=== PATIENT | male | born 1970 | race Caucasian/White ===

== ENCOUNTER → 2017-11-04 13:32 | Outpatient (CLI) | payer MEDICAID, SELFPAY ==
[2017-11-04 13:58] LABS: Hematocrit 34.9 % (40-54); Hemoglobin 11.5 g/dl (13.0-16.5); Mean Corpuscular Volume 94.1 fL (80-94); Mean Platelet Vol. 8.6 fl (6.2-12.0); Platelet Count 400 K/mm3 (150-450); RBC Distribution Width CV 14.4 % (11.6-14.6); RBC Distribution Width SD 47.2 fl (35.1-43.9); Red Blood Count 3.71 M/mm3 (4.6-6.2); White Blood Count 8.3 K/mm3 (4.4-11.0)
[2017-11-04 13:59] LABS: Scan Indicated on CBC? Y/N NO
[2017-11-04 14:45] LABS: AST(SGOT) 24 U/L (15-37); Alanine Aminotransfer ALT/SGPT 29 U/L (16-61); Albumin, Serum 3.6 g/dL (3.2-5.0); Alkaline Phosphatase 92 U/L (45-117); Anion Gap 8 (5-15); BUN 14 mg/dL (7-18); BUN/Creat Ratio 12.6 RATIO (10-20); Calcium,Total 8.3 mg/dL (8.5-10.1); Chloride 104 mmol/L (98-107); Creatinine, Serum 1.11 mg/dL (0.70-1.30); EST Glomerular Filtration Rate 75 mL/min (>60); Est Glom Filt Rate - Afr Amer 91 mL/min (>60); Globulin 3.7 g/dL (2.2-4.2); Glucose 93 mg/dL (74-106); Magnesium 1.5 mg/dL (1.6-2.6); Phosphorus 2.3 mg/dL (2.5-4.9); Potassium 3.9 mmol/L (3.5-5.1); Protein, Total 7.3 g/dL (6.4-8.2); Sodium Level 138 mmol/L (136-145)
[2017-11-05 10:42] LABS: Vitamin B12 177 pg/mL (211-911)
== END ==
PROVIDERS: Family Provider Family Medicine; PCP Family Medicine; Visit Provider Nurse Practitioner Acute Care
DX: R78.89 Finding of other specified substances, not normally found in blood (principal)
CPT/HCPCS: 36415; 80053; 82140; 82607; 82746; 83735; 84100; 85027

== ENCOUNTER → 2017-12-03 10:12 | Outpatient (CLI) | payer MEDICAID, SELFPAY ==
[2017-12-03 12:50] LABS: Absolute Lymphocyte Count 1.97 X10^3/ul (0.83-4.51); Absolute Neutrophil Count 5.2 X10^3/uL (2.0-7.7); Basophil# 0.12 X10^3/uL; Basophil% 1.4 % (0-1); Eosinophil# 0.38 X10^3/uL; Eosinophils% 4.5 % (0-5); Hematocrit 39.6 % (40-54); Hemoglobin 12.8 g/dl (13.0-16.5); Lymphocyte # 1.97 X10^3/ul (4.0); Lymphocyte % 23.3 % (19-41); Mean Corp Hgb Conc 32.3 g/gl (32-36); Mean Corpuscular Hgb 29.9 pg (27.0-32.0); Mean Corpuscular Volume 92.5 fL (80-94); Mean Platelet Vol. 9.2 fl (6.2-12.0); Monocyte# 0.83 X10^3/uL; Monocyte% 9.8 % (0-10); Neutrophil # 5.15 X10^3/uL (2.7-7.7); Neutrophil % 60.8 % (47-70); Platelet Count 419 K/mm3 (150-450); RBC Distribution Width CV 14.9 % (11.6-14.6); Red Blood Count 4.28 M/mm3 (4.6-6.2); White Blood Count 8.5 K/mm3 (4.4-11.0)
[2017-12-03 12:57] LABS: POSITIVE COUNT NO; POSITIVE DIFFERENTIAL NO; POSITIVE MORPHOLOGY NO
[2017-12-03 13:05] LABS: Vitamin B12 369 pg/mL (211-911)
[2017-12-03 13:10] LABS: ALB/GLOB Ratio 1.1 RATIO (0.9-2.4); AST(SGOT) 43 U/L (15-37); Alanine Aminotransfer ALT/SGPT 42 U/L (16-61); Albumin, Serum 4.2 g/dL (3.2-5.0); Alkaline Phosphatase 106 U/L (45-117); Anion Gap 10 (5-15); BUN 15 mg/dL (7-18); BUN/Creat Ratio 10.4 RATIO (10-20); Calcium,Total 8.6 mg/dL (8.5-10.1); Chloride 106 mmol/L (98-107); Cholesterol 254 mg/dL (200); Creatinine, Serum 1.44 mg/dL (0.70-1.30); EST Glomerular Filtration Rate 56 mL/min (>60); Est Glom Filt Rate - Afr Amer 67 mL/min (>60); Globulin 3.9 g/dL (2.2-4.2); Glucose 132 mg/dL (74-106); High Density Lipoprotein 46 mg/dL; Magnesium 1.5 mg/dL (1.6-2.6); Potassium 3.9 mmol/L (3.5-5.1); Protein, Total 8.1 g/dL (6.4-8.2); Sodium Level 137 mmol/L (136-145); T4 Free Direct 0.86 ng/dL (0.76-1.46); Thyroid Stim Hormone (TSH) 4.75 uIU/mL (0.358-3.74); Triglycerides 1118 mg/dL
[2017-12-03 17:53] LABS: Hemoglobin A1c 5.2 % (4.2-6.3)
[2017-12-08 11:24] LABS: Anti-Thyroglobulin AB < 1.0 IU/mL (0.0-0.9); Thyroglobulin, Serum Qt. 26.3 ng/mL (1.4-29.2); Thyroid Peroxidase AB 12 IU/mL (0-34)
== END ==
PROVIDERS: Family Provider Family Medicine; PCP Family Medicine; Visit Provider Family Medicine
DX: R94.6 Abnormal results of thyroid function studies (principal)
CPT/HCPCS: 36415; 80053; 80061; 82607; 83036; 83735; 84425; 84432; 84439; 84443; 85025; 86376; 86800

== ENCOUNTER → 2017-12-23 13:41 | Outpatient (CLI) | payer MEDICAID, SELFPAY ==
[2017-12-23 16:11] LABS: Anion Gap 12 (5-15); BUN 13 mg/dL (7-18); BUN/Creat Ratio 10.1 RATIO (10-20); Calcium,Total 9.2 mg/dL (8.5-10.1); Chloride 105 mmol/L (98-107); Creatinine, Serum 1.29 mg/dL (0.70-1.30); EST Glomerular Filtration Rate 63 mL/min (>60); Est Glom Filt Rate - Afr Amer 76 mL/min (>60); Glucose 83 mg/dL (74-106); Potassium 3.9 mmol/L (3.5-5.1); Sodium Level 138 mmol/L (136-145)
== END ==
PROVIDERS: Family Provider Family Medicine; PCP Family Medicine; Visit Provider Family Medicine
DX: R94.4 Abnormal results of kidney function studies (principal)
CPT/HCPCS: 36415; 80048

== ENCOUNTER → 2018-02-25 14:42 | Outpatient (CLI) | payer MEDICAID, SELFPAY ==
[2018-02-25 16:34] LABS: Vitamin B12 309 pg/mL (211-911)
[2018-02-25 16:45] LABS: ALB/GLOB Ratio 1.1 RATIO (0.9-2.4); AST(SGOT) 26 U/L (15-37); Alanine Aminotransfer ALT/SGPT 31 U/L (16-61); Albumin, Serum 4.1 g/dL (3.2-5.0); Alkaline Phosphatase 73 U/L (45-117); Anion Gap 9 (5-15); BUN 16 mg/dL (7-18); BUN/Creat Ratio 10.5 RATIO (10-20); Calcium,Total 9.1 mg/dL (8.5-10.1); Chloride 102 mmol/L (98-107); Cholesterol 280 mg/dL (200); Creatinine, Serum 1.53 mg/dL (0.70-1.30); EST Glomerular Filtration Rate 52 mL/min (>60); Est Glom Filt Rate - Afr Amer 63 mL/min (>60); Globulin 3.8 g/dL (2.2-4.2); Glucose 98 mg/dL (74-106); High Density Lipoprotein 55 mg/dL; Magnesium 1.7 mg/dL (1.6-2.6); Potassium 3.9 mmol/L (3.5-5.1); Protein, Total 7.9 g/dL (6.4-8.2); Sodium Level 139 mmol/L (136-145); T4 Free Direct 0.82 ng/dL (0.76-1.46); Triglycerides 732 mg/dL
[2018-03-03 15:42] LABS: Vitamin B1, Thiamine 188.4 nmol/L (66.5-200.0)
== END ==
PROVIDERS: Family Provider Family Medicine; PCP Family Medicine; Visit Provider Family Medicine
DX: E83.42 Hypomagnesemia (principal); E51.9 Thiamine deficiency, unspecified; E53.8 Deficiency of other specified B group vitamins; E78.1 Pure hyperglyceridemia; I10 Essential (primary) hypertension; N40.0 Benign prostatic hyperplasia without lower urinary tract symptoms; E03.9 Hypothyroidism, unspecified
CPT/HCPCS: 36415; 80053; 80061; 82607; 83735; 84153; 84425; 84439; 84443; G0103

== ENCOUNTER 2018-05-29 11:25 | Emergency (ER) | payer MEDICAID, SELFPAY ==
[2018-05-29 11:26] VITALS: BP 147/103; PULSE 123; RESP 15; TEMP 36.8; O2SAT 100; BMI 35.4
--- NOTE | 2018-05-29 11:51 | ED.DCSUM_ITS ---
- ER Visit Summary Date of Service: 05/29/18 Chief Complaint: Rectal pain History of Present Illness: The patient is a 47 M who presents with worsening rectal pain for the past week. Patient states he has a anal fissure and is scheduled to have surgery on Wednesday by Dr. Yanes. Patient states the pain be came unbearable today. Patient states the pain is worse with sitting and walking. She also states his pain is worse with any bowel movement. Patient denies any rectal bleeding. Patient denies any abdominal pain. Patient admits to decreased appetite but denies any nausea or vomiting. Patient denies any fevers or chills. Physical Examination: Vital signs are stable except for mild tachycardia of 123. Patient is afebrile. Patient is in no acute distress. Oral mucosa is pink and moist. Neck is supple. Trachea is midline. There is no JVD noted. Heart was regular and tachycardic. Lungs are clear and equal bilateral. There is good respiratory effort noted. Abdomen is soft. Bowel sounds are normal. There is no tenderness noted. Rectal exam showed some tenderness but there is no active bleeding noted. Patient was unable to tolerate any digital rectal exam. I do not see any external hemorrhoids. Cranial nerves II through XII are intact. There are no focal motor or sensory deficits noted. The remaining physical exam is within normal limits. Test Results: CBC showed a mild leukocytosis of 12.6. Creatinine was slightly elevated at 1.34. Urinalysis showed an occult blood of 10 but there were 0 red blood cells. Acute abdominal x-rays were obtained. There is no evidence of any perforation or obstruction. Emergency Department Course and Treatment: Patient was given injections of morphine and Dilaudid here. Patient states she still has severe rectal pain. Case was discussed with Dr. Yanes. He is going to see the patient in consultation if the hospitalist is willing to admit the patient. Case was discussed with the hospitalist. He feels the patient can go home and follow-up as an outpatient. Patient was given prescription for Percocet and B&O suppositories. Patient understood and was agreeable with the plan. All questions were answered. Disposition: Discharged home Impression: Rectal pain This note was generated with [employer] dictation software. It may contain incorrect words, spelling, and punctuation that were not noted in review of the chart prior to signing ED Disposition - Plan for ED Patient: Disposition: Home or Assisted Living Chief Complaint: Other, Pain/Inj Diagnosis: Rectal pain Instructions: ED Fissure Anal Ch, ED Hemorrhoids Prescriptions: Oxycodone HCl/Acetaminophen [Percocet 5/325] 1 tab PO Q6H PRN PRN 3 Days #12 tab PRN Reason: Pain Opium/Belladonna Alkaloids [B & O] 60 mg RECTAL DAILY #3 suppos. Referrals: Zia Osman MD [Primary Care Provider] -
[2018-05-29] MEDS: 0.9% Normal Saline 1,000 ML 1000 ML IV (11:59)
[2018-05-29] MEDS: Morphine 4 MG/ML Syringe IV (11:59)
--- NOTE | 2018-05-29 12:08 | RAD_ITS ---
STUDY: X-RAY - ACUTE ABDOMINAL SERIES REASON FOR EXAM: Male, 47 years old. Abdominal pain TECHNIQUE: Single view of the chest. Supine, and erect view(s) of the abdomen were obtained. COMPARISON: None. FINDINGS: The lungs are clear and expanded. Normal size heart. Normal mediastinum and kwame. Normal visualized pulmonary arteries. Normal visualized aortic arch and descending thoracic aorta. Nonobstructive bowel gas pattern with scattered air-fluid levels. The soft tissue structures of the abdomen and pelvis are unremarkable. Normal visualized osseous structures. RAD/Acute Abdomen Inc Chest IMPRESSION: Clear lungs. Nonobstructive bowel gas pattern Electronically Signed: Rupert Rodgers DO at 13:19 EDT Tel , Service support ,
[2018-05-29 12:40] LABS: Absolute Lymphocyte Count 1.22 X10^3/ul (0.83-4.51); Basophil# 0.04 X10^3/uL; Basophil% 0.3 % (0-1); Eosinophil# 0.21 X10^3/uL; Eosinophils% 1.7 % (0-5); Hematocrit 34.4 % (40-54); Lymphocyte # 1.22 X10^3/ul (4.0); Lymphocyte % 9.7 % (19-41); Mean Corpuscular Hgb 29.6 pg (27.0-32.0); Mean Corpuscular Volume 92.5 fL (80-94); Mean Platelet Vol. 8.7 fl (6.2-12.0); Monocyte# 1.12 X10^3/uL; Monocyte% 8.9 % (0-10); Neutrophil # 10.01 X10^3/uL (2.7-7.7); Neutrophil % 79.1 % (47-70); POSITIVE COUNT NO; POSITIVE DIFFERENTIAL NO; POSITIVE MORPHOLOGY NO; Platelet Count 580 K/mm3 (150-450); RBC Distribution Width CV 14.1 % (11.6-14.6); Red Blood Count 3.72 M/mm3 (4.6-6.2); White Blood Count 12.6 K/mm3 (4.4-11.0)
--- NOTE | 2018-05-29 12:42 | ED.RN ---
PT REQUESTING PAIN MEDICATION, DR. SMALL AWARE.
[2018-05-29 12:45] LABS: Bacteria 0 SEEN /hpf (None Seen); Mucous, Urine 0 SEEN /hpf (<or=2+); Red Blood Cells-Urine 0 SEEN /hpf (0-5); Squamous Epithelial Cells - UA 0 SEEN /hpf (0-5); White Blood Cells 0 SEEN /hpf (0-5)
[2018-05-29 12:47] LABS: Color, Urine Yellow (Yellow); Glucose, Dipstick Normal (Normal); Ketone-Dipstick Negative (Negative); Leukocyte Esterase-Dipstick Negative /ul (Negative); Nitrite-Dipstick Negative (Negative); Occult Blood-Urine 10 /ul (Negative); Protein-Dipstick 15 mg/dl (Negative); Specific Gravity, Urine 1.015 (1.002-1.030); Urine Bilirubin Dipstick Negative (Negative); Urine Clarity Clear (Clear); Urine Urobilinogen Normal (Normal)
[2018-05-29 12:49] LABS: ALB/GLOB Ratio 0.8 RATIO (0.9-2.4); AST(SGOT) 16 U/L (15-37); Alanine Aminotransfer ALT/SGPT 38 U/L (16-61); Albumin, Serum 3.5 g/dL (3.2-5.0); Alkaline Phosphatase 117 U/L (45-117); Anion Gap 9 (5-15); BUN 14 mg/dL (7-18); BUN/Creat Ratio 10.4 RATIO (10-20); Chloride 100 mmol/L (98-107); Creatinine, Serum 1.34 mg/dL (0.70-1.30); EST Glomerular Filtration Rate 60 mL/min (>60); Est Glom Filt Rate - Afr Amer 73 mL/min (>60); Estimated Creatinine Clearance 67.42 ml/min; Globulin 4.4 g/dL (2.2-4.2); Glucose 98 mg/dL (74-106); Potassium 3.3 mmol/L (3.5-5.1); Protein, Total 7.9 g/dL (6.4-8.2); Sodium Level 134 mmol/L (136-145)
[2018-05-29] MEDS: Morphine 2 MG/ML Syringe IV (13:24)
[2018-05-29 13:56] VITALS: RESP 16
[2018-05-29] MEDS: HYDROmorphone 0.5 MG/0.5 ML SYRINGE IV (14:59)
[2018-05-29 15:33] VITALS: BP 140/73; PULSE 96; RESP 18; O2SAT 98
--- NOTE | 2018-05-29 15:34 | ED.RN ---
PT GIVEN WRITTEN AND VERBAL DISCHARGE INSTRUCTIONS AND HOME GOING PRESCRIPTIONS, EDUCATED NOT TO DRIVE AFTER HAVING NARCOTIC MEDICATION. PT VERBALIZES UNDERSTANDING. PT IV D/C AND COVERED WITH 2X2 GAUZE DRESSING AND PAPER TAPE. PT DRESSES SELF AND AMBULATES OUT OF DEPT WITH MOTHER.
--- NOTE | 2018-05-29 16:09 | ED.RN ---
PT SISTER CALLED ER. NONE OF THE PHARMACIES IN [facility] ARE ABLE TO FILL SUPPOSITORY SCRIPT. DR. SMALL INFORMED. HOME PACK FOR RECTAL SUPPOSITORY ORDERED. PT TO RETURN TO ED TO KNITTING TESTER MEDICATION.
== END 2018-05-29 15:43 | disposition home or self-care (01) ==
PROVIDERS: Emergency Provider Emergency Medicine; Family Provider Family Medicine; PCP Family Medicine
DX: K62.89 Other specified diseases of anus and rectum (principal); I10 Essential (primary) hypertension; K21.9 Gastro-esophageal reflux disease without esophagitis; N40.0 Benign prostatic hyperplasia without lower urinary tract symptoms; F17.200 Nicotine dependence, unspecified, uncomplicated
CPT/HCPCS: 74022; 80053; 81001; 85025; 99282; J7030

== ENCOUNTER 2018-05-30 16:37 | Observation (INO) | payer MEDICAID, SELFPAY ==
[2018-05-30] VITALS (10 sets, daily range): BP systolic 129–158; BP diastolic 73–106; PULSE 96–113; RESP 14–18; TEMP 36.9–37.3; O2SAT 87–100; BMI 35.4
--- NOTE | 2018-05-30 16:34 | PCM.OPRPT ---
Problem List (1) Perianal abscess Status: Acute Report of Operation Date of Procedure: 05/30/18 Pre-Operative Diagnosis: Left perianal abscess Post-Operative Diagnosis: Left perirectal abscess Surgery/Procedure Performed:: Incision and drainage of left perirectal abscess Description of Surgical Findings:: Timeout informed consent was obtained. 47-year-old gentleman was taken out from. He underwent general endotracheal intubation anesthesia. He was placed prone jackknife on the table. The perianal area was prepped with Betadine. He received Invanz 1 g. There was fluctuance left and anteriorly. I used a 15 blade to incise this circumferential with the anus copious amount of pus emanated. Specimen was obtained for Gram stain culture and sensitivity. Copious amounts of purulence was obtained. Digitally I broke up loculations and extended anteriorly toward the base of the penis. I bluntly broke up all of the loculations identifying that this was for more than a perianal abscess and was consistent with a perirectal abscess. I then irrigated the cavity. I placed 1/2 inch Nu Gauze wick to the depths of the abscess with some slight packing. Sterile gauze dressings applied. Cover dressings applied. Sponge and instrument and needle count correct. Specimen none. Cultures obtained. Drains half-inch Nu Gauze. Blood loss minimal. He was taken to the recovery area in satisfactory condition without apparent complication Chuck Yanes M.D., F.A.C.S. Type of Anesthesia:: General Anesthesiologist: Jovana Franco
[2018-05-30] MEDS: Bupivacaine 0.5% PF 10 ML VIAL (16:37)
[2018-05-30] MEDS: Magnesium Oxide 400 MG Tablet PO (18:03)
[2018-05-30] MEDS: HYDROcodone Bitartrate/Apap 5/325 Tablet PO (18:03)
[2018-05-30] MEDS: Tamsulosin HCl 0.4 MG Capsule PO (18:04)
[2018-05-30] MEDS: Morphine 4 MG/ML Syringe IV (18:04)
[2018-05-30] MEDS: Lactated Ringers 1,000 ML 50 ML IV (18:18)
[2018-05-30] MEDS: hydrALAZINE 20 MG/ML Vial 5 MG IV (18:58)
[2018-05-30] MEDS: HYDROmorphone 1 MG/ML Syringe IV ×2 (19:00→22:15)
[2018-05-31] MEDS: HYDROmorphone 1 MG/ML Syringe IV ×6 (02:29→21:02)
[2018-05-31 02:54] VITALS: BP 131/55; PULSE 91; RESP 14; TEMP 37.2; O2SAT 93
[2018-05-31 05:37] LABS: Absolute Lymphocyte Count 1.29 X10^3/ul (0.83-4.51); Absolute Neutrophil Count 9.4 X10^3/uL (2.0-7.7); Basophil# 0.04 X10^3/uL; Basophil% 0.3 % (0-1); Eosinophil# 0.12 X10^3/uL; Hematocrit 34.5 % (40-54); Hemoglobin 11.1 g/dl (13.0-16.5); Lymphocyte # 1.29 X10^3/ul (4.0); Lymphocyte % 10.4 % (19-41); Mean Corp Hgb Conc 32.2 g/gl (32-36); Mean Corpuscular Hgb 29.8 pg (27.0-32.0); Mean Corpuscular Volume 92.7 fL (80-94); Mean Platelet Vol. 8.1 fl (6.2-12.0); Monocyte# 1.44 X10^3/uL; Monocyte% 11.7 % (0-10); Neutrophil # 9.41 X10^3/uL (2.7-7.7); Neutrophil % 76.2 % (47-70); Platelet Count 575 K/mm3 (150-450); RBC Distribution Width SD 46.3 fl (35.1-43.9); Red Blood Count 3.72 M/mm3 (4.6-6.2); White Blood Count 12.4 K/mm3 (4.4-11.0)
[2018-05-31] MEDS: Acetaminophen 325 MG Tablet 650 MG PO ×2 (05:47→17:21)
--- NOTE | 2018-05-31 05:47 | PCM.PN.SRG ---
Subjective: Pt still c/o significant pain but much improved over preop - Physical Exam Abdomen: - - light bloody perianal drainage Vital Signs Temp Pulse Resp BP Pulse Ox 98.9 F 91 14 131/55 H 93 05/31/18 02:54 05/31/18 02:54 05/31/18 02:54 05/31/18 02:54 05/31/18 02:54 Oxygen Flow Rate (L/min) 2 Oxygen Delivery Method Room Air Weight: 240 lb Body Mass Index (BMI) 35.4 Finger Stick Blood Glucose 106 Intake and Output for Last 24 Hours 05/29/18 05/30/18 05/31/18 23:59 23:59 23:59 Intake Total 800 / 800 962 / 962 Output Total 900 / 900 Balance 800 / 800 62 / 62 Laboratory Tests Past 24 Hrs 05/31/18 05/31/18 05:20 05:20 WBC Pending RBC Pending Hgb Pending Hct Pending MCV Pending MCH Pending MCHC Pending RDW Pending RDW Differential Pending Plt Count Pending Neut % (Auto) Pending Absolute Neuts (auto) Pending Total Counted Pending Sodium Pending Potassium Pending Chloride Pending Carbon Dioxide Pending Anion Gap Pending BUN Pending Creatinine Pending Est GFR (MDRD) Af Amer Pending Est GFR (MDRD) Non-Af Pending BUN/Creatinine Ratio Pending Glucose Pending Calcium Pending Medical Necessity - Tobacco Use Smoking Status: Current every day smoker Assessment/Plan All Active Problems (Last Updated 01/04/18 @ 13:48 by Morelia Guidry) Perianal abscess (Acute) Urinary retention due to benign prostatic hyperplasia (Acute) Urinary retention (Acute) Acute encephalopathy (Acute) Serotonin syndrome (Resolved) Alcohol abuse, daily use (Acute) Need to advance wick gauze Will start thiamine [facility] home tomorrow
[2018-05-31] MEDS: Enoxaparin 40 MG/0.4 ML Syringe SC (05:48)
[2018-05-31 05:52] LABS: Anion Gap 10 (5-15); BUN 14 mg/dL (7-18); BUN/Creat Ratio 14.5 RATIO (10-20); Calcium,Total 9.1 mg/dL (8.5-10.1); Chloride 98 mmol/L (98-107); Creatinine, Serum 0.96 mg/dL (0.70-1.30); EST Glomerular Filtration Rate 88 mL/min (>60); Est Glom Filt Rate - Afr Amer 107 mL/min (>60); Glucose 98 mg/dL (74-106); Potassium 3.5 mmol/L (3.5-5.1); Sodium Level 134 mmol/L (136-145)
[2018-05-31] MEDS: Lactated Ringers 1,000 ML 30 ML IV ×2 (05:58→21:16)
[2018-05-31 06:25] LABS: POSITIVE COUNT NO; POSITIVE DIFFERENTIAL NO; POSITIVE MORPHOLOGY NO
[2018-05-31] MEDS: Magnesium Oxide 400 MG Tablet PO ×2 (08:42→17:15)
[2018-05-31] MEDS: Pantoprazole Sodium 40 MG Tablet PO (08:43)
[2018-05-31] MEDS: Finasteride 5 MG Tablet PO (08:44)
[2018-05-31] MEDS: Lisinopril 20 MG Tablet PO (08:49)
[2018-05-31] MEDS: hydroCHLOROthiazide 12.5mg 12.5 MG PO (08:49)
[2018-05-31] MEDS: Thiamine Hydrochloride 100 MG Tablet PO (08:49)
[2018-05-31 08:52] VITALS: BP 155/88; PULSE 93; RESP 16; TEMP 36.8; O2SAT 96
[2018-05-31] MEDS: 0.9% NaCl Peripheral Flush Adult/Peds IV ×2 (10:12→21:05)
[2018-05-31] MEDS: HYDROcodone Bitartrate/Apap 5/325 Tablet PO ×2 (12:35→23:39)
--- NOTE | 2018-05-31 13:37 | CASEMGMT ---
Addendum entered by Danny Casarez 05/31/18 14:16: Attempted calls to 5 Home Care agencies listed as [facility] on [facility] site. All are unavailable to take pt for Home Care. Charge nurse and nurse updated. Recommendation: as directed by physician, but if pt will need dressing changes @ home- to have mother be taught dressing changes prior to dc and f/u in physician office. Original Note: RN CM Assessment PCP: Dr. Carolina Osman Pharmacy: [facility]. lives alone, plans to have his mother assist with dressing changes @ home. Prescription coverage: yes DC PLAN: Home, may need [facility] to assist with teaching dressing changes to mother. Will need script for supplies.
[2018-05-31 14:37] VITALS: BP 149/92; PULSE 86; RESP 16; TEMP 36.8; O2SAT 96
[2018-05-31 14:48] VITALS: O2SAT 96
--- NOTE | 2018-05-31 14:57 | CASEMGMT ---
RN CM Note: per nursing, mother will not be able to assist with dressing changes, cannot drive and pt does not have anyone to assist. Home Health is not option at this time as local agencies are unavailable. Consideration may need to be given for SNF. Message left with Alan to evaluate for short term SNF placement for post-op care, dressing changes. Vijay OCONNORN RN ACM
--- NOTE | 2018-05-31 17:01 | CASEMGMT ---
Social Work Note SW met with pt to confirm discharge plans. Pt's mom and other guest present in room. Pt gave this worker permission to speak to him in front of his guest. SW informed pt that this worker was informed that his mother is unable to do dressing changes now as his mother is blind. Pt confirmed this. SW asked pt what he would like to do in regards to discharge plans now. Pt states he is unsure. SW explained that any family member or friend that would be willing to learn to do daily dressing changes could do so. SW reiterated though that HHC wouldn't be out everday and someone would need to be at pt's home to learn dressing changes and to do so on the days a nurse doesn't come out. SW explained SNF. SW explained referral process and that pt will need pre-cert from pt's insurance. SW explained that this worker is unsure if pt's insurance would approve though if pt only requires daily dressing changes. SW provided pt with list of in network SNF. Pt's mom and guest state that they would like to speak to additional family tonight to determine discharge plans. SW informed pt and his guest that a SW can follow up with pt and his family tomorrow to confirm discharge plans. Pt states understanding. Plan: CECILIA Wray MANAGER MARITIME, QA TEST ANALYST
[2018-05-31] MEDS: Tamsulosin HCl 0.4 MG Capsule PO (17:15)
[2018-05-31 21:31] VITALS: BP 150/87; PULSE 88; RESP 18; TEMP 36.9; O2SAT 95
[2018-06-01] MEDS: HYDROmorphone 1 MG/ML Syringe IV (04:00)
[2018-06-01] MEDS: 0.9% NaCl Peripheral Flush Adult/Peds IV (04:00)
[2018-06-01 04:03] VITALS: BP 148/82; PULSE 100; RESP 18; TEMP 36.9; O2SAT 95
--- NOTE | 2018-06-01 06:18 | PCM.PN.SRG ---
Subjective: No stool yet C/o burning - Physical Exam Abdomen: - - minimal drainage and decreased induration Vital Signs Temp Pulse Resp BP Pulse Ox 98.4 F 100 18 148/82 H 95 06/01/18 04:03 06/01/18 04:03 06/01/18 04:03 06/01/18 04:03 06/01/18 04:03 Oxygen Flow Rate (L/min) 2 Oxygen Delivery Method Room Air Weight: 240 lb Body Mass Index (BMI) 35.4 Finger Stick Blood Glucose 106 Intake and Output for Last 24 Hours 05/30/18 05/31/18 06/01/18 23:59 23:59 23:59 Intake Total 800 / 800 5141 / 5141 Output Total 2425 / 2425 Balance 800 / 800 2716 / 2716 Microbiology Past 72 Hours 05/30/18 16:26 Gram Stain - Final Rectal Abscess Wound Culture - Preliminary Gram negative hola 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 Laboratory Tests Past 24 Hrs 05/31/18 05:20 WBC 12.4 H RBC 3.72 L Hgb 11.1 L Hct 34.5 L MCV 92.7 MCH 29.8 MCHC 32.2 RDW 14.0 RDW Differential 46.3 H Plt Count 575 H MPV 8.1 Immature Gran % (Auto) 0.400 Neut % (Auto) 76.2 H Lymph % (Auto) 10.4 L [place] % (Auto) 11.7 H Eos % (Auto) 1.0 Baso % (Auto) 0.3 Absolute Neuts (auto) 9.4 H Absolute Lymphs (auto) 1.29 Total Counted Not Reportable Medical Necessity - Tobacco Use Smoking Status: Current every day smoker Assessment/Plan All Active Problems (Last Updated 01/04/18 @ 13:48 by Morelia Guidry) Perianal abscess (Acute) Urinary retention due to benign prostatic hyperplasia (Acute) Urinary retention (Acute) Acute encephalopathy (Acute) Serotonin syndrome (Resolved) Alcohol abuse, daily use (Acute) Plan for wick advancement today Plan discharge to home today He can return to office tomorrow possibly for final wick removal
[2018-06-01] MEDS: Enoxaparin 40 MG/0.4 ML Syringe SC (06:32)
[2018-06-01] MEDS: HYDROcodone Bitartrate/Apap 5/325 Tablet PO ×2 (06:38→13:09)
[2018-06-01] MEDS: Polyethylene Glycol 3350 17 GM PACKET 34 GM PO (06:39)
[2018-06-01] MEDS: Bisacodyl 5 MG Tablet 10 MG PO (06:40)
[2018-06-01] MEDS: Pantoprazole Sodium 40 MG Tablet PO (08:22)
[2018-06-01] MEDS: Magnesium Oxide 400 MG Tablet PO (08:57)
[2018-06-01] MEDS: hydroCHLOROthiazide 12.5mg 12.5 MG PO (08:57)
[2018-06-01] MEDS: Thiamine Hydrochloride 100 MG Tablet PO (08:57)
[2018-06-01] MEDS: Ibuprofen 600 MG Tablet PO (08:58)
[2018-06-01] MEDS: Lisinopril 20 MG Tablet PO (08:58)
[2018-06-01] MEDS: Finasteride 5 MG Tablet PO (08:58)
--- NOTE | 2018-06-01 09:40 | CASEMGMT ---
Addendum entered by Zahra Turcios 06/01/18 10:10: SW spoke w/Karine Kirby, she confirmed that pt has an appointment tomorrow at the office at 10am and it is anticipated they will take the packing out of the wound, and will just need a dry dressing change. She states pt does not need anything else at this point for homegoing, she is aware that pt will not be able to have home health. Also, pt will be given a script tomorrow for any dressing change needs at home. SW spoke w/pt again, let him know that he did have the correct understanding, that he will follow up in the office tomorrow and it is anticipated the packing will be taken out, and will just need dry dressing changes. SW also let pt know that they will give him a prescription for any dressing supplies needed. SW did ask pt about his depression, pt states he is not on meds, but is feeling okay at this time. Pt declined any referrals for counseling at this time. SW asked pt about his alcohol use, pt states he is not drinking as much, just occasionally, also declined needing any assist at this time. SAMEER then called pt's sister Mary Grace Will([phone]) at pt's request. SW reviewed w/pt's sister Mary Grace what the plan was for pt. Mary Grace was aware, just expressed concern if this is the right thing for the pt, she states she is concerned that the surgeon changed the plan based on his conversation w/the pt this morning that family was not able to assist pt with the dressing changes. She also states pt was upset by this conversation, support offered to pt and sister in regard to this. SAMEER explained that if there are any changes needed to the plan as it stands, they can assist with this tomorrow at his office follow up appointment. Pt's sister may not be able to attend the appointment w/pt, SW encouraged pt's sister to follow up w/the office if there are any questions after the appointment. Pt's sister states understanding. She will crab picker pt today when he is discharged. SAMEER also encouraged pt to have the office write down for him any instructions for home, pt states understanding. SAMEER called the office back and asked also if they would write down any instructions for pt at his appointment tomorrow. They will do so. No further needs, pt home today and has a follow up appt at Dr. Yanes's office tomorrow at 10am. SANDIP Subramanian, GRAIN GRADER Original Note: SW spoke w/RN, as per RN, pt spoke w/doctor this morning, plan now is for pt to go home today. Pt is to go into the office tomorrow to have the packing removed and after this the dressing change will not involve packing. SW spoke w/pt, he states he thinks he can do this himself, asked SW to call his sister however as his sister is concerned if this is the appropriate discharge plan. SW explained will call the surgeon's MILL OPERATOR HELPER to check in w/her to make sure that the pt has the correct understanding of what will be needed. Pt states understanding. SW called Karine Kirby, DELONTE, message left for her to call this SW back. SANDIP Subramanian, GRAIN GRADER
[2018-06-01 10:00] VITALS: BP 156/90; PULSE 85; PULSE 89; RESP 18; TEMP 36.7; O2SAT 96
[2018-06-01 13:31] VITALS: BP 152/91; PULSE 87; RESP 18; TEMP 36.7; O2SAT 96
--- NOTE | 2018-06-01 13:33 | PCM.DC.GS ---
Discharge Diet: Light diet - advance as tolerated Discharge Activity: May not drive while taking narcotic pain medications. Lifting Restrictions: 10 pounds Call your doctor if your incision/area has: Continuous Slow Oozing, Sudden Increased Bleeding, Increased Pain/ Swelling, Increased Redness, Foul Smelling Discharge, Swelling at the incision site Call your doctor if you observe: Fever of 101 or Higher, Numbness or Tingling Additional Instructions: May not drink alcohol while taking Bactrim. This can cause nausea, vomiting if mixed with alcohol. Allergies/Adverse Reactions: Allergies Penicillins Allergy (Verified 05/30/18 15:03) Unknown fluoxetine [From Prozac] Adverse Reaction (Verified 05/31/18 21:22) Other Medications to take at Discharge Omeprazole [Prilosec] 40 mg PO DAILY 07/04/15 Lisinopril/Hydrochlorothiazide [Zestoretic /.5 Tablet] 1 tab PO DAILY 06/17/17 Meloxicam [Mobic] 15 mg PO PRN PRN 06/17/17 Finasteride [Proscar] 5 mg PO DAILY #30 tab 06/20/17 Loperamide [Imodium] 2 mg PO Q4H PRN PRN 06/29/17 Magnesium Oxide [Mag-Ox 400] 400 mg PO BIDCM 06/29/17 Tamsulosin HCl [Flomax] 0.4 mg PO DAILY@1730 06/29/17 vitamin B12 500 mcg-folic acid 400 mcg tablet 1 tab PO QDAY 01/04/18 Opium/Belladonna Alkaloids [B & O] 60 mg RECTAL DAILY #3 suppos. 05/29/18 Hydrocodone Bitart/Apap 5-325 [[place] 5/325] 1 tablet PO Q6H PRN PRN 6 Days #20 tablet 06/01/18 Metronidazole [Flagyl] 500 mg PO Q8H #30 tablet 06/01/18 Smz/Tmp Ds [Bactrim Ds] 1 tablet PO BID #20 tablet 06/01/18 The following prescriptions were given: Hydrocodone Bitart/Apap 5-325 [[place] 5/325] 1 tablet PO Q6H PRN PRN 6 Days #20 tablet PRN Reason: Mild-Moderate (pain scale 1-5) Metronidazole [Flagyl] 500 mg PO Q8H #30 tablet Smz/Tmp Ds [Bactrim Ds] 1 tablet PO BID #20 tablet Primary Care Physician: Zia Osman MD [Primary Care Provider] - Test Results: Test results from this visit will be discussed in further detail at your follow-up appointment, if applicable. Please Follow Up With: Chuck Yanes MD When: at 10 AM Proposed Discharge Date: 06/01/18
--- NOTE | 2018-06-01 13:58 | PCM.DC.SUM ---
Discharge Date and Diagnosis Date of Admission: 05/30/18 Date of Discharge: 06/01/18 - Primary Discharge Diagnosis Perianal abscess - Secondary Discharge Diagnosis Chronic Problems (Last Updated 01/04/18 @ 13:48 by Morelia Guidry) HTN (hypertension) (Chronic) GERD (gastroesophageal reflux disease) (Chronic) Smoker (Chronic) Depression (Chronic) Hospital Course and Treatment Operations: - - Incision and drainage of left perianal abscess Summary of Care Provided: The patient is a 47 year old M who presented with a 1 week history of rectal pain. Dr. Yanes performed an incision and drainage of left perianal abscess on 05/30/18. Patient tolerated the procedure well. Patient had an uneventful hospital stay. Culture demonstrated proteus mirabilis, E coli, and enterococcus faecalis. Upon discharge, patient's pain was better controlled with oral pain medication. He was discharged to home on Bactrim and Flagyl. Patient was tolerating a diet well. He was having bowel movements and urinating well. - Physical Exam General: Alert, Oriented x3, Cooperative HEENT: Atraumatic, PERRLA, EOMI, Normocephalic Lungs: Clear to auscultation, Normal air movement Cardiovascular: Regular rate, No murmurs Abdomen: Bowel Sounds Present, Soft, Non Tender, - - Rectum- packing intact with ABD and gauze dry dressing intact Psych/Mental Status: Normal Affect, Appropriate Vital Signs Temp Pulse Resp BP Pulse Ox 98.0 F 87 18 152/91 H 96 06/01/18 13:31 06/01/18 13:31 06/01/18 13:31 06/01/18 13:31 06/01/18 13:31 Oxygen Flow Rate (L/min) 2 Oxygen Delivery Method Room Air Weight: 239 lb 15.994 oz Body Mass Index (BMI) 35.4 Finger Stick Blood Glucose 106 Intake and Output for Last 24 Hours 05/30/18 05/31/18 06/01/18 23:59 23:59 23:59 Intake Total 800 / 800 5141 / 5141 522 / 522 Output Total 2425 / 2425 500 / 500 Balance 800 / 800 2716 / 2716 Microbiology Past 72 Hours 05/30/18 16:26 Gram Stain - Final Rectal Abscess Wound Culture - Preliminary Proteus mirabilis GNR lactose card services specialist Gram Positive Cocci Anaerobic Culture - Preliminary Checking for anaerobes, further studies to follow. Discharge Diet: Light diet - advance as tolerated Discharge Activity: May not drive while taking narcotic pain medications. Call your doctor if your incision/area has: Continuous Slow Oozing, Sudden Increased Bleeding, Increased Pain/ Swelling, Increased Redness, Foul Smelling Discharge, Swelling at the incision site Call your doctor if you observe: Fever of 101 or Higher, Numbness or Tingling Home Medications: Medications to take at Discharge Omeprazole [Prilosec] 40 mg PO DAILY 07/04/15 Lisinopril/Hydrochlorothiazide [Zestoretic 28/07.5 Tablet] 1 tab PO DAILY 06/17/17 Meloxicam [Mobic] 15 mg PO PRN PRN 06/17/17 Finasteride [Proscar] 5 mg PO DAILY #30 tab 06/20/17 Loperamide [Imodium] 2 mg PO Q4H PRN PRN 06/29/17 Magnesium Oxide [Mag-Ox 400] 400 mg PO BIDCM 06/29/17 Tamsulosin HCl [Flomax] 0.4 mg PO DAILY@1730 06/29/17 vitamin B12 500 mcg-folic acid 400 mcg tablet 1 tab PO QDAY 01/04/18 Opium/Belladonna Alkaloids [B & O] 60 mg RECTAL DAILY #3 suppos. 05/29/18 Hydrocodone Bitart/Apap 5-325 [[place] 5/325] 1 tab PO Q6H PRN PRN 6 Days #20 tab 06/01/18 Metronidazole [Flagyl] 500 mg PO Q8H #30 tab 06/01/18 Smz/Tmp Ds [Bactrim Ds] 1 tab PO BID #20 tab 06/01/18 ABD pad #14 ea 06/02/18 gauze #14 ea 06/02/18 Following Prescrptions Were Given to Patient: Hydrocodone Bitart/Apap 5-325 [[place] 5/325] 1 tab PO Q6H PRN PRN 6 Days #20 tab PRN Reason: Mild-Moderate (pain scale 1-5) Metronidazole [Flagyl] 500 mg PO Q8H #30 tab Smz/Tmp Ds [Bactrim Ds] 1 tab PO BID #20 tab Primary Care Physician: Zia Osman MD [Primary Care Provider] - Please Follow Up With: Chuck Yanes MD When: at 10 AM Additional Instructions: May not drink alcohol while taking Bactrim. This can cause nausea, vomiting if mixed with alcohol. Disposition: Home Minutes spent on discharge:: 20 Patient Condition:: Good Medical Necessity - Tobacco Use Smoking Status: Current every day smoker Meaningful Use Info Meaningful Use Diagnoses (Choose all that apply): None applicable Code Visit Inpatient E&M: 06804 Disch Hosp
== END 2018-06-01 14:17 | disposition home or self-care (01) | DRG 223 ==
LOC: MS2 05-31 07:01
PROVIDERS: Admitting Provider Surgery; Family Provider Family Medicine; PCP Family Medicine; Referring Provider Surgery; Visit Provider Surgery
PROC: (CPT 46040; principal; 2018-05-30 15:15)
DX: K61.1 Rectal abscess (principal); I10 Essential (primary) hypertension; F17.200 Nicotine dependence, unspecified, uncomplicated; F32.9 Major depressive disorder, single episode, unspecified; K21.9 Gastro-esophageal reflux disease without esophagitis; B96.4 Proteus (mirabilis) (morganii) as the cause of diseases classified elsewhere; B96.20 Unspecified Escherichia coli [E. coli] as the cause of diseases classified elsewhere; B95.2 Enterococcus as the cause of diseases classified elsewhere; K76.0 Fatty (change of) liver, not elsewhere classified; Z79.899 Other long term (current) drug therapy; N40.1 Benign prostatic hyperplasia with lower urinary tract symptoms; R33.8 Other retention of urine
CPT/HCPCS: 46040; 36415; 74022; 80048; 80053; 81001; 85025; 87070; 87075; 87077; 87186; 87205; 96361; 96374; 96375; 99218; 99282; 99406; J7030; J7120; A4216; G0378; G0379; J2405

== ENCOUNTER → 2018-07-05 14:53 | Outpatient (CLI) | payer MEDICAID, SELFPAY ==
[2018-05-30 17:44] VITALS: BMI 35.4
[2018-07-05 15:51] LABS: Hematocrit 34.8 % (40-54); Hemoglobin 11.4 g/dl (13.0-16.5); Mean Corpuscular Hgb 29.8 pg (27.0-32.0); Mean Corpuscular Volume 91.1 fL (80-94); Red Blood Count 3.82 M/mm3 (4.6-6.2); White Blood Count 6.6 K/mm3 (4.4-11.0)
[2018-07-05 15:52] LABS: Absolute Lymphocyte Count 1.97 X10^3/ul (0.83-4.51); Absolute Neutrophil Count 3.7 X10^3/uL (2.0-7.7); Basophil# 0.07 X10^3/uL; Basophil% 1.1 % (0-1); Eosinophil# 0.35 X10^3/uL; Eosinophils% 5.3 % (0-5); Lymphocyte # 1.97 X10^3/ul (4.0); Mean Corp Hgb Conc 32.8 g/gl (32-36); Mean Platelet Vol. 9.2 fl (6.2-12.0); Monocyte# 0.49 X10^3/uL; Monocyte% 7.5 % (0-10); Neutrophil # 3.67 X10^3/uL (2.7-7.7); Neutrophil % 55.9 % (47-70); Platelet Count 378 K/mm3 (150-450); RBC Distribution Width SD 48.8 fl (35.1-43.9)
[2018-07-05 15:59] LABS: POSITIVE COUNT NO; POSITIVE DIFFERENTIAL NO; POSITIVE MORPHOLOGY NO
[2018-07-05 16:30] LABS: Vitamin B12 304 pg/mL (211-911)
[2018-07-05 17:03] LABS: ALB/GLOB Ratio 1.2 RATIO (0.9-2.4); AST(SGOT) 33 U/L (15-37); Alanine Aminotransfer ALT/SGPT 36 U/L (16-61); Alkaline Phosphatase 65 U/L (45-117); Anion Gap 10 (5-15); BUN 9 mg/dL (7-18); BUN/Creat Ratio 8.6 RATIO (10-20); Calcium,Total 8.4 mg/dL (8.5-10.1); Chloride 105 mmol/L (98-107); Cholesterol 248 mg/dL (200); Creatinine, Serum 1.05 mg/dL (0.70-1.30); EST Glomerular Filtration Rate 80 mL/min (>60); Est Glom Filt Rate - Afr Amer 97 mL/min (>60); Globulin 3.2 g/dL (2.2-4.2); Glucose 82 mg/dL (74-106); High Density Lipoprotein 57 mg/dL; Magnesium 1.1 mg/dL (1.6-2.6); Potassium 3.2 mmol/L (3.5-5.1); Protein, Total 7.2 g/dL (6.4-8.2); Sodium Level 142 mmol/L (136-145); T4 Free Direct 0.93 ng/dL (0.76-1.46); Thyroid Stim Hormone (TSH) 1.65 uIU/mL (0.358-3.74); Triglycerides 544 mg/dL
--- OUTSIDE RECORDS SUMMARY | 2018-08-31 06:56 | XMS RPT_ITS ---
:1970 Author Organization OHIP Support Name Relationship Address Phone MICHAEL, GWYN Unavailable [address] [place] [address] UE Unavailable Unavailable Unavailable MICHAEL, GWYN Unavailable [phone] [place] [address] UE Unavailable Unavailable Unavailable MICHAEL, GWYN Unavailable [phone] [place] [address] UE Unavailable Unavailable Unavailable MICHAEL, GWYN Unavailable [phone] [place] [address] UE Unavailable Unavailable Unavailable MICHAEL, GWYN Unavailable [phone] [place] [address] UE Unavailable Unavailable Unavailable MICHAEL, GWYN Unavailable [phone] [place] [address] UE Unavailable Unavailable Unavailable MICHAEL, GWYN Unavailable [phone] [place] [address] UE Unavailable Unavailable Unavailable MICHAEL, GWYN Unavailable [phone] [place] [address] UE Unavailable Unavailable Unavailable MICHAEL, GWYN Unavailable [phone] [place] [address] UE Unavailable Unavailable Unavailable MICHAEL, GWYN Unavailable [phone] [place] [address] UE Unavailable Unavailable Unavailable MICHAEL, GWYN Unavailable [phone] [place] [address] UE Unavailable Unavailable Unavailable MICHAEL, GWYN Unavailable [address] [phone] [place] [address] UE Unavailable Unavailable Unavailable UE Unavailable Unavailable Unavailable MICHAEL, GWYN Unavailable [address] + [place] [address] UE Unavailable Unavailable Unavailable STAFFORD, ELEONORA Unavailable [address] + [place] [address] MICHAEL, GWYN Unavailable [address] + [place] [address] UE Unavailable Unavailable Unavailable STAFFORD, ELEONORA Unavailable [address] + [place] [address] MICHAEL, GWYN Unavailable [address] + [place] [address] UE Unavailable Unavailable Unavailable STAFFORD, ELEONORA Unavailable [address] + [place] [address] MICHAEL, GWYN Unavailable [address] + [place] [address] UE Unavailable Unavailable Unavailable STAFFORD, ELEONORA Unavailable [address] + [place] [address] Care Team Providers Name Role Phone TONI JONES (CUSHION ASSEMBLER) Attending Unavailable STACEY HAGAN Referring Unavailable TONI JONES (CUSHION ASSEMBLER) Referring Unavailable Danielle SUBRAMANIAN (PA-C) Attending Unavailable Danielle SUBRAMANIAN (PA-C) Referring Unavailable Lena Staples CAR WHACKER-C Attending Unavailable Lena Staples CAR WHACKER-C Referring Unavailable Stacey Hagan Primary Care Unavailable Zia Osman Attending Unavailable Zia Osman Primary Care Unavailable Zia Osman Attending Unavailable Zia Osman Primary Care Unavailable Chuck Yanes Attending Unavailable Zia Osman Referring Unavailable Zia Osman Primary Care Unavailable Zia Osman Attending Unavailable Zia Osman Primary Care Unavailable Zia Osman Primary Care Unavailable Altaf Harkins Attending Unavailable Chuck Yanes Attending Unavailable Zia Osman Referring Unavailable Chuck Yanes Attending Unavailable Chuck Yanes Referring Unavailable Zia Osman Primary Care Unavailable Cebul, Chuck Admitting Unavailable Kirby PA-C, Karine Attending Unavailable Zia Osman Referring Unavailable Cebul, Chuck Admitting Unavailable Kirby PA-C, Karine Attending Unavailable Joaquín, Chuck Referring Unavailable Zia Osman Primary Care Unavailable Cebul, Chuck Consulting Unavailable Kirby PA-C, Karine Attending Unavailable Cebul, Chuck Attending Unavailable Robin Dacosta Attending Unavailable Vivianabul, Chuck Referring Unavailable Zia Osman Attending Unavailable Zia Osman Primary Care Unavailable Kirby PA-C, Karine Attending Unavailable Stacey Hagan Primary Care Unavailable Remington Luque Admitting Unavailable Remington Luque Attending Unavailable Eduardo Medina Consulting Unavailable PROBLEMS PROBLEMS DATE TYPE CONDITION / CODE ATTENDING STATUS SOURCE 07/08/2018 Unknown 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 Osman Active [facility] other specified [facility] / Hospital E53.8(ICD-10) Repository 06/02/2018 Unknown K61.0 - Anal abscess Mirta RIBEIRO Active [facility] / K61.0(ICD-10) [facility] Hospital Repository 06/22/2018 Unknown R00.0 - Tachycardia, Dacosta Robin Active [facility] unspecified / Community R00.0(ICD-10) Hospital Repository 06/22/2018 Unknown I10 - Essential Robin Dacosta Active [facility] (primary) Community hypertension / Hospital I10(ICD-10) Repository 05/29/2018 Unknown K62.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 SchwAltaf stern Active [place] specified diseases Community of anus and rectum / Hospital K62.89(ICD-10) Repository 03/10/2018 Unknown E83.42 - Zia Osman Active [place] Hypomagnesemia / E Community E83.42(ICD-10) Hospital Repository 01/04/2018 Unknown K21.9 - Chuck Yanes Active [facility] Gastro-esophageal [facility] reflux disease Hospital without esophagitis Repository / K21.9(ICD-10) 08/05/2017 Active Alcohol abuse, NA Active [facility] uncomplicated / Clinic Main F10.10(ICD-10) [place] Repository 08/06/2017 Active Disorientation, NA Active [facility] unspecified / Clinic Main R41.0(ICD-10) [facility] Rep[facility] 08/06/2017 Active Abnormal levels of NA Active [facility] other serum enzymes Clinic Main / R74.8(ICD-10) [place] Rep[facility] PROCEDURES PROCEDURES No Procedure Records FoundRESULTS RESULTS SURGERY VISIT REPORT Observed: 07/14/2018 Status: F Source: [place] 4:26 PM [facility] REPOSITORY [facility] 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 Transforming Required: No Is patient in pain?: No Allergies Penicillins Allergy (Verified 07/14/18 13:26) Unknown fluoxetine [From Prozac] Adverse Reaction (Verified 07/14/18 13:26) Other Medications Omeprazole [Prilosec] 40 mg PO DAILY 07/04/15 [History Confirmed 07/14/18] Lisinopril/Hydrochlorothiazide [Zestoretic 20/12.5 Tablet] 1 tab PO DAILY 06/17/17 [History Confirmed 07/14/18] Meloxicam [Mobic] 15 mg PO PRN PRN 06/17/17 [History Confirmed 07/14/18] Finasteride [Proscar] 5 mg PO DAILY #30 tab 06/20/17 [Rx Confirmed 07/14/18] Loperamide [Imodium] 2 mg PO Q4H PRN PRN 06/29/17 [History Confirmed 07/14/18] Magnesium Oxide [Mag-Ox 400] 400 mg PO BIDCM 06/29/17 [History Confirmed 07/14/18] Tamsulosin HCl [Flomax] 0.4 mg PO DAILY@1730 06/29/17 [History Confirmed 07/14/18] vitamin B12 500 mcg-folic acid 400 mcg tablet 1 tab PO QDAY 01/04/18 [History Confirmed 07/14/18] Subjective Details: Patient is a 47 y/o male I am following for a perianal abscess. Dr. Yanes performed an incision and drainage of a perianal abscess on 05/30/18. Patient tolerated the procedure well. Patient had a 2 day hospital stay. Microbiology demonstrated proteus mirabilis remaining culture pending. Patient notes the discomfort is greatly improved. He notes minimal amount of drainage. He denies fever. He has been taking antibiotics. Patient returns for a follow-up visit. Patient notes the area is completely healed. He denies pain/discomfort. Objective Details: Anus- completely healed incision noted right lateral region Assessment AND Plan Problems 1. Perianal abscess K61.0 Plan - Follow-up as needed Coding Level of Care Code Global Post Op Diagnoses Perianal abscess K61.0 07/14/18 1626 <Electronically signed by Karine Kirby PA-C> Date Karine Kirby PA-C Cosigner Signature: Date (if applicable) CC: CBC W/DIFF, AUTOMATED Collected: 07/05/2018 Status: F Source: [place] 2:54 PM [facility] REPOSITORY TYPE CODE TESTS RESULT OUT OF RANGE REFERENCE UNITS LAB L100.1000 4.4-11.0 K/mm3 Normal WBC 6.6 LAB L100.1200 4.6-6.2 M/mm3 Low RBC 3.82 LAB L100.1300 13.0-16.5 g/dl Low HGB 11.4 LAB L100.1400 40-54 % Low HCT 34.8 LAB L100.1500 80-94 fL Normal MCV 91.1 LAB L100.1600 27.0-32.0 pg Normal MCH 29.8 LAB L100.1700 32-36 g/gl Normal MCHC 32.8 LAB L100.1810 11.6-14.6 % High RDW CV 15.0 LAB L100.1820 35.1-43.9 fl High RDW SD 48.8 LAB L100.1900 150-450 K/mm3 Normal PLT 378 LAB L100.2000 6.2-12.0 fl Normal MPV 9.2 LAB L100.2100 47-70 % Normal NEUT% 55.9 LAB L100.2200 19-41 % Normal LY% 30.0 LAB L100.2300 0-10 % Normal MONO% 7.5 LAB L100.2400 0-5 % High EO% 5.3 LAB L100.2500 0-1 % High BASO% 1.1 LAB L100.2550 0.0-0.9 % Normal IM GRAN % 0.200 Result Comment: IG% - Immature Granulocytes (promyelocytes, myelocytes and metamyelocytes) > 1% indicates that a LEFT SHIFT is Present. LAB L100.2620 2.0-7.7 X10 3/uL Normal Absolute Neut 3.7 LAB L100.2720 0.83-4.51 X10 3/ul Normal Absolute Lymph 1.97 Performed By: #### L100.0100, L503.0105, L500.4050, L500.4100, L501.5200, L501.9520, L506.0400 #### [facility] [address] [place], [address] VITAMIN B12 Collected: 07/05/2018 Status: F Source: [place] 2:54 PM [facility] REPOSITORY TYPE CODE TESTS RESULT OUT OF RANGE REFERENCE UNITS LAB L503.0105 211-911 pg/mL Normal Vitamin B12 304 Performed By: #### L100.0100, L503.0105, L500.4050, L500.4100, L501.5200, L501.9520, L506.0400 #### [facility] [address] [place], [address] COMPREHENSIVE METABOLIC Collected: 07/05/2018 Status: F Source: [facility] 2:54 PM [facility] REPOSITORY TYPE CODE TESTS RESULT OUT OF RANGE REFERENCE UNITS LAB L501.0100 74-106 mg/dL Normal GLU 82 Result Comment: Please note revised GLUCOSE reference range effective 2017. LAB L501.1000 7-18 mg/dL Normal BUN 9 LAB L501.1100 0.70-1.30 mg/dL Normal CREAT,SERUM 1.05 Result Comment: The validity of the calculated GFR AND GFRAA in patients over 70 years has not been determined. Clinical correlation is essential. LAB L501.1110 >60 mL/min Normal EST GFR 80 Result Comment: Non- GFR Calc LAB L501.1115 >60 mL/min Normal EST GFR - AA 97 Result Comment: GFR Calc LAB L501.1300 10-20 RATIO Low BUN/CRE 8.6 LAB L501.1500 6.4-8.2 g/dL Normal T PROT 7.2 LAB L501.1800 3.2-5.0 g/dL Normal ALB 4.0 LAB L501.1950 2.2-4.2 g/dL Normal GLOB 3.2 LAB L501.2000 0.9-2.4 RATIO Normal A/G 1.2 LAB L501.2200 8.5-10.1 mg/dL Low CA 8.4 LAB L501.4100 15-37 U/L Normal AST 33 LAB L501.4305 45-117 U/L Normal ALK P 65 LAB L501.4405 16-61 U/L Normal ALT 36 LAB L501.4600 0.20-1.00 mg/dL Normal T BILI 0.40 LAB L501.5300 136-145 mmol/L Normal NA 142 LAB L501.5600 3.5-5.1 mmol/L Low K 3.2 LAB L501.5900 98-107 mmol/L Normal CL 105 LAB L501.6100 21.0-32.0 mmol/L Normal CO2 27.0 LAB L501.6200 5-15 Normal GAP 10 Performed By: #### L100.0100, L503.0105, L500.4050, L500.4100, L501.5200, L501.9520, L506.0400 #### [facility] [address] [place], [address] LIPID PROFILE Collected: 07/05/2018 Status: F Source: [place] 2:54 PM [facility] REPOSITORY TYPE CODE TESTS RESULT OUT OF RANGE REFERENCE UNITS LAB L501.4900 200 mg/dL High CHOL 248 Result Comment: <200 mg/dL Desirable 200-240 mg/dL Borderline >240 mg/dL High Risk LAB L501.5000 mg/dL High TRIG 544 Result Comment: The drugs N-Acetylcysteine and Metamizole may falsely depress this assay. TRIGLYCERIDE IS GREATER THAN 400 mg/dL. LDL RESULT IS INVALID AND WILL NOT BE REPORTED. Serum Triglycerides Reference Interval Normal <150 mg/dL Borderline high 150 - 199 mg/dL High 200 - 499 mg/dL Very High > or = 500 mg/dL LAB L501.6400 mg/dL Normal HDL 57 Result Comment: The drugs N-Acetylcysteine and Metamizole may falsely depress this assay. Reference Range HDL <40 mg/dL Low HDL Cholesterol HDL >or= 60 mg/dL High HDL Cholesterol LAB L501.6500 0-130 mg/dL Test Normal not performed LDL LAB L501.6600 5-40 mg/dL Test Normal not performed VLDL Performed By: #### L100.0100, L503.0105, L500.4050, L500.4100, L501.5200, L501.9520, L506.0400 #### [facility] [address] [place], [place], [address] MAGNESIUM Collected: 07/05/2018 Status: F Source: [place] 2:54 PM [facility] REPOSITORY TYPE CODE TESTS RESULT OUT OF RANGE REFERENCE UNITS LAB L501.5200 1.6-2.6 mg/dL Low MG 1.1 Performed By: #### L100.0100, L503.0105, L500.4050, L500.4100, L501.5200, L501.9520, L506.0400 #### [facility] [address] [place], [place], [address] THYROID STIM HORMONE Collected: 07/05/2018 Status: F Source: [place] ([facility]) 2:54 PM [facility] REPOSITORY TYPE CODE TESTS RESULT OUT OF RANGE REFERENCE UNITS LAB L501.9520 0.358-3.74 uIU/mL Normal TSH 1.65 Performed By: #### L100.0100, L503.0105, L500.4050, L500.4100, L501.5200, L501.9520, L506.0400 #### [facility] [address] [place], [address] T4 FREE DIRECT Collected: 07/05/2018 Status: F Source: [place] 2:54 PM [facility] REPOSITORY TYPE CODE TESTS RESULT OUT OF RANGE REFERENCE UNITS LAB L506.0400 0.76-1.46 ng/dL Normal T4 FREE 0.93 DIRECT Performed By: #### L100.0100, L503.0105, L500.4050, L500.4100, L501.5200, L501.9520, L506.0400 #### [facility] [address] [place], [address] SURGERY VISIT REPORT Observed: 06/16/2018 Status: F Source: [place] 10:16 AM [facility] REPOSITORY [facility] [address] [place] [address] OFFICE VISIT Date of Service: 06/16/18 MR#: [id number] Acct: [id number] Name: HANSEL GAMEZ Jr. Rep #: [id number] : 1970 Provider: Karine Kirby PA-C Age/Sex: 47/M Location: [facility] Status: Signed Intake Intake Visit Reasons: FU Perianal Abscess Allergies Penicillins Allergy (Verified 06/02/18 10:04) Unknown fluoxetine [From Prozac] Adverse Reaction (Verified 06/02/18 10:04) Other Medications Omeprazole [Prilosec] 40 mg PO DAILY 07/04/15 [History Confirmed 06/02/18] Lisinopril/Hydrochlorothiazide [Zestoretic 20/12.5 Tablet] 1 tab PO DAILY 06/17/17 [History Confirmed 06/02/18] Meloxicam [Mobic] 15 mg PO PRN PRN 06/17/17 [History Confirmed 06/02/18] Finasteride [Proscar] 5 mg PO DAILY #30 tab 06/20/17 [Rx Confirmed 06/02/18] Loperamide [Imodium] 2 mg PO Q4H PRN PRN 06/29/17 [History Confirmed 06/02/18] Magnesium Oxide [Mag-Ox 400] 400 mg PO BIDCM 06/29/17 [History Confirmed 06/02/18] Tamsulosin HCl [Flomax] 0.4 mg PO DAILY@1730 06/29/17 [History Confirmed 06/02/18] vitamin B12 500 mcg-folic acid 400 mcg tablet 1 tab PO QDAY 01/04/18 [History Confirmed 06/02/18] Opium/Belladonna Alkaloids [B AND O] 60 mg RECTAL DAILY #3 suppos. 05/29/18 [Rx Confirmed 06/02/18] Metronidazole [Flagyl] 500 mg PO Q8H #30 tab 06/01/18 [Rx Confirmed 06/02/18] Smz/Tmp Ds [Bactrim Ds] 1 tab PO BID #20 tab 06/01/18 [Rx Confirmed 06/02/18] ABD pad #14 ea 06/02/18 [Rx Confirmed 06/02/18] gauze #14 ea 06/02/18 [Rx Confirmed 06/02/18] Subjective Details: Patient is a 47 y/o male I am following for a perianal abscess. Dr. Yanes performed an incision and drainage of a perianal abscess on 05/30/18. Patient tolerated the procedure well. Patient had a 2 day hospital stay. Microbiology demonstrated proteus mirabilis remaining culture pending. Patient notes the discomfort is greatly improved. He notes minimal amount of drainage. He denies fever. He has been taking antibiotics. Patient returns for a follow-up visit. Patient notes very minimal amount of drainage. He denies pain/discomfort. He has completed antibiotics. Objective Details: Anus- small 1 cm opening with superficial depth. minimal amount of clear yellowish drianage. Dry gauze applied. Assessment AND Plan Problems 1. Perianal abscess K61.0 Plan - Continue to wear a dressing until no drainage is being seen - Continue sitz bathes every other day - Follow-up in 1 month Coding Level of Care Code Global Post Op Diagnoses Perianal abscess K61.0 06/16/18 1016 <Electronically signed by Karine Kirby PA-C> Date Karine Kirby PA-C Cosigner Signature: Date (if applicable) CC: DISCHARGE SUMMARY Observed: 06/02/2018 Status: F Source: [place] 4:23 PM [facility] REPOSITORY Medical Records Department [address] [place] [address] Discharge Summary 06/01/18 1358 MR#: [id number] Acct: [id number] Name: HANSEL GAMEZ Jr. Rep #: [id number] : 1970 47 From: Karine Kirby PA-C PCP: Zia Osman MD Status: DIS IN Y [place] [facility] Discharge Date and Diagnosis Date of Admission: 05/30/18 Date of Discharge: 06/01/18 - Primary Discharge Diagnosis Perianal abscess - Secondary Discharge Diagnosis Chronic Problems (Last Updated 01/04/18 @ 13:48 by Morelia Guidry) HTN (hypertension) (Chronic) GERD (gastroesophageal reflux disease) (Chronic) Smoker (Chronic) Depression (Chronic) Hospital Course and Treatment Operations: - - Incision and drainage of left perianal abscess Summary of Care Provided: The patient is a 47 year old M who presented with a 1 week history of rectal pain. Dr. Yanes performed an incision and drainage of left perianal abscess on 05/30/18. Patient tolerated the procedure well. Patient had an uneventful hospital stay. Culture demonstrated proteus mirabilis, E coli, and enterococcus faecalis. Upon discharge, patient's pain was better controlled with oral pain medication. He was discharged to home on Bactrim and Flagyl. Patient was tolerating a diet well. He was having bowel movements and urinating well. - Physical Exam General: Alert, Oriented x3, Cooperative HEENT: Atraumatic, PERRLA, EOMI, Normocephalic Lungs: Clear to auscultation, Normal air movement Cardiovascular: Regular rate, No murmurs Abdomen: Bowel Sounds Present, Soft, Non Tender, - - Rectum- packing intact with ABD and gauze dry dressing intact Psych/Mental Status: Normal Affect, Appropriate Vital Signs Temp Pulse Resp BP Pulse Ox 98.0 F 87 18 152/91 H 96 06/01/18 13:31 06/01/18 13:31 06/01/18 13:31 06/01/18 13:31 06/01/18 13:31 Oxygen Flow Rate (L/min) 2 Oxygen Delivery Method Room Air Weight: 239 lb 15.994 oz Body Mass Index (BMI) 35.4 Finger Stick Blood Glucose 106 Intake and Output for Last 24 Hours Intake Total 800 / 800 5141 / 5141 522 / 522 Output Total 2425 / 2425 500 / 500 Balance 800 / 800 2716 / 2716 Microbiology Past 72 Hours 05/30/18 16:26 Gram Stain - Final Rectal Abscess Wound Culture - Preliminary Discharge Diet: Light diet - advance as tolerated Discharge Activity: May not drive while taking narcotic pain medications. Call your doctor if your incision/area has: Continuous Slow Oozing, Sudden Increased Bleeding, Increased Pain/ Swelling, Increased Redness, Foul Smelling Discharge, Swelling at the incision site Call your doctor if you observe: Fever of 101 or Higher, Numbness or Tingling Home Medications: Medications to take at Discharge Omeprazole [Prilosec] 40 mg PO DAILY 07/04/15 Lisinopril/Hydrochlorothiazide [Zestoretic 28/07.5 Tablet] 1 tab PO DAILY 06/17/17 Meloxicam [Mobic] 15 mg PO PRN PRN 06/17/17 Finasteride [Proscar] 5 mg PO DAILY #30 tab 06/20/17 Loperamide [Imodium] 2 mg PO Q4H PRN PRN 06/29/17 Magnesium Oxide [Mag-Ox 400] 400 mg PO BIDCM 06/29/17 Tamsulosin HCl [Flomax] 0.4 mg PO DAILY@1730 06/29/17 vitamin B12 500 mcg-folic acid 400 mcg tablet 1 tab PO QDAY 01/04/18 Opium/Belladonna Alkaloids [B AND O] 60 mg RECTAL DAILY #3 suppos. 05/29/18 Hydrocodone Bitart/Apap 5-325 [[place] 5/325] 1 tab PO Q6H PRN PRN 6 Days #20 tab 06/01/18 Metronidazole [Flagyl] 500 mg PO Q8H #30 tab 06/01/18 Smz/Tmp Ds [Bactrim Ds] 1 tab PO BID #20 tab 06/01/18 ABD pad #14 ea 06/02/18 gauze #14 ea 06/02/18 Following Prescrptions Were Given to Patient: Hydrocodone Bitart/Apap 5-325 [[place] 5/325] 1 tab PO Q6H PRN PRN 6 Days #20 tab PRN Reason: Mild-Moderate (pain scale 1-5) Metronidazole [Flagyl] 500 mg PO Q8H #30 tab Smz/Tmp Ds [Bactrim Ds] 1 tab PO BID #20 tab Primary Care Physician: Zia Osman MD [Primary Care Provider] - Please Follow Up With: Chuck Yanes MD When: at 10 AM Additional Instructions: May not drink alcohol while taking Bactrim. This can cause nausea, vomiting if mixed with alcohol. Disposition: Home Minutes spent on discharge:: 20 Patient Condition:: Good Medical Necessity - Tobacco Use Smoking Status: Current every day smoker Meaningful Use Info Meaningful Use Diagnoses (Choose all that apply): None applicable Code Visit Inpatient E AND M: 70405 Disch Hosp 06/02/18 1623 <Electronically signed by Karine Kirby PA-C> Date Karine Kirby PA-C Cosigner Signature (if applicable): Date CC: Karine Kirby PA-C; Zia Osman MD Signed SURGERY VISIT REPORT Observed: 06/02/2018 Status: F Source: [place] 3:47 PM [facility] REPOSITORY [facility] [address] [place] [address] [address] [place] [address] OFFICE VISIT Date of Service: 06/02/18 MR#: [id number] Acct: [id number] Name: HANSEL GAMEZ Jr. 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 Transforming Required: No Is patient in pain?: Yes (rectum) Allergies Penicillins Allergy (Verified 06/02/18 10:04) Unknown fluoxetine [From Prozac] Adverse Reaction (Verified 06/02/18 10:04) Other Medications Omeprazole [Prilosec] 40 mg PO DAILY 07/04/15 [History Confirmed 06/02/18] Lisinopril/Hydrochlorothiazide [Zestoretic 20/12.5 Tablet] 1 tab PO DAILY 06/17/17 [History Confirmed 06/02/18] Meloxicam [Mobic] 15 mg PO PRN PRN 06/17/17 [History Confirmed 06/02/18] Finasteride [Proscar] 5 mg PO DAILY #30 tab 06/20/17 [Rx Confirmed 06/02/18] Loperamide [Imodium] 2 mg PO Q4H PRN PRN 06/29/17 [History Confirmed 06/02/18] Magnesium Oxide [Mag-Ox 400] 400 mg PO BIDCM 06/29/17 [History Confirmed 06/02/18] Tamsulosin HCl [Flomax] 0.4 mg PO DAILY@1730 06/29/17 [History Confirmed 06/02/18] vitamin B12 500 mcg-folic acid 400 mcg tablet 1 tab PO QDAY 01/04/18 [History Confirmed 06/02/18] Opium/Belladonna Alkaloids [B AND O] 60 mg RECTAL DAILY #3 suppos. 05/29/18 [Rx Confirmed 06/02/18] Hydrocodone Bitart/Apap 5-325 [[place] 5/325] 1 tab PO Q6H PRN PRN 6 Days #20 tab 06/01/18 [Rx Confirmed 06/02/18] Metronidazole [Flagyl] 500 mg PO Q8H #30 tab 06/01/18 [Rx Confirmed 06/02/18] Smz/Tmp Ds [Bactrim Ds] 1 tab PO BID #20 tab 06/01/18 [Rx Confirmed 06/02/18] ABD pad #14 ea 06/02/18 [Rx Confirmed 06/02/18] gauze #14 ea 06/02/18 [Rx Confirmed 06/02/18] Subjective Details: Patient is a 47 y/o male I am following for a perianal abscess. Dr. Yanes performed an incision and drainage of a perianal abscess on 05/30/18. Patient tolerated the procedure well. Patient had a 2 day hospital stay. Microbiology demonstrated proteus mirabilis remaining culture pending. Patient notes the discomfort is greatly improved. He notes minimal amount of drainage. He denies fever. He has been taking antibiotics. Objective Details: Left perianal region- remaining packing was pulled. No erythema noted. Mild amount of purulent material noted on the packing. Open wound was redressed with gauze and ABD pad. Assessment AND Plan Problems 1. Perianal abscess K61.0 Plan - recommend sitz bathes TID - Change dressing TID or more often if needed - Continue antibiotics - Follow-up in 2 weeks or sooner if needed Medications New: Coding Level of Care Code Global Post Op Diagnoses Perianal abscess K61.0 06/02/18 1547 <Electronically signed by Karine Kirby PA-C> Date Karine Kirby PA-C Cosigner Signature: Date (if applicable) CC: Zia Osman MD DISCHARGE INSTRUCTION Observed: 06/01/2018 Status: F Source: [place] 1:58 PM [facility] REPOSITORY Medical Records Department [address] [place] [address] Instructions for Home/Discharge Instructions 06/01/18 1333 MR#: [id number] Acct: [id number] Name: GAMEZHANSEL Jr. Rep #: [id number] : 1970 47 From: Karine Kirby PA-C PCP: Zia Osman MD Status: ADM IN ADDENDUM by Karine Kirby PA-C on 06/01/18 at [address] until tomorrow's office visit. Follow- up tomorrow at 10 AM in the office with Karine for packing removal. 06/01/18 1358 Date Karine Kirby PA-C cc: Zia Osman MD * Signed Discharge Diet: Light diet - advance as tolerated Discharge Activity: May not drive while taking narcotic pain medications. Lifting Restrictions: 10 pounds Call your doctor if your incision/area has: Continuous Slow Oozing, Sudden Increased Bleeding, Increased Pain/ Swelling, Increased Redness, Foul Smelling Discharge, Swelling at the incision site Call your doctor if you observe: Fever of 101 or Higher, Numbness or Tingling Additional Instructions: May not drink alcohol while taking Bactrim. This can cause nausea, vomiting if mixed with alcohol. Allergies/Adverse Reactions: Allergies Penicillins Allergy (Verified 05/30/18 15:03) Unknown fluoxetine [From Prozac] Adverse Reaction (Verified 05/31/18 21:22) Other Medications to take at Discharge Omeprazole [Prilosec] 40 mg PO DAILY 07/04/15 Lisinopril/Hydrochlorothiazide [Zestoretic /12.5 Tablet] 1 tab PO DAILY 06/17/17 Meloxicam [Mobic] 15 mg PO PRN PRN 06/17/17 Finasteride [Proscar] 5 mg PO DAILY #30 tab 06/20/17 Loperamide [Imodium] 2 mg PO Q4H PRN PRN 06/29/17 Magnesium Oxide [Mag-Ox 400] 400 mg PO BIDCM 06/29/17 Tamsulosin HCl [Flomax] 0.4 mg PO DAILY@1730 06/29/17 vitamin B12 500 mcg-folic acid 400 mcg tablet 1 tab PO QDAY 01/04/18 Opium/Belladonna Alkaloids [B AND O] 60 mg RECTAL DAILY #3 suppos. 05/29/18 Hydrocodone Bitart/Apap 5-325 [[place]mont 5/325] 1 tablet PO Q6H PRN PRN 6 Days #20 tablet 06/01/18 Metronidazole [Flagyl] 500 mg PO Q8H #30 tablet 06/01/18 Smz/Tmp Ds [Bactrim Ds] 1 tablet PO BID #20 tablet 06/01/18 The following prescriptions were given: Hydrocodone Bitart/Apap 5-325 [[place] 5/325] 1 tablet PO Q6H PRN PRN 6 Days #20 tablet PRN Reason: Mild-Moderate (pain scale 1-5) Metronidazole [Flagyl] 500 mg PO Q8H #30 tablet Smz/Tmp Ds [Bactrim Ds] 1 tablet PO BID #20 tablet Primary Care Physician: Zia Osman MD [Primary Care Provider] - Test Results: Test results from this visit will be discussed in further detail at your follow-up appointment, if applicable. Please Follow Up With: Chuck Yanes MD When: at 10 AM Proposed Discharge Date: 06/01/18 06/01/18 1335 <Electronically signed by Karine Kirby PA-C> Date Karine Kirby PA-C CC: Zia Osman MD OPERATIVE REPORT Observed: 05/31/2018 Status: F Source: [place] 5:52 AM [facility] Medical Records Department [address] [place] [id number] Operative Report 05/30/18 1634 MR#: [id number] Acct: [id number] Name: HANSEL GAMEZ Rep #: [id number] : 1970 47 From: Chuck Yanes MD PCP: Zia Osman MD Status: ADM IN [place] [facility] [id number] Problem List (1) Perianal abscess Status: Acute Report of Operation Date of Procedure: 05/30/18 Pre-Operative Diagnosis: Left perianal abscess Post-Operative Diagnosis: Left perirectal abscess Surgery/Procedure Performed:: Incision and drainage of left perirectal abscess Description of Surgical Findings:: Timeout informed consent was obtained. 47-year-old gentleman was taken out from. He underwent general endotracheal intubation anesthesia. He was placed prone jackknife on the table. The perianal area was prepped with Betadine. He received Invanz 1 g. There was fluctuance left and anteriorly. I used a 15 blade to incise this circumferential with the anus copious amount of pus emanated. Specimen was obtained for Gram stain culture and sensitivity. Copious amounts of purulence was obtained. Digitally I broke up loculations and extended anteriorly toward the base of the penis. I bluntly broke up all of the loculations identifying that this was for more than a perianal abscess and was consistent with a perirectal abscess. I then irrigated the cavity. I placed 1/2 inch Nu Gauze wick to the depths of the abscess with some slight packing. Sterile gauze dressings applied. Cover dressings applied. Sponge and instrument and needle count correct. Specimen none. Cultures obtained. Drains half-inch Nu Gauze. Blood loss minimal. He was taken to the recovery area in satisfactory condition without apparent complication Chuck Yanes M.D., F.A.C.S. Type of Anesthesia:: General Anesthesiologist: Jovana Franco 05/31/18 0552 <Electronically signed by Chuck Yanes MD> Date Chuck Yanes MD CC: Zia Osman MD; Chuck Yanes MD Signed BASIC METABOLIC Collected: 05/31/2018 Status: F Source: [place] PROFILE (BMP) 5:20 AM [facility] REPOSITORY TYPE CODE TESTS RESULT OUT OF RANGE REFERENCE UNITS LAB L501.0100 74-106 mg/dL Normal GLU 98 Result Comment: Please note revised GLUCOSE reference range effective 2017. LAB L501.1000 7-18 mg/dL Normal BUN 14 LAB L501.1100 0.70-1.30 mg/dL Normal CREAT,SERUM 0.96 Result Comment: The validity of the calculated GFR AND GFRAA in patients over 70 years has not been determined. Clinical correlation is essential. LAB L501.1110 >60 mL/min Normal EST GFR 88 Result Comment: Non- GFR Calc LAB L501.1115 >60 mL/min Normal EST GFR - AA 107 Result Comment: GFR Calc LAB L501.1255 ml/min Normal Estimated CRCL 94.10 LAB L501.1300 10-20 RATIO Normal BUN/CRE 14.5 LAB L501.2200 8.5-10 mg/dL Normal .1 CA 9.1 LAB L501.5300 136-14 mmol/L Low 5 NA 134 LAB L501.5600 3.5-5. mmol/L Normal 1 K 3.5 LAB L501.5900 98-107 mmol/L Normal CL 98 LAB L501.6100 21.0-3 mmol/L Normal 2.0 CO2 26.0 LAB L501.6200 5-15 Normal GAP 10 Performed By: #### L500.2500 #### [facility] [place], [address] CBC W/DIFF, AUTOMATED Collected: 05/31/2018 Status: F Source: [place] 5:20 AM [facility] REPOSITORY TYPE CODE TESTS RESULT OUT OF RANGE REFERENCE UNITS LAB L100.1000 4.4-11.0 K/mm3 High WBC 12.4 LAB L100.1200 4.6-6.2 M/mm3 Low RBC 3.72 LAB L100.1300 13.0-16.5 g/dl Low HGB 11.1 LAB L100.1400 40-54 % Low HCT 34.5 LAB L100.1500 80-94 fL Normal MCV 92.7 LAB L100.1600 27.0-32.0 pg Normal MCH 29.8 LAB L100.1700 32-36 g/gl Normal MCHC 32.2 LAB L100.1810 11.6-14.6 % Normal RDW CV 14.0 LAB L100.1820 35.1-43.9 fl High RDW SD 46.3 LAB L100.1900 150-450 K/mm3 High PLT 575 LAB L100.2000 6.2-12.0 fl Normal MPV 8.1 LAB L100.2100 47-70 % High NEUT% 76.2 LAB L100.2200 19-41 % Low LY% 10.4 LAB L100.2300 0-10 % High MONO% 11.7 LAB L100.2400 0-5 % Normal EO% 1.0 LAB L100.2500 0-1 % Normal BASO% 0.3 LAB L100.2550 0.0-0.9 % Normal IM GRAN % 0.400 Result Comment: IG% - Immature Granulocytes (promyelocytes, myelocytes and metamyelocytes) > 1% indicates that a LEFT SHIFT is Present. LAB L100.2620 2.0-7.7 X10 3/uL High Absolute Neut 9.4 LAB L100.2720 0.83-4.51 X10 3/ul Normal Absolute Lymph 1.29 Performed By: #### L100.0100 #### [facility] [address] [place], [address] Observed: 05/30/2018 Status: F Source: [place] CULTURE, DEEP WOUND 4:26 PM [facility] REPOSITORY Order Date: 03/10/17 Comments: andrew-rectal abscess Gram Stain Gram Stain 4+ White Blood Cells 1+ Gram negative rods Wound Culture ORGANISM 1: Proteus mirabilis Amount Growth 3+ ORGANISM 2: Escherichia coli Amount Growth 2+ ORGANISM 3: Enterococcus faecalis Amount Growth 1+ Proteus mirabilis: REACTION Amoxacillin/Clavulanic Acid $ <=2 S Ampicillin $ <=2 S Ampicillin/Sulbactam $ <=2 S Cefazolin $ <=4 S Cefepime $ <=1 S Ceftriaxone $ <=1 S Ciprofloxacin $ <=0.25 S Ertapenim $$$ <=0.5 S Gentamicin $ <=1 S Levofloxacin $ <=0.12 S Piperacillin/Tazobactam $$ <=4 S Tobramycin $ <=1 S Trimethoprim/Sulfametho $ <=20 S (NF) indicates non-formulary drug at [facility]. Approval by Infectious Disease Specialist required before non-formulary drugs may be ordered and/or dispensed. Escherichia coli: REACTION Amoxacillin/Clavulanic Acid $ 4 S Ampicillin $ 8 S Ampicillin/Sulbactam $ <=2 S Cefazolin $ <=4 S Cefepime $ <=1 S Ceftriaxone $ <=1 S Ciprofloxacin $ <=0.25 S ESBL - Ertapenim $$$ <=0.5 S Gentamicin $ <=1 S Imipenem *NF <=0.25 S Levofloxacin $ <=0.12 S Piperacillin/Tazobactam $$ <=4 S Tobramycin $ <=1 S Trimethoprim/Sulfametho $ <=20 S (NF) indicates non-formulary drug at [facility]. Approval by Infectious Disease Specialist required before non-formulary drugs may be ordered and/or dispensed. Enterococcus faecalis: REACTION Ampicillin $ <=2 S Benzylpenicillin NF 4 S Gentamicin SYN-S S Linezolid $$$$ 2 S Tigecycline $$$$ <=0.12 S Streptomycin $ SYN-S S Vancomycin $ 2 S (NF) indicates non-formulary drug at [facility]. Approval by Infectious Disease Specialist required before non-formulary drugs may be ordered and/or dispensed. * CLSI guidelines does not recommend testing of cephalosporins. This interpretation is deduced from Beta-lactam/penicillin results. Cult, Anaerobic Studies Have Confirmed That B. Fragilis Group are Routinely Susceptible to: Metronidazole, Piperacillin/Tazobactam, Tigecycline, Ertapenem, Imipenem, Meropenem and variable in resistance to: Clindamycin, Moxifloxacin, Cefoxitin and Ampicillin/Sulbactam. ORGANISM 1: Bacteroides fragilis Performed By: #### M100.1500 #### [facility] [address] [place], [address] SURGERY VISIT REPORT Observed: 05/30/2018 Status: F Source: [place] 3:07 PM [facility] REPOSITORY [facility] 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 Is patient in pain?: Yes Pain scale (1-10): 10 Allergies Penicillins Allergy (Verified 05/30/18 15:03) Unknown Medications Omeprazole [Prilosec] 40 mg PO DAILY 07/04/15 [History Confirmed 05/30/18] Lisinopril/Hydrochlorothiazide [Zestoretic 20/12.5 Tablet] 1 tab PO DAILY 06/17/17 [History Confirmed 05/30/18] Meloxicam [Mobic] 15 mg PO PRN PRN 06/17/17 [History Confirmed 05/30/18] Finasteride [Proscar] 5 mg PO DAILY #30 tab 06/20/17 [Rx Confirmed 05/30/18] Loperamide [Imodium] 2 mg PO Q4H PRN PRN 06/29/17 [History Confirmed 05/30/18] Magnesium Oxide [Mag-Ox 400] 400 mg PO BIDCM 06/29/17 [History Confirmed 05/30/18] Tamsulosin HCl [Flomax] 0.4 mg PO DAILY@1730 06/29/17 [History Confirmed 05/30/18] vitamin B12 500 mcg-folic acid 400 mcg tablet 1 tab PO QDAY 01/04/18 [History Confirmed 05/30/18] Opium/Belladonna Alkaloids [B AND O] 60 mg RECTAL DAILY #3 suppos. 05/29/18 [Rx Confirmed 05/30/18] Oxycodone HCl/Acetaminophen [Percocet 5/325] 1 tab PO Q6H PRN PRN 3 Days #12 tab 05/29/18 [Rx Confirmed 05/30/18] PFSH Medical History Perianal abscess (Acute) Urinary retention due to benign prostatic hyperplasia (Acute) Acute encephalopathy (Acute) HTN (hypertension) (Chronic) GERD (gastroesophageal reflux disease) (Chronic) Smoker (Chronic) Serotonin syndrome (Resolved) Depression (Chronic) Alcohol abuse, daily use (Acute) Serotonin syndrome (Acute) Surgical History S/P right knee arthroscopy (Acute) S/P tonsillectomy (Acute) Family History Sister Diabetes Heart disease Mother CAD (coronary artery disease) Social History Smoking Status: Current every day smoker HPI HPI HPI: HANSEL GAMEZ, is a 47 M who presents to the office today for severe left perianal pain. The patient's been ill for 10 days. He was seen in the emergency room last night. Etiology for the pain could not be determined. White count was slightly elevated at 12,000. Plain abdominal films were obtained unremarkable. The patient was scheduled to see me in 2 days time. We contacted the patient because we had been notified that he was quite uncomfortable. We asked him to appear to the office sooner. He presents with his mother. He finds it very painful to walk. He cannot urinate. He cannot take liquids. He cannot defecate. He does not know whether he has had fever. He has had severe pain. The IV morphine provided in the emergency room provided minimal relief. ROS General General: No weight change, appetite, fatigue, colon cancer, breast cancer or weakness HEENT HEENT: No difficulty swallowing, eye injury, eye surgery, swollen glands or hoarseness Endo Endocrine: No thyroid disease, diabetes mellitus, thyroid cancer, Hair loss, heat intolerance or cold intolerance Musc Musculoskeletal: Yes back problems, arthritis and rheumatoid arthritis; no gout or joint pain Cardio Cardiovascular: Yes high blood pressure; no pacemaker, heart disease, atrial fibrillation, heart attack, heart stent, palpitations, shortness of breat with exertion, chest pain or murmur Psych Psychiatric: Yes depression and anxiety; no hearing voices Resp Respiratory: No shortness of breath, No sleep apnea, Yes cough, No COPD, No asthma, No emphysema, No wheezing Gastro Gastrointestinal: No abdominal pain, No nausea or vomiting, Yes diarrhea, No constipation, No blood in stool, Yes acid reflux, Yes hemorrhoids, No ulcers, No gallbladder problem, No black,tarry stools Shawn Hematologic: No blood thinners, No blood disorders, No bleeding, No anemia, No blood clots Neuro Neurologic: No weakness Exam Const General: cooperative, acute distress Nutritional Appearance: overweight Orientation: alert, awake, oriented x3 Other: Very heavy odor of tobacco HENMT Head: normal to inspection Chest Other: Increased anterior posterior diameter. Resp Auscultation: clear to auscultation bilaterally Cardio Rate: regular rate Rhythm: regular rhythm Heart Sounds: no murmurs GI Palpation: soft, no hepatosplenomegaly Other: Attempt to inspect the andrew-anal area caused extreme pain. On gentle palpation I demonstrated a fluctuant fullness to the left of the anus. I could not obtain a good view due to the patient's extreme discomfort Skin General: no rashes or lesions noted Extrem General: no calf tenderness Psych Affect: other (Patient is very upset and distress) Assessment AND Plan Problems 1. Perianal abscess K61.0 Plan Patient would appear to have a left perianal abscess. He is in extreme distress. I am recommending urgent exploration under anesthesia with planned incision and drainage of this abscess. The patient is aware that he will require hospitalization. Allergies include penicillin. He has had an opportunity to ask and have questions answered. He claims he is not able to walk over to the hospital. We will provide wheel chair transportation and try to expedite the incision and drainage. cc: Dr Zia Yanes M.D., F.A.C.S. Coding Level of Care Code Attention Ameena Diagnoses Perianal abscess K61.0 05/30/18 1507 <Electronically signed by Chuck Yanes MD> Date Chuck Yanes MD Cosigner Signature: Date (if applicable) CC: Zia Osman MD EMERGENCY DEPARTMENT Observed: 05/29/2018 Status: F Source: [place] SUMMARY 3:19 PM [facility] REPOSITORY Medical Records Department [address] [place] [address] Emergency Department Summary 05/29/18 1149 MR#: [id number] Acct: [id number] Name: HANSEL GAMEZ Rep #: [id number] : 1970 47 From: Altaf Harkins DO PCP: Zia Osman MD Status: REG ER - ER Visit Summary Date of Service: 05/29/18 Chief Complaint: Rectal pain History of Present Illness: The patient is a 47 M who presents with worsening rectal pain for the past week. Patient states he has a anal fissure and is scheduled to have surgery on Wednesday by Dr. Yanes. Patient states the pain became unbearable today. Patient states the pain is worse with sitting and walking. She also states his pain is worse with any bowel movement. Patient denies any rectal bleeding. Patient denies any abdominal pain. Patient admits to decreased appetite but denies any nausea or vomiting. Patient denies any fevers or chills. Physical Examination: Vital signs are stable except for mild tachycardia of 123. Patient is afebrile. Patient is in no acute distress. Oral mucosa is pink and moist. Neck is supple. Trachea is midline. There is no JVD noted. Heart was regular and tachycardic. Lungs are clear and equal bilateral. There is good respiratory effort noted. Abdomen is soft. Bowel sounds are normal. There is no tenderness noted. Rectal exam showed some tenderness but there is no active bleeding noted. Patient was unable to tolerate any digital rectal exam. I do not see any external hemorrhoids. Cranial nerves II through XII are intact. There are no focal motor or sensory deficits noted. The remaining physical exam is within normal limits. Test Results: CBC showed a mild leukocytosis of 12.6. Creatinine was slightly elevated at 1.34. Urinalysis showed an occult blood of 10 but there were 0 red blood cells. Acute abdominal x-rays were obtained. There is no evidence of any perforation or obstruction. Emergency Department Course and Treatment: Patient was given injections of morphine and Dilaudid here. Patient states she still has severe rectal pain. Case was discussed with Dr. Yanes. He is going to see the patient in consultation if the hospitalist is willing to admit the patient. Case was discussed with the hospitalist. He feels the patient can go home and follow-up as an outpatient. Patient was given prescription for Percocet and B AND O suppositories. Patient understood and was agreeable with the plan. All questions were answered. Disposition: Discharged home Impression: Rectal pain This note was generated with [employer] dictation software. It may contain incorrect words, spelling, and punctuation that were not noted in review of the chart prior to signing ED Disposition - Plan for ED Patient: Disposition: Home or Assisted Living Chief Complaint: Other, Pain/Inj Diagnosis: Rectal pain Instructions: ED Fissure Anal Ch, ED Hemorrhoids Prescriptions: Oxycodone HCl/Acetaminophen [Percocet 5/325] 1 tab PO Q6H PRN PRN 3 Days #12 tab PRN Reason: Pain Opium/Belladonna Alkaloids [B AND O] 60 mg RECTAL DAILY #3 suppos. Referrals: Zia Osman MD [Primary Care Provider] - What to do if you have Problems For any increased pain, shortness of breath, bleeding, nausea or vomiting, chest pain, or any unexpected problems, contact your Primary Care Provider. Call [facility] ([phone]) or report to the closest Emergency Room. Call 911 if necessary. 05/29/18 1519 <Electronically signed by Altaf Harkins DO> Date Altaf Harkins DO Cosigner Signature (If Indicated): Date CC: Zia Osman MD URINALYSIS, COMPLETE Collected: 05/29/2018 Status: F Source: [place] 12:32 PM [facility] REPOSITORY Order Comment: How was Urine Obtained? CLEAN CATCH TYPE CODE TESTS RESULT OUT OF RANGE REFERENCE UNITS LAB L400.3000 Yellow COLOR Normal Yellow LAB L400.3050 Clear Normal CLARITY Clear LAB L400.3200 Normal mg/dl Normal GLUCOSE, UR Normal LAB L400.3300 Negative mg/dL Normal BILIRUBIN URINE Negative LAB L400.3400 Negative mg/dl Normal KETONE UR Negative LAB L400.3465 1.002-1.030 Normal SP.GR. DIPSTX 1.015 LAB L400.3550 5.0 - 8.0 pH UR Normal 5.0 LAB L400.3600 Negative mg/dl High PROT 15 DIPSTX LAB L400.3700 Normal mg/dl Normal UROBILI Normal LAB L400.3750 Negative Normal NITRITE UR Negative LAB L400.3780 Negative /ul High 10 OCCULT BLOOD-UR LAB L400.3800 Negative /ul LEUK Normal ESTERASE Negative LAB L400.4050 0-5 /hpf WBC 0 Normal SEEN LAB L400.4100 0-5 /hpf 0 Normal RBC-UA SEEN LAB L400.4150 0-5 /hpf SQUAM 0 Normal EPI SEEN LAB L400.4300 None Seen /hpf 0 Normal BACTERIA SEEN LAB L400.4350 <or=2+ /hpf 0 Normal MUCUS, URINE SEEN Performed By: #### L400.0001 #### [facility] [address] [place], [address] CBC W/DIFF, AUTOMATED Collected: 05/29/2018 Status: F Source: [place] 12:00 PM [facility] REPOSITORY TYPE CODE TESTS RESULT OUT OF RANGE REFERENCE UNITS LAB L100.1000 4.4-11.0 K/mm3 High WBC 12.6 LAB L100.1200 4.6-6.2 M/mm3 Low RBC 3.72 LAB L100.1300 13.0-16.5 g/dl Low HGB 11.0 LAB L100.1400 40-54 % Low HCT 34.4 LAB L100.1500 80-94 fL Normal MCV 92.5 LAB L100.1600 27.0-32.0 pg Normal MCH 29.6 LAB L100.1700 32-36 g/gl Normal MCHC 32.0 LAB L100.1810 11.6-14.6 % Normal RDW CV 14.1 LAB L100.1820 35.1-43.9 fl High RDW SD 46.0 LAB L100.1900 150-450 K/mm3 High PLT 580 LAB L100.2000 6.2-12.0 fl Normal MPV 8.7 LAB L100.2100 47-70 % High NEUT% 79.1 LAB L100.2200 19-41 % Low LY% 9.7 LAB L100.2300 0-10 % Normal MONO% 8.9 LAB L100.2400 0-5 % Normal EO% 1.7 LAB L100.2500 0-1 % Normal BASO% 0.3 LAB L100.2550 0.0-0.9 % Normal IM GRAN % 0.300 Result Comment: IG% - Immature Granulocytes (promyelocytes, myelocytes and metamyelocytes) > 1% indicates that a LEFT SHIFT is Present. LAB L100.2620 2.0-7.7 X10 3/uL High Absolute Neut 10.0 LAB L100.2720 0.83-4.51 X10 3/ul Normal Absolute Lymph 1.22 Performed By: #### L100.0100 #### [facility] [address] [place], [address] COMPREHENSIVE METABOLIC Collected: 05/29/2018 Status: F [facility] REPOSITORY TYPE CODE TESTS RESULT OUT OF RANGE REFERENCE UNITS LAB L501.0100 74-106 mg/dL Normal GLU 98 Result Comment: Please note revised GLUCOSE reference range effective 2017. LAB L501.1000 7-18 mg/dL Normal BUN 14 LAB L501.1100 0.70-1.30 mg/dL High CREAT,SERUM 1.34 Result Comment: The validity of the calculated GFR AND GFRAA in patients over 70 years has not been determined. Clinical correlation is essential. LAB L501.1110 >60 mL/min Normal EST GFR 60 Result Comment: Non- GFR Calc LAB L501.1115 >60 mL/min Normal EST GFR - AA 73 Result Comment: GFR Calc LAB L501.1255 ml/min Normal Estimated CRCL 67.42 LAB L501.1300 10-20 RATIO Normal BUN/CRE 10.4 LAB L501.1500 6.4-8. g/dL Normal 2 T PROT 7.9 LAB L501.1800 3.2-5. g/dL Normal 0 ALB 3.5 LAB L501.1950 2.2-4. g/dL High 2 GLOB 4.4 LAB L501.2000 0.9-2. RATIO Low 4 A/G 0.8 LAB L501.2200 8.5-10 mg/dL Normal .1 CA 9.0 LAB L501.4100 15-37 U/L Normal AST 16 LAB L501.4305 45-117 U/L Normal ALK P 117 LAB L501.4405 16-61 U/L Normal ALT 38 LAB L501.4600 0.20-1 mg/dL Normal .00 T BILI 0.40 LAB L501.5300 136-14 mmol/L Low 5 NA 134 LAB L501.5600 3.5-5. mmol/L Low 1 K 3.3 LAB L501.5900 98-107 mmol/L Normal CL 100 LAB L501.6100 21.0-3 mmol/L Normal 2.0 CO2 25.0 LAB L501.6200 5-15 Normal GAP 9 Performed By: #### L500.4050 #### [facility] [address] [facility] [place], [address] ACUTE ABDOMEN INC Observed: 05/29/2018 Status: F Source: [place] CHEST 11:48 AM [facility] REPOSITORY Imaging Services [address] [place] [address] Acute Abdomen Inc Chest MR#: [id number] Acct: [id number] Name: HANSEL GAMEZ Rep #: [id number] : 1970 M 47 From: Rupert Rodgers DO PCP: Zia Osman MD Status: REG ER Study: Acute Abdomen Inc Chest Date of Exam: 05/29/18 Exam# [id number] Ordering Dr: Altaf Harkins DO STUDY: X-RAY - ACUTE ABDOMINAL SERIES REASON FOR EXAM: Male, 47 years old. Abdominal pain TECHNIQUE: Single view of the chest. Supine, and erect view(s) of the abdomen were obtained. COMPARISON: None. FINDINGS: The lungs are clear and expanded. Normal size heart. Normal mediastinum and kwame. Normal visualized pulmonary arteries. Normal visualized aortic arch and descending thoracic aorta. Nonobstructive bowel gas pattern with scattered air-fluid levels. The soft tissue structures of the abdomen and pelvis are unremarkable. Normal visualized osseous structures. RAD/Acute Abdomen Inc Chest IMPRESSION: Clear lungs. Nonobstructive bowel gas pattern Electronically Signed: Rupert Rodgers DO at 13:19 EDT Tel , Service support , CC: Altaf Harkins DO; Zia Osman MD Work Environment Safety Inspector: Signed VITAMIN B12 Collected: 02/25/2018 Status: F Source: [place] 2:43 PM [facility] REPOSITORY Order Comment: Order Date: 02/25/18 Order Info: 2132-9 - B12 TYPE CODE TESTS RESULT OUT OF RANGE REFERENCE UNITS LAB L503.0105 211-911 pg/mL Normal Vitamin B12 309 Performed By: #### L503.0105, L500.4050, L500.4100, L501.9520, L501.9910, L506.0400 #### [facility] [address] [place], [address] COMPREHENSIVE METABOLIC Collected: 02/25/2018 Status: F Source: DES [place] 2:43 PM [facility] REPOSITORY Order Comment: Order Date: 02/25/18 Order Info: [id number] - CMP Order Info: [id number] - LIPID Order Info: 3016-3 - TSH Order Info: 2857-1 - PSA Order Info: 3024-7 - T4F Comments: B6 #[id number] PLASMA FROZEN PFL TYPE CODE TESTS RESULT OUT OF RANGE REFERENCE UNITS LAB L501.0100 74-106 mg/dL Normal GLU 98 Result Comment: Please note revised GLUCOSE reference range effective 2017. LAB L501.1000 7-18 mg/dL Normal BUN 16 LAB L501.1100 0.70-1.30 mg/dL High CREAT,SERUM 1.53 Result Comment: The validity of the calculated GFR AND GFRAA in patients over 70 years has not been determined. Clinical correlation is essential. LAB L501.1110 >60 mL/min Low EST GFR 52 Result Comment: Non- GFR Calc LAB L501.1115 >60 mL/min Normal EST GFR - AA 63 Result Comment: GFR Calc LAB L501.1300 10-20 RATIO Normal BUN/CRE 10.5 LAB L501.1500 6.4-8.2 g/dL T Normal PROT 7.9 LAB L501.1800 3.2-5.0 g/dL Normal ALB 4.1 LAB L501.1950 2.2-4.2 g/dL Normal GLOB 3.8 LAB L501.2000 0.9-2.4 RATIO Normal A/G 1.1 LAB L501.2200 8.5-10.1 mg/dL CA Normal 9.1 LAB L501.4100 15-37 U/L Normal AST 26 LAB L501.4305 45-117 U/L Normal ALK P 73 LAB L501.4405 16-61 U/L Normal ALT 31 LAB L501.4600 0.20-1.00 mg/dL T Normal BILI 0.40 LAB L501.5300 136-145 mmol/L NA Normal 139 LAB L501.5600 3.5-5.1 mmol/L K Normal 3.9 LAB L501.5900 98-107 mmol/L CL Normal 102 LAB L501.6100 21.0-32.0 mmol/L Normal CO2 28.0 LAB L501.6200 5-15 Normal GAP 9 Performed By: #### L503.0105, L500.4050, L500.4100, L501.9520, L501.9910, L506.0400 #### [facility] [address] [place], [place], [address] LIPID PROFILE Collected: 02/25/2018 Status: F Source: [place] 2:43 PM [facility] REPOSITORY Order Comment: Order Date: 02/25/18 Order Info: [id number] - CMP Order Info: [id number] - LIPID Order Info: 3016-3 - TSH Order Info: 2857-1 - PSA Order Info: 3024-7 - T4F Comments: B6 #[id number] PLASMA FROZEN PFL TYPE CODE TESTS RESULT OUT OF RANGE REFERENCE UNITS LAB L501.4900 200 mg/dL High CHOL 280 Result Comment: <200 mg/dL Desirable 200-240 mg/dL Borderline >240 mg/dL High Risk LAB L501.5000 mg/dL High TRIG 732 Result Comment: The drugs N-Acetylcysteine and Metamizole may falsely depress this assay. TRIGLYCERIDE IS GREATER THAN 400 mg/dL. LDL RESULT IS INVALID AND WILL NOT BE REPORTED. Serum Triglycerides Reference Interval Normal <150 mg/dL Borderline high 150 - 199 mg/dL High 200 - 499 mg/dL Very High > or = 500 mg/dL LAB L501.6400 mg/dL Normal HDL 55 Result Comment: The drugs N-Acetylcysteine and Metamizole may falsely depress this assay. Reference Range HDL <40 mg/dL Low HDL Cholesterol HDL >or= 60 mg/dL High HDL Cholesterol LAB L501.6500 0-130 mg/dL Test Normal not performed LDL LAB L501.6600 5-40 mg/dL Test Normal not performed VLDL Performed By: #### L503.0105, L500.4050, L500.4100, L501.9520, L501.9910, L506.0400 #### [facility] [address] [place], [address] THYROID STIM HORMONE Collected: 02/25/2018 Status: F Source: DES (TSH) 2:43 PM [facility] REPOSITORY Order Comment: Order Date: 02/25/18 Order Info: [id number] - CMP Order Info: 33076-2 - LIPID Order Info: 6-3 - TSH Order Info: 2857-1 - PSA Order Info: 3024-7 - T4F Comments: B6 #[id number] PLASMA FROZEN PFL TYPE CODE TESTS RESULT OUT OF RANGE REFERENCE UNITS LAB L501.9520 0.358-3.74 uIU/mL Normal TSH 1.70 Performed By: #### L503.0105, L500.4050, L500.4100, L501.9520, L501.9910, L506.0400 #### [facility] [address] [place], [place], [id number] PSA,TOTAL - ANNUAL Collected: 02/25/2018 Status: F Source: DES SCREEN 2:43 PM [facility] REPOSITORY Order Comment: Order Date: 02/25/18 Order Info: 785-08 - CMP Order Info: [id number] - LIPID Order Info: 6-3 - TSH Order Info: 28571 - PSA Order Info: 3024-7 - T4F Comments: B6 #[id number] PLASMA FROZEN PFL TYPE CODE TESTS RESULT OUT OF RANGE REFERENCE UNITS LAB L501.9910 0.00-4.00 ng/mL Normal PSA,TOT 0.60 SCREEN Result Comment: This test was performed using the TPSA assay method for the ProNoxis chemistry system. Values obtained with different assay methods cannot be used interchangably. When changing PSA assays in the course of monitoring a patient, additional sequential testing should be carried out to confirm baseline values. Performed By: #### L503.0105, L500.4050, L500.4100, L501.9520, L501.9910, L506.0400 #### [facility] [address] [place], [place], [address] T4 FREE DIRECT Collected: 02/25/2018 Status: F Source: DES 2:43 PM [facility] REPOSITORY Order Comment: Order Date: 02/25/18 Order Info: 07 - CMP Order Info: [id number] - LIPID Order Info: 3016-3 - TSH Order Info: 1 - PSA Order Info: 3027 - T4F Comments: B6 #[id number] PLASMA FROZEN PFL TYPE CODE TESTS RESULT OUT OF RANGE REFERENCE UNITS LAB L506.0400 0.76-1.46 ng/dL Normal T4 FREE 0.82 DIRECT Performed By: #### L503.0105, L500.4050, L500.4100, L501.9520, L501.9910, L506.0400 #### [facility] [address] [place], [address] MAGNESIUM Collected: 02/25/2018 Status: F Source: DES 2:43 PM [facility] REPOSITORY Order Comment: Order Date: 02/25/18 Order Info: 0786-1 - CMP Order Info: [id number] - LIPID Order Info: 3 - TSH Order Info: 2856-08 - PSA Order Info: 7 - T4F Comments: B6 #[id number] PLASMA FROZEN PFL TYPE CODE TESTS RESULT OUT OF RANGE REFERENCE UNITS LAB L501.5200 1.6-2.6 mg/dL Normal MG 1.7 Performed By: #### L501.5200 #### [facility] [address] [place], [address] MISCELLANEOUS LAB Collected: 02/25/2018 Status: F Source: DSE PROCEDURE 2:43 PM [facility] REPOSITORY Order Comment: Comments: B6 #[id number] PLASMA FROZEN PFL Test(s) Ordered: B6 #[id number] PLASMA FROZEN PFL TYPE CODE TESTS RESULT OUT OF RANGE REFERENCE UNITS LAB L801.1541 Normal MISC LAB TEST Result Comment: TEST RESULT UNITS REFERENCE INTERVAL Vitamin B6, Plasma Vitamin B6 8.5 ug/L 5.3 - 46.7 Disclaimer: This test was developed and its performance characteristics determined by [facility]. It has not been cleared or approved by the Food and Drug Administration. TESTING PERFORMED AT [facility]. ORIGINAL REPORT ON FILE IN LAB CONTAINS ADDITIONAL TEST SITE INFORMATION. Performed By: #### L801.1541 #### [facility] [address] [place], [address] VITAMIN B1, THIAMINE Collected: 02/25/2018 Status: F Source: [place] 2:43 PM [facility] REPOSITORY Order Comment: Comments: #[id number] PLASMA FROZEN PFL TYPE CODE TESTS RESULT OUT OF RANGE REFERENCE UNITS LAB L3300.8000 66.5-200.0 nmol/L Normal VIT B1 188.4 Result Comment: This test was developed and its performance characteristics determined by [facility]. It has not been cleared or approved by the Food and Drug Administration. Performed at: [address] [id number] Associate Professor Of Biology: Andre Spencer MD, Phone: [phone] Performed By: #### L3300.8000 #### [facility] (refer to report for specific site) refer to report for address and phone number SURGERY VISIT REPORT Observed: 01/04/2018 Status: F Source: [place] 2:24 PM [facility] REPOSITORY [facility] 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 Is patient in pain?: No Allergies Penicillins Allergy (Verified 01/04/18 13:50) Unknown Medications Omeprazole [Prilosec] 40 mg PO DAILY 07/04/15 [History Confirmed 01/04/18] Lisinopril/Hydrochlorothiazide [Zestoretic 20/12.5 Tablet] 1 tab PO DAILY 06/17/17 [History Confirmed 01/04/18] Meloxicam [Mobic] 15 mg PO PRN PRN 06/17/17 [History Confirmed 01/04/18] Finasteride [Proscar] 5 mg PO DAILY #30 tab 06/20/17 [Rx Confirmed 01/04/18] Loperamide [Imodium] 2 mg PO Q4H PRN PRN 06/29/17 [History Confirmed 01/04/18] Magnesium Oxide [Mag-Ox 400] 400 mg PO BIDCM 06/29/17 [History Confirmed 01/04/18] Tamsulosin HCl [Flomax] 0.4 mg PO DAILY@1730 06/29/17 [History Confirmed 01/04/18] vitamin B12 500 mcg-folic acid 400 mcg tablet 1 tab PO QDAY 01/04/18 [History Confirmed 01/04/18] PFSH Medical History Urinary retention due to benign prostatic hyperplasia (Acute) Acute encephalopathy (Acute) HTN (hypertension) (Chronic) GERD (gastroesophageal reflux disease) (Chronic) Smoker (Chronic) Serotonin syndrome (Resolved) Depression (Chronic) Alcohol abuse, daily use (Acute) Serotonin syndrome (Acute) Surgical History S/P right knee arthroscopy (Acute) S/P tonsillectomy (Acute) Family History Sister Diabetes Heart disease Mother CAD (coronary artery disease) Social History Smoking Status: Current every day smoker HPI HPI HPI: HANSEL GAMEZ, is a 47 M who presents to the office today for surgical consultation regarding intractable gastroesophageal reflux disease. The patient does have a degree of developmental disability. He is currently not employed. He has complaints of severe back pain and neck pain due to disc problems. He claims that he has orthopedic deterioration of his hips and knees. 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 He denies myocardial infarction. No CVA no diabetes. He is on chronic omeprazole. He states that if he does not take the omeprazole on a daily basis and that by the afternoon and evening time he will have a severe heartburn. There was an attempt to change him to ranitidine. Unfortunately he continued to have symptoms. The patient has been a long-term cigarette smoker of at least one pack per day. More recently he has been able to cut that back to half a pack per day. The patient also suggests that he had significant alcohol intake. Finally he is noted to be overweight at 240 pounds with a BMI of 34.5. He is not currently employed by his account because of his chronic back and orthopedic injuries. He denies myocardial infarction stroke or diabetes. Denies any chronic renal insufficiency. He does have a history of anxiety and depression. I am being asked to see this patient today by Dr Zia Osman regarding intractable reflux disease and surgical diagnosis and evaluation and a written copy of my surgical consult will return to Dr. Jacqui CAMP General General: No weight change, appetite, fatigue, colon cancer, breast cancer or weakness HEENT HEENT: No difficulty swallowing, eye injury, eye surgery, swollen glands or hoarseness Endo Endocrine: No thyroid disease, diabetes mellitus, thyroid cancer, Hair loss, heat intolerance or cold intolerance Musc Musculoskeletal: Yes back problems, arthritis and rheumatoid arthritis; no gout or joint pain Cardio Cardiovascular: Yes high blood pressure; no murmur, pacemaker, heart disease, atrial fibrillation, heart attack, heart stent, palpitations, shortness of breat with exertion or chest pain Psych Psychiatric: Yes depression and anxiety; no hearing voices Resp Respiratory: No shortness of breath, No sleep apnea, Yes cough, No COPD, No asthma, No emphysema, No wheezing Gastro Gastrointestinal: No abdominal pain, No nausea or vomiting, Yes diarrhea, No constipation, No blood in stool, Yes acid reflux, Yes hemorrhoids, No ulcers, No gallbladder problem, No black,tarry stools Shawn Hematologic: No blood thinners, No blood disorders, No bleeding, No anemia, No blood clots Neuro Neurologic: No weakness Exam Const General: cooperative, comfortable, no acute distress Nutritional Appearance: overweight Orientation: alert, awake, oriented x3 HENMT Head: normal to inspection Eyes General: appearance normal, both eyes and all related structures Neck Neck: normal visual inspection Chest Other: Increased anterior posterior diameter Resp Auscultation: clear to auscultation bilaterally Cardio Rate: regular rate Rhythm: regular rhythm Heart Sounds: no murmurs GI Other: Overweight, soft, nontender, no gross hepatosplenomegaly, difficult to appreciate due to body habitus. Musc Cervical Spine: normal cervical lordosis Skin General: no rashes or lesions noted Neuro General: CN's II-XI intact bilaterally Extrem General: no calf tenderness Psych Appearance: grossly normal Assessment AND Plan Problems 1. Gastroesophageal reflux disease, esophagitis presence not specified K21.9 Plan I am recommending the patient a esophagogastroduodenoscopy with possible biopsy as well as Cruz pH probe placement. Extensive discussion the patient regarding conservative measures that he can immediately initiate to assist with his symptomatic reflux. I have requested that he sincerely consider attempting at least a 20 pound weight loss. I have asked him to immediately cease his tobacco use. I have briefly discussed with him that there is a potential to perform a laparoscopic reflux procedure that would greatly improve his symptomatology and likely be able to curtail the future use of proton pump inhibitors. The patient however is aware that he will need to participate with modifiable factors weight loss and tobacco use in order to make that procedure possible. He has had an opportunity to ask and have questions answered. We will schedule and proceed with the endoscopy. I very much appreciate the kind opportunity of assisting with his surgical care. Cc: Dr. Zia Yanes M.D., F.A.C.S. Orders Orders: Coding Level of Care Code Detailed, Low Diagnoses Gastroesophageal reflux disease, esophagitis presence not specified K21.9 Esophagitis presence: esophagitis presence not specified 01/04/18 1424 <Electronically signed by Chuck Yanes MD> Date Chuck Yanes MD Cosigner Signature: Date (if applicable) CC: Zia Osman MD BASIC METABOLIC Collected: 12/23/2017 Status: F Source: DES PROFILE (BMP) 1:43 PM [facility] REPOSITORY Order Comment: Order Date: 12/23/17 Order Info: 0667-1 - BMP TYPE CODE TESTS RESULT OUT OF RANGE REFERENCE UNITS LAB L501.0100 74-106 mg/dL Normal GLU 83 Result Comment: Please note revised GLUCOSE reference range effective 2017. LAB L501.1000 7-18 mg/dL Normal BUN 13 LAB L501.1100 0.70-1.30 mg/dL Normal CREAT,SERUM 1.29 Result Comment: The validity of the calculated GFR AND GFRAA in patients over 70 years has not been determined. Clinical correlation is essential. LAB L501.1110 >60 mL/min Normal EST GFR 63 Result Comment: Non- GFR Calc LAB L501.1115 >60 mL/min Normal EST GFR - AA 76 Result Comment: GFR Calc LAB L501.1300 10-20 RATIO Normal BUN/CRE 10.1 LAB L501.2200 8.5-10.1 mg/dL CA Normal 9.2 LAB L501.5300 136-145 mmol/L NA Normal 138 LAB L501.5600 3.5-5.1 mmol/L K Normal 3.9 LAB L501.5900 98-107 mmol/L CL Normal 105 LAB L501.6100 21.0-32.0 mmol/L Normal CO2 21.0 LAB L501.6200 5-15 Normal GAP 12 Performed By: #### L500.2500 #### [facility] [address] [place], [place], [address] HEMOGLOBIN A1C Collected: 12/03/2017 Status: F Source: DES 10:15 AM [facility] REPOSITORY Order Comment: PLEASE ADD TPO THYROGLOBULIN A1C TO BLOOD DONE 12/03/17 PER TYPE CODE TESTS RESULT OUT OF RANGE REFERENCE UNITS LAB L501.9985 4.2-6.3 % Normal HGB A1C 5.2 Performed By: #### L501.9985 #### [facility] [address] [place], [address] THYROGLOBULIN W/ANTI-TG Collected: 12/03/2017 Status: F Source: DES AB 10:15 AM [facility] REPOSITORY Order Comment: PLEASE ADD TPO THYROGLOBULIN A1C TO BLOOD DONE 12/03/17 PER TYPE CODE TESTS RESULT OUT OF RANGE REFERENCE UNITS LAB L3300.7025 0.0-0.9 IU/mL Normal ANTI-TG < 1.0 AB Result Comment: Thyroglobulin Antibody measured by [facility] LAB L3400.1030 1.4-29.2 ng/mL Normal THYROGLOB 26.3 Result Comment: According to the National Academy of Clinical Biochemistry, the reference interval for Thyroglobulin (TG) should be related to euthyroid patients and not for patients who underwent thyroidectomy. TG reference intervals for these patients depend on the residual mass of the thyroid tissue left after surgery. Establishing a post-operative baseline is recommended. The assay limit of quantitation is 0.1 ng/mL Thyroglobulin measured by [facility] [place] [facility] Performed By: #### L3300.6820, L3300.6900 #### [facility] (refer to report for specific site) refer to report for address and phone number THYROID PEROXIDASE AB Collected: 12/03/2017 Status: F Source: [place] 10:15 AM [facility] REPOSITORY Order Comment: PLEASE ADD TPO THYROGLOBULIN A1C TO BLOOD DONE 12/03/17 PER TYPE CODE TESTS RESULT OUT OF RANGE REFERENCE UNITS LAB L3300.6900 0-34 IU/mL Normal TPO AB 12 6676 Result Comment: Performed at: [address] [id number] Associate Professor Of Biology: Donny Kerr PhD, Phone: [phone] Performed By: #### L3300.6820, L3300.6900 #### [facility] (refer to report for specific site) refer to report for address and phone number MISCELLANEOUS LAB Collected: 12/03/2017 Status: F Source: DES PROCEDURE 10:15 AM [facility] REPOSITORY Order Comment: PLEASE ADD TPO THYROGLOBULIN A1C TO BLOOD DONE 12/03/17 PER Comments: #4655 B6 PLASMA FROZEN PROTECT FROM LIGHT Test(s) Ordered: #4655 B6 PLASMA FROZEN PROTECT FROM LIGHT TYPE CODE TESTS RESULT OUT OF RANGE REFERENCE UNITS LAB L801.1541 Normal [facility] LAB TEST Result Comment: TEST RESULT LIMITS Vitamin B6, Plasma 8.4 ug/L 5.3 - 46.7 Disclaimer: 01 This test was developed and its performance characteristics determined by [employer]. It has not been cleared or approved by the Food and Drug Administration. TESTING PERFORMED AT [facility]. ORIGINAL REPORT ON FILE IN LAB CONTAINS ADDITIONAL TEST SITE INFORMATION. Performed By: #### L801.1541 #### [facility] [address] [place], [address] URINE DRUG SCREEN Collected: 12/03/2017 Status: P Source: DES ([employer]) 10:14 AM [facility] REPOSITORY Order Comment: Order Date: 12/03/17 Order Info: 0819-1 - UDS List of Drugs Taken or Suspected? UNK TYPE CODE TESTS RESULT OUT OF RANGE REFERENCE UNITS LAB L505.0075 TO BE Normal CONFIRMED Result Comment: CONFIRMATORY TESTING FOR ALL POSITIVE URINE DRUG SCREEN RESULTS WILL ONLY BE SENT OUT UPON PHYSICIAN ORDER. VISTA Urine Drug Screen methods provide only preliminary analytical test results. A more specific alternate chemical method must be used in order to obtain a confirmed analytical result. Gas chromatography/mass spectrometery (GC/MS) is the preferred confirmatory method. Clinical consideration and professional judgement should be applied to any drug of abuse test result, particularly when preliminary positive results are used. URINE TCA TESTING MUST BE ORDERED SEPARATELY. USE TEST MNEMONIC: [facility] Performed By: #### L505.5000, L100.0100, L503.0105, L500.4050, L500.4100, L501.5200, L501.9520, L506.0400 #### [facility] [address] [place], [address] CBC W/DIFF, AUTOMATED Collected: 12/03/2017 Status: F Source: DES 10:14 AM [facility] REPOSITORY Order Comment: Order Date: 12/03/17 Order Info: 0184-1 - CBCD TYPE CODE TESTS RESULT OUT OF RANGE REFERENCE UNITS LAB L100.1000 4.4-11.0 K/mm3 Normal WBC 8.5 LAB L100.1200 4.6-6.2 M/mm3 Low RBC 4.28 LAB L100.1300 13.0-16.5 g/dl Low HGB 12.8 LAB L100.1400 40-54 % Low HCT 39.6 LAB L100.1500 80-94 fL Normal MCV 92.5 LAB L100.1600 27.0-32.0 pg Normal MCH 29.9 LAB L100.1700 32-36 g/gl Normal MCHC 32.3 LAB L100.1810 11.6-14.6 % High RDW CV 14.9 LAB L100.1820 35.1-43.9 fl High RDW SD 49.0 LAB L100.1900 150-450 K/mm3 Normal PLT 419 LAB L100.2000 6.2-12.0 fl Normal MPV 9.2 LAB L100.2100 47-70 % Normal NEUT% 60.8 LAB L100.2200 19-41 % Normal LY% 23.3 LAB L100.2300 0-10 % Normal MONO% 9.8 LAB L100.2400 0-5 % Normal EO% 4.5 LAB L100.2500 0-1 % High BASO% 1.4 LAB L100.2550 0.0-0.9 % Normal IM GRAN % 0.200 Result Comment: IG% - Immature Granulocytes (promyelocytes, myelocytes and metamyelocytes) > 1% indicates that a LEFT SHIFT is Present. LAB L100.2620 2.0-7.7 X10 3/uL Normal Absolute Neut 5.2 LAB L100.2720 0.83-4.51 X10 3/ul Normal Absolute Lymph 1.97 Performed By: #### L505.5000, L100.0100, L503.0105, L500.4050, L500.4100, L501.5200, L501.9520, L506.0400 #### [facility] [address], [address] VITAMIN B12 Collected: 12/03/2017 Status: F Source: DES 10:14 AM [facility] REPOSITORY Order Comment: Order Date: 12/03/17 Order Info: 2132-9 - B12 TYPE CODE TESTS RESULT OUT OF RANGE REFERENCE UNITS LAB L503.0105 211-911 pg/mL Normal Vitamin B12 369 Performed By: #### L505.5000, L100.0100, L503.0105, L500.4050, L500.4100, L501.5200, L501.9520, L506.0400 #### [facility] [address] [place], [address] COMPREHENSIVE METABOLIC Collected: 12/03/2017 Status: F Source: DES [facility] 10:14 AM [facility] REPOSITORY Order Comment: Order Date: 12/03/17 Order Info: 0786-1 - CMP Order Info: 06300-6 - LIPID Order Info: [id number] - MG Order Info: 3016-3 - TSH Order Info: 3024-7 - T4F Comments: #4655 B6 PLASMA FROZEN PROTECT FROM LIGHT TYPE CODE TESTS RESULT OUT OF RANGE REFERENCE UNITS LAB L501.0100 74-106 mg/dL High GLU 132 Result Comment: Fasting Glucose result greater than or equal to 126 mg/dL suggests DIABETES MELLITUS per A.D.A. criteria. Please note revised GLUCOSE reference range effective 2017. LAB L501.1000 7-18 mg/dL Normal BUN 15 LAB L501.1100 0.70-1.30 mg/dL High CREAT,SERUM 1.44 Result Comment: The validity of the calculated GFR AND GFRAA in patients over 70 years has not been determined. Clinical correlation is essential. LAB L501.1110 >60 mL/min Low EST GFR 56 Result Comment: Non- GFR Calc LAB L501.1115 >60 mL/min Normal EST GFR - AA 67 Result Comment: GFR Calc LAB L501.1300 10-20 RATIO Normal BUN/CRE 10.4 LAB L501.1500 6.4-8.2 g/dL T Normal PROT 8.1 LAB L501.1800 3.2-5.0 g/dL Normal ALB 4.2 LAB L501.1950 2.2-4.2 g/dL Normal GLOB 3.9 LAB L501.2000 0.9-2.4 RATIO Normal A/G 1.1 LAB L501.2200 8.5-10.1 mg/dL CA Normal 8.6 LAB L501.4100 15-37 U/L High AST 43 LAB L501.4305 45-117 U/L Normal ALK P 106 LAB L501.4405 16-61 U/L Normal ALT 42 LAB L501.4600 0.20-1.00 mg/dL T Normal BILI 0.30 LAB L501.5300 136-145 mmol/L NA Normal 137 LAB L501.5600 3.5-5.1 mmol/L K Normal 3.9 LAB L501.5900 98-107 mmol/L CL Normal 106 LAB L501.6100 21.0-32.0 mmol/L Normal CO2 21.0 LAB L501.6200 5-15 Normal GAP 10 Performed By: #### L505.5000, L100.0100, L503.0105, L500.4050, L500.4100, L501.5200, L501.9520, L506.0400 #### [facility] [address] [place], [address] LIPID PROFILE Collected: 12/03/2017 Status: F Source: DES 10:14 AM [facility] REPOSITORY Order Comment: Order Date: 12/03/17 Order Info: 0786-1 - CMP Order Info: [id number] - LIPID Order Info: [id number] - MG Order Info: 3016-3 - TSH Order Info: 3024-7 - T4F Comments: #4655 B6 PLASMA FROZEN PROTECT FROM LIGHT TYPE CODE TESTS RESULT OUT OF RANGE REFERENCE UNITS LAB L501.4900 200 mg/dL High CHOL 254 Result Comment: <200 mg/dL Desirable 200-240 mg/dL Borderline >240 mg/dL High Risk LAB L501.5000 mg/dL High TRIG 1118 Result Comment: The drugs N-Acetylcysteine and Metamizole may falsely depress this assay. Serum Triglycerides Reference Interval Normal <150 mg/dL Borderline high 150 - 199 mg/dL High 200 - 499 mg/dL Very High > or = 500 mg/dL LAB L501.6400 mg/dL Normal HDL 46 Result Comment: The drugs N-Acetylcysteine and Metamizole may falsely depress this assay. Reference Range HDL <40 mg/dL Low HDL Cholesterol HDL >or= 60 mg/dL High HDL Cholesterol LAB L501.6500 0-130 mg/dL Test Normal not performed LDL LAB L501.6600 5-40 mg/dL Test Normal not performed VLDL Performed By: #### L505.5000, L100.0100, L503.0105, L500.4050, L500.4100, L501.5200, L501.9520, L506.0400 #### [facility] [address] [place], [place], [id number] MAGNESIUM Collected: 12/03/2017 Status: F Source: DES 10:14 AM [facility] REPOSITORY Order Comment: Order Date: 12/03/17 Order Info: [id number] - CMP Order Info: [id number] - LIPID Order Info: [id number] - MG Order Info: [id number] - TSH Order Info: [id number] - T4F Comments: #[id number] PLASMA FROZEN PROTECT FROM LIGHT TYPE CODE TESTS RESULT OUT OF RANGE REFERENCE UNITS LAB L501.5200 1.6-2.6 mg/dL Low MG 1.5 Performed By: #### L505.5000, L100.0100, L503.0105, L500.4050, L500.4100, L501.5200, L501.9520, L506.0400 #### [facility] [address] [place], [place], [id number] THYROID STIM HORMONE Collected: 12/03/2017 Status: F Source: DES (TSH) 10:14 AM [facility] REPOSITORY Order Comment: Order Date: 12/03/17 Order Info: [id number] - CMP Order Info: [id number] - LIPID Order Info: [id number] - MG Order Info: [id number] - TSH Order Info: [id number] - T4F Comments: #[id number] PLASMA FROZEN PROTECT FROM LIGHT TYPE CODE TESTS RESULT OUT OF RANGE REFERENCE UNITS LAB L501.9520 0.358-3.74 uIU/mL High TSH 4.75 Performed By: #### L505.5000, L100.0100, L503.0105, L500.4050, L500.4100, L501.5200, L501.9520, L506.0400 #### [facility] [address] [place], [place], [address] T4 FREE DIRECT Collected: 12/03/2017 Status: F Source: DES 10:14 AM [facility] REPOSITORY Order Comment: Order Date: 12/03/17 Order Info: [id number] - CMP Order Info: [id number] - LIPID Order Info: [id number] - MG Order Info: [id number] - TSH Order Info: [id number] - T4F Comments: #[id number] [id number] PLASMA FROZEN PROTECT FROM LIGHT TYPE CODE TESTS RESULT OUT OF RANGE REFERENCE UNITS LAB L506.0400 0.76-1.46 ng/dL Normal T4 FREE 0.86 DIRECT Performed By: #### L505.5000, L100.0100, L503.0105, L500.4050, L500.4100, L501.5200, L501.9520, L506.0400 #### [facility] [address] [place], [place], [address] CBC-COMPLETE BLOOD CNT Collected: 11/04/2017 Status: F Source: DES NO DIFF 1:36 PM [facility] REPOSITORY TYPE CODE TESTS RESULT OUT OF RANGE REFERENCE UNITS LAB L100.1000 4.4-11.0 K/mm3 Normal WBC 8.3 LAB L100.1200 4.6-6.2 M/mm3 Low RBC 3.71 LAB L100.1300 13.0-16.5 g/dl Low HGB 11.5 LAB L100.1400 40-54 % Low HCT 34.9 LAB L100.1500 80-94 fL High MCV 94.1 LAB L100.1600 27.0-32.0 pg Normal MCH 31.0 LAB L100.1700 32-36 g/gl Normal MCHC 33.0 LAB L100.1810 11.6-14.6 % Normal RDW CV 14.4 LAB L100.1820 35.1-43.9 fl High RDW SD 47.2 LAB L100.1900 150-450 K/mm3 Normal PLT 400 LAB L100.2000 6.2-12.0 fl Normal MPV 8.6 Performed By: #### L100.0500 #### [facility] [address] [place], [address] AMMONIA Collected: 11/04/2017 Status: F Source: [place] 1:36 PM [facility] REPOSITORY TYPE CODE TESTS RESULT OUT OF RANGE REFERENCE UNITS LAB L503.5510 11-32 umol/L Normal AMMONIA 29.0 Performed By: #### L503.5510 #### [facility] [address] [place], [address] COMPREHENSIVE METABOLIC Collected: 11/04/2017 Status: F Source: DES PROFIL 1:36 PM [facility] REPOSITORY Order Comment: Is Patient Taking Vitamins or Folic Acid Supplements? N TYPE CODE TESTS RESULT OUT OF RANGE REFERENCE UNITS LAB L501.0100 74-106 mg/dL Normal GLU 93 Result Comment: Please note revised GLUCOSE reference range effective 2017. LAB L501.1000 7-18 mg/dL Normal BUN 14 LAB L501.1100 0.70-1.30 mg/dL Normal CREAT,SERUM 1.11 Result Comment: The validity of the calculated GFR AND GFRAA in patients over 70 years has not been determined. Clinical correlation is essential. LAB L501.1110 >60 mL/min Normal EST GFR 75 Result Comment: Non- GFR Calc LAB L501.1115 >60 mL/min Normal EST GFR - AA 91 Result Comment: GFR Calc LAB L501.1300 10-20 RATIO Normal BUN/CRE 12.6 LAB L501.1500 6.4-8.2 g/dL T Normal PROT 7.3 LAB L501.1800 3.2-5.0 g/dL Normal ALB 3.6 LAB L501.1950 2.2-4.2 g/dL Normal GLOB 3.7 LAB L501.2000 0.9-2.4 RATIO Normal A/G 1.0 LAB L501.2200 8.5-10.1 mg/dL Low CA 8.3 LAB L501.4100 15-37 U/L Normal AST 24 LAB L501.4305 45-117 U/L Normal ALK P 92 LAB L501.4405 16-61 U/L Normal ALT 29 Result Comment: Please note revised ALT reference range effective 2017. LAB L501.4600 0.20-1.00 mg/dL Normal T BILI 0.30 LAB L501.5300 136-145 mmol/L Normal NA 138 LAB L501.5600 3.5-5.1 mmol/L Normal K 3.9 LAB L501.5900 98-107 mmol/L Normal CL 104 LAB L501.6100 21.0-32.0 mmol/L Normal CO2 26.0 LAB L501.6200 5-15 Normal GAP 8 Performed By: #### L500.4050, L501.2300, L501.5200, L506.0250 #### [facility] [address] [place], [address] PHOSPHORUS Collected: 11/04/2017 Status: F Source: [place] 1:36 PM [facility] REPOSITORY Order Comment: Is Patient Taking Vitamins or Folic Acid Supplements? N TYPE CODE TESTS RESULT OUT OF RANGE REFERENCE UNITS LAB L501.2300 2.5-4.9 mg/dL Low PHOS 2.3 Performed By: #### L500.4050, L501.2300, L501.5200, L506.0250 #### [facility] [address] [place], [place], [address] MAGNESIUM Collected: 11/04/2017 Status: F Source: [place] 1:36 PM [facility] REPOSITORY Order Comment: Is Patient Taking Vitamins or Folic Acid Supplements? N TYPE CODE TESTS RESULT OUT OF RANGE REFERENCE UNITS LAB L501.5200 1.6-2.6 mg/dL Low MG 1.5 Result Comment: Please note revised Magnesium reference range effective 2017. Performed By: #### L500.4050, L501.2300, L501.5200, L506.0250 #### [facility] [address] [place], [address] FOLATES, (FOLIC ACID) Collected: 11/04/2017 Status: F Source: [place] 1:36 PM [facility] REPOSITORY Order Comment: Is Patient Taking Vitamins or Folic Acid Supplements? N TYPE CODE TESTS RESULT OUT OF RANGE REFERENCE UNITS LAB L506.0250 3.1-55.4 ng/mL Normal FOLATES 19.00 Performed By: #### L500.4050, L501.2300, L501.5200, L506.0250 #### [facility] [address] [place], [address] VITAMIN B12 Collected: 11/04/2017 Status: F Source: [place] 1:36 PM [facility] REPOSITORY TYPE CODE TESTS RESULT OUT OF REFERENCE UNITS RANGE LAB L503.0105 211-911 pg/mL Low Vitamin B12 177 Performed By: #### L503.0105 #### [facility] [address] [place], [address] CONSULTATION Observed: 11/02/2017 Status: F Source: DES 12:58 PM [facility] REPOSITORY Medical Records Department [address] [place] [address] Consultation 06/29/17 1413 MR#: [id number] Acct: [id number] Name: HANSEL GAMEZ Rep #: [id number] : 1970 46 From: Eduardo Medina MD PCP: Twan ANSARI,Stacey Status: DIS IN Y Location: [place] [address]-1 Problem List (1) Acute encephalopathy Status: Acute (2) Alcohol abuse, daily use Status: Acute Reason for Consult Date of Consultation: 06/29/17 Reason for Consultation: altered mental status History of Present Illness: The patient is a 46 year old CM with PMH HTN, H/O serotonin syndrome, ETOH abuse, marijuana abuse, depression admitted with AMS. History is obtained from medical records and mother, sister and brother in law. Per mother he was normal yesterday and then became confused overnight. He did not sleep last night, was confused and disoriented when he came into the ED. CT head reported normal. LP was done in the ED which showed 2 wbcs, normal protein and glucose. At present patient is very drowsy but is oriented and denies any ARAGON, visual disturbances, sensory loss, motor weakness. He was recently admitted to [facility] with possible serotonin syndrome, he was on antidepressants and SSRIs which were discontinued and per mother he has been doing good over the last 2 weeks after the medication were stopped. He drinks about 6 packs of beer per day and smokes marijuana. He was found to be hypertensive on admission. No witnessed seizures. [] Past Medical History Past Medical History (Chronic Problems): Chronic Problems Depression (Chronic) GERD (gastroesophageal reflux disease) (Chronic) HTN (hypertension) (Chronic) Smoker (Chronic) Allergies Penicillins Allergy (Verified 05/28/17 04:07) Unknown Home Medications: Ambulatory Orders Medication Instructions Recorded Omeprazole [Prilosec] 40 mg PO DAILY 07/04/15 Lisinopril/Hydrochlorothiazide 1 tablet PO DAILY 06/17/17 Lives: - - with mother Smoking Status: Current every day smoker Tobacco Use: Non-smoker Alcohol: Heavy - 6 packs of beer per day Drugs: Marijuana - *Family History Maternal History Items: No pertinent history Additional Family History: Patient is currently sedated and unable to provide any treatment regards to family. . - negative for acute neurological illness Review of Systems Constitutional: Reports: - - complete ROS negative except as documented in HPI - Physical Exam General: - - drowsy, easily arousable, follows VC, AOA x 3 HEENT: Atraumatic, PERRLA, EOMI, Normocephalic Neck: Supple, No JVD, Negative Carotid Bruits Lungs: Clear to auscultation, Normal air movement Cardiovascular: Regular rate, No murmurs Abdomen: Bowel Sounds Present, Soft, Non Tender Extremities: No edema, Capillary Refill Less than 3 Seconds Skin: No rashes, No breakdown Musculoskeletal: No Tenderness to Palpation of Joints or Extremities Neurological: - - drowsy, easily arousable, follows VC, AOA x 3, CN- upbeat nystagmus in both eyes on vertical upgaze, EOMI rest normal, power 5/5 all 4 limbs, plantars b/l flexor, no sensory loss, cerebellar signs could not be tested, Reflexes + B/L B/S/T/K/A, gait deferred. Psych/Mental Status: Normal Affect, Appropriate Vital Signs Temp Pulse Resp BP Pulse Ox 97.8 F 101 18 184/111 99 06/29/17 06:44 06/29/17 12:22 06/29/17 12:22 06/29/17 12:22 06/29/17 12:22 Assessment/Plan The patient is a 46 year old CM with PMH HTN, H/O serotonin syndrome, ETOH abuse, marijuana abuse, depression admitted with AMS. Impression Altered mental status Delirium Acute confusion Possible Metabolic Encephalopathy/Hypertensive encephalopathy R/O PRES Plan -Recommend MRI brain -LP results reviewed -Labs reviewed. Recommend Ammonia level. -CT head reviewed normal -Recommend EEG -Goal BP < 130/80 mmHg. Will defer further BP management to the primary team -W/F DTs. -Recommend PT/OT -GI/DVT prophylaxis -Fall precautions -Please call with questions if any -Thank you for allowing us to participate in patients care and management. I spent 60 minutes of critical care time in the ED taking history, doing physical examination, reviewing medical records, coordinating medical care and counseling patient and available family at bedside. - 06/30/172143 <Electronically signed by Eduardo Medina MD> Date Eduardo Medina MD Cosigner Signature (if applicable): Date CC: Neptali Medina MD; Stacey Hagan MD Signed ELECTROENCEPHALOGRAM Observed: 11/02/2017 Status: F Source: [place] 12:57 PM [facility] REPOSITORY Pulmonary Services/Neurology [address] [place] [address] MR#: [id number] Acct: [id number] Name: HANSEL GAMEZ Rep #: [id number] : 1970 46 From: Eduardo Medina MD Referring Dr: Remington Luque MD Status: DIS IN Ordering Dr: Date: [place] [facility] [place] [id number] Sex: M C - Electroencephalogram Date of service 06/30/2017 History EEG is being done in this 46 yr M to rule out seizures EEG Description: This is an 18 channel EEG with 10-20 lead placement system. Bipolar montages, Referential and Circumferential montages were reviewed. Photic stimulation and Hyperventilation were performed. The posterior dominant background rhythm is 6-7 HZ synchronous, symmetric, reacting to eye opening and closing. Photo stimulation elicited normal driving response but no abnormal photoparoxysmal response, Hyperventilation did not elicit any abnormal photoparoxysmal response. Sleep was not identified. There was no epileptiform discharges or electrographic seizures noted during this recording. There is generalized background slowing in the theta frequency range. EEG Interpretation This is an abnormal EEG due to mild generalized background slowing. This is seen with generalized cerebral dysfunction like metabolic/toxic encephalopathy. Clinical correlation is advised. There is no epileptiform discharges or electrographic seizures noted during the record. 06/30/172143 <Electronically signed by Eduardo Medina MD> Date Eduardo Medina MD CC: Neptali Medina MD; Stacey Hagan MD Date Dictated: 06/30/171499 Date Transcribed: 06/30/171499 Work Environment Safety Inspector: RSDemian Signed TOXICOLOGY SCREEN,UR Collected: 09/27/2017 Status: F Source: [place] 12:54 PM [facility] REPOSIT[facility] TYPE CODE TESTS RESULT OUT OF REFERENCE UNITS RANGE LAB UPCP2 Negative Negative Phencyclidin e, Urine Result Comment: Cutoff threshold at 25 ng/mL. Cross reactivity with other substances can occur with immunoassay screening. In house validation testing showed 80% of preliminary positive samples were confirmed by mass spectrometry (high specificity, quantitative) testing. Greater than 99% of negative screen results were confirmed by mass spectrometry (high specificity, quantitative) testing. LAB UBENZ2 Negative Benzodiazepines, Ur Negative Result Comment: Cutoff threshold at 200 ng/mL. Cross reactivity with other substances can occur with immunoassay screening. In house validation testing showed 90% of preliminary positive samples were confirmed by mass spectrometry (high specificity, quantitative) testing. 80% of negative screen results were confirmed by mass spectrometry (high specificity, quantitative) testing. LAB UCOC2 Negative Cocaine, Negative Urine Result Comment: Cutoff threshold at 300 ng/mL. Cross reactivity with other substances can occur with immunoassay screening. In house validation testing showed greater than 99% of preliminary positive samples were confirmed by mass spectrometry (high specificity, quantitative) testing. Greater than 99% of negative screen results were confirmed by mass spectrometry (high specificity, quantitative) testing. LAB UAMPH2 Negative Amphetamines, Urine Negative Result Comment: Cutoff threshold at 1000 ng/mL. Cross reactivity with other substances can occur with immunoassay screening. In house validation testing showed 70% of preliminary positive samples were confirmed by mass spectrometry (high specificity, quantitative) testing. Greater than 99% of negative screen results were confirmed by mass spectrometry (high specificity, quantitative) testing. LAB UTHC2 Negative Cannabinoids, Abnormal Urine Preliminary Alert positive. Result Comment: Cutoff threshold at 50 ng/mL. Cross reactivity with other substances can occur wtih immunoassay screening. In house validation testing showed 80% of preliminary positive samples were confirmed by mass spectrometry (high specificity, quantitative) testing. Greater than 99% of negative screen results were confirmed by mass spectrometry (high specificity, quantitative) testing. LAB UOPI2 Negative Opiates, Negative Urine Result Comment: Cutoff threshold at 300 ng/mL. Cross reactivity with other substances can occur wtih immunoassay screening. In house validation testing showed greater than 99% of preliminary positive samples were confirmed by mass spectrometry (high specificity, quantitative) testing. 90% of negative screen results were confirmed by mass spectrometry (high specificity, quantitative) testing. LAB UBARB2 Negative Barbiturates, Urine Negative Result Comment: Cutoff threshold at 200 ng/mL. Cross reactivity with other substances can occur with immunoassay screening. In house validation testing showed greater than 99% of preliminary positive samples were confirmed by mass spectrometry (high specificity, quantitative) testing. Greater than 99% of negative screen results were confirmed by mass spectrometry (high specificity, quantitative) testing. LAB UETOH <11 mg/dL <11 Ethanol, Urine LAB UOXYC Negative Oxycodone, Negative Urine Result Comment: Cutoff threshold at 100 ng/mL. Cross reactivity with other substances can occur with immunoassay screening. In house validation testing showed greater than 99% of preliminary positive samples were confirmed by mass spectrometry (high specificity, quantitative) testing. Greater than 99% of negative screen results were confirmed by mass spectrometry (high specificity, quantitative) testing. Comment: Immunoassay screen only. Detection of any drug(s) in this urine toxicology panel is presumptive only. Intended use is for evaluation of suspected acute overdose. These tests are for medical purposes onl y and should not be used for compliance monitoring, legal, or forensic use. If clinically indicated, confirmation by high specificity, quantitative methodology may be requested on the same specimen through Client Services ([phone]) if contacted within 48 hours of initial testing. These tests were developed and their performance characteristics determined by [facility] ([facility]). They have not been cleared or a pproved by the FDA. [facility] is regulated under CLIA as qualified to perform high complexity testing. These tests are used for clinical purposes. They should not be regarded as investigational or for research. Performed By: #### UTOX2, UQNTPP #### [facility] [address] [place], [place] [address] QUANT PAIN PANEL, Collected: 09/27/2017 Status: F Source: [place] 12:54 PM [facility] REPOSITORY TYPE CODE TESTS RESULT OUT OF REFERENCE UNITS RANGE LAB UQCANN <16 ng/mL High 237 Cannabinoid, Urine Result Comment: Tetrahydrocannabinol carboxylic acid (THCA) is a metabolite of ttmoe-1-zkpmrxfyxhqwgnytgotf which is the main active component of marijuana. Presence of THCA indicates use of marijuana. LAB UQBNZL <24 ng/mL Benzoylecognine, Ur <24 Result Comment: Benzoylecognine is a metabolite of cocaine. LAB UQACMR <5 ng/mL 6-Acetylmorphine, Ur <5 Result Comment: 6-TAISHA (6-monoacetylmorphine, also known as 6-acetylmorphine) is a unique metabolite of heroin. Presence of 6-TAISHA indicates use of heroin. 6-TAISHA is further metabolized to morphine and absence of 6-TAISHA does not rule out the use of heroin. LAB UQAMPH <5 ng/mL Amphetamine, Urine <5 LAB UQMAMP <8 ng/mL Methamphetamine, Ur <8 LAB UQBUPR <20 ng/mL Buprenorphine, Ur <20 LAB UQNBUP <20 ng/mL Norbuprenorphine, Ur <20 Result Comment: Norbuprenorphine is the primary active metabolite of buprenorphine. LAB UQMTHD <16 ng/mL Methadone, Urine <16 LAB UQEDDP <6 ng/mL EDDP, Urine <6 Result Comment: EDDP is a metabolite of methadone. LAB UQTRAM <25 ng/mL Tramadol, Urine <25 LAB UQDTRM <20 ng/mL Desmethyltramadol <20 ,Ur Result Comment: Desmethyltramadol is a metabolite of tramadol. LAB UQFNTL <6 ng/mL Fentanyl, Urine <6 LAB UQNFTL <6 ng/mL Norfentanyl, Urine <6 Result Comment: Norfentanyl is a metabolite of fentanyl. LAB UQCODE <11 ng/mL Codeine, Urine <11 LAB UQMORP <10 ng/mL Morphine, Urine <10 Result Comment: Morphine is a metabolite of codeine and heroin. LAB UQDCDN <5 ng/mL Dihydrocodeine, Ur High 38 Result Comment: The presence of dihydrocodeine may arise from dihydrocodeine containing drugs or from the metabolism of hydrocodone. LAB UQHCOD <8 ng/mL Hydrocodone, High Urine 45 Result Comment: Hydrocodone may arise from hydrocodone containing drugs or by metabolism of dihydrocodeine. Hydrocodone is also a minor metabolite of codeine, and may be detected with elevated levels of codeine. Hydrocodone is metabolized to hydromorphone and dihydrocodeine. LAB UQOXYC <5 ng/mL Oxycodone, Urine <5 LAB UQHMOR <5 ng/mL Hydromorphone, Ur <5 Result Comment: Hydromorphone is a metabolite of hydrocodone. LAB UQOXYM <5 ng/mL Oxymorphone, Urine <5 Result Comment: Oxymorphone is a metabolite of oxycodone. LAB UQCREA >19 mg/dL Creatinine, 20-50 Urine LAB UQPH 4-10 pH, Urine 4-10 LAB UQSPGR 1.005-1.020 Specific [place],Ur 1.005-1.020 LAB UQOXID Negative Oxidants, Negative Urine LAB UQSPQ Specimen Specimen Quality quality results within acceptable limits. LAB UQNOTE Note This test is for Medical use only. Result Comment: This test was developed and its performance characteristics determined by [facility] ([facility]). It has not been cleared or approved by the FDA. [facility] is regulated under CLIA as qualified to perform high-complexity testing. This test is used for clinical purposes. It should not be regarded as investigational or for research. Performed By: #### UTOX2, UQNTPP #### [facility] [address] [place] [id number] PROGRESS Observed: 09/27/2017 Status: COMPLETED Source: [place] 11:24 AM [facility] [place] REPOSITORY HNO ID: [id number] Author: Danielle Yin (Gema) Moris Service: (none) Author Type: Physician Water Vessel Captain Type: Progress Notes Filed: 09/27/2017 8:18 PM Note Text: 46 year old male with hx alcohol and marijuana abuse, HTN, BPH, anxiety/ depression, slow learner c/o having episodes with delirium over last few months. Doesn't recall the occurrences. May last from 2-8 hours. Has taken off clothes and walked around without knowing it (at home). Wads up paper towels. Put jessica cups in toilet once. Woke up in dry bathtub once. Records indicate these have been witnessed by his niece who states his speech was not garbled, no focal signs, confused and confabulating. At first told r/t to serotonin syndrome through [facility] ED. Stopped Prozac as a result. Feels may have some depression. 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 No money to renew or buy a car. Drinking 2-3x 20oz beers a day, states from his friends who buy it. Also smokes marijuana on occasion. In hospital twice with elevated ammonia levels during episodes. MRI + CT brain and spinal tap WNL 06/29/17. EEG 06/30/17 showed mild generalized background slowing consistent with encephalopathy WNL. Was managed under Dr. Medina neuro [facility]. Has had numerous falls but denies head injuries. No known seizures self or family. Claims developmental delays in learning. Living on [employer]. Has been employed in past. Has been once x 10 years. Has 2 sons, 28, 17. HISTORIES FAMILY HISTORY Problem Relation Age of Onset - Other [OTHER] Father heart issues, heart attack - Diabetes Sister older sister PAST MEDICAL HISTORY Diagnosis Date - Alcohol abuse - Anxiety - Chronic sinusitis 05/28/2017 CT: mucoperiosteal thickening and debri suggestion chronic sinusitis bilateral ethmoid and right maxillary - Depression - Hip dysplasia chronic since shildhood. bilateral. - Marijuana use No past surgical history on file. Social History Marital status: Spouse name: Years of education: Number of children: Social History Main Topics Smoking status: Current Every Day Smoker Packs/day: 1.00 Years: 25.00 Smokeless status: Never Used Alcohol use: Yes 9.0 oz/week 6 Cans of Beer (12oz) per week Drug use: Yes Special: Marijuana ACTIVE PROBLEM LIST Tobacco Use Disorder Heartburn Depressed Pain in Thoracic Spine Essential Hypertension, Benign Alcohol Abuse Marijuana Use Acute Metabolic Encephalopathy Current Outpatient Prescriptions: finasteride (PROSCAR) 5 mg tablet Take 1 tablet by mouth once daily. Disp: 30 tablet Rfl: 11 lisinopril-hydrochlorothiazide (PRINZIDE,ZESTORETIC) 20-12.5 mg per tablet Take 1 tablet by mouth every morning. Disp: 30 tablet Rfl: 11 meloxicam (MOBIC) 15 mg tablet TAKE 1 TABLET EVERY DAY WITH FOOD NEEDED FOR PAIN Disp: 30 tablet Rfl: 11 thiamine (VITAMIN B1) 100 mg tablet Take 1 tablet by mouth once daily. Disp: 30 tablet Rfl: 5 tamsulosin ER (FLOMAX) 0.4 mg cp24 Take 1 capsule by mouth once daily. Disp: 30 capsule Rfl: 5 magnesium oxide (MAG-OX) 400 mg tablet Take 1 tablet by mouth twice daily. Disp: 60 tablet Rfl: 2 Omeprazole 40 mg capsule Take 1 capsule by mouth once daily. Disp: 90 capsule Rfl: 3 No current facility-administered medications for this visit. There are no preventive care reminders to display for this patient. REVIEW OF SYMPTOMS: General: denies fatigue, unusual weight loss or gain, fevers, chills. Eyes: denies change in vision, glaucoma, cataracts. Has glasses: not wearing them. EENT: denies recurrent sinus infection, unusual nasal drainage, hoarsemess, sore throat, or recurrent sore in mouth or tongue. Cardiovascular: denies chest pain , SOB, palpitation, irregular or racing heart beats, orthopnea, leg swelling, history of rheumatic fever or prior heart conditions Respiratory: intermittent chronic cough. Occasional sputum, no blood. Denies SOB, wheezing, history of recurrent bronchitis, pneumonia or tuberculosis. Denies day time drowsiness. Denies snoring. Denies sleep apnea. GI: denies difficulty swallowing, nausea, vomiting, change in appetite. No change in bowel habits. Dx IBS in past: primarily diarrhea. No colonoscopy. Hx rectal pain ad bleeding: referred for rectal prolapse but did not follow through. No history of GERD, PUD, jaundice/hepatitis, GB disease, diverticulosis, colorectal cancer, hernias. Kidney/Bladder: Denies frequency, burning. Nocturia1-4, incontinence none. ED for years. No history of kidney stones, recurrent UTI or kidney infection. Skin: denies unusual rashes. No history of skin cancer, bleeding/changing moles, or unusual skin lesions. Neurologic: See HPI. Denies recurrent ARAGON, change in vision, hearing or smell, tremors, unusual weakness, loss of sensation, or difficulty with balance or gait. No history of epilepsy/convulsions, migraine, head/spinal injuries, or stroke/TIA. Psychiatric: see HPI. Endocrine: denies unusual thirst, hunger, excessive urination, change in skin or hair texture, emotional lability. No history of thryoid, pituitary or hormonal problems. Hematologic: denies unusual bleeding, bruising, or history of anemia or blood transfusion. Infections: denies risk factors for HIV, hepatitis or history of unusual infection. Immunizations are up to date. Musculoskeletal: Chronic pain in thoracic, lumbar and hip pain. DX DDD in past. States knees are gone from work and sports. Chronic muscles aches, joint pain. No erythema or swelling. Denies recurrent sprain or disruption of joints, debilitating arthritis, gout, or other musculoskeletal disease. EXAM: BP 124/84 Pulse 95 Temp 37.3 ?C (99.1 ?F) (Tympanic) Resp 16 Ht 172.8 cm (5' 8.03) Wt 104.8 kg (231 lb) SpO2 100% BMI 35.09 kg/m2 Pleasant overweight adult male in no acute distress. Alert and oriented all spheres. Normal affect and cognition. Speech normal. No deficits to learning or comprehension. Skin warm, dry, pink to lips and nailbeds. Normal turgor. Respirations regular and unlabored. HEENT WNL. Head normocephallic atraumatic. PERRLA. EOMI. Corneal light reflex symmetric bilaterally. Gross vision intact. Able to read fine print. TM's clear. Nose and oropharynx free from injection or lesion. No cervical lymph nodes. Thyroid non-tender, no masses. Carotids 2/4+ without bruits. Chest CTA. HRRR without murmur or gallop. Abdomen: active bowel sounds throughout, soft, nontender, no masses or organomegaly. No CVAT. Extrem: no clubbing, cyanosis, edema. Extremities are warm and pink with prompt capillary refill. CN 2-12 grossly intact. No pronator drift. No hyperreflexia. No tremor or asterixis. No rigidity or cogwheeling. ASSESSMENT/PLAN: 1. Essential hypertension, benign - ICD9: 401.1, ICD10: I10 (primary diagnosis) - good control - Continue current medication(s) - Encouraged dietary sodium restriction/DASH diet - Recommended regular aerobic exercise. - Discussed cardiovascular effects of alcohol - Goal of BP <140/90 - COMP METABOLIC PANEL 2. Alcohol abuse - ICD9: 305.00, ICD10: F10.10 Urged to stop in light of epidosodic delerium/ dementia risk. Gives many excuses: I tried to focus on the importance of gainful employment, independence for travel for psychiatric wellbeing. - COMP METABOLIC PANEL - CBC + DIFF - AMMONIA BLD - LIPASE BLD - PAIN PANEL, UR QUANT - TOX SCREEN ROUT UR 3. Marijuana use - ICD9: 305.20, ICD10: F12.90 Identified the research with marijuana indicating increased risk of seizure. Needs to stop all substances and then consider baseline treatment for depression. - PAIN PANEL, UR QUANT - TOX SCREEN ROUT UR 4. Tobacco use disorder - ICD9: 305.1, ICD10: F17.200 - Cessation encouraged. - Physiologic and physical aspects of tobacco addiction as well as strategies for quitting were discussed. - Counseling was given focusing on the harmful effects of this addiction especially given the patient's medical condition(s) which will be worsened because of the chemicals in tobacco. 5. Heartburn - ICD9: 787.1, ICD10: R12 Controlled on omeprazole 6. Depression, unspecified depression type - ICD9: 311, ICD10: F32.9 As above. Patient asking for ritalin. Discussed Buproprion consideration. Discussed psychiatric evaluation for delerium. Absolutely must stop all alcohol and marijuana before I am willing to treat. 7. Transient confusion - ICD9: 298.9, ICD10: R41.0 As above. Needs to have follow up with neurology: will have nurse reschedule. - AMMONIA BLD - TSH BLD - PAIN PANEL, UR QUANT - TOX SCREEN ROUT UR 8. Pain in thoracic spine - ICD9: 724.1, ICD10: M54.6 Mechanical low back pain - Ice for localized tenderness - Warm moist heat for 20 min three times a day - NSAIDS- Mobic F/u after labs completed. M Humphrey Subramanian PA-C CNPN Observed: 09/14/2017 Status: COMPLETED Source: DERIDDER 12:00 AM [facility] REPOSITORY Telephone (FAMPWS) HANSEL GAMEZ ([id number]) 1970 M Date Time Provider Department 09/14/17 [facility] During your visit today, we recorded the following information about you: Danielle Santana RN 09/14/2017 11:59 AM Signed Landen Rob- patient's Health Surgical Coder- checks on patient weekly. Is with patient today, and patient reports he had episode of delirium on Wednesday night to Wednesday afternoon. Patient thinks he fell in the bathtub Wednesday. Reports patient is fine today, no bleed, no injuries, just a little head pain where he fell. Put patient on wait list to get appt with Suad Subramanian, sooner than 09-27-17. Landen asking office to phone him or patient if able to see him sooner. Renetta Milligan LPN 09/14/2017 2:11 PM Signed There is nothing sooner to est care with Rivas Subramanian and Landen aware of same. Danielle Subramanian PA-C 09/14/2017 2:41 PM Signed He is under Dr. Hagan: he could see Toni in the interim. Thanks, GEMA Smith LPN 09/14/2017 4:57 PM Signed Offered a sooner appt to discuss below issue but patient wants to wait until able to est care on 09/27/17 Allergies As of Date: 09/14/2017 Noted Allergy Reaction PENICILLIN G 11/27/2010 4 - Hives Date Reviewed: 08/05/2017 Reviewed by: Toni (Anastasiya) ANASTASIYA Jones - Fully Assessed Reason for Visit: Sooner appt [Other] Prescriptions as of 09/14/2017 Sig: FINASTERIDE 5 MG TABLET Take 1 tablet by mouth once d* LISINOPRIL 20 MG-HYDROCHLOROT* Take 1 tablet by mouth every * MELOXICAM 15 MG TABLET TAKE 1 TABLET EVERY DAY WITH * THIAMINE HCL (VITAMIN B1) 100* Take 1 tablet by mouth once d* TAMSULOSIN 0.4 MG CAPSULE Take 1 capsule by mouth once * MAGNESIUM OXIDE 400 MG TABLET Take 1 tablet by mouth twice * DOXYCYCLINE MONOHYDRATE 100 M* Take 1 capsule by mouth twice* OMEPRAZOLE 40 MG CAPSULE,ANDRE* Take 1 capsule by mouth once * Problem List As Of Date 09/14/2017 Noted Resolved Tobacco use disorder [F17.200] INVALID FOR* Heartburn [R12] INVALID FOR* Depressed [F32.9] INVALID FOR* Pain in thoracic spine [M54.6] INVALID FOR* Essential hypertension, benign [I10] INVALID FOR* Alcohol use [Z78.9] INVALID FOR*08/05/2017 Alcohol abuse [F10.10] INVALID FOR* Marijuana use [F12.90] INVALID FOR* Acute metabolic encephalopathy [G93.41] INVALID FOR* Encounter Status:Closed by RENETTA MILLIGAN LPN on 09/14/17 OBSOLETE Observed: 08/30/2017 Status: COMPLETED Source: DERIDDER 12:00 AM [facility] REPOSITORY Refill (FAMPWS) HANSEL GAMEZ ([id number]) 1970 M Date Time Provider Department 08/30/17 TONI JONES (CUSHION [employer]SEMBLER) FAMPWS During your visit today, we recorded the following information about you: Martine See [facility] 08/30/2017 2:17 PM Signed Patient has been identified by name and date of : Yes Pending Prescriptions Disp Refills FINASTERIDE 5 MG TABLET 30 tablet Sig: Take 1 tablet by mouth once daily. GAURI: Yes LISINOPRIL 20 MG-HYDROCHLOROTHIAZIDE 12.5 MG TABLET 30 tablet Sig: Take 1 tablet by mouth every morning. GAURI: Yes RX INSTRUCTIONS: Patient aware RX will be sent to pharmacy. No need to notify patient. Martine Hagan MD 08/30/2017 2:34 PM Signed OK to refill as ordered MD Shilpi Stephen Ma 08/30/2017 3:06 PM Signed The following approved medication requests have been transmitted electronically. Signed Prescriptions Disp Refills finasteride (PROSCAR) 5 mg tablet 30 tablet 11 Sig: Take 1 tablet by mouth once daily. GAURI: No Authorizing Provider: STACEY HAGAN lisinopril-hydrochlorothiazide (PRINZIDE,ZESTORETIC) 20-12.5 mg per tablet 30 tablet 11 Sig: Take 1 tablet by mouth every morning. GAURI: No Authorizing Provider: STACEY HAGAN Ma Allergies As of Date: 08/30/2017 Noted Allergy Reaction PENICILLIN G 11/27/2010 4 - Hives Date Reviewed: 08/05/2017 Reviewed by: Toni ([facility]) ANASTASIYA Jones - Fully Assessed Reason for Visit: Refill Request [94] Order(s):finasteride (PROSCAR) 5 mg tabletTake 1 tablet by mouth once daily.Disp: 30 tabletRfl: 11 lisinopril-hydrochlorothiazide (PRINZIDE,ZESTORETIC) 20-12.5 mg per tabletTake 1 tablet by mouth every morning.Disp: 30 tabletRfl: 11 Prescriptions as of 08/30/2017 Sig: FINASTERIDE 5 MG TABLET Take 1 tablet by mouth once d* LISINOPRIL 20 MG-HYDROCHLOROT* Take 1 tablet by mouth every * THIAMINE HCL (VITAMIN B1) 100* Take 1 tablet by mouth once d* TAMSULOSIN 0.4 MG CAPSULE Take 1 capsule by mouth once * MAGNESIUM OXIDE 400 MG TABLET Take 1 tablet by mouth twice * DOXYCYCLINE MONOHYDRATE 100 M* Take 1 capsule by mouth twice* X MELOXICAM 15 MG TABLET TAKE 1 TABLET EVERY DAY WITH * OMEPRAZOLE 40 MG CAPSULE,ANDRE* Take 1 capsule by mouth once * Problem List As Of Date 08/30/2017 Noted Resolved Tobacco use disorder [F17.200] INVALID FOR* Heartburn [R12] INVALID FOR* Depressed [F32.9] INVALID FOR* Pain in thoracic spine [M54.6] INVALID FOR* Essential hypertension, benign [I10] INVALID FOR* Alcohol use [Z78.9] INVALID FOR*08/05/2017 Alcohol abuse [F10.10] INVALID FOR* Marijuana use [F12.90] INVALID FOR* Acute metabolic encephalopathy [G93.41] INVALID FOR* Prescriptions ordered this encounter Disp Refills Start End FINASTERIDE 5 MG TABLET 30 t* 11 08/30/2017 Cmt: Med-sync patient. If too soon, we will put new RX on hold for next cycle. Sig: Take 1 tablet by mouth once daily. LISINOPRIL 20 MG-HYDROCHLOROTHIAZIDE* 30 t* 11 08/30/2017 Cmt: Med-sync patient. If too soon, we will put new RX on hold for next cycle. Sig: Take 1 tablet by mouth every morning. Medications Discontinued During This Encounter finasteride (PROSCAR) 5 mg tablet 30 t* 2 06/22/2017 08/30/2017 Route: ORAL Sig: Take 1 tablet by mouth once daily. Disc: Reason for discontinue is not on file. lisinopril-hydrochlorothiazide (PRIN* 30 t* 3 06/07/2017 08/30/2017 Route: ORAL Sig: Take 1 tablet by mouth every morning. Disc: Reason for discontinue is not on file. Encounter Status:Closed by SHILPI ARRIETA MA on 08/30/17 OBSOLETE Observed: 08/30/2017 Status: COMPLETED Source: DERIDDER 12:00 AM [facility] REPOSITORY Refill (FAMPWS) HANSEL GAMEZ ([id number]) 1970 M Date Time Provider Department 08/30/17 [facility] During your visit today, we recorded the following information about you: Stacey Hagan MD 08/30/2017 2:35 PM Signed OK to refill as ordered MD Shilpi Stephen Ma 08/30/2017 3:07 PM Signed The following approved medication requests have been transmitted electronically. Signed Prescriptions Disp Refills meloxicam (MOBIC) 15 mg tablet 30 tablet 11 Sig: TAKE 1 TABLET EVERY DAY WITH FOOD NEEDED FOR PAIN GAURI: No Authorizing Provider: STACEY HAGAN Ma Allergies As of Date: 08/30/2017 Noted Allergy Reaction PENICILLIN G 11/27/2010 4 - Hives Date Reviewed: 08/05/2017 Reviewed by: Toni ([employer]) ANASTASIYA Jones - Fully Assessed Reason for Visit: Refill Request [94] Order(s):meloxicam (MOBIC) 15 mg tabletTAKE 1 TABLET EVERY DAY WITH FOOD NEEDED FOR PAINDisp: 30 tabletRfl: 11 Prescriptions as of 08/30/2017 Sig: MELOXICAM 15 MG TABLET TAKE 1 TABLET EVERY DAY WITH * FINASTERIDE 5 MG TABLET Take 1 tablet by mouth once d* LISINOPRIL 20 MG-HYDROCHLOROT* Take 1 tablet by mouth every * THIAMINE HCL (VITAMIN B1) 100* Take 1 tablet by mouth once d* TAMSULOSIN 0.4 MG CAPSULE Take 1 capsule by mouth once * MAGNESIUM OXIDE 400 MG TABLET Take 1 tablet by mouth twice * DOXYCYCLINE MONOHYDRATE 100 M* Take 1 capsule by mouth twice* X FINASTERIDE 5 MG TABLET Take 1 tablet by mouth once d* X LISINOPRIL 20 MG-HYDROCHLOROT* Take 1 tablet by mouth every * OMEPRAZOLE 40 MG CAPSULE,ANDRE* Take 1 capsule by mouth once * Problem List As Of Date 08/30/2017 Noted Resolved Tobacco use disorder [F17.200] INVALID FOR* Heartburn [R12] INVALID FOR* Depressed [F32.9] INVALID FOR* Pain in thoracic spine [M54.6] INVALID FOR* Essential hypertension, benign [I10] INVALID FOR* Alcohol use [Z78.9] INVALID FOR*08/05/2017 Alcohol abuse [F10.10] INVALID FOR* Marijuana use [F12.90] INVALID FOR* Acute metabolic encephalopathy [G93.41] INVALID FOR* Prescriptions ordered this encounter Disp Refills Start End MELOXICAM 15 MG TABLET 30 t* 11 08/30/2017 Cmt: Med-sync patient. If too soon, we will put new RX on hold for next cycle. Sig: TAKE 1 TABLET EVERY DAY WITH FOOD NEEDED FOR PAIN Medications Discontinued During This Encounter meloxicam (MOBIC) 15 mg tablet 30 t* 2 05/31/2017 08/30/2017 Cmt: Med-sync patient. If too soon, we will put new RX on hold for next cycle. Sig: TAKE 1 TABLET EVERY DAY WITH FOOD NEEDED FOR PAIN Disc: Reason for discontinue is not on file. Encounter Status:Closed by SHILPI ARRIETA MA on 08/30/17 CBC AND DIFFERENTIAL Collected: 08/06/2017 Status: F Source: DERIDDER 11:33 AM [facility] [facility] REPOSITORY TYPE CODE TESTS RESULT OUT OF REFERENCE UNITS RANGE LAB WBC 3.70-11.00 k/uL WBC 7.29 LAB RBC 4.20-6.00 m/uL Low RBC 3.90 LAB HGB 13.0-17.0 g/dL Low Hemoglobin 11.7 LAB HCT 39.0-51.0 % Low Hematocrit 37.8 LAB MCV 80.0-100.0 fL MCV 96.9 LAB MCH 26.0-34.0 pG MCH 30.0 LAB MCHC 30.5-36.0 g/dL MCHC 31.0 LAB RDWCV 11.5-15.0 % RDW-CV 14.0 LAB PLTCT 150-400 k/uL Platelet High Count 406 LAB MPV 9.0-12.7 fL MPV 9.5 LAB ANEUT % Neut% 57.6 LAB AANEUT 1.45-7.50 k/uL Abs Neut 4.20 LAB ALYMP % Lymph% 27.0 LAB AALYMP 1.00-4.00 k/uL Abs Lymph 1.97 LAB AMONO % [place]% 9.2 LAB AAMONO <0.87 k/uL Abs [place] 0.67 LAB AEOS % Eosin% 4.8 LAB AAEOS <0.46 k/uL Abs Eosin 0.35 LAB ABASO % Baso% 1.4 LAB AABASO <0.11 k/uL Abs Baso 0.10 LAB AUNRBC 0 /100 WBC NRBCs 0.0 LAB ABNRBC <0.01 k/uL Absolute nRBC <0.01 LAB DTYP DTYPE Auto Diff Performed By: #### CBCDIF, HFP, NH3, SERFOL #### [facility] [address] [place], [place] [address] #### VITB6, B1VIT #### [facility] [address] [place] [address] [phone] HEPATIC FUNCTN PANEL Collected: 08/06/2017 Status: F Source: DERIDDER 11:33 AM [facility] REPOSITORY TYPE CODE TESTS RESULT OUT OF REFERENCE UNITS RANGE LAB ALB 3.9-4.9 g/dL Albumin 4.6 LAB TBIL 0.2-1.3 mg/dL Bilirubin, Total 0.4 LAB CBIL <0.2 mg/dL Bilirubin,Conjuga <0.2 rossy LAB ALKP 36-108 U/L Alkaline Phosphatase 85 LAB AST 14-40 U/L AST 25 LAB ALT 10-54 U/L ALT 22 LAB TP 6.3-8.0 g/dL Protein, Total 7.6 Performed By: #### CBCDIF, HFP, NH3, SERFOL #### [place] [address] #### VITB6, B1VIT #### [facility] [address] [address] [phone] AMMONIA Collected: 08/06/2017 Status: F Source: DERIDDER 11:33 AM [facility] REPOSITORY TYPE CODE TESTS RESULT OUT OF REFERENCE UNITS RANGE LAB NH3 17-47 umol/L Ammonia 27 Performed By: #### CBCDIF, HFP, NH3, SERFOL #### [place] [address] [place] [address] #### VITB6, B1VIT #### [facility] [address] [place] [phone] FOLATE, SERUM Collected: 08/06/2017 Status: F Source: DERIDDER 11:33 [facility] REPOSITORY TYPE CODE TESTS RESULT OUT OF REFERENCE UNITS RANGE LAB SERFOL >4.7 ng/mL Folate, 15.6 Serum Performed By: #### CBCDIF, HFP, NH3, SERFOL #### [facility] [address] [place] [address] #### VITB6, B1VIT #### [facility] [address] [place] [address] [phone] VITAMIN B6 PLASMA Collected: 08/06/2017 Status: F Source: DERIDDER 11:33 AM [facility] REPOSITORY TYPE CODE TESTS RESULT OUT OF REFERENCE UNITS RANGE LAB VITB6 20.0-125.0 nmol/L Vitamin B6 32.5 Plasma Result Comment: (NOTE) INTERPRETIVE INFORMATION: Vitamin B6 (Pyridoxal 5-Phosphate) Pyridoxal 5'-phosphate measured in a specimen collected following an 8-hour or overnight fast accurately indicates vitamin B6 nutritional status. Non-fasting specimen concentration reflects recent vitamin intake. Test developed and characteristics determined by [employer]. See Compliance Statement B: [employer] Performed by [employer], [address] [place] [id number] [email or web address], Serge Duran MD, Lab. Director Performed By: #### CBCDIF, HFP, NH3, SERFOL #### [facility] [employer] [facility] [place] [address] #### VITB6, B1VIT #### [employer] [address] [place] [address] [phone] VITAMIN B1,WHOLE BLD Collected: 08/06/2017 Status: F Source: DERIDDER 11:33 AM [facility] REPOSITORY TYPE CODE TESTS RESULT OUT OF REFERENCE UNITS RANGE LAB VITB1 70-180 nmol/L Low Vitamin B1 28 Whole Bld Result Comment: (NOTE) INTERPRETIVE INFORMATION: Vitamin B1, Whole Blood This assay measures the concentration of thiamine diphosphate (TDP), the primary active form of vitamin B1. Approximately 90 percent of vitamin B1 present in whole blood is TDP. Thiamine and thiamine monophosphate, which comprise the remaining 10 percent, are not measured. Test developed and characteristics determined by [employer]. See Compliance Statement B: [employer] Performed by [employer], [address] [place] [id number] [email or web address], Serge Duran MD, Lab. Director Performed By: #### CBCDIF, HFP, NH3, SERFOL #### [facility] [employer] [address] [place] [address] #### VITB6, B1VIT #### [facility] [address] [place] [address] [phone] CNOV Observed: 08/05/2017 Status: COMPLETED Source: DERIDDER 3:00 PM [facility] REPOSITORY Office Visit (FAMPWS) HANSEL GAMEZ ([id number]) 1970 M Date Time Provider Department 08/05/17 3:00 PM TONI JONES (ANASTASIYA) FAMPWS During your visit today, we recorded the following information about you: Temperature Pulse Blood pressure Weight 99.2 degrees 102/minute 134/86 101.2 kg Toni Jones CNP, CNP 08/05/2017 3:41 PM Addendum Chief Complaint Patient presents with: Hospital Follow Up: seen for elizabeth dubon several months ago, LIZZETH Jimenes Ivan is a 46 year old male who presents here today for Above Complaints.. Patient present to the office for hospital follow up. Patient was admitted from 06/29/2017 to 06/30/2017 for acute metabolic encephalopathy. Medical history is documented below and includes alcohol abuse, marijuana use and depression. Patient was having intermittent periods of delirium. Lumbar puncture was performed in the ER, which was unremarkable. Patient was admitted for his confusion. Labs showed elevated ammonia level present, which slowly improved to normal level. It is thought that his confusion is related to hyperammoniemia. MRI, CT of his brain was performed and was normal. Left AMA prior to getting a RUQ US performed. Ordered by Dr. Hagan after discharge, which showed mild fatty liver. Since his discharge, the patient is doing okay. Patient has had a few periods of confusion since discharge. States that he cannot remember when he goes into these episodes of confusion. States that the other day, he was flushing jessica cups down the toilet. Usually lasts 7-8 hours and then slowly comes out of the episodes. States that he has slowly decreased alcohol intake. Last drink was Wednesday. Had 4 beers on that day. Used marijuana two weeks ago. Denies any other illicit drug use. Patient states that other than the periods of delirium, he feels fine. No chest pain, shortness of breath, fevers, chills, leg swelling, dizziness, or syncope. Patient is accompanied by niece, who has witnessed these episodes. States that the patient does not slur his speech during these episodes. Does not notice any abnormal body movements. Does not loose control of his bowels or bladder during these episodes. Past medical history, appointments, medications, allergies reviewed. Previous Medical History PAST MEDICAL HISTORY Diagnosis Date - Alcohol abuse - Anxiety - Depression - Marijuana use Previous Surgical History No past surgical history on file. Family History FAMILY HISTORY Problem Relation Age of Onset - Other [OTHER] Father heart issues, heart attack - Diabetes Sister older sister Patient Allergies ALLERGIES Allergen Reactions - Penicillin G Hives Current Medications Current Outpatient Prescriptions on File Prior to Visit: tamsulosin ER (FLOMAX) 0.4 mg cp24 Take 1 capsule by mouth once daily. magnesium oxide (MAG-OX) 400 mg tablet Take 1 tablet by mouth twice daily. finasteride (PROSCAR) 5 mg tablet Take 1 tablet by mouth once daily. doxycycline monohydrate (MONODOX) 100 mg capsule Take 1 capsule by mouth twice daily. lisinopril-hydrochlorothiazide (PRINZIDE,ZESTORETIC) 20-12.5 mg per tablet Take 1 tablet by mouth every morning. meloxicam (MOBIC) 15 mg tablet TAKE 1 TABLET EVERY DAY WITH FOOD NEEDED FOR PAIN Omeprazole 40 mg capsule Take 1 capsule by mouth once daily. No current facility-administered medications on file prior to visit. Social History Social History Marital status: Spouse name: Years of education: Number of children: Social History Main Topics Smoking status: Current Every Day Smoker Packs/day: 1.00 Years: 25.00 Smokeless status: Never Used Alcohol use: Yes 9.0 oz/week 6 Cans of Beer (12oz) per week Drug use: Yes Special: Marijuana REVIEW OF SYSTEMS: as above ? Reviewed relevant PMHx, PSHx, Social Hx, current medications and allergies. EXAM: BP 134/86 Pulse 102 Temp 37.3 ?C (99.2 ?F) (Tympanic) Wt 101.2 kg (223 lb) General Appearance: Well appearing, alert, in no acute distress, well-hydrated, well nourished.. Head: Normocephalic, no masses, lesions, tenderness or abnormalities. Eyes: Anicteric sclera. Pupils are equally round and reactive to light. Extraocular movements are intact. . Oropharynx: Lips, mucosa, and tongue normal, teeth and gums normal, oropharynx normal. Lungs: Lungs clear to auscultation. No wheezing, rhonchi, rales. Heart: RRR without murmur, gallop, or rubs. No ectopy. Abdomen: Normal abdominal exam, Abdomen soft, non-tender. Bowel sounds normal. No masses, organomegaly. Neurologic: Gait normal. Reflexes normal and symmetric. Sensation grossly intact, +2/4 patellar, brachial reflexes, smile is symmetrical, tongue is midline, finger to nose testing is normal, heal to hernandez testing is normal, proprioception is intact. Health Maintenance List DIABETES SCREEN due on 11/03/2019 LIPID SCREEN due on 11/02/2021 TETANUS due on 12/19/2023 ONE PNEUMOVAX PRIOR TO AGE 65 Completed INFLUENZA Completed Data reviewed [facility] ER note ASSESSMENT/PLAN: 1. Delirium - ICD9: 780.09, ICD10: R41.0 (primary diagnosis) - Will recheck thiamine levels for Wernicke's Encephalopathy. Consult neurology for these transient periods of delirium. - FOLATE SERUM - VITAMIN B6/PYRIDOXIN - VITAMIN B1/THIAMINE, WHOLE BLD - AMMONIA BLD - CONSULT TO NEUROLOGY 2. Elevated liver enzymes - ICD9: 790.5, ICD10: R74.8 - Elevated at [facility], will recheck, known fatty liver disease. - HEPATIC FUNCTION PNL 3. Alcohol abuse - ICD9: 305.00, ICD10: F10.10 - Will check baseline labs, vitamins for deficiency. - FOLATE SERUM - VITAMIN B6/PYRIDOXIN - VITAMIN B1/THIAMINE, WHOLE BLD - AMMONIA BLD - CBC + DIFF - HEPATIC FUNCTION PNL 4. Alcohol use - ICD9: V49.89, ICD10: Z78.9 - Advised to decrease alcohol use slowly. 5. Marijuana use - ICD9: 305.20, ICD10: F12.90 - Advised to stop use of marijuana or illicit drugs. 6. Acute metabolic encephalopathy - ICD9: 348.31, ICD10: G93.41 - See above. Follow up based on testing. Will consult GI depending on results of labs. Advised ER if he experiences confusion again. Toni Jones CNP Referring Provider: STACEY HAGAN [[id number]] Allergies As of Date: 08/05/2017 Noted Allergy Reaction PENICILLIN G 11/27/2010 4 - Hives Date Reviewed: 08/05/2017 Reviewed by: Toni (Anastasiya) ANASTASIYA Jones - Fully Assessed Reason for Visit: Hospital Follow Up [177] Cmt: seen for delerium, stopped prozac several months ago, Primary Visit Diagnosis:Delirium [R41.0] Other Visit Diagnoses:Elevated liver enzymes [R74.8] Alcohol abuse [F10.10] Alcohol use [Z78.9] Marijuana use [F12.90] Acute metabolic encephalopathy [G93.41] Order(s):FOLATE SERUM [SQSERFOL] Order #: [id number] FUTURE VITAMIN B6/PYRIDOXIN [SQVITB6] Order #: [id number] FUTURE VITAMIN B1/THIAMINE, WHOLE BLD [MWV1BSY] Order #: [id number] FUTURE AMMONIA BLD [SQNH3] Order #: [id number] FUTURE CBC + DIFF [SQCBCDIF] Order #: [id number] FUTURE HEPATIC FUNCTION PNL [SQHFP] Order #: [id number] FUTURE CONSULT TO NEUROLOGY [9009] Order #: [id number]: 1 Prescriptions as of 08/05/2017 Sig: TAMSULOSIN 0.4 MG CAPSULE Take 1 capsule by mouth once * FINASTERIDE 5 MG TABLET Take 1 tablet by mouth once d* DOXYCYCLINE MONOHYDRATE 100 M* Take 1 capsule by mouth twice* LISINOPRIL 20 MG-HYDROCHLOROT* Take 1 tablet by mouth every * MELOXICAM 15 MG TABLET TAKE 1 TABLET EVERY DAY WITH * OMEPRAZOLE 40 MG CAPSULE,ANDRE* Take 1 capsule by mouth once * MAGNESIUM OXIDE 400 MG TABLET Take 1 tablet by mouth twice * Medication notes this encounter MAGNESIUM OXIDE 400 MG TABLET >> Frederic Henderson MA 08/05/2017 3:00 PM >> FREDERIC HENDERSON MA Sarahy Aug 05, 2017 3:00 PM Not currently taking Problem List As Of Date 08/05/2017 Noted Resolved Tobacco use disorder [F17.200] INVALID FOR* Heartburn [R12] INVALID FOR* Depressed [F32.9] INVALID FOR* Pain in thoracic spine [M54.6] INVALID FOR* Essential hypertension, benign [I10] INVALID FOR* Alcohol use [Z78.9] INVALID FOR*08/05/2017 Alcohol abuse [F10.10] INVALID FOR* Marijuana use [F12.90] INVALID FOR* Acute metabolic encephalopathy [G93.41] INVALID FOR* Disposition: Return if symptoms worsen or fail to improve. Follow-up and Disposition History Recorded Encounter Status:Closed by TONI JONES CNP on 08/05/17 PROGRESS Observed: 08/05/2017 Status: COMPLETED Source: [place] 2:59 PM [facility] REPOSITORY HNO ID: [id number] Author: Toni (Anastasiya) ANASTASIYA Jones Service: (none) Author Type: Nurse Practitioner Type: Progress Notes Filed: 08/05/2017 3:41 PM Note Text: Chief Complaint Patient presents with: Hospital Follow Up: seen for jagdish, elizabeth prozac several months ago, [facility] Hansel Gamez is a 46 year old male who presents here today for Above Complaints.. Patient present to the office for hospital follow up. Patient was admitted from 06/29/2017 to 06/30/2017 for acute metabolic encephalopathy. Medical history is documented below and includes alcohol abuse, marijuana use and depression. Patient was having intermittent periods of delirium. Lumbar puncture was performed in the ER, which was unremarkable. Patient was admitted for his confusion. Labs showed elevated ammonia level present, which slowly improved to normal level. It is thought that his confusion is related to hyperammoniemia. MRI, CT of his brain was performed and was normal. Left AMA prior to getting a RUQ US performed. Ordered by Dr. Hagan after discharge, which showed mild fatty liver. Since his discharge, the patient is doing okay. Patient has had a few periods of confusion since discharge. States that he cannot remember when he goes into these episodes of confusion. States that the other day, he was flushing jessica cups down the toilet. Usually lasts 7- 8 hours and then slowly comes out of the episodes. States that he has slowly decreased alcohol intake. Last drink was Wednesday. Had 4 beers on that day. Used marijuana two weeks ago. Denies any other illicit drug use. Patient states that other than the periods of delirium, he feels fine. No chest pain, shortness of breath, fevers, chills, leg swelling, dizziness, or syncope. Patient is accompanied by niece, who has witnessed these episodes. States that the patient does not slur his speech during these episodes. Does not notice any abnormal body movements. Does not loose control of his bowels or bladder during these episodes. Past medical history, appointments, medications, allergies reviewed. Previous Medical History PAST MEDICAL HISTORY Diagnosis Date - Alcohol abuse - Anxiety - Depression - Marijuana use Previous Surgical History No past surgical history on file. Family History FAMILY HISTORY Problem Relation Age of Onset - Other [OTHER] Father heart issues, heart attack - Diabetes Sister older sister Patient Allergies ALLERGIES Allergen Reactions - Penicillin G Hives Current Medications Current Outpatient Prescriptions on File Prior to Visit: tamsulosin ER (FLOMAX) 0.4 mg cp24 Take 1 capsule by mouth once daily. magnesium oxide (MAG-OX) 400 mg tablet Take 1 tablet by mouth twice daily. finasteride (PROSCAR) 5 mg tablet Take 1 tablet by mouth once daily. doxycycline monohydrate (MONODOX) 100 mg capsule Take 1 capsule by mouth twice daily. lisinopril-hydrochlorothiazide (PRINZIDE,ZESTORETIC) 20-12.5 mg per tablet Take 1 tablet by mouth every morning. meloxicam (MOBIC) 15 mg tablet TAKE 1 TABLET EVERY DAY WITH FOOD NEEDED FOR PAIN Omeprazole 40 mg capsule Take 1 capsule by mouth once daily. No current facility-administered medications on file prior to visit. Social History Social History Marital status: Spouse name: Years of education: Number of children: Social History Main Topics Smoking status: Current Every Day Smoker Packs/day: 1.00 Years: 25.00 Smokeless status: Never Used Alcohol use: Yes 9.0 oz/week 6 Cans of Beer (12oz) per week Drug use: Yes Special: Marijuana REVIEW OF SYSTEMS: as above ? Reviewed relevant PMHx, PSHx, Social Hx, current medications and allergies. EXAM: BP 134/86 Pulse 102 Temp 37.3 ?C (99.2 ?F) (Tympanic) Wt 101.2 kg (223 lb) General Appearance: Well appearing, alert, in no acute distress, well-hydrated, well nourished.. Head: Normocephalic, no masses, lesions, tenderness or abnormalities. Eyes: Anicteric sclera. Pupils are equally round and reactive to light. Extraocular movements are intact. . Oropharynx: Lips, mucosa, and tongue normal, teeth and gums normal, oropharynx normal. Lungs: Lungs clear to auscultation. No wheezing, rhonchi, rales. Heart: RRR without murmur, gallop, or rubs. No ectopy. Abdomen: Normal abdominal exam, Abdomen soft, non-tender. Bowel sounds normal. No masses, organomegaly. Neurologic: Gait normal. Reflexes normal and symmetric. Sensation grossly intact, +2/4 patellar, brachial reflexes, smile is symmetrical, tongue is midline, finger to nose testing is normal, heal to hernandez testing is normal, proprioception is intact. Health Maintenance List DIABETES SCREEN due on 11/03/2019 LIPID SCREEN due on 11/02/2021 TETANUS due on 12/19/2023 ONE PNEUMOVAX PRIOR TO AGE 65 Completed INFLUENZA Completed Data reviewed [facility] ER note ASSESSMENT/PLAN: 1. Delirium - ICD9: 780.09, ICD10: R41.0 (primary diagnosis) - Will recheck thiamine levels for Wernicke's Encephalopathy. Consult neurology for these transient periods of delirium. - FOLATE SERUM - VITAMIN B6/PYRIDOXIN - VITAMIN B1/THIAMINE, WHOLE BLD - AMMONIA BLD - CONSULT TO NEUROLOGY 2. Elevated liver enzymes - ICD9: 790.5, ICD10: R74.8 - Elevated at [facility], will recheck, known fatty liver disease. - HEPATIC FUNCTION PNL 3. Alcohol abuse - ICD9: 305.00, ICD10: F10.10 - Will check baseline labs, vitamins for deficiency. - FOLATE SERUM - VITAMIN B6/PYRIDOXIN - VITAMIN B1/THIAMINE, WHOLE BLD - AMMONIA BLD - CBC + DIFF - HEPATIC FUNCTION PNL 4. Alcohol use - ICD9: V49.89, ICD10: Z78.9 - Advised to decrease alcohol use slowly. 5. Marijuana use - ICD9: 305.20, ICD10: F12.90 - Advised to stop use of marijuana or illicit drugs. 6. Acute metabolic encephalopathy - ICD9: 348.31, ICD10: G93.41 - See above. Follow up based on testing. Will consult GI depending on results of labs. Advised ER if he experiences confusion again. Toni Jones CNP EMERGENCY DEPARTMENT Observed: 06/29/2017 Status: F Source: DES SUMMARY 12:00 PM [facility] REPOSITORY Medical Records Department [address] [place] [address] Emergency Department Summary 06/29/17 0659 MR#: [id number] Acct: [id number] Name: HANSEL GAMEZ Rep #: [id number] : 1970 46 From: Michael Srivastava MD PCP: Twan ANSARI,Stacey Status: REG ER ADDENDUM by Ti Morse MD on 06/29/17 at 1200 The patient was checked out to me with labs and CT pending. Chest x-ray has returned and shows mild cardiomegaly. CT brain is returned shows bilateral maxillary and ethmoid sinusitis. EKG is sinus with no ischemic changes. CBC is marked for an H AND H 11.0 and 32.3, monocytes of 11. Chem-7 is more for chloride of 109, CO2 of 19, calcium 7.8. Blood alcohol level is 9. CSF shows 2 white blood cells and no red blood cells. Glucose is a 55 and protein is 35. LFTs are normal. Emergency department course: The patient remained very confused and combative. He is clearly having visual hallucinations and has a delirium clinically. He was treated with Ativan IV. When CT was shunt returned and showed sinusitis he was given a dose of Rocephin IV. He was given thiamine and a multivitamin IV. I did discuss the family possibility of encephalitis. They consented to a lumbar puncture. He was given ketamine and Versed for the procedure. He tolerated this well. Treatment plan: This is the patient's third presentation with an acute delirium. The prior to he had serotonin syndrome. He is on no antidepressants at this time. I do not have an explanation for his delirium. I feel that he requires admission for further evaluation and treatment. Disposition: Noted in serious condition. Impression: 1. Acute delirium. 2. Lumbar puncture by ED physician. 3. Procedural sedation. 4. Sinusitis. 5. History of alcoholism. Procedure note: The back was cleansed with Betadine. It was then anesthetized with 1% lidocaine without epinephrine. With the patient laying on his left side the L3-L4 disc space was entered on the first attempt. Opening pressure was 18. 4 mL of clear colorless fluid was obtained. The patient tolerated it well. This note was generated with Dragon dictation software. It may contain incorrect words, spelling, and punctuation that were not noted in review of the chart prior to signing. Date Ti Morse MD cc: Stacey Hagan MD * Signed - ER Visit Summary Date of Service: 06/29/17 Chief Complaint: Confusion History of Present Illness: The patient is a 46 M with history of daily alcohol abuse presents to the emergency department with confusion. The patient was recently admitted twice for suspected serotonin syndrome. The first admission he was on high-dose Prozac. This was stopped. The patient was then on amitriptyline and another SSRI. He was admitted just about 2 weeks ago. The patient did have resolution of symptoms with high-dose benzodiazepines and withdrawal of his medications. He has been off all of his psychiatric medications. Mother states that he was in his normal state of health, but this morning he was confabulating speech and was very confused. He does drink daily. The patient gives no history. Physical Examination: Hyper alert. Patient does follow some commands. He moves all extremities. There is no rigidity or cogwheeling. There is no nystagmus. Head is normocephalic. Neck is supple. Heart regular rate and rhythm. Lungs clear. Abdomen soft. Test Results: [] Emergency Department Course and Treatment: The patient presents with delirium. There was no rigidity. He is not febrile. He is on no serotonin reuptake inhibitors. His exam does wax and wane. The patient will undergo metabolic evaluation and further workup. He was given Ativan. Am unsure if this is an acute delirium because of medication, alcohol abuse, or other organic cause. Disposition will be completed when workup is finished. The patient will be signed out to oncoming physician. Treatment Plan: [] Disposition: Pending Impression: 1. Delirium This note was generated with PPTVon dictation software. It may contain incorrect words, spelling, and punctuation that were not noted in review of the chart prior to signing ED Disposition - Plan for ED Patient: Chief Complaint: Alt LOC Referrals: Stacey Hagan MD [Primary Care Provider] - What to do if you have Problems For any increased pain, shortness of breath, bleeding, nausea or vomiting, chest pain, or any unexpected problems, contact your Primary Care Provider. Call [facility] ([phone]) or report to the closest Emergency Room. Call 911 if necessary. 06/29/17 0732 <Electronically signed by Michael Srivastava MD> Date Michael Srivastava MD Cosigner Signature (If Indicated): Date CC: Stacey Hagan MD CBC W/DIFF, AUTOMATED Collected: 06/29/2017 Status: F Source: [place] 7:29 AM [facility] REPOSITORY TYPE CODE TESTS RESULT OUT OF RANGE REFERENCE UNITS LAB L100.1000 4.4-11.0 K/mm3 Normal WBC 4.4 LAB L100.1200 4.6-6.2 M/mm3 Low RBC 3.57 LAB L100.1300 13.0-16.5 g/dl Low HGB 11.0 LAB L100.1400 40-54 % Low HCT 33.3 LAB L100.1500 80-94 fL Normal MCV 93.3 LAB L100.1600 27.0-32.0 pg Normal MCH 30.8 LAB L100.1700 32-36 g/gl Normal MCHC 33.0 LAB L100.1810 11.6-14.6 % High RDW CV 14.7 LAB L100.1820 35.1-43.9 fl High RDW SD 48.2 LAB L100.1900 150-450 K/mm3 Normal PLT 412 LAB L100.2000 6.2-12.0 fl Normal MPV 8.6 LAB L100.2100 47-70 % Normal NEUT% 55.6 LAB L100.2200 19-41 % Normal LY% 29.7 LAB L100.2300 0-10 % High MONO% 10.6 LAB L100.2400 0-5 % Normal EO% 2.5 LAB L100.2500 0-1 % High BASO% 1.4 LAB L100.2550 0.0-0.9 % Normal IM GRAN % 0.200 Result Comment: IG% - Immature Granulocytes (promyelocytes, myelocytes and metamyelocytes) > 1% indicates that a LEFT SHIFT is Present. LAB L100.2620 2.0-7.7 X10 3/uL Normal Absolute Neut 2.4 LAB L100.2720 0.83-4.51 X10 3/ul Normal Absolute Lymph 1.29 Performed By: #### L100.0100 #### [facility] [address] [place], [address] ALCOHOL, BLOOD Collected: 06/29/2017 Status: F Source: [place] (MEDICAL)-SERUM 7:29 AM [facility] REPOSITORY TYPE CODE TESTS RESULT OUT OF RANGE REFERENCE UNITS LAB L501.9100 mg/dL Normal SERUM 9.0 ETOH Result Comment: The serum:whole blood ethanol ratio is approximately 1.14 and varies slightly with hematocrit. Medical Alcohol reference interval and critical value in non-tolerant individuals; 50 - 100 Impairment 100 Intoxication 100 - 250 Severe Poisoning 250 - 400 Deep/possible fatal coma Performed By: #### L501.9100 #### [facility] [address] [place], [place], [address] COMPREHENSIVE METABOLIC Collected: 06/29/2017 Status: F Source: [place] 7:29 AM [facility] REPOSITORY TYPE CODE TESTS RESULT OUT OF RANGE REFERENCE UNITS LAB L501.0100 70-110 mg/dL Normal GLU 98 LAB L501.1000 7-18 mg/dL Normal BUN 12 LAB L501.1100 0.70-1.30 mg/dL Normal 1.05 CREAT,SERUM Result Comment: The validity of the calculated GFR AND GFRAA in patients over 70 years has not been determined. Clinical correlation is essential. LAB L501.1110 >60 mL/min Normal EST GFR 80 Result Comment: Non- GFR Calc LAB L501.1115 >60 mL/min Normal EST GFR - AA 97 Result Comment: GFR Calc LAB L501.1255 ml/min Normal Estimated CRCL 89.80 LAB L501.1300 10-20 RATIO Normal BUN/CRE 11.4 LAB L501.1500 6.4-8. g/dL Normal 2 T PROT 7.6 LAB L501.1800 3.4-5. g/dL Normal 0 ALB 3.6 Result Comment: Please note revised Albumin AND Globulin reference range effective 2017. LAB L501.1950 2.2-4.2 g/dL Normal GLOB 4.0 LAB L501.2000 0.9-2.4 RATIO Normal A/G 0.9 LAB L501.2200 8.5-10.1 mg/dL Low CA 7.8 LAB L501.4100 15-37 U/L Normal AST 32 Result Comment: Slight Hemolysis, Result may be falsely increased. LAB L501.4305 45-117 U/L Normal ALK P 100 LAB L501.4405 12-78 U/L Normal ALT 27 LAB L501.4600 0.20-1.00 mg/dL Normal T BILI 0.20 LAB L501.5300 136-145 mmol/L Normal NA 144 LAB L501.5600 3.5-5.1 mmol/L Normal K 3.8 Result Comment: Slight Hemolysis, Result may be falsely increased. LAB L501.5900 98-107 mmol/L High CL 109 LAB L501.6100 21.0-32.0 mmol/L Low CO2 19.0 LAB L501.6200 5-15 High GAP 16 Performed By: #### L500.4050 #### [facility] [place], [address] ALLERGIES ALLERGIES DATE TYPE / CODE NAME / CODE REACTION SEVERITY SOURCE 07/14/2018 Drug Penicillins/F0010 Unknown Unknown Des Allergy/416 79078(RXNORM) [facility] 011423([facility] ED CT) Repository 07/14/2018 Drug fluoxetine/D83534 Other Unknown Des Allergy/416 4613(RXNORM) [facility] 038364([facility] ED CT) Repository 05/28/2017 Drug Penicillins/F0010 Unknown Des Allergy/416 81783(RXNORM) [facility] 182851([facility] ED CT) Repository 11/27/2010 DRUG PENICILLIN G HIVES [facility] INGREDI/[address] 921811([facility] ED CT) ENCOUNTERS ENCOUNTERS ADMIT/DISCHARGE ACCOUNT ADMITTING ENCOUNTER LOCATION SOURCE NUMBER CLASS 07/14/2018/07/14/20 [id number] Ambulatory BMSBuilding:[facility] [place] [facility] [place].Critical access hospital Repository 07/05/2018 [id number] Ambulatory [facility] Hospital ing:MFPLAB Repository 06/16/2018/06/16/20 [id number] Ambulatory BMSBuilding:[facility] [place] [facility].Critical access hospital Repository 06/02/2018/06/02/20 [id number] Ambulatory BMSBuilding:[facility] [place] [facility] [place].Critical access hospital Repository 05/30/2018/06/01/20 [id number] Chuck Yanes Inpatient [address] ing:AS4Czhn: Repository ZY540Rcu: 1 05/30/2018 [id number] Joaquín Chuck Ambulatory BMSBuilding:[facility] [place].[facility].Critical access hospital Repository 05/30/2018/06/01/20 [id number] Ambulatory BMSBuilding:[facility] [place] [facility] [place].[facility].Critical access hospital Repository 05/30/2018 [id number] Ambulatory BMSBuilding:W [facility] Repository 05/30/2018/05/30/20 [id number] Ambulatory BMSBuilding:[facility] [place] [address] [place].Critical access hospital Repository 05/29/2018/05/29/20 [id number] Emergency [address] Hospital ing:ED Repository 02/25/2018 [id number] Ambulatory [facility] Hospital ing:MFPLAB Repository 01/04/2018/01/05/20 [id number] Ambulatory BMSBuilding:[facility] [place] [facility] [place].Critical access hospital Repository 12/23/2017 [id number] Ambulatory [facility] Hospital ing:MFPLAB Repository 12/03/2017 [id number] Ambulatory [facility] Hospital ing:MFPLAB Repository 11/04/2017 [id number] Ambulatory [facility] Hospital ing:LAB Repository 09/27/2017/09/27/19 [id number] Ambulatory [address] Repository 09/27/2017/09/28/19 [id number] Ambulatory [address] Repository 08/06/2017/08/06/20 [id number] Ambulatory [address] Repository 08/05/2017/08/06/20 [id number] Ambulatory [address] Repository 06/29/2017/06/30/20 [id number] Remington Luque Inpatient [place] [address] Encounter [facility] ing:OC5Xmml: Repository GZ296Uts: 1 PAYERS PAYERS ENCOUNTER GUARANTOR PAYER SUBSCRIBER SOURCE 07/14/2018 HANSEL GAMEZ Primary HANSEL S IVAN [address]oster Jr[address] Insurance:CARESOURCEP Jr.: [facility] [place]: [id number] [id number] Repository 28026Zyx: ([phone]) Date:2018-06-16P O [phone] () [address]ATTN: [place] [address]YX: 07/14/2018 Secondary NOT GIVENUNK [place] Insurance:SELF PAY [facility] Number: Effective Repository Date:2018-07-14 07/05/2018 HANSEL GAMEZ Primary HANSEL S GAMEZ Des Jr[address] G[address] Insurance:CARESOURCEP Jr.: [facility] NATHANIELZELALEMDAVY [facility] Number: [id number], [place] [id number] Repository [address]Wok: ([phone]) Date:2018-07-05P O [phone] () [address]ATTN: [place] [address]GU: 07/05/2018 Secondary NOT GIVENUNK [place] Insurance:SELF PAY [facility] Number: Effective Repository Date:2018-07-05 06/16/2018 HANSEL S IVAN Primary HANSEL S IVAN [address]oster Jr[address] G[address] Insurance:CARESOURCEP Jr[facility] Number: [id number], [place] [id number] Repository [address]Fng: ([phone]) Date:2018-06-02P O [phone] () [address]ATTN: [place] [address]HW: 06/16/2018 Secondary NOT GIVENUNK Des Insurance:SELF PAY [facility] Number: Effective Repository Date:2018-06-16 06/02/2018 HANSEL Nunes Jr[address] Insurance:CARESOURCEP Jr.: [facility] DRDOWNSTJAIROS olicy Number: [id number], [place] [id number] Repository [address]Txh: ([phone]) Date:2018-06-01P O [phone] () [address]ATTN: [place] [address]KC: 06/02/2018 Secondary NOT GIVENUNK [place] Insurance:SELF PAY [facility] Number: Effective Repository Date:2018-06-01 05/30/2018 HANSEL Nunes Jr[address] Insurance:CARESOURCEP Jr.: Community DRDOWNSTZELALEMKARENS olicy Number: [id number], [place] [id number] Repository [address]Ybp: ([phone]) Date:2018-05-30P O [phone] () [address]ATTN: [place] [address]ZG: 05/30/2018 Secondary NOT GIVENUNK Eds Insurance:SELF PAY [facility] Number: Effective Repository Date:2018-05-30 05/30/2018 HANSEL GAMEZ Primary HANSEL Jordanoster Jr[address] Insurance:CARESOURCEP Jr.: Community DRDOWNSTJAIROS olicy Number: [id number], [place] [id number] Repository [address]Gym: ([phone]) Date:2018-05-30P O [phone] (HP) [address]ATTN: [place] [address]TR: 05/30/2018 Secondary NOT GIVENUNK Des Insurance:SELF PAY [facility] Number: Effective Repository Date:2018-05-30 05/30/2018 HANSEL GAMEZ Primary HANSEL Nunes Jr[address] Insurance:CARESOURCEP Jr.: [facility] Number: [id number], [place] [id number] Repository [address]Lmn: ([phone]) Date:2018-05-30P O [phone] () [address]ATTN: [place] [address]SV: 05/30/2018 Secondary NOT GIVENUNK Perry Insurance:SELF PAY [facility] Number: Effective Repository Date:2018-05-30 05/30/2018 HANSEL GAMEZ Primary HANSEL Nunes Jr.[address] Insurance:CARESOURCEP Jr.: [facility] Number: [id number], [place] [id number] Repository [address]Ken: ([phone]) Date:2018-05-30P O [phone] () [address]ATTN: [place] [address]OA: 05/30/2018 Secondary NOT GIVENUNK Perry Insurance:SELF PAY [facility] Number: Effective Repository Date:2018-05-30 05/30/2018 HANSEL Jimenes Primary HANSEL S Perry [id number] Insurance:CARESOURCEP BRITTONDOB: [facility] GOMEZ [facility] Number: [id number] [id number] Repository [place] Date:2018-05-26P O [phone]: ([phone]) [address]ATTN: CLAIMS [phone] (HP) [place] [address]YZ: 05/30/2018 Secondary NOT GIVENUNK Des Insurance:SELF PAY [facility] Number: Effective Repository Date:2018-05-30 05/29/2018 HANSEL S Primary HANSEL Jimenes [place] [id number] Insurance:CARESOURCEP BRITTONDOB: [facility] GOMEZ [facility] Number: [id number] Ridge [facility] [id number] Date:2018-05-29P O [id number]: (330) [address]ATTN: CLAIMS [phone] () [place] [address]II: 05/29/2018 Secondary NOT GIVENUNK Des Insurance:SELF PAY [facility] Number: Effective Repository Date:2018-05-29 02/25/2018 HANSEL S Primary HANSEL S Des [id number] Insurance:CARESOURCEP BRITTONDOB: [facility] Number: [id number] Hospital [id number] [address] [address] Date:2018-02-25P O [address]Xga: [address]ATTN: CLAIMS [place] () [id number]: 02/25/2018 Secondary NOT GIVENUNK Des Insurance:SELF PAY [facility] Number: Effective Repository Date:2018-02-25 01/04/2018 HANSEL S Primary HANSEL S Des [id number] Insurance:CARESOURCEP BRITTONDOB: [facility] Number: [id number] Hospital [id number] [place] [address] Date:2017-12-13P O [address]Dkz: [address]ATTN: CLAIMS [place] () [phone]: 01/04/2018 Secondary NOT GIVENUNK Des Insurance:SELF PAY [facility] Number: Effective Repository Date:2018-01-04 12/23/2017 Hansel S Primary Hansel S [place] [id number] Insurance:CARESOURCEP BrittonDOB: [facility] Number: [id number] Hospital [id number] Date:2017-12-23P O [address]Wwr: [address]ATTN: CLAIMS [place] () [address]RZ: 12/23/2017 Secondary NOT GIVENUNK [place] Insurance:SELF PAY [facility] Number: Effective Repository Date:2017-12-23 12/03/2017 Hansel Jimenes Primary Hansel Jimenes [place] [id number] Insurance:CARESOURCEP BrittonDOB: [facility] Number: [id number] Hospital [id number] [address]:2017-12-03P O [id number]: [address]ATTN: CLAIMS [place] () [address]KW: 12/03/2017 Secondary NOT GIVENUNK Des Insurance:SELF PAY [facility] Number: Effective Repository Date:2017-12-03 11/04/2017 Hansel S Primary Hansel Jimenes [place] [id number] Insurance:CARESOURCEP BrittonDOB: [facility] Number: [id number] Hospital [id number] [place]:2017-11-04P O [address]Ytf: [address]ATTN: CLAIMS [place] () [address]SW: 11/04/2017 Secondary NOT GIVENUNK [place] Insurance:SELF PAY [facility] Number: Effective Repository Date:2017-11-04 06/29/2017 HANSEL S Primary HANSEL Jimenes [place] [id number] Insurance:CARESOURCEP BRITTONDOB: [facility] Number: [id number] [id number] [place]:2017-02-06[place] O [address]Cwi: [address]ATTN: CLAIMS [place] () [id number]:
== END ==
PROVIDERS: Family Provider Family Medicine; PCP Family Medicine; Visit Provider Family Medicine
DX: E53.8 Deficiency of other specified B group vitamins (principal); E83.42 Hypomagnesemia; E03.9 Hypothyroidism, unspecified; I10 Essential (primary) hypertension; E78.1 Pure hyperglyceridemia
CPT/HCPCS: 36415; 80053; 80061; 82607; 83735; 84439; 84443; 85025

== ENCOUNTER → 2018-08-03 14:28 | Outpatient (CLI) | payer MEDICAID, SELFPAY ==
[2018-05-30 17:44] VITALS: BMI 35.4
[2018-08-03 15:59] LABS: Magnesium 1.1 mg/dL (1.6-2.6); Uric Acid 9.3 mg/dL (3.5-7.2)
== END ==
PROVIDERS: Family Provider Family Medicine; PCP Family Medicine; Visit Provider Family Medicine
DX: E83.42 Hypomagnesemia (principal); M10.9 Gout, unspecified
CPT/HCPCS: 36415; 83735; 84550

== ENCOUNTER → 2018-10-31 12:14 | Outpatient (CLI) | payer MEDICAID, SELFPAY ==
[2018-05-30 17:44] VITALS: BMI 35.4
--- NOTE | 2018-10-31 12:17 | RAD_ITS ---
STUDY: X-RAY - RIGHT HAND REASON FOR EXAM: Male, 48 years old. Lateral pain and swelling following injury. TECHNIQUE: 3 view(s) of the hand. COMPARISON: None. FINDINGS: Normal radiocarpal articulation. Normal distal radioulnar joint. Normal visualized carpal bones. Normal carpal articulations Normal carpometacarpal articulation of the thumb. Normal second through fifth carpometacarpal joints. Nondisplaced fracture involving the distal portion of the fifth metacarpal. Normal metacarpophalangeal joint of the thumb. Normal interphalangeal joint of the thumb. Normal proximal and distal phalanges of the thumb. Normal metacarpophalangeal joints of the second through fifth fingers. Normal proximal and distal interphalangeal joints of the second through fifth fingers. Normal phalanges of the second through fifth fingers. Soft tissue swelling RAD/Hand Min 3 Views IMPRESSION: Nondisplaced fracture involving the distal aspect of the fifth metacarpal with overlying soft tissue swelling. Electronically Signed: Anmol Muhammad, at 12:32 EDT , Service support ,
== END ==
PROVIDERS: Family Provider Family Medicine; PCP Family Medicine; Referring Provider Family Medicine; Visit Provider Family Medicine
DX: S69.91XA Unspecified injury of right wrist, hand and finger(s), initial encounter (principal)
CPT/HCPCS: 73130

== ENCOUNTER → 2018-11-04 13:12 | Outpatient (CLI) | payer MEDICAID, SELFPAY ==
[2018-11-04 13:02] VITALS: BMI 35.4
--- NOTE | 2018-11-04 13:19 | RAD_ITS ---
STUDY: X-RAY - RIGHT HAND REASON FOR EXAM: Fracture. TECHNIQUE: 3 view(s) of the hand. COMPARISON: Radiographs 10/31/2018. FINDINGS: Normal radiocarpal articulation. Normal distal radioulnar joint. Normal visualized carpal bones. Normal carpal articulations Normal carpometacarpal articulation of the thumb. Normal second through fifth carpometacarpal joints. There is a fracture of the distal fifth metacarpal with slight palmar angulation of the distal fragment unchanged since the prior study. Normal metacarpophalangeal joint of the thumb. Normal interphalangeal joint of the thumb. Normal proximal and distal phalanges of the thumb. Normal metacarpophalangeal joints of the second through fifth fingers. Normal proximal and distal interphalangeal joints of the second through fifth fingers. Normal phalanges of the second through fifth fingers. There is dorsal soft tissue swelling. RAD/Hand Min 3 Views IMPRESSION: No interval change of distal fifth metacarpal fracture. Electronically Signed: Elvin Caballero MD at 14:41 EDT Tel , Service support ,
== END ==
PROVIDERS: Family Provider Family Medicine; PCP Family Medicine; Referring Provider Physician Assistant; Visit Provider Physician Assistant
DX: S69.91XA Unspecified injury of right wrist, hand and finger(s), initial encounter (principal)
CPT/HCPCS: 73130

== ENCOUNTER → 2018-11-15 | Outpatient (CLI) | payer MEDICAID, SELFPAY ==
[2018-11-04 13:02] VITALS: BMI 35.4
--- NOTE | 2018-11-15 12:44 | RAD_ITS ---
STUDY: X-RAY - RIGHT HAND REASON FOR EXAM: Fracture follow-up. TECHNIQUE: 3 view(s) of the hand. COMPARISON: Radiographs 11/04/2018. FINDINGS: Normal radiocarpal articulation. Normal distal radioulnar joint. Normal visualized carpal bones. Normal carpal articulations Normal carpometacarpal articulation of the thumb. Normal second through fifth carpometacarpal joints. There is a fracture of the distal fifth metacarpal with slight palmar angulation of the distal fragment unchanged since the previous study. Normal metacarpophalangeal joint of the thumb. Normal interphalangeal joint of the thumb. Normal proximal and distal phalanges of the thumb. Normal metacarpophalangeal joints of the second through fifth fingers. Normal proximal and distal interphalangeal joints of the second through fifth fingers. Normal phalanges of the second through fifth fingers. There is an overlying cast. RAD/Hand Min 3 Views IMPRESSION: No significant change of distal fifth metacarpal fracture. Electronically Signed: Elvin Caballero MD at 16:01 EDT Tel , Service support ,
== END | disposition home or self-care (01) ==
LOC: HPRAD 12:44
PROVIDERS: Family Provider Family Medicine; PCP Family Medicine; Referring Provider Physician Assistant; Visit Provider Physician Assistant
DX: S62.306A Unspecified fracture of fifth metacarpal bone, right hand, initial encounter for closed fracture (principal)
CPT/HCPCS: 73130

== ENCOUNTER → 2018-11-24 13:13 | Outpatient (CLI) | payer MEDICAID, SELFPAY ==
[2018-11-24 13:15] VITALS: BMI 35.4
--- NOTE | 2018-11-24 13:18 | RAD_ITS ---
STUDY: X-RAY - RIGHT HAND REASON FOR EXAM: Fracture. TECHNIQUE: 3 view(s) of the hand. COMPARISON: Radiographs 11/15/2018 and 11/04/2018. FINDINGS: Normal radiocarpal articulation. Normal distal radioulnar joint. Normal visualized carpal bones. Normal carpal articulations Normal carpometacarpal articulation of the thumb. Normal second through fifth carpometacarpal joints. There is a fracture of the distal fifth metacarpal with slight palmar angulation of the distal fragment, unchanged since the previous study. Normal metacarpophalangeal joint of the thumb. Normal interphalangeal joint of the thumb. Normal proximal and distal phalanges of the thumb. Normal metacarpophalangeal joints of the second through fifth fingers. Normal proximal and distal interphalangeal joints of the second through fifth fingers. Normal phalanges of the second through fifth fingers. There is an overlying cast. RAD/Hand Min 3 Views IMPRESSION: No significant change of the distal fifth metacarpal fracture. Electronically Signed: Elvin Caballero MD at 14:50 EDT Tel , Service support ,
== END ==
PROVIDERS: Family Provider Family Medicine; PCP Family Medicine; Referring Provider Physician Assistant; Visit Provider Physician Assistant
DX: S62.306A Unspecified fracture of fifth metacarpal bone, right hand, initial encounter for closed fracture (principal)
CPT/HCPCS: 73130

== ENCOUNTER → 2018-12-20 14:50 | Outpatient (CLI) | payer MEDICAID, SELFPAY ==
[2018-12-02 12:51] VITALS: BMI 35.4
[2018-12-20 17:39] LABS: Absolute Lymphocyte Count 1.92 X10^3/ul (0.83-4.51); Absolute Neutrophil Count 5.6 X10^3/uL (2.0-7.7); Basophil# 0.08 X10^3/uL; Basophil% 0.9 % (0-1); Eosinophil# 0.38 X10^3/uL; Eosinophils% 4.3 % (0-5); Hematocrit 35.6 % (40-54); Hemoglobin 11.8 g/dl (13.0-16.5); Lymphocyte # 1.92 X10^3/ul (4.0); Lymphocyte % 21.5 % (19-41); Mean Corp Hgb Conc 33.1 g/gl (32-36); Mean Corpuscular Hgb 30.7 pg (27.0-32.0); Mean Corpuscular Volume 92.7 fL (80-94); Mean Platelet Vol. 9.3 fl (6.2-12.0); Monocyte# 0.89 X10^3/uL; Neutrophil # 5.64 X10^3/uL (2.7-7.7); Neutrophil % 63.1 % (47-70); Platelet Count 486 K/mm3 (150-450); RBC Distribution Width CV 14.4 % (11.6-14.6); RBC Distribution Width SD 49.1 fl (35.1-43.9); Red Blood Count 3.84 M/mm3 (4.6-6.2); White Blood Count 8.9 K/mm3 (4.4-11.0)
[2018-12-20 17:49] LABS: POSITIVE COUNT NO; POSITIVE DIFFERENTIAL NO; POSITIVE MORPHOLOGY NO
[2018-12-20 18:13] LABS: Vitamin B12 543 pg/mL (211-911)
[2018-12-20 18:14] LABS: ALB/GLOB Ratio 1.3 RATIO (0.9-2.4); AST(SGOT) 35 U/L (15-37); Alanine Aminotransfer ALT/SGPT 38 U/L (16-61); Albumin, Serum 4.1 g/dL (3.2-5.0); Alkaline Phosphatase 73 U/L (45-117); Anion Gap 9 (5-15); BUN 17 mg/dL (7-18); BUN/Creat Ratio 11.5 RATIO (10-20); Calcium,Total 8.4 mg/dL (8.5-10.1); Chloride 106 mmol/L (98-107); Cholesterol 226 mg/dL (200); Creatinine, Serum 1.48 mg/dL (0.70-1.30); EST Glomerular Filtration Rate 54 mL/min (>60); Est Glom Filt Rate - Afr Amer 65 mL/min (>60); Globulin 3.1 g/dL (2.2-4.2); Glucose 103 mg/dL (74-106); High Density Lipoprotein 44 mg/dL; Magnesium 1.7 mg/dL (1.6-2.6); Potassium 3.8 mmol/L (3.5-5.1); Protein, Total 7.2 g/dL (6.4-8.2); Sodium Level 139 mmol/L (136-145); T4 Free Direct 0.95 ng/dL (0.76-1.46); Thyroid Stim Hormone (TSH) 2.11 uIU/mL (0.358-3.74); Triglycerides 741 mg/dL; Uric Acid 4.8 mg/dL (3.5-7.2)
== END ==
PROVIDERS: Family Provider Family Medicine; PCP Family Medicine; Visit Provider Family Medicine
DX: E03.9 Hypothyroidism, unspecified (principal); E53.8 Deficiency of other specified B group vitamins; E51.9 Thiamine deficiency, unspecified; E78.1 Pure hyperglyceridemia; M10.9 Gout, unspecified; E83.42 Hypomagnesemia; Z72.0 Tobacco use
CPT/HCPCS: 36415; 80053; 80061; 82607; 82728; 82746; 83540; 83550; 83735; 84439; 84443; 84550; 85025

== ENCOUNTER → 2019-01-18 15:13 | Outpatient (CLI) | payer MEDICAID, SELFPAY ==
[2019-01-18 15:11] VITALS: BMI 35.4
--- NOTE | 2019-01-18 15:18 | RAD_ITS ---
STUDY: X-RAY - RIGHT HAND REASON FOR EXAM: Male, 48 years old. Tingling in the hand. TECHNIQUE: 3 view(s) of the hand. COMPARISON: Comparison is made with prior study dated November 24, 2018. FINDINGS: Normal radiocarpal articulation. Normal distal radioulnar joint. Normal visualized carpal bones. Normal carpal articulations Normal carpometacarpal articulation of the thumb. Normal second through fifth carpometacarpal joints. There is evidence of a healed boxer type fracture. Residual deformity. Normal metacarpophalangeal joint of the thumb. Normal interphalangeal joint of the thumb. Normal proximal and distal phalanges of the thumb. Normal metacarpophalangeal joints of the second through fifth fingers. Normal proximal and distal interphalangeal joints of the second through fifth fingers. Normal phalanges of the second through fifth fingers. Mild soft tissue swelling. RAD/Hand Min 3 Views IMPRESSION: Healed boxer type fracture with post fracture residual deformity. Soft tissue swelling. Electronically Signed: Anmol Muhammad, at 15:00 EDT , Service support ,
== END ==
PROVIDERS: Family Provider Family Medicine; PCP Family Medicine; Referring Provider Orthopaedic Surgery; Visit Provider Orthopaedic Surgery
DX: M79.641 Pain in right hand (principal)
CPT/HCPCS: 73130

== ENCOUNTER → 2019-04-17 15:28 | Outpatient (CLI) | payer MEDICAID, SELFPAY ==
[2019-01-18 15:11] VITALS: BMI 35.4
--- NOTE | 2019-04-17 15:32 | RAD_ITS ---
STUDY: X-RAY - LEFT SHOULDER REASON FOR EXAM: Male, 48 years old. Shoulder pain TECHNIQUE: 4 view(s) of the shoulder. COMPARISON: None. FINDINGS: Normal glenohumeral articulation. Normal acromioclavicular joint. Normal acromion. Normal humeral head and visualized proximal humerus. The soft tissue structures are unremarkable. Normal visualized pulmonary apex. RAD/Shoulder min 2 Views IMPRESSION: Normal x-ray examination of the shoulder. Electronically Signed: Madhav Zepeda MD at 23:57 EDT , Service support ,
--- NOTE | 2019-04-17 15:32 | RAD_ITS ---
STUDY: X-RAY - LEFT KNEE REASON FOR EXAM: Male, 48 years old. Knee pain TECHNIQUE: 4 view(s) of the knee. COMPARISON: None. FINDINGS: Normal visualized distal femur. Normal visualized proximal tibia and fibula. Normal proximal tibiofibular articulation. Normal medial femorotibial compartment. Normal lateral femorotibial compartment. Normal patellofemoral articulation. The soft tissue structures are unremarkable. RAD/Knee 4 or More Views IMPRESSION: Normal x-ray examination of the knee. Electronically Signed: Madhav Zepeda MD at 23:55 EDT , Service support ,
--- NOTE | 2019-04-17 15:32 | RAD_ITS ---
STUDY: X-RAY - RIGHT KNEE REASON FOR EXAM: Male, 48 years old. Knee pain TECHNIQUE: 4 view(s) of the knee. COMPARISON: None FINDINGS: Normal visualized distal femur. Normal visualized proximal tibia and fibula. Normal proximal tibiofibular articulation. Normal medial femorotibial compartment. There is mild degenerative arthrosis of the lateral femorotibial compartment. Normal patellofemoral articulation. The soft tissue structures are unremarkable. RAD/Knee 4 or More Views IMPRESSION: Mild degenerative changes of the lateral knee compartment. Electronically Signed: Madhav Zepeda MD at 23:54 EDT , Service support ,
--- NOTE | 2019-04-17 15:32 | RAD_ITS ---
STUDY: X-RAY - RIGHT SHOULDER REASON FOR EXAM: Male, 48 years old. Shoulder pain TECHNIQUE: 4 view(s) of the shoulder. COMPARISON: None. FINDINGS: Normal glenohumeral articulation. Normal acromioclavicular joint. Normal acromion. Normal humeral head and visualized proximal humerus. The soft tissue structures are unremarkable. Normal visualized pulmonary apex. RAD/Shoulder min 2 Views IMPRESSION: Normal x-ray examination of the shoulder. Electronically Signed: Madhav Zepeda MD at 23:56 EDT , Service support ,
== END ==
PROVIDERS: Family Provider Family Medicine; PCP Family Medicine; Referring Provider Family Medicine; Visit Provider Family Medicine
DX: M25.511 Pain in right shoulder (principal); M25.512 Pain in left shoulder; M25.561 Pain in right knee; M25.562 Pain in left knee
CPT/HCPCS: 73030; 73564

== ENCOUNTER → 2019-09-26 14:37 | Outpatient (CLI) | payer MEDICAID, SELFPAY ==
[2019-01-18 15:11] VITALS: BMI 35.4
--- NOTE | 2019-09-26 15:39 | RAD_ITS ---
HISTORY: back pain ADDITIONAL HISTORY: None provided. TECHNIQUE: Sacroiliac joints 3 views Number of images including paperwork: 3 COMPARISON: None FINDINGS: BONES: No acute fracture. JOINTS: No subluxation. No significant degenerative or erosive changes. SOFT TISSUES: No distinct foreign body. RAD/S-I Jts 3 or More Views IMPRESSION: No significant abnormality. at 0113 Reported and signed by: Funmilayo Cruz MD Electronically Signed: Funmilayo Cruz MD at 1:12 EST Tel , Service support ,
--- NOTE | 2019-09-26 15:39 | RAD_ITS ---
HISTORY: back pain TECHNIQUE: Lumbar spine 5 views Number of images including paperwork: 5 COMPARISON: None FINDINGS: VERTEBRAE: No acute fracture. VERTEBRAL ALIGNMENT: No traumatic subluxation. DISKS AND JOINTS: Disc heights are preserved. Small osteophytes. SOFT TISSUES: Unremarkable paraspinous soft tissues. RAD/L/S Spine Min 4 Views IMPRESSION: No acute osseous abnormality. Minimal degenerative changes. at 0112 Reported and signed by: Funmilayo Cruz MD Electronically Signed: Funmilayo Cruz MD at 1:11 EST Tel , Service support ,
[2019-09-26 17:41] LABS: Absolute Lymphocyte Count 1.83 X10^3/uL (0.83-4.51); Absolute Neutrophil Count 4.7 X10^3/uL (2.0-7.7); Basophil# 0.11 X10^3/uL; Basophil% 1.4 % (0-1); Eosinophil# 0.51 X10^3/uL; Eosinophils% 6.5 % (0-5); Hematocrit 40.2 % (40-54); Hemoglobin 12.7 g/dL (13.0-16.5); Lymphocyte # 1.83 X10^3/ul (4.0); Lymphocyte % 23.5 % (19-41); Mean Corp Hgb Conc 31.6 g/dL (32-36); Mean Corpuscular Hgb 30.3 pg (27.0-32.0); Mean Corpuscular Volume 95.9 fL (80-94); Mean Platelet Vol. 9.4 fl (6.2-12.0); Monocyte# 0.65 X10^3/uL; Monocyte% 8.3 % (0-10); NRBC Flagged by Analyzer 0 % (0-5); Neutrophil # 4.65 X10^3/uL (2.7-7.7); Neutrophil % 59.8 % (47-70); Platelet Count 426 K/mm3 (150-450); RBC Distribution Width CV 13.4 % (11.6-14.6); Red Blood Count 4.19 M/mm3 (4.6-6.2); White Blood Count 7.8 K/mm3 (4.4-11.0)
[2019-09-26 17:57] LABS: Vitamin B12 704 pg/mL (211-911)
[2019-09-26 18:08] LABS: ALB/GLOB Ratio 1.2 RATIO (0.9-2.4); AST(SGOT) 29 U/L (15-37); Alanine Aminotransfer ALT/SGPT 42 U/L (16-61); Alkaline Phosphatase 75 U/L (45-117); Anion Gap 7 (5-15); BUN 12 mg/dL (7-18); BUN/Creat Ratio 11.2 RATIO (10-20); Calcium,Total 9.3 mg/dL (8.5-10.1); Chloride 104 mmol/L (98-107); Cholesterol 240 mg/dL (200); Creatinine, Serum 1.07 mg/dL (0.70-1.30); EST Glomerular Filtration Rate 78 mL/min (>60); Est Glom Filt Rate - Afr Amer 94 mL/min (>60); Globulin 3.3 g/dL (2.2-4.2); Glucose 97 mg/dL (74-106); High Density Lipoprotein 56 mg/dL; Magnesium 1.5 mg/dL (1.6-2.6); PSA,Total - Annual Screen 0.62 ng/mL (0.00-4.00); Potassium 3.7 mmol/L (3.5-5.1); Protein, Total 7.3 g/dL (6.4-8.2); Sodium Level 137 mmol/L (136-145); Triglycerides 291 mg/dL; Uric Acid 4.7 mg/dL (3.5-7.2); Very Low Density Lipoprotein 58 mg/dL (5-40)
== END ==
PROVIDERS: PCP Family Medicine; Referring Provider Family Medicine; Visit Provider Family Medicine
DX: E83.42 Hypomagnesemia (principal); I10 Essential (primary) hypertension; E78.1 Pure hyperglyceridemia; E53.8 Deficiency of other specified B group vitamins; E03.9 Hypothyroidism, unspecified; M10.9 Gout, unspecified; E51.9 Thiamine deficiency, unspecified; N40.1 Benign prostatic hyperplasia with lower urinary tract symptoms; M54.9 Dorsalgia, unspecified
CPT/HCPCS: 72110; 72202; 80053; 80061; 82607; 83735; 84153; 84439; 84443; 84550; 85025; G0103

== ENCOUNTER → 2020-03-13 16:20 | Outpatient (CLI) | payer MEDICAID, SELFPAY ==
[2019-01-18 15:11] VITALS: BMI 35.4
[2020-03-13 17:40] LABS: Absolute Lymphocyte Count 1.94 X10^3/uL (0.83-4.51); Absolute Neutrophil Count 6.6 X10^3/uL (2.0-7.7); Basophil# 0.11 X10^3/uL; Basophil% 1.1 % (0-1); Eosinophil# 0.33 X10^3/uL; Eosinophils% 3.3 % (0-5); Hematocrit 40.8 % (40-54); Hemoglobin 13.4 g/dL (13.0-16.5); Lymphocyte # 1.94 X10^3/ul (4.0); Lymphocyte % 19.4 % (19-41); Mean Corp Hgb Conc 32.8 g/dL (32-36); Mean Corpuscular Hgb 31.4 pg (27.0-32.0); Mean Corpuscular Volume 95.6 fL (80-94); Mean Platelet Vol. 9.4 fl (6.2-12.0); Monocyte# 0.97 X10^3/uL; Monocyte% 9.7 % (0-10); NRBC Flagged by Analyzer 0 % (0-5); Neutrophil # 6.61 X10^3/uL (2.7-7.7); Platelet Count 433 K/mm3 (150-450); RBC Distribution Width CV 14.1 % (11.6-14.6); RBC Distribution Width SD 48.6 fl (35.1-43.9); Red Blood Count 4.27 M/mm3 (4.6-6.2)
[2020-03-13 18:08] LABS: Vitamin B12 544 pg/mL (211-911)
[2020-03-13 18:15] LABS: ALB/GLOB Ratio 1.1 RATIO (0.9-2.4); AST(SGOT) 88 U/L (15-37); Alanine Aminotransfer ALT/SGPT 114 U/L (16-61); Alkaline Phosphatase 122 U/L (45-117); Anion Gap 9 (5-15); BUN 12 mg/dL (7-18); BUN/Creat Ratio 11.1 RATIO (10-20); Calcium,Total 8.6 mg/dL (8.5-10.1); Chloride 106 mmol/L (98-107); Cholesterol 264 mg/dL (200); Creatinine, Serum 1.08 mg/dL (0.70-1.30); EST Glomerular Filtration Rate 77 mL/min (>60); Est Glom Filt Rate - Afr Amer 93 mL/min (>60); Globulin 3.8 g/dL (2.2-4.2); Glucose 102 mg/dL (74-106); High Density Lipoprotein 54 mg/dL; Magnesium 1.5 mg/dL (1.6-2.6); Potassium 3.4 mmol/L (3.5-5.1); Protein, Total 7.8 g/dL (6.4-8.2); Sodium Level 139 mmol/L (136-145); T4 Free Direct 1.03 ng/dL (0.76-1.46); Thyroid Stim Hormone (TSH) 2.82 uIU/mL (0.358-3.74); Triglycerides 776 mg/dL
[2020-03-17 09:08] LABS: Vitamin B1, Thiamine 121.4 nmol/L (66.5-200.0)
== END ==
PROVIDERS: PCP Family Medicine; Referring Provider Family Medicine; Visit Provider Family Medicine
DX: I10 Essential (primary) hypertension (principal); E78.1 Pure hyperglyceridemia; E83.42 Hypomagnesemia; E51.9 Thiamine deficiency, unspecified; E03.9 Hypothyroidism, unspecified; E53.8 Deficiency of other specified B group vitamins
CPT/HCPCS: 36415; 80053; 80061; 82607; 83735; 84425; 84439; 84443; 85025

== ENCOUNTER → 2020-07-25 16:56 | Outpatient (CLI) | payer MEDICAID, SELFPAY ==
[2019-01-18 15:11] VITALS: BMI 35.4
[2020-07-25 18:08] LABS: Absolute Neutrophil Count 4.9 X10^3/uL (2.0-7.7); Basophil# 0.11 X10^3/uL; Basophil% 1.4 % (0-1); Eosinophil# 0.41 X10^3/uL; Eosinophils% 5.1 % (0-5); Hematocrit 41.4 % (40-54); Hemoglobin 13.1 g/dL (13.0-16.5); Lymphocyte % 22.6 % (19-41); Mean Corp Hgb Conc 31.6 g/dL (32-36); Mean Corpuscular Hgb 30.9 pg (27.0-32.0); Mean Corpuscular Volume 97.6 fL (80-94); Mean Platelet Vol. 9.4 fl (6.2-12.0); Monocyte# 0.68 X10^3/uL; Monocyte% 8.5 % (0-10); NRBC Flagged by Analyzer 0 % (0-5); Neutrophil # 4.92 X10^3/uL (2.7-7.7); Neutrophil % 61.6 % (47-70); Platelet Count 361 K/mm3 (150-450); RBC Distribution Width CV 13.6 % (11.6-14.6); RBC Distribution Width SD 48.9 fl (35.1-43.9); Red Blood Count 4.24 M/mm3 (4.6-6.2)
[2020-07-25 18:48] LABS: Vitamin B12 1077 pg/mL (211-911)
[2020-07-25 18:56] LABS: ALB/GLOB Ratio 1.1 RATIO (0.9-2.4); AST(SGOT) 50 U/L (15-37); Alanine Aminotransfer ALT/SGPT 74 U/L (16-61); Albumin, Serum 3.9 g/dL (3.2-5.0); Alkaline Phosphatase 116 U/L (45-117); Anion Gap 6 (5-15); BUN 9 mg/dL (7-18); Calcium,Total 8.8 mg/dL (8.5-10.1); Chloride 103 mmol/L (98-107); Cholesterol 254 mg/dL (200); EST Glomerular Filtration Rate 95 mL/min (>60); Est Glom Filt Rate - Afr Amer 114 mL/min (>60); Globulin 3.5 g/dL (2.2-4.2); Glucose 110 mg/dL (74-106); High Density Lipoprotein 53 mg/dL; Magnesium 1.4 mg/dL (1.6-2.6); Potassium 3.8 mmol/L (3.5-5.1); Protein, Total 7.4 g/dL (6.4-8.2); Sodium Level 135 mmol/L (136-145); T4 Free Direct 0.82 ng/dL (0.76-1.46); Thyroid Stim Hormone (TSH) 1.97 uIU/mL (0.358-3.74); Triglycerides 615 mg/dL
[2020-07-31 07:07] LABS: Vitamin B1, Thiamine 102.3 nmol/L (66.5-200.0)
[2020-07-31 15:35] LABS: Anti-Thyroglobulin AB < 1.0 IU/mL (0.0-0.9); Thyroglobulin, Serum Qt. 28.2 ng/mL (1.4-29.2); Thyroid Peroxidase AB < 9 IU/mL (0-34)
== END ==
PROVIDERS: PCP Family Medicine; Referring Provider Family Medicine; Visit Provider Family Medicine
DX: I10 Essential (primary) hypertension (principal); E78.1 Pure hyperglyceridemia; E83.42 Hypomagnesemia; E51.9 Thiamine deficiency, unspecified; E03.9 Hypothyroidism, unspecified
CPT/HCPCS: 36415; 80053; 80061; 82607; 83735; 84425; 84432; 84439; 84443; 85025; 86376; 86800

== ENCOUNTER → 2021-01-30 14:48 | Outpatient (CLI) | payer MEDICAID, SELFPAY ==
[2019-01-18 15:11] VITALS: BMI 35.4
[2021-01-30 18:01] LABS: Absolute Lymphocyte Count 1.67 X10^3/uL (0.83-4.51); Absolute Neutrophil Count 5.7 X10^3/uL (2.0-7.7); Basophil# 0.09 X10^3/uL; Basophil% 1.1 % (0-1); Eosinophil# 0.32 X10^3/uL; Eosinophils% 3.8 % (0-5); Hematocrit 39.7 % (40-54); Hemoglobin 13.2 g/dL (13.0-16.5); Lymphocyte # 1.67 X10^3/ul (0.83-4.51); Lymphocyte % 19.7 % (19-41); Mean Corp Hgb Conc 33.2 g/dL (32-36); Mean Corpuscular Hgb 32.4 pg (27.0-32.0); Mean Corpuscular Volume 97.3 fL (80-94); Mean Platelet Vol. 9.5 fl (6.2-12.0); Monocyte# 0.69 X10^3/uL; Monocyte% 8.1 % (0-10); NRBC Flagged by Analyzer 0 % (0-5); Neutrophil # 5.66 X10^3/uL (2.7-7.7); Neutrophil % 66.6 % (47-70); Platelet Count 427 K/mm3 (150-450); RBC Distribution Width CV 13.2 % (11.6-14.6); Red Blood Count 4.08 M/mm3 (4.6-6.2); White Blood Count 8.5 K/mm3 (4.4-11.0)
[2021-01-30 18:12] LABS: Vitamin B12 694 pg/mL (211-911)
[2021-01-30 18:25] LABS: ALB/GLOB Ratio 1.1 RATIO (0.9-2.4); AST(SGOT) 59 U/L (15-37); Alanine Aminotransfer ALT/SGPT 64 U/L (16-61); Albumin, Serum 4.2 g/dL (3.2-5.0); Alkaline Phosphatase 122 U/L (45-117); Anion Gap 8 (5-15); BUN 11 mg/dL (7-18); BUN/Creat Ratio 10.5 RATIO (10-20); Calcium,Total 9.3 mg/dL (8.5-10.1); Chloride 101 mmol/L (98-107); Cholesterol 269 mg/dL (200); Creatinine, Serum 1.05 mg/dL (0.70-1.30); EST Glomerular Filtration Rate 79 mL/min (>60); Est Glom Filt Rate - Afr Amer 96 mL/min (>60); Globulin 3.7 g/dL (2.2-4.2); Glucose 122 mg/dL (74-106); High Density Lipoprotein 59 mg/dL; Magnesium 1.4 mg/dL (1.6-2.6); Potassium 3.8 mmol/L (3.5-5.1); Protein, Total 7.9 g/dL (6.4-8.2); Sodium Level 134 mmol/L (136-145); T4 Free Direct 0.79 ng/dL (0.76-1.46); Thyroid Stim Hormone (TSH) 1.66 uIU/mL (0.358-3.74); Triglycerides 541 mg/dL
[2021-01-31 12:57] LABS: Hepatitis B Surface Antibody Non-Reactive; Hepatitis B Surface Antigen Non-Reactive (Nonreactive); Hepatitis C Antibody Non-Reactive (Nonreactive)
[2021-02-06 14:26] LABS: Vitamin B1, Thiamine 189.4 nmol/L (66.5-200.0)
== END ==
PROVIDERS: PCP Family Medicine; Referring Provider Family Medicine; Visit Provider Family Medicine
DX: E78.1 Pure hyperglyceridemia (principal); E83.42 Hypomagnesemia; I10 Essential (primary) hypertension; E51.9 Thiamine deficiency, unspecified; E03.9 Hypothyroidism, unspecified; Z72.0 Tobacco use; E53.8 Deficiency of other specified B group vitamins
CPT/HCPCS: 36415; 80053; 80061; 82607; 83735; 84425; 84439; 84443; 85025; 86706; 86803; 87340

== ENCOUNTER 2021-08-15 10:44 | Outpatient (CLI) | payer MEDICAID, SELFPAY ==
[2021-08-15 12:38] LABS: Absolute Lymphocyte Count 1.89 X10^3/uL (0.83-4.51); Absolute Neutrophil Count 5.1 X10^3/uL (2.0-7.7); Basophil# 0.08 X10^3/uL; Eosinophil# 0.31 X10^3/uL; Eosinophils% 3.8 % (0-5); Hematocrit 39.1 % (40-54); Hemoglobin 13.2 g/dL (13.0-16.5); Lymphocyte # 1.89 X10^3/ul (0.83-4.51); Mean Corp Hgb Conc 33.8 g/dL (32-36); Mean Corpuscular Hgb 32.4 pg (27.0-32.0); Mean Corpuscular Volume 96.1 fL (80-94); Mean Platelet Vol. 9.4 fl (6.2-12.0); Monocyte% 9.7 % (0-10); NRBC Flagged by Analyzer 0 % (0-5); Neutrophil # 5.12 X10^3/uL (2.7-7.7); Neutrophil % 62.1 % (47-70); Platelet Count 380 K/mm3 (150-450); RBC Distribution Width CV 13.7 % (11.6-14.6); RBC Distribution Width SD 48.3 fl (35.1-43.9); Red Blood Count 4.07 M/mm3 (4.6-6.2); White Blood Count 8.2 K/mm3 (4.4-11.0)
[2021-08-15 13:16] LABS: Vitamin B12 625 pg/mL (211-911)
[2021-08-15 13:33] LABS: AST(SGOT) 52 U/L (15-37); Alanine Aminotransfer ALT/SGPT 54 U/L (16-61); Albumin, Serum 3.7 g/dL (3.2-5.0); Alkaline Phosphatase 102 U/L (45-117); Anion Gap 13 (5-15); BUN 13 mg/dL (7-18); BUN/Creat Ratio 14.8 RATIO (10-20); Calcium,Total 7.9 mg/dL (8.5-10.1); Chloride 104 mmol/L (98-107); Cholesterol 273 mg/dL (200); Creatinine, Serum 0.88 mg/dL (0.70-1.30); EST Glomerular Filtration Rate 97 mL/min (>60); Est Glom Filt Rate - Afr Amer 117 mL/min (>60); Globulin 3.6 g/dL (2.2-4.2); Glucose 107 mg/dL (74-106); High Density Lipoprotein 62 mg/dL; Magnesium 1.4 mg/dL (1.6-2.6); Potassium 3.1 mmol/L (3.5-5.1); Protein, Total 7.3 g/dL (6.4-8.2); Sodium Level 137 mmol/L (136-145); T4 Free Direct 0.78 ng/dL (0.76-1.46); Thyroid Stim Hormone (TSH) 1.97 uIU/mL (0.358-3.74); Triglycerides 573 mg/dL
[2021-08-26 14:08] LABS: VITAMIN B6 3.7 ug/L (5.3-46.7)
[2021-08-26 16:31] LABS: Vitamin B1, Thiamine 184.4 nmol/L (66.5-200.0)
== END 2021-08-15 23:59 | disposition short-term general hospital (02) ==
LOC: MFPLAB 10:45
PROVIDERS: PCP Family Medicine; Referring Provider Family Medicine; Visit Provider Family Medicine
DX: I10 Essential (primary) hypertension (principal); E78.1 Pure hyperglyceridemia; E03.8 Other specified hypothyroidism; E53.8 Deficiency of other specified B group vitamins
CPT/HCPCS: 36415; 80053; 80061; 82607; 83735; 84207; 84425; 84439; 84443; 85025

== ENCOUNTER → 2022-04-22 | Outpatient (CLI) | payer MEDICAID, SELFPAY ==
[2022-04-22 17:30] LABS: Absolute Lymphocyte Count 1.82 X10^3/uL (0.83-4.51); Absolute Neutrophil Count 3.5 X10^3/uL (2.0-7.7); Basophil# 0.07 X10^3/uL; Basophil% 1.1 % (0-1); Eosinophil# 0.28 X10^3/uL; Eosinophils% 4.4 % (0-5); Hematocrit 39.6 % (40-54); Hemoglobin 13.2 g/dL (13.0-16.5); Lymphocyte # 1.82 X10^3/ul (0.83-4.51); Lymphocyte % 28.5 % (19-41); Mean Corp Hgb Conc 33.3 g/dL (32-36); Mean Corpuscular Hgb 34.6 pg (27.0-32.0); Mean Corpuscular Volume 103.7 fL (80-94); Mean Platelet Vol. 9.3 fl (6.2-12.0); Monocyte# 0.73 X10^3/uL; Monocyte% 11.4 % (0-10); NRBC Flagged by Analyzer 0 % (0-5); Neutrophil # 3.47 X10^3/uL (2.7-7.7); Neutrophil % 54.3 % (47-70); Platelet Count 381 K/mm3 (150-450); RBC Distribution Width CV 12.9 % (11.6-14.6); RBC Distribution Width SD 49.1 fl (35.1-43.9); Red Blood Count 3.82 M/mm3 (4.6-6.2); White Blood Count 6.4 K/mm3 (4.4-11.0)
[2022-04-22 17:44] LABS: Vitamin B12 440 pg/mL (211-911)
[2022-04-22 17:48] LABS: ALB/GLOB Ratio 1.1 RATIO (0.9-2.4); AST(SGOT) 27 U/L (15-37); Alanine Aminotransfer ALT/SGPT 33 U/L (16-61); Albumin, Serum 3.7 g/dL (3.2-5.0); Alkaline Phosphatase 88 U/L (45-117); Anion Gap 8 (5-15); BUN 14 mg/dL (7-18); BUN/Creat Ratio 17.2 RATIO (10-20); Calcium,Total 8.6 mg/dL (8.5-10.1); Chloride 105 mmol/L (98-107); Cholesterol 170 mg/dL (200); Creatinine, Serum 0.81 mg/dL (0.70-1.30); EST Glomerular Filtration Rate 106 mL/min (>60); Est Glom Filt Rate - Afr Amer 128 mL/min (>60); Globulin 3.3 g/dL (2.2-4.2); Glucose 85 mg/dL (74-106); High Density Lipoprotein 68 mg/dL; Magnesium 1.8 mg/dL (1.6-2.6); Potassium 3.7 mmol/L (3.5-5.1); Sodium Level 138 mmol/L (136-145); T4 Free Direct 0.76 ng/dL (0.76-1.46); Thyroid Stim Hormone (TSH) 2.15 uIU/mL (0.358-3.74); Triglycerides 145 mg/dL; Uric Acid 4.1 mg/dL (3.5-7.2); Very Low Density Lipoprotein 29 mg/dL (5-40)
[2022-05-02 12:53] LABS: VITAMIN B6 6.8 ug/L (3.4-65.2); Vitamin B1, Thiamine 195.2 nmol/L (66.5-200.0)
== END | disposition home or self-care (01) ==
LOC: MFPLAB 14:54
PROVIDERS: PCP Family Medicine; Referring Provider Family Medicine; Visit Provider Family Medicine
DX: E53.8 Deficiency of other specified B group vitamins (principal); M10.9 Gout, unspecified; E83.42 Hypomagnesemia; I10 Essential (primary) hypertension
CPT/HCPCS: 36415; 80053; 80061; 82607; 83735; 84207; 84425; 84439; 84443; 84550; 85025

== ENCOUNTER → 2022-07-07 | Outpatient (CLI) | payer MEDICAID, SELFPAY ==
--- NOTE | 2022-07-07 15:04 | RAD_ITS ---
STUDY: X-RAY - RIGHT SHOULDER REASON FOR EXAM: Male, 51 years old. Right shoulder pain. Injured shoulder moving a large television by himself. TECHNIQUE: 4 view(s) of the shoulder. COMPARISON: None. FINDINGS: There is mild degenerative arthrosis of the glenohumeral articulation. There is degenerative arthrosis of the acromioclavicular joint without inferior osseous spur formation. Normal acromion. There is no acute fracture, dislocation or destructive osseous pathology. Normal humeral head and visualized proximal humerus. The soft tissue structures are unremarkable. Normal visualized pulmonary apex. RAD/Shoulder min 2 Views IMPRESSION: Mild degenerative changes of the shoulder without acute fracture or dislocation. Electronically Signed: Eugenio Cummins DO at 18:46 EST ,
== END | disposition home or self-care (01) ==
PROVIDERS: PCP Family Medicine; Referring Provider Nurse Practitioner Family; Visit Provider Nurse Practitioner Family
DX: M25.511 Pain in right shoulder (principal)
CPT/HCPCS: 73030

== ENCOUNTER → 2022-08-25 | Outpatient (CLI) | payer MEDICAID, SELFPAY | END | disposition home or self-care (01) | LOC: MRI 16:57 | PROVIDERS: PCP Family Medicine; Referring Provider Physician Assistant; Visit Provider Physician Assistant | DX: S49.91XA Unspecified injury of right shoulder and upper arm, initial encounter (principal); M25.511 Pain in right shoulder ==

== ENCOUNTER 2022-11-09 02:17 | Inpatient (IN) | payer MEDICAID, SELFPAY ==
[2022-11-09] VITALS (30 sets, daily range): BP systolic 62–103; BP diastolic 44–72; PULSE 76–130; RESP 17–97; TEMP 35.7–37.6; O2SAT 19–100; BMI 28.3; BMI 26.8
[2022-11-09] MEDS: 0.9% Normal Saline 1,000 ML 999 ML IV ×5 (02:25→21:49)
--- NOTE | 2022-11-09 02:30 | CT_ITS ---
EXAM: CT HEAD WITHOUT INTRAVENOUS CONTRAST CLINICAL INDICATION: head injury TECHNIQUE: Multiple axial images were obtained of the head without intravenous contrast. This CT exam was performed using one or more of the following dose reduction techniques: automated exposure control, adjustment of the mA and/or kV according to patient size, and/or use of iterative reconstruction technique. This report was created using [employer] report generation technology. RADIATION DOSE: CTDIvol = 44.99 mGy, DLP = 863.60 mGy-cm. COMPARISON: 06/29/2017. FINDINGS: BRAIN AND EXTRA-AXIAL SPACES: Unremarkable. No intra- or extra-axial hemorrhage. No evidence of acute infarct. No intracranial mass or mass effect. There is preservation of the myers/white matter interface. Posterior fossa structures are unremarkable. Ventricles are appropriate for age. No hydrocephalus. Basal cisterns are patent. BONES/JOINTS: Unremarkable. No discrete lytic or blastic abnormalities. SINUSES: Mucosal thickening right maxillary sinus. MASTOID AIR CELLS: Unremarkable. Clear. ORBITS: Visualized globes, extraocular muscles, optic nerves and retrobulbar fat appear unremarkable. CT/Brain/Head without Contrast IMPRESSION: 1. No acute intracranial abnormality. 2. Mucosal thickening right maxillary sinus. Electronically Signed: Michael Easley MD at 3:26 EDT ,
--- NOTE | 2022-11-09 02:31 | EDS_ITS ---
HPI History of Present Illness Chief Complaint: Seizure Informant: patient and family Onset/Context/Timing Onset: Days Context: Gradual Onset Timing: Continuous Current Severity: Moderate Maximum Severity: Moderate Narrative Narrative: 52-year-old male history of a prior encephalopathy, prior alcohol abuse but his daughter states he did not drink as often now, hypertension serotonin syndrome. Patient lives with his mother. Mother recently had COVID. He has not been feeling well for a week. Unable to get any history from him according to his daughter he has been sick with nausea and vomiting. Also diarrhea. He has had 4 falls in the last 24 hours. Tuan was called on their arrival and was on the floor and had a 45-second tonic-clonic seizure for the squad and the daughter. No prior history of seizures. Prior similar symptoms: No Recent Illness/Hospitalization: No [facility] Medical History Acute encephalopathy Alcohol abuse, daily use Depression GERD (gastroesophageal reflux disease) HTN (hypertension) Perianal abscess Serotonin syndrome Serotonin syndrome Smoker Urinary retention due to benign prostatic hyperplasia Home Medications omeprazole 40 mg capsule,delayed release 40 mg PO DAILY REFLUX 07/04/15 [History Last Taken 05/30/18] lisinopril 20 mg-hydrochlorothiazide 12.5 mg tablet 1 tab PO DAILY BLOOD PRESSURE 06/17/17 [History Last Taken 05/30/18] finasteride 5 mg tablet 5 mg PO DAILY #30 tabs 06/20/17 [Rx Last Taken 05/30/18] magnesium oxide 400 mg (241.3 mg magnesium) tablet 400 mg PO BIDCM SUPPLEMENT 06/29/17 [History Last Taken 05/30/18] tamsulosin 0.4 mg capsule 0.4 mg PO DAILY@1730 PROSTATE 06/29/17 [History Last Taken 05/30/18] vitamin B12 500 mcg-folic acid 400 mcg tablet 1 tab PO QDAY 01/04/18 [History Last Taken 05/30/18] meloxicam 15 mg tablet 15 mg PO DAILY #21 tabs 09/14/22 [Rx Last Taken Unknown] Allergy/AdvReac Type Severity Reaction Status Date / Time Penicillins Allergy Unknown Verified 11/09/22 02:49 fluoxetine [From Prozac] AdvReac Other Verified 11/09/22 02:49 Family History Sister Diabetes Heart disease Mother CAD (coronary artery disease) Surgical History S/P right knee arthroscopy S/P tonsillectomy Social History Smoking Status: Current every day smoker tobacco type: cigarettes alcohol intake: current alcohol intake frequency: holidays/special occasions only ROS ROS ED ROS Narrative Nausea, vomiting and diarrhea. Falls. Review of Systems ROS Unobtainable: due to encephalopathy and due to mental status Constitutional Constitutional ED: Reports fever(s) Eyes Eyes: Denies blurry vision ENT ENT ED: Denies ear pain, rhinorrhea or sore throat Cardiovascular Cardiovascular: Denies chest pain Respiratory/Chest Respiratory/Chest: Denies cough or dyspnea Gastrointestinal Gastrointestinal: Reports diarrhea, nausea and vomiting; Denies abdominal pain, constipation or melena Genitourinary Genitourinary ED: Denies dysuria Musculoskeletal Musculoskeletal: Denies arthralgias Integumentary Denies abscess Neurologic Neurologic: Denies headache(s) Psychiatric Psychiatric: Denies anxiety Endocrine Endocrinology: Denies cold intolerance Hematologic/Lymphatic Hematologic/Lymphatic: Reports none Allergic/Immunologic Allergic/Immunologic ED: Denies mouth swelling or tongue swelling EXAM Physical Exam Narrative Exam Narrative: 52-year-old male he is hypotensive at 77/52. Afebrile 96 4. Pulse ox 90% on 6 L he is hypoxic. Clinically looks dehydrated. He may be septic. He has a decreased mental status but his eyes are open. He is moving all 4 extremities. He is a very limited informant. He follows limited commands. Daughter is at bedside. H EENT exam pupils round reactive light. No signs of trauma to his face or head. Dry mucous membranes. Neck nontender trachea midline. Lungs clear to auscultation bilaterally. Heart tachycardic rate about 120 no murmur. Chest wall nontender. Abdomen soft nontender. Nondistended. No signs of bruising. Pelvic girdle intact. Moving all 4 extremities. Nontender no deformity. No bruising. Neurologically his eyes are open. He is moving all 4 extremities. There is no focal motor deficits. He follows limited commands. He is really not much of an informant at this time. Const Vital Signs: 11/09/22 02:19 11/09/22 02:26 11/09/22 02:45 Temperature 96.4 F L 96.4 F L 96.4 F L Temperature Source Temporal Temporal Temporal Pulse Rate 121 H 119 H 109 H Respiratory Rate 38 H 38 H 22 H Blood Pressure 77/52 L 77/52 L 72/44 L Blood Pressure Mean 60 60 53 Pulse Ox 90 98 Oxygen Delivery Method Non-Rebreather Nasal Cannula Non-Rebreather Oxygen Flow Rate (L/min) 6 15 11/09/22 03:00 11/09/22 03:18 11/09/22 03:35 Temperature 96.5 F L 96.3 F L Temperature Source Core Core Pulse Rate 106 H 106 H Respiratory Rate 97 H 23 H Blood Pressure 84/54 L 84/50 L 99/53 L Blood Pressure Mean 64 61 68 Pulse Ox 19 100 Oxygen Delivery Method Room Air Non-Rebreather Oxygen Flow Rate (L/min) 15 Positive well nourished and well developed; Negative for obese, cachectic, contractures or unkempt General Appearance ED: well developed and pallor; Negative for unkempt, cachectic, contractures, cyanotic, diaphoretic or NAD Nutritional Appearance: Negative for cachectic or obese HEENT Reports dry mucous membranes; Denies moist mucous membranes Negative for trauma or tenderness Mouth ED: Yes dry mucous membranes Mouth: dry mucous membranes Eyes PERRL and EOMs intact bilaterally General Eye ED: Negative for pale conjunctiva or scleral icterus Neck no lymphadenopathy, supple and no JVD General: Negative for tenderness Lymph Lymphatic: Negative for other Chest Wall inspection of chest normal and palpation of chest normal Chest: Negative for other Resp normal respiratory effort and clear to auscultation bilaterally Effort and Inspection: Negative for retractions Auscultation: Negative for rales, rhonchi or wheezes Cardio regular rhythm, S1 normal heart sound, S2 normal heart sound and no murmurs; Negative for regular rate Rate: tachycardic GI normal to inspection, nondistended, normoactive bowel sounds, non-tender, non- distended and no masses Inspection: Negative for abdominal distention Auscultation: normoactive bowel sounds Palpation: soft; Negative for tender or guarding Bladder / Kidney Exam: No other Back/Spine no CVA tenderness General Back: Negative for CVA tenderness Cervical Spine: Negative for cervical spine tenderness Thoracic Spine / Upper Back: Negative for thoracic spinal tenderness Lumbar Spine / Lower Back: Negative for lumbar spinal tenderness Extremity normal to inspection General Extremety ED: Negative for edema or tenderness General Extremity: Negative for edema Neuro No oriented x3 Sensorium / Orientation: alert, orientation impaired and lethargic Motor Exam: strength 5/5 throughout Psych mental status grossly normal Appearance: Negative for unkempt Attitude: No agitated Mood & Affect: Negative for depressed, anxious or tearful Skin no rashes or lesions noted and no wounds General Skin Exam: pallor; Negative for jaundice Lesions: No lesion noted Rashes: No rashes noted Trauma: Negative for abrasion Wounds: Negative for wounds noted MDM MDM MDM Narrative Medical decision making narrative: 52-year-old male possibly septic. Clinically appears dehydrated. He is hypotensive. He is hypoxic. Has had multiple falls with a head injury and also seized tonight. His initial blood sugar was 183. 2 large-bore IVs to be started to be given 2 L of fluid. Undergo a septic work-up. Also his mother has COVID so he will be evaluated for COVID and influenza. He will need to be admitted. He will be given Ativan due to his agitation. Multiple repeat exams the most recent at 3:20 AM patient's blood pressure started to improve. He is sedated from the Ativan. His white count is elevated. His chest x-ray and CT of his brain are unremarkable awaiting formal radiology interpretation. Daughters at bedside have been keeping up-to-date on the labs. Nurses are providing one-to-one care. He is almost done with a second liter of fluid his current pressure systolically is 90. He is getting a 3 L of normal saline. Patient continues to improve is gotten 3 L of normal saline and is currently being started on the fourth. He will also be started on IV Zosyn due to his leukocytosis in case he has an underlying infection that we have not discovered as of yet. Blood and urine cultures are pending his UA and his chest x-ray were unremarkable. He has been afebrile. He will definitely need to be admitted. I will speak to the hospitalist is currently admitting other patients when av ailable. History & Record Review Discussion w/independent historian: EMS personnel, Patient and Family Lab Data Attestation: I reviewed the patient's lab results. Lab results narrative: See patient is a white count of 21.9. H&H of 15 and 46. Platelet count is elevated at 802,000. PT/INR PTT are normal. BG T183. CAT scan of the brain shows no acute abnormality on my initial wet read. Awaiting the formal radiologist's interpretation. Venous blood gas was obtained showed a pH of 7.16 PCO2 of 36, PO2 of 39. Saturation was 61% but again this is a venous gas. Rapid and COVID influenza swabs are both negative. PT and PTT are normal. Urinalysis is negative. No white nor red cells. No nitrites. No bacteria. Ammonia level is normal at 28. CHEM 3 shows sodium 128. Potassium of 3.0. BUN 55 and creatinine 10.9 consistent with acute kidney failure. Patient's anion gap is elevated at 25. Glucose is 257. Labs: Laboratory Results - last 24 hr 11/09/22 11/09/22 11/09/22 02:30 02:31 02:31 WBC 21.9 H RBC 4.55 L Hgb 15.1 Hct 46.4 MCV 102.0 H MCH 33.2 H MCHC 32.5 RDW Std Deviation 49.1 H RDW Coeff of Oleksandr 13.1 Plt Count 802 H* MPV 10.0 Immature Gran % (Auto) 3.400 H Neut % (Auto) 84.5 H Lymph % (Auto) 8.2 L [place] % (Auto) 2.8 Eos % (Auto) 0.2 Baso % (Auto) 0.9 Absolute Neuts (auto) 18.5 H Absolute Lymphs (auto) 1.80 Nucleated RBC % 0 Diff Path Review May foll Platelet Estimate MKD INC Macrocytosis 1+ PT 14.6 INR 1.2 APTT 29.2 Sodium Potassium Chloride Carbon Dioxide Anion Gap BUN Creatinine Estim Creat Clear Calc Est GFR (MDRD) Af Amer Est GFR (MDRD) Non-Af BUN/Creatinine Ratio Glucose Lactic Acid Calcium Total Bilirubin AST ALT Alkaline Phosphatase Ammonia Total Protein Albumin Globulin Albumin/Globulin Ratio Urine Color Urine Clarity Urine pH Ur Specific [place] Urine Protein Urine Glucose (UA) Urine Ketones Urine Occult Blood Urine Nitrite Urine Bilirubin Urine Urobilinogen Ur Leukocyte Esterase Urine RBC Urine WBC Ur Squamous Epith Cells Urine Bacteria Hyaline Casts Urine Mucus POC Glucose 183 H 11/09/22 11/09/22 11/09/22 02:31 02:50 02:50 WBC RBC Hgb Hct MCV MCH MCHC RDW Std Deviation RDW Coeff of Oleksandr Plt Count MPV Immature Gran % (Auto) Neut % (Auto) Lymph % (Auto) [place] % (Auto) Eos % (Auto) Baso % (Auto) Absolute Neuts (auto) Absolute Lymphs (auto) Nucleated RBC % Diff Path Review Platelet Estimate Macrocytosis PT INR APTT Sodium 128 L Potassium 3.0 L Chloride 89 L Carbon Dioxide 14.0 L Anion Gap 25 H BUN 55 H Creatinine 10.90 H* Estim Creat Clear Calc 7.84 Est GFR (MDRD) Af Amer 6 L Est GFR (MDRD) Non-Af 5 L BUN/Creatinine Ratio 5.0 L Glucose 257 H Lactic Acid 8.5 H* Calcium 9.7 Total Bilirubin 0.40 AST 38 H ALT 29 Alkaline Phosphatase 152 H Ammonia 28.0 Total Protein 10.8 H Albumin 4.8 Globulin 6.0 H Albumin/Globulin Ratio 0.8 L Urine Color Urine Clarity Urine pH Ur Specific [place] Urine Protein Urine Glucose (UA) Urine Ketones Urine Occult Blood Urine Nitrite Urine Bilirubin Urine Urobilinogen Ur Leukocyte Esterase Urine RBC Urine WBC Ur Squamous Epith Cells Urine Bacteria Hyaline Casts Urine Mucus POC Glucose 11/09/22 03:00 WBC RBC Hgb Hct MCV MCH MCHC RDW Std Deviation RDW Coeff of Oleksandr Plt Count MPV Immature Gran % (Auto) Neut % (Auto) Lymph % (Auto) [place] % (Auto) Eos % (Auto) Baso % (Auto) Absolute Neuts (auto) Absolute Lymphs (auto) Nucleated RBC % Diff Path Review Platelet Estimate Macrocytosis PT INR APTT Sodium Potassium Chloride Carbon Dioxide Anion Gap BUN Creatinine Estim Creat Clear Calc Est GFR (MDRD) Af Amer Est GFR (MDRD) Non-Af BUN/Creatinine Ratio Glucose Lactic Acid Calcium Total Bilirubin AST ALT Alkaline Phosphatase Ammonia Total Protein Albumin Globulin Albumin/Globulin Ratio Urine Color Yellow Urine Clarity Clear Urine pH 5.0 Ur Specific [place] 1.030 Urine Protein 30 H Urine Glucose (UA) Normal Urine Ketones Negative Urine Occult Blood 10 H Urine Nitrite Negative Urine Bilirubin 3 H Urine Urobilinogen Normal Ur Leukocyte Esterase 25 H Urine RBC 0-5 SEEN Urine WBC 0-5 SEEN Ur Squamous Epith Cells 0 SEEN Urine Bacteria RARE Hyaline Casts 0-5 SEEN Urine Mucus 0 SEEN POC Glucose ABG Data ABG results: ABG 11/09/22 02:57 Specimen Type YAO VBG pH 7.17 L* VBG pO2 40 VBG HCO3 13 L VBG Total CO2 14 L VBG O2 Sat (Calc) 61 VBG Base Excess -16 L POC Mix VBG pCO2 Pt Tmp 36.3 L O2 Delivery Device NRB Crit Call To/Read Back Yes Blood Gas Notified Whom padilla Blood Gas Notified Time 02:59:16 Radiography Chest X-Ray - ED: 1 View, Read by ED Physician, Heart, Lungs, Mediastinum, Bony Structures, No Acute Disease and Chronic Changes Diagnostic Testing: Clinical Impression(s) from Imaging Studies Brain CT 11/09/22 02:30 IMPRESSION: 1. No acute intracranial abnormality. 2. Mucosal thickening right maxillary sinus. Electronically Signed: Michael Easley MD at 3:26 EDT , Chest X-Ray 11/09/22 03:10 IMPRESSION: No acute cardiopulmonary abnormality. Electronically Signed: Michael Easley MD at 3:29 EDT , Chest x-ray, portable, single view, interpreted by myself shows no acute abnormality. Normal cardiac silhouette. Normal mediastinum. No infiltrates. No pneumothorax. No obvious rib fractures. Radiologist also has evaluated the chest x-ray now and agrees. Rhythm Strip Rhythm Strip: Sinus Tach Rate: 114 Ectopy: None EKG Initial EKG: Attestation: I personally reviewed and interpreted this EKG as follows: Interpretation: Sinus Rhythm, No Acute Injury Pattern and Sinus Tachycardia Comments: Sinus tachycardia rate of 114. No acute signs of MD or ischemia. Differential Diagnosis Differential Diagnosis: Sepsis on variety of causes. COVID. Clinically is dehydrated. He is hypotensive and hypoxic. He has had falls. Critical Care Time Critical Care Time: Yes Critical care time (excluding procedures): 30-74 minutes, 75-104 minutes, Including time spent:, Discussing w/Patient &/or Family/Consumer Services Consultant, Discussing w/Consultants, Arranging Admission or Transfer, Performing Direct Patient Care at Bedside and - (35 min) Discharge Plan Dx/Rx/DC Orders Clinical Impression: Acute alteration in mental status, Acute encephalopathy, Acute hypotension, Acute dehydration, Falls, Hypoxia, Head injury, Seizure in response to acute event, Acute kidney failure, Metabolic acidosis, Acute lactic acidosis Disposition Disposition: [facility]
--- NOTE | 2022-11-09 02:37 | EKG12_ITS ---
Test Reason : Blood Pressure : / mmHG Vent. Rate : 114 BPM Atrial Rate : 114 BPM P-R Int : 150 ms QRS Dur : 096 ms QT Int : 352 ms P-R-T Axes : 078 036 082 degrees QTc Int : 485 ms Sinus tachycardia Otherwise normal ECG Confirmed by MARLIN ANSARI, ODALYS ([id number]), editor magazine JAI JERRY ([id number]) on 11/11/2022 10:08:11 AM Referred By: Confirmed By:MANJEET ISAAC MD
[2022-11-09] MEDS: LORazepam 2 MG/ML Syringe 1 MG IV (02:44)
[2022-11-09 02:51] LABS: Bedside Glucose 183 mg/dL (74-106)
[2022-11-09 03:00] LABS: Absolute Neutrophil Count 18.5 X10^3/uL (2.0-7.7); Basophil# 0.19 X10^3/uL; Basophil% 0.9 % (0-1); Eosinophil# 0.04 X10^3/uL; Eosinophils% 0.2 % (0-5); Hematocrit 46.4 % (40-54); Hemoglobin 15.1 g/dL (13.0-16.5); Lymphocyte % 8.2 % (19-41); Mean Corp Hgb Conc 32.5 g/dL (32-36); Mean Corpuscular Hgb 33.2 pg (27.0-32.0); Monocyte# 0.61 X10^3/uL; Monocyte% 2.8 % (0-10); NRBC Flagged by Analyzer 0 % (0-5); Neutrophil # 18.49 X10^3/uL (2.7-7.7); Neutrophil % 84.5 % (47-70); POSITIVE COUNT YES; Platelet Count 802 K/mm3 (150-450); RBC Distribution Width CV 13.1 % (11.6-14.6); RBC Distribution Width SD 49.1 fl (35.1-43.9); Red Blood Count 4.55 M/mm3 (4.6-6.2); White Blood Count 21.9 K/mm3 (4.4-11.0)
[2022-11-09 03:01] LABS: Mucous, Urine 0 SEEN /hpf (<or=2+); Squamous Epithelial Cells - UA 0 SEEN /hpf (0-5)
[2022-11-09 03:06] LABS: Blood Gas Specimen Type VEN; O2 Delivery Device NRB; VBG BASE EXCESS -16 mmol/L (-1.0-3.5); VBG Bicarbonate 13 mmol/L (22-26); VBG PO2 40 mmHg (25-40); VBG SO2 61 % (50-70); VBG TCO2 14 mmol/L (23-33); VBG pCO2 36.3 mmHg (41-51); VBG pH 7.17 (7.32-7.42)
[2022-11-09 03:06] LABS: Glucose, Dipstick Normal (Normal); Ketone-Dipstick Negative (Negative); Leukocyte Esterase-Dipstick 25 /ul (Negative); Nitrite-Dipstick Negative (Negative); Occult Blood-Urine 10 /ul (Negative); Protein-Dipstick 30 mg/dl (Negative); Urine Urobilinogen Normal (Normal)
[2022-11-09 03:06] LABS: International Normalized Ratio 1.2; Prothrombin Time (Protime)PT. 14.6 SECONDS (11.7-14.9)
[2022-11-09 03:07] LABS: Differential Indicated SCAN CRITERIA MET; Partial Thromboplast Time 29.2 Seconds (24.1-36.2)
--- NOTE | 2022-11-09 03:10 | RAD_ITS ---
EXAM: XR CHEST, 1 VIEW CLINICAL INDICATION: fever TECHNIQUE: Frontal view of the chest. This report was created using [employer] report generation technology. COMPARISON: 05/29/2018. FINDINGS: LUNGS AND PLEURAL SPACES: Unremarkable. No consolidation or edema. No pneumothorax. No effusion. HEART: Unremarkable. Cardiac silhouette not enlarged. MEDIASTINUM: Central airways and mediastinal contour are unremarkable. BONES/JOINTS: Unremarkable. SOFT TISSUES: Unremarkable. RAD/Chest 1 View (Portable) IMPRESSION: No acute cardiopulmonary abnormality. Electronically Signed: Michael Easley MD at 3:29 EDT ,
[2022-11-09 03:28] LABS: Color, Urine Yellow (Yellow); Urine Bilirubin Dipstick 3 mg/dL (Negative); Urine Clarity Clear (Clear)
[2022-11-09 03:31] LABS: White Blood Cells 0-5 SEEN /hpf (0-5)
[2022-11-09 03:32] LABS: Bacteria RARE /hpf (None Seen); Hyaline Cast 0-5 SEEN /lpf (0-5); Red Blood Cells-Urine 0-5 SEEN /hpf (0-5)
[2022-11-09 03:39] LABS: ALB/GLOB Ratio 0.8 RATIO (0.9-2.4); AST(SGOT) 38 U/L (15-37); Alanine Aminotransfer ALT/SGPT 29 U/L (16-61); Albumin, Serum 4.8 g/dL (3.2-5.0); Alkaline Phosphatase 152 U/L (45-117); Anion Gap 25 (5-15); BUN 55 mg/dL (7-18); Calcium,Total 9.7 mg/dL (8.5-10.1); Chloride 89 mmol/L (98-107); EST Glomerular Filtration Rate 5 mL/min (>60); Est Glom Filt Rate - Afr Amer 6 mL/min (>60); Estimated Creatinine Clearance 7.84 ml/min; Glucose 257 mg/dL (74-106); Protein, Total 10.8 g/dL (6.4-8.2); Sodium Level 128 mmol/L (136-145)
[2022-11-09 03:41] LABS: Platelet Estimate MKD INC (ADEQ)
[2022-11-09 03:43] LABS: Macrocytosis 1+
[2022-11-09 03:46] LABS: Lactic Acid 8.5 mmol/L (0.4-1.9)
[2022-11-09 04:22] LABS: Alcohol, Blood (Medical)-Serum < 3.0 mg/dL
--- NOTE | 2022-11-09 05:22 | PCM.HP.STD ---
HPI - General General Date of Admission: 11/09/22 Date of Service: 11/09/22 Chief Complaint: Nausea; vomiting diarrhea HPI Narrative ELIE GAMEZ, is a 52 M with a significant history of alcoholism; BPH and hypertension who presented to the emergency department with a 2-week history of progressively worsening nausea, vomiting and diarrhea that started about 2 weeks ago. Associated with his symptoms is lethargy. When paramedics went to pick patient patient up he had a tonic clonic seizures and became even more lethargic thereafter. Reportedly in the past patient has not had any seizures. Patient drinks alcohol a lot but her daughter thinks that in the past 48 before presentation patient has cut down. Per daughter patient drinks about 6 packs beer per day. Patient reported that he drinks about 6 packs beer about 2 times in a week. Two days before presentation patient fell 4 times. At the emergency department patient was found to have a poor urine output even after receiving 4 L of normal saline. Patient was found to have bloody loose bowel movements at the ED. History was taken predominantly from patient's daughter who was at the bedside. Only limited information was obtained from patient as he did not remember majority of the history. [facility] Medical History Acute encephalopathy Alcohol abuse, daily use Depression GERD (gastroesophageal reflux disease) HTN (hypertension) Perianal abscess Serotonin syndrome Serotonin syndrome Smoker Urinary retention due to benign prostatic hyperplasia Home Medications omeprazole 40 mg capsule,delayed release 40 mg PO DAILY REFLUX 07/04/15 [History Last Taken 05/30/18] lisinopril 20 mg-hydrochlorothiazide 12.5 mg tablet 1 tab PO DAILY BLOOD PRESSURE 06/17/17 [History Last Taken 05/30/18] finasteride 5 mg tablet 5 mg PO DAILY #30 tabs 06/20/17 [Rx Last Taken 05/30/18] magnesium oxide 400 mg (241.3 mg magnesium) tablet 400 mg PO BIDCM SUPPLEMENT 06/29/17 [History Last Taken 05/30/18] tamsulosin 0.4 mg capsule 0.4 mg PO DAILY@1730 PROSTATE 06/29/17 [History Last Taken 05/30/18] vitamin B12 500 mcg-folic acid 400 mcg tablet 1 tab PO QDAY 01/04/18 [History Last Taken 05/30/18] meloxicam 15 mg tablet 15 mg PO DAILY #21 tabs 09/14/22 [Rx Last Taken Unknown] Allergy/AdvReac Type Severity Reaction Status Date / Time Penicillins Allergy Unknown Verified 11/09/22 02:49 fluoxetine [From Prozac] AdvReac Other Verified 11/09/22 02:49 Family History Sister Diabetes Heart disease Mother CAD (coronary artery disease) Surgical History S/P right knee arthroscopy S/P tonsillectomy Social History Smoking Status: Current every day smoker tobacco type: cigarettes alcohol intake: current alcohol intake frequency: holidays/special occasions only ROS Review of Systems ROS Unobtainable: due to mental status Vital Signs Vital Signs Vital Signs: 11/09/22 02:19 11/09/22 02:26 11/09/22 02:45 Temperature 96.4 F L 96.4 F L 96.4 F L Temperature Source Temporal Temporal Temporal Pulse Rate 121 H 119 H 109 H Respiratory Rate 38 H 38 H 22 H Blood Pressure 77/52 L 77/52 L 72/44 L Blood Pressure Mean 60 60 53 Pulse Ox 90 98 Oxygen Delivery Method Non-Rebreather Nasal Cannula Non-Rebreather Oxygen Flow Rate (L/min) 6 15 11/09/22 03:00 11/09/22 03:18 11/09/22 03:35 Temperature 96.5 F L 96.3 F L Temperature Source Core Core Pulse Rate 106 H 106 H Respiratory Rate 97 H 23 H Blood Pressure 84/54 L 84/50 L 99/53 L Blood Pressure Mean 64 61 68 Pulse Ox 19 100 Oxygen Delivery Method Room Air Non-Rebreather Oxygen Flow Rate (L/min) 15 11/09/22 04:06 11/09/22 04:06 11/09/22 05:07 Temperature 98.4 F 98.5 F Temperature Source Temporal Temporal Pulse Rate 109 H 100 76 Respiratory Rate 20 H 27 H 18 Blood Pressure 86/62 L 86/62 L 95/53 L Blood Pressure Mean 70 70 67 Pulse Ox 99 100 98 Oxygen Delivery Method Non-Rebreather Room Air Oxygen Flow Rate (L/min) 11/09/22 05:07 11/09/22 05:08 Temperature 98.2 F 96.8 F L Temperature Source Temporal Core Pulse Rate 119 H Respiratory Rate 17 Blood Pressure 95/53 L Blood Pressure Mean 67 Pulse Ox 97 99 Oxygen Delivery Method Room Air Oxygen Flow Rate (L/min) Weight Weight: 87 kg Body Mass Index (BMI) 28.3 Physical Exam Narrative Physical exam: General: Well-nourished, well-developed. Head: Normocephalic, atraumatic, no tenderness Eyes: Vision is grossly intact. EOMI ENT, no trauma, no tongue laceration, no rhinorrhea Neck: Nontender, No thyromegaly. CVS: Regular rate and rhythm. S1-S2 present. No murmur, gallop or rub. Respiratory : clear to auscultation bilaterally, chest wall nontender Abdomen: Soft, nontender, nondistended, normal bowel sounds, no masses : Maciel catheter (placed in the ED) Back: Nontender, no CVA tenderness, no midline spinal tenderness, deformities, step-offs Extremities: Nontender full range of motion, no trauma Skin: Normal color, no trauma, abrasions Neuro: Alert, cranial nerves II through XII grossly intact. Psychiatry: Normal mood. Normal affect. Not depressed. Not anxious. Results Lab / Micro Data Result Diagrams: 11/09/22 02:31 11/09/22 02:31 Labs: Laboratory Results - last 24 hr 11/09/22 02:30: POC Glucose 183 H 11/09/22 02:31: WBC 21.9 H, RBC 4.55 L, Hgb 15.1, Hct 46.4, MCV 102.0 H, MCH 33.2 H, MCHC 32.5, RDW Std Deviation 49.1 H, RDW Coeff of Oleksandr 13.1, Plt Count 802 H*, MPV 10.0, Immature Gran % (Auto) 3.400 H, Neut % (Auto) 84.5 H, Lymph % (Auto) 8.2 L, [place] % (Auto) 2.8, Eos % (Auto) 0.2, Baso % (Auto) 0.9, Absolute Neuts (auto) 18.5 H, Absolute Lymphs (auto) 1.80, Nucleated RBC % 0, Diff Path Review May foll, Platelet Estimate MKD INC, Macrocytosis 1+ 11/09/22 02:31: PT 14.6, INR 1.2, APTT 29.2 11/09/22 02:31: Sodium 128 L, Potassium 3.0 L, Chloride 89 L, Carbon Dioxide 14.0 L, Anion Gap 25 H, BUN 55 H, Creatinine 10.90 H*, Estim Creat Clear Calc 7.84, Est GFR (MDRD) Af Amer 6 L, Est GFR (MDRD) Non-Af 5 L, BUN/Creatinine Ratio 5.0 L, Glucose 257 H, Calcium 9.7, Total Bilirubin 0.40, AST 38 H, ALT 29, Alkaline Phosphatase 152 H, Total Protein 10.8 H, Albumin 4.8, Globulin 6.0 H, Albumin/Globulin Ratio 0.8 L 11/09/22 02:31: Ethyl Alcohol Cancelled 11/09/22 02:50: Ammonia 28.0 11/09/22 02:50: Lactic Acid 8.5 H* 11/09/22 03:00: Urine Color Yellow, Urine Clarity Clear, Urine pH 5.0, Ur Specific [place] 1.030, Urine Protein 30 H, Urine Glucose (UA) Normal, Urine Ketones Negative, Urine Occult Blood 10 H, Urine Nitrite Negative, Urine Bilirubin 3 H, Urine Urobilinogen Normal, Ur Leukocyte Esterase 25 H, Urine RBC 0-5 SEEN, Urine WBC 0-5 SEEN, Ur Squamous Epith Cells 0 SEEN, Urine Bacteria RARE, Hyaline Casts 0-5 SEEN, Urine Mucus 0 SEEN 11/09/22 03:55: Ethyl Alcohol < 3.0 Micro: Microbiology 11/09/22 02:31 Nasal Secretion SARS-CoV-2 & FLU Antigen (Rapid) - Final ABG Data ABG results: ABG 11/09/22 02:57 Specimen Type YAO VBG pH 7.17 L* VBG pO2 40 VBG HCO3 13 L VBG Total CO2 14 L VBG O2 Sat (Calc) 61 VBG Base Excess -16 L POC Mix VBG pCO2 Pt Tmp 36.3 L O2 Delivery Device NRB Crit Call To/Read Back Yes Blood Gas Notified Whom padilla Blood Gas Notified Time 02:59:16 Rhythm Strip Rhythm Strip: Sinus Tach Rate: 114 Ectopy: None Radiology Impression Brain CT 11/09/22 02:30 IMPRESSION: 1. No acute intracranial abnormality. 2. Mucosal thickening right maxillary sinus. Electronically Signed: Michael Easley MD at 3:26 EDT , Chest X-Ray 11/09/22 03:10 IMPRESSION: No acute cardiopulmonary abnormality. Electronically Signed: Michael Easley MD at 3:29 EDT , Assessment & Plan Assessment/Plan (1) Septic shock: (2) Acute kidney failure: (3) Seizure in response to acute event: (4) Hypoxia: (5) Alcoholism: PLAN: Plan Septic shock The patient presented with sepsis due to (gastroenteritis) with acute sepsis related organ dysfunction as evidenced by (lactic acidosis; acute encephalopathy; acute kidney injury). Radiologist impression of chest x-ray:No acute cardiopulmonary abnormality. Chest x-ray was visualized and independently interpreted and I agree with radiology interpretation. Urinalysis was reviewed, unremarkable. SIRS criteria: Respiratory rate more than 20 Heart rate more than 90 WBC more than 21,900; trend Lactic acid of 8.5, trend. VBG showed pH of 7.17 Blood culture x2 ordered emergency department, follow. Received normal saline bolus prior septic shock protocol. Maintenance IV infusion continued. Zosyn started emergency department and continued. We will get a KUB. Stool studies ordered. Noted to have proteinemia of 10.8, trend CMP. Hold all home antihypertensive medication. Seizure Secondary to infection versus alcohol withdrawal. Brain CT per radiology interpretation: No acute intracranial normalities; mucosal thickening of the right maxillary sinus. Seizure precautions ordered. EEG ordered. As needed Ativan for seizures ordered. Hyponatremia Sodium of 128 on presentation. Likely secondary to hypovolemia; nausea and vomiting. IV hydration as above. Trend. Hypokalemia Potassium of 3.0. Like secondary to hypovolemia, nausea and vomiting. P.o. and IV replacement ordered. Check magnesium. BLUE Creatinine presentation was 10.90 with decreased urine output. Baseline creatinine is less than 1. BUN is 55; more than 3 times of baseline. BUN/CR 5; likely ATN. IV hydration ordered. Maciel catheter placed on the ED. Will get ultrasound of kidneys and bladder. Avoid nephrotoxins. Nephrology consult. Trend BMP and CMP. Anion gap metabolic acidosis Noted to have bicarbonate of 14; anion gap of 25. Like secondary to acute uremia and lactic acidosis. IV fluids and antibiotics as above. Hyperglycemia Glucose of 257 on BMP. Likely secondary to sepsis. Check A1c. Elevated liver biochemistry AST mildly elevated at 38, alkaline phosphatase slightly elevated at 152; ALT normal at 29. Secondary to alcoholism. Not indicative of shock liver. Trend CMP Alcoholism Placed on CIWA protocol with as needed Ativan. Folic acid and thiamine ordered. Hypoxia Require supplemental oxygenation with mask. Titrate oxygen as needed. Acute infectious or metabolic encephalopathy/post ictal state Improved DVT prophylaxis: With hemorrhagic diarrhea will avoid chemical thromboprophylaxis at this time. SCDs ordered. Sepsis Attestation Sepsis Alert: Yes Sepsis Attestation: Agree w/Sepsis Date exam was performed: 11/09/22 Time exam was performed: 05:45 Possible Source of Sepsis: GI tract/intra-abdominal Sepsis Organ Dysfunction Criteria Present: SBP < 90 mmHg or MAP < 65 mmHg, Creatinine > 2.0 mg/dL, UOP < 0.5 mL/kg/hour for 2 consecutive hours, Lactic Acid > 2 mmol/L, Serum CO2 < 20 mmol/L (on BMP) and New/Unexplained change in mental status Fluid Resuscitation Fluid Resuscitation ordered: 30 ml/kg fluid bolus ordered Sepsis Note Sepsis Attestation: Sepsis re-evaluation was performed Response to fluids: Fluid responsive hypotension Charges/Coding Visit Charges Inpatient E&M: 05495 Init Hosp L3
--- NOTE | 2022-11-09 06:00 | RAD_ITS ---
EXAM: XR ABDOMEN, 1 VIEW CLINICAL INDICATION: Nausea, vomiting, diarrhea TECHNIQUE: Frontal supine view of the abdomen/pelvis. This report was created using [employer] report generation technology. COMPARISON: None. FINDINGS: LOWER THORAX: No acute pathology. GASTROINTESTINAL TRACT: Prominent stomach with thickened rugal folds. ORGANS: Unremarkable as visualized. No organomegaly. No abnormal calcifications. BONES/JOINTS: No acute pathology. SOFT TISSUES: No acute pathology. RAD/Abdomen Single View (Portable) IMPRESSION: Prominent stomach with thickened rugal folds. Findings may indicate gastritis or an infiltrative process. Consider follow-up with upper endoscopy. Electronically Signed: Gary Mcgraw MD at 7:00 EDT ,
[2022-11-09] MEDS: Potassium Chloride Oral Tablet 20 MEQ 40 MEQ PO (06:16)
[2022-11-09] MEDS: 0.9% Normal Saline 1,000 ML 100 ML IV ×2 (06:17→16:36)
[2022-11-09] MEDS: Potassium Chloride 10mEq/100mL 10 MEQ/100 ML IV.SOLN. 100 MEQ IV BOLUS ×4 (06:17→10:09)
[2022-11-09 06:44] LABS: Hematocrit 46.4 % (40-54); Hemoglobin 14.7 g/dL (13.0-16.5)
[2022-11-09 06:52] LABS: Magnesium 0.5 mg/dL (1.6-2.6)
[2022-11-09 06:56] LABS: Reflex Lactate? Y
--- NOTE | 2022-11-09 07:00 | US_ITS ---
STUDY: RENAL ULTRASOUND - COMPLETE REASON FOR EXAM: Male, 52 years old. BLUE TECHNIQUE: Ultrasound evaluation of the kidneys was performed with real-time and static butler-scale imaging. COMPARISON: None. FINDINGS: RIGHT KIDNEY: Normal location of the right kidney, which is normal in size. The right kidney measures 10.7 cm x 5 cm x 6.8 cm. There is a normal cortex of the right kidney. The renal cortex measures 1.8 cm. There is no right renal mass or cyst. There are no right renal calculi. There is no right hydronephrosis. DISTAL RIGHT URETER: There is non-visualization of the distal right ureter. There is no demonstrated right ureterovesical junction calculus. There is no demonstrated right ureteral jet. LEFT KIDNEY: Normal location of the left kidney, which is normal in size. The left kidney measures 11.8 cm x 5.3 cm x 6 cm. There is a normal cortex of the left kidney. The renal cortex measures 1.6 cm. There is no left renal mass or cyst. There are no left renal calculi. There is no left hydronephrosis. DISTAL LEFT URETER: There is non-visualization of the distal left ureter. There is no demonstrated left ureterovesical junction calculus. There is no demonstrated left ureteral jet. BLADDER: A Maciel catheter is seen within an empty urinary bladder. US/Kidney and Bladder IMPRESSION: Normal ultrasound of the kidneys. A Maciel catheter is seen within an empty urinary bladder. Electronically Signed: Anmol Muhammad MD at 10:49 EDT ,
--- NOTE | 2022-11-09 07:49 | CON.PCM.CC_ITS ---
Assessment & Plan Assessment/Plan (1) Sepsis: PLAN: Plan RECOMMENDATIONS: 1. Continue supplemental IV fluid hydration. 2. Aggressive electrolyte repletion. 3. Empiric antimicrobials. 4. CIWA protocol with thiamine and folate. 5. Seizure precautions with as needed Ativan. 6. Neurology consultation. IMPRESSIONS: 1. Sepsis The patient presented to the hospital with sepsis due to probable GI source of infection with acute sepsis related organ dysfunction as evidenced by encephalopathy, acute kidney injury and lactic acidemia. The patient has received supplemental IV fluid hydration, and at the present time, is hemodynami hugo stable without the need for vasopressor support. Enteric panel is pending. Empiric antimicrobials have been initiated. 2. Hyponatremia/hypokalemia/hypomagnesemia Likely secondary to generalized hypovolemia, coupled with chronic alcohol dependency. Plan to continue IV fluid hydration as tolerated over along with aggressive electrolyte repletion. 3. Acute kidney injury Most likely prerenal in etiology in the setting of #1 coupled with intravascular volume depletion. The patient has received supplemental IV fluids, which will be continued as tolerated. Renal ultrasound was unremarkable. Plan to continue to monitor urine output for now. No current indication for renal replacement therapy. 4. Encephalopathy with questionable new onset seizure activity Most likely metabolic in etiology. However, I cannot discount the possibility of a postictal state. The patient denied a prior seizure history. Plan to continue seizure precautions along with as needed Ativan. Neurology consultation will be obtained. 5. History of alcohol dependency/BPH/hypertension/GERD Complicates care, management, recovery and prognosis. Continue CIWA protocol with thiamine and folate repletion. Monitor for signs of alcohol withdrawal. Hold antihypertensives for now. This note was generated with [employer] dictation software. It may contain incorrect words, spelling, and punctuation that were not noted in checking the note before signing. HPI Consult Data Date of Consult: 11/10/22 HPI Narrative Reason for Consultation: Septic shock HPI Narrative: The patient is a 52-year-old male, with a history as outlined below, who presented to the emergency department via EMS on November 09 with nausea, vomiting and diarrhea. While the patient does have an alcohol abuse history, he reported that he has not drank anything for greater than 1 week. Typically, he drinks multiple beers daily. He denied any history of prior seizure activity. However, there is some concern by EMS that the patient experienced generalized tonic-clonic seizure activity while in route to the hospital. On presentation to the emergency department, the patient was noted to have a temperature of 96.4 ?F. He was notably tachycardic and tachypneic with a presenting blood pressure of 77/52 mmHg. Laboratory evaluation revealed an elevated white blood cell count to 22,000. Platelet count was elevated at 802,000. Coagulation profile was within normal limits. Chemistry profile was notable for a sodium of 128, potassium of 3.0, chloride of 89, bicarbonate of 14, anion gap of 25, BUN of 55 and creatinine of 10.9. Lactate was elevated at 8.5. Magnesium was low at 0.5. Head CT demonstrated no acute intracranial abnormalities. Initial chest x-ray demonstrated no acute cardiopulmonary process. The patient did receive supplemental IV fluid hydration and was started on antibiotics. He was subsequently transferred to the medical in tensive care unit for further management. [facility] Medical History Acute encephalopathy Alcohol abuse, daily use Depression GERD (gastroesophageal reflux disease) HTN (hypertension) Perianal abscess Serotonin syndrome Serotonin syndrome Smoker Urinary retention due to benign prostatic hyperplasia Home Medications omeprazole 40 mg capsule,delayed release 40 mg PO DAILY REFLUX 07/04/15 [History Last Taken 05/30/18] lisinopril 20 mg-hydrochlorothiazide 12.5 mg tablet 1 tab PO DAILY BLOOD PRESSURE 06/17/17 [History Last Taken 05/30/18] finasteride 5 mg tablet 5 mg PO DAILY #30 tabs 06/20/17 [Rx Last Taken 05/30/18] magnesium oxide 400 mg (241.3 mg magnesium) tablet 400 mg PO BIDCM SUPPLEMENT 06/29/17 [History Last Taken 05/30/18] tamsulosin 0.4 mg capsule 0.4 mg PO DAILY@1730 PROSTATE 06/29/17 [History Last Taken 05/30/18] vitamin B12 500 mcg-folic acid 400 mcg tablet 1 tab PO QDAY 01/04/18 [History Last Taken 05/30/18] meloxicam 15 mg tablet 15 mg PO DAILY #21 tabs 09/14/22 [Rx Last Taken Unknown] Allergy/AdvReac Type Severity Reaction Status Date / Time Penicillins Allergy Unknown Verified 11/09/22 02:49 fluoxetine [From Prozac] AdvReac Other Verified 11/09/22 02:49 Family History Sister Diabetes Heart disease Mother CAD (coronary artery disease) Surgical History S/P right knee arthroscopy S/P tonsillectomy Social History Smoking Status: Current every day smoker tobacco type: cigarettes alcohol intake: current alcohol intake frequency: holidays/special occasions only ROS ROS Narrative 10 systems were reviewed with pertinent positives as noted in the HPI above. Physical Exam Const alert and no apparent distress General Appearance: cooperative HEENT normocephalic and head/scalp atraumatic Eyes PERRL, EOMs intact bilaterally and conjunctivae normal Neck supple General: trachea midline Chest inspection of chest normal Resp normal respiratory effort Auscultation: Negative for rales, rhonchi or wheezes Cardio S1 normal heart sound and S2 normal heart sound Rate: tachycardic GI normal to inspection, nondistended, normoactive bowel sounds Extremity no clubbing, cyanosis or edema Skin no rashes or lesions noted Neuro CN's II-XII intact bilaterally and no focal motor deficits Psych cooperative and affect normal Lab / Micro Data Result Diagrams: 11/10/22 03:54 11/10/22 03:54 Labs: Laboratory Results - last 24 hr 11/09/22 02:30: POC Glucose 183 H 11/09/22 02:31: WBC 21.9 H, RBC 4.55 L, Hgb 15.1, Hct 46.4, MCV 102.0 H, MCH 33.2 H, MCHC 32.5, RDW Std Deviation 49.1 H, RDW Coeff of Oleksandr 13.1, Plt Count 802 H*, MPV 10.0, Immature Gran % (Auto) 3.400 H, Neut % (Auto) 84.5 H, Lymph % (Auto) 8.2 L, [place] % (Auto) 2.8, Eos % (Auto) 0.2, Baso % (Auto) 0.9, Absolute Neuts (auto) 18.5 H, Absolute Lymphs (auto) 1.80, Nucleated RBC % 0, Diff Path Review May foll, Platelet Estimate MKD INC, Macrocytosis 1+ 11/09/22 02:31: PT 14.6, INR 1.2, APTT 29.2 11/09/22 02:31: Sodium 128 L, Potassium 3.0 L, Chloride 89 L, Carbon Dioxide 14.0 L, Anion Gap 25 H, BUN 55 H, Creatinine 10.90 H*, Estim Creat Clear Calc 7.84, Est GFR (MDRD) Af Amer 6 L, Est GFR (MDRD) Non-Af 5 L, BUN/Creatinine Ratio 5.0 L, Glucose 257 H, Calcium 9.7, Total Bilirubin 0.40, AST 38 H, ALT 29, Alkaline Phosphatase 152 H, Total Protein 10.8 H, Albumin 4.8, Globulin 6.0 H, Albumin/Globulin Ratio 0.8 L 11/09/22 02:31: Ethyl Alcohol Cancelled 11/09/22 02:31: Magnesium 0.5 L* 11/09/22 02:50: Ammonia 28.0 11/09/22 02:50: Lactic Acid 8.5 H* 11/09/22 03:00: Urine Color Yellow, Urine Clarity Clear, Urine pH 5.0, Ur Specific [place] 1.030, Urine Protein 30 H, Urine Glucose (UA) Normal, Urine Ketones Negative, Urine Occult Blood 10 H, Urine Nitrite Negative, Urine Bilirubin 3 H, Urine Urobilinogen Normal, Ur Leukocyte Esterase 25 H, Urine RBC 0-5 SEEN, Urine WBC 0-5 SEEN, Ur Squamous Epith Cells 0 SEEN, Urine Bacteria RARE, Hyaline Casts 0-5 SEEN, Urine Mucus 0 SEEN 11/09/22 03:55: Ethyl Alcohol < 3.0 11/09/22 06:30: Hgb 14.7, Hct 46.4 Micro: Microbiology 11/09/22 06:30 Stool Stool Lactoferrin - Final 11/09/22 02:31 Nasal Secretion SARS-CoV-2 & FLU Antigen (Rapid) - Final ABG Data ABG results: ABG 11/09/22 02:57 Specimen Type YAO VBG pH 7.17 L* VBG pO2 40 VBG HCO3 13 L VBG Total CO2 14 L VBG O2 Sat (Calc) 61 VBG Base Excess -16 L POC Mix VBG pCO2 Pt Tmp 36.3 L O2 Delivery Device NRB Crit Call To/Read Back Yes Blood Gas Notified Whom padilla Blood Gas Notified Time 02:59:16 Rhythm Strip Rhythm Strip: Sinus Tach Rate: 114 Ectopy: None Radiology Impression Brain CT 11/09/22 02:30 IMPRESSION: 1. No acute intracranial abnormality. 2. Mucosal thickening right maxillary sinus. Electronically Signed: Michael Easley MD at 3:26 EDT , Chest X-Ray 11/09/22 03:10 IMPRESSION: No acute cardiopulmonary abnormality. Electronically Signed: Michael Easley MD at 3:29 EDT , KUB X-Ray 11/09/22 06:00 IMPRESSION: Prominent stomach with thickened rugal folds. Findings may indicate gastritis or an infiltrative process. Consider follow-up with upper endoscopy. Electronically Signed: Gary Mcgraw MD at 7:00 EDT , Charges/Coding Visit Charges Inpatient E&M: 73305 Init Hosp L3
--- NOTE | 2022-11-09 08:09 | TELEMED_ITS ---
[facility] has confirmed receipt of a request for visit. This document confirms receipt of the order initiating the consult. To find the results of the consultation, please view the patient's reports for the scanned Telemed Consult.
[2022-11-09] MEDS: Magnesium Sulfate 4gm/100mL 4 GM/100 ML IV.SOLN. IV (08:34)
[2022-11-09 08:53] LABS: Hemoglobin A1c 5.1 % (3.8-5.6)
[2022-11-09] MEDS: Folic Acid 1 MG Tablet PO (08:54)
[2022-11-09] MEDS: Thiamine Hydrochloride 100 MG Tablet PO (08:55)
[2022-11-09 09:34] LABS: Lactic Acid 1.1 mmol/L (0.4-1.9); Lipase 295 U/L (73-393); Troponin-I HS 9 pg/mL (3.0-78.0)
[2022-11-09 13:22] LABS: Pathologist Review Reviewed
--- NOTE | 2022-11-09 14:29 | CON.PCM.RE_ITS ---
Assessment & Plan Assessment/Plan (1) Acute kidney failure: (2) Acute encephalopathy: (3) Hypokalemia: (4) Alcohol abuse, daily use: PLAN: Plan This is a 52-year-old male with past medical history significant for hypertension, GERD, depression, alcohol abuse who was brought to the emergency room via squad for evaluation of multiple falls, nausea, vomiting, diarrhea and seizure-like activity per squad. CT brain did not show any acute abnormality, chest x-ray clear. Renal ultrasound did not show any hydronephrosis, Maciel catheter was seen within an empty urinary bladder. We were consulted for acute kidney injury. Serum creatinine was 10.90 mg/dL on admission. In reviewing patient's past serum creatinine trends, likely baseline creatinine ranging around 0.8 to 1 mg/dL as of April 2022. BLUE is likely multifactorial from significant volume depletion with concurrent lisinopril/hydrochlorothiazide use, alcohol use, possible NSAIDs (home med list lists meloxicam); also to note blood pressures were low on admission, systolic blood pressure in the 70s which may also be contributing to BLUE. Though patient is having difficult time recalling recent events, no significant uremia noted. Potassium and Magnesium were low and replacements have been given. Bicarb slightly low but at this time there is no urgent need for [employer] TECH. Maciel catheter was placed with very scant amount of urine in tubing however patient is complaining of urgency, the feeling that he has to void and tenderness at suprapubic area therefore we will flush Maciel catheter. Continue to monitor strict I and O. Continue on IVF as ordered. In speaking with nursing staff, though IV fluids/boluses were ordered on admission at this time patient has received about a total of 1.5 L. Patient does appear hypovolemic on exam and recommend to continue with volume expansion. Urinalysis 30 protein, 10 occult blood, 25 leukocyte esterase. Blood cultures are pending. White count was 21.9 on admission and patient is on IV antibiotics, Zosyn. Blood pressures are low but have improved since admission. He is not on any antihypertensives or IV pressors. Recommend avoiding nephrotoxic agents. Labs have been ordered for the morning. Further orders forthcoming as hospitalization evolves, thank you for allowing us participate in the care of Mr. Gamez. HPI Consult Data Date of Consult: 11/09/22 HPI Narrative HPI Narrative: ELIE GAMEZ, is a 52 M with past medical history significant for hypertension, GERD, depression, alcohol abuse who was brought to the emergency room early this morning for evaluation of recent nausea, vomiting, diarrhea and falling at home. In the ER work-up included CT of brain which did not show any acute intracranial abnormality, chest x-ray clear, lab work demonstrated creatinine of 10.9, lactic acid 8.5. Patient was admitted to ICU for gastroenteritis, acute kidney injury, seizure-like activity per squad. We were consulted for acute kidney injury. Patient is alert to name but having a difficult time recalling recent events. Most of information is gathered from chart and nursing staff. Apparently patient had been feeling unwell for some time, having nausea, vomiting and diarrhea. Per patient's daughter in the emergency room apparently patient drinks at least 6 beers per day. Unknown if patient had been taking any NSAIDs. On patient's medication list is listed meloxicam. [facility] Medical History Acute encephalopathy Alcohol abuse, daily use Depression GERD (gastroesophageal reflux disease) HTN (hypertension) Perianal abscess Serotonin syndrome Serotonin syndrome Smoker Urinary retention due to benign prostatic hyperplasia Home Medications omeprazole 40 mg capsule,delayed release 40 mg PO DAILY REFLUX 07/04/15 [History Last Taken 05/30/18] lisinopril 20 mg-hydrochlorothiazide 12.5 mg tablet 1 tab PO DAILY BLOOD PRESSURE 06/17/17 [History Last Taken 05/30/18] finasteride 5 mg tablet 5 mg PO DAILY #30 tabs 06/20/17 [Rx Last Taken 05/30/18] magnesium oxide 400 mg (241.3 mg magnesium) tablet 400 mg PO BIDCM SUPPLEMENT 06/29/17 [History Last Taken 05/30/18] tamsulosin 0.4 mg capsule 0.4 mg PO DAILY@1730 PROSTATE 06/29/17 [History Last Taken 05/30/18] vitamin B12 500 mcg-folic acid 400 mcg tablet 1 tab PO QDAY 01/04/18 [History Last Taken 05/30/18] meloxicam 15 mg tablet 15 mg PO DAILY #21 tabs 09/14/22 [Rx Last Taken Unknown] Allergy/AdvReac Type Severity Reaction Status Date / Time Penicillins Allergy Unknown Verified 04/03/23 02:49 fluoxetine [From Prozac] AdvReac Other Verified 11/09/22 02:49 Family History Sister Diabetes Heart disease Mother CAD (coronary artery disease) Surgical History S/P right knee arthroscopy S/P tonsillectomy Social History Smoking Status: Current every day smoker tobacco type: cigarettes alcohol intake: current alcohol intake frequency: holidays/special occasions only ROS ROS Narrative Unable to obtain Physical Exam Narrative Alert to name. No apparent distress. Having a difficult time recalling recent events. Follows simple commands. S1, S2, rhythm and rate regular. Rate tachycardic Lung sounds clear anteriorly and posteriorly. No wheezes, rhonchi or rales noted Abdomen soft, positive bowel sounds x4 quadrants, hypoactive. Lower abdomen painful to touch. No edema noted to bilateral lower legs, feet, hands Indwelling Maciel catheter with clear, scant urine in tubing Lab / Micro Data Result Diagrams: 11/09/22 06:30 11/09/22 02:31 Labs: Laboratory Results - last 24 hr 11/09/22 02:30: POC Glucose 183 H 11/09/22 02:31: WBC 21.9 H, RBC 4.55 L, Hgb 15.1, Hct 46.4, MCV 102.0 H, MCH 33.2 H, MCHC 32.5, RDW Std Deviation 49.1 H, RDW Coeff of Oleksandr 13.1, Plt Count 802 H*, MPV 10.0, Immature Gran % (Auto) 3.400 H, Neut % (Auto) 84.5 H, Lymph % (Auto) 8.2 L, [place] % (Auto) 2.8, Eos % (Auto) 0.2, Baso % (Auto) 0.9, Absolute Neuts (auto) 18.5 H, Absolute Lymphs (auto) 1.80, Nucleated RBC % 0, Diff Path Review Reviewed, Platelet Estimate MKD INC, Macrocytosis 1+ 11/09/22 02:31: PT 14.6, INR 1.2, APTT 29.2 11/09/22 02:31: Sodium 128 L, Potassium 3.0 L, Chloride 89 L, Carbon Dioxide 14.0 L, Anion Gap 25 H, BUN 55 H, Creatinine 10.90 H*, Estim Creat Clear Calc 7 .84, Est GFR (MDRD) Af Amer 6 L, Est GFR (MDRD) Non-Af 5 L, BUN/Creatinine Ratio 5.0 L, Glucose 257 H, Calcium 9.7, Total Bilirubin 0.40, AST 38 H, ALT 29, Alkaline Phosphatase 152 H, Total Protein 10.8 H, Albumin 4.8, Globulin 6.0 H, Albumin/Globulin Ratio 0.8 L 11/09/22 02:31: Ethyl Alcohol Cancelled 11/09/22 02:31: Magnesium 0.5 L* 11/09/22 02:50: Ammonia 28.0 11/09/22 02:50: Lactic Acid 8.5 H* 11/09/22 03:00: Urine Color Yellow, Urine Clarity Clear, Urine pH 5.0, Ur Specific [place] 1.030, Urine Protein 30 H, Urine Glucose (UA) Normal, Urine Ketones Negative, Urine Occult Blood 10 H, Urine Nitrite Negative, Urine Bilirubin 3 H, Urine Urobilinogen Normal, Ur Leukocyte Esterase 25 H, Urine RBC 0-5 SEEN, Urine WBC 0-5 SEEN, Ur Squamous Epith Cells 0 SEEN, Urine Bacteria RARE, Hyaline Casts 0-5 SEEN, Urine Mucus 0 SEEN 11/09/22 03:55: Ethyl Alcohol < 3.0 11/09/22 06:30: Hemoglobin A1c 5.1 11/09/22 06:30: Hgb 14.7, Hct 46.4 11/09/22 08:47: Lactic Acid 1.1 11/09/22 08:47: Troponin I High Sens 9, Lipase 295 Micro: Microbiology 11/09/22 08:45 Stool Enteric Bacteriology - Final 11/09/22 06:30 Stool Stool Lactoferrin - Final 11/09/22 02:31 Nasal Secretion SARS-CoV-2 & FLU Antigen (Rapid) - Final ABG Data ABG results: ABG 11/09/22 02:57 Specimen Type YAO VBG pH 7.17 L* VBG pO2 40 VBG HCO3 13 L VBG Total CO2 14 L VBG O2 Sat (Calc) 61 VBG Base Excess -16 L POC Mix VBG pCO2 Pt Tmp 36.3 L O2 Delivery Device NRB Crit Call To/Read Back Yes Blood Gas Notified Whom [place] Blood Gas Notified Time 02:59:16 Rhythm Strip Rhythm Strip: Sinus Tach Rate: 114 Ectopy: None Radiology Impression Brain CT 11/09/22 02:30 IMPRESSION: 1. No acute intracranial abnormality. 2. Mucosal thickening right maxillary sinus. Electronically Signed: Michael Easley MD at 3:26 EDT , Chest X-Ray 11/09/22 03:10 IMPRESSION: No acute cardiopulmonary abnormality. Electronically Signed: Michael Esaley MD at 3:29 EDT , KUB X-Ray 11/09/22 06:00 IMPRESSION: Prominent stomach with thickened rugal folds. Findings may indicate gastritis or an infiltrative process. Consider follow-up with upper endoscopy. Electronically Signed: Gary Mcgraw MD at 7:00 EDT , Renal Ultrasound 11/09/22 07:00 IMPRESSION: Normal ultrasound of the kidneys. A Maciel catheter is seen within an empty urinary bladder. Electronically Signed: Anmol Muhammad MD at 10:49 EDT ,
--- NOTE | 2022-11-09 14:45 | CASEMGMT ---
RN?CM?HOUSE WRECKER?CM?to room to meet with patient for initial transition planning/care coordination?assessment.?RN?CM?introduced self and role at [facility].? Pt voices understanding and consents to?assessment?at this time.? Pt resting in bed. Pt is A/O at this time and answers all questions. Care providers, pharmacy, and demographics verified/updated at this time. PCP: Dr Osman Specialists: none Preferred Pharmacy: [facility] Insurance: [employer] Prescription Benefit:? Living Will/HPOA:?Pt does not currently have LW/HCPOA and declines info at this time.? LNOK: 2 adult children: Chester and Martine. Mother, Danielle. Sister, Jessica Living Arrangements: Lives w/his mother in ground-floor apt. Indep w/ADL's and IADL's. Pt states he drives and does his own grocery shopping Transportation:?Pt states drives self and states no transportation concerns at this time.?Sister can assist w/transportation, if needed. DME: ? Denies using any DME and denies needs.? HHC/SNF: No hx of either. Pt wishes to return home and states has no concerns with going home at time of discharge.? Pt states currently smokes 1 PPD, but states that is a lot less than he used to smoke. He drinks beer daily, but has not drank for about a week. When inquired how many beers he usually drinks a day, he states, I don't know and I'm getting sick of people asking me that. SW, Leidy, aware of ETOH abuse. CM?to follow for any discharge planning/needs.? Pt voices no further concerns/needs at this time.? Advised pt to ask for?CM?if any further questions/concerns/needs arise.? Voices understanding. PLAN:??Home. PT/OT evals pending. CM to follow for any discharge needs. Pt started coughing @ end of assessment and then had emesis of black liquid. Emesis bag provided and RN made aware. Lucien BSN?RN?CM
[2022-11-09] MEDS: Ondansetron 4 MG/2 ML Vial IV (14:52)
--- NOTE | 2022-11-09 16:56 | PN_ITS ---
Subjective Subjective Patient seen and examined. He would not really answer any questions and just kept saying he wanted to be changed. Previous nurse, this was pretty much similar to what he had been doing during this admission. He remains hypotensive, and febrile as well as tachypneic and tachycardic. He is on 2L of oxygen Objective Data Objective Data Vital Signs: Vital Signs Temp Pulse Resp BP Pulse Ox O2 Del Method O2 Flow Rate 99.5 F H 127 H 23 H 92/59 L 99 Nasal Cannula 2 11/09/22 16:00 11/09/22 16:00 11/09/22 16:00 11/09/22 16:00 11/09/22 16:00 11/09/22 16:00 11/09/22 16:00 Oxygen Flow Rate (L/min) 2 Oxygen Delivery Method Nasal Cannula Weight: 181 lb 7.047 oz Body Mass Index (BMI) 26.8 Intake & Output: Intake and Output for Last 24 Hours 11/07/22 11/08/22 11/09/22 23:59 23:59 23:59 Intake Total 4682.3 / 4682.3 Output Total 25 Balance 4657.3 / 4657.3 Lab / Micro Data Result Diagrams: 11/09/22 06:30 11/09/22 02:31 Labs: Laboratory Results - last 24 hr 11/09/22 02:30: POC Glucose 183 H 11/09/22 02:31: WBC 21.9 H, RBC 4.55 L, Hgb 15.1, Hct 46.4, MCV 102.0 H, MCH 33.2 H, MCHC 32.5, RDW Std Deviation 49.1 H, RDW Coeff of Oleksandr 13.1, Plt Count 802 H*, MPV 10.0, Immature Gran % (Auto) 3.400 H, Neut % (Auto) 84.5 H, Lymph % (Auto) 8.2 L, [place] % (Auto) 2.8, Eos % (Auto) 0.2, Baso % (Auto) 0.9, Absolute Neuts (auto) 18.5 H, Absolute Lymphs (auto) 1.80, Nucleated RBC % 0, Diff Path Review Reviewed, Platelet Estimate MKD INC, Macrocytosis 1+ 11/09/22 02:31: PT 14.6, INR 1.2, APTT 29.2 11/09/22 02:31: Sodium 128 L, Potassium 3.0 L, Chloride 89 L, Carbon Dioxide 14.0 L, Anion Gap 25 H, BUN 55 H, Creatinine 10.90 H*, Estim Creat Clear Calc 7.84, Est GFR (MDRD) Af Amer 6 L, Est GFR (MDRD) Non-Af 5 L, BUN/Creatinine Ratio 5.0 L, Glucose 257 H, Calcium 9.7, Total Bilirubin 0.40, AST 38 H, ALT 29, Alkaline Phosphatase 152 H, Total Protein 10.8 H, Albumin 4.8, Globulin 6.0 H, Albumin/Globulin Ratio 0.8 L 11/09/22 02:31: Ethyl Alcohol Cancelled 11/09/22 02:31: Magnesium 0.5 L* 11/09/22 02:50: Ammonia 28.0 11/09/22 02:50: Lactic Acid 8.5 H* 11/09/22 03:00: Urine Color Yellow, Urine Clarity Clear, Urine pH 5.0, Ur Specific [place] 1.030, Urine Protein 30 H, Urine Glucose (UA) Normal, Urine Ketones Negative, Urine Occult Blood 10 H, Urine Nitrite Negative, Urine Bilirubin 3 H, Urine Urobilinogen Normal, Ur Leukocyte Esterase 25 H, Urine RBC 0-5 SEEN, Urine WBC 0-5 SEEN, Ur Squamous Epith Cells 0 SEEN, Urine Bacteria RARE, Hyaline Casts 0-5 SEEN, Urine Mucus 0 SEEN 11/09/22 03:55: Ethyl Alcohol < 3.0 11/09/22 06:30: Hemoglobin A1c 5.1 11/09/22 06:30: Hgb 14.7, Hct 46.4 11/09/22 08:47: Lactic Acid 1.1 11/09/22 08:47: Troponin I High Sens 9, Lipase 295 Micro: Microbiology 11/09/22 08:45 Stool Enteric Bacteriology - Final 11/09/22 06:30 Stool Stool Lactoferrin - Final 11/09/22 02:31 Nasal Secretion SARS-CoV-2 & FLU Antigen (Rapid) - Final ABG Data ABG results: ABG 11/09/22 02:57 Specimen Type YAO VBG pH 7.17 L* VBG pO2 40 VBG HCO3 13 L VBG Total CO2 14 L VBG O2 Sat (Calc) 61 VBG Base Excess -16 L POC Mix VBG pCO2 Pt Tmp 36.3 L O2 Delivery Device NRB Crit Call To/Read Back Yes Blood Gas Notified Whom [place] Blood Gas Notified Time 02:59:16 Radiography Diagnostic Testing: Radiology Impression Brain CT 11/09/22 02:30 IMPRESSION: 1. No acute intracranial abnormality. 2. Mucosal thickening right maxillary sinus. Electronically Signed: Michael Easley MD at 3:26 EDT , Chest X-Ray 11/09/22 03:10 IMPRESSION: No acute cardiopulmonary abnormality. Electronically Signed: Michael Easley MD at 3:29 EDT , KUB X-Ray 11/09/22 06:00 IMPRESSION: Prominent stomach with thickened rugal folds. Findings may indicate gastritis or an infiltrative process. Consider follow-up with upper endoscopy. Electronically Signed: Gary Mcgraw MD at 7:00 EDT , Renal Ultrasound 11/09/22 07:00 IMPRESSION: Normal ultrasound of the kidneys. A Maciel catheter is seen within an empty urinary bladder. Electronically Signed: Anmol Muhammad MD at 10:49 EDT , Rhythm Strip Rhythm Strip: Sinus Tach Rate: 114 Ectopy: None Physical Exam Const alert Constitutional Narrative: restless, not very cooperative with answering questions HEENT normocephalic, head/scalp atraumatic and moist oral mucous membranes Eyes PERRL and EOMs intact bilaterally Neck supple and no JVD Lymph Lymphatic: no lymphadenopathy noted and no lymphedema noted Resp Resp Narrative: mildly diminished breath sounds bibasally. Tachypneic. No wheezes or crackles. Cardio regular rhythm, S1 normal heart sound, S2 normal heart sound and no murmurs Cardio Narrative: tachypneic GI normal to inspection, nondistended, normoactive bowel sounds, soft to palpation, non-tender and non-distended Extremity normal capillary refill, no clubbing, cyanosis or edema and no calf tenderness General Extremity: no tenderness to palpation of joints or extremities Skin General Skin Exam: no breakdown Neuro CN's II-XII intact bilaterally, no focal motor deficits, no sensory deficits noted and deep tendon reflexes 2+ bilaterally Psych Psych Narrative: restless Assessment & Plan Assessment/Plan (1) Sepsis: (2) Hypokalemia: (3) Acute alteration in mental status: (4) Acute hypotension: (5) Seizure in response to acute event: PLAN: Plan #Sepsis * Patient was hypotensive on admission but this responded a bit to IV fluids. His blood pressure once in the 90s but MAP is more than 65 * He remains tachypneic and tachycardic and has elevated white cell count. Lactic acid was slightly elevated at more than 8.5. * On IV Zosyn. Critical care on board. * #Seizure: * Thought to be due to alcohol withdrawal versus infection. * CT of the brain showed mucosal thickening of the right maxillary sinuses but did not show any other acute intracranial pathology. * EEG ordered. * IV Ativan as needed #Hyponatremia: Sodium was 128 on admission. Nephrology consulted. #BLUE: Creatinine was 10 on admission. Baseline creatinine is less than 1. Nephrology consulted. Likely prerenal. Being hydrated with IV fluids. Will monitor. #Anion gap metabolic acidosis: Likely due to lactic acid and uremia. Been hydrated with IV fluids. Nephrology consulted. Anion gap is 25. #Elevated liver enzymes * Liver enzymes only minimally elevated. Will monitor. #History of chronic alcohol use disorder * At risk of withdrawal. On CIWA protocol with Ativan. On thiamine and folic acid as well as multivitamin. #Hypomagnesemia and hypokalemia: will replace aggressively and trend. Hypertension: Hold BP meds on account of hypotension. #Thrombocytosis: Platelets are up to 822. Will monitor. #DVT prophylaxis: SCDs. Charges/Coding Visit Charges Inpatient E&M: 40522 Subs Hosp L3
[2022-11-09] MEDS: Acetaminophen 325 MG Tablet 650 MG PO (17:15)
--- NOTE | 2022-11-09 18:53 | EX.PCM.CON.G ---
HPI Consult Data Date of Consult: 11/09/22 HPI Narrative Reason for Consultation: GI bleed HPI Narrative: EILE GAMEZ, is a 52 M who presents with nausea vomiting and diarrhea. He has a significant history of alcoholism; BPH and hypertension who presented to the emergency department with a 2-week history of progressively worsening nausea, vomiting and diarrhea that started about 2 weeks ago.? Associated with his symptoms is lethargy.? When paramedics went to pick patient patient up he had a tonic clonic seizures and became even more lethargic thereafter.? Reportedly in the past patient has not had any seizures. Patient drinks alcohol a lot but her daughter thinks that in the past 48 before presentation patient has cut down.? Per daughter patient drinks about 6 packs beer per day. Patient reported that he drinks about 6 packs beer about 2 times in a week. Two days before presentation patient fell 4 times. At the emergency department patient was found to have a poor urine output even after receiving 4 L of normal saline. Patient was found to have bloody loose bowel movements at the ED. History was taken predominantly from patient's daughter who was at the bedside.? Biochemical analysis did not note that his white blood cell count was increased to 21,000. He had a CT scan of the abdomen pelvis that showed some thickening of the stomach possibly secondary to gastritis or underlying infiltrative process. I was consulted for evaluation of his upper GI tract. [facility] Medical History Acute encephalopathy Alcohol abuse, daily use Depression GERD (gastroesophageal reflux disease) HTN (hypertension) Perianal abscess Serotonin syndrome Serotonin syndrome Smoker Urinary retention due to benign prostatic hyperplasia Home Medications omeprazole 40 mg capsule,delayed release 40 mg PO DAILY REFLUX 07/04/15 [History Last Taken 05/30/18] lisinopril 20 mg-hydrochlorothiazide 12.5 mg tablet 1 tab PO DAILY BLOOD PRESSURE 06/17/17 [History Last Taken 05/30/18] finasteride 5 mg tablet 5 mg PO DAILY #30 tabs 06/20/17 [Rx Last Taken 05/30/18] magnesium oxide 400 mg (241.3 mg magnesium) tablet 400 mg PO BIDCM SUPPLEMENT 06/29/17 [History Last Taken 05/30/18] tamsulosin 0.4 mg capsule 0.4 mg PO DAILY@1730 PROSTATE 06/29/17 [History Last Taken 05/30/18] vitamin B12 500 mcg-folic acid 400 mcg tablet 1 tab PO QDAY 01/04/18 [History Last Taken 05/30/18] meloxicam 15 mg tablet 15 mg PO DAILY #21 tabs 09/14/22 [Rx Last Taken Unknown] Allergy/AdvReac Type Severity Reaction Status Date / Time Penicillins Allergy Unknown Verified 11/09/22 02:49 fluoxetine [From Prozac] AdvReac Other Verified 11/09/22 02:49 Family History Sister Diabetes Heart disease Mother CAD (coronary artery disease) Surgical History S/P right knee arthroscopy S/P tonsillectomy Social History Smoking Status: Current every day smoker tobacco type: cigarettes alcohol intake: current alcohol intake frequency: holidays/special occasions only ROS ROS Narrative Unable to obtain Physical Exam Narrative Alert to name. No apparent distress. Having a difficult time recalling recent events. Follows simple commands. S1, S2, rhythm and rate regular. Rate tachycardic Lung sounds clear anteriorly and posteriorly. No wheezes, rhonchi or rales noted Abdomen soft, positive bowel sounds x4 quadrants, hypoactive. Lower abdomen painful to touch. No edema noted to bilateral lower legs, feet, hands Indwelling Maciel catheter with clear, scant urine in tubing Lab / Micro Data Result Diagrams: 11/09/22 06:30 11/09/22 02:31 Labs: Laboratory Results - last 24 hr 11/09/22 02:30: POC Glucose 183 H 11/09/22 02:31: WBC 21.9 H, RBC 4.55 L, Hgb 15.1, Hct 46.4, MCV 102.0 H, MCH 33.2 H, MCHC 32.5, RDW Std Deviation 49.1 H, RDW Coeff of Oleksandr 13.1, Plt Count 802 H*, MPV 10.0, Immature Gran % (Auto) 3.400 H, Neut % (Auto) 84.5 H, Lymph % (Auto) 8.2 L, [place] % (Auto) 2.8, Eos % (Auto) 0.2, Baso % (Auto) 0.9, Absolute Neuts (auto) 18.5 H, Absolute Lymphs (auto) 1.80, Nucleated RBC % 0, Diff Path Review Reviewed, Platelet Estimate MKD INC, Macrocytosis 1+ 11/09/22 02:31: PT 14.6, INR 1.2, APTT 29.2 11/09/22 02:31: Sodium 128 L, Potassium 3.0 L, Chloride 89 L, Carbon Dioxide 14.0 L, Anion Gap 25 H, BUN 55 H, Creatinine 10.90 H*, Estim Creat Clear Calc 7.84, Est GFR (MDRD) Af Amer 6 L, Est GFR (MDRD) Non-Af 5 L, BUN/Creatinine Ratio 5.0 L, Glucose 257 H, Calcium 9.7, Total Bilirubin 0.40, AST 38 H, ALT 29, Alkaline Phosphatase 152 H, Total Protein 10.8 H, Albumin 4.8, Globulin 6.0 H, Albumin/Globulin Ratio 0.8 L 11/09/22 02:31: Ethyl Alcohol Cancelled 11/09/22 02:31: Magnesium 0.5 L* 11/09/22 02:50: Ammonia 28.0 11/09/22 02:50: Lactic Acid 8.5 H* 11/09/22 03:00: Urine Color Yellow, Urine Clarity Clear, Urine pH 5.0, Ur Specific [place] 1.030, Urine Protein 30 H, Urine Glucose (UA) Normal, Urine Ketones Negative, Urine Occult Blood 10 H, Urine Nitrite Negative, Urine Bilirubin 3 H, Urine Urobilinogen Normal, Ur Leukocyte Esterase 25 H, Urine RBC 0-5 SEEN, Urine WBC 0-5 SEEN, Ur Squamous Epith Cells 0 SEEN, Urine Bacteria RARE, Hyaline Casts 0-5 SEEN, Urine Mucus 0 SEEN 11/09/22 03:55: Ethyl Alcohol < 3.0 11/09/22 06:30: Hemoglobin A1c 5.1 11/09/22 06:30: Hgb 14.7, Hct 46.4 11/09/22 08:47: Lactic Acid 1.1 11/09/22 08:47: Troponin I High Sens 9, Lipase 295 Micro: Microbiology 11/09/22 08:45 Stool Enteric Bacteriology - Final 11/09/22 06:30 Stool Stool Lactoferrin - Final 11/09/22 02:31 Nasal Secretion SARS-CoV-2 & FLU Antigen (Rapid) - Final ABG Data ABG results: ABG 11/09/22 02:57 Specimen Type YAO VBG pH 7.17 L* VBG pO2 40 VBG HCO3 13 L VBG Total CO2 14 L VBG O2 Sat (Calc) 61 VBG Base Excess -16 L POC Mix VBG pCO2 Pt Tmp 36.3 L O2 Delivery Device NRB Crit Call To/Read Back Yes Blood Gas Notified Whom [place] Blood Gas Notified Time 02:59:16 Rhythm Strip Rhythm Strip: Sinus Tach Rate: 114 Ectopy: None Radiology Impression Brain CT 11/09/22 02:30 IMPRESSION: 1. No acute intracranial abnormality. 2. Mucosal thickening right maxillary sinus. Electronically Signed: Michael Easley MD at 3:26 EDT , Chest X-Ray 11/09/22 03:10 IMPRESSION: No acute cardiopulmonary abnormality. Electronically Signed: Michael Easley MD at 3:29 EDT , KUB X-Ray 11/09/22 06:00 IMPRESSION: Prominent stomach with thickened rugal folds. Findings may indicate gastritis or an infiltrative process. Consider follow-up with upper endoscopy. Electronically Signed: Gary Mcgraw MD at 7:00 EDT , Renal Ultrasound 11/09/22 07:00 IMPRESSION: Normal ultrasound of the kidneys. A Maciel catheter is seen within an empty urinary bladder. Electronically Signed: Anmol Muhammad MD at 10:49 EDT , Assessment & Plan Assessment/Plan (1) Abnormal CT scan: PLAN: Differential diagnosis with thickening in the stomach is infiltrative process, portal gastropathy, alcoholic associated gastritis, peptic ulcer disease. He should undergo an upper endoscopy to evaluate his upper GI tract. Recommend PPI 40 mg of Protonix IV every 12 hours. (2) Alcoholism: PLAN: Patient is not showing any signs of delirium tremens at this time. He is on CIWA protocol. Check electrolytes and replete accordingly. Charges/Coding Visit Charges Inpatient E&M: 30038 Init Hosp L3
[2022-11-09] MEDS: LORazepam 1 MG Tablet 2 MG PO (21:52)
[2022-11-10] VITALS (35 sets, daily range): BP systolic 61–119; BP diastolic 40–78; PULSE 82–117; RESP 13–30; TEMP 36.4–37.2; O2SAT 95–100; BMI 27.4
[2022-11-10] MEDS: Ondansetron 4 MG/2 ML Vial IV (02:27)
[2022-11-10] MEDS: 0.9% Normal Saline 1,000 ML 999 ML IV ×2 (03:36→08:28)
[2022-11-10 04:05] LABS: Absolute Lymphocyte Count 1.99 X10^3/uL (0.83-4.51); Absolute Neutrophil Count 13.1 X10^3/uL (2.0-7.7); Basophil# 0.09 X10^3/uL; Basophil% 0.5 % (0-1); Eosinophil# 0.05 X10^3/uL; Eosinophils% 0.3 % (0-5); Hematocrit 35.9 % (40-54); Hemoglobin 11.6 g/dL (13.0-16.5); Lymphocyte # 1.99 X10^3/ul (0.83-4.51); Lymphocyte % 11.9 % (19-41); Mean Corp Hgb Conc 32.3 g/dL (32-36); Mean Corpuscular Hgb 32.8 pg (27.0-32.0); Mean Corpuscular Volume 101.4 fL (80-94); Mean Platelet Vol. 9.1 fl (6.2-12.0); Monocyte# 1.42 X10^3/uL; Monocyte% 8.5 % (0-10); NRBC Flagged by Analyzer 0 % (0-5); Neutrophil # 13.08 X10^3/uL (2.7-7.7); Neutrophil % 78.6 % (47-70); Platelet Count 523 K/mm3 (150-450); RBC Distribution Width CV 13.1 % (11.6-14.6); Red Blood Count 3.54 M/mm3 (4.6-6.2); White Blood Count 16.7 K/mm3 (4.4-11.0)
[2022-11-10 04:38] LABS: ALB/GLOB Ratio 0.7 RATIO (0.9-2.4); AST(SGOT) 118 U/L (15-37); Alanine Aminotransfer ALT/SGPT 24 U/L (16-61); Albumin, Serum 2.7 g/dL (3.2-5.0); Alkaline Phosphatase 74 U/L (45-117); Anion Gap 15 (5-15); BUN 69 mg/dL (7-18); BUN/Creat Ratio 6.6 RATIO (10-20); Calcium,Total 6.8 mg/dL (8.5-10.1); Chloride 113 mmol/L (98-107); EST Glomerular Filtration Rate 6 mL/min (>60); Est Glom Filt Rate - Afr Amer 7 mL/min (>60); Estimated Creatinine Clearance 8.14 ml/min; Globulin 3.7 g/dL (2.2-4.2); Glucose 92 mg/dL (74-106); Potassium 4.2 mmol/L (3.5-5.1); Protein, Total 6.4 g/dL (6.4-8.2); Sodium Level 139 mmol/L (136-145)
[2022-11-10] MEDS: 0.9% Normal Saline 1,000 ML 100 ML IV (07:29)
--- NOTE | 2022-11-10 07:34 | PCM.PN.INT ---
Assessment & Plan Assessment/Plan (1) Sepsis: PLAN: Plan RECOMMENDATIONS: 1. Continue supplemental IV fluid hydration. 2. Aggressive electrolyte repletion. 3. Empiric antimicrobials as ordered, pending finalized infectious work-up. 4. CIWA protocol with thiamine and folate. 5. Seizure precautions with as needed Ativan. 6. Tentative plans for EGD today. IMPRESSIONS: 1. Sepsis The patient presented to the hospital with sepsis due to probable GI source of infection with acute sepsis related organ dysfunction as evidenced by encephalopathy, acute kidney injury and lactic acidemia. The patient has received supplemental IV fluid hydration with tenuous hemodynamics. I do suspect that the patient was significantly intravascular volume depleted upon presentation. Plan to continue current supportive measures. If the patient's hemodynamic status decompensates, Levophed can be initiated. Plan to continue empiric antimicrobials as ordered. Tentative plans for upper endoscopic evaluation today by gastroenterology. 2. Hyponatremia/hypokalemia/hypomagnesemia Improving. Likely secondary to generalized hypovolemia, coupled with chronic alcohol dependency. Plan to continue IV fluid hydration as tolerated over along with aggressive electrolyte repletion. 3. Acute kidney injury Most likely prerenal in etiology in the setting of #1 coupled with intravascular volume depletion. The patient has received supplemental IV fluids, which will be continued as tolerated. Renal ultrasound was unremarkable. Plan to continue to monitor urine output for now. No current indication for renal replacement therapy. Nephrology is following to assist with medical management. 4. Encephalopathy with questionable new onset seizure activity Most likely metabolic in etiology. However, I cannot discount the possibility of a postictal state. The patient denied a prior seizure history. Plan to continue seizure precautions along with as needed Ativan. EEG did not demonstrate any epileptiform discharges. 5. History of alcohol dependency/BPH/hypertension/GERD Complicates care, management, recovery and prognosis. Continue CIWA protocol with thiamine and folate repletion. Monitor for signs of alcohol withdrawal. Continue to hold antihypertensives. This note was generated with [employer] dictation software. It may contain incorrect words, spelling, and punctuation that were not noted in checking the note before signing. Subjective Subjective The patient was seen and examined at the bedside this morning. Events from the last 24 hours have been reviewed. The patient is currently afebrile, hemodynamically stable and maintaining appropriate oxygen saturations on room air. The patient did have some soft blood pressures overnight, which required additional IV fluid resuscitation. He never had to be started on vasopressor support. The patient is currently documented to be overall net +8 L for the hospitalization. White count remains elevated at 16,000. Bicarbonate remains low at 11 with a BUN of 69 and creatinine of 10.5. The patient was evaluated by gastroenterology yesterday with tentative plans for upper endoscopy. Objective Data Objective Data The patient's most recent lab work, culture data and imaging studies have all been personally reviewed. Enteric pathogen panel was negative. Blood cultures are pending. Vital Signs: Vital Signs Temp Pulse Resp BP Pulse Ox O2 Del Method O2 Flow Rate 98.0 F 89 17 82/53 L 97 Room Air 2 11/10/22 07:00 11/10/22 07:00 11/10/22 07:00 11/10/22 07:00 11/10/22 07:00 11/10/22 07:00 11/09/22 22:00 Oxygen Flow Rate (L/min) 2 Oxygen Delivery Method Room Air Weight: 185 lb 13.595 oz Body Mass Index (BMI) 27.4 Intake & Output: Intake and Output for Last 24 Hours 11/08/22 11/09/22 11/10/22 23:59 23:59 23:59 Intake Total 5682.3 / 5682.3 2470 / 2470 Output Total 70 / 70 Balance 5612.3 / 5612.3 247 / 2470 Lab / Micro Data Attestation: I reviewed the patient's lab results. Result Diagrams: 11/10/22 03:54 11/10/22 03:54 Labs: Laboratory Results - last 24 hr 11/09/22 02:31: Diff Path Review Reviewed 11/09/22 06:30: Hemoglobin A1c 5.1 11/09/22 08:47: Lactic Acid 1.1 11/09/22 08:47: Troponin I High Sens 9, Lipase 295 11/10/22 03:54: WBC 16.7 H, RBC 3.54 L, Hgb 11.6 L, Hct 35.9 L, MCV 101.4 H, MCH 32.8 H, MCHC 32.3, RDW Std Deviation 49.0 H, RDW Coeff of Oleksandr 13.1, Plt Count 523 H, MPV 9.1, Immature Gran % (Auto) 0.200, Neut % (Auto) 78.6 H, Lymph % (Auto) 11.9 L, [place] % (Auto) 8.5, Eos % (Auto) 0.3, Baso % (Auto) 0.5, Absolute Neuts (auto) 13.1 H, Absolute Lymphs (auto) 1.99, Nucleated RBC % 0 11/10/22 03:54: Sodium 139, Potassium 4.2, Chloride 113 H, Carbon Dioxide 11.0 L, Anion Gap 15, BUN 69 H, Creatinine 10.50 H*, Estim Creat Clear Calc 8.14, Est GFR (MDRD) Af Amer 7 L, Est GFR (MDRD) Non-Af 6 L, BUN/Creatinine Ratio 6.6 L, Glucose 92, Calcium 6.8 L, Total Bilirubin 0.20, AST 118 H, ALT 24, Alkaline Phosphatase 74, Total Protein 6.4, Albumin 2.7 L, Globulin 3.7, Albumin/Globulin Ratio 0.7 L Micro: Microbiology 11/09/22 08:45 Stool Enteric Bacteriology - Final 11/09/22 06:30 Stool Stool Lactoferrin - Final 11/09/22 02:31 Nasal Secretion SARS-CoV-2 & FLU Antigen (Rapid) - Final Radiography Diagnostic Testing: Radiology Impression Renal Ultrasound 11/09/22 07:00 IMPRESSION: Normal ultrasound of the kidneys. A Maciel catheter is seen within an empty urinary bladder. Electronically Signed: Anmol Muhammad MD at 10:49 EDT Reading Location ID and State: [facility] / [place] , Service support , Rhythm Strip Rhythm Strip: Sinus Tach Rate: 114 Ectopy: None Physical Exam Const alert and no apparent distress General Appearance: cooperative HEENT normocephalic and head/scalp atraumatic Eyes PERRL, EOMs intact bilaterally and conjunctivae normal Neck supple General: trachea midline Chest inspection of chest normal Resp normal respiratory effort Auscultation: Negative for rales, rhonchi or wheezes Cardio S1 normal heart sound and S2 normal heart sound Rate: tachycardic GI normal to inspection, nondistended, normoactive bowel sounds Extremity no clubbing, cyanosis or edema Skin no rashes or lesions noted Neuro CN's II-XII intact bilaterally and no focal motor deficits Psych cooperative and affect normal Charges/Coding Visit Charges Inpatient E&M: 52576 Subs Hosp L3
[2022-11-10] MEDS: Lactated Ringers 1,000 ML 125 ML IV ×2 (11:33→21:02)
--- NOTE | 2022-11-10 11:46 | PCM.PN.REN ---
Subjective Subjective no new complaints. Blood pressure remains low. No significant urine output. Creatinine is about the same. Scheduled for endoscopy today. Objective Data Objective Data Vital Signs: Vital Signs Temp Pulse Resp BP Pulse Ox O2 Del Method O2 Flow Rate 97.9 F 109 H 28 H 92/49 L 98 Room Air 2 11/10/22 11:00 11/10/22 11:00 11/10/22 11:00 11/10/22 11:43 11/10/22 11:00 11/10/22 11:00 11/09/22 22:00 Oxygen Flow Rate (L/min) 2 Oxygen Delivery Method Room Air Weight: 84.3 kg Body Mass Index (BMI) 27.4 Intake & Output: Intake and Output for Last 24 Hours 11/08/22 11/09/22 11/10/22 23:59 23:59 23:59 Intake Total 5682.3 / 5682.3 3881.67 / 3881.67 Output Total 70 / 70 20 / 20 Balance 5612.3 / 5612.3 3861.67 / 3861.67 Lab / Micro Data Result Diagrams: 11/10/22 03:54 11/10/22 03:54 Labs: Laboratory Results - last 24 hr 11/09/22 02:31: Diff Path Review Reviewed 11/10/22 03:54: WBC 16.7 H, RBC 3.54 L, Hgb 11.6 L, Hct 35.9 L, MCV 101.4 H, MCH 32.8 H, MCHC 32.3, RDW Std Deviation 49.0 H, RDW Coeff of Oleksandr 13.1, Plt Count 523 H, MPV 9.1, Immature Gran % (Auto) 0.200, Neut % (Auto) 78.6 H, Lymph % (Auto) 11.9 L, [place] % (Auto) 8.5, Eos % (Auto) 0.3, Baso % (Auto) 0.5, Absolute Neuts (auto) 13.1 H, Absolute Lymphs (auto) 1.99, Nucleated RBC % 0 11/10/22 03:54: Sodium 139, Potassium 4.2, Chloride 113 H, Carbon Dioxide 11.0 L, Anion Gap 15, BUN 69 H, Creatinine 10.50 H*, Estim Creat Clear Calc 8.14, Est GFR (MDRD) Af Amer 7 L, Est GFR (MDRD) Non-Af 6 L, BUN/Creatinine Ratio 6.6 L, Glucose 92, Calcium 6.8 L, Total Bilirubin 0.20, AST 118 H, ALT 24, Alkaline Phosphatase 74, Total Protein 6.4, Albumin 2.7 L, Globulin 3.7, Albumin/Globulin Ratio 0.7 L Micro: Microbiology 11/09/22 03:00 Urine, Catheterized Urine Culture - Preliminary Culture exhibits no growth. 11/09/22 08:45 Stool Enteric Bacteriology - Final 11/09/22 06:30 Stool Stool Lactoferrin - Final 11/09/22 02:31 Nasal Secretion SARS-CoV-2 & FLU Antigen (Rapid) - Final Rhythm Strip Rhythm Strip: Sinus Tach Rate: 114 Ectopy: None Physical Exam Narrative Alert awake oriented x 3 no obvious distress no pallor no icterus no JVD s1s2 no murmurs lungs clear abdomen soft no organomegaly no edema no cyanosis bruce + Assessment & Plan Assessment/Plan (1) Acute kidney failure: PLAN: Baseline creatinine is normal. Renal ultrasound without any hydronephrosis. Urinalysis is not impressive. Most likely ischemic ATN due to low blood pressure. As per family, he has been sick for about 2 weeks now. Urine output is minimal. Sttill some dry side. Continue IV fluids, change to Ringer's lactate. No acute indications for dialysis today. We'll try to treat acidosis with IV fluids for now. acidosis. Elevated. Lactate has resolved. Likely due to BLUE. Change IV fluids to Ringer's lactate. Discussed with family at bedside Discussed with ICU attending (2) Acute encephalopathy: (3) Hypokalemia: (4) Alcohol abuse, daily use: PLAN: Plan
[2022-11-10 14:17] LABS: M R Staph aureus DNA By PCR Negative (Negative); Probe Check PASS; Specimen Processing Control PASS
--- NOTE | 2022-11-10 14:44 | PN_ITS ---
Subjective Subjective Patient seen and examined. His daughter and friend were by his bedside. He complained of feeling hungry and wanted ice chips. HE is currently NPO for EGD today. Review of systems otherwise negative. He remains hypotensive, tachycardic and tachypneic. Review of systems is otherwise negative. Objective Data Objective Data Vital Signs: Vital Signs Temp Pulse Resp BP Pulse Ox O2 Del Method O2 Flow Rate 97.8 F 115 H 20 H 92/53 L 99 Room Air 2 11/10/22 14:00 11/10/22 14:00 11/10/22 14:00 11/10/22 14:00 11/10/22 14:00 11/10/22 14:00 11/09/22 22:00 Oxygen Flow Rate (L/min) 2 Oxygen Delivery Method Room Air Weight: 185 lb 13.595 oz Body Mass Index (BMI) 27.4 Intake & Output: Intake and Output for Last 24 Hours 11/08/22 11/09/22 11/10/22 23:59 23:59 23:59 Intake Total 5682.3 / 5682.3 3953.13 / 3953.13 Output Total 70 / 70 20 / 20 Balance 5612.3 / 5612.3 3933.13 / 3933.13 Lab / Micro Data Result Diagrams: 11/10/22 03:54 11/10/22 03:54 Labs: Laboratory Results - last 24 hr 11/10/22 03:54: WBC 16.7 H, RBC 3.54 L, Hgb 11.6 L, Hct 35.9 L, MCV 101.4 H, MCH 32.8 H, MCHC 32.3, RDW Std Deviation 49.0 H, RDW Coeff of Oleksandr 13.1, Plt Count 523 H, MPV 9.1, Immature Gran % (Auto) 0.200, Neut % (Auto) 78.6 H, Lymph % (Auto) 11.9 L, [place] % (Auto) 8.5, Eos % (Auto) 0.3, Baso % (Auto) 0.5, Absolute Neuts (auto) 13.1 H, Absolute Lymphs (auto) 1.99, Nucleated RBC % 0 11/10/22 03:54: Sodium 139, Potassium 4.2, Chloride 113 H, Carbon Dioxide 11.0 L , Anion Gap 15, BUN 69 H, Creatinine 10.50 H*, Estim Creat Clear Calc 8.14, Est GFR (MDRD) Af Amer 7 L, Est GFR (MDRD) Non-Af 6 L, BUN/Creatinine Ratio 6.6 L, Glucose 92, Calcium 6.8 L, Total Bilirubin 0.20, AST 118 H, ALT 24, Alkaline Phosphatase 74, Total Protein 6.4, Albumin 2.7 L, Globulin 3.7, Albumin/Globulin Ratio 0.7 L 11/10/22 09:58: MRSA (PCR) Negative Micro: Microbiology 11/09/22 03:00 Urine, Catheterized Urine Culture - Preliminary Culture exhibits no growth. 11/09/22 08:45 Stool Enteric Bacteriology - Final 11/09/22 06:30 Stool Stool Lactoferrin - Final 11/09/22 02:31 Nasal Secretion SARS-CoV-2 & FLU Antigen (Rapid) - Final Rhythm Strip Rhythm Strip: Sinus Tach Rate: 114 Ectopy: None Physical Exam Const alert Constitutional Narrative: restless HEENT normocephalic, head/scalp atraumatic and moist oral mucous membranes Eyes PERRL and EOMs intact bilaterally Neck no lymphadenopathy, supple and no JVD Lymph Lymphatic: no lymphadenopathy noted and no lymphedema noted Resp Resp Narrative: mildly diminished breath sounds bibasally. Tachypneic. No wheezes or crackles. Cardio regular rhythm, S1 normal heart sound, S2 normal heart sound and no murmurs Cardio Narrative: tachypneic GI normal to inspection, nondistended, normoactive bowel sounds, soft to palpation, non-tender and non-distended Extremity normal capillary refill, no clubbing, cyanosis or edema and no calf tenderness General Extremity: no tenderness to palpation of joints or extremities Skin General Skin Exam: no breakdown Neuro CN's II-XII intact bilaterally, no focal motor deficits, no sensory deficits noted and deep tendon reflexes 2+ bilaterally Psych Psych Narrative: restless Assessment & Plan Assessment/Plan (1) Sepsis: (2) Hypokalemia: (3) Acute alteration in mental status: (4) Acute hypotension: (5) Seizure in response to acute event: PLAN: Plan #Septic shock * remains hypotensive.hasnt been responding to IVF * patient placed on levophed low dose by critical care today * on IV zosyn * critical care and ID on board * * #Seizure: * Thought to be due to alcohol withdrawal versus infection. * CT of the brain showed mucosal thickening of the right maxillary sinuses but did not show any other acute intracranial pathology. * EEG didnt show any evidence of seizure disorder * IV Ativan as needed #Hyponatremia: resolved. Na is now 139. #BLUE: * Cr today is still elevate at 10.5 * has minimal urine output. * bicarb is 11. Creatinine was 10 on admission. * nephrology on board * Baseline creatinine is less than 1. * management as per nephrology * #non Anion gap metabolic acidosis: * Likely due to lactic acid and uremia. * Been hydrated with IV fluids. * anion gap today is down to 15 * nephro on board * on bicarb. #Abdominal pain * keeps complaining of abdominal pain. concern for peptic ulcer disease * was admitted with bloody diarrhea. * CT o the abdomen showed thickening of the stomach. * GI on board; for EGD today. * on IV pantoprazole * #Elevated liver enzymes * Liver enzymes only minimally elevated. Will monitor. #History of chronic alcohol use disorder * At risk of withdrawal. On CIWA protocol with Ativan. On thiamine and folic acid as well as multivitamin. #Hypomagnesemia and hypokalemia: will replace aggressively and trend. Hypertension: Hold BP meds on account of hypotension. #Thrombocytosis: Platelets are down to 523 today. Will monitor. #DVT prophylaxis: SCDs. Total time spent on evaluation and management of patient, reviewing chart and specialist notes, discussing plan with patient, his daughter and friend discussion with nursing and ancillary staff as well as documentation: 52 mins Charges/Coding Visit Charges Inpatient E&M: 54565 [facility] Hosp L3
--- NOTE | 2022-11-10 15:45 | NURSING ---
Patient taken to Endoscopy at this time.
[2022-11-10] MEDS: Lactated Ringers 1,000 ML 15 ML IV (15:58)
--- NOTE | 2022-11-10 17:04 | OP.CCLET_ITS ---
11/10/2022 Zia Osman [address] [place] [address] Re : Upper GI endoscopy procedure for Hansel Love Dear Dr. Osman This procedure was performed on Thursday, November 10, 2022. My impressions and recommendations are as follows: Impressions : - LA Grade C erosive esophagitis. Treated with a heater probe. - Oozing gastric ulcers with a visible vessel. Injected. Clips were placed. Treated with a heater probe. - No gross lesions in the duodenal bulb. - No specimens collected. Recommendations : - Return patient to ICU for ongoing care. - Clear liquid diet today. - Administer an IV bolus of 50 micrograms of octreotide followed by an infusion of 50 micrograms per hour today. - Give Protonix (pantoprazole): initiate therapy with 80 mg IV bolus, then 8 mg/hr IV by continuous infusion. - Continue present medications. - No aspirin, ibuprofen, naproxen, or other non-steroidal anti-inflammatory drugs for 4 weeks. My findings are described in the full procedure note, which is enclosed. If I can be of further assistance, please feel free to contact me at . Sincerely, Gino Briscoe, 11/10/2022 5:03:25 PM This report has been signed electronically.
--- NOTE | 2022-11-10 17:04 | OP.EGD_ITS ---
Patient Name: Hansel Love Procedure Date: 11/10/2022 4:23 PM Date of : 1970 Age: 52 Procedure: Upper GI endoscopy Indications: Coffee-ground emesis Providers: Gino Briscoe DO Medicines: Monitored Anesthesia Care Patient Profile: This is a 52 year old male. Refer to note in patient chart for documentation of history and physical. Patient has symptoms of acute vomiting. Complications: No immediate complications. Procedure: Pre-Anesthesia Assessment: - Prior to the procedure, a History and Physical was performed, and patient medications and allergies were reviewed. The patient is competent. The risks and benefits of the procedure and the sedation options and risks were discussed with the patient. All questions were answered and informed consent was obtained. Patient identification and proposed procedure were verified by the physician. Mental Status Examination: normal. Prophylactic Antibiotics: The patient does not require prophylactic antibiotics. Prior Anticoagulants: The patient has taken no previous anticoagulant or antiplatelet agents. ASA Grade Assessment: II - A patient with mild systemic disease. After reviewing the risks and benefits, the patient was deemed in satisfactory condition to undergo the procedure. The anesthesia plan was to use monitored anesthesia care (MAC). Immediately prior to administration of medications, the patient was re-assessed for adequacy to receive sedatives. The heart rate, respiratory rate, oxygen saturations, blood pressure, adequacy of pulmonary ventilation, and response to care were monitored throughout the procedure. The physical status of the patient was re-assessed after the procedure. After obtaining informed consent, the endoscope was passed under direct vision. Throughout the procedure, the patient's blood pressure, pulse, and oxygen saturations were monitored continuously. The gastroscope was introduced through the mouth, and advanced to the second part of duodenum. The upper GI endoscopy was accomplished without difficulty. The patient tolerated the procedure well. Scope In: 4:43:51 PM Scope Out: 4:56:08 PM Total Procedure Duration Time 0 hours 12 minutes 17 seconds Findings: LA Grade C (one or more mucosal breaks continuous between tops of 2 or more mucosal folds, less than 75% circumference) esophagitis with bleeding was found 36 to 38 cm from the incisors. Coagulation for hemostasis using heater probe was successful. Estimated blood loss was minimal. Three oozing cratered gastric ulcers with a visible vessel were found in the gastric body. The largest lesion was 8 mm in largest dimension. Area was successfully injected with 5 mL of a 1:10,000 solution of epinephrine for drug delivery. Estimated blood loss was minimal. To stop active bleeding, three hemostatic clips were successfully placed. There was no bleeding at the end of the procedure. Coagulation for hemostasis using heater probe was successful. Estimated blood loss was minimal. No gross lesions were noted in the duodenal bulb. Impression: - LA Grade C erosive esophagitis. Treated with a heater probe. - Oozing gastric ulcers with a visible vessel. Injected. Clips were placed. Treated with a heater probe. - No gross lesions in the duodenal bulb. - No specimens collected. Recommendation: - Return patient to ICU for ongoing care. - Clear liquid diet today. - Administer an IV bolus of 50 micrograms of octreotide followed by an infusion of 50 micrograms per hour today. - Give Protonix (pantoprazole): initiate therapy with 80 mg IV bolus, then 8 mg/hr IV by continuous infusion. - Continue present medications. - No aspirin, ibuprofen, naproxen, or other non-steroidal anti-inflammatory drugs for 4 weeks. Procedure Code(s): --- Professional --- 87211, Esophagogastroduodenoscopy, flexible, transoral; with control of bleeding, any method 05665, 59, Esophagogastroduodenoscopy, flexible, transoral; with directed submucosal injection(s), any substance CPT copyright 2017 [employer]. All rights reserved. The codes documented in this report are preliminary and upon medical biller coder review may be revised to meet current compliance requirements. Gino Briscoe DO 11/10/2022 5:03:25 PM This report has been signed electronically. Number of Addenda: 0 Note Initiated On: 11/10/2022 4:23 PM
[2022-11-10] MEDS: Menthol/Lanolin/Calamine/Znox 113 GM Tube 1 APPLIC TOPICAL (21:02)
[2022-11-11] VITALS (14 sets, daily range): BP systolic 102–120; BP diastolic 56–86; PULSE 90–102; RESP 14–27; TEMP 36.4–36.8; O2SAT 96–100; BMI 28.9
[2022-11-11] MEDS: Lactated Ringers 1,000 ML 125 ML IV (04:51)
[2022-11-11 06:56] LABS: Absolute Lymphocyte Count 2.14 X10^3/uL (0.83-4.51); Basophil# 0.12 X10^3/uL; Basophil% 0.9 % (0-1); Eosinophil# 0.37 X10^3/uL; Eosinophils% 2.7 % (0-5); Hematocrit 30.7 % (40-54); Hemoglobin 9.9 g/dL (13.0-16.5); Lymphocyte # 2.14 X10^3/ul (0.83-4.51); Lymphocyte % 15.6 % (19-41); Mean Corp Hgb Conc 32.2 g/dL (32-36); Mean Corpuscular Hgb 33.3 pg (27.0-32.0); Mean Corpuscular Volume 103.4 fL (80-94); Mean Platelet Vol. 9.5 fl (6.2-12.0); Monocyte# 1.04 X10^3/uL; Monocyte% 7.6 % (0-10); NRBC Flagged by Analyzer 0 % (0-5); Neutrophil # 10.03 X10^3/uL (2.7-7.7); Neutrophil % 72.8 % (47-70); Platelet Count 494 K/mm3 (150-450); RBC Distribution Width CV 13.3 % (11.6-14.6); RBC Distribution Width SD 50.5 fl (35.1-43.9); Red Blood Count 2.97 M/mm3 (4.6-6.2); White Blood Count 13.8 K/mm3 (4.4-11.0)
[2022-11-11 07:43] LABS: Magnesium 0.9 mg/dL (1.6-2.6); Phosphorus 3.8 mg/dL (2.5-4.9)
[2022-11-11 08:15] LABS: Anion Gap 15 (5-15); BUN 64 mg/dL (7-18); BUN/Creat Ratio 7.6 RATIO (10-20); Calcium,Total 7.1 mg/dL (8.5-10.1); Chloride 113 mmol/L (98-107); Creatinine, Serum 8.45 mg/dL (0.70-1.30); EST Glomerular Filtration Rate 7 mL/min (>60); Est Glom Filt Rate - Afr Amer 9 mL/min (>60); Estimated Creatinine Clearance 10.11 ml/min; Glucose 129 mg/dL (74-106); Potassium 3.8 mmol/L (3.5-5.1); Sodium Level 140 mmol/L (136-145)
--- NOTE | 2022-11-11 08:38 | PN.CC_ITS ---
Assessment & Plan Assessment/Plan (1) Sepsis: PLAN: Plan RECOMMENDATIONS: 1. Continue supplemental IV fluids per nephrology recommendations. 2. Aggressive electrolyte repletion. 3. Continue empiric antimicrobials. 4. CIWA protocol with thiamine and folate. 5. Seizure precautions with as needed Ativan. 6. Octreotide and PPI infusions per GI recommendations. 7. Encourage incentive spirometer use and mobilize patient as tolerated. 8. The patient is medically stable for transfer out of the intensive care unit. IMPRESSIONS: 1. Sepsis The patient presented to the hospital with sepsis due to probable GI source of infection with acute sepsis related organ dysfunction as evidenced by encephalopathy, acute kidney injury and lactic acidemia. The patient did receive supplemental IV fluid hydration and was transiently on vasopressor support. The patient, at the present time, is hemodynamically stable. Plan to continue IV fluids per nephrology recommendations. 2. Erosive esophagitis/bleeding gastric ulcer status post intervention Continue PPI therapy and octreotide per GI recommendations. Continue to monitor H&H daily. Transfuse if hemoglobin drops below 7 g/dL. 3. Hypomagnesemia Aggressive magnesium repletion as ordered. Recheck levels in the morning. 4. Acute kidney injury Improving. Most likely prerenal in etiology in the setting of #1 coupled with intravascular volume depletion. The patient has received supplemental IV fluids, which will be continued as tolerated. Renal ultrasound was unremarkable. Plan to continue to monitor urine output for now. No current indication for renal replacement therapy. Nephrology is following to assist with medical management. 5. Encephalopathy with questionable new onset seizure activity Resolved. Most likely metabolic in etiology. However, I cannot discount the possibility of a postictal state. The patient denied a prior seizure history. Plan to continue seizure precautions along with as needed Ativan. EEG did not demonstrate any epileptiform discharges. 6. History of alcohol dependency/BPH/hypertension/GERD Complicates care, management, recovery and prognosis. Continue CIWA protocol with thiamine and folate repletion. Monitor for signs of alcohol withdrawal. This note was generated with [email or web address] dictation software. It may contain incorrect words, spelling, and punctuation that were not noted in checking the note before signing. Subjective Subjective The patient was seen and examined at the bedside this morning. Events from the last 24 hours have been reviewed. The patient is currently afebrile, hemodynamically stable and maintaining appropriate oxygen saturations on room air. The patient was transiently on Levophed yesterday afternoon due to hypotension, but he has since been weaned from vasopressor support. The patient is documented to be overall net +11.3 L for the hospitalization. The patient underwent successful upper endoscopy yesterday which revealed erosive esophagitis and an oozing gastric ulcer which was injected and clipped. Creatinine has improved to 8.45 this morning. Magnesium remains low at 0.9. Objective Data Objective Data The patient's most recent lab work, culture data and imaging studies have all been personally reviewed. Enteric pathogen panel was negative. Blood cultures have not demonstrated any growth to date. Vital Signs: Vital Signs Temp Pulse Resp BP Pulse Ox O2 Del Method O2 Flow Rate 97.6 F L 95 24 H 102/68 97 Room Air 2 11/11/22 08:00 11/11/22 08:00 11/11/22 08:00 11/11/22 08:00 11/11/22 08:00 11/11/22 08:00 11/09/22 22:00 Oxygen Flow Rate (L/min) 2 Oxygen Delivery Method Room Air Weight: 195 lb 12.328 oz Body Mass Index (BMI) 28.9 Intake & Output: Intake and Output for Last 24 Hours 11/09/22 11/10/22 11/11/22 23:59 23:59 23:59 Intake Total 5682.3 / 5682.3 5379.98 / 5379.98 1562.25 / 1562.25 Output Total 70 / 70 295 / 595 950 / 950 Balance 5612.3 / 5612.3 5084.98 / 4784.98 612.25 / 612.25 Lab / Micro Data Attestation: I reviewed the patient's lab results. Result Diagrams: 11/11/22 05:22 11/11/22 05:22 Labs: Laboratory Results - last 24 hr 11/10/22 09:58: MRSA (PCR) Negative 11/11/22 05:22: WBC 13.8 H, RBC 2.97 L, Hgb 9.9 L, Hct 30.7 L, MCV 103.4 H, MCH 33.3 H, MCHC 32.2, RDW Std Deviation 50.5 H, RDW Coeff of Oleksandr 13.3, Plt Count 494 H, MPV 9.5, Immature Gran % (Auto) 0.400, Neut % (Auto) 72.8 H, Lymph % (Auto) 15.6 L, [place] % (Auto) 7.6, Eos % (Auto) 2.7, Baso % (Auto) 0.9, Absolute Neuts (auto) 10.0 H, Absolute Lymphs (auto) 2.14, Nucleated RBC % 0 11/11/22 05:22: Sodium 140, Potassium 3.8, Chloride 113 H, Carbon Dioxide 12.0 L , Anion Gap 15, BUN 64 H, Creatinine 8.45 H*, Estim Creat Clear Calc 10.11, Est GFR (MDRD) Af Amer 9 L, Est GFR (MDRD) Non-Af 7 L, BUN/Creatinine Ratio 7.6 L, Glucose 129 H, Calcium 7.1 L 11/11/22 05:22: Phosphorus 3.8, Magnesium 0.9 L* Micro: Microbiology 11/09/22 03:00 Urine, Catheterized Urine Culture - Preliminary Culture exhibits no growth. 11/09/22 08:45 Stool Enteric Bacteriology - Final 11/09/22 06:30 Stool Stool Lactoferrin - Final 11/09/22 02:31 Nasal Secretion SARS-CoV-2 & FLU Antigen (Rapid) - Final Radiography Diagnostic Testing: Radiology Impression Renal Ultrasound 11/09/22 07:00 IMPRESSION: Normal ultrasound of the kidneys. A Maciel catheter is seen within an empty urinary bladder. Electronically Signed: Anmol Muhammad MD at 10:49 EDT Reading Location ID and State: [facility] / [place] , Service support , Rhythm Strip Rhythm Strip: Sinus Tach Rate: 114 Ectopy: None Physical Exam Const alert and no apparent distress General Appearance: cooperative HEENT normocephalic and head/scalp atraumatic Eyes PERRL, EOMs intact bilaterally and conjunctivae normal Neck supple General: trachea midline Chest inspection of chest normal Resp normal respiratory effort Auscultation: Negative for rales, rhonchi or wheezes Cardio regular rate, regular rhythm, S1 normal heart sound and S2 normal heart sound GI normal to inspection, nondistended, normoactive bowel sounds Extremity no clubbing, cyanosis or edema Skin no rashes or lesions noted Neuro CN's II-XII intact bilaterally and no focal motor deficits Psych cooperative and affect normal Activity / Motor Behavior: restless Charges/Coding Visit Charges Inpatient E&M: 52929 Subs Hosp L2
[2022-11-11] MEDS: Thiamine Hydrochloride 100 MG Tablet PO (09:12)
[2022-11-11] MEDS: Folic Acid 1 MG Tablet PO (09:12)
[2022-11-11] MEDS: Magnesium Sulfate 4gm/100mL 4 GM/100 ML IV.SOLN. IV (09:13)
--- NOTE | 2022-11-11 10:00 | PN.RENAL_ITS ---
Subjective Subjective Patient is awake, alert, resting in bed. No overnight events. Objective Data Objective Data Vital Signs: Vital Signs Temp Pulse Resp BP Pulse Ox O2 Del Method O2 Flow Rate 97.7 F L 90 15 108/73 98 Room Air 2 11/11/22 09:00 11/11/22 09:00 11/11/22 09:00 11/11/22 09:00 11/11/22 09:00 11/11/22 09:00 11/09/22 22:00 Oxygen Flow Rate (L/min) 2 Oxygen Delivery Method Room Air Weight: 88.8 kg Body Mass Index (BMI) 28.9 Intake & Output: Intake and Output for Last 24 Hours 11/09/22 11/10/22 11/11/22 23:59 23:59 23:59 Intake Total 5682.3 / 5682.3 5379.98 / 5379.98 1562.25 / 1562.25 Output Total 70 / 70 295 / 595 950 / 950 Balance 5612.3 / 5612.3 5084.98 / 4784.98 612.25 / 612.25 Lab / Micro Data Result Diagrams: 11/11/22 05:22 11/11/22 05:22 Labs: Laboratory Results - last 24 hr 11/10/22 09:58: MRSA (PCR) Negative 11/11/22 05:22: WBC 13.8 H, RBC 2.97 L, Hgb 9.9 L, Hct 30.7 L, MCV 103.4 H, MCH 33.3 H, MCHC 32.2, RDW Std Deviation 50.5 H, RDW Coeff of Oleksandr 13.3, Plt Count 494 H, MPV 9.5, Immature Gran % (Auto) 0.400, Neut % (Auto) 72.8 H, Lymph % (Auto) 15.6 L, [place] % (Auto) 7.6, Eos % (Auto) 2.7, Baso % (Auto) 0.9, Absolute Neuts (auto) 10.0 H, Absolute Lymphs (auto) 2.14, Nucleated RBC % 0 11/11/22 05:22: Sodium 140, Potassium 3.8, Chloride 113 H, Carbon Dioxide 12.0 L , Anion Gap 15, BUN 64 H, Creatinine 8.45 H*, Estim Creat Clear Calc 10.11, Est GFR (MDRD) Af Amer 9 L, Est GFR (MDRD) Non-Af 7 L, BUN/Creatinine Ratio 7.6 L, Glucose 129 H, Calcium 7.1 L 11/11/22 05:22: Phosphorus 3.8, Magnesium 0.9 L* Micro: Microbiology 11/09/22 03:00 Urine, Catheterized Urine Culture - Final Culture exhibits no growth. 11/09/22 08:45 Stool Enteric Bacteriology - Final 11/09/22 06:30 Stool Stool Lactoferrin - Final 11/09/22 02:31 Nasal Secretion SARS-CoV-2 & FLU Antigen (Rapid) - Final Rhythm Strip Rhythm Strip: Sinus Tach Rate: 114 Ectopy: None Physical Exam Narrative Alert awake oriented x 3, no obvious distress no JVD s1s2 no murmurs lungs clear anteriorly and posteriorly. Patient on room air abdomen soft no edema bruce + Assessment & Plan Assessment/Plan (1) Acute kidney failure: PLAN: - BLUE secondary to ATN from hypotension, intravascular volume depletion. Baseline creatinine is normal. Renal ultrasound without any hydronephrosis. Urinalysis is not impressive. Today Bicarb is 12.0, potassium 3.8, continue IV fluids, but will stop LR and switch to D5 with 3amps of bicarb. SCr 10.9 on admission and today is 8.45. At this time no acute indication for dialysis today. Urine output is starting to product picker, already 1L output so far today. Chuyita martinez is now on clear liquid diet. - bps acceptable, off IV pressor - replacing mag again today - had EGD which showed oozing gastric ulcer and erosive esophagitis. On PPI and octreotide per GI. (2) Acute encephalopathy: (3) Hypokalemia: (4) Alcohol abuse, daily use: PLAN: Plan
--- NOTE | 2022-11-11 10:14 | CASEMGMT ---
Social Work SW spoke w/pt in regard to alcohol use. Pt states does not drink every day, sometimes he drinks a 6 pack. Pt states used to drink a lot more, after his divorce, but this was 20 years ago. Pt declined any resources regarding his alcohol consumption, as he does not see it as an issue. SW also asked pt about mental health, pt denies any mental health struggles at present, though did state being here in the hospital has been difficult. Pt declined any resources for mental health counseling as well. SW remains available should any social service needs arise. SANDIP Subramanian
[2022-11-11] MEDS: Menthol/Lanolin/Calamine/Znox 113 GM Tube 1 APPLIC TOPICAL ×2 (10:36→21:58)
--- NOTE | 2022-11-11 14:56 | PN_ITS ---
Subjective Subjective Patient seen and examined. HE looked much better today. He had no active complaints and had an uneventful night. He is feeling much better today, and fever, tachypnea and tachycardia have improved significantly. REview of systems is otherwise negative. Objective Data Objective Data Vital Signs: Vital Signs Temp Pulse Resp BP Pulse Ox O2 Del Method O2 Flow Rate 97.7 F L 92 17 106/68 97 Room Air 2 11/11/22 10:00 11/11/22 10:00 11/11/22 10:00 11/11/22 10:00 11/11/22 10:00 11/11/22 10:00 11/09/22 22:00 Oxygen Flow Rate (L/min) 2 Oxygen Delivery Method Room Air Weight: 195 lb 12.328 oz Body Mass Index (BMI) 28.9 Intake & Output: Intake and Output for Last 24 Hours 11/09/22 11/10/22 11/11/22 23:59 23:59 23:59 Intake Total 5682.3 / 5682.3 5379.98 / 5379.98 2782.79 / 2782.79 Output Total 70 / 70 295 / 595 950 / 950 Balance 5612.3 / 5612.3 5084.98 / 4784.98 1832.79 / 1832.79 Lab / Micro Data Result Diagrams: 11/11/22 05:22 11/11/22 05:22 Labs: Laboratory Results - last 24 hr 11/11/22 05:22: WBC 13.8 H, RBC 2.97 L, Hgb 9.9 L, Hct 30.7 L, MCV 103.4 H, MCH 33.3 H, MCHC 32.2, RDW Std Deviation 50.5 H, RDW Coeff of Oleksandr 13.3, Plt Count 494 H, MPV 9.5, Immature Gran % (Auto) 0.400, Neut % (Auto) 72.8 H, Lymph % (Auto) 15.6 L, [place] % (Auto) 7.6, Eos % (Auto) 2.7, Baso % (Auto) 0.9, Absolute Neuts (auto) 10.0 H, Absolute Lymphs (auto) 2.14, Nucleated RBC % 0 11/11/22 05:22: Sodium 140, Potassium 3.8, Chloride 113 H, Carbon Dioxide 12.0 L , Anion Gap 15, BUN 64 H, Creatinine 8.45 H*, Estim Creat Clear Calc 10.11, Est GFR (MDRD) Af Amer 9 L, Est GFR (MDRD) Non-Af 7 L, BUN/Creatinine Ratio 7.6 L, Glucose 129 H, Calcium 7.1 L 11/11/22 05:22: Phosphorus 3.8, Magnesium 0.9 L* Micro: Microbiology 11/09/22 03:00 Urine, Catheterized Urine Culture - Final Culture exhibits no growth. 11/09/22 08:45 Stool Enteric Bacteriology - Final 11/09/22 06:30 Stool Stool Lactoferrin - Final 11/09/22 02:31 Nasal Secretion SARS-CoV-2 & FLU Antigen (Rapid) - Final Rhythm Strip Rhythm Strip: Sinus Tach Rate: 114 Ectopy: None Physical Exam Const alert, oriented x3 and no apparent distress HEENT normocephalic, head/scalp atraumatic and moist oral mucous membranes Eyes PERRL and EOMs intact bilaterally Neck no lymphadenopathy, supple and no JVD Lymph Lymphatic: no lymphadenopathy noted and no lymphedema noted Resp normal respiratory effort and normal air movement Resp Narrative: mildly diminished breath sounds bibasally. Tachypneic. No wheezes or crackles. Cardio regular rate, regular rhythm, S1 normal heart sound, S2 normal heart sound and no murmurs GI normal to inspection, nondistended, normoactive bowel sounds, soft to palpation, non-tender and non-distended Extremity normal capillary refill, no clubbing, cyanosis or edema and no calf tenderness General Extremity: no tenderness to palpation of joints or extremities Skin General Skin Exam: no breakdown Neuro CN's II-XII intact bilaterally, no focal motor deficits, no sensory deficits noted and deep tendon reflexes 2+ bilaterally Psych Appearance: appropriate Assessment & Plan Assessment/Plan (1) Sepsis: (2) Hypokalemia: (3) Acute alteration in mental status: (4) Acute hypotension: (5) Seizure in response to acute event: PLAN: Plan #Septic shock * now off levophed * septic shock has resolved * critical care and ID on board * on IV zosyn * blood cultures pending * #Seizure: * Thought to be due to alcohol withdrawal versus infection. * CT of the brain showed mucosal thickening of the right maxillary sinuses but did not show any other acute intracranial pathology. * EEG didnt show any evidence of seizure disorder * IV Ativan as needed #Hyponatremia: resolved. Na is now 139. #BLUE: * Creatinine is thought to trended down and is down to 8.45 today. Bicarb is 12. He started making urine. Nephrology on board. Renal ultrasound was unremarkable. * Continue hydration with IV fluids and monitor. * management as per nephrology * #non Anion gap metabolic acidosis: * Likely due to lactic acid and uremia. * Been hydrated with IV fluids. * bicarb is 12 today. Anion gap remains 15. * nephro on board * on oral bicarb. #UGI bleed * on IV PPI * EGD showed erosive esophagitis and oozing gastric ulcers with a visible vessel * keeps complaining of abdominal pain. concern for peptic ulcer disease * was admitted with bloody diarrhea. * CT o the abdomen showed thickening of the stomach. * on IV pantoprazole and octreotide * #Elevated liver enzymes * Liver enzymes only minimally elevated. Will monitor. #History of chronic alcohol use disorder * At risk of withdrawal. On CIWA protocol with Ativan. On thiamine and folic acid as well as multivitamin. #Hypomagnesemia and hypokalemia: will replace aggressively and trend. Hypertension: Hold BP meds on account of hypotension. #Thrombocytosis: Platelets are down to 494 today. Will monitor. #DVT prophylaxis: SCDs. Total time spent on evaluation and management of patient, reviewing chart and specialist notes, discussing plan with patient, his daughter and friend discussion with nursing and ancillary staff as well as documentation: 45 mins Charges/Coding Visit Charges Inpatient E&M: 54176 Subs Hosp L2
--- NOTE | 2022-11-11 16:42 | PN_ITS ---
Subjective Subjective Patient underwent an upper endoscopy yesterday for an upper GI bleed. He was discovered to have multiple ulcers in his stomach that were treated endoscopically. He is not have any abdominal pain. He is tolerating a diet. He denies any nausea. Objective Data Objective Data Vital Signs: Vital Signs Temp Pulse Resp BP Pulse Ox O2 Del Method O2 Flow Rate 97.7 F L 90 19 H 114/82 H 96 Room Air 2 11/11/22 16:00 11/11/22 16:00 11/11/22 16:00 11/11/22 16:00 11/11/22 16:00 11/11/22 16:00 11/09/22 22:00 Oxygen Flow Rate (L/min) 2 Oxygen Delivery Method Room Air Weight: 195 lb 12.328 oz Body Mass Index (BMI) 28.9 Intake & Output: Intake and Output for Last 24 Hours 11/09/22 11/10/22 11/11/22 23:59 23:59 23:59 Intake Total 5682.3 / 5682.3 5379.98 / 5379.98 2782.79 / 2782.79 Output Total 70 / 70 295 / 595 950 / 950 Balance 5612.3 / 5612.3 5084.98 / 4784.98 1832.79 / 1832.79 Lab / Micro Data Result Diagrams: 11/11/22 05:22 11/11/22 05:22 Labs: Laboratory Results - last 24 hr 11/11/22 05:22: WBC 13.8 H, RBC 2.97 L, Hgb 9.9 L, Hct 30.7 L, MCV 103.4 H, MCH 33.3 H, MCHC 32.2, RDW Std Deviation 50.5 H, RDW Coeff of Oleksandr 13.3, Plt Count 494 H, MPV 9.5, Immature Gran % (Auto) 0.400, Neut % (Auto) 72.8 H, Lymph % (Auto) 15.6 L, [place] % (Auto) 7.6, Eos % (Auto) 2.7, Baso % (Auto) 0.9, Absolute Neuts (auto) 10.0 H, Absolute Lymphs (auto) 2.14, Nucleated RBC % 0 11/11/22 05:22: Sodium 140, Potassium 3.8, Chloride 113 H, Carbon Dioxide 12.0 L , Anion Gap 15, BUN 64 H, Creatinine 8.45 H*, Estim Creat Clear Calc 10.11, Est GFR (MDRD) Af Amer 9 L, Est GFR (MDRD) Non-Af 7 L, BUN/Creatinine Ratio 7.6 L, Glucose 129 H, Calcium 7.1 L 11/11/22 05:22: Phosphorus 3.8, Magnesium 0.9 L* Micro: Microbiology 11/09/22 03:00 Urine, Catheterized Urine Culture - Final Culture exhibits no growth. 11/09/22 08:45 Stool Enteric Bacteriology - Final 11/09/22 06:30 Stool Stool Lactoferrin - Final 11/09/22 02:31 Nasal Secretion SARS-CoV-2 & FLU Antigen (Rapid) - Final Rhythm Strip Rhythm Strip: Sinus Tach Rate: 114 Ectopy: None Physical Exam Const alert, oriented x3 and no apparent distress HEENT normocephalic, head/scalp atraumatic and moist oral mucous membranes Eyes PERRL and EOMs intact bilaterally Neck no lymphadenopathy, supple and no JVD Lymph Lymphatic: no lymphadenopathy noted and no lymphedema noted Resp normal respiratory effort and normal air movement Resp Narrative: mildly diminished breath sounds bibasally. Tachypneic. No wheezes or crackles. Cardio regular rate, regular rhythm, S1 normal heart sound, S2 normal heart sound and no murmurs GI normal to inspection, nondistended, normoactive bowel sounds, soft to palpation, non-tender and non-distended Extremity normal capillary refill, no clubbing, cyanosis or edema and no calf tenderness General Extremity: no tenderness to palpation of joints or extremities Skin General Skin Exam: no breakdown Neuro CN's II-XII intact bilaterally, no focal motor deficits, no sensory deficits noted and deep tendon reflexes 2+ bilaterally Psych Appearance: appropriate Assessment & Plan Assessment/Plan (1) Upper GI bleed: PLAN: Upper GI bleed secondary to peptic ulcer disease status posttreatment endoscopically. His hemoglobin seems to be stable. He has been on Protonix drip. This can be switched to IV every 12 hours. He will also need to be on C arafate 1 g p.o. 3 times daily for 4 weeks. He can be transitioned when he leaves the hospital to Protonix 40 mg p.o. twice daily. Continue to monitor H&H. Charges/Coding Visit Charges Inpatient E&M: 09117 Subs Hosp L3
[2022-11-12] MEDS: Acetaminophen 325 MG Tablet 650 MG PO (02:05)
--- NOTE | 2022-11-12 05:40 | NURSING ---
Downtime on 11/12/22 from [id number].
[2022-11-12 06:00] VITALS: BMI 27.5
[2022-11-12 06:08] LABS: Absolute Lymphocyte Count 1.62 X10^3/uL (0.83-4.51); Basophil# 0.09 X10^3/uL; Basophil% 0.8 % (0-1); Eosinophil# 0.38 X10^3/uL; Eosinophils% 3.4 % (0-5); Hematocrit 27.5 % (40-54); Hemoglobin 9.5 g/dL (13.0-16.5); Lymphocyte # 1.62 X10^3/ul (0.83-4.51); Lymphocyte % 14.6 % (19-41); Mean Corp Hgb Conc 34.5 g/dL (32-36); Mean Corpuscular Hgb 33.7 pg (27.0-32.0); Mean Corpuscular Volume 97.5 fL (80-94); Mean Platelet Vol. 9.3 fl (6.2-12.0); Monocyte# 0.94 X10^3/uL; Monocyte% 8.5 % (0-10); NRBC Flagged by Analyzer 0 % (0-5); Neutrophil # 8.04 X10^3/uL (2.7-7.7); Neutrophil % 72.4 % (47-70); Platelet Count 448 K/mm3 (150-450); RBC Distribution Width CV 12.8 % (11.6-14.6); RBC Distribution Width SD 45.9 fl (35.1-43.9); Red Blood Count 2.82 M/mm3 (4.6-6.2)
[2022-11-12 06:28] LABS: White Blood Count 11.1 K/mm3 (4.4-11.0)
[2022-11-12 07:52] VITALS: O2SAT 93
[2022-11-12 08:00] VITALS: BP 121/82; PULSE 80; RESP 16; TEMP 36.6; O2SAT 96
--- NOTE | 2022-11-12 08:01 | PN.CC_ITS ---
Assessment & Plan Assessment/Plan (1) Sepsis: PLAN: Plan RECOMMENDATIONS: 1. Continue supplemental IV fluids per nephrology recommendations. 2. Aggressive electrolyte repletion, as ordered. 3. Continue empiric antimicrobials. 4. CIWA protocol with thiamine and folate. 5. Seizure precautions with as needed Ativan. 6. Octreotide and PPI infusions per GI recommendations. 7. Encourage incentive spirometer use and mobilize patient as tolerated. 8. We will sign off from a pulmonary/critical care perspective. Please call with any additional questions. IMPRESSIONS: 1. Sepsis The patient presented to the hospital with sepsis due to probable GI source of infection with acute sepsis related organ dysfunction as evidenced by encephalopathy, acute kidney injury and lactic acidemia. The patient did receive supplemental IV fluid hydration and was transiently on vasopressor support. The patient, at the present time, is hemodynamically stable. Plan to continue IV fluids per nephrology recommendations. 2. Erosive esophagitis/bleeding gastric ulcer status post intervention Continue PPI therapy and octreotide per GI recommendations. Continue to monitor H&H daily. Transfuse if hemoglobin drops below 7 g/dL. 3. Acute kidney injury Improving. Most likely prerenal in etiology in the setting of #1 coupled with intravascular volume depletion. The patient has received supplemental IV fluids, which will be continued as tolerated. Renal ultrasound was unremarkabl e. Plan to continue to monitor urine output for now. No current indication for renal replacement therapy. Nephrology is following to assist with medical management. 4. History of alcohol dependency/BPH/hypertension/GERD Complicates care, management, recovery and prognosis. Continue CIWA protocol with thiamine and folate repletion. Monitor for signs of alcohol withdrawal. This note was generated with [employer] dictation software. It may contain incorrect words, spelling, and punctuation that were not noted in checking the note before signing. Subjective Subjective The patient was seen and examined at the bedside this morning. Events from the last 24 hours have been reviewed. The patient is currently afebrile, hemodynamically stable and maintaining appropriate oxygen saturations on room air. Hemoglobin remains stable at 9.5 g/dL. Potassium is low at 3.1 with a magnesium 1.6. Creatinine was noted to be 4.0. Objective Data Objective Data The patient's most recent lab work, culture data and imaging studies have all been personally reviewed. Enteric pathogen panel was negative. Blood cultures have not demonstrated any growth to date. Vital Signs: Vital Signs Temp Pulse Resp BP Pulse Ox O2 Del Method O2 Flow Rate 98 F 94 22 H 114/86 H 97 Room Air 2 11/11/22 22:00 11/11/22 22:00 11/11/22 22:00 11/11/22 22:00 11/11/22 22:00 11/11/22 22:00 11/09/22 22:00 Oxygen Flow Rate (L/min) 2 Oxygen Delivery Method Room Air Weight: 185 lb 13.595 oz Body Mass Index (BMI) 27.5 Intake & Output: Intake and Output for Last 24 Hours 11/10/22 11/11/22 11/12/22 23:59 23:59 23:59 Intake Total 5379.98 / 5379.98 5246.79 / 5246.79 170 / 170 Output Total 295 / 595 2775 / 3675 900 / 900 Balance 5084.98 / 4784.98 2471.79 / 1571.79 -730 / -730 Lab / Micro Data Attestation: I reviewed the patient's lab results. Result Diagrams: 11/12/22 03:15 11/12/22 03:15 Labs: Laboratory Results - last 24 hr 11/11/22 05:22: Sodium 140, Potassium 3.8, Chloride 113 H, Carbon Dioxide 12.0 L , Anion Gap 15, BUN 64 H, Creatinine 8.45 H*, Estim Creat Clear Calc 10.11, Est GFR (MDRD) Af Amer 9 L, Est GFR (MDRD) Non-Af 7 L, BUN/Creatinine Ratio 7.6 L, Glucose 129 H, Calcium 7.1 L 11/12/22 03:15: WBC 11.1 H, RBC 2.82 L, Hgb 9.5 L, Hct 27.5 L, MCV 97.5 H D, MCH 33.7 H, MCHC 34.5 D, RDW Std Deviation 45.9 H, RDW Coeff of Oleksandr 12.8, Plt Count 448, MPV 9.3, Immature Gran % (Auto) 0.300, Neut % (Auto) 72.4 H, Lymph % (Auto) 14.6 L, [place] % (Auto) 8.5, Eos % (Auto) 3.4, Baso % (Auto) 0.8, Absolute Neuts (auto) 8.0 H, Absolute Lymphs (auto) 1.62, Nucleated RBC % 0 Micro: Microbiology 11/09/22 03:00 Urine, Catheterized Urine Culture - Final Culture exhibits no growth. 11/09/22 08:45 Stool Enteric Bacteriology - Final 11/09/22 06:30 Stool Stool Lactoferrin - Final 11/09/22 02:31 Nasal Secretion SARS-CoV-2 & FLU Antigen (Rapid) - Final Radiography Diagnostic Testing: Radiology Impression Renal Ultrasound 11/09/22 07:00 IMPRESSION: Normal ultrasound of the kidneys. A Maciel catheter is seen within an empty urinary bladder. Electronically Signed: Anmol Muhammad MD at 10:49 EDT , Rhythm Strip Rhythm Strip: Sinus Tach Rate: 114 Ectopy: None Physical Exam Const alert and no apparent distress General Appearance: cooperative HEENT normocephalic and head/scalp atraumatic Eyes PERRL, EOMs intact bilaterally and conjunctivae normal Neck supple General: trachea midline Chest inspection of chest normal Resp normal respiratory effort Auscultation: Negative for rales, rhonchi or wheezes Cardio regular rate, regular rhythm, S1 normal heart sound and S2 normal heart sound GI normal to inspection, nondistended, normoactive bowel sounds Extremity no clubbing, cyanosis or edema Skin no rashes or lesions noted Neuro CN's II-XII intact bilaterally and no focal motor deficits Psych cooperative and affect normal Activity / Motor Behavior: restless Charges/Coding Visit Charges Inpatient E&M: 23196 Subs Hosp L2
[2022-11-12] MEDS: Folic Acid 1 MG Tablet PO (08:15)
[2022-11-12] MEDS: Thiamine Hydrochloride 100 MG Tablet PO (08:15)
[2022-11-12 08:17] LABS: Albumin, Serum 2.5 g/dL (3.2-5.0); BUN 48 mg/dL (7-18); Calcium,Total 7.5 mg/dL (8.5-10.1); Chloride 111 mmol/L (98-107); EST Glomerular Filtration Rate 17 mL/min (>60); Est Glom Filt Rate - Afr Amer 21 mL/min (>60); Estimated Creatinine Clearance 21.36 ml/min; Glucose 122 mg/dL (74-106); Magnesium 1.6 mg/dL (1.6-2.6); Phosphorus 2.6 mg/dL (2.5-4.9); Potassium 3.1 mmol/L (3.5-5.1); Sodium Level 140 mmol/L (136-145)
[2022-11-12] MEDS: Potassium Chloride Oral Tablet 20 MEQ 60 MEQ PO (09:49)
[2022-11-12] MEDS: Menthol/Lanolin/Calamine/Znox 113 GM Tube 1 APPLIC TOPICAL (09:55)
--- NOTE | 2022-11-12 10:25 | PN.RENAL_ITS ---
Subjective Subjective Sitting in chair. More alert and oriented today. Denies any complaints. No overnight events. Objective Data Objective Data Vital Signs: Vital Signs Temp Pulse Resp BP Pulse Ox O2 Del Method O2 Flow Rate 98 F 94 22 H 114/86 H 93 Room Air 2 11/11/22 22:00 11/11/22 22:00 11/11/22 22:00 11/11/22 22:00 11/12/22 07:52 11/12/22 07:52 11/09/22 22:00 Oxygen Flow Rate (L/min) 2 Oxygen Delivery Method Room Air Weight: 84.3 kg Body Mass Index (BMI) 27.5 Intake & Output: Intake and Output for Last 24 Hours 11/10/22 11/11/22 11/12/22 23:59 23:59 23:59 Intake Total 5379.98 / 5379.98 5246.79 / 5246.79 1671 / 1671 Output Total 295 / 595 2775 / 3675 900 / 900 Balance 5084.98 / 4784.98 2471.79 / 1571.79 771 / 771 Lab / Micro Data Result Diagrams: 11/12/22 03:15 11/12/22 03:15 Labs: Laboratory Results - last 24 hr 11/12/22 03:15: Sodium 140, Potassium 3.1 L, Chloride 111 H, Carbon Dioxide 19.0 L, BUN 48 H, Creatinine 4.00 H, Estim Creat Clear Calc 21.36, Est GFR (MDRD) Af Amer 21 L, Est GFR (MDRD) Non-Af 17 L, BUN/Creatinine Ratio 12.0, Glucose 122 H, Calcium 7.5 L, Phosphorus 2.6, Magnesium 1.6, Albumin 2.5 L 11/12/22 03:15: WBC 11.1 H, RBC 2.82 L, Hgb 9.5 L, Hct 27.5 L, MCV 97.5 H D, MCH 33.7 H, MCHC 34.5 D, RDW Std Deviation 45.9 H, RDW Coeff of Oleksandr 12.8, Plt Count 448, MPV 9.3, Immature Gran % (Auto) 0.300, Neut % (Auto) 72.4 H, Lymph % (Auto) 14.6 L, [place] % (Auto) 8.5, Eos % (Auto) 3.4, Baso % (Auto) 0.8, Absolute Neuts (auto) 8.0 H, Absolute Lymphs (auto) 1.62, Nucleated RBC % 0 Micro: Microbiology 11/09/22 03:00 Urine, Catheterized Urine Culture - Final Culture exhibits no growth. 11/09/22 08:45 Stool Enteric Bacteriology - Final 11/09/22 06:30 Stool Stool Lactoferrin - Final 11/09/22 02:31 Nasal Secretion SARS-CoV-2 & FLU Antigen (Rapid) - Final Rhythm Strip Rhythm Strip: Sinus Tach Rate: 114 Ectopy: None Physical Exam Narrative Alert awake oriented x 3, no obvious distress no JVD s1s2 no murmurs lungs clear anteriorly and posteriorly. Patient on room air abdomen soft no edema Assessment & Plan Assessment/Plan (1) Acute kidney failure: PLAN: - BLUE secondary to ATN from hypotension, intravascular volume depletion with concurrent lisinopril/hydrochlorothiazide and NSAID use. Baseline creatinine is normal. Renal ultrasound without any hydronephrosis. Urinalysis is not impressive. SCr 10.9 on admission and today is 4.00. Bicarb improved on bicarb drip. Continue IV fluids for another day. Potassium 3.1, replacement has been ordered and given. Urine output is picking up. At this time no acute indication for dialysis today. Overall renal function is improving. Maciel is out. - bps acceptable, off IV pressor - Getting magnesium replacement again today. Phosphorus is 2.6 - had EGD which showed oozing gastric ulcer and erosive esophagitis. On PPI and octreotide per GI. (2) Acute encephalopathy: (3) Hypokalemia: (4) Alcohol abuse, daily use: PLAN: Plan
--- NOTE | 2022-11-12 12:14 | PN_ITS ---
Subjective Subjective Patient seen and examined. He had no active complaints. He feels much better today. He had an uneventful night and review of systems is otherwise negative. He has remained hemodynamically stable. He is now on room air. Objective Data Objective Data Vital Signs: Vital Signs Temp Pulse Resp BP Pulse Ox O2 Del Method O2 Flow Rate 98 F 94 22 H 114/86 H 93 Room Air 2 11/11/22 22:00 11/11/22 22:00 11/11/22 22:00 11/11/22 22:00 11/12/22 07:52 11/12/22 07:52 11/09/22 22:00 Oxygen Flow Rate (L/min) 2 Oxygen Delivery Method Room Air Weight: 185 lb 13.595 oz Body Mass Index (BMI) 27.5 Intake & Output: Intake and Output for Last 24 Hours 11/10/22 11/11/22 11/12/22 23:59 23:59 23:59 Intake Total 5379.98 / 5379.98 5246.79 / 5246.79 1723.50 / 1723.50 Output Total 295 / 595 2775 / 3675 900 / 900 Balance 5084.98 / 4784.98 2471.79 / 1571.79 823.50 / 823.50 Lab / Micro Data Result Diagrams: 11/12/22 03:15 11/12/22 03:15 Labs: Laboratory Results - last 24 hr 11/12/22 03:15: Sodium 140, Potassium 3.1 L, Chloride 111 H, Carbon Dioxide 19.0 L, BUN 48 H, Creatinine 4.00 H, Estim Creat Clear Calc 21.36, Est GFR (MDRD) Af Amer 21 L, Est GFR (MDRD) Non-Af 17 L, BUN/Creatinine Ratio 12.0, Glucose 122 H, Calcium 7.5 L, Phosphorus 2.6, Magnesium 1.6, Albumin 2.5 L 11/12/22 03:15: WBC 11.1 H, RBC 2.82 L, Hgb 9.5 L, Hct 27.5 L, MCV 97.5 H D, MCH 33.7 H, MCHC 34.5 D, RDW Std Deviation 45.9 H, RDW Coeff of Oleksandr 12.8, Plt Count 448, MPV 9.3, Immature Gran % (Auto) 0.300, Neut % (Auto) 72.4 H, Lymph % (Auto) 14.6 L, [place] % (Auto) 8.5, Eos % (Auto) 3.4, Baso % (Auto) 0.8, Absolute Neuts (auto) 8.0 H, Absolute Lymphs (auto) 1.62, Nucleated RBC % 0 Micro: Microbiology 11/09/22 03:00 Urine, Catheterized Urine Culture - Final Culture exhibits no growth. 11/09/22 08:45 Stool Enteric Bacteriology - Final 11/09/22 06:30 Stool Stool Lactoferrin - Final 11/09/22 02:31 Nasal Secretion SARS-CoV-2 & FLU Antigen (Rapid) - Final Rhythm Strip Rhythm Strip: Sinus Tach Rate: 114 Ectopy: None Physical Exam Const alert, oriented x3 and no apparent distress HEENT normocephalic, head/scalp atraumatic and moist oral mucous membranes Eyes PERRL and EOMs intact bilaterally Neck no lymphadenopathy, supple and no JVD Lymph Lymphatic: no lymphadenopathy noted and no lymphedema noted Resp normal respiratory effort and normal air movement Resp Narrative: mildly diminished breath sounds bibasally. No wheezes or crackles. On room air. Cardio regular rate, regular rhythm, S1 normal heart sound, S2 normal heart sound and no murmurs Cardio Narrative: tachypneic GI normal to inspection, nondistended, normoactive bowel sounds, soft to palpation, non-tender and non-distended Extremity normal capillary refill, no clubbing, cyanosis or edema and no calf tenderness General Extremity: no tenderness to palpation of joints or extremities Skin General Skin Exam: no breakdown Neuro CN's II-XII intact bilaterally, no focal motor deficits, no sensory deficits noted and deep tendon reflexes 2+ bilaterally Psych Psych Narrative: restless Appearance: appropriate Assessment & Plan Assessment/Plan (1) Sepsis: (2) Hypokalemia: (3) Acute alteration in mental status: (4) Acute hypotension: (5) Seizure in response to acute event: PLAN: Plan #Septic shock * now off levophed * septic shock has resolved * critical care and ID on board * on IV zosyn * blood cultures pending; urine cultures show no growth * wbc trended down to 11.1 * #Seizure: * Thought to be due to alcohol withdrawal versus infection. * CT of the brain showed mucosal thickening of the right maxillary sinuses but did not show any other acute intracranial pathology. * EEG didnt show any evidence of seizure disorder * IV Ativan as needed #Hyponatremia: resolved. #BLUE: * Creatinine is trending down to 4 from 8.545 yesterday * nephrology on board. * renal USG was unremarkable * management as per nephrology * * #non Anion gap metabolic acidosis: * Likely due to lactic acid and uremia. * bicarg is up 50 19 today. * nephro on board * on oral bicarb. #UGI bleed * on IV PPI * EGD showed erosive esophagitis and oozing gastric ulcers with a visible vessel * keeps complaining of abdominal pain. concern for peptic ulcer disease * was admitted with bloody diarrhea. * CT o the abdomen showed thickening of the stomach. * on IV pantoprazole and octreotide * #Elevated liver enzymes * Liver enzymes only minimally elevated. Will monitor. #History of chronic alcohol use disorder * At risk of withdrawal. On CIWA protocol with Ativan. On thiamine and folic acid as well as multivitamin. #Hypomagnesemia and hypokalemia: will replace aggressively and trend. Hypertension: Hold BP meds on account of hypotension. #Thrombocytosis: resolved. platelets are down to 448. #DVT prophylaxis: SCDs. Total time spent on evaluation and management of patient, reviewing chart and specialist notes, discussing plan with patient, his daughter and friend discussion with nursing and ancillary staff as well as documentation: 42 mins Disposition: transfer to PCU today Charges/Coding Visit Charges Inpatient E&M: 13303 Subs Hosp L2
[2022-11-12 14:00] VITALS: BP 115/76; PULSE 82; RESP 18; TEMP 36.8; O2SAT 97
[2022-11-12] MEDS: Pantoprazole Sodium 40 MG Tablet PO (21:56)
[2022-11-12 22:00] VITALS: BP 124/83; PULSE 82; RESP 17; TEMP 36.8; O2SAT 98
[2022-11-13 04:00] VITALS: BP 124/81; PULSE 75; RESP 15; TEMP 36.8; O2SAT 98
[2022-11-13 05:38] LABS: Absolute Lymphocyte Count 2.18 X10^3/uL (0.83-4.51); Absolute Neutrophil Count 7.6 X10^3/uL (2.0-7.7); Basophil# 0.07 X10^3/uL; Basophil% 0.6 % (0-1); Eosinophil# 0.35 X10^3/uL; Eosinophils% 3.2 % (0-5); Hematocrit 31.8 % (40-54); Hemoglobin 10.2 g/dL (13.0-16.5); Lymphocyte # 2.18 X10^3/ul (0.83-4.51); Lymphocyte % 19.8 % (19-41); Mean Corp Hgb Conc 32.1 g/dL (32-36); Mean Corpuscular Hgb 32.7 pg (27.0-32.0); Mean Corpuscular Volume 101.9 fL (80-94); Mean Platelet Vol. 9.1 fl (6.2-12.0); Monocyte# 0.78 X10^3/uL; Monocyte% 7.1 % (0-10); NRBC Flagged by Analyzer 0 % (0-5); Neutrophil # 7.62 X10^3/uL (2.7-7.7); Neutrophil % 69.1 % (47-70); Platelet Count 454 K/mm3 (150-450); RBC Distribution Width CV 13.1 % (11.6-14.6); RBC Distribution Width SD 48.5 fl (35.1-43.9); Red Blood Count 3.12 M/mm3 (4.6-6.2)
[2022-11-13 05:51] LABS: Anion Gap 9 (5-15); BUN 31 mg/dL (7-18); Calcium,Total 7.6 mg/dL (8.5-10.1); Chloride 112 mmol/L (98-107); Creatinine, Serum 1.63 mg/dL (0.70-1.30); EST Glomerular Filtration Rate 47 mL/min (>60); Est Glom Filt Rate - Afr Amer 57 mL/min (>60); Estimated Creatinine Clearance 52.41 ml/min; Glucose 92 mg/dL (74-106); Potassium 3.5 mmol/L (3.5-5.1); Sodium Level 143 mmol/L (136-145)
[2022-11-13 06:59] VITALS: O2SAT 98
--- NOTE | 2022-11-13 07:40 | PN_ITS ---
Subjective Subjective Patient states that he has been having diarrhea and he has a history of Crohn's disease. He says he has not been on medications for Crohn's disease. He does not know if he has a large or small bowel. He does not know if he has had any surgeries for Crohn's disease. He thinks that he is na?ve to anti-TNF medicines but has been treated with prednisone in the past. Objective Data Objective Data Vital Signs: Vital Signs Temp Pulse Resp BP Pulse Ox O2 Del Method O2 Flow Rate 98.2 F 75 15 124/81 H 98 Room Air 2 11/13/22 04:00 11/13/22 04:00 11/13/22 04:00 11/13/22 04:00 11/13/22 06:59 11/13/22 06:59 11/09/22 22:00 Oxygen Flow Rate (L/min) 2 Oxygen Delivery Method Room Air Weight: 185 lb 13.595 oz Body Mass Index (BMI) 27.5 Intake & Output: Intake and Output for Last 24 Hours 11/11/22 11/12/22 11/13/22 23:59 23:59 23:59 Intake Total 5246.79 / 5246.79 2974.17 / 2974.17 450 / 450 Output Total 2775 / 3675 1500 / 1500 950 / 950 Balance 2471.79 / 1571.79 1474.17 / 1474.17 -500 / -500 Lab / Micro Data Result Diagrams: 11/13/22 05:30 11/13/22 05:30 Labs: Laboratory Results - last 24 hr 11/12/22 03:15: Sodium 140, Potassium 3.1 L, Chloride 111 H, Carbon Dioxide 19.0 L, BUN 48 H, Creatinine 4.00 H, Estim Creat Clear Calc 21.36, Est GFR (MDRD) Af Amer 21 L, Est GFR (MDRD) Non-Af 17 L, BUN/Creatinine Ratio 12.0, Glucose 122 H, Calcium 7.5 L, Phosphorus 2.6, Magnesium 1.6, Albumin 2.5 L 11/13/22 05:30: WBC 11.0, RBC 3.12 L, Hgb 10.2 L, Hct 31.8 L, MCV 101.9 H, MCH 32.7 H, MCHC 32.1 D, RDW Std Deviation 48.5 H, RDW Coeff of Oleksandr 13.1, Plt Count 454 H, MPV 9.1, Immature Gran % (Auto) 0.200, Neut % (Auto) 69.1, Lymph % (Auto) 19.8, [place] % (Auto) 7.1, Eos % (Auto) 3.2, Baso % (Auto) 0.6, Absolute Neuts (auto) 7.6, Absolute Lymphs (auto) 2.18, Nucleated RBC % 0 11/13/22 05:30: Sodium 143, Potassium 3.5, Chloride 112 H, Carbon Dioxide 22.0, Anion Gap 9, BUN 31 H, Creatinine 1.63 H, Estim Creat Clear Calc 52.41, Est GFR (MDRD) Af Amer 57 L, Est GFR (MDRD) Non-Af 47 L, BUN/Creatinine Ratio 19.0, Glu cose 92, Calcium 7.6 L Micro: Microbiology 11/09/22 03:00 Urine, Catheterized Urine Culture - Final Culture exhibits no growth. 11/09/22 08:45 Stool Enteric Bacteriology - Final 11/09/22 06:30 Stool Stool Lactoferrin - Final 11/09/22 02:31 Nasal Secretion SARS-CoV-2 & FLU Antigen (Rapid) - Final Rhythm Strip Rhythm Strip: Sinus Tach Rate: 114 Ectopy: None Physical Exam Const alert, oriented x3 and no apparent distress HEENT normocephalic, head/scalp atraumatic and moist oral mucous membranes Eyes PERRL and EOMs intact bilaterally Neck no lymphadenopathy, supple and no JVD Lymph Lymphatic: no lymphadenopathy noted and no lymphedema noted Resp normal respiratory effort and normal air movement Resp Narrative: mildly diminished breath sounds bibasally. No wheezes or crackles. On room air. Cardio regular rate, regular rhythm, S1 normal heart sound, S2 normal heart sound and no murmurs Cardio Narrative: tachypneic GI normal to inspection, nondistended, normoactive bowel sounds, soft to palpation, non-tender and non-distended Extremity normal capillary refill, no clubbing, cyanosis or edema and no calf tenderness General Extremity: no tenderness to palpation of joints or extremities Skin General Skin Exam: no breakdown Neuro CN's II-XII intact bilaterally, no focal motor deficits, no sensory deficits noted and deep tendon reflexes 2+ bilaterally Psych Psych Narrative: restless Appearance: appropriate Assessment & Plan Assessment/Plan (1) Upper GI bleed: PLAN: Upper GI bleed secondary to peptic ulcer disease status posttreatment endoscopically. His hemoglobin seems to be stable. He has been on Protonix drip. This can be switched to IV every 12 hours. He will also need to be on Carafate 1 g p.o. 3 times daily for 4 weeks. He can be transitioned when he leaves the hospital to Protonix 40 mg p.o. twice daily. Continue to monitor H&H. (2) Crohn's disease: PLAN: I will order [facility] IBD SGI antibody analysis for inflammatory bowel disease specifically ulcerative colitis and Crohn's disease. I will also check an ESR, CRP, QuantiFERON gold, acute hepatitis panel, stool for fecal calprotectin, enteric pathogens, stool for lactoferrin, stool for pancreatic elastase, antibodies for celiac disease as all of these can present like inflammatory bowel disease and if he needs treatment for Crohn's disease we would like to make sure he has no infectious diarrhea at this time. (3) Elevated liver enzymes: PLAN: Elevated liver enzymes likely secondary to alcoholic hepatitis with low Madrey score. However we will check for autoimmune disease and chronic viral disease affecting possibly affecting the liver Charges/Coding Visit Charges Inpatient E&M: 70426 Subs Hosp L3
[2022-11-13] MEDS: Thiamine Hydrochloride 100 MG Tablet PO (07:59)
[2022-11-13] MEDS: Folic Acid 1 MG Tablet PO (07:59)
[2022-11-13] MEDS: Pantoprazole Sodium 40 MG Tablet PO (07:59)
[2022-11-13] MEDS: Menthol/Lanolin/Calamine/Znox 113 GM Tube 1 APPLIC TOPICAL (08:00)
[2022-11-13 08:05] VITALS: BP 125/79; PULSE 86; RESP 19; TEMP 36.3; O2SAT 97
[2022-11-13 09:43] LABS: Erythrocyte Sedimentation Rate 33 mm/hr (0-20)
--- NOTE | 2022-11-13 09:57 | PCM.PROGNOTE ---
Objective Data Objective Data Vital Signs: Vital Signs Temp Pulse Resp BP Pulse Ox O2 Del Method O2 Flow Rate 97.3 F L 86 19 H 125/79 H 97 Room Air 2 11/13/22 08:05 11/13/22 08:05 11/13/22 08:05 11/13/22 08:05 11/13/22 08:05 11/13/22 08:05 11/09/22 22:00 Oxygen Flow Rate (L/min) 2 Oxygen Delivery Method Room Air Weight: 185 lb 13.595 oz Body Mass Index (BMI) 27.5 Intake & Output: Intake and Output for Last 24 Hours 11/11/22 11/12/22 11/13/22 23:59 23:59 23:59 Intake Total 5246.79 / 5246.79 2974.17 / 2974.17 450 / 450 Output Total 2775 / 3675 1500 / 1500 950 / 950 Balance 2471.79 / 1571.79 1474.17 / 1474.17 -500 / -500 Lab / Micro Data Result Diagrams: 11/13/22 05:30 11/13/22 05:30 Labs: Laboratory Results - last 24 hr 11/13/22 05:30: WBC 11.0, RBC 3.12 L, Hgb 10.2 L, Hct 31.8 L, MCV 101.9 H, MCH 32.7 H, MCHC 32.1 D, RDW Std Deviation 48.5 H, RDW Coeff of Oleksandr 13.1, Plt Count 454 H, MPV 9.1, Immature Gran % (Auto) 0.200, Neut % (Auto) 69.1, Lymph % (Auto) 19.8, [place] % (Auto) 7.1, Eos % (Auto) 3.2, Baso % (Auto) 0.6, Absolute Neuts (auto) 7.6, Absolute Lymphs (auto) 2.18, Nucleated RBC % 0 11/13/22 05:30: Sodium 143, Potassium 3.5, Chloride 112 H, Carbon Dioxide 22.0, Anion Gap 9, BUN 31 H, Creatinine 1.63 H, Estim Creat Clear Calc 52.41, Est GFR (MDRD) Af Amer 57 L, Est GFR (MDRD) Non-Af 47 L, BUN/Creatinine Ratio 19.0, Glucose 92, Calcium 7.6 L 11/13/22 05:30: ESR 33 H 11/13/22 05:30: C-React Prot Ext Range 17.90 H 11/13/22 08:55: Stool Neutral Fats Cancelled, Stool Total Fats Cancelled, Stool Calprotectin Cancelled Micro: Microbiology 11/13/22 08:55 Stool Stool Lactoferrin - Final 11/09/22 03:00 Urine, Catheterized Urine Culture - Final Culture exhibits no growth. 11/09/22 08:45 Stool Enteric Bacteriology - Final 11/09/22 06:30 Stool Stool Lactoferrin - Final 11/09/22 02:31 Nasal Secretion SARS-CoV-2 & FLU Antigen (Rapid) - Final Rhythm Strip Rhythm Strip: Sinus Tach Rate: 114 Ectopy: None
--- NOTE | 2022-11-13 10:00 | PN_ITS ---
Subjective Subjective Patient is doing well states that he wants to go home. He is tolerating a diet. His kidney function has improved drastically. He is urinating. He still having some loose stools but that is also improved. Objective Data Objective Data Vital Signs: Vital Signs Temp Pulse Resp BP Pulse Ox O2 Del Method O2 Flow Rate 97.3 F L 86 19 H 125/79 H 97 Room Air 2 11/13/22 08:05 11/13/22 08:05 11/13/22 08:05 11/13/22 08:05 11/13/22 08:05 11/13/22 08:05 11/09/22 22:00 Oxygen Flow Rate (L/min) 2 Oxygen Delivery Method Room Air Weight: 185 lb 13.595 oz Body Mass Index (BMI) 27.5 Intake & Output: Intake and Output for Last 24 Hours 11/11/22 11/12/22 11/13/22 23:59 23:59 23:59 Intake Total 5246.79 / 5246.79 2974.17 / 2974.17 450 / 450 Output Total 2775 / 3675 1500 / 1500 1550 / 1550 Balance 2471.79 / 1571.79 1474.17 / 1474.17 -1100 / -1100 Lab / Micro Data Result Diagrams: 11/13/22 05:30 11/13/22 05:30 Labs: Laboratory Results - last 24 hr 11/13/22 05:30: WBC 11.0, RBC 3.12 L, Hgb 10.2 L, Hct 31.8 L, MCV 101.9 H, MCH 32.7 H, MCHC 32.1 D, RDW Std Deviation 48.5 H, RDW Coeff of Oleksandr 13.1, Plt Count 454 H, MPV 9.1, Immature Gran % (Auto) 0.200, Neut % (Auto) 69.1, Lymph % (Auto) 19.8, [place] % (Auto) 7.1, Eos % (Auto) 3.2, Baso % (Auto) 0.6, Absolute Neuts (auto) 7.6, Absolute Lymphs (auto) 2.18, Nucleated RBC % 0 11/13/22 05:30: Sodium 143, Potassium 3.5, Chloride 112 H, Carbon Dioxide 22.0, Anion Gap 9, BUN 31 H, Creatinine 1.63 H, Estim Creat Clear Calc 52.41, Est GFR (MDRD) Af Amer 57 L, Est GFR (MDRD) Non-Af 47 L, BUN/Creatinine Ratio 19.0, Glucose 92, Calcium 7.6 L 11/13/22 05:30: ESR 33 H 11/13/22 05:30: C-React Prot Ext Range 17.90 H 11/13/22 08:55: Stool Neutral Fats Cancelled, Stool Total Fats Cancelled, Stool Calprotectin Cancelled Micro: Microbiology 11/13/22 08:55 Stool C. difficile DNA Amplification - Final 11/13/22 08:55 Stool Stool Lactoferrin - Final 11/13/22 08:55 Stool Enteric Bacteriology - Final 11/09/22 03:00 Urine, Catheterized Urine Culture - Final Culture exhibits no growth. 11/09/22 08:45 Stool Enteric Bacteriology - Final 11/09/22 06:30 Stool Stool Lactoferrin - Final 11/09/22 02:31 Nasal Secretion SARS-CoV-2 & FLU Antigen (Rapid) - Final Rhythm Strip Rhythm Strip: Sinus Tach Rate: 114 Ectopy: None Physical Exam Narrative Alert awake oriented x 3, no obvious distress no JVD s1s2 no murmurs lungs clear anteriorly and posteriorly. Patient on room air abdomen soft no edema Assessment & Plan Assessment/Plan (1) Upper GI bleed: PLAN: Upper GI bleed secondary to peptic ulcer disease status posttreatment en doscopically. His hemoglobin seems to be stable. He has been on Protonix drip. This can be switched to IV every 12 hours. He will also need to be on Carafate 1 g p.o. 3 times daily for 4 weeks. He can be transitioned when he leaves the hospital to Protonix 40 mg p.o. twice daily. Continue to monitor H&H. (2) Crohn's disease: PLAN: I will order [facility] IBD SGI antibody analysis for inflammatory bowel disease specifically ulcerative colitis and Crohn's disease. I will also check an ESR, CRP, QuantiFERON gold, acute hepatitis panel, stool for fecal calprotectin, enteric pathogens, stool for lactoferrin, stool for pancreatic elastase, antibodies for celiac disease as all of these can present like inflammatory bowel disease and if he needs treatment for Crohn's disease we would like to make sure he has no infectious diarrhea at this time. (3) Elevated liver enzymes: PLAN: Elevated liver enzymes likely secondary to alcoholic hepatitis with low Madrey score. However we will check for autoimmune disease and chronic viral disease affecting possibly affecting the liver Charges/Coding Visit Charges Inpatient E&M: 36091 Subs Hosp L3
--- NOTE | 2022-11-13 14:07 | PCM.PN.REN ---
Subjective Subjective on new complaints Objective Data Objective Data Vital Signs: Vital Signs Temp Pulse Resp BP Pulse Ox O2 Del Method O2 Flow Rate 97.3 F L 86 19 H 125/79 H 97 Room Air 2 11/13/22 08:05 11/13/22 08:05 11/13/22 08:05 11/13/22 08:05 11/13/22 08:05 11/13/22 08:05 11/09/22 22:00 Oxygen Flow Rate (L/min) 2 Oxygen Delivery Method Room Air Weight: 84.3 kg Body Mass Index (BMI) 27.5 Intake & Output: Intake and Output for Last 24 Hours 11/11/22 11/12/22 11/13/22 23:59 23:59 23:59 Intake Total 5246.79 / 5246.79 2974.17 / 2974.17 450 / 450 Output Total 2775 / 3675 1500 / 1500 1550 / 1550 Balance 2471.79 / 1571.79 1474.17 / 1474.17 -1100 / -1100 Lab / Micro Data Result Diagrams: 11/13/22 05:30 11/13/22 05:30 Labs: Laboratory Results - last 24 hr 11/13/22 05:30: WBC 11.0, RBC 3.12 L, Hgb 10.2 L, Hct 31.8 L, MCV 101.9 H, MCH 32.7 H, MCHC 32.1 D, RDW Std Deviation 48.5 H, RDW Coeff of Oleksandr 13.1, Plt Count 454 H, MPV 9.1, Immature Gran % (Auto) 0.200, Neut % (Auto) 69.1, Lymph % (Auto) 19.8, [place] % (Auto) 7.1, Eos % (Auto) 3.2, Baso % (Auto) 0.6, Absolute Neuts (auto) 7.6, Absolute Lymphs (auto) 2.18, Nucleated RBC % 0 11/13/22 05:30: Sodium 143, Potassium 3.5, Chloride 112 H, Carbon Dioxide 22.0, Anion Gap 9, BUN 31 H, Creatinine 1.63 H, Estim Creat Clear Calc 52.41, Est GFR (MDRD) Af Amer 57 L, Est GFR (MDRD) Non-Af 47 L, BUN/Creatinine Ratio 19.0, Glucose 92, Calcium 7.6 L 11/13/22 05:30: ESR 33 H 11/13/22 05:30: C-React Prot Ext Range 17.90 H 11/13/22 08:55: Stool Neutral Fats Cancelled, Stool Total Fats Cancelled, Stool Calprotectin Cancelled Micro: Microbiology 11/13/22 08:55 Stool C. difficile DNA Amplification - Final 11/13/22 08:55 Stool Stool Lactoferrin - Final 11/13/22 08:55 Stool Enteric Bacteriology - Final 11/09/22 03:00 Urine, Catheterized Urine Culture - Final Culture exhibits no growth. 11/09/22 08:45 Stool Enteric Bacteriology - Final 11/09/22 06:30 Stool Stool Lactoferrin - Final 11/09/22 02:31 Nasal Secretion SARS-CoV-2 & FLU Antigen (Rapid) - Final Rhythm Strip Rhythm Strip: Sinus Tach Rate: 114 Ectopy: None Physical Exam Narrative Alert awake oriented x 3, no obvious distress no JVD s1s2 no murmurs lungs clear anteriorly and posteriorly. Patient on room air abdomen soft no edema Assessment & Plan Assessment/Plan (1) Acute kidney failure: PLAN: - BULE secondary to ATN from hypotension, intravascular volume depletion with concurrent lisinopril/hydrochlorothiazide and NSAID use. Baseline creatinine is normal. Renal ultrasound without any hydronephrosis. Urinalysis is not impressive. SCr 10.9 on admission down to 1.4 today. Electrolytes are acceptable. Good urine output. Blood pressure is okay. (2) Acute encephalopathy: (3) Hypokalemia: (4) Alcohol abuse, daily use: PLAN: Plan
--- NOTE | 2022-11-13 16:07 | DS.PCM_ITS ---
Providers Date of Admission: 11/09/22 Date of Discharge: 11/13/22 Primary Care Physician: Dr. Zia Osman MD Consultations 11/09/22 05:31 Consult: Nephrology Routine Consulting Provider: Rickey Brown Reason for Consult: BLUE EMERGENT Consult: No Notified: Yes Date Notified: 11/09/22 Time Notified: 05:17 Method of Notification: Answering Service 11/09/22 06:16 Consult: Collections Associate / Pulmonary Medicine Routine Consulting Provider: Jama Garner Reason for Consult: Septic shock EMERGENT Consult: No Notified: Yes Date Notified: 11/09/22 Time Notified: 06:48 Method of Notification: Verbal Method of Consult:: In-Person 11/09/22 13:21 Consult: Gastroenterology Routine Consulting Provider: [facility] Reason for Consult: hematochezia EMERGENT Consult: No Notified: Yes Date Notified: 11/09/22 Time Notified: 13:22 Method of Notification: Text Reason For Visit: ACUTE DEHYDRATION Diagnosis Discharge Diagnosis (1) Acute kidney failure: Status: Acute Code(s): N17.9 - Acute kidney failure, unspecified (2) Acute encephalopathy: Status: Acute Code(s): G93.40 - Encephalopathy, unspecified (3) Hypokalemia: Status: Acute Code(s): E87.6 - Hypokalemia (4) Alcohol abuse, daily use: Status: Acute Code(s): F10.10 - Alcohol abuse, uncomplicated Plan #Septic shock * now off levophed * septic shock has resolved * critical care and ID on board * on IV zosyn * blood cultures pending; urine cultures show no growth * wbc trended down to 11.1 * #Seizure: * Thought to be due to alcohol withdrawal versus infection. * CT of the brain showed mucosal thickening of the right maxillary sinuses but did not show any other acute intracranial pathology. * EEG didnt show any evidence of seizure disorder * IV Ativan as needed #Hyponatremia: resolved. #BLUE: * Creatinine is trending down to 4 from 8.545 yesterday * nephrology on board. * renal USG was unremarkable * management as per nephrology * * #non Anion gap metabolic acidosis: * Likely due to lactic acid and uremia. * bicarg is up 50 19 today. * nephro on board * on oral bicarb. #UGI bleed * on IV PPI * EGD showed erosive esophagitis and oozing gastric ulcers with a visible vessel * keeps complaining of abdominal pain. concern for peptic ulcer disease * was admitted with bloody diarrhea. * CT o the abdomen showed thickening of the stomach. * on IV pantoprazole and octreotide * #Elevated liver enzymes * Liver enzymes only minimally elevated. Will monitor. #History of chronic alcohol use disorder * At risk of withdrawal. On CIWA protocol with Ativan. On thiamine and folic acid as well as multivitamin. #Hypomagnesemia and hypokalemia: will replace aggressively and trend. Hypertension: Hold BP meds on account of hypotension. #Thrombocytosis: resolved. platelets are down to 448. #DVT prophylaxis: SCDs. Total time spent on evaluation and management of patient, reviewing chart and specialist notes, discussing plan with patient, his daughter and friend discussion with nursing and ancillary staff as well as documentation: 42 mins Disposition: transfer to PCU today Medications at Discharge Home Medications omeprazole 40 mg capsule,delayed release 40 mg PO DAILY REFLUX 07/04/15 finasteride 5 mg tablet 5 mg PO DAILY #30 tabs 06/20/17 magnesium oxide 400 mg (241.3 mg magnesium) tablet 400 mg PO BIDCM SUPPLEMENT 06/29/17 tamsulosin 0.4 mg capsule 0.4 mg PO DAILY@1730 PROSTATE 06/29/17 vitamin B12 500 mcg-folic acid 400 mcg tablet 1 tab PO QDAY 01/04/18 meloxicam 15 mg tablet 15 mg PO DAILY #21 tabs 09/14/22 amlodipine 10 mg tablet 10 mg PO DAILY #30 tabs 11/13/22 pantoprazole 40 mg tablet,delayed release 40 mg PO BID #60 tabs 11/13/22 sucralfate 1 gram tablet 1 g PO Q6H #120 tabs 11/13/22 Hospital Course Operations None Procedures None Summary of Care Provided Minutes Spent on Discharge: 55 Hospital Course: Patient is a 52-year-old male with a past medical history as outlined was admitted through the ED on November 09, 2022 with a complaint of nausea, vomiting and diarrhea. Patient had a history of chronic alcohol abuse though he said he had not drank much for about a week prior to admission. He usually drinks multiple beers daily. He did not have any history of seizures. On presentation to the ED he was found to be tachycardic and tachypneic and blood pressure was 77/52. Labs done showed markedly elevated white cell count of 22,000 and platelets were also elevated at 802,000. Chemistry was remarkable for sodium of 128 and potassium of 3 with bicarb of 14 and an anion gap of 25. Creatinine was 10.9 and BUN was 55. There was concern from EMS about patient experiencing a tonic-clonic seizure whilst in route to the hospital. His lactic acid was also markedly elevated at 8.5 and magnesium was 0.5. CT of the brain showed no acute intracranial pathology. Chest x-ray showed no acute cardiopulmonary process. He was admitted to the ICU and managed for septic shock with concern for a GI source of infection. He was also managed for BLUE and lactic acidemia. He was hydrated with IV fluids. However he did not respond to fluids and subsequently required vasopressors. Nephrology was consulted on account of BLUE and his e lectrolyte abnormalities were corrected with replacement. He did not have any
--- NOTE | 2022-11-13 16:07 | PCM.DC.SUM ---
Providers Date of Admission: 11/09/22 Date of Discharge: 11/13/22 Primary Care Physician: Dr. Zia Osman MD Consultations 11/09/22 05:31 Consult: Nephrology Routine Consulting Provider: Rickey Brown Reason for Consult: BLUE EMERGENT Consult: No Notified: Yes Date Notified: 11/09/22 Time Notified: 05:17 Method of Notification: Answering Service 11/09/22 06:16 Consult: Cigarette Stamper / Pulmonary Medicine Routine Consulting Provider: Jama Garner Reason for Consult: Septic shock EMERGENT Consult: No Notified: Yes Date Notified: 11/09/22 Time Notified: 06:48 Method of Notification: Verbal Method of Consult:: In-Person 11/09/22 13:21 Consult: Gastroenterology Routine Consulting Provider: [facility] Reason for Consult: hematochezia EMERGENT Consult: No Notified: Yes Date Notified: 11/09/22 Time Notified: 13:22 Method of Notification: Text Reason For Visit: ACUTE DEHYDRATION Diagnosis Discharge Diagnosis (1) Acute kidney failure: Status: Acute Code(s): N17.9 - Acute kidney failure, unspecified (2) Acute encephalopathy: Status: Acute Code(s): G93.40 - Encephalopathy, unspecified (3) Hypokalemia: Status: Acute Code(s): E87.6 - Hypokalemia (4) Alcohol abuse, daily use: Status: Acute Code(s): F10.10 - Alcohol abuse, uncomplicated Plan #Septic shock now off levophed septic shock has resolved critical care and ID on board on IV zosyn blood cultures pending; urine cultures show no growth wbc trended down to 11.1 #Seizure: Thought to be due to alcohol withdrawal versus infection. CT of the brain showed mucosal thickening of the right maxillary sinuses but did not show any other acute intracranial pathology. EEG didnt show any evidence of seizure disorder IV Ativan as needed #Hyponatremia: resolved. #BLUE: Creatinine is trending down to 4 from 8.545 yesterday nephrology on board. renal USG was unremarkable management as per nephrology #non Anion gap metabolic acidosis: Likely due to lactic acid and uremia. bicarg is up 50 19 today. nephro on board on oral bicarb. #UGI bleed on IV PPI EGD showed erosive esophagitis and oozing gastric ulcers with a visible vessel keeps complaining of abdominal pain. concern for peptic ulcer disease was admitted with bloody diarrhea. CT o the abdomen showed thickening of the stomach. on IV pantoprazole and octreotide #Elevated liver enzymes Liver enzymes only minimally elevated. Will monitor. #History of chronic alcohol use disorder At risk of withdrawal. On CIWA protocol with Ativan. On thiamine and folic acid as well as multivitamin. #Hypomagnesemia and hypokalemia: will replace aggressively and trend. Hypertension: Hold BP meds on account of hypotension. #Thrombocytosis: resolved. platelets are down to 448. #DVT prophylaxis: SCDs. Total time spent on evaluation and management of patient, reviewing chart and specialist notes, discussing plan with patient, his daughter and friend discussion with nursing and ancillary staff as well as documentation: 42 mins Disposition: transfer to PCU today Medications at Discharge Home Medications omeprazole 40 mg capsule,delayed release 40 mg PO DAILY REFLUX 07/04/15 finasteride 5 mg tablet 5 mg PO DAILY #30 tabs 06/20/17 magnesium oxide 400 mg (241.3 mg magnesium) tablet 400 mg PO BIDCM SUPPLEMENT 06/29/17 tamsulosin 0.4 mg capsule 0.4 mg PO DAILY@1730 PROSTATE 06/29/17 vitamin B12 500 mcg-folic acid 400 mcg tablet 1 tab PO QDAY 01/04/18 meloxicam 15 mg tablet 15 mg PO DAILY #21 tabs 09/14/22 amlodipine 10 mg tablet 10 mg PO DAILY #30 tabs 11/13/22 pantoprazole 40 mg tablet,delayed release 40 mg PO BID #60 tabs 11/13/22 sucralfate 1 gram tablet 1 g PO Q6H #120 tabs 11/13/22 Hospital Course Operations None Procedures None Summary of Care Provided Minutes Spent on Discharge: 55 Hospital Course: Patient is a 52-year-old male with a past medical history as outlined was admitted through the ED on November 09, 2022 with a complaint of nausea, vomiting and diarrhea. Patient had a history of chronic alcohol abuse though he said he had not drank much for about a week prior to admission. He usually drinks multiple beers daily. He did not have any history of seizures. On presentation to the ED he was found to be tachycardic and tachypneic and blood pressure was 77/52. Labs done showed markedly elevated white cell count of 22,000 and platelets were also elevated at 802,000. Chemistry was remarkable for sodium of 128 and potassium of 3 with bicarb of 14 and an anion gap of 25. Creatinine was 10.9 and BUN was 55. There was concern from EMS about patient experiencing a tonic-clonic seizure whilst in route to the hospital. His lactic acid was also markedly elevated at 8.5 and magnesium was 0.5. CT of the brain showed no acute intracranial pathology. Chest x-ray showed no acute cardiopulmonary process. He was admitted to the ICU and managed for septic shock with concern for a GI source of infection. He was also managed for BLUE and lactic acidemia. He was hydrated with IV fluids. However he did not respond to fluids and subsequently required vasopressors. Nephrology was consulted on account of BLUE and his electrolyte abnormalities were corrected with replacement. He did not have any more seizures during this admission and his seizure was thought to be possibly due to alcohol withdrawal. He was started on broad-spectrum IV antibiotics. Blood cultures were obtained which were negative. Enteric pathogens of diarrhea was also negative. Patient was noted to be having some GI bleed. He had EGD which showed grade C erosive esophagitis and oozing gastric ulcers with a visible vessel and no gross lesion in the duodenal bulb. He was started on pantoprazole as well as sucralfate. Patient's BLUE was thought to be due to intra vascular volume loss from dehydration. His creatinine trended all the way down to 1.63 and he felt much better. He had also been on hydrochlorothiazide and lisinopril and this was thought to also contribute to the BLUE. His blood cultures were negative. Patient felt much better he was weaned off of vasopressors. He improved and was discharged home on 11/13/2022. He had told gastroenterology that he had Crohn's disease but could not give any further information about it. A work-up was also ordered by gastroenterology. He is follow-up with gastroenterology on outpatient basis for this. He is also to follow-up with nephrology. His lisinopril and hydrochlorothiazide were discontinued and he was started on p.o. amlodipine 10 mg daily. He is to follow-up with his primary care doctor for blood pressure medications to be adjusted as needed. Patient seen and examined prior to discharge. He felt much better and said he was ready to go home. He had no complaints and review of systems otherwise negative. Labs and vitals reviewed. Medication reviewed and reconciled. Physical Exam Const alert, oriented x3 and no apparent distress Constitutional Narrative: restless General Appearance: cooperative, comfortable and well kempt HEENT normocephalic, head/scalp atraumatic, hearing grossly normal bilaterally and moist oral mucous membranes Mouth: oral and palatal mucosa normal Eyes PERRL and EOMs intact bilaterally Neck no lymphadenopathy, supple and no JVD Lymph Lymphatic: no lymphadenopathy noted and no lymphedema noted Resp normal respiratory effort and normal air movement Resp Narrative: mildly diminished breath sounds bibasally. No wheezes or crackles. On room air. Cardio regular rate, regular rhythm, S1 normal heart sound, S2 normal heart sound and no murmurs Cardio Narrative: tachypneic GI normal to inspection, nondistended, normoactive bowel sounds, soft to palpation, non-tender and non-distended Extremity normal to inspection, full ROM, normal capillary refill, no clubbing, cyanosis or edema and no calf tenderness General Extremity: no tenderness to palpation of joints or extremities Skin no rashes or lesions noted General Skin Exam: no breakdown Neuro oriented x3, CN's II-XII intact bilaterally, moves all extremities, no focal motor deficits, no sensory deficits noted and deep tendon reflexes 2+ bilaterally Sensorium / Orientation: awake Motor Exam: strength 5/5 throughout Psych affect normal Psych Narrative: restless Appearance: appropriate Weight / BMI Weight Weight: 185 lb 13.595 oz Body Mass Index (BMI) 27.5 ABG / Lab / Microbiology Data Result Diagrams: 11/13/22 05:30 11/13/22 05:30 Laboratory: Laboratory Results - last 24 hr 11/13/22 05:30: WBC 11.0, RBC 3.12 L, Hgb 10.2 L, Hct 31.8 L, MCV 101.9 H, MCH 32.7 H, MCHC 32.1 D, RDW Std Deviation 48.5 H, RDW Coeff of Oleksandr 13.1, Plt Count 454 H, MPV 9.1, Immature Gran % (Auto) 0.200, Neut % (Auto) 69.1, Lymph % (Auto) 19.8, [place] % (Auto) 7.1, Eos % (Auto) 3.2, Baso % (Auto) 0.6, Absolute Neuts (auto) 7.6, Absolute Lymphs (auto) 2.18, Nucleated RBC % 0 11/13/22 05:30: Sodium 143, Potassium 3.5, Chloride 112 H, Carbon Dioxide 22.0, Anion Gap 9, BUN 31 H, Creatinine 1.63 H, Estim Creat Clear Calc 52.41, Est GFR (MDRD) Af Amer 57 L, Est GFR (MDRD) Non-Af 47 L, BUN/Creatinine Ratio 19.0, Glucose 92, Calcium 7.6 L 11/13/22 05:30: ESR 33 H 11/13/22 05:30: C-React Prot Ext Range 17.90 H 11/13/22 08:55: Stool Neutral Fats Cancelled, Stool Total Fats Cancelled, Stool Calprotectin Cancelled Microbiology: Microbiology 11/13/22 08:55 Stool C. difficile DNA Amplification - Final 11/13/22 08:55 Stool Stool Lactoferrin - Final 11/13/22 08:55 Stool Enteric Bacteriology - Final 11/09/22 03:00 Urine, Catheterized Urine Culture - Final Culture exhibits no growth. 11/09/22 08:45 Stool Enteric Bacteriology - Final 11/09/22 06:30 Stool Stool Lactoferrin - Final 11/09/22 02:31 Nasal Secretion SARS-CoV-2 & FLU Antigen (Rapid) - Final D/C Instructions Discharge Diet: Low fat / Low cholesterol Discharge Activity: Return to Normal Activity Weight Bearing Status: Weight bearing as tolerated Call your doctor if you observe: Fever of 101 or Higher, Shortness of breath, Dizziness, Swelling in the ankles, Chest pain and Increased palpitations (irregular heartbeat) Meaningful Use Info Meaningful Use Diagnoses (Choose all that apply): None applicable Discharge Plan Admission Admit Date/Time: 11/09/22 05:06 Primary Reason for Your Visit: Upper GI bleed, septic shock Attending Provider: Cally Zacarias Primary Care Provider: Zia Osman Consulting Providers: Jama Garner ; Reed Espana ; Rickey Brown Instructions Patient Instructions: ED Upper GI Bleeding (Stable) Discharge Orders/Prescriptions Prescriptions: New pantoprazole 40 mg tablet,delayed release (DR/EC) 40 mg PO BID Qty: 60 2RF sucralfate 1 gram tablet 1 g PO Q6H Qty: 120 1RF amlodipine 10 mg tablet 10 mg PO DAILY Qty: 30 2RF Continued vitamin B12 500 mcg-folic acid 400 mcg tablet 500-400 mcg tablet 1 tab PO QDAY meloxicam 15 mg tablet 15 mg PO DAILY Qty: 21 0RF omeprazole 40 MG capsule 40 mg PO DAILY Label Comments: GERD finasteride 5 MG tablet 5 mg PO DAILY Qty: 30 0RF magnesium oxide 400 MG tablet 400 mg PO BIDCM tamsulosin 0.4 MG capsule 0.4 mg PO DAILY@1730 Discontinued lisinopril-hydrochlorothiazide 1 TABLET tablet 1 tab PO DAILY Rx Instructions: 20/12.5mg Referrals / Follow Up: Rickey Brown MD [Med Staff - Consulting] - Within 2 Weeks Zia Osman MD [Primary Care Provider] - Within 2 Weeks Gino Briscoe DO [Med Staff - Active Staff] - Within 2 Weeks Disposition Disposition (needs filled in before D/C Order can be placed): Home, Self Care Charges/Coding Visit Charges Inpatient E&M: 35571 Disch Hosp >30min
[2022-11-16 15:08] LABS: Anti-Centromere B Ab <0.2 AI (0.0-0.9); Anti-Chromatin <0.2 AI (0.0-0.9); Anti-Jo <0.2 AI (0.0-0.9); Anti-Scleroderma-70 AB <0.2 AI (0.0-0.9); RNP Ab <0.2 AI (0.0-0.9); SJOGREN'S Anti-SS-A test < 0.2 AI (0.0-0.9); SJOGREN'S Anti-SS-B test < 0.2 AI (0.0-0.9); Smith Ab <0.2 AI (0.0-0.9)
[2022-11-16 15:39] LABS: Anti-dsDNA Ab <1 IU/mL (0-9)
[2022-11-17 21:07] LABS: Albumin 2.7 g/dL (2.9-4.4); Alpha-1-Globulins 0.4 g/dL (0.0-0.4); Alpha-2-Globulins 0.9 g/dL (0.4-1.0); Cytoplasmic Ab (C-ANCA) <1:20 titer (Neg:<1:20); Gamma Globulin 0.6 g/dL (0.4-1.8); HEPATITIS B SURFACE AG Negative (Negative); Hep C Antibodies Non Reactive (Non Reactive); Hepatitis A IgM Antibody Negative (Negative); Hepatitis B Core AB IgM Negative (Negative); Immunoglobulin A 222 mg/dL (90-386); Immunoglobulin G 506 mg/dL (603-1613); Immunoglobulin M 52 mg/dL (20-172); PROEL- TOTAL PROTEIN 5.5 g/dL (6.0-8.5); QNTFERON TB Mitogen Value > 10.00 IU/mL (.); QNTFERON TB Nil Value 1.25 IU/mL (.); QNTFERON TB1+ Ag Value 0.02 IU/mL (.); QNTFERON TB2+ Ag Value 0.02 IU/mL (.)
[2022-11-17 21:47] LABS: Perinuclear Ab (P-ANCA) <1:20 titer (Neg:<1:20); QNTIFERON TB Positive Criteria Negative (Negative)
[2022-11-18 19:44] LABS: Pancreatic Elastase, Fecal 323 (>200)
[2022-12-01 12:08] LABS: Calprotectin, Stool 60 ug/g (0-120); Fats, Neutral Normal (.); Fats, Total Increased (.)
== END 2022-11-13 16:50 | disposition home or self-care (01) | DRG 720 ==
LOC: ED 03:25 → ICU 05:48
PROVIDERS: Emergency Medicine; Internal Medicine; Internal Medicine Critical Care Medicine; Internal Medicine Gastroenterology; Nurse Practitioner Adult Health; Admitting Provider Hospitalist; Emergency Provider Emergency Medicine; PCP Family Medicine; Visit Provider Student in an Organized Health Care Education/Training Program
PROC: 0DJ08ZZ Inspection of Upper Intestinal Tract, Via Natural or Artificial Opening Endoscopic (ICD-10-PCS; CPT 43235; principal; 2022-11-10 15:40)
DX: A41.9 Sepsis, unspecified organism (principal); N17.0 Acute kidney failure with tubular necrosis; R65.21 Severe sepsis with septic shock; G93.41 Metabolic encephalopathy; K25.4 Chronic or unspecified gastric ulcer with hemorrhage; G40.909 Epilepsy, unspecified, not intractable, without status epilepticus; F10.20 Alcohol dependence, uncomplicated; K50.90 Crohn's disease, unspecified, without complications; E87.1 Hypo-osmolality and hyponatremia; I10 Essential (primary) hypertension; F17.210 Nicotine dependence, cigarettes, uncomplicated; E86.0 Dehydration; K52.9 Noninfective gastroenteritis and colitis, unspecified; E87.6 Hypokalemia; E86.1 Hypovolemia; K21.9 Gastro-esophageal reflux disease without esophagitis; E83.42 Hypomagnesemia; K21.00 Gastro-esophageal reflux disease with esophagitis, without bleeding; K70.10 Alcoholic hepatitis without ascites; E87.21 Acute metabolic acidosis; N40.0 Benign prostatic hyperplasia without lower urinary tract symptoms; K22.10 Ulcer of esophagus without bleeding; K25.9 Gastric ulcer, unspecified as acute or chronic, without hemorrhage or perforation
CPT/HCPCS: 36415; 51702; 70450; 71045; 74018; 76770; 80048; 80053; 80069; 80074; 81001; 82077; 82140; 82653; 82705; 82784; 82803; 82962; 83036; 83605; 83630; 83690; 83735; 83993; 84100; 84165; 84484; 85014; 85018; 85025; 85610; 85652; 85730; 86140; 86225; 86235; 86256; 86334; 86480; 87040; 87086; 87428; 87493; 87506; 87641; 93005; 94762; 95819; 97116; 97162; 97166; 97802; 99285; 99406; J7030; J7050; J7120; A4216; J2405

== ENCOUNTER 2022-11-17 14:38 | Observation (INO) | payer MEDICAID, SELFPAY ==
[2022-11-17 14:39] VITALS: BP 116/83; PULSE 104; RESP 18; TEMP 36.9; O2SAT 98; BMI 30.5
--- NOTE | 2022-11-17 15:25 | EX.ED.DYSGE1 ---
HPI History of Present Illness Chief Complaint: Abn Labs [facility] Medical History Acute encephalopathy Alcohol abuse, daily use Depression GERD (gastroesophageal reflux disease) HTN (hypertension) Perianal abscess Serotonin syndrome Serotonin syndrome Smoker Urinary retention due to benign prostatic hyperplasia Home Medications finasteride 5 mg tablet 5 mg PO DAILY #30 tabs 06/20/17 [Rx Last Taken 05/30/18] magnesium oxide 400 mg (241.3 mg magnesium) tablet 400 mg PO BIDCM SUPPLEMENT 06/29/17 [History Last Taken 05/30/18] tamsulosin 0.4 mg capsule 0.4 mg PO DAILY@1730 PROSTATE 06/29/17 [History Last Taken 05/30/18] vitamin B12 500 mcg-folic acid 400 mcg tablet 1 tab PO QDAY 01/04/18 [History Last Taken 05/30/18] amlodipine 10 mg tablet 10 mg PO DAILY #30 tabs 11/13/22 [Rx Last Taken Unknown] pantoprazole 40 mg tablet,delayed release 40 mg PO BID #60 tabs 11/13/22 [Rx Last Taken Unknown] sucralfate 1 gram tablet 1 g PO Q6H #120 tabs 11/13/22 [Rx Last Taken Unknown] allopurinol 300 mg tablet 300 ea PO DAILY 11/17/22 [History Last Taken Unknown] Allergy/AdvReac Type Severity Reaction Status Date / Time Penicillins Allergy Unknown Verified 11/17/22 14:40 fluoxetine [From Prozac] AdvReac Other Verified 11/17/22 14:40 Family History Sister Diabetes Heart disease Mother CAD (coronary artery disease) Surgical History S/P right knee arthroscopy S/P tonsillectomy Social History Smoking Status: Current every day smoker tobacco type: cigarettes alcohol intake: current alcohol intake frequency: holidays/special occasions only EXAM Physical Exam Const Vital Signs: 11/17/22 14:39 11/17/22 15:06 Temperature 98.4 F Temperature Source Temporal Pulse Rate 104 H Respiratory Rate 18 Respiratory Effort Normal Non-Labored Respiratory Pattern Normal Blood Pressure 116/83 H Blood Pressure Mean 94 Pulse Ox 98 Oxygen Delivery Method Room Air Discharge Plan Triage Chief Complaint: Abn Labs ED Midlevel Provider: Sina Wang ED Provider: Will Hector Dx/Rx/DC Orders Prescriptions: No Action vitamin B12 500 mcg-folic acid 400 mcg tablet 500-400 mcg tablet 1 tab PO QDAY allopurinol 300 mg tablet 300 ea PO DAILY Label Comments: TAKE 1 TABLET BY MOUTH DAILY finasteride 5 MG tablet 5 mg PO DAILY Qty: 30 0RF magnesium oxide 400 MG tablet 400 mg PO BIDCM tamsulosin 0.4 MG capsule 0.4 mg PO DAILY@1730 pantoprazole 40 mg tablet,delayed release (DR/EC) 40 mg PO BID Qty: 60 2RF sucralfate 1 gram tablet 1 g PO Q6H Qty: 120 1RF amlodipine 10 mg tablet 10 mg PO DAILY Qty: 30 2RF Primary Care Provider: Zia Osman Referrals: Zia Osman MD [Primary Care Provider] -
--- NOTE | 2022-11-17 15:29 | EDS_ITS ---
HPI <SYDNEE Mejia - Last Filed: 11/17/22 16:32> History of Present Illness Chief Complaint: Abn Labs Narrative Narrative: Patient is a 52-year-old male with history of alcohol abuse, hypertension, GERD, depression who presents to the emergency department for hypokalemia.Patient was recently admitted to the hospital for 1 week for sepsis. He is no longer on antibiotics. He had multiple areas of his stomach cauterized by Dr. Briscoe secondary to upper GI bleed. Patient has been out for the last 4 days, he has not drank alcohol. He is still smoking cigarettes. He states he feels generalized weak worse in his legs. Patient's laboratory values show a leukocytosis with a blood count of 13.2, this is slightly elevated from November 13, 2022. Patient's calcium was 7.6 on November 13, it is now 6.1 which is critical low which was drawn today on November 17. Patient was told to come into the emergency department today for evaluation. He denies any other injury. PFSH <SYDNEE Mejia - Last Filed: 11/17/22 16:32> [facility] Medical History Acute encephalopathy Alcohol abuse, daily use Depression GERD (gastroesophageal reflux disease) HTN (hypertension) Perianal abscess Serotonin syndrome Serotonin syndrome Smoker Urinary retention due to benign prostatic hyperplasia Home Medications finasteride 5 mg tablet 5 mg PO DAILY #30 tabs 06/20/17 [Rx Last Taken 05/30/18] magnesium oxide 400 mg (241.3 mg magnesium) tablet 400 mg PO BIDCM SUPPLEMENT 06/29/17 [History Last Taken 05/30/18] tamsulosin 0.4 mg capsule 0.4 mg PO DAILY@1730 PROSTATE 06/29/17 [History Last Taken 05/30/18] vitamin B12 500 mcg-folic acid 400 mcg tablet 1 tab PO QDAY 01/04/18 [History Last Taken 05/30/18] amlodipine 10 mg tablet 10 mg PO DAILY #30 tabs 11/13/22 [Rx Last Taken Unknown] pantoprazole 40 mg tablet,delayed release 40 mg PO BID #60 tabs 11/13/22 [Rx Last Taken Unknown] sucralfate 1 gram tablet 1 g PO Q6H #120 tabs 11/13/22 [Rx Last Taken Unknown] allopurinol 300 mg tablet 300 ea PO DAILY 11/17/22 [History Last Taken Unknown] Allergy/AdvReac Type Severity Reaction Status Date / Time Penicillins Allergy Unknown Verified 11/17/22 14:40 fluoxetine [From Prozac] AdvReac Other Verified 11/17/22 14:40 Family History Sister Diabetes Heart disease Mother CAD (coronary artery disease) Surgical History S/P right knee arthroscopy S/P tonsillectomy Social History Smoking Status: Current every day smoker tobacco type: cigarettes alcohol intake: current alcohol intake frequency: holidays/special occasions only ROS <SYDNEE Mejia - Last Filed: 11/17/22 16:32> ROS ED ROS Narrative Constitutional: Negative for fever, chills, weight loss. Positive generalized weakness Eyes: Negative for vision loss, vision change, double vision ENT: Negative for any sore throat, ear pain, congestion Cardiovascular: Negative for any chest pain, tightness, palpitations Respiratory: Negative for any cough, sputum production, hemoptysis, dyspnea, dyspnea on exertion, orthopnea Gastrointestinal: Negative for any abdominal pain, nausea, vomiting, diarrhea, constipation, blood in stool, blood in vomit : Negative for any urinary frequency, dysuria, retention, blood in urine Muscle skeletal: Negative for any muscle joint pain, stiffness, myalgias, arthralgias, neck pain, back pain. Positive for lower extremity achiness, pain Neurological: Negative for any headache, syncope, numbness or tingling, dizziness Skin: Negative for any rashes, lumps, itching, abrasions, lacerations Psychiatric: Negative for any depression, anxiety, stress, suicidal ideation, homicidal ideation Hematologic: Negative for any easy bruising, excessive bruising, easy bleeding Allergies: Negative for any eczema, hives, rash EXAM <SYDNEE Mejia - Last Filed: 11/17/22 16:32> Physical Exam Narrative Exam Narrative: Vital signs reviewed. HEET: Head normocephalic atraumatic, TMs clear bilaterally. Posterior pharynx is clear, moist mucous membranes. Nares clear bilaterally. Neck: Supple with no lymphadenopathy or tenderness. No signs of meningismus, negative jolt sign. Cardiac: Regular rate and rhythm no murmurs gallops or rubs, equal peripheral pulses bilaterally. Respiratory: Lungs clear to auscultation bilaterally. No chest tenderness. Abdomen: Soft, nontender, nondistended. No abdominal bruit or pulsatile masses. No hepatosplenomegaly Extremities: No peripheral edema, no signs of gross trauma or deformity. Active full range of motion of all extremities. Neuro: Cranial nerves II through XII intact, no focal neurological deficits. Negative Trousseau sign, positive chvostek sign. Patient is showing signs of hypocalcemia Skin: Clean dry and intact with no rash, purpura, petechiae, vesicles or pustules. Backs/flank: No CVA tenderness, no midline spinal tenderness, no deformity. Psych: Normal mood and affect. No SI, HI or acute psychosis. Const Vital Signs: 11/17/22 14:39 11/17/22 15:06 Temperature 98.4 F Temperature Source Temporal Pulse Rate 104 H Respiratory Rate 18 Respiratory Effort Normal Non-Labored Respiratory Pattern Normal Blood Pressure 116/83 H Blood Pressure Mean 94 Pulse Ox 98 Oxygen Delivery Method Room Air Positive well nourished and well developed General Appearance ED: well developed <Dr. Will Hector MD - Last Filed: 11/17/22 16:34> Physical Exam Const Vital Signs: 11/17/22 14:39 11/17/22 15:06 Temperature 98.4 F Temperature Source Temporal Pulse Rate 104 H Respiratory Rate 18 Respiratory Effort Normal Non-Labored Respiratory Pattern Normal Blood Pressure 116/83 H Blood Pressure Mean 94 Pulse Ox 98 Oxygen Delivery Method Room Air [facility] <SYDNEE Mejia - Last Filed: 11/17/22 16:32> [facility] Lab Data Labs: Laboratory Results - last 24 hr 11/17/22 15:22 Magnesium 0.3 L* EKG Initial EKG: Comments: EKG showed a normal sinus rhythm, OK interval 140 ms, QRS duration 94 ms Treatment and Re-Evaluation :: Patient appears to be in no distress, vital signs are stable. Patient appears to be nontoxic. Patient is brought into the emergency department for hypocalcemia with a calcium of 6.1. Secondary to the patient being symptomatic secondary to hypocalcemia, patient was given 4 g of calcium gluconate, a magnesium level will also be checked. Patient also had critical low magnesium at 0.3. Patient will also receive parenteral IV magnesium. Secondary to patient being symptomatic with these electrolyte changes, the patient will be admitted to the hospital. Patient be admitted to Dr. Davidson's service. Patient's vital signs remained stable. Patient is a nontoxic. Patient is stable for admission. <Dr. Will Hector MD - Last Filed: 11/17/22 16:34> [facility] Narrative Medical decision making narrative: I have personally performed a face to face assessment of the patient and have reviewed the CONCEPCION Note. I performed a substantive portion of the visit including all aspects of the following. My morocho findings include: History is remarkable for low calcium. Patient was sent to ER by Dr. Briscoe's nurse practitioner. Patient denies history of pancreatitis. Patient not had a recent blood transfusion. He does not have history of thyroid or parathyroid disease. He is an alcoholic. He was recently treated for upper GI bleed. Patient does complain of abdominal pain, which he contributes to the recent EGD. This may be due to his hypocalcemia. Patient does complain of twitchy sensation. He denies perioral numbness. He does complain of pain in his feet due to acute gouty arthritis attack. He denies history of malignancy. Exam is patient appears older than reported age. He is not well-groomed. HEENT exam is remarkable for positive Chvostek sign. He does have poor dentition. Neck is supple. Trachea is midline. He has no carotid bruits. Heart is rapid and regular. There is no murmur, gallop or rub. Lungs are clear to auscultation. Abdomen is slightly distended tympanitic with diffuse pain. Does not have pain specifically in the right or left upper quadrant. Patient's reflexes are brisk. He does not have pathologic spread. He does have clonus at the ankles bilaterally. Did not assess for Trousseau sign. Medical Decision Making calcium is 6.1 and 6.9 when corrected for albumin of 3.0. Since patient is symptomatic we will treat with IV calcium gluconate. Will assess magnesium since there is a correlation with hypomagnesemia and hypocalcium. There is no concern for acute pancreatitis. Other additions or changes: IV calcium and IV magnesium as ordered. Case was discussed with hospitalist for admission. Lab Data Labs: Laboratory Results - last 24 hr 11/17/22 15:22 Magnesium 0.3 L* EKG Initial EKG: Attestation: I personally reviewed and interpreted this EKG as follows: Interpretation: Sinus Rhythm (Rate is 92. OK interval 140 ms. Cures duration 84 ms. QT duration 374 ms. [place] is normal. There is artifact noted. There is no ischemic abnormality noted) <Dr. Will Hector MD - Last Filed: 11/17/22 16:34> Critical Care Time Critical Care Time: Yes Critical care time (excluding procedures): 30-74 minutes (31), Including time spent: (History, physical, documentation, interpretation laboratory results initiation of therapy), Discussing w/Patient &/or Family/Computer Installation Engineer (Patient, daughter and significant other), Discussing w/Consultants and Arranging Admission or Transfer Discharge Plan Dx/Rx/DC Orders Clinical Impression: Hypocalcemia syndrome, Hypomagnesemia, Anemia, Sinus tachycardia seen on fiscal services manager Disposition Disposition: Acute Care Hospital [facility]
[2022-11-17 16:13] LABS: Magnesium 0.3 mg/dL (1.6-2.6)
--- NOTE | 2022-11-17 16:41 | PCM.HP.STD ---
HPI - General General Date of Admission: 11/17/22 Date of Service: 11/17/22 Chief Complaint: Abnormal labs HPI Narrative ELIE GAMEZ, is a 52 M with a history of gout, alcohol use disorder in early remission, GI bleed status post cauterization, BPH who presented to [facility] 11/17/22 due to lab abnormalities. He was recently admitted to the hospital for septic shock and had acute kidney failure as well as upper GI bleed bleed and EGD showed erosive esophagitis and oozing gastric ulcer with visible vessel. He was seen today at his gastroenterology office follow-up and had labs ordered, he was found to have a calcium of 6.1 and was sent to the emergency department. In the ED he had a magnesium checked which was 0.3 and he was found to be symptomatic with his hypocalcemia, hospitalist consulted for admission. Patient reports that he had overall been doing better since getting out of the hospital and has not been drinking but has had some numbness and tingling in his fingers and toes over the past several days. Also has had some aching in his feet and ankles since he started walking on the more she is unsure if it is gout or not as he has had gout in the past. Denies diarrhea over the past several days and reports he has been taking calcium and magnesium supplements. No nausea or vomiting, overall eating well. Denied urinary complaints. PENDING SALE TO [facility] Medical History Acute encephalopathy Alcohol abuse, daily use Depression GERD (gastroesophageal reflux disease) HTN (hypertension) Perianal abscess Serotonin syndrome Serotonin syndrome Smoker Urinary retention due to benign prostatic hyperplasia Home Medications finasteride 5 mg tablet 5 mg PO DAILY #30 tabs 06/20/17 [Rx Last Taken 05/30/18] magnesium oxide 400 mg (241.3 mg magnesium) tablet 400 mg PO BIDCM SUPPLEMENT 06/29/17 [History Last Taken 05/30/18] tamsulosin 0.4 mg capsule 0.4 mg PO DAILY@1730 PROSTATE 06/29/17 [History Last Taken 05/30/18] vitamin B12 500 mcg-folic acid 400 mcg tablet 1 tab PO QDAY 01/04/18 [History Last Taken 05/30/18] amlodipine 10 mg tablet 10 mg PO DAILY #30 tabs 11/13/22 [Rx Last Taken Unknown] pantoprazole 40 mg tablet,delayed release 40 mg PO BID #60 tabs 11/13/22 [Rx Last Taken Unknown] sucralfate 1 gram tablet 1 g PO Q6H #120 tabs 11/13/22 [Rx Last Taken Unknown] allopurinol 300 mg tablet 300 ea PO DAILY 11/17/22 [History Last Taken Unknown] Allergy/AdvReac Type Severity Reaction Status Date / Time Penicillins Allergy Unknown Verified 11/17/22 14:40 fluoxetine [From Prozac] AdvReac Other Verified 11/17/22 14:40 Family History Sister Diabetes Heart disease Mother CAD (coronary artery disease) Surgical History S/P right knee arthroscopy S/P tonsillectomy Social History Smoking Status: Current every day smoker tobacco type: cigarettes alcohol intake: current alcohol intake frequency: holidays/special occasions only ROS ROS Narrative General: Denies fever/chills HENT: Denies headache, denies stuffy nose, denies sore throat EYES: Feels like everything is seemed brighter since he has been discharged from the hospital Resp: Denies cough, denies shortness of breath Cardiac: Denies chest pain GI: Denies significant abdominal pain, denies changes in bowel, denies nausea/vomiting : Denies changes in urination Extremity: Denies swelling MSK: Denies weakness Neuro: Has some numbness and tingling in fingers and toes Heme: Denies any bleeding or bruising Skin: Denies rashes Psychiatric: No complaints voiced Vital Signs Vital Signs Vital Signs: 11/17/22 14:39 11/17/22 15:06 Temperature 98.4 F Temperature Source Temporal Pulse Rate 104 H Respiratory Rate 18 Respiratory Effort Normal Non-Labored Respiratory Pattern Normal Blood Pressure 116/83 H Blood Pressure Mean 94 Pulse Ox 98 Oxygen Delivery Method Room Air Weight Weight: 93.894 kg Body Mass Index (BMI) 30.5 Physical Exam Narrative General: Alert, oriented, no apparent distress HEENT: Atraumatic, normocephalic, Chvostek sign positive Eyes: Anicteric, normal conjunctiva, extraocular movements grossly intact, no nystagmus on far lateral gaze Neck: Supple Respiratory: Clear to auscultation bilaterally, normal respiratory effort Cardiovascular: Regular rate and rhythm GI: Soft, nontender, nondistended Extremities: No edema Musculoskeletal: Moving all extremities Neuro: No overt focal neurological deficits, had clonus on ED exam however given pain in his feet and ankles this was deferred Skin: No rashes appreciated Psych: Cooperative Results Lab / Micro Data Labs: Laboratory Results - last 24 hr 11/17/22 15:22: Magnesium 0.3 L* Assessment & Plan Assessment/Plan (1) Hypocalcemia syndrome: (2) Hypomagnesemia: PLAN: Plan #Hypocalcemia and hypomagnesemia -Symptomatic with tingling in hands and feet, Chvostek sign positive -Ca 6.1 despite being 7.4 several days ago (still low when corrected for alb) and magnesium 0.3mg -Pt reports taking his Ca and Mg supplements and that he has not been drinking, also denies any diarrhea in multiple days -Given his severity of renal injury with creatinine returning to normal could be post kidney injury diuresis causing magnesium wasting leading PTH resistance or deficiency, no s/s of pancreatitis and lipase not elevated -I's and O's, daily weights -Received 4 g of calcium and 4 g of magnesium in ED -Will start fluids -Slightly elevated white blood cell count however no signs or symptoms of infection, monitor closely -Will monitor on tele, EKG 92 HR, NSR -Trend BMP and mg -Check phos, vitamin d, pth -Urine Ca magnesium and urine creatinine -Suspect kidney as source of current electrolyte abnormalities, if unable to correct may need to consider discontinuing PPI though do not feel that would cause this profound change in this short period of time #History of upper GI bleed -During his last admission earlier this month had EGD that showed erosive esophagitis and oozing gastric ulcers with visible vessel -Is on PPI 40 mg twice daily and sucralfate -Hemoglobin stable #Tobacco use -Nicotine patch -Advised cessation #hx gout -Reports hx #Hx of alcohol use disorder- in remission -Continue to encourage cessation #DVT ppx: SCDs given recent GI bleed Justa Davidson MD Time spent in the patient's overall evaluation,decision-making process, review of diagnostic data, adjustment of management, discussion with other providers, nursing nursing and ancillary staff involved in patient's care documentation, 60 minutes Charges/Coding Visit Charges Inpatient E&M: 09724 Init Hosp L2
[2022-11-17] MEDS: Magnesium Sulfate 4gm/100mL 4 GM/100 ML IV.SOLN. IV ×2 (16:59→20:37)
[2022-11-17 18:35] VITALS: BP 125/79; PULSE 92; RESP 18; TEMP 37; O2SAT 96
[2022-11-17 18:41] VITALS: BP 126/82; PULSE 95; RESP 16; TEMP 36.9; O2SAT 99
[2022-11-17 18:42] VITALS: BMI 30.2
[2022-11-17 20:04] LABS: Anion Gap 3 (5-15); BUN 8 mg/dL (7-18); Calcium,Total 6.9 mg/dL (8.5-10.1); Chloride 111 mmol/L (98-107); Creatinine, Serum 0.73 mg/dL (0.70-1.30); EST Glomerular Filtration Rate 120 mL/min (>60); Est Glom Filt Rate - Afr Amer 145 mL/min (>60); Estimated Creatinine Clearance 117.03 ml/min; Glucose 134 mg/dL (74-106); Magnesium 1.2 mg/dL (1.6-2.6); Potassium 3.5 mmol/L (3.5-5.1); Sodium Level 141 mmol/L (136-145)
[2022-11-17] MEDS: Sucralfate 1 GM Tablet PO ×2 (20:13→23:53)
[2022-11-17] MEDS: Lactated Ringers 1,000 ML 100 ML IV (20:30)
[2022-11-17] MEDS: Pantoprazole Sodium 40 MG Tablet PO (20:32)
[2022-11-17 22:51] LABS: Urea Nitrogen, Urine 238 mg/dL (NO RANGE EST.); Urine Chloride 125 mmol/L (Not Establ.); Urine Sodium 181 mmol/L (Not Establ.)
[2022-11-17 23:06] LABS: Calcium, Urine (Random) 9.6 mg/dL (Not Estab.)
[2022-11-17 23:11] LABS: Anion Gap 6 (5-15); BUN 8 mg/dL (7-18); BUN/Creat Ratio 12.1 RATIO (10-20); Chloride 111 mmol/L (98-107); Creatinine, Serum 0.66 mg/dL (0.70-1.30); EST Glomerular Filtration Rate 134 mL/min (>60); Est Glom Filt Rate - Afr Amer 162 mL/min (>60); Estimated Creatinine Clearance 129.44 ml/min; Glucose 141 mg/dL (74-106); Magnesium 1.8 mg/dL (1.6-2.6); Potassium 3.7 mmol/L (3.5-5.1); Sodium Level 141 mmol/L (136-145)
[2022-11-17 23:17] VITALS: BP 116/68; PULSE 87; RESP 18; TEMP 36.6; O2SAT 96
[2022-11-18 02:20] LABS: Absolute Lymphocyte Count 2.35 X10^3/uL (0.83-4.51); Absolute Neutrophil Count 8.6 X10^3/uL (2.0-7.7); Basophil# 0.08 X10^3/uL; Basophil% 0.6 % (0-1); Eosinophil# 0.59 X10^3/uL; Eosinophils% 4.6 % (0-5); Hematocrit 31.5 % (40-54); Lymphocyte # 2.35 X10^3/ul (0.83-4.51); Lymphocyte % 18.4 % (19-41); Mean Corp Hgb Conc 31.7 g/dL (32-36); Mean Corpuscular Hgb 32.4 pg (27.0-32.0); Mean Corpuscular Volume 101.9 fL (80-94); Mean Platelet Vol. 9.3 fl (6.2-12.0); Monocyte# 1.08 X10^3/uL; Monocyte% 8.5 % (0-10); NRBC Flagged by Analyzer 0 % (0-5); Neutrophil # 8.56 X10^3/uL (2.7-7.7); Neutrophil % 67.1 % (47-70); Platelet Count 502 K/mm3 (150-450); RBC Distribution Width CV 13.3 % (11.6-14.6); RBC Distribution Width SD 49.9 fl (35.1-43.9); Red Blood Count 3.09 M/mm3 (4.6-6.2); White Blood Count 12.8 K/mm3 (4.4-11.0)
[2022-11-18 02:33] LABS: ALB/GLOB Ratio 0.8 RATIO (0.9-2.4); AST(SGOT) 26 U/L (15-37); Alanine Aminotransfer ALT/SGPT 32 U/L (16-61); Albumin, Serum 2.5 g/dL (3.2-5.0); Alkaline Phosphatase 91 U/L (45-117); Anion Gap 3 (5-15); BUN 7 mg/dL (7-18); BUN/Creat Ratio 11.1 RATIO (10-20); Calcium,Total 7.7 mg/dL (8.5-10.1); Chloride 112 mmol/L (98-107); Creatinine, Serum 0.63 mg/dL (0.70-1.30); EST Glomerular Filtration Rate 142 mL/min (>60); Est Glom Filt Rate - Afr Amer 172 mL/min (>60); Globulin 3.2 g/dL (2.2-4.2); Glucose 98 mg/dL (74-106); Magnesium 1.9 mg/dL (1.6-2.6); Phosphorus 3.9 mg/dL (2.5-4.9); Potassium 3.9 mmol/L (3.5-5.1); Protein, Total 5.7 g/dL (6.4-8.2); Sodium Level 139 mmol/L (136-145)
[2022-11-18 03:23] VITALS: BP 140/86; PULSE 84; RESP 18; TEMP 36.7; O2SAT 97
[2022-11-18 04:23] VITALS: BMI 30.8
[2022-11-18] MEDS: Lactated Ringers 1,000 ML 100 ML IV (05:37)
[2022-11-18] MEDS: Sucralfate 1 GM Tablet PO ×3 (05:37→22:52)
[2022-11-18 08:32] VITALS: BP 141/87; PULSE 93; RESP 16; TEMP 36.6; O2SAT 98
[2022-11-18] MEDS: Allopurinol 300 MG Tablet PO (08:40)
[2022-11-18] MEDS: Magnesium Chloride 64 MG Delay Rel.Tablet 128 MG PO ×2 (08:40→18:56)
[2022-11-18] MEDS: Finasteride 5 MG Tablet PO (08:40)
[2022-11-18] MEDS: Pantoprazole Sodium 40 MG Tablet PO ×2 (08:40→22:52)
[2022-11-18] MEDS: Calcium Carbonate 500 MG Tablet 1000 MG PO ×3 (08:43→17:36)
[2022-11-18 09:55] LABS: PTHIN 146.3 pg/mL (18.4-80.1)
--- NOTE | 2022-11-18 10:06 | CASEMGMT ---
CINDY SRIVASTAVA chart review: Patient was admitted 11/09-11/13/22 in the ICU for acute dehydration and septic shock. See RN CM assessment from 11/09. Patient returned 11/17/22 to [facility] ED after GI appt with abnormal labs. Patient was admitted for hypocalemia and hypomagnesemia. CINDY SRIVASTAVA in to discuss readmission with patient. Patient was to have follow-up with PCP on 11/17 at 1430 but returned to [facility] prior. Patient states he was taking medications as prescribed. Patient is independent in room. Patient denies needs at discharge. CM will continue to follow this patient and plan for a safe discharge.
--- NOTE | 2022-11-18 12:12 | PCM.PN.HOSP ---
Reason for Visit Reason for Visit: Diagnoses Hypomagnesemia (11/17/22) Hypocalcemia (11/17/22) Subjective Subjective Pain in feet as well as numbness and tingling significantly improved Objective Data Objective Data Vital Signs: Vital Signs Temp Pulse Resp BP Pulse Ox O2 Del Method 97.8 F 93 16 141/87 H 98 Room Air 11/18/22 08:32 11/18/22 08:32 11/18/22 08:32 11/18/22 08:32 11/18/22 08:32 11/18/22 08:35 Oxygen Delivery Method Room Air Weight: 94.7 kg Body Mass Index (BMI) 30.8 Intake & Output: Intake and Output for Last 24 Hours 11/16/22 11/17/22 11/18/22 23:59 23:59 23:59 Intake Total 236.67 / 536.67 1751.67 / 1751.67 Balance 236.67 / 536.67 1751.67 / 1751.67 Lab / Micro Data Result Diagrams: 11/18/22 01:47 11/18/22 01:47 Labs: Laboratory Results - last 24 hr 11/17/22 15:22: Magnesium 0.3 L* 11/17/22 19:37: PTH Intact 146.3 H 11/17/22 19:37: Sodium 141, Potassium 3.5, Chloride 111 H, Carbon Dioxide 27.0, Anion Gap 3 L, BUN 8, Creatinine 0.73, Estim Creat Clear Calc 117.03, Est GFR (MDRD) Af Amer 145, Est GFR (MDRD) Non-Af 120, BUN/Creatinine Ratio 11.0, Glucose 134 H, Calcium 6.9 L, Magnesium 1.2 L 11/17/22 21:56: Ur Random Sodium 181, Ur Random Calcium 9.6, Urine Creatinine 43.70, Urine Potassium 6.0, Urine Chloride 125, Urine Urea Nitrogen 238 11/17/22 22:45: Sodium 141, Potassium 3.7, Chloride 111 H, Carbon Dioxide 24.0, Anion Gap 6, BUN 8, Creatinine 0.66 L, Estim Creat Clear Calc 129.44, Est GFR (MDRD) Af Amer 162, Est GFR (MDRD) Non-Af 134, BUN/Creatinine Ratio 12.1, Glucose 141 H, Calcium 7.0 L, Magnesium 1.8 11/18/22 01:47: Sodium 139, Potassium 3.9, Chloride 112 H, Carbon Dioxide 24.0, Anion Gap 3 L, BUN 7, Creatinine 0.63 L, Estim Creat Clear Calc 135.60, Est GFR (MDRD) Af Amer 172, Est GFR (MDRD) Non-Af 142, BUN/Creatinine Ratio 11.1, Glucose 98, Calcium 7.7 L, Phosphorus 3.9, Magnesium 1.9, Total Bilirubin 0.10 L, AST 26, ALT 32, Alkaline Phosphatase 91, Total Protein 5.7 L, Albumin 2.5 L, Globulin 3.2, Albumin/Globulin Ratio 0.8 L 11/18/22 01:47: WBC 12.8 H, RBC 3.09 L, Hgb 10.0 L, Hct 31.5 L, MCV 101.9 H, MCH 32.4 H, MCHC 31.7 L, RDW Std Deviation 49.9 H, RDW Coeff of Oleksandr 13.3, Plt Count 502 H, MPV 9.3, Immature Gran % (Auto) 0.800, Neut % (Auto) 67.1, Lymph % (Auto) 18.4 L, [place] % (Auto) 8.5, Eos % (Auto) 4.6, Baso % (Auto) 0.6, Absolute Neuts (auto) 8.6 H, Absolute Lymphs (auto) 2.35, Nucleated RBC % 0 Physical Exam Narrative General: Alert, oriented, no apparent distress HEENT: Atraumatic, normocephalic, [place] sign negative Eyes: Anicteric, normal conjunctiva, extraocular movements grossly intact, no nystagmus on far lateral gaze Neck: Supple Respiratory: Clear to auscultation bilaterally, normal respiratory effort Cardiovascular: Regular rate and rhythm GI: Soft, nontender, nondistended Extremities: No edema Musculoskeletal: Moving all extremities Neuro: No overt focal neurological deficits Skin: No rashes appreciated Psych: Cooperative Assessment & Plan Assessment/Plan (1) Hypocalcemia syndrome: (2) Hypomagnesemia: PLAN: Plan #Hypocalcemia and hypomagnesemia -Symptomatic with tingling in hands and feet, [place] sign positive -Ca 6.1 despite being 7.4 several days ago (still low when corrected for alb) and magnesium 0.3mg -Pt reports taking his Ca and Mg supplements and that he has not been drinking, also denies any diarrhea in multiple days -Given his severity of renal injury with creatinine returning to normal could be post kidney injury diuresis causing magnesium wasting leading PTH resistance or deficiency, no s/s of pancreatitis and lipase not elevated -I's and O's, daily weights -Received 4 g of calcium and 4 g of magnesium in ED -Will start fluids -Slightly elevated white blood cell count however no signs or symptoms of infection, monitor closely -Will monitor on tele, EKG 92 HR, NSR -Trend BMP and mg -Check phos, vitamin d, pth -Urine Ca magnesium and urine creatinine -Suspect kidney as source of current electrolyte abnormalities, if unable to correct may need to consider discontinuing PPI though do not feel that would cause this profound change in this short period of time -11/18: Improving, suspect low calcium was due to his low magnesium which is likely being in screen in excess by his kidneys given his recent kidney injury with return of creatinine to normal. Magnesium improved but given his quick decline after improvement prior to discharge last time will have slow infusion of 8 g of magnesium over the next 24 hours and assess again tomorrow. It is possible that his sucralfate and Protonix are leading to decreased absorption but these are critical medications for him at this time so we will do our best to manage this. Continue oral supplementation in conjunction. If no improvement or further concerns will consult nephrology tomorrow #History of upper GI bleed -During his last admission earlier this month had EGD that showed erosive esophagitis and oozing gastric ulcers with visible vessel -Is on PPI 40 mg twice daily and sucralfate -Hemoglobin stable #Tobacco use -Nicotine patch -Advised cessation #hx gout -Reports hx #Hx of alcohol use disorder- in remission -Continue to encourage cessation #DVT ppx: SCDs given recent GI bleed Justa Davidson MD Time spent in the patient's overall evaluation,decision-making process, review of diagnostic data, adjustment of management, discussion with other providers, nursing nursing and ancillary staff involved in patient's care documentation, 30 minutes Charges/Coding Visit Charges Inpatient E&M: 01106 Subs Hosp L2
[2022-11-18] MEDS: Magnesium Sulfate 4gm/100mL 4 GM/100 ML IV.SOLN. IV (15:05)
[2022-11-18 15:07] VITALS: BP 120/77; PULSE 86; RESP 16; TEMP 36.6; O2SAT 94
[2022-11-18] MEDS: Tamsulosin HCl 0.4 MG Capsule PO (17:36)
[2022-11-18 22:50] VITALS: BP 127/70; PULSE 88; RESP 18; TEMP 36.7; O2SAT 97
[2022-11-19] MEDS: Magnesium Sulfate 4gm/100mL 4 GM/100 ML IV.SOLN. IV ×2 (01:05→11:05)
[2022-11-19 05:09] LABS: Absolute Lymphocyte Count 1.97 X10^3/uL (0.83-4.51); Absolute Neutrophil Count 7.4 X10^3/uL (2.0-7.7); Basophil# 0.07 X10^3/uL; Basophil% 0.6 % (0-1); Eosinophil# 0.61 X10^3/uL; Eosinophils% 5.5 % (0-5); Hemoglobin 10.4 g/dL (13.0-16.5); Lymphocyte # 1.97 X10^3/ul (0.83-4.51); Lymphocyte % 17.8 % (19-41); Mean Corp Hgb Conc 32.5 g/dL (32-36); Mean Corpuscular Hgb 33.5 pg (27.0-32.0); Mean Corpuscular Volume 103.2 fL (80-94); Mean Platelet Vol. 9.3 fl (6.2-12.0); Monocyte# 0.91 X10^3/uL; Monocyte% 8.2 % (0-10); NRBC Flagged by Analyzer 0 % (0-5); Neutrophil # 7.43 X10^3/uL (2.7-7.7); Neutrophil % 67.4 % (47-70); Platelet Count 487 K/mm3 (150-450); RBC Distribution Width CV 13.4 % (11.6-14.6); RBC Distribution Width SD 50.6 fl (35.1-43.9); White Blood Count 11.1 K/mm3 (4.4-11.0)
[2022-11-19 05:23] VITALS: BP 127/72; PULSE 88; RESP 18; TEMP 36.6; O2SAT 98
[2022-11-19] MEDS: Sucralfate 1 GM Tablet PO ×2 (05:25→12:11)
[2022-11-19 05:46] LABS: ALB/GLOB Ratio 0.8 RATIO (0.9-2.4); AST(SGOT) 21 U/L (15-37); Alanine Aminotransfer ALT/SGPT 29 U/L (16-61); Albumin, Serum 2.7 g/dL (3.2-5.0); Alkaline Phosphatase 102 U/L (45-117); Anion Gap 1 (5-15); BUN 11 mg/dL (7-18); BUN/Creat Ratio 16.6 RATIO (10-20); Calcium,Total 7.7 mg/dL (8.5-10.1); Chloride 112 mmol/L (98-107); Creatinine, Serum 0.66 mg/dL (0.70-1.30); EST Glomerular Filtration Rate 134 mL/min (>60); Est Glom Filt Rate - Afr Amer 162 mL/min (>60); Estimated Creatinine Clearance 129.44 ml/min; Globulin 3.3 g/dL (2.2-4.2); Glucose 91 mg/dL (74-106); Potassium 4.5 mmol/L (3.5-5.1); Sodium Level 139 mmol/L (136-145)
[2022-11-19 07:06] LABS: Magnesium 1.8 mg/dL (1.6-2.6)
[2022-11-19] MEDS: Magnesium Chloride 64 MG Delay Rel.Tablet 128 MG PO (08:53)
[2022-11-19] MEDS: Calcium Carbonate 500 MG Tablet 1000 MG PO ×2 (08:53→12:10)
[2022-11-19] MEDS: Pantoprazole Sodium 40 MG Tablet PO (08:53)
[2022-11-19] MEDS: Finasteride 5 MG Tablet PO (08:53)
[2022-11-19] MEDS: Allopurinol 300 MG Tablet PO (08:54)
[2022-11-19] MEDS: 0.9% Saline Lock 10 ML Syringe IV (08:55)
[2022-11-19 09:00] VITALS: BMI 30.8
--- NOTE | 2022-11-19 10:57 | CASEMGMT ---
RN CM note: Per Dr Davidson, pt to be discharged today. RN CM to room. Introduced self and role. Pt denies having any discharge needs or concerns. Lucien BSN RN CM
[2022-11-19 11:23] VITALS: BP 135/82; PULSE 86; RESP 16; TEMP 36.7; O2SAT 99
--- NOTE | 2022-11-19 12:53 | DS.PCM_ITS ---
Providers Date of Admission: 11/17/22 Date of Discharge: 11/19/22 Primary Care Physician: Dr. Zia Osman MD Reason For Visit: HYPOCALCEIA SYMPTOMATICE, HYPOMAGNESIMIA Diagnosis Discharge Diagnosis (1) Hypocalcemia syndrome: Status: Acute Code(s): E83.51 - Hypocalcemia (2) Hypomagnesemia: Status: Acute Code(s): E83.42 - Hypomagnesemia Plan #Hypocalcemia and hypomagnesemia #History of upper GI bleed #Tobacco use #hx gout #Hx of alcohol use disorder- in remission - Medications at Discharge Home Medications finasteride 5 mg tablet 5 mg PO DAILY #30 tabs 06/20/17 tamsulosin 0.4 mg capsule 0.4 mg PO DAILY@1730 PROSTATE 06/29/17 vitamin B12 500 mcg-folic acid 400 mcg tablet 1 tab PO QDAY supplement 01/04/18 pantoprazole 40 mg tablet,delayed release 40 mg PO BID #60 tabs 11/13/22 sucralfate 1 gram tablet 1 g PO Q6H #120 tabs 11/13/22 allopurinol 300 mg tablet 300 ea PO DAILY gout 11/17/22 amlodipine 10 mg tablet 10 mg PO DAILY BP 11/17/22 calcium citrate 200 mg (950 mg) tablet 400 mg PO BID 30 days #120 tabs 11/19/22 magnesium oxide 400 mg (241.3 mg magnesium) tablet 800 mg PO BIDCM SUPPLEMENT 30 days #120 tabs 11/19/22 Hospital Course Summary of Care Provided Minutes Spent on Discharge: 32 Hospital Course: ELIE GAMEZ, is a 52 M with a history of gout, alcohol use disorder in early remission, GI bleed status post cauterization, BPH who presented to [facility] 11/17/22 due to lab abnormalities.? He was recently admitted to the hospital for septic shock and had acute kidney failure as well as upper GI bleed bleed and EGD showed erosive esophagitis and oozing gastric ulcer with visible vessel.? He was seen the day of presentation at his gastroenterology office follow-up and had labs ordered, he was found to have a calcium of 6.1 and was sent to the emergency department.? In the ED he had a magnesium checked which was 0.3 and he was found to be symptomatic with his hypocalcemia, hospi talist consulted for admission.? Calcium IV and magnesium IV supplementation given. Next morning patient completely asymptomatic and did have improvement in magnesium and calcium levels. Spoke with nephrology regarding magnesium and they recommended slow infusion over 24 hours and rechecking as high doses and short time may lead to only transient increase. He was given slow infusion of magnesium as well as oral calcium and magnesium supplementation. He had no further symptoms and is feeling well and wanted to be discharged home with outpatient follow-up and lab work. On day of discharge calcium 7.7 and magnesium 1.8. Sent prescription for calcium citrate as this may be better absorbed given his PPI and he was also discharged on magnesium oxide 400 mg 4 times daily with instructions to not take at the same time as his Protonix to try to help improve absorption. Patient had no complaints. Given lack of GI symptoms suspect that the magnesium may have been renally excreted, had recently had kidney failure with a creatinine of 10 and is back down to 0.63 which may contribute in addition to poor absorption due to requiring PPI twice daily secondary to recent GI bleed. Discharge instructions as followed: -Your magnesium supplementation has changed to 400 mg 4 times daily (this was changed from printed discharge instructions but verbally instructed the patient and written on his discharge medication neck with nurse present), it is advised that you do not take this at the same time as your pantoprazole -Calcium citrate has also been sent to your preferred pharmacy on file as calcium citrate may be easier to absorb given that you are on pantoprazole.? If this is too expensive you can take an equivalent alternate calcium supplement [id number] -Would recommend lab work (CMP and magnesium) to check your kidneys, calcium, and magnesium in 2 to 3 days through your primary care physician's office or Dr. Briscoe's office.? Please call on the day of discharge to obtain an order for lab work, would recommend having this done on Wednesday at the latest. -You will need to follow-up with Dr. Briscoe with GI in his office upon discharge.? Please call his office to schedule your hospital follow-up appointment (ph. [phone]) -Please call your primary care provider's office upon discharge to schedule a hospital follow up within 1 week. -For any concerning signs or symptoms please call 911 or proceed to the nearest emergency department Physical Exam Narrative General: Alert, oriented, no apparent distress HEENT: Atraumatic, normocephalic Eyes: Anicteric, normal conjunctiva, extraocular movements grossly intact Neck: Supple Respiratory: Clear to auscultation bilaterally, normal respiratory effort Cardiovascular: Regular rate and rhythm GI: Soft, nontender, nondistended Extremities: No edema Musculoskeletal: Moving all extremities Neuro: No overt focal neurological deficits Skin: No rashes appreciated Psych: Cooperative Weight / BMI Weight Weight: 94.7 kg Body Mass Index (BMI) 30.8 ABG / Lab / Microbiology Data Result Diagrams: 11/19/22 03:58 11/19/22 03:58 Laboratory: Laboratory Results - last 24 hr 11/19/22 03:58: WBC 11.1 H, RBC 3.10 L, Hgb 10.4 L, Hct 32.0 L, MCV 103.2 H, MCH 33.5 H, MCHC 32.5, RDW Std Deviation 50.6 H, RDW Coeff of Oleksandr 13.4, Plt Count 487 H, MPV 9.3, Immature Gran % (Auto) 0.500, Neut % (Auto) 67.4, Lymph % (Auto) 17.8 L, [place] % (Auto) 8.2, Eos % (Auto) 5.5 H, Baso % (Auto) 0.6, Absolute Neuts (auto) 7.4, Absolute Lymphs (auto) 1.97, Nucleated RBC % 0 11/19/22 03:58: Sodium 139, Potassium 4.5, Chloride 112 H, Carbon Dioxide 26.0, Anion Gap 1 L, BUN 11, Creatinine 0.66 L, Estim Creat Clear Calc 129.44, Est GFR (MDRD) Af Amer 162, Est GFR (MDRD) Non-Af 134, BUN/Creatinine Ratio 16.6, Glucose 91, Calcium 7.7 L, Total Bilirubin 0.20, AST 21, ALT 29, Alkaline Phosphatase 102, Total Protein 6.0 L, Albumin 2.7 L, Globulin 3.3, Albumin/Globulin Ratio 0.8 L 11/19/22 03:58: Magnesium 1.8 D/C Instructions Discharge Diet: No restrictions Meaningful Use Info Meaningful Use Diagnoses (Choose all that apply): None applicable Discharge Plan Admission Admit Date/Time: 11/17/22 16:41 Primary Reason for Your Visit: Abnormal lab values Attending Provider: Justa Davidson Primary Care Provider: Zia Osman Instructions Patient Instructions: Hypomagnesemia Dc Additional Instructions / Restrictions: DISCHARGE INSTRUCTIONS PLEASE READ *Please take this with you to your next doctors appointment* -Your magnesium supplementation has been increased to 800 mg twice daily, it is advised that you do not take this at the same time as your pantoprazole -Calcium citrate has also been sent to your preferred pharmacy on file as calcium citrate may be easier to absorb given that you are on pantoprazole. If this is too expensive you can take an equivalent alternate calcium supplement [id number] -Would recommend lab work (CMP and magnesium) to check your kidneys, calcium, and magnesium in 2 to 3 days through your primary care physician's office or Dr. Briscoe's office. Please call on the day of discharge to obtain an order for lab work, would recommend having this done on Wednesday at the latest. -You will need to follow-up with Dr. Briscoe with GI in his office upon discharge. Please call his office to schedule your hospital follow-up appointment (ph. [phone]) -Please call your primary care provider's office upon discharge to schedule a hospital follow up within 1 week. -For any concerning signs or symptoms please call 911 or proceed to the nearest emergency department Discharge Orders/Prescriptions Prescriptions: New calcium citrate 200 mg (950 mg) tablet 400 mg PO BID 30 Days Qty: 120 0RF Continued vitamin B12 500 mcg-folic acid 400 mcg tablet 500-400 mcg tablet 1 tab PO QDAY allopurinol 300 mg tablet 300 ea PO DAILY Label Comments: TAKE 1 TABLET BY MOUTH DAILY finasteride 5 MG tablet 5 mg PO DAILY Qty: 30 0RF tamsulosin 0.4 MG capsule 0.4 mg PO DAILY@1730 pantoprazole 40 mg tablet,delayed release (DR/EC) 40 mg PO BID Qty: 60 2RF sucralfate 1 gram tablet 1 g PO Q6H Qty: 120 1RF amlodipine 10 mg tablet 10 mg PO DAILY Changed magnesium oxide 400 MG tablet 800 mg PO BIDCM 30 Days Qty: 120 0RF Referrals / Follow Up: Zai Osman MD [Primary Care Provider] - Within 1 Week Gino Briscoe DO [Med Staff - Active Staff] - Within 1 Week (You will need to follow-up with Dr. Briscoe with GI in his office upon discharge. Please call his office to schedule your hospital follow-up appointment (ph. [phone])) Disposition Disposition (needs filled in before D/C Order can be placed): Home, Self Care Charges/Coding Visit Charges Inpatient E&M: 23681 Disch Hosp >30min
[2022-11-19 14:00] VITALS: BP 140/85; PULSE 90; RESP 16; TEMP 36.7; O2SAT 100
[2022-11-20 15:24] LABS: Vitamin D 1,25-Dihydroxy 41.6 pg/mL (24.8-81.5)
== END 2022-11-19 14:19 | disposition home or self-care (01) | DRG 425 ==
LOC: ED 16:32 → PCU 11-18 08:42 → ED 11-18 09:59 → PCU 11-19 12:25
PROVIDERS: Nurse Practitioner; Admitting Provider Internal Medicine; Emergency Provider Emergency Medicine; PCP Family Medicine; Visit Provider Internal Medicine
DX: E83.51 Hypocalcemia (principal); F10.21 Alcohol dependence, in remission; D64.9 Anemia, unspecified; E83.42 Hypomagnesemia; K21.00 Gastro-esophageal reflux disease with esophagitis, without bleeding; M10.9 Gout, unspecified; F17.210 Nicotine dependence, cigarettes, uncomplicated; I10 Essential (primary) hypertension; E87.6 Hypokalemia; Z79.899 Other long term (current) drug therapy; K21.9 Gastro-esophageal reflux disease without esophagitis; R00.0 Tachycardia, unspecified; R94.31 Abnormal electrocardiogram [ECG] [EKG]
CPT/HCPCS: 80048; J0612; 36415; 80053; 80074; 82150; 82330; 82340; 82436; 82570; 82652; 82784; 82785; 83615; 83690; 83735; 83970; 84100; 84133; 84165; 84300; 84540; 84550; 85025; 85652; 86140; 86225; 86235; 86256; 86334; 86480; 93005; 94668; 96361; 96365; 96366; 96368; 97802; 99221; 99283; J7120; A4216; G0378

== ENCOUNTER → 2022-11-17 | Outpatient (CLI) | payer MEDICAID, SELFPAY ==
[2022-11-17 11:10] LABS: Erythrocyte Sedimentation Rate 25 mm/hr (0-20)
[2022-11-17 11:13] LABS: Absolute Lymphocyte Count 2.46 X10^3/uL (0.83-4.51); Absolute Neutrophil Count 8.9 X10^3/uL (2.0-7.7); Basophil# 0.09 X10^3/uL; Basophil% 0.7 % (0-1); Eosinophil# 0.65 X10^3/uL; Eosinophils% 4.9 % (0-5); Hemoglobin 10.7 g/dL (13.0-16.5); Lymphocyte # 2.46 X10^3/ul (0.83-4.51); Lymphocyte % 18.6 % (19-41); Mean Corp Hgb Conc 31.5 g/dL (32-36); Mean Corpuscular Hgb 32.3 pg (27.0-32.0); Mean Corpuscular Volume 102.7 fL (80-94); Mean Platelet Vol. 9.3 fl (6.2-12.0); Monocyte# 0.98 X10^3/uL; Monocyte% 7.4 % (0-10); NRBC Flagged by Analyzer 0 % (0-5); Neutrophil % 67.3 % (47-70); Platelet Count 538 K/mm3 (150-450); RBC Distribution Width CV 13.3 % (11.6-14.6); RBC Distribution Width SD 50.6 fl (35.1-43.9); Red Blood Count 3.31 M/mm3 (4.6-6.2); White Blood Count 13.2 K/mm3 (4.4-11.0)
[2022-11-17 11:47] LABS: ALB/GLOB Ratio 0.9 RATIO (0.9-2.4); AST(SGOT) 25 U/L (15-37); Alanine Aminotransfer ALT/SGPT 35 U/L (16-61); Alkaline Phosphatase 91 U/L (45-117); Amylase 162 U/L (25-115); Anion Gap 7 (5-15); BUN 8 mg/dL (7-18); BUN/Creat Ratio 11.6 RATIO (10-20); CRP 4.92 mg/L (0.0-3.0); Calcium,Total 6.1 mg/dL (8.5-10.1); Chloride 105 mmol/L (98-107); Creatinine, Serum 0.69 mg/dL (0.70-1.30); EST Glomerular Filtration Rate 128 mL/min (>60); Est Glom Filt Rate - Afr Amer 154 mL/min (>60); Globulin 3.5 g/dL (2.2-4.2); Glucose 97 mg/dL (74-106); LDH 276 U/L (87-241); Lipase 104 U/L (13-75); Potassium 3.6 mmol/L (3.5-5.1); Protein, Total 6.5 g/dL (6.4-8.2); Sodium Level 139 mmol/L (136-145); Uric Acid 3.4 mg/dL (3.5-7.2)
[2022-11-18 14:09] LABS: Anti-Centromere B Ab <0.2 AI (0.0-0.9); Anti-Chromatin <0.2 AI (0.0-0.9); Anti-Jo <0.2 AI (0.0-0.9); Anti-Scleroderma-70 AB <0.2 AI (0.0-0.9); RNP Ab <0.2 AI (0.0-0.9); SJOGREN'S Anti-SS-A test < 0.2 AI (0.0-0.9); SJOGREN'S Anti-SS-B test < 0.2 AI (0.0-0.9); Smith Ab <0.2 AI (0.0-0.9)
[2022-11-18 18:30] LABS: Anti-dsDNA Ab <1 IU/mL (0-9)
[2022-11-20 12:09] LABS: Albumin 3.2 g/dL (2.9-4.4); Alpha-1-Globulins 0.3 g/dL (0.0-0.4); Alpha-2-Globulins 0.8 g/dL (0.4-1.0); Cytoplasmic Ab (C-ANCA) <1:20 titer (Neg:<1:20); Gamma Globulin 0.5 g/dL (0.4-1.8); HEPATITIS B SURFACE AG Negative (Negative); Hep C Antibodies Non Reactive (Non Reactive); Hepatitis A IgM Antibody Negative (Negative); Hepatitis B Core AB IgM Negative (Negative); Immunoglobulin A 223 mg/dL (90-386); Immunoglobulin E 117 IU/mL (6-495); Immunoglobulin G 535 mg/dL (603-1613); Immunoglobulin M 52 mg/dL (20-172); PROEL- TOTAL PROTEIN 5.7 g/dL (6.0-8.5); QNTFERON TB Mitogen Value > 10.00 IU/mL (.); QNTFERON TB Nil Value 0.02 IU/mL (.); QNTFERON TB1+ Ag Value 0.01 IU/mL (.); QNTFERON TB2+ Ag Value 0 IU/mL (.)
[2022-11-20 15:24] LABS: Perinuclear Ab (P-ANCA) <1:20 titer (Neg:<1:20)
[2022-11-20 15:25] LABS: QNTIFERON TB Positive Criteria Negative (Negative)
== END | disposition home or self-care (01) ==
PROVIDERS: PCP Family Medicine; Referring Provider Internal Medicine Gastroenterology; Visit Provider Internal Medicine Gastroenterology
DX: K50.90 Crohn's disease, unspecified, without complications (principal); R19.7 Diarrhea, unspecified; R74.8 Abnormal levels of other serum enzymes; K92.2 Gastrointestinal hemorrhage, unspecified
CPT/HCPCS: 80074; 82784 ×3; 84165; 86235 ×5; 86334; 85025; 86140; 86256 ×3; 86225; 82150; 82785; 84550; 80053; 36415; 86480; 83690; 83615; 85652

== ENCOUNTER → 2022-11-23 | Outpatient (CLI) | payer MEDICAID, SELFPAY ==
[2022-11-30 00:07] LABS: Calprotectin, Stool 44 ug/g (0-120)
[2022-12-04 16:09] LABS: Pancreatic Elastase, Fecal 397 (>200)
== END | disposition home or self-care (01) ==
LOC: LABSPEC 15:55
PROVIDERS: PCP Family Medicine; Referring Provider Internal Medicine Gastroenterology; Visit Provider Internal Medicine Gastroenterology
DX: K50.90 Crohn's disease, unspecified, without complications (principal); R19.7 Diarrhea, unspecified; R74.8 Abnormal levels of other serum enzymes; K92.2 Gastrointestinal hemorrhage, unspecified
CPT/HCPCS: 82653; 83630; 83993

== ENCOUNTER → 2022-11-24 | Outpatient (CLI) | payer MEDICAID, SELFPAY ==
[2022-11-24 15:13] LABS: Hematocrit 33.4 % (40-54); Hemoglobin 10.7 g/dL (13.0-16.5); Mean Corpuscular Volume 103.1 fL (80-94); Mean Platelet Vol. 9.2 fl (6.2-12.0); Platelet Count 637 K/mm3 (150-450); RBC Distribution Width CV 13.3 % (11.6-14.6); RBC Distribution Width SD 50.6 fl (35.1-43.9); Red Blood Count 3.24 M/mm3 (4.6-6.2); White Blood Count 8.2 K/mm3 (4.4-11.0)
[2022-11-24 16:14] LABS: AST(SGOT) 18 U/L (15-37); Alanine Aminotransfer ALT/SGPT 23 U/L (16-61); Albumin, Serum 3.4 g/dL (3.2-5.0); Alkaline Phosphatase 102 U/L (45-117); Anion Gap 4 (5-15); BUN 13 mg/dL (7-18); BUN/Creat Ratio 17.5 RATIO (10-20); Calcium,Total 8.8 mg/dL (8.5-10.1); Chloride 107 mmol/L (98-107); Creatinine, Serum 0.74 mg/dL (0.70-1.30); EST Glomerular Filtration Rate 117 mL/min (>60); Est Glom Filt Rate - Afr Amer 142 mL/min (>60); Globulin 3.3 g/dL (2.2-4.2); Glucose 82 mg/dL (74-106); Magnesium 1.2 mg/dL (1.6-2.6); Potassium 4.2 mmol/L (3.5-5.1); Protein, Total 6.7 g/dL (6.4-8.2); Sodium Level 136 mmol/L (136-145)
== END | disposition home or self-care (01) ==
LOC: MFPLAB 11:54
PROVIDERS: PCP Family Medicine; Visit Provider Nurse Practitioner Family
DX: K92.2 Gastrointestinal hemorrhage, unspecified (principal); E83.42 Hypomagnesemia
CPT/HCPCS: 36415; 80053; 83735; 85027

== ENCOUNTER 2025-03-17 10:45 | Inpatient (IN) | payer MEDICAID, SELFPAY ==
[2025-03-17] VITALS (17 sets, daily range): BP systolic 121–166; BP diastolic 73–113; PULSE 72–110; RESP 16–43; TEMP 36.4–37.6; O2SAT 97–100; BMI 22.4; BMI 22.7
--- NOTE | 2025-03-17 10:59 | EKG12_ITS ---
Test Reason : WEAKNESS Blood Pressure : */* mmHG Vent. Rate : 104 BPM Atrial Rate : 104 BPM P-R Int : 138 ms QRS Dur : 88 ms QT Int : 422 ms P-R-T Axes : 78 -44 77 degrees QTcB Int : 554 ms Critical Test Result: Long QTc Sinus tachycardia Left axis deviation Possible Inferior infarct (cited on or before 17-Nov-2022) Prolonged QT Abnormal ECG Confirmed by SKYLER HARDIN MD ([id number]), editor & co founder ZORAIDA RUSSELL ([id number]) on 03/19/2025 1:12:39 PM Referred By: Adia Gutiérrez Confirmed By: SKYLER HARDIN MD
--- NOTE | 2025-03-17 10:59 | CT_ITS ---
PROCEDURE: ABDOMEN/PELVIS WITH CONTRAST 03/17/2025 REASON FOR EXAM: ABDOMINAL PAIN, NAUSEA, VOMITING TECHNIQUE: ABDOMEN/PELVIS WITH CONTRAST Coronal and Sagittal reconstruction series were provided. CONTRAST: Isovue 370 VOLUME: 9 9 mL One or more dose reduction techniques were used (e.g., Automated exposure control, adjustment of the mA and/or kV according to patient size, use of iterative reconstruction technique. RADIATION DOSE SUMMARY: CTDlvol: 14.27 mGy DLP: 1878.71 mGycm COMPARISON: None. FINDINGS: Lung bases: Clear. Liver: Unremarkable. Gallbladder: Unremarkable. No biliary dilation. Spleen: Unremarkable. Pancreas: Unremarkable. Adrenals: Unremarkable. Kidneys: Two simple cyst at the lower pole of the left kidney measuring up to 1 cm. No hydronephrosis. No nephrolithiasis. Bladder: Unremarkable. Reproductive Organs: Unremarkable. Bowel: The stomach is distended. A 2.5 cm ingested linear body in the stomach. No bowel obstruction. No bowel wall thickening. Appendix: Normal Lymph nodes: No lymphadenopathy. Vasculature: Atherosclerotic calcifications of the aorta and iliac arteries. Peritoneum / Retroperitoneum: No free air or free fluid. Bones: No acute bony abnormalities. CT/Abdomen/Pelvis WITH Contrast IMPRESSION: No acute abdominopelvic abnormalities. Reading Location: [facility]
--- NOTE | 2025-03-17 10:59 | RAD_ITS ---
PROCEDURE: CHEST PA AND LATERAL 03/17/2025 REASON FOR EXAM: WEAKNESS TECHNIQUE: CHEST PA AND LATERAL COMPARISON: November 09, 2022 FINDINGS: Hardware: EKG leads Heart: Normal Mediastinum: Normal Lungs: Clear Bones: Minimal degenerative change. RAD/Chest PA and Lateral IMPRESSION: No acute cardiopulmonary process Reading Location: [id number]
--- NOTE | 2025-03-17 11:12 | EDS_ITS ---
HPI History of Present Illness Chief Complaint: Weakness Narrative Narrative: Patient is a 54-year-old male presenting to the emergency department for generalized weakness. Patient has an extensive past medical history as below including alcohol use, serotonin syndrome, hypertension, hypomagnesia, bleeding peptic ulcers. Patient states that last night he started to feel unwell. States that he feels weak all over and has had nausea with numerous episodes of nonbloody, nonbilious vomiting. He denies fever, chills, chest pain, shortness of breath, abdominal pain, diarrhea, dysuria or hematuria. Denies recent falls. Denies focal numbness or weakness. [facility] Medical History Abnormal endoscopy of upper gastrointestinal tract Loss of hearing Loose, teeth Alcohol use Marijuana use Gout Rheumatoid arthritis Arthritis Back pain Seizures History of IBS Heartburn History of edema Elevated liver enzymes Crohn's disease Abnormal CT scan Alcoholism Falls Perianal abscess Serotonin syndrome Urinary retention due to benign prostatic hyperplasia Acute encephalopathy Alcohol abuse, daily use Depression Serotonin syndrome Smoker GERD (gastroesophageal reflux disease) HTN (hypertension) Home Medications ?Medication ?Instructions ?Recorded ?Last Taken ?Type finasteride 5 mg tablet 5 mg PO DAILY #30 tabs 06/2011/17/22 Rx tamsulosin 0.4 mg capsule 0.4 mg PO DAILY@1730 PROSTAT E 06/29/17 11/17/22 History vitamin B12 500 mcg-folic acid 400 1 tab PO QDAY suppl ement 01/04/18 11/17/22 History mcg tablet allopurinol 300 mg tablet 300 ea PO DAILY gout 3 11/17/22 History amlodipine 10 mg tablet 10 mg PO DAILY BP 11/17/22 0 11/17/22 History calcium citrate 400 mg (2 x 200 mg (950 mg)) PO 11/19/22 Unknown Rx BID 30 days #120 tabs magnesium oxide 400 mg (241.3 mg 800 mg (2 x 400 mg (2 41.3 mg 11/19/22 Unknown Rx magnesium) tablet magnesium)) PO BIDCM SUPPLEM ENT 30 days #120 tabs omeprazole 20 mg capsule,delayed 20 mg PO DAILY Unknown History release Allergy/AdvReac Type Severity Reaction Status Date / Time Penicillins Allergy Unknown Verified 03/17/25 10:50 fluoxetine (From Prozac) AdvReac Other Verified 03/17/25 10:50 Family History Sister Diabetes Heart disease Mother CAD (coronary artery disease) Surgical History S/P right knee arthroscopy S/P tonsillectomy Social History Smoking Status: Current every day smoker tobacco type: cigarettes alcohol intake: current alcohol intake frequency: holidays/special occasions only ROS ROS ED ROS Narrative See HPI EXAM Physical Exam Narrative Exam Narrative: Vital signs: Reviewed General: Alert and oriented. Chronically unwell appearing, disheveled HEENT: Head is normocephalic and atraumatic, sinuses nontender, pupils equal round and reactive. Nares are patent. Oropharynx and throat exams normal. Dry mucous membranes Neck: Supple without lymphadenopathy nontender Cardiovascular: Tachycardia, regular rhythm, no murmurs. No rubs or gallops. Normal S1 and S2 Respiratory: Clear to auscultation bilaterally. No wheezes, rales, rhonchi Abdominal: Soft with generalized abdominal tenderness to palpation. Normal bowel sounds. No guarding or rebound. Extremities: No tenderness. No bruising. Normal range of motion. Normal sensation. Skin: No rash or redness. Neurological: Cranial nerves II through XII are grossly intact. Normal strength and sensation. Normal cerebellar function The rest of the physical exam is unremarkable Const Vital Signs: 03/17/25 10:46 03/17/25 10:46 03/17/25 11:49 Temperature 97.6 F L 98.8 F Temperature Source Oral Oral Pulse Rate 110 H 107 H Respiratory Rate 28 H 34 H Respiratory Effort Normal Non-Labored Respiratory Pattern Tachypnea Blood Pressure 140/113 H 166/108 H Blood Pressure Mean 122 127 Pulse Ox 100 100 Oxygen Delivery Method Room Air Room Air 03/17/25 11:56 03/17/25 12:00 03/17/25 12:15 Temperature Temperature Source Pulse Rate 101 H 98 Respiratory Rate 31 H 29 H Respiratory Effort Respiratory Pattern Blood Pressure 148/102 H 166/108 H Blood Pressure Mean 116 125 Pulse Ox 97 97 Oxygen Delivery Method 03/17/25 12:30 03/17/25 12:30 03/17/25 12:45 Temperature Temperature Source Pulse Rate 81 Respiratory Rate 27 H Respiratory Effort Respiratory Pattern Blood Pressure 154/98 H 154/98 H 121/73 H Blood Pressure Mean 115 115 88 Pulse Ox 99 Oxygen Delivery Method 03/17/25 12:53 03/17/25 13:00 03/17/25 13:15 Temperature Temperature Source Pulse Rate 105 H 105 H Respiratory Rate 36 H 27 H Respiratory Effort Respiratory Pattern Blood Pressure 151/103 H 137/96 H Blood Pressure Mean 113 109 Pulse Ox 98 Oxygen Delivery Method 03/17/25 13:30 Temperature Temperature Source Pulse Rate Respiratory Rate Respiratory Effort Respiratory Pattern Blood Pressure 142/89 H Blood Pressure Mean 105 Pulse Ox Oxygen Delivery Method Sepsis Attestation Sepsis Alert: Yes Sepsis Attestation: Agree w/Sepsis Possible Source of Sepsis: Unknown Sepsis Organ Dysfunction Criteria Present: Lactic Acid > 2 mmol/L MDM MDM MDM Narrative Medical decision making narrative: Patient is a 54-year-old male presenting to the emergency department for generalized weakness. Patient was seen and examined. He arrives tachycardic, mildly tachypneic and mildly hypertensive. He is disheveled and unwell appearing in bed. EKG shows sinus tachycardia at a rate of 104 with left axis deviation. Prolonged QTc of 554. There is no significant ST elevation or depression noted. With initial vitals concern for possible sepsis. Differential also includes ACS, pneumonia, intra-abdominal pathology including diverticulitis, cirrhosis, obstruction, UTI, electrolyte abnormalities. No focal neurologic deficits on exam to suspect stroke. Fluid bolus started for tachycardia. Will hold off on antiemetics at this time given prolonged QTC. Suspect possible hypomag as the cause of this. CBC with a leukocytosis of 23.1 and hemoglobin of 19.9. There does appear to be significant hemoconcentration. Lactate of 6.6. Blood cultures were obtained. Patient was started on vancomycin and Zosyn for broad coverage of possible sepsis. CMP with hypokalemia of 2.5. Hypomagnesia of 0.5. These were repleted IV. Suspect these are low due to his vomiting as well as his alcohol abuse history and poor PO intake over the past few days. CT brain shows no acute intracranial abnormalities. Chest x-ray with no acute radiographic abnormalities. CT abdomen pelvis negative as well. Troponin downtrending, initial of 160 suspect type 2 NSTEMI secondary to sepsis. Discussed admission with patient and family at bedside. They are agreeable. Patient admitted to hospitalist Dr. Munoz for further management of his possible sepsis and electrolyte derangements. History & Record Review Discussion w/independent historian: Patient and Family Additional record(s) reviewed:: Prior inpatient record and Prior ED visit Lab Data Attestation: I reviewed the patient's lab results. Labs: Laboratory Results - last 24 hr 03/17/25 03/17/25 11:12 13:27 WBC 23.1 H RBC 5.99 Hgb 19.9 H* Hct 56.0 H MCV 93.5 MCH 33.2 H MCHC 35.5 RDW Std Deviation 45.1 H RDW Coeff of Oleksandr 13.2 Plt Count 529 H MPV 9.5 Immature Gran % (Auto) 0.700 Neut % (Auto) 90.0 H Lymph % (Auto) 3.5 L [place] % (Auto) 5.6 Eos % (Auto) 0.0 Baso % (Auto) 0.2 Absolute Neuts (auto) 20.8 H Absolute Lymphs (auto) 0.81 L Nucleated RBC % 0 Platelet Estimate MOD INC Sodium 140 Potassium 2.5 L* Chloride 84 L Carbon Dioxide 21.7 Anion Gap 35 H BUN 24 H Creatinine 2.91 H Estim Creat Clear Calc 28.03 L Est GFR (MDRD) Non-Af 25 L BUN/Creatinine Ratio 8.2 L Glucose 226 H Lactic Acid 6.6 H* Calcium 9.5 Magnesium 0.5 L* Total Bilirubin 0.93 AST 66 H ALT 31 Alkaline Phosphatase 115 Troponin T High Sens 160 H* Total Protein 9.4 H Albumin 5.8 H Globulin 3.6 Albumin/Globulin Ratio 1.6 Lipase 34 Urine Color Yellow Urine Clarity Sl. Cloudy Urine pH 6.5 Ur Specific [place] 1.015 Urine Protein 500 H Urine Glucose (UA) Normal Urine Ketones 15 H Urine Occult Blood 250 H Urine Nitrite Negative Urine Bilirubin Negative Urine Urobilinogen Normal Ur Leukocyte Esterase 25 H Urine RBC 10-25 SEEN Urine WBC 5-10 SEEN Ur Squamous Epith Cells 0 SEEN Ur Renal Epithelial Cell 0-5 SEEN Urine Bacteria 0 SEEN Hyaline Casts 0-5 SEEN Fine Granular Casts 0-5 SEEN Urine Mucus 0 SEEN Ethyl Alcohol < 10.1 ABG Data ABG results: ABG 03/17/25 11:19 Specimen Type YAO Sample Site Not entered VBG pH 7.48 H VBG pO2 49 H VBG HCO3 26 VBG Total CO2 27 VBG O2 Sat (Calc) 88 H VBG Base Excess 2 POC Mix VBG pCO2 Pt Tmp 34.3 L O2 Delivery Device Not entered Radiography Diagnostic Testing: Clinical Impression(s) from Imaging Studies Abdomen/Pelvis CT 03/17/25 10:59 IMPRESSION: No acute abdominopelvic abnormalities. Reading Location: [facility] Chest X-Ray 03/17/25 10:59 IMPRESSION: No acute cardiopulmonary process Reading Location: [facility] Brain CT 03/17/25 11:52 IMPRESSION: No acute intracranial abnormalities. Reading Location: [facility] Discharge Plan Disposition Disposition: Acute Care Hospital [facility] Discharge Date/Time: 03/17/25 14:54
[2025-03-17] MEDS: 0.9% Normal Saline (1000mL) 1,000 ML 1000 ML IV (11:19)
[2025-03-17 11:24] LABS: SITE Not entered; VBG BASE EXCESS 2 mmol/L (-1.0-3.5); VBG PO2 49 mmHg (25-40); VBG SO2 88 % (50-70); VBG TCO2 27 mmol/L (23-33)
[2025-03-17 11:36] LABS: Immature Granulocytes Count 0.160 X10^3/uL (0.0-0.0); Mean Corp Hgb Conc 35.5 g/dL (32-36); Mean Corpuscular Volume 93.5 fL (80-94); Mean Platelet Vol. 9.5 fl (6.2-12.0); NRBC Flagged by Analyzer 0 % (0-5); POSITIVE DIFFERENTIAL YES; Platelet Count 529 K/mm3 (150-450); RBC Distribution Width CV 13.2 % (11.6-14.6); RBC Distribution Width SD 45.1 fl (35.1-43.9); Red Blood Count 5.99 M/mm3 (4.6-6.2); White Blood Count 23.1 K/mm3 (4.4-11.0)
[2025-03-17 11:38] LABS: Hematocrit 56.0 % (40-54)
[2025-03-17 11:39] LABS: Differential Indicated SCAN CRITERIA MET; Hemoglobin 19.9 g/dL (13.0-16.5)
--- NOTE | 2025-03-17 11:52 | CT_ITS ---
PROCEDURE: BRAIN/HEAD WITHOUT CONTRAST 03/17/2025 REASON FOR EXAM: AMS TECHNIQUE: BRAIN/HEAD WITHOUT CONTRAST Coronal and Sagittal reconstruction series were provided. One or more dose reduction techniques were used (e.g., Automated exposure control, adjustment of the mA and/or kV according to patient size, use of iterative reconstruction technique. RADIATION DOSE SUMMARY: CTDlvol: Isovue 370 mGy DLP: 75 mGycm COMPARISON: None. FINDINGS: Brain: No acute intracranial hemorrhage. No acute territorial vascular infarction. No abnormal enhancement. No mass-effect or midline shift. CSF Spaces: Normal Sinuses/Mastoids: Clear. Bones: No acute bony abnormalities. CT/Brain/Head without Contrast IMPRESSION: No acute intracranial abnormalities. Reading Location: [id number]
--- NOTE | 2025-03-17 11:54 | ED.RN ---
pt came back from CT scan stating that he was hot and unable to breathe from the contrast. pt vitals are stable, pt is alert and oriented to person, place and time. pt states to this RN that he does not want the CT scan. daughter educates patient that he won't be able to figure out what is wrong until they do the scan. pt still declines to proceed with the CT scan. dr rollins updated
--- OUTSIDE RECORDS SUMMARY | 2025-03-17 12:07 | XMS RPT_ITS | CCD ---
Author Organization [facility]iniSyn[facility] Care Team Providers Care Qa Internship Name Role Phone DAVID SALDIVAR Dr. John E Primary Care Provider [phone] Dr. Zia Osman Referring Provider Nohemi MARTINEZ PA Lazaro Attending Provider [phone] Zia Osman Primary Care Provider [phone] Dr. Zia Osman Referring Provider [phone] Nohemi MARTINEZ PA Lazaro Attending Provider [phone] Ken Mukherjee Emergency Provider Dr. Reed Espana Admit Provider Dr. Reed Espana Attending Provider Dr. Reed Espana Other Provider Dr. Jama Garner Other Provider Dr. Cally Zacarias Other Provider Dr. Rickey Brown Other Provider [phone] Timmy Alcazar Attending Provider Luis Felipe, Dr. Christian Attending Provider Dr. Cally Zacarias Attending Provider Dr. Zia Osman Primary Care Provider Dr. Zia Osman Referring Provider Nohemi MARTINEZ PA Lazaro Attending Provider [phone] Will Hector Emergency Provider Dr. Justa Davidson Admit Provider Dr. Justa Davidson Attending Provider Dr. Justa Davidson Other Provider Pcp, No Primary Care Provider UnavailCelina Gross MD Primary Care Provider Schinner, Zia E Referring Unavailable Schinner, Zia E Primary Care Unavailable Friend, Gino Attending Unavailable Nohemi PA, Lazaro Referring Unavailable Nohemi MARTINEZ, Lazaro Attending Unavailable Schinner, Zia E Primary Care Unavailable Schinner, Zia E Referring Unavailable Schinner, Zia E Primary Care Unavailable Waysalma PA, Lazaro Attending Unavailable Schinner, Zia E Referring Unavailable Friend, Gino Attending Unavailable Schinner, Zia E Primary Care Unavailable Schinner, Zia E Primary Care Unavailable Friend, Gino Referring Unavailable Friend, Gino Attending Unavailable Schinner, Zia E Primary Care Unavailable Renetta Castro Attending Unavailable Celina Tesfaye MD Primary Care Provider Podlogar AIR BRAKE ADJUSTER.Danna POOLE Unavailable [place]le AIR BRAKE ADJUSTER.Anjelica POOLE Unavailable ANJELICA MUNOZ Referring Unavailable CELINA TESFAYE Primary Care Unavailab ANJELICA Abernathy Attending Unavailable CELINA TESFAYE Primary Care Unavailab chance Munoz AIR BRAKE ADJUSTER.Anjelica POOLE Unavailable Allergies Allergy Classification Reported Allergen(s) Allergy Type Date of Onset Reaction(s) Facility Penicillins (antibiotic) (1 source) Penicillin G Drug Allergy 11-27-2010 [facility] (10 sources) FLUoxetine Drug Allergy 11-15-[address] [facility] (10 sources) Penicillins Allergy to substance 11-15-[address] [facility] (20 sources) Penicillin G; Translations: [PENICILLIN G] Drug Allergy 11-27-2010 [facility] (1 source) FLUoxetine Drug Allergy 01-07-[address] [facility] (1 source) Penicillins Drug allergy (disorder) 01-07-[address] [facility] Medications Current Medications Medication Drug Class(es) Dates Sig (Normalized) Sig (Original) allopurinol 300 mg oral tablet (20 sources) Xanthine Oxidase Inhibitor Start: 02-19-2025 End: 08-18-2025 take 1 tablet by mouth once daily allopurinol (ZYLOPRIM) 300 mg tablet Take 1 tablet by mouth once daily. 90 tablet 1 02/19/2025 08/18/2025 Active Start: 09-29-2023 End: 01-07-2025 take 1 tablet by mouth once daily allopurinol (ZYLOPRIM) 300 mg tablet Take 1 tablet by mouth once daily. 90 tablet 1 07/11/2024 01/07/2025 Active Start: 11-17-2022 End: 02-17-2025 take 1 tablet by mouth once daily allopurinol (ZYLOPRIM) 300 mg tablet Take 1 tablet by mouth once daily. 90 tablet 1 03/19/2023 09/15/2023 Active Comment on above: Take 300 mg by mouth once daily. Take 1 tablet by mayte th once daily. amLODIPine 10 mg oral tablet (10 sources) Dihydropyridine Calcium Channel Jared Start: End: 3 take 10 mg by mouth once daily Amlodipine Active 10 MG PO DAILY November 17, 2022 6:52pm calcium citrate 950 mg oral tablet (20 sources) Start: End: 6 take 0.5 tablet by mouth twice daily calcium citrate (CALCITRATE) 200 mg (950 mg) tab Take 0.5 tablets by mouth two times a day. 90 tablet 1 02/19/2025 08/18/2025 Active Start: 11-19-2022 End: 02-17-2025 take 0.5 tablet by mouth twice daily calcium citrate (CALCITRATE) 200 mg (950 mg) tab Take 0.5 tablets by mouth two times a day. 90 tablet 1 07/11/2024 02/17/2025 Discontinued Comment on above: Take 400 mg by mouth twice daily. Take 0.5 tablets by mouth twice daily. cetirizine hydrochloride 10 mg oral tablet (2 sources) Histamine-1 Receptor Antagonist Start: 3 End: 4 take 1 tablet by mouth once daily cetirizine (ZYRTEC) 10 mg tablet Indications: Itching with irritation Take 1 tablet by mouth once daily. 30 tablet 2 06/07/2023 09/05/2023 Active Comment on above: Take 1 tablet by mayte th once daily. finasteride 5 mg oral tablet (20 sources) 5-alpha Reductase Inhibitor Start: End: take 1 tablet by mouth once daily finasteride (PROSCAR) 5 mg tablet Take 1 tablet by mouth once daily. 90 tablet 1 02/19/2025 08/18/2025 Active Start: 10-25-2023 End: 01-07-2025 take 1 tablet by mouth once daily finasteride (PROSCAR) 5 mg tablet Indications: BPH with obstruction/lower urinary tract symptoms Take 1 tablet by mouth once daily. 90 tablet 1 07/11/2024 01/07/2025 Active Start: 06-20-2017 End: 02-17-2025 take 1 tablet by mouth once daily finasteride (PROSCAR) 5 mg tablet Indications: BPH with obstruction/lower urinary tract symptoms Take 1 tablet by mouth once daily. 90 tablet 1 03/19/2023 09/15/2023 Active Comment on above: TAKE 1 TABLET EVERY DAY Take 1 tablet by mayte th once daily. folic acid 0.4 mg / vitamin b12 0.5 mg oral tablet (10 sources) Vitamin B12 Start: 01-04-2018 take 1 tablet by mouth once daily vitamin B12 500 mcg-folic acid 400 mcg tablet Active 1 TABLET PO daily January 04, 2018 12:00am furosemide 40 mg oral tablet (20 sources) Loop Diuretic Start: 02-19-2025 take 1 tablet by mouth once daily furosemide (LASIX) 40 mg tablet Indications: Peripheral edema Take 1 tablet by mouth once daily. 90 tablet 1 02/19/2025 Active Start: 02-01-2023 End: 02-17-2025 take 1 tablet by mouth once daily furosemide (LASIX) 40 mg tablet Indications: Peripheral edema Take 1 tablet by mouth once daily. 90 tablet 1 07/11/2024 02/17/2025 Discontinued Start: 12-28-2022 End: 01-05-2023 take 1 tablet by mouth once daily furosemide (LASIX) 40 mg tablet Indications: Peripheral edema Take 1 tablet by mouth once daily. 30 tablet 0 12/28/2022 01/05/2023 Discontinued Comment on above: Take 1 tablet by mayte th once daily. lisinopril 10 mg oral tablet (20 sources) Angiotensin Converting Enzyme Inhibitor Start: take 1 tablet by mouth once daily lisinopril (ZESTRIL) 10 mg tablet Indications: Primary hypertension Take 1 tablet by mouth once daily. 90 tablet 1 02/19/2025 Active Start: 07-26-2023 End: 02-17-2025 take 1 tablet by mouth once daily lisinopril (ZESTRIL) 10 mg tablet Indications: Primary hypertension Take 1 tablet by mouth once daily. 90 tablet 1 11/06/2024 02/17/2025 Discontinued Start: 01-05-2023 take 1 tablet by mayte once daily lisinopril (ZESTRIL) 10 mg tablet Indications: Peripheral edema , Primary hypertension Take 1 tablet by mouth once daily. 90 tablet 1 01/05/2023 Active Start: 12-28-2022 End: 01-05-2023 take 2 tablets by mouth once daily lisinopril (ZESTRIL) 5 mg tablet Indications: Peripheral edema Take 2 tablets by mouth once daily. 60 tablet 0 12/28/2022 01/05/2023 Discontinued Comment on above: Take 1 tablet by mayte once daily. Take 2 tablets by mo [facility] once daily. magnesium chloride 598 mg delayed release oral tablet (5 sources) Start: 11-21-2024 End: 05-20-2025 take 2 tablets by mouth once daily Magnesium Chloride (SLOW-MAG) 71.5 mg TbEC Take 2 tablets by mouth once daily. 60 tablet 2 02/19/2025 05/20/2025 Active meloxicam 15 mg oral tablet (20 sources) Nonsteroidal Anti-inflammatory Drug Start: 09-14-2022 take 15 mg by mouth once daily Meloxicam Active 15 MG PO DAILY September 14, 2022 1:00am Start: 06-17-2017 End: 01-19-2019 Meloxicam Discontinued 15 MG PO NEEDED June 17, 2017 1:00am January 19, 2019 11:26am Start: 07-04-2015 End: 05-30-2017 take 15 mg by mouth once daily Meloxicam Discontinued 15 MG PO DAILY July 04, 2015 1:00am May 30, 2017 10:27am omeprazole 20 mg delayed release oral capsule (20 sources) Proton Pump Inhibitor Start: 02-19-2025 take 1 capsule by mouth once daily before breakfast omeprazole (PRILOSEC) 20 mg capsule Indications: Heartburn Take 1 capsule by mouth daily before breakfast. 1/2 hr before meal. 90 capsule 1 02/19/2025 Active Start: 01-05-2023 End: 02-17-2025 take 1 capsule by mouth once daily before breakfast omeprazole (PRILOSEC) 20 mg capsule Indications: Heartburn Take 1 capsule by mouth daily before breakfast. 1/2 hr before meal. 90 capsule 1 11/06/2024 02/17/2025 Discontinued Start: 07-04-2015 End: 11-17-2022 take 40 mg by mouth once daily Omeprazole Discontinued 40 MG PO DAILY July 04, 2015 1:00am November 17, 2022 9:36am Comment on above: Take 1 capsule by mo ut daily before breakfast. 1/2 hr before meal. perflutren lipid microspheres 1.3 mL in NaCl (PF) 0.9% 10 mL injection (DEFINITY) (20 sources) Start: 3 End: 4 perflutren lipid microspheres 1.3 mL in NaCl (PF) 0.9% 10 mL injection (DEFINITY) 125 ml sodium chloride 9 mg/ml prefilled syringe (20 sources) Start: 3 End: 4 sodium chloride 0.9 % (flush) 10 mL (BD POSIFLUSH) tamsulosin hydrochloride 0.4 mg oral capsule (20 sources) alpha-Adrenergic Jared Start: 5 End: 6 take 1 capsule by mouth once daily tamsulosin (FLOMAX) 0.4 mg Take 1 capsule by mouth once daily. 90 capsule 1 02/19/2025 08/18/2025 Active Start: 06-14-2018 End: 02-17-2025 take 1 capsule by mouth once daily tamsulosin (FLOMAX) 0.4 mg Take 1 capsule by mouth once daily. 90 capsule 1 07/11/2024 02/17/2025 Discontinued Start: 06-20-2017 End: 06-29-2017 take 0.4 mg by mouth once daily Tamsulosin Active 0.4 MG PO DAILY@1730 June 29, 2017 3:12pm Comment on above: TAKE 1 CAPSULE BY MO UTH EVERY DAY Take 1 capsule by mo uth once daily. Completed/Discontinued Medications Medication Drug Class(es) Dates Sig (Normalized) Sig (Original) ABD pad (10 sources) Start: 06-02-2018 End: 07-14-2018 ABD pad Discontinued June 01, 2018 11:00pm July 14, 2018 1:26pm Change daily. Wound size is approximately 3 cm diameter Start: 06-02-2018 End: 07-14-2018 ABD pad Discontinued 2017 12:00am July 14, 2018 2:26pm Change daily. Wound size is approximately 3 cm diameter acetaminophen 325 mg / HYDROcodone bitartrate 5 mg oral tablet (10 sources) Opioid Agonist Start: 06-01-2018 End: 06-07-2018 take 1 tablet by mouth every six hours as needed Hydrocodone-Acetaminophen Discontinued 1 TABLET PO EVERY 6 HOURS NEEDED 26 01June 01, 2018 12:00June 07, 2018 12:13am acetaminophen 325 mg / oxyCODONE hydrochloride 5 mg oral tablet (20 sources) Opioid Agonist Start: 05-29-2018 End: 06-01-2018 take 1 tablet by mouth every six hours as needed Oxycodone-Acetaminophen Discontinued 1 TABLET PO EVERY 6 HOURS NEEDED 07 11May 29, 2018 12:00am June 01, 2018 12:07am Start: 07-04-2015 End: 07-06-2015 take 1 tablet by mouth every four hours as needed Oxycodone-Acetaminophen Discontinued 1 - 2 TABLET PO EVERY 4 HOURS NEEDED July 04, 2015 1:00am July 06, 2015 11:55am amitriptyline hydrochloride 10 mg oral tablet (10 sources) Tricyclic Antidepressant Start: 07-04-2015 End: 06-20-2017 take 10 mg by mouth at bedtime Amitriptyline Discontinued 10 MG PO AT BEDTIME July 04, 2015 1:00am June 20, 2017 8:43am belladonna alkaloids 16.2 mg / opium 60 mg rectal suppository (10 sources) Start: 05-29-2018 End: 07-14-2018 take 60 mg rectal route once daily Belladonna Alkaloids-Opium Discontinued 60 MG RECTAL DAILY May 29, 2018 12:00am July 14, 2018 2:27pm clindamycin 300 mg oral capsule (20 sources) Lincosamide Antibacterial Start: 06-17-2017 End: 06-20-2017 take 1 capsule by mouth every six hours Clindamycin Hcl (Cleocin) 300 MG capsule Discontinued 300 MG PO EVERY 6 HOURS June 17, 2017 1:00am June 20, 2017 8:43am Start: 07-04-2015 End: 07-06-2015 take 300 mg by mouth three times daily Clindamycin Hcl Discontinued 300 MG PO THREE TIMES A DAY 60 July 04, 2015 1:00am July 06, 2015 11:54am doxycycline monohydrate 100 mg oral capsule (10 sources) Tetracycline-class Drug Start: 06-29-2017 End: 01-04-2018 take 100 mg by mouth twice daily Doxycycline Monohydrate Discontinued 100 MG PO TWICE A DAY June 29, 2017 1:00am January 04, 2018 1:51pm escitalopram 10 mg oral tablet (20 sources) Serotonin Reuptake Inhibitor Start: 06-17-2017 End: 06-20-2017 take 10 mg by mouth three times daily Escitalopram Oxalate Discontinued 10 MG PO THREE TIMES A DAY June 17, 2017 10:44pm June 20, 2017 8:43am Start: 05-30-2017 End: 06-17-2017 take 10 mg by mouth once daily Escitalopram Oxalate Di scontinued 10 MG PO DAILY May 30, 2017 12:00am June 17, 2017 10:44pm etodolac 300 mg oral capsule (16 sources) Nonsteroidal Anti-inflammatory Drug Start: 07-16-2022 End: 09-14-2022 take 300 mg by mouth every eight hours Etodolac Discontinued 300 MG PO Q8H July 30, 2022 12:44pm September 14, 2022 5:25pm FLUoxetine 20 mg oral capsule (10 sources) Serotonin Reuptake Inhibitor Start: 07-04-2015 End: 05-30-2017 take 80 mg by mouth once daily Fluoxetine Discontinued 80 MG PO DAILY July 04, 2015 1:00am May 30, 2017 10:27am gauze (10 sources) Start: 06-02-2018 End: 07-14-2018 gauze Discontinued June 01, 2018 11:00pm July 14, 2018 1:26pm Change daily. Wound size is approximately 3 cm diameter Start: 06-02-2018 End: 07-14-2018 gauze Discontinued 2017 12:00am July 14, 2018 2:26pm Change daily. Wound size is approximately 3 cm diameter hydroCHLOROthiazide 12.5 mg / lisinopril 20 mg oral tablet (20 sources) Thiazide Diuretic, Angiotensin Converting Enzyme Inhibitor Start: 06-17-2017 End: 11-13-2022 take 1 tablet by mouth once daily Lisinopril-Hydrochlorothiazide Discontinued 1 TABLET PO DAILY June 17, 2017 1:00am November 13, 2022 3:56pm 20/12.5mg Start: 07-04-2015 End: 05-30-2017 take 1 tablet by mouth once daily Lisinopril-Hydrochlorothiazide (Zestoret ic) 1 TABLET tablet Discontinued 1 TABLET PO DAILY July 04, 2015 1:00am May 30, 2017 10:27am loperamide hydrochloride 2 mg oral capsule (10 sources) Opioid Agonist Start: 06-29-2017 End: 07-16-2022 take 2 mg by mouth every four hours as needed Loperamide Discontinued 2 MG PO EVERY 4 HOURS NEEDED June 29, 2017 1:00am July 16, 2022 3:41pm magnesium oxide 400 mg oral tablet (20 sources) Start: 08-17-2023 End: 02-19-2025 take 2 tablets by mouth twice daily magnesium oxide (MAG-OX) 400 mg (241.3 mg magnesium) tablet Indications: Hypomagnesemia Take 2 tablets by mouth two times a day. 120 tablet 5 07/11/2024 02/19/2025 Discontinued (Course of therapy completed) Start: 06-14-2018 take 1 tablet by mayte th twice daily magnesium oxide (MAG-OX) 400 mg (241.3 mg magnesium) tablet TAKE 1 TABLET BY MOUTH TWICE DAILY 60 tablet 5 06/14/2018 Active Start: 06-20-2017 End: 11-19-2022 take 400 mg by mouth twice daily at mealtime Magnesium Oxide Discontinued 400 MG PO TWICE DAILY WITH MEALS June 29, 2017 3:12pm November 19, 2022 12:49pm Comment on above: TAKE 1 TABLET BY MAYTE TH TWICE DAILY Take 1 tablet by mayte th two times a day. Take 2 tablets by mo [facility] two times a day. metOLazone 2.5 mg oral tablet (1 source) Thiazide-like Diuretic Start: 12-29-19 End: 01-06-20 take 1 tablet by mouth once daily metOLazone (ZAROXOLYN) 2.5 mg tablet Indications: Peripheral edema Take 1 tablet by mouth once daily. 30 tablet 0 12/28/2022 01/05/2023 Discontinued Comment on above: Take 1 tablet by mayte th once daily. metroNIDAZOLE 500 mg oral tablet (10 sources) Nitroimidazole Antimicrobial Start: 06-01-20 End: 07-14-20 take 500 mg by mouth every eight hours Metronidazole Discontinued 500 MG PO Q8H June 01, 2018 12:00am July 14, 2018 2:27pm pantoprazole 40 mg delayed release oral tablet (7 sources) Proton Pump Inhibitor Start: 12-12-19 End: 01-06-20 take 1 tablet by mouth twice daily pantoprazole DR (PROTONIX) 40 mg tablet Take 40 mg by mouth twice daily. 0 12/11/2022 01/05/2023 Discontinued Start: 11-13-2022 take 40 mg by mouth twice daily Pantoprazole Active 40 MG PO TWICE A DAY November 13, 2022 12:00am Comment on above: Take 40 mg by mouth twice daily. sucralfate 1000 mg oral tablet (7 sources) Aluminum Complex Start: 11-14-19 End: 01-06-20 take 1 tablet by mouth every six hours sucralfate (CARAFATE) 1 gram tablet Take 1 g by mouth every 6 hours. 0 11/13/2022 01/05/2023 Discontinued Comment on above: Take 1 g by mouth ev natty 6 hours. sulfamethoxazole 800 mg / trimethoprim 160 mg oral tablet (10 sources) Dihydrofolate Reductase Inhibitor Antibacterial, Sulfonamide Antimicrobial Start: 06-01-20 End: 07-14-20 take 1 tablet by mouth twice daily Sulfamethoxazole-Tr imethoprim Discontinued 1 TABLET PO TWICE A DAY June 01, 2018 12:00am July 14, 2018 2:26pm Bactrim 160/800 mg Problems Active Problems Problem Classification Problem Date Documented Da te Episodic/Chronic Acute and unspecified renal failure (13 sources) Acute renal failure syndrome; Translations: [Acute kidney failure, unspecified] 11-09-2022 Episodic Alcohol-related disorders (20 sources) Nondependent alcohol abuse, continuous; Translations: [Alcohol abuse, uncomplicated] Onset: 7 Resolved: 7 05-30-2018 Chronic Allergic reactions (1 source) Eczema; Translations: [Dermatitis, unspecified] 09-09-2023 Episodic Anal and rectal conditions (20 sources) Rectal pain; Translations: [Other specified diseases of anus and rectum] 05-30-2018 Episodic Anxiety disorders (20 sources) Anxiety; Translations: [Anxiety disorder, unspecified] Onset: 3 03-04-2023 Chronic Cardiac dysrhythmias (10 sources) ECG: sinus tachycardia; Translations: [Tachycardia, unspecified] 11-17-2022 Episodic Deficiency and other anemia (5 sources) Anemia; Translations: [Anemia, unspecified] 11-17-2022 Episodic Deficiency and other anemia (5 sources) Anemia, unspecified; Translations: [Anemia, unspecified] 11-17-2022 Episodic E Codes: Fall (10 sources) Fall; Translations: [Unspecified fall, initial encounter] 11-09-2022 Episodic Epilepsy; convulsions (13 sources) Situation-related seizures; Translations: [Unspecified convulsions] 11-09-2022 Episodic Esophageal disorders (20 sources) Gastroesophageal reflux disease; Translations: [Gastro-esophageal reflux disease without esophagitis] Onset: 3 05-30-2018 Chronic Essential hypertension (20 sources) Hypertensive disorder; Translations: [Essential (primary) hypertension] Onset: 3 05-30-2018 Chronic Fluid and electrolyte disorders (20 sources) Dehydration; Translations: [Dehydration] 11-09-2022 Episodic Genitourinary symptoms and ill-defined conditions (10 sources) Retention of urine; Translations: [Retention of urine, unspecified] 05-30-2018 Episodic Gout and other crystal arthropathies (20 sources) Gout; Translations: [Gout, unspecified] Onset: 3 03-04-2023 Chronic Hyperplasia of prostate (16 sources) Retention of urine; Translations: [Benign prostatic hyperplasia with lower urinary tract symptoms] Onset: 5 05-30-2018 Chronic Immunizations and screening for infectious disease (8 sources) Patient encounter status; Translations: [Encounter for screening for human immunodeficiency virus [HIV]] Onset: 5 11-06-2024 Episodic Mood disorders (20 sources) Depressive disorder; Translations: [Depression] Onset: 2 05-30-2018 Chronic Mood disorders (1 source) Mood disorders; Translations: [Depression, unspecified depression type] Onset: 3 Other aftercare (1 source) Other long line teamster (current) drug therapy; Translations: [Medication management] Onset: 5 Episodic Other circulatory disease (7 sources) Low blood pressure; Translations: [Hypotension, unspecified] 11-09-2022 Episodic Other circulatory disease (6 sources) Hypotension, unspecified; Translations: [Hypotension, unspecified] 11-13-2022 Episodic Other connective tissue disease (7 sources) Impingement syndrome of shoulder region; Translations: [Impingement syndrome of right shoulder] 09-14-2022 Episodic Other diseases of kidney and ureters (1 source) Other obstructive and reflux uropathy; Translations: [BPH with obstruction/lower urinary tract symptoms] Onset: 5 Episodic Other gastrointestinal disorders (6 sources) Diarrhea; Translations: [Diarrhea, unspecified] 11-09-2022 Episodic Other gastrointestinal disorders (6 sources) Diarrhea, unspecified; Translations: [Diarrhea] 11-13-2022 Episodic Other gastrointestinal disorders (20 sources) Heartburn; Translations: [Heartburn] Onset: 2 Episodic Other hereditary and degenerative nervous system conditions (10 sources) Serotonin syndrome; 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] 05-30-2018 Chronic Other inflammatory condition of skin (2 sources) Itching ; Translations: [Pruritus, unspecified] 03-04-2023 Episodic Other injuries and conditions due to external causes (8 sources) Injury of right shoulder; Translations: [Unspecified injury of right shoulder and upper arm, initial encounter] 07-16-2022 Episodic Other injuries and conditions due to external causes (3 sources) Unspecified injury of right shoulder and upper arm, initial encounter; Translations: [Shoulder and upper arm injury] 07-16-2022 Episodic Other injuries and conditions due to external causes (7 sources) Injury of head; Translations: [Unspecified injury of head, initial encounter] 11-09-2022 Episodic Other injuries and conditions due to external causes (6 sources) Unspecified injury of head, initial encounter; Translations: [Head injury, unspecified] 11-13-2022 Episodic Other injuries and conditions due to external causes (1 source) Excoriation of skin; Translations: [Unspecified multiple injuries, initial encounter] 03-04-2023 Episodic Other liver diseases (6 sources) Elevated liver enzymes level; Translations: [Abnormal levels of other serum enzymes] 11-13-2022 Episodic Other liver diseases (5 sources) Abnormal levels of other serum enzymes; Translations: [Other nonspecific abnormal serum enzyme levels] 11-13-2022 Episodic Other lower respiratory disease (7 sources) Hypoxia; Translations: [Hypoxemia] 11-09-2022 Episodic Other lower respiratory disease (6 sources) Hypoxemia; Translations: [Hypoxemia] 11-13-2022 Episodic Other nervous system disorders (10 sources) Disorder of brain; Translations: [Encephalopathy, unspecified] 05-30-2018 Chronic Other nervous system disorders (6 sources) Encephalopathy, unspecified; Translations: [Encephalopathy, unspecified] 11-13-2022 Chronic Other nervous system disorders (20 sources) Metabolic encephalopathy; Translations: [Metabolic encephalopathy] Onset: 7 11-08-2017 Chronic Other non-traumatic joint disorders (8 sources) Shoulder pain; Translations: [Pain in right shoulder] 07-16-2022 Episodic Other non-traumatic joint disorders (3 sources) Pain in right shoulder; Translations: [Pain in joint, shoulder region] 07-16-2022 Episodic Other nutritional; endocrine; and metabolic disorders (20 sources) Hypomagnesemia; Translations: [Hypomagnesemia] Onset: 3 11-17-2022 Chronic Other nutritional; endocrine; and metabolic disorders (20 sources) Hypocalcemia; Translations: [Hypocalcemia] Onset: 3 11-17-2022 Chronic Other nutritional; endocrine; and metabolic disorders (5 sources) Hypocalcemia; Translations: [Hypocalcemia] 11-17-2022 Chronic Other nutritional; endocrine; and metabolic disorders (6 sources) Hypomagnesemia; Translations: [Disorders of magnesium metabolism] Onset: 3 11-17-2022 Chronic Other screening for suspected conditions (not mental disorders or infectious disease) (9 sources) Computed tomography result abnormal; Translations: [Abnormal findings on diagnostic imaging of other specified body structures] 11-09-2022 Chronic Other screening for suspected conditions (not mental disorders or infectious disease) (3 sources) Encounter for screening for diabetes mellitus; Translations: [Encounter for screening for malignant neoplasm of prostate] Onset: 5 Episodic Regional enteritis and ulcerative colitis (12 sources) Crohn's disease; Translations: [Crohn's disease, unspecified, without complications] Onset: 3 11-13-2022 Chronic Residual codes; unclassified (7 sources) Altered mental status; Translations: [Altered mental status, unspecified] 11-09-2022 Episodic Residual codes; unclassified (6 sources) Altered mental status, unspecified; Translations: [Altered mental status] 11-13-2022 Episodic Residual codes; unclassified (8 sources) Peripheral edema; Translations: [Edema, unspecified] Episodic Residual codes; unclassified (2 sources) Bilateral lower limb edema; Translations: [Localized edema] 03-03-2023 Episodic Septicemia (except in labor) (20 sources) Septic shock; Translations: [Sepsis, unspecified organism] 11-09-2022 Episodic Substance-related disorders (20 sources) Smoker; Translations: [Nicotine dependence, unspecified, uncomplicated] Onset: 2 05-30-2018 Chronic Past or Other Problems Problem Classification Problem Date Documented Da te Episodic/Chronic Gastrointestinal hemorrhage (20 sources) Upper gastrointestinal bleeding; Translations: [Gastrointestinal hemorrhage, unspecified] Onset: 3 11-11-2022 Episodic Other connective tissue disease (9 sources) Impingement syndrome of right shoulder; Translations: [Other affections of shoulder region, not elsewhere classified] Onset: 3 09-14-2022 Episodic Other gastrointestinal disorders (1 source) Heartburn; Translations: [Heartburn] Onset: 2 Episodic Residual codes; unclassified (5 sources) Current drinker; Translations: [Other specified health status] Onset: 7 Resolved: 7 08-05-2017 Episodic Spondylosis; intervertebral disc disorders; other back problems (20 sources) Pain in thoracic spine; Translations: [Pain in thoracic spine] Onset: 2 09-27-2017 Episodic Substance-related disorders (20 sources) Marijuana user; Translations: [Cannabis use, unspecified, uncomplicated] Onset: 7 08-05-2017 Episodic Results Test Name Value Interpretation Reference Range Facility [facility] 12-28-2024 [facility] Telephone ([facility]) -------- HANSEL LOVE ([id number]) 1970 M Date Time Provider Department 12/28/24 CELINA TESFAYE During your visit today, we recorded the following information about you: Karine Peña RN 12/28/2024 4:23 PM Signed Pts daughter Martine called in and was asking about if the labs to get the Pt Magnesium redrawn were still in the computer. I told her the Pt was supposed to get them done in 2-4 weeks and they were in there. She states the Pt is feeling like he had been when his Mag was low before. He is dizzy and the room is spinning when he lays his head back, and he says his skin doesn't feel right. I told her I could make an appointment for the Pt. She states they would just have hi do the lab work any ways. She said if he gets worse she will call back in to make an appointment. CINDY Dominguez Christopher B, MD 12/29/2024 7:13 AM Signed If he has persistent dizziness or other symptoms of stroke would recommend ER. Labs are still in there to be completed. Karine Peña RN 12/29/2024 8:30 AM Signed Pts daughter called and is notified of providers message and instructions. She voices understanding. Karine Peña RN Allergies As of Date: 12/28/2024 Noted Allergy Reaction PENICILLIN G 11/27/2010 4 - Hives Date Reviewed: 11/06/2024 Reviewed by: Martine See MA - Fully Assessed Reason for Visit: Patient Update [1234] Prescriptions as of 12/29/2024 - Magnesium Chloride (SLOW-MAG) 71.5 mg TbEC Take 2 tablets by mouth once daily. - omeprazole (PRILOSEC) 20 mg capsule Take 1 capsule by mouth daily before breakfast. 1/2 hr before meal. - lisinopril (ZESTRIL) 10 mg tablet Take 1 tablet by mouth once daily. - furosemide (LASIX) 40 mg tablet Take 1 tablet by mouth once daily. - finasteride (PROSCAR) 5 mg tablet Take 1 tablet by mouth once daily. - calcium citrate (CALCITRATE) 200 mg (950 mg) tab Take 0.5 tablets by mouth two times a day. - allopurinol (ZYLOPRIM) 300 mg tablet Take 1 tablet by mouth once daily. - magnesium oxide (MAG-OX) 400 mg (241.3 mg magnesium) tablet Take 2 tablets by mouth two times a day. - tamsulosin (FLOMAX) 0.4 mg Take 1 capsule by mouth once daily. Problem List As Of Date 12/28/2024 Noted Resolved Tobacco use disorder [F17.200] 12/18/2011 Heartburn [R12] 12/18/2011 Depression [F32.A] 12/18/2011 Pain in thoracic spine [M54.6] 12/18/2011 Essential hypertension, benign [I10] 09/22/2012 Alcohol use [F10.90] 08/05/2017 08/05/2017 Alcohol abuse [F10.10] 08/05/2017 Marijuana use [F12.90] 08/05/2017 Acute metabolic encephalopathy [G93.41] 08/05/2017 GERD (gastroesophageal reflux disease) [K21.9] 03/04/2023 GI bleed [K92.2] 03/04/2023 Gout [M10.9] 03/04/2023 Anxiety [F41.9] 03/04/2023 Hypocalcemia [E83.51] 03/04/2023 Hypomagnesemia [E83.42] 03/04/2023 Encounter Status:Closed by KARINE PEÑA on 12/29/24 Normal [facility] CBC W Auto Differential pane l (Bld)on 11-06-2024 Basophils (Bld) [#/Vol] 0.09 10*3/uL Normal <0.11 [facility] Comment on above: Order Comment: Speci men Type: BLOOD SPECIMEN Ordering Facility: [facility] Address: [address] [place] [address] Performed By: #### 5 7021-8 #### [facility] CLIA [id number] [address] [place] [address] [place] Basophils/100 WBC (Bld) 1.4 % Normal [facility] Comment on above: Order Comment: Speci men Type: BLOOD SPECIMEN Ordering Facility: [facility] Address: [address] [place] [address] Performed By: #### 5 7021-8 #### [facility] CLIA [id number] [address] [place] [address] [place] Differential cell count method Nom (Bld) Auto Normal [facility] Comment on above: Order Comment: Speci men Type: BLOOD SPECIMEN Ordering Facility: [facility] Address: [address] [place] [address] Performed By: #### 5 7021-8 #### [facility] CLIA [id number] [address] [place] [address] [place] Eosinophils (Bld) [#/Vol] 0.36 10*3/uL Normal <0.46 [facility] Comment on above: Order Comment: Speci men Type: BLOOD SPECIMEN Ordering Facility: [facility] Address: [address] [place] [address] Performed By: #### 5 7021-8 #### [facility] CLIA [id number] [address] [place] [address] [place] Eosinophils/100 WBC (Bld) 5.5 % Normal [facility] Comment on above: Order Comment: Speci men Type: BLOOD SPECIMEN Ordering Facility: [facility] Address: [address] [place] [address] Performed By: #### 5 7021-8 #### [facility] CLIA [id number] [address] [place] [address] [place] Erythrocyte distribution width (RBC) [Ratio] 12.8 % Normal 11.5-15.0 [facility] Comment on above: Order Comment: Speci men Type: BLOOD SPECIMEN Ordering Facility: [facility] Address: [address] [place] [address] Performed By: #### 5 7021-8 #### [facility] CLIA [id number] [address] [place] [address] [place] Hematocrit (Bld) [Volume fraction] 38.9 % Low 39.0-51.0 [facility] Comment on above: Order Comment: Speci men Type: BLOOD SPECIMEN Ordering Facility: [facility] Address: [address] [place] [address] Performed By: #### 5 7021-8 #### [facility] CLIA [id number] [address] [place] [address] [place] Hemoglobin (Bld) [Mass/Vol] 13.0 g/dL Normal 13.0-17.0 [facility] Comment on above: Order Comment: Speci men Type: BLOOD SPECIMEN Ordering Facility: [facility] Address: [address] [place] [address] Performed By: #### 5 7021-8 #### [facility] CLIA [id number] [address] [place] [address] [place] Immature granulocytes (Bld) [#/Vol] 10*3/uL Normal <0.10 [facility] Comment on above: Order Comment: Speci men Type: BLOOD SPECIMEN Ordering Facility: [facility] Address: [address] [place] [address] Performed By: #### 5 7021-8 #### [facility] CLIA [id number] [address] [place] [address] [place] Immature granulocytes/100 WBC (Bld) 0.3 % Normal [facility] Comment on above: Order Comment: Speci men Type: BLOOD SPECIMEN Ordering Facility: [facility] Address: [address] [place] [address] Performed By: #### 5 7021-8 #### [facility] CLIA [id number] [address] [place] [address] [place] Lymphocytes (Bld) [#/Vol] 2.03 10*3/uL Normal 1.00-4.00 [facility] Comment on above: Order Comment: Speci men Type: BLOOD SPECIMEN Ordering Facility: [facility] Address: [address] [place] [address] Performed By: #### 5 7021-8 #### [facility] CLIA [id number] [address] [place] [address] [place] Lymphocytes/100 WBC (Bld) 31.2 % Normal [facility] Comment on above: Order Comment: Speci men Type: BLOOD SPECIMEN Ordering Facility: [facility] Address: [address] [place] [address] Performed By: #### 5 7021-8 #### [facility] CLIA [id number] [address] [place] [address] [place] MCH (RBC) [Entitic mass] 33.4 pg Normal 26.0-34.0 [facility] Comment on above: Order Comment: Speci men Type: BLOOD SPECIMEN Ordering Facility: [facility] Address: [address] [place] [address] Performed By: #### 5 7021-8 #### [facility] CLIA [id number] [address] [place] [address] [place] MCHC (RBC) [Mass/Vol] 33.4 g/dL Normal 30.5-36.0 [facility] Comment on above: Order Comment: Speci men Type: BLOOD SPECIMEN Ordering Facility: [facility] Address: [address] [place] [address] Performed By: #### 5 7021-8 #### [facility] CLIA [id number] [address] [place] [address] [place] MCV (RBC) [Entitic vol] 100.0 fL Normal 80.0-100.0 [facility] Comment on above: Order Comment: Speci men Type: BLOOD SPECIMEN Ordering Facility: [facility] Address: [address] [place] [address] Performed By: #### 5 7021-8 #### [facility] CLIA [id number] [address] [place] [address] [place] Monocytes (Bld) [#/Vol] 0.85 10*3/uL Normal <0.87 [facility] Comment on above: Order Comment: Speci men Type: BLOOD SPECIMEN Ordering Facility: [facility] Address: [address] [place] [address] Performed By: #### 5 7021-8 #### [facility] CLIA [id number] [address] [place] [address] [place] Monocytes/100 WBC (Bld) 13.1 % Normal [facility] Comment on above: Order Comment: Speci men Type: BLOOD SPECIMEN Ordering Facility: [facility] Address: [address] [place] [address] Performed By: #### 5 7021-8 #### [facility] CLIA [id number] [address] [place] [address] [place] Neutrophils (Bld) [#/Vol] 3.16 10*3/uL Normal 1.45-7.50 [facility] Comment on above: Order Comment: Speci men Type: BLOOD SPECIMEN Ordering Facility: [facility] Address: [address] [place] [address] Performed By: #### 5 7021-8 #### [facility] CLIA [id number] [address] [place] [address] [place] Neutrophils/100 WBC (Bld) 48.5 % Normal [facility] Comment on above: Order Comment: Speci men Type: BLOOD SPECIMEN Ordering Facility: [facility] Address: [address] [place] [address] Result Comment: Diff erential confirmed by visual scan of peripheral blood smear slide. Performed By: #### 5 7021-8 #### [facility] CLIA [id number] [address] [place] [address] [place] Nucleated RBC (Bld) [#/Vol] 10*3/uL Normal <0.01 [facility] Comment on above: Order Comment: Speci men Type: BLOOD SPECIMEN Ordering Facility: [facility] Address: [address] [place] [address] Performed By: #### 5 7021-8 #### [facility] CLIA [id number] [address] [place] [address] [place] Nucleated RBC/100 WBC (Bld) [Ratio] 0.0 /100 WBC Normal [facility] Comment on above: Order Comment: Speci men Type: BLOOD SPECIMEN Ordering Facility: [facility] Address: [address] [place] [address] Performed By: #### 5 7021-8 #### [facility] CLIA [id number] [address] [place], [place] [address] [place] Platelet mean volume (Bld) [Entitic vol] 9.2 fL Normal 9.0-12.7 [facility] Comment on above: Order Comment: Speci men Type: BLOOD SPECIMEN Ordering Facility: [facility] Address: [address] [place] [address] Performed By: #### 5 7021-8 #### [facility] CLIA [id number] [address] [place], [place] [address] [place] Platelets (Bld) [#/Vol] 407 10*3/uL High 150-400 [facility] Comment on above: Order Comment: Speci men Type: BLOOD SPECIMEN Ordering Facility: [facility] Address: [address] [place] [address] Performed By: #### 5 7021-8 #### [facility] CLIA [id number] [address] [place], [place] [address] [place] RBC (Bld) [#/Vol] 3.89 10*6/uL Low 4.20-6.00 [facility] Comment on above: Order Comment: Speci men Type: BLOOD SPECIMEN Ordering Facility: [facility] Address: [address] [place] [address] Performed By: #### 5 7021-8 #### [facility] CLIA [id number] [address] [place] [address] [place] RED CELL MORPH Reviewed: unremarkable Normal [facility] Comment on above: Order Comment: Speci men Type: BLOOD SPECIMEN Ordering Facility: [facility] Address: [address] [place] [address] Performed By: #### 5 7021-8 #### [facility] CLIA [id number] [address] [place] [address] [place] WBC (Bld) [#/Vol] 6.51 10*3/uL Normal 3.70-11.00 [facility] Comment on above: Order Comment: Speci men Type: BLOOD SPECIMEN Ordering Facility: [facility] Address: [address] [place] [address] Performed By: #### 5 7021-8 #### [facility] CLIA [id number] [address] [place] [address] OF MAT CNOVon 11-06-2024 CNOV Office Visit (DE ) -------- HANSEL LOVE ([id number]) 1970 M Date Time Provider Department 11/06/24 4:00 PM ANJELICA MUNOZ During your visit today, we recorded the following information about you: Blood pressure Weight 132/75 77 kg Anjelica Munoz, AIR BRAKE ADJUSTER.INSURANCE DEFENSE ATTORNEY 11/06/2024 4:35 PM Signed Chief Complaint Patient presents with: Physical HPI Hansel Love is a 54 year old male who presents here today for Above Complaints.. Patient presents for annual physical. Denies concerns regarding his health. Past medical history, appointments, medications, allergies reviewed. Previous Medical History PAST MEDICAL HISTORY Diagnosis Date BLUE (acute kidney injury) (HCC) Alcohol abuse Anxiety BPH (benign prostatic hyperplasia) Chronic sinusitis 05/28/2017 CT: mucoperiosteal thickening and debri suggestion chronic sinusitis bilateral ethmoid and right maxillary Depression Essential hypertension GERD (gastroesophageal reflux disease) GI bleed DrCristhian Friend Gout Hip dysplasia chronic since shildhood. bilateral. Hypocalcemia Hypomagnesemia IBS (irritable bowel syndrome) primarily diarrhea Lipomatosis Marijuana use Sepsis (HCC) Serotonin syndrome Previous Surgical History PAST SURGICAL HISTORY Procedure Laterality Date PAST SURGICAL HISTORY OF Left 1986 removed calcium deposit from knee TONSILLECTOMY AND ADENOIDECTOMY Family History FAMILY HISTORY Problem Relation Age of Onset other (Other) Father heart issues, heart attack Diabetes Sister older sister Heart disease Sister Cancer Maternal Grandmother No Known Problems Daughter No Known Problems Son Patient Allergies ALLERGIES Allergen Reactions Penicillin G Hives Current Medications Current Outpatient Medications on File Prior to Visit Medication Sig omeprazole (PRILOSEC) 20 mg capsule Take 1 capsule by mouth daily before breakfast. 1/2 hr before meal. lisinopril (ZESTRIL) 10 mg tablet Take 1 tablet by mouth once daily. furosemide (LASIX) 40 mg tablet Take 1 tablet by mouth once daily. finasteride (PROSCAR) 5 mg tablet Take 1 tablet by mouth once daily. calcium citrate (CALCITRATE) 200 mg (950 mg) tab Take 0.5 tablets by mouth two times a day. allopurinol (ZYLOPRIM) 300 mg tablet Take 1 tablet by mouth once daily. magnesium oxide (MAG-OX) 400 mg (241.3 mg magnesium) tablet Take 2 tablets by mouth two times a day. tamsulosin (FLOMAX) 0.4 mg Take 1 capsule by mouth once daily. No current facility-administered medications on file prior to visit. Social History Social History Tobacco Use Smoking status: Every Day Current packs/day: 1.00 Average packs/day: 1 pack/day for 37.0 years (37.0 ttl pk-yrs) Types: Cigarettes Smokeless tobacco: Never Substance Use Topics Alcohol use: Not Currently Comment: once per month Drug use: Not Currently Types: Marijuana Comment: last use 2021 Review of Symptoms REVIEW OF SYSTEMS SEE HPI EXAM: BP 132/75 Wt 77 kg (169 lb 12.1 oz) BMI 25.07 kg/m? General Appearance: Well appearing, alert, in no acute distress, well-hydrated, well nourished. Skin: Skin color, texture, turgor normal, no suspicious rashes or lesions. Neck: Supple, no adenopathy; thyroid symmetric, normal size, no bruits. Lungs: Lungs clear to auscultation. No wheezing, rhonchi, rales.. Heart: RRR without murmur, gallop, or rubs. No ectopy. Abdomen: Normal abdominal exam, Abdomen soft, non-tender. Bowel sounds normal. No masses, organomegaly. Musculoskeletal: No joint swelling, deformity, or tenderness. Peripheral Pulses: Normal. Neurologic: Gait normal. Reflexes normal and symmetric. Sensation grossly intact.. Health Maintenance List Hepatitis C Screening Never done HIV Screening Never done BP Controlled (<130/80) Never done DTaP,Tdap,Td Vaccine(1 - Tdap) Never done Hepatitis B Vaccine(1 of 3 - 19+ 3-dose series) Never done Pneumococcal Vaccine: 50+(1 of 2 - PCV) Never done Colorectal Cancer Screening Never done Shingrix Vaccine(1 of 2) Never done Influenza Vaccine(1) due on 04/09/2024 Covid-19 Vaccine( season) due on 04/09/2024 Annual PCP Team Chronic Disease Visit due on 09/09/2024 Prostate Cancer Screening Discussion due on 2024 Diabetes Screening due on 09/15/2026 Lipid Screening due on 03/03/2028 ASSESSMENT/PLAN: 1. Wellness examination - ICD9: V70.0, ICD10: Z00.00 (primary diagnosis) - Counseled on healthy diet and regular exercise - Colorectal cancer screening - ordered Cologuard - Risks/benefits of prostate cancer screening discussed. screening PSA ordered - Lung cancer screening - declined. Risks discussed. - Smoking cessation encouraged; discussed health risks and quitting strategies. Patient is not ready to quit - Follow up for annual exam in one year 2. Gastroesophageal reflux disease, unspecified whether esopha (more content not included)... Normal [facility] Comprehensive metabolic 2000 panelon 11-06-2024 Albumin [Mass/Vol] 3.9 g/dL Normal 3.9-4.9 [facility] Comment on above: Order Comment: Speci men Type: BLOOD SPECIMEN Ordering Facility: [facility] Address: [address] [place] [address] Performed By: #### 2 4323-8, 3083-1, , 2132-04 #### [facility] CLIA [id number] [address] [place] [address] [place] ALP [Catalytic activity/Vol] 102 U/L Normal 38-113 [facility] Comment on above: Order Comment: Speci men Type: BLOOD SPECIMEN Ordering Facility: [facility] Address: [address] [place] [address] Performed By: #### 2 4323-8, 3083-, , 2132-04 #### [facility] CLIA [id number] [address] [place], [place] [address] [place] ALT [Catalytic activity/Vol] 14 U/L Normal 10-54 [facility] Comment on above: Order Comment: Speci men Type: BLOOD SPECIMEN Ordering Facility: [facility] Address: [address] [place] [address] Performed By: #### 2 4323-8, 3083-1, , 2132-04 #### [facility] CLIA [id number] [address] [place], [place] [address] [place] Anion gap [Moles/Vol] 11 mmol/L Normal 8-15 [facility] Comment on above: Order Comment: Speci men Type: BLOOD SPECIMEN Ordering Facility: [facility] Address: [address] [place], [place] [address] Performed By: #### 2 4323-8, 3084-1, , 2132-04 #### [facility] CLIA [id number] [address] [place], [place] [address] [place] AST [Catalytic activity/Vol] 20 U/L Normal 14-40 [facility] Comment on above: Order Comment: Speci men Type: BLOOD SPECIMEN Ordering Facility: [facility] Address: [address] [place] [address] Performed By: #### 2 4323-8, 308-1, , 2132-04 #### [facility] CLIA [id number] [address] [place] [address] [place] Bilirubin [Mass/Vol] 0.2 mg/dL Normal 0.2-1.3 [facility] Comment on above: Order Comment: Speci men Type: BLOOD SPECIMEN Ordering Facility: [facility] Address: [address] [place] [address] Performed By: #### 2 4323-8, 3083-, , 2132-04 #### [facility] CLIA [id number] [address] [place] [address] [place] Calcium [Mass/Vol] 9.2 mg/dL Normal 8.5-10.2 [facility] Comment on above: Order Comment: Speci men Type: BLOOD SPECIMEN Ordering Facility: [facility] Address: [address] [place] [address] Performed By: #### 2 4323-8, 3083-08, , 2132-04 #### [facility] CLIA [id number] [address] [place], [place] [address] [place] Chloride [Moles/Vol] 108 mmol/L High 98-107 [facility] Comment on above: Order Comment: Speci men Type: BLOOD SPECIMEN Ordering Facility: [facility] Address: [address] [place] [address] Performed By: #### 2 4323-8, 308-1, , 2132-04 #### [facility] CLIA [id number] [address] [place] [address] [place] CO2 [Moles/Vol] 25 mmol/L Normal 22-30 [facility] Comment on above: Order Comment: Speci men Type: BLOOD SPECIMEN Ordering Facility: [facility] Address: [address] [place] [address] Performed By: #### 2 4323-8, 3084-1, , 2132-04 #### [facility] [facility] CLIA [id number] [address] [place] [address] [place] Creatinine [Mass/Vol] 0.66 mg/dL Low 0.73-1.22 [facility] Comment on above: Order Comment: Speci men Type: BLOOD SPECIMEN Ordering Facility: [facility] Address: [address] [place] [address] Performed By: #### 2 4323-8, 3083-08, , 2132-04 #### [facility] CLIA [id number] [address] [place] [address] [place] Creatinine and Glomerular filtration rate.predicted panel (S/P/Bld) 111 mL/min/1.73m??? Normal >=60 [facility] Comment on above: Order Comment: Speci men Type: BLOOD SPECIMEN Ordering Facility: [facility] Address: [address] [place] [address] Result Comment: Jaky mated Glomerular Filtration Rate (eGFR) is calculated using the 2020 CKD-EPI creatinine equation. This equation utilizes serum creatinine, sex, and age as parameters. The creatinine assay has traceable calibration to isotope dilution-mass spectrometry. Refer to KDIGO guidelines for clinical interpretation. In patients with unstable renal function, e.g. those with acute kidney injury, the eGFR may not accurately reflect actual GFR. Performed By: #### 2 4323-8, 3084-1, , 2132-04 #### [facility] CLIA [id number] [address] [place] [address] [place] Glucose [Mass/Vol] 116 mg/dL High 74-99 [facility] Comment on above: Order Comment: Donnie gonsales Type: BLOOD SPECIMEN Ordering Facility: [facility] Address: [address] [place] [address] Result Comment: The [place] Diabetes Association (ADA) provides guidance for cutoff values for fasting glucose and random glucose. The ADA defines fasting as no caloric intake for at least 8 hours. Fasting plasma glucose results between 100 to 125 mg/dL indicate increased risk for diabetes (prediabetes). Fasting plasma glucose results greater than or equal to 126 mg/dL meet the criteria for diagnosis of diabetes. In the absence of unequivocal hyperglycemia, results should be confirmed by repeat testing. In a patient with classic symptoms of hyperglycemia or hyperglycemic crisis, random plasma glucose results greater than or equal to 200 mg/dL meet the criteria for diagnosis of diabetes. Reference: Standards of Medical Care in Diabetes 2016, [place] Diabetes Association. Diabetes Care. 2016.39(Suppl 1). Performed By: #### 2 4323-8, 3083-, , 2132-04 #### [facility] CLIA [id number] [address] [place] [address] [place] Potassium [Moles/Vol] 4.1 mmol/L Normal 3.7-5.1 [facility] Comment on above: Order Comment: Donnie gonsales Type: BLOOD SPECIMEN Ordering Facility: [facility] Address: [address] [place], [place] [id number] Performed By: #### 2 4323-8, 30811-07, , 2132-04 #### [facility] CLIA [id number] [address] [place] [address] [place] Protein [Mass/Vol] 6.3 g/dL Normal 6.3-8.0 [facility] Comment on above: Order Comment: Donnie gonsales Type: BLOOD SPECIMEN Ordering Facility: [facility] Address: [address] [place], [place] [address] Performed By: #### 2 4323-8, 308-, , 2132-04 #### [facility] CLIA [id number] [address] [place] [address] [place] Sodium [Moles/Vol] 144 mmol/L Normal 136-144 [facility] Comment on above: Order Comment: Speci men Type: BLOOD SPECIMEN Ordering Facility: [facility] Address: [address] [place] [address] Performed By: #### 2 4323-8, 3084-1, , 2132-04 #### [facility] CLIA [id number] [address] [place] [address] [place] Urea nitrogen [Mass/Vol] 9 mg/dL Normal 9-24 [facility] Comment on above: Order Comment: Speci men Type: BLOOD SPECIMEN Ordering Facility: [facility] Address: [address] [place] [address] Performed By: #### 2 4323-8, 3084-1, , 2132-04 #### [facility] CLIA [id number] [address] [place] [address] [place] HCV Ab Ser Qlon 11-06-2024 HCV Ab Ql (S) Negative Normal Negative [facility] Comment on above: Order Comment: Speci men Type: BLOOD SPECIMEN Ordering Facility: [facility] Address: [address] [place] [address] Result Comment: The result suggests no evidence of infection with Hepatitis C virus. Should recent infection be suspected, repeat testing may be considered 4-6 weeks after this draw. Performed By: #### 1 6128-1 #### [facility] CLIA [id number] [address] [place] [address] [place] HIV 1+2 Ab IA Qlon HIV 1 and 2 Ab IA.rapid Nom (S/P/Bld) Normal [facility] Comment on above: Order Comment: Speci men Type: BLOOD SPECIMENOrdering Facility: [facility] Address: [address] [place] [address] Result Comment: Test not indicated. Performed By: #### 3 1201-7 ####[facility] [id number] [place] [address] [place] HIV 1+2 Ab+HIV1 p24 Ag IA Ql Non-Reactive Normal Nonreactive [facility] Comment on above: Order Comment: Speci men Type: BLOOD SPECIMENOrdering Facility: [facility] Address: [address] [place] [address] Performed By: #### 3 1201-7 ####[facility] [id number] [address] OF [place] HIV immunoassay testing algorithm interpretation (S/P/Bld) [Interp] Normal [facility] Comment on above: Order Comment: Speci men Type: BLOOD SPECIMENOrdering Facility: [facility] Address: [address] [place] [address] Result Comment: No e vidence of HIV-1 or HIV-2 infection. Should recent infection be suspected, repeat testing may be considered 2-3 weeks after this draw. [place] Rev. Code 3701.243(E): This information has been disclosed to you from confidential records protected from disclosure by state law. ???You shall make no further disclosure of this information without the specific, written, and informed release of the individual to whom it pertains or as otherwise permitted by state law. A general authorization for the release of medical or other information is not sufficient for the purpose of the release of HIV test results or diagnoses. Performed By: #### 3 1201-7 ####[facility] [id number] [place] [address] [place] HbA1c (Bld)on 11-06-2024 Average glucose Estimated from glycated hemoglobin (Bld) [Mass/Vol] 85 mg/dL Normal [facility] Comment on above: Order Comment: Speci men Type: BLOOD SPECIMEN Ordering Facility: [facility] Address: [address] [place] [address] Result Comment: eAG: (Estimated average glucose) is a calculated value from HgbA1c and is eligibility services representative of the average blood glucose level in the last 2-3 month period. Performed By: #### 5 5454-3 #### [facility] CLIA [id number] [address] [place] [address] [place] HbA1c (Bld) [Mass fraction] 4.6 % Normal 4.3-5.6 [facility] Comment on above: Order Comment: Speci men Type: BLOOD SPECIMEN Ordering Facility: [facility] Address: [address] [place] [address] Result Comment: [place] Diabetes Association guidelines indicate that patients with HgbA1c in the range 5.7-6.4% are at increased risk for development of diabetes, and intervention by lifestyle modification may be beneficial. HgbA1c greater or equal to 6.5% is considered diagnostic of diabetes. Performed By: #### 5 5454-3 #### [facility] CLIA [id number] [address] [place] [address] [place] Magnesium SerPl-mCncon 11-06 Magnesium [Mass/Vol] 1.0 mg/dL Low 1.7-2.3 [facility] Comment on above: Order Comment: Speci men Type: BLOOD SPECIMEN Ordering Facility: [facility] Address: [address] [place] [address] Performed By: #### 2 4323-8, 3084-1, 10149-8, 2132-9 #### [facility] CLIA [id number] [address] [place] [address] [place] PSA/PROSTATE SPECIFIC ANTIGE N SCREENINGon 11-06-2024 Prostate specific Ag [Mass/Vol] 0.83 ng/mL Normal <2.60 [facility] Comment on above: Order Comment: Speci men Type: BLOOD SPECIMEN Ordering Facility: [facility] Address: [address] [place] [address] Result Comment: Tota l PSA test methodology used is the Electrochemiluminescence Immunoassay by [employer]. Total PSA values by differing methodologies cannot be interchanged. Performed By: #### P SAS1 #### [facility] CLIA [id number] [address] [place] [address] [facility] [place] 5 Urate [Mass/Vol] 3.0 mg/dL Low 4.0-8.[address] [facility] Comment on above: Order Comment: Speci men Type: BLOOD SPECIMEN Ordering Facility: [facility] Address: [address] [place] [address] Performed By: #### 2 4323-8, 3084-1, , 2132-04 #### [facility] CLIA [id number] [address] [place] [address] [place] Vit B12 [facility] [place] 025 Cobalamin (Vitamin B12) [Mass/Vol] 290 pg/mL Normal 232-1245 [facility] Comment on above: Order Comment: Speci men Type: BLOOD SPECIMEN Ordering Facility: [facility] Address: [address] [place] [address] Performed By: #### 2 4323-8, 3084-1, , 2132-04 #### [facility] CLIA [id number] [address] [place] [address] OF [facility] Comprehensive metabolic 2000 panelon 06-08-2023 Albumin [Mass/Vol] 4.2 g/dL 3.9 - 4.9 g/dL [facility] ALP [Catalytic activity/Vol] 86 U/L 38 - 113 U/L [facility] ALT [Catalytic activity/Vol] 18 U/L 10 - 54 U/L [facility] Anion gap [Moles/Vol] 12 mmol/L 9 - 18 mmol/L [facility] AST [Catalytic activity/Vol] 23 U/L 14 - 40 U/L [facility] Bilirubin [Mass/Vol] 0.6 mg/dL 0.2 - 1 .3 mg/dL [facility] Calcium [Mass/Vol] 9.6 mg/dL 8.5 - 10. 2 mg/dL [facility] Chloride [Moles/Vol] 97 mmol/L 97 - 10 5 mmol/L [facility] CO2 [Moles/Vol] 26 mmol/L 22 - 30 mmol/L [facility] Creatinine [Mass/Vol] 0.81 mg/dL 0.73 - 1.22 mg/dL [facility] Estimated Glomerular Filtration Rate 105 mL/min/1.73m >=60 mL/min/1.73m [facility] Glucose [Mass/Vol] 114 mg/dL High 74 - 99 mg/dL [facility] Potassium [Moles/Vol] 4.1 mmol/L 3.7 - 5.1 mmol/L [facility] Protein [Mass/Vol] 6.6 g/dL 6.3 - 8.0 g/dL [facility] Sodium [Moles/Vol] 135 mmol/L Low 136 - 144 mmol/L [facility] Urea nitrogen [Mass/Vol] 11 mg/dL 9 - 24 mg/dL [facility] Comprehensive metabolic 2000 panelon 03-04-2023 Albumin [Mass/Vol] 4.1 g/dL 3.9 - 4.9 g/dL [facility] ALP [Catalytic activity/Vol] 85 U/L 38 - 113 U/L [facility] ALT [Catalytic activity/Vol] 17 U/L 10 - 54 U/L [facility] Anion gap [Moles/Vol] 9 mmol/L 9 - 18 mmol/L [facility] AST [Catalytic activity/Vol] 29 U/L 14 - 40 U/L [facility] Bilirubin [Mass/Vol] 0.3 mg/dL 0.2 - 1 .3 mg/dL [facility] Calcium [Mass/Vol] 9.4 mg/dL 8.5 - 10. 2 mg/dL [facility] Chloride [Moles/Vol] 102 mmol/L 97 - 10 5 mmol/L [facility] CO2 [Moles/Vol] 23 mmol/L 22 - 30 mmol/L [facility] Creatinine [Mass/Vol] 0.77 mg/dL 0.73 - 1.22 mg/dL [facility] Estimated Glomerular Filtration Rate 107 mL/min/1.73m >=60 mL/min/1.73m [facility] Glucose [Mass/Vol] 100 mg/dL High 74 - 99 mg/dL [facility] Potassium [Moles/Vol] 5.1 mmol/L 3.7 - 5.1 mmol/L [facility] Protein [Mass/Vol] 6.3 g/dL 6.3 - 8.0 g/dL [facility] Sodium [Moles/Vol] 134 mmol/L Low 136 - 144 mmol/L [facility] Urea nitrogen [Mass/Vol] 10 mg/dL 9 - 24 mg/dL [facility] LIPID PANEL, NONFASTINGon Cholesterol [Mass/Vol] 144 mg/dL <200 mg/dL Cl [facility] HDL Cholesterol, Nonfasting 74 mg/dL >39 mg/dL [facility] LDL Cholesterol, Nonfasting 60 mg/dL <100 mg/dL [facility] LDL/HDL Ratio, Nonfasting 0.81 mg/dL <2.54 mg/dL [facility] Non HDL Cholesterol, Nonfasting 70 mg/dL <130 mg/dL [facility] Total Chol/HDL Ratio, Nonfasting 1.95 mg/dL <5.10 mg/dL [facility] Triglycerides, Nonfasting 48 mg/dL <150 mg/dL [facility] VLDL Cholesterol, Nonfasting 10 mg/dL <30 mg/dL [facility] CBC W Auto Differential pane l (Bld)on 03-03-2023 Basophils (Bld) [#/Vol] 0.09 10*3/uL <0.11 k/uL [facility] Basophils/100 WBC (Bld) 1.0 % [facility] Differential cell count method Nom (Bld) Auto [facility] Eosinophils (Bld) [#/Vol] 0.25 10*3/uL <0.46 k/uL [facility] Eosinophils/100 WBC (Bld) 2.9 % [facility] Erythrocyte distribution width (RBC) [Ratio] 17.1 % High 11.5 - 15.0 % [facility] Hematocrit (Bld) [Volume fraction] 38.0 % Low 39.0 - 51.0 % [facility] Hemoglobin (Bld) [Mass/Vol] 12.1 g/dL Low 13.0 - 17.0 g/dL [facility] Immature granulocytes (Bld) [#/Vol] <0.10 k/uL [facility] Immature granulocytes/100 WBC (Bld) 0.2 % [facility] Lymphocytes (Bld) [#/Vol] 2.05 10*3/uL 1.00 - 4.00 k/uL [facility] Lymphocytes/100 WBC (Bld) 23.8 % [facility] MCH (RBC) [Entitic mass] 27.7 pg 26.0 - 34.0 pg [facility] MCHC (RBC) [Mass/Vol] 31.8 g/dL 30.5 - 36.0 g/dL [facility] MCV (RBC) [Entitic vol] 87.0 fL 80.0 - 100.0 fL [facility] Monocytes (Bld) [#/Vol] 0.87 10*3/uL High <0.87 k/uL [facility] Monocytes/100 WBC (Bld) 10.1 % C [facility] Neutrophils (Bld) [#/Vol] 5.35 10*3/uL 1.45 - 7.50 k/uL [facility] Neutrophils/100 WBC (Bld) 62.0 % [facility] Nucleated RBC (Bld) [#/Vol] <0.01 k/uL [facility] Nucleated RBC/100 WBC (Bld) [Ratio] 0.0 /100 WBC [facility] Platelet mean volume (Bld) [Entitic vol] 8.8 fL Low 9.0 - 12.7 fL [facility] Platelets (Bld) [#/Vol] 420 10*3/uL High 150 - 400 k/uL [facility] RBC (Bld) [#/Vol] 4.37 10*6/uL 4.20 - 6.0 0 m/uL [facility] WBC (Bld) [#/Vol] 8.63 10*3/uL 3.70 - 11. 00 k/uL [facility] Orthopedic Visit Reporton Orthopedic Visit Report [facility] [address] [place] [address] OFFICE VISIT Date of Service: 12/07/22 MR#: [id number] Acct: [id number] Name: HANSEL LOVE Jr. Rep #: [id number] : 1970 Provider: JUAN Song Age/Sex: 52/M Location: [facility].[place] Status: Signed Intake Vital Signs 11/18/22 11:40 Height 5 ft 9 in Intake Visit Reasons: RIGHT SHOULDER Is patient in pain?: Yes Allergies Penicillins Allergy (Verified 12/07/22 10:00) Unknown fluoxetine [From Prozac] Adverse Reaction (Verified 12/07/22 10:00) Other Medications finasteride 5 mg tablet 5 mg PO DAILY #30 tabs 06/20/17 [Rx Confirmed 12/07/22] tamsulosin 0.4 mg capsule 0.4 mg PO DAILY@1730 PROSTATE 06/29/17 [History Confirmed 12/07/22] vitamin B12 500 mcg-folic acid 400 mcg tablet 1 tab PO QDAY supplement 01/04/18 [History Confirmed 12/07/22] pantoprazole 40 mg tablet,delayed release 40 mg PO BID #60 tabs 11/13/22 [Rx Confirmed 12/07/22] sucralfate 1 gram tablet 1 g PO Q6H #120 tabs 11/13/22 [Rx Confirmed 12/07/22] allopurinol 300 mg tablet 300 ea PO DAILY gout 11/17/22 [History Confirmed 12/07/22] amlodipine 10 mg tablet 10 mg PO DAILY BP 11/17/22 [History Confirmed 12/07/22] calcium citrate 200 mg (950 mg) tablet 400 mg PO BID 30 days #120 tabs 11/19/22 [Rx Confirmed 12/07/22] magnesium oxide 400 mg (241.3 mg magnesium) tablet 800 mg PO BIDCM SUPPLEMENT 30 days #120 tabs 11/19/22 [Rx Confirmed 12/07/22] PFSH Medical History Acute encephalopathy Alcohol abuse, daily use Depression GERD (gastroesophageal reflux disease) HTN (hypertension) Perianal abscess Serotonin syndrome Serotonin syndrome Smoker Urinary retention due to benign prostatic hyperplasia Surgical History S/P right knee arthroscopy S/P tonsillectomy Family History Sister Diabetes Heart disease Mother CAD (coronary artery disease) Social History Smoking Status: Current every day smoker tobacco type: cigarettes alcohol intake: current alcohol intake frequency: holidays/special occasions only HPI RIGHT SHOULDER Details: Parts of this documentation were recorded by a scribe, this documentation accurately reflects the service provided and the decisions made by , JUAN Cote 12/07/22 0955. HANSEL LOVE is a 52 year old M here today for a followup on his right shoulder. Patient states that he was very sick around [facility] and went into septic shock, and was in the ICU for a week. He states that he fell about a week before he got sick. He had an injection on 09/14/22 which was helpful. He did not have an MRI due to never hearing anything. Patient has decreased shoulder range of motion. He denies any numbness or tingling. Patient denies any pain medications as nothing helps. Ortho Exam General General: Yes no acute distress Neurologic: Yes alert and Yes oriented x3 Psychologic: Yes reasonable and appropriate Right Shoulder Skin/Wound: No ecchymosis, No erythema and No swelling Testing: Positive Hawkin's, Neer's, empty can and lift off; Negative Speed's, TTP Biceps, TTP AC Joint, Drop Arm, AROM-Forward Elevation 0-180, Apprehension Test or Sulcus Sign Internal Rotation: L2 SHOULDER: Inspection again today shows no acute or gross abnormalities. Patient has no ecchymosis/bruising, erythema, or other skin changes. There is no obvious areas of localized generalized swelling. Overall patient has good forward elevation pretty symmetric to the left side with approximately 160 degrees of forward elevation which again is similar to the left shoulder. He does have some decrease in abduction today approximately 120 degrees before he stops. I do think he could continue however states it hurts after that point pretty bad never sooner. Patient does have very obvious positive impingement signs both Moses and Neer's. He is able to perform liftoff test today. There is some discomfort as well as some mild weakness during empty can same time he does have a negative drop arm. Patient does not have any reproducible tenderness over the biceps today. He does have a negative speeds. He has compartments throughout the upper extremity. He has normal distal radial pulse with capillary refill. Coding Level of Care Code Off vis,est,level 3 Diagnoses Impingement syndrome of right shoulder M75.41 Assessment and Plan Assessment and Plan (1) Impingement syndrome of right shoulder: Status: Acute Orders: Orders Upper Ext Joint Only(Routine) Today M75.41 - Impingement syndrome of right shoulder Plan Patient presents the office today with continued right shoulder pain. Patient (more content not included)... Normal [facility] L7000.0750on 12-04-2022 P ELASTASE,FECA 397 Normal >[address] [facility] Comment on above: Result Comment: Resu lt Units: ug Elast./g Severe Pancreatic Insufficiency: <100 Moderate Pancreatic Insufficiency: 100 - 200 Normal: >200 Performed By: #### M 100.0605, L7000.0700, L7000.0750 #### [facility] [address] [place], [place], [id number] Calprotectin, Stoolon [address] 44 ug/g Normal 0-[address] [facility] Comment on above: Result Comment: Conc entration Interpretation Follow-Up <16 - 50 ug/g Normal None >50 -120 ug/g Borderline Re-evaluate in 4-6 weeks >120 ug/g Abnormal Repeat as clinically indicated Performed at: - [facility] [id number] Performance Engineer: Edmundo Panda MD, Phone: [phone] Performed By: #### M 100.0605, L7000.0700, L7000.0750 #### [facility] [address] [place], [place], [id number] Basophil percentageOrdered B y: Renetta Castro on 11-24-2022 Bilirubin [Mass/Vol] 0.20 mg/dL 0.20-1.00 [facility] Comment on above: For patients on eltr ombopag therapy, use of Dimension Bowman TBIL is not recommended. Chloride [Moles/Vol] 107 mmol/L 98-107 [facility] Glucose [Mass/Vol] 82 mg/dL 74-106 [facility] Potassium [Moles/Vol] 4.2 mmol/L 3.5-5.1 [facility] Protein [Mass/Vol] 6.7 g/dL 6.4-8.2 [facility] Sodium [Moles/Vol] 136 mmol/L 136-145 [facility] WBC (Bld) [#/Vol] 8.2 10*3/uL 4.4-11.0 [facility] Blood erythrocytes count (nu mber/volume)Ordered By: Renetta Castro on 11-24-2022 RBC (Bld) [#/Vol] 3.24 10*6/uL 4.6-6.2 [facility] Blood hemoglobin measurement (mass/volume)Ordered By: Renetta Castro on 11-24-2022 Hemoglobin (Bld) [Mass/Vol] 10.7 g/dL 13.0-16.[address] [facility] Blood platelet mean volumeOr dered By: Renetta Castro on 11-24-2022 Platelet mean volume (Bld) [Entitic vol] 9.2 fL 6.2-12.[address] [facility] CBC W/Diff, Automatedon 11-07 Absolute Neut Normal 2.0-7.[address] [facility] Comment on above: Result Comment: Canc elled via OM: Order cancelled - Patient discharged Performed By: #### M 100.0605, L7000.0700, L7000.0750 #### [facility] [address] [facility] [address] HCT Normal 40-[address] [facility] Comment on above: Result Comment: Canc elled via OM: Order cancelled - Patient discharged Performed By: #### M 100.0605, L7000.0700, L7000.0750 #### [facility] [address] [facility] [address] HGB Normal 13.0-16.[address] [facility] Comment on above: Result Comment: Canc elled via OM: Order cancelled - Patient discharged Performed By: #### M 100.0605, L7000.0700, L7000.0750 #### [facility] [address] [facility] [address] MCH Normal 27.0-32.[address] [facility] Comment on above: Result Comment: Canc elled via OM: Order cancelled - Patient discharged Performed By: #### M 100.0605, L7000.0700, L7000.0750 #### [facility] [address] [place], [address] MCHC Normal 32-[address] [facility] Comment on above: Result Comment: Canc elled via OM: Order cancelled - Patient discharged Performed By: #### M 100.0605, L7000.0700, L7000.0750 #### [facility] [address] [place], [address] MCV Normal 80-[address] [facility] Comment on above: Result Comment: Canc elled via OM: Order cancelled - Patient discharged Performed By: #### M 100.0605, L7000.0700, L7000.0750 #### [facility] [address] [place], [address] NEUT% Normal 47-[address] [facility] Comment on above: Result Comment: Canc elled via OM: Order cancelled - Patient discharged Performed By: #### M 100.0605, L7000.0700, L7000.0750 #### [facility] [address] [place], [address] PLT Normal 150-[address] [facility] Comment on above: Result Comment: Canc elled via OM: Order cancelled - Patient discharged Performed By: #### M 100.0605, L7000.0700, L7000.0750 #### [facility] [address] [place], [address] RBC Normal 4.6-6.[address] [facility] Comment on above: Result Comment: Canc elled via OM: Order cancelled - Patient discharged Performed By: #### M 100.0605, L7000.0700, L7000.0750 #### [facility] [address] [place], [address] RDW CV Normal 11.6-14.[address] [facility] Comment on above: Result Comment: Canc elled via OM: Order cancelled - Patient discharged Performed By: #### M 100.0605, L7000.0700, L7000.0750 #### [facility] [address] [place], [address] RDW SD Normal 35.1-43.[address] [facility] Comment on above: Result Comment: Canc elled via OM: Order cancelled - Patient discharged Performed By: #### M 100.0605, L7000.0700, L7000.0750 #### [facility] [address] [place], [address] WBC Normal 4.4-11.[address] [facility] Comment on above: Result Comment: Canc elled via OM: Order cancelled - Patient discharged Performed By: #### M 100.0605, L7000.0700, L7000.0750 #### [facility] [address] [place], [address] CBC-Complete [facility] Erythrocyte distribution width (RBC) [Ratio] 13.3 % Normal 11.6-14.[address] [facility] Comment on above: Order Comment: Order Date: 11/24/22Order Info: [id number] - CBC Performed By: #### M 100.0605, L7000.0700, L7000.0750 #### [facility] [address] [place], [address] Hematocrit (Bld) [Volume fraction] 33.4 % Low 40-[address] [facility] Comment on above: Order Comment: Order Date: 11/24/22Order Info: [id number] - CBC Performed By: #### M 100.0605, L7000.0700, L7000.0750 #### [facility] [address] [place], [address] Hemoglobin (Bld) [Mass/Vol] 10.7 g/dL Low 13.0-16.[address] [facility] Comment on above: Order Comment: Order Date: 11/24/22Order Info: [id number] - CBC Performed By: #### M 100.0605, L7000.0700, L7000.0750 #### [facility] [address] [place], [address] MCH (RBC) [Entitic mass] 33.0 pg High 27.0-32.[address] [facility] Comment on above: Order Comment: Order Date: 11/24/22Order Info: [id number] - CBC Performed By: #### M 100.0605, L7000.0700, L7000.0750 #### [facility] [address] [place], [address] MCHC (RBC) [Mass/Vol] 32.0 g/dL Normal 32-36 [facility] Comment on above: Order Comment: Order Date: 11/24/22Order Info: [id number] - CBC Performed By: #### M 100.0605, L7000.0700, L7000.0750 #### [facility] [address] [place], [address] MCV (RBC) [Entitic vol] 103.1 fL High 80-94 [facility] Comment on above: Order Comment: Order Date: 11/24/22Order Info: [id number] - CBC Performed By: #### M 100.0605, L7000.0700, L7000.0750 #### [facility] [address] [place], [address] Platelet mean volume (Bld) [Entitic vol] 9.2 fL Normal 6.2-12.[address] [facility] Comment on above: Order Comment: Order Date: 11/24/22Order Info: [id number] - CBC Performed By: #### M 100.0605, L7000.0700, L7000.0750 #### [facility] [address] [place], [address] Platelets (Bld) [#/Vol] 637 10*3/uL High 150-[address] [facility] Comment on above: Order Comment: Order Date: 11/24/22Order Info: [id number] - CBC Performed By: #### M 100.0605, L7000.0700, L7000.0750 #### [facility] [address] [place], [address] RBC (Bld) [#/Vol] 3.24 10*6/uL Low 4.6-6.2 [facility] Comment on above: Order Comment: Order Date: 11/24/22Order Info: [id number] - CBC Performed By: #### M 100.0605, L7000.0700, L7000.0750 #### [facility] [address] [place], [address] RDW SD 50.6 fl High 35.1-43.[address] [facility] Comment on above: Order Comment: Order Date: 11/24/22Order Info: [id number] - CBC Performed By: #### M 100.0605, L7000.0700, L7000.0750 #### [facility] [address] [place], [address] WBC (Bld) [#/Vol] 8.2 10*3/uL Normal 4.4-11.0 [facility] Comment on above: Order Comment: Order Date: 11/24/22Order Info: [id number] - CBC Performed By: #### M 100.0605, L7000.0700, L7000.0750 #### [facility] [address] [place], [address] Comprehensive Metabolic Prof ilon 11-24-2022 Albumin [Mass/Vol] 3.4 g/dL Normal 3.2-5.0 [facility] Comment on above: Order Comment: Order Date: 11/24/22Order Info: [id number] - CMPOrder Info: [id number] - MG Performed By: #### M 100.0605, L7000.0700, L7000.0750 #### [facility] [address] [place], [address] Albumin/Globulin [Mass ratio] 1.0 {ratio} Normal 0.9-2.[address] [facility] Comment on above: Order Comment: Order Date: 11/24/22Order Info: [id number] - CMPOrder Info: [id number] - MG Performed By: #### M 100.0605, L7000.0700, L7000.0750 #### [facility] [address] [place], [address] ALK P 102 U/L Normal 45-[address] [facility] Comment on above: Order Comment: Order Date: 11/24/22Order Info: [id number] - CMPOrder Info: [id number] - MG Performed By: #### M 100.0605, L7000.0700, L7000.0750 #### [facility] [address] [place], [address] ALT [Catalytic activity/Vol] 23 U/L Normal 16-[address] [facility] Comment on above: Order Comment: Order Date: 11/24/22Order Info: [id number] - CMPOrder Info: [id number] - MG Performed By: #### M 100.0605, L7000.0700, L7000.0750 #### [facility] [address] [place], [address] AST [Catalytic activity/Vol] 18 U/L Normal 15-[address] [facility] Comment on above: Order Comment: Order Date: 11/24/22Order Info: [id number] - CMPOrder Info: [id number] - MG Performed By: #### M 100.0605, L7000.0700, L7000.0750 #### [facility] [address] [place], [address] Bilirubin [Mass/Vol] 0.20 mg/dL Normal 0.20-1.00 [facility] Comment on above: Order Comment: Order Date: 11/24/22Order Info: [id number] - CMPOrder Info: [id number] - MG Result Comment: For patients on eltrombopag therapy, use of Dimension Bowman TBIL is not recommended. Performed By: #### M 100.0605, L7000.0700, L7000.0750 #### [facility] [address] [place], [address] BUN/CRE 17.5 RATIO Normal 10-[address] [facility] Comment on above: Order Comment: Order Date: 11/24/22Order Info: [id number] - CMPOrder Info: [id number] - MG Performed By: #### M 100.0605, L7000.0700, L7000.0750 #### [facility] [address] [place], [address] CA,Total 8.8 mg/dL Normal 8.5-10.[address] [facility] Comment on above: Order Comment: Order Date: 11/24/22Order Info: [id number] - CMPOrder Info: [id number] - MG Performed By: #### M 100.0605, L7000.0700, L7000.0750 #### [facility] [address] [place], [address] Chloride [Moles/Vol] 107 mmol/L Normal 98-107 [facility] Comment on above: Order Comment: Order Date: 11/24/22Order Info: [id number] - CMPOrder Info: [id number] - MG Performed By: #### M 100.0605, L7000.0700, L7000.0750 #### [facility] [address] [place], [address] CO2 [Moles/Vol] 25.0 mmol/L Normal 21.0-32.[address] [facility] Comment on above: Order Comment: Order Date: 11/24/22Order Info: [id number] - CMPOrder Info: [id number] - MG Performed By: #### M 100.0605, L7000.0700, L7000.0750 #### [facility] [address] [place], [address] Creatinine [Mass/Vol] 0.74 mg/dL Normal 0.70-1.30 [facility] Comment on above: Order Comment: Order Date: 11/24/22Order Info: [id number] - CMPOrder Info: [id number] - MG Result Comment: The validity of the calculated GFR GFRAA in patients over 70 years has not been determined. Clinical correlation is essential. Performed By: #### M 100.0605, L7000.0700, L7000.0750 #### [facility] [address] [place], [address] EST GFR - AA 142 mL/min Normal >[address] [facility] Comment on above: Order Comment: Order Date: 11/24/22Order Info: [id number] - CMPOrder Info: [id number] - MG Result Comment: Afri can Lao GFR Calc Performed By: #### M 100.0605, L7000.0700, L7000.0750 #### [facility] [address] [place], [address] GAP 4 Low 5-[address] [facility] Comment on above: Order Comment: Order Date: 11/24/22Order Info: [id number] - CMPOrder Info: [id number] - MG Performed By: #### M 100.0605, L7000.0700, L7000.0750 #### [facility] [address] [place], [address] GFR/1.73 sq M.predicted among non-blacks MDRD (S/P/Bld) [Vol rate/Area] 117 mL/min/{1.73_m2} Normal >[address] [facility] Comment on above: Order Comment: Order Date: 11/24/22Order Info: [id number] - CMPOrder Info: [id number] - MG Result Comment: Non- GFR Calc Performed By: #### M 100.0605, L7000.0700, L7000.0750 #### [facility] [address] [place], [address] Globulin (S) [Mass/Vol] 3.3 g/dL Normal 2.2-4.2 [facility] Comment on above: Order Comment: Order Date: 11/24/22Order Info: [id number] - CMPOrder Info: [id number] - MG Performed By: #### M 100.0605, L7000.0700, L7000.0750 #### [facility] [address] [place], [address] Glucose [Mass/Vol] 82 mg/dL Normal 74-106 [facility] Comment on above: Order Comment: Order Date: 11/24/22Order Info: [id number] - CMPOrder Info: [id number] - MG Performed By: #### M 100.0605, L7000.0700, L7000.0750 #### [facility] [address] [place], [address] Potassium [Moles/Vol] 4.2 mmol/L Normal 3.5-5.1 [facility] Comment on above: Order Comment: Order Date: 11/24/22Order Info: [id number] - CMPOrder Info: [id number] - MG Performed By: #### M 100.0605, L7000.0700, L7000.0750 #### [facility] [address] [place], [address] Sodium [Moles/Vol] 136 mmol/L Normal 136-145 [facility] Comment on above: Order Comment: Order Date: 11/24/22Order Info: [id number] - CMPOrder Info: [id number] - MG Performed By: #### M 100.0605, L7000.0700, L7000.0750 #### [facility] [address] [place], [address] T PROT 6.7 g/dL Normal 6.4-8.[address] [facility] Comment on above: Order Comment: Order Date: 11/24/22Order Info: [id number] - CMPOrder Info: [id number] - MG Performed By: #### M 100.0605, L7000.0700, L7000.0750 #### [facility] [address] [place], [address] Urea nitrogen [Mass/Vol] 13 mg/dL Normal 7-[address] [facility] Comment on above: Order Comment: Order Date: 11/24/22Order Info: [id number] - CMPOrder Info: [id number] - MG Performed By: #### M 100.0605, L7000.0700, L7000.0750 #### [facility] [address] [place], [address] ALB Normal 3.2-5.[address] [facility] Comment on above: Result Comment: Canc elled via OM: Order cancelled - Patient discharged Performed By: #### L 500.4050 #### [facility] [address] [place], [address] ALK P Normal 45-[address] [facility] Comment on above: Result Comment: Canc elled via OM: Order cancelled - Patient discharged Performed By: #### L 500.4050 #### [facility] [address] [place], [address] ALT Normal 16-[address] [facility] Comment on above: Result Comment: Canc elled via OM: Order cancelled - Patient discharged Performed By: #### L 500.4050 #### [facility] [address] [place], [address] AST Normal 15-[address] [facility] Comment on above: Result Comment: Canc elled via OM: Order cancelled - Patient discharged Performed By: #### L 500.4050 #### [facility] [address] [place], [address] BUN Normal 7-[address] [facility] Comment on above: Result Comment: Canc elled via OM: Order cancelled - Patient discharged Performed By: #### L 500.4050 #### [facility] [address] [place], [address] BUN/CRE Normal 10-[address] [facility] Comment on above: Result Comment: Canc elled via OM: Order cancelled - Patient discharged Performed By: #### L 500.4050 #### [facility] [address] [place], [address] CA,Total Normal 8.5-10.[address] [facility] Comment on above: Result Comment: Canc elled via OM: Order cancelled - Patient discharged Performed By: #### L 500.4050 #### [facility] [address] [place], [address] CL Normal 98-[address] [facility] Comment on above: Result Comment: Canc elled via OM: Order cancelled - Patient discharged Performed By: #### L 500.4050 #### [facility] [address] [place], [address] CO2 Normal 21.0-32.[address] [facility] Comment on above: Result Comment: Canc elled via OM: Order cancelled - Patient discharged Performed By: #### L 500.4050 #### [facility] [address] [place], [address] CREAT,SERUM Normal 0.70-1.[address] [facility] Comment on above: Result Comment: Canc elled via OM: Order cancelled - Patient discharged Performed By: #### L 500.4050 #### [facility] [address] [place], [address] EST GFR Normal >[address] [facility] Comment on above: Result Comment: Canc elled via OM: Order cancelled - Patient discharged Performed By: #### L 500.4050 #### [facility] [address] [place], [address] EST GFR - AA Normal >[address] [facility] Comment on above: Result Comment: Canc elled via OM: Order cancelled - Patient discharged Performed By: #### L 500.4050 #### [facility] [address] [place], [address] GAP Normal 5-[address] [facility] Comment on above: Result Comment: Canc elled via OM: Order cancelled - Patient discharged Performed By: #### L 500.4050 #### [facility] [address] [place], [address] GLU Normal 74-[address] [facility] Comment on above: Result Comment: Canc elled via OM: Order cancelled - Patient discharged Performed By: #### L 500.4050 #### [facility] [address] [place], [address] Potassium Normal 3.5-5.[address] [facility] Comment on above: Result Comment: Canc elled via OM: Order cancelled - Patient discharged Performed By: #### L 500.4050 #### [facility] [address] [place], [address] T BILI Normal 0.20-1.[address] [facility] Comment on above: Result Comment: Canc elled via OM: Order cancelled - Patient discharged Performed By: #### L 500.4050 #### [facility] [address] [place], [address] T PROT Normal 6.4-8.[address] [facility] Comment on above: Result Comment: Canc elled via OM: Order cancelled - Patient discharged Performed By: #### L 500.4050 #### [facility] [address] [place], [address] Comprehensive Metabolic Profil Normal 136-[address] [facility] Comment on above: Result Comment: Canc elled via OM: Order cancelled - Patient discharged Performed By: #### L 500.4050 #### [facility] [address] [place], [address] Determination of erythrocyte mean corpuscular volume (MCV)Ordered By: Renetta Castro on 11-24-2022 MCV (RBC) [Entitic vol] 103.1 fL 80-94 [facility] Hematocrit Auto (Bld) [Volum e fraction]Ordered By: Renetta Castro on 11-24-2022 Hematocrit (Bld) [Volume fraction] 33.4 % 40-[address] [facility] - Chemistry and C hemistry - challengeOrdered By: Renetta Castro on 11-24-2022 ALP [Catalytic activity/Vol] 102 U/L 45-[address] [facility] ALT [Catalytic activity/Vol] 23 U/L 16-[address] [facility] CO2 [Moles/Vol] 25.0 mmol/L 21.0-32.[address] [facility] Globulin (S) [Mass/Vol] 3.3 g/dL 2.2-4.2 [facility] Magnesium [Mass/Vol] 1.2 mg/dL 1.6-2.6 [facility] Urea nitrogen/Creatinine [Mass ratio] 17.5 mg/mg 10-[address] [facility] - Hematology and Cell countsOrdered By: Renetta Castro on 11-24-2022 Erythrocyte distribution width (RBC) [Entitic vol] 50.6 fL 35.1-43.[address] [facility] Erythrocyte distribution width (RBC) [Ratio] 13.3 % 11.6-14.[address] [facility] MCH (RBC) [Entitic mass] 33.0 pg 27.0-32.[address] [facility] MCHC Auto (RBC) [Mass/Vol]Or dered By: Renetta Castro on 11-24-2022 MCHC (RBC) [Mass/Vol] 32.0 g/dL 32-36 [facility] Magnesiumon 11-24-2022 Magnesium [Mass/Vol] 1.2 mg/dL Low 1.6-2.6 [facility] Comment on above: Order Comment: Order Date: 11/24/22Order Info: [id number] - CMPOrder Info: [id number] - MG Performed By: #### M 100.0605, L7000.0700, L7000.0750 #### [facility] [address] [place], [address] No Panel InformationOrdered By: Renetta Castro on 11-24-2022 Estimated GFR (MDRD) Amer 142 mL/min >[address] [facility] Comment on above: GFR Calc Estimated GFR (MDRD) Non-Af Amer 117 mL/min >[address] [facility] Comment on above: Non- GFR Calc Platelets bldOrdered By: Zoltan Castro on 11-24-2022 Platelets (Bld) [#/Vol] 637 10*3/uL 150-[address] [facility] Serum or plasma albumin christy urement (mass/volume)Ordered By: Renetta Castro on 11-24-2022 Albumin [Mass/Vol] 3.4 g/dL 3.2-5.0 [facility] Serum or plasma albumin/glob ulin mass ratioOrdered By: Renetta Castro on 11-24-2022 Albumin/Globulin [Mass ratio] 1.0 {ratio} 0.9-2.[address] [facility] Serum or plasma calcium christy urement (mass/volume)Ordered By: Renetta Castro on 11-24-2022 Calcium [Mass/Vol] 8.8 mg/dL 8.5-10.1 [facility] Serum or plasma creatinine m easurement (mass/volume)Ordered By: Renetta Castro on 11-24-2022 Creatinine [Mass/Vol] 0.74 mg/dL 0.70-1.30 [facility] Comment on above: The validity of the calculated GFR & GFRAA in patients over 70 years has not been determined. Clinical correlation is essential. Serum or plasma urea nitroge n measurement (mass/volume)Ordered By: Renetta Castro on 11-24-2022 Urea nitrogen [Mass/Vol] 13 mg/dL -[address] [facility] Thin prep Papanicolaou smear with manual screeningOrdered By: Renetta Castro on 11-24-2022 Thin prep Papanicolaou smear with manual screening 18 U/L 15-[address] [facility] Thin prep Papanicolaou smear with manual screening 4 5-[address] [facility] CBC W/Diff, Automatedon 04- Absolute Neut Normal 2.0-7.[address] [facility] Comment on above: Result Comment: Canc elled via OM: Order cancelled - Patient discharged Performed By: #### L 100.0100 #### [facility] [address] [place], [address] HCT Normal 40-[address] [facility] Comment on above: Result Comment: Canc elled via OM: Order cancelled - Patient discharged Performed By: #### L 100.0100 #### [facility] [address] [place], [address] HGB Normal 13.0-16.[address] [facility] Comment on above: Result Comment: Canc elled via OM: Order cancelled - Patient discharged Performed By: #### L 100.0100 #### [facility] [address] [place], [address] MCH Normal 27.0-32.[address] [facility] Comment on above: Result Comment: Canc elled via OM: Order cancelled - Patient discharged Performed By: #### L 100.0100 #### [facility] [address] [place], [address] MCHC Normal 32-[address] [facility] Comment on above: Result Comment: Canc elled via OM: Order cancelled - Patient discharged Performed By: #### L 100.0100 #### [facility] [address] [place], [address] MCV Normal 80-[address] [facility] Comment on above: Result Comment: Canc elled via OM: Order cancelled - Patient discharged Performed By: #### L 100.0100 #### [facility] [address] [place], [address] NEUT% Normal 47-[address] [facility] Comment on above: Result Comment: Canc elled via OM: Order cancelled - Patient discharged Performed By: #### L 100.0100 #### [facility] [address] [place], [address] PLT Normal 150-[address] [facility] Comment on above: Result Comment: Canc elled via OM: Order cancelled - Patient discharged Performed By: #### L 100.0100 #### [facility] [address] [place], [address] RBC Normal 4.6-6.[address] [facility] Comment on above: Result Comment: Canc elled via OM: Order cancelled - Patient discharged Performed By: #### L 100.0100 #### [facility] [address] [place], [address] RDW CV Normal 11.6-14.[address] [facility] Comment on above: Result Comment: Canc elled via OM: Order cancelled - Patient discharged Performed By: #### L 100.0100 #### [facility] [address] [place], [address] RDW SD Normal 35.1-43.[address] [facility] Comment on above: Result Comment: Canc elled via OM: Order cancelled - Patient discharged Performed By: #### L 100.0100 #### [facility] [address] [place], [address] WBC Normal 4.4-11.[address] [facility] Comment on above: Result Comment: Canc elled via OM: Order cancelled - Patient discharged Performed By: #### L 100.0100 #### [facility] [address] [place], [address] Comprehensive Metabolic Prof ilon 11-23-2022 ALB Normal 3.2-5.[address] [facility] Comment on above: Result Comment: Canc elled via OM: Order cancelled - Patient discharged Performed By: #### L 500.4050 #### [facility] [address] [place], [address] ALK P Normal 45-[address] [facility] Comment on above: Result Comment: Canc elled via OM: Order cancelled - Patient discharged Performed By: #### L 500.4050 #### [facility] [address] [place], [address] ALT Normal 16-[address] [facility] Comment on above: Result Comment: Canc elled via OM: Order cancelled - Patient discharged Performed By: #### L 500.4050 #### [facility] [address] [place], [address] AST Normal 15-[address] [facility] Comment on above: Result Comment: Canc elled via OM: Order cancelled - Patient discharged Performed By: #### L 500.4050 #### [facility] [address] [place], [address] BUN Normal 7-[address] [facility] Comment on above: Result Comment: Canc elled via OM: Order cancelled - Patient discharged Performed By: #### L 500.4050 #### [facility] [address] [place], [address] BUN/CRE Normal 10-[address] [facility] Comment on above: Result Comment: Canc elled via OM: Order cancelled - Patient discharged Performed By: #### L 500.4050 #### [facility] [address] [place], [address] CA,Total Normal 8.5-10.[address] [facility] Comment on above: Result Comment: Canc elled via OM: Order cancelled - Patient discharged Performed By: #### L 500.4050 #### [facility] [address] [place], [address] CL Normal 98-[address] [facility] Comment on above: Result Comment: Canc elled via OM: Order cancelled - Patient discharged Performed By: #### L 500.4050 #### [facility] [address] [place], [address] CO2 Normal 21.0-32.[address] [facility] Comment on above: Result Comment: Canc elled via OM: Order cancelled - Patient discharged Performed By: #### L 500.4050 #### [facility] [address] [place], [address] CREAT,SERUM Normal 0.70-1.[address] [facility] Comment on above: Result Comment: Canc elled via OM: Order cancelled - Patient discharged Performed By: #### L 500.4050 #### [facility] [address] [place], [address] EST GFR Normal >[address] [facility] Comment on above: Result Comment: Canc elled via OM: Order cancelled - Patient discharged Performed By: #### L 500.4050 #### [facility] [address] [place], [address] EST GFR - AA Normal >[address] [facility] Comment on above: Result Comment: Canc elled via OM: Order cancelled - Patient discharged Performed By: #### L 500.4050 #### [facility] [address] [place], [address] GAP Normal 5-[address] [facility] Comment on above: Result Comment: Canc elled via OM: Order cancelled - Patient discharged Performed By: #### L 500.4050 #### [facility] [address] [place], [address] GLU Normal 74-[address] [facility] Comment on above: Result Comment: Canc elled via OM: Order cancelled - Patient discharged Performed By: #### L 500.4050 #### [facility] [address] [place], [address] Potassium Normal 3.5-5.[address] [facility] Comment on above: Result Comment: Canc elled via OM: Order cancelled - Patient discharged Performed By: #### L 500.4050 #### [facility] [address] [place], [address] T BILI Normal 0.20-1.[address] [facility] Comment on above: Result Comment: Canc elled via OM: Order cancelled - Patient discharged Performed By: #### L 500.4050 #### [facility] [address] [place], [address] T PROT Normal 6.4-8.[address] [facility] Comment on above: Result Comment: Canc elled via OM: Order cancelled - Patient discharged Performed By: #### L 500.4050 #### [facility] [address] [place], [address] Comprehensive Metabolic Profil Normal 136-[address] [facility] Comment on above: Result Comment: Canc elled via OM: Order cancelled - Patient discharged Performed By: #### L 500.4050 #### [facility] [address] [place], [address] No Panel InformationOrdered By: Gino Friend on 11-23-2022 Stool Calprotectin 44 ug/g 0-120 [facility] Comment on above: Concentration Interp retation Follow-Up<16 - 50 ug/g Normal None>50 -120 ug/g Borderline Re-evaluate in 4-6 weeks >120 ug/g Abnormal Repeat as clinically indicatedPerformed at: - [facility] [id number] Director: Edmundo Panda MD, Phone: [phone] Stool Lactoferrin/WBCon 11-07 WBCST Normal Reference Ran ge = Negative Fecal WBC Lactoferrin Negative: No Fecal WBC Lactoferrin present Normal [facility] Comment on above: Performed By: #### M 100.0605, L7000.0700, L7000.0750 #### [facility] [address] [place], [address] Stool lactoferrin detection by immunoassayOrdered By: Gino Briscoe on 11-23-2022 Lactoferrin IA Ql (Stl) [facility] CBC W/Diff, Automatedon 11-07 Absolute Neut Normal 2.0-7.[address] [facility] Comment on above: Result Comment: Canc elled via OM: Order cancelled - Patient discharged Performed By: #### L 100.0100 #### [facility] [address] [place], [address] HCT Normal 40-[address] [facility] Comment on above: Result Comment: Canc elled via OM: Order cancelled - Patient discharged Performed By: #### L 100.0100 #### [facility] [address] [place], [address] HGB Normal 13.0-16.[address] [facility] Comment on above: Result Comment: Canc elled via OM: Order cancelled - Patient discharged Performed By: #### L 100.0100 #### [facility] [address] [place], [address] MCH Normal 27.0-32.[address] [facility] Comment on above: Result Comment: Canc elled via OM: Order cancelled - Patient discharged Performed By: #### L 100.0100 #### [facility] [address] [place], [address] MCHC Normal 32-[address] [facility] Comment on above: Result Comment: Canc elled via OM: Order cancelled - Patient discharged Performed By: #### L 100.0100 #### [facility] [address] [place], [address] MCV Normal 80-[address] [facility] Comment on above: Result Comment: Canc elled via OM: Order cancelled - Patient discharged Performed By: #### L 100.0100 #### [facility] [address] [place], [address] NEUT% Normal 47-[address] [facility] Comment on above: Result Comment: Canc elled via OM: Order cancelled - Patient discharged Performed By: #### L 100.0100 #### [facility] [address] [place], [address] PLT Normal 150-[address] [facility] Comment on above: Result Comment: Canc elled via OM: Order cancelled - Patient discharged Performed By: #### L 100.0100 #### [facility] [address] [place], [address] RBC Normal 4.6-6.[address] [facility] Comment on above: Result Comment: Canc elled via OM: Order cancelled - Patient discharged Performed By: #### L 100.0100 #### [facility] [address] [place], [address] RDW CV Normal 11.6-14.[address] [facility] Comment on above: Result Comment: Canc elled via OM: Order cancelled - Patient discharged Performed By: #### L 100.0100 #### [facility] [address] [place], [address] RDW SD Normal 35.1-43.[address] [facility] Comment on above: Result Comment: Canc elled via OM: Order cancelled - Patient discharged Performed By: #### L 100.0100 #### [facility] [address] [place], [address] WBC Normal 4.4-11.[address] [facility] Comment on above: Result Comment: Canc elled via OM: Order cancelled - Patient discharged Performed By: #### L 100.0100 #### [facility] [address] [place], [address] Comprehensive Metabolic Prof ilon 11-22-2022 ALB Normal 3.2-5.[address] [facility] Comment on above: Result Comment: Canc elled via OM: Order cancelled - Patient discharged Performed By: #### M 100.0605, L7000.0700, L7000.0750 #### [facility] [address] [place], [address] ALK P Normal 45-[address] [facility] Comment on above: Result Comment: Canc elled via OM: Order cancelled - Patient discharged Performed By: #### M 100.0605, L7000.0700, L7000.0750 #### [facility] [address] [place], [address] ALT Normal 16-[address] [facility] Comment on above: Result Comment: Canc elled via OM: Order cancelled - Patient discharged Performed By: #### M 100.0605, L7000.0700, L7000.0750 #### [facility] [address] [place], [address] AST Normal 15-[address] [facility] Comment on above: Result Comment: Canc elled via OM: Order cancelled - Patient discharged Performed By: #### M 100.0605, L7000.0700, L7000.0750 #### [facility] [address] [place], [address] BUN Normal 7-[address] [facility] Comment on above: Result Comment: Canc elled via OM: Order cancelled - Patient discharged Performed By: #### M 100.0605, L7000.0700, L7000.0750 #### [facility] [address] [place], [address] BUN/CRE Normal 10-[address] [facility] Comment on above: Result Comment: Canc elled via OM: Order cancelled - Patient discharged Performed By: #### M 100.0605, L7000.0700, L7000.0750 #### [facility] [address] [place], [address] CA,Total Normal 8.5-10.[address] [facility] Comment on above: Result Comment: Canc elled via OM: Order cancelled - Patient discharged Performed By: #### M 100.0605, L7000.0700, L7000.0750 #### [facility] [address] [place], [address] CL Normal 98-[address] [facility] Comment on above: Result Comment: Canc elled via OM: Order cancelled - Patient discharged Performed By: #### M 100.0605, L7000.0700, L7000.0750 #### [facility] [address] [place], [address] CO2 Normal 21.0-32.[address] [facility] Comment on above: Result Comment: Canc elled via OM: Order cancelled - Patient discharged Performed By: #### M 100.0605, L7000.0700, L7000.0750 #### [facility] [address] [place], [address] CREAT,SERUM Normal 0.70-1.[address] [facility] Comment on above: Result Comment: Canc elled via OM: Order cancelled - Patient discharged Performed By: #### M 100.0605, L7000.0700, L7000.0750 #### [facility] [address] [place], [address] EST GFR Normal >[address] [facility] Comment on above: Result Comment: Canc elled via OM: Order cancelled - Patient discharged Performed By: #### M 100.0605, L7000.0700, L7000.0750 #### [facility] [address] [place], [address] EST GFR - AA Normal >[address] [facility] Comment on above: Result Comment: Canc elled via OM: Order cancelled - Patient discharged Performed By: #### M 100.0605, L7000.0700, L7000.0750 #### [facility] [address] [place], [address] GAP Normal 5-[address] [facility] Comment on above: Result Comment: Canc elled via OM: Order cancelled - Patient discharged Performed By: #### M 100.0605, L7000.0700, L7000.0750 #### [facility] [address] [place], [address] GLU Normal 74-[address] [facility] Comment on above: Result Comment: Canc elled via OM: Order cancelled - Patient discharged Performed By: #### M 100.0605, L7000.0700, L7000.0750 #### [facility] [address] [place], [address] Potassium Normal 3.5-5.[address] [facility] Comment on above: Result Comment: Canc elled via OM: Order cancelled - Patient discharged Performed By: #### M 100.0605, L7000.0700, L7000.0750 #### [facility] [address] [place], [address] T BILI Normal 0.20-1.[address] [facility] Comment on above: Result Comment: Canc elled via OM: Order cancelled - Patient discharged Performed By: #### M 100.0605, L7000.0700, L7000.0750 #### [facility] [address] [place], [address] T PROT Normal 6.4-8.[address] [facility] Comment on above: Result Comment: Canc elled via OM: Order cancelled - Patient discharged Performed By: #### M 100.0605, L7000.0700, L7000.0750 #### [facility] [address] [place], [address] Comprehensive Metabolic Profil Normal 136-[address] [facility] Comment on above: Result Comment: Canc elled via OM: Order cancelled - Patient discharged Performed By: #### M 100.0605, L7000.0700, L7000.0750 #### [facility] [address] [place], [address] CBC W/Diff, Automatedon 04- Absolute Neut Normal 2.0-7.[address] [facility] Comment on above: Result Comment: Canc elled via OM: Order cancelled - Patient discharged Performed By: #### L 100.0100 #### [facility] [address] [place], [address] HCT Normal 40-[address] [facility] Comment on above: Result Comment: Canc elled via OM: Order cancelled - Patient discharged Performed By: #### L 100.0100 #### [facility] [address] [place], [address] HGB Normal 13.0-16.[address] [facility] Comment on above: Result Comment: Canc elled via OM: Order cancelled - Patient discharged Performed By: #### L 100.0100 #### [facility] [address] [place], [address] MCH Normal 27.0-32.[address] [facility] Comment on above: Result Comment: Canc elled via OM: Order cancelled - Patient discharged Performed By: #### L 100.0100 #### [facility] [address] [place], [address] MCHC Normal 32-[address] [facility] Comment on above: Result Comment: Canc elled via OM: Order cancelled - Patient discharged Performed By: #### L 100.0100 #### [facility] [address] [place], [address] MCV Normal 80-[address] [facility] Comment on above: Result Comment: Canc elled via OM: Order cancelled - Patient discharged Performed By: #### L 100.0100 #### [facility] [address] [place], [address] NEUT% Normal 47-[address] [facility] Comment on above: Result Comment: Canc elled via OM: Order cancelled - Patient discharged Performed By: #### L 100.0100 #### [facility] [address] [place], [address] PLT Normal 150-[address] [facility] Comment on above: Result Comment: Canc elled via OM: Order cancelled - Patient discharged Performed By: #### L 100.0100 #### [facility] [address] [place], [address] RBC Normal 4.6-6.[address] [facility] Comment on above: Result Comment: Canc elled via OM: Order cancelled - Patient discharged Performed By: #### L 100.0100 #### [facility] [address] [place], [address] RDW CV Normal 11.6-14.[address] [facility] Comment on above: Result Comment: Canc elled via OM: Order cancelled - Patient discharged Performed By: #### L 100.0100 #### [facility] [address] [place], [address] RDW SD Normal 35.1-43.[address] [facility] Comment on above: Result Comment: Canc elled via OM: Order cancelled - Patient discharged Performed By: #### L 100.0100 #### [facility] [address] [place], [address] WBC Normal 4.4-11.[address] [facility] Comment on above: Result Comment: Canc elled via OM: Order cancelled - Patient discharged Performed By: #### L 100.0100 #### [facility] [address] [place], [address] Comprehensive Metabolic Prof mari 11-21-2022 ALB Normal 3.2-5.[address] [facility] Comment on above: Result Comment: Canc elled via OM: Order cancelled - Patient discharged Performed By: #### M 100.0605, L7000.0700, L7000.0750 #### [facility] [address] [place], [address] ALK P Normal 45-[address] [facility] Comment on above: Result Comment: Canc elled via OM: Order cancelled - Patient discharged Performed By: #### M 100.0605, L7000.0700, L7000.0750 #### [facility] [address] [place], [address] ALT Normal 16-[address] [facility] Comment on above: Result Comment: Canc elled via OM: Order cancelled - Patient discharged Performed By: #### M 100.0605, L7000.0700, L7000.0750 #### [facility] [address] [place], [address] AST Normal 15-[address] [facility] Comment on above: Result Comment: Canc elled via OM: Order cancelled - Patient discharged Performed By: #### M 100.0605, L7000.0700, L7000.0750 #### [facility] [address] [place], [address] BUN Normal 7-[address] [facility] Comment on above: Result Comment: Canc elled via OM: Order cancelled - Patient discharged Performed By: #### M 100.0605, L7000.0700, L7000.0750 #### [facility] [address] [place], [address] BUN/CRE Normal 10-[address] [facility] Comment on above: Result Comment: Canc elled via OM: Order cancelled - Patient discharged Performed By: #### M 100.0605, L7000.0700, L7000.0750 #### [facility] [address] [place], [address] CA,Total Normal 8.5-10.[address] [facility] Comment on above: Result Comment: Canc elled via OM: Order cancelled - Patient discharged Performed By: #### M 100.0605, L7000.0700, L7000.0750 #### [facility] [address] [place], [address] CL Normal 98-[address] [facility] Comment on above: Result Comment: Canc elled via OM: Order cancelled - Patient discharged Performed By: #### M 100.0605, L7000.0700, L7000.0750 #### [facility] [address] [place], [address] CO2 Normal 21.0-32.[address] [facility] Comment on above: Result Comment: Canc elled via OM: Order cancelled - Patient discharged Performed By: #### M 100.0605, L7000.0700, L7000.0750 #### [facility] [address] [place], [address] CREAT,SERUM Normal 0.70-1.[address] [facility] Comment on above: Result Comment: Canc elled via OM: Order cancelled - Patient discharged Performed By: #### M 100.0605, L7000.0700, L7000.0750 #### [facility] [address] [place], [address] EST GFR Normal >[address] [facility] Comment on above: Result Comment: Canc elled via OM: Order cancelled - Patient discharged Performed By: #### M 100.0605, L7000.0700, L7000.0750 #### [facility] [address] [place], [address] EST GFR - AA Normal >[address] [facility] Comment on above: Result Comment: Canc elled via OM: Order cancelled - Patient discharged Performed By: #### M 100.0605, L7000.0700, L7000.0750 #### [facility] [address] [place], [address] GAP Normal 5-[address] [facility] Comment on above: Result Comment: Canc elled via OM: Order cancelled - Patient discharged Performed By: #### M 100.0605, L7000.0700, L7000.0750 #### [facility] [address] [place], [address] GLU Normal 74-[address] [facility] Comment on above: Result Comment: Canc elled via OM: Order cancelled - Patient discharged Performed By: #### M 100.0605, L7000.0700, L7000.0750 #### [facility] [address] [place], [address] Potassium Normal 3.5-5.[address] [facility] Comment on above: Result Comment: Canc elled via OM: Order cancelled - Patient discharged Performed By: #### M 100.0605, L7000.0700, L7000.0750 #### [facility] [address] [place], [address] T BILI Normal 0.20-1.[address] [facility] Comment on above: Result Comment: Canc elled via OM: Order cancelled - Patient discharged Performed By: #### M 100.0605, L7000.0700, L7000.0750 #### [facility] [address] [place], [address] T PROT Normal 6.4-8.[address] [facility] Comment on above: Result Comment: Canc elled via OM: Order cancelled - Patient discharged Performed By: #### M 100.0605, L7000.0700, L7000.0750 #### [facility] [address] [place], [address] Comprehensive Metabolic Profil Normal 136-[address] [facility] Comment on above: Result Comment: Canc elled via OM: Order cancelled - Patient discharged Performed By: #### M 100.0605, L7000.0700, L7000.0750 #### [facility] [address] [place], [address] CBC W/Diff, Automatedon - Absolute Neut Normal 2.0-7.[address] [facility] Comment on above: Result Comment: Canc elled via OM: Order cancelled - Patient discharged Performed By: #### L 100.0100 #### [facility] [address] [place], [address] HCT Normal 40-[address] [facility] Comment on above: Result Comment: Canc elled via OM: Order cancelled - Patient discharged Performed By: #### L 100.0100 #### [facility] [address] [place], [address] HGB Normal 13.0-16.[address] [facility] Comment on above: Result Comment: Canc elled via OM: Order cancelled - Patient discharged Performed By: #### L 100.0100 #### [facility] [address] [place], [address] MCH Normal 27.0-32.[address] [facility] Comment on above: Result Comment: Canc elled via OM: Order cancelled - Patient discharged Performed By: #### L 100.0100 #### [facility] [address] [place], [address] MCHC Normal 32-[address] [facility] Comment on above: Result Comment: Canc elled via OM: Order cancelled - Patient discharged Performed By: #### L 100.0100 #### [facility] [address] [place], [address] MCV Normal 80-[address] [facility] Comment on above: Result Comment: Canc elled via OM: Order cancelled - Patient discharged Performed By: #### L 100.0100 #### [facility] [address] [place], [address] NEUT% Normal 47-[address] [facility] Comment on above: Result Comment: Canc elled via OM: Order cancelled - Patient discharged Performed By: #### L 100.0100 #### [facility] [address] [place], [address] PLT Normal 150-[address] [facility] Comment on above: Result Comment: Canc elled via OM: Order cancelled - Patient discharged Performed By: #### L 100.0100 #### [facility] [address] [place], [address] RBC Normal 4.6-6.[address] [facility] Comment on above: Result Comment: Canc elled via OM: Order cancelled - Patient discharged Performed By: #### L 100.0100 #### [facility] [address] [place], [address] RDW CV Normal 11.6-14.[address] [facility] Comment on above: Result Comment: Canc elled via OM: Order cancelled - Patient discharged Performed By: #### L 100.0100 #### [facility] [address] [place], [address] RDW SD Normal 35.1-43.[address] [facility] Comment on above: Result Comment: Canc elled via OM: Order cancelled - Patient discharged Performed By: #### L 100.0100 #### [facility] [address] [place], [address] WBC Normal 4.4-11.[address] [facility] Comment on above: Result Comment: Canc elled via OM: Order cancelled - Patient discharged Performed By: #### L 100.0100 #### [facility] [address] [place], [address] Comprehensive Metabolic Prof ilon 11-20-2022 ALB Normal 3.2-5.[address] [facility] Comment on above: Result Comment: Canc elled via OM: Order cancelled - Patient discharged Performed By: #### M 100.0605, L7000.0700, L7000.0750 #### [facility] [address] [place], [address] ALK P Normal 45-[address] [facility] Comment on above: Result Comment: Canc elled via OM: Order cancelled - Patient discharged Performed By: #### M 100.0605, L7000.0700, L7000.0750 #### [facility] [address] [place], [address] ALT Normal 16-[address] [facility] Comment on above: Result Comment: Canc elled via OM: Order cancelled - Patient discharged Performed By: #### M 100.0605, L7000.0700, L7000.0750 #### [facility] [address] [place], [address] AST Normal 15-[address] [facility] Comment on above: Result Comment: Canc elled via OM: Order cancelled - Patient discharged Performed By: #### M 100.0605, L7000.0700, L7000.0750 #### [facility] [address] [place], [address] BUN Normal 7-[address] [facility] Comment on above: Result Comment: Canc elled via OM: Order cancelled - Patient discharged Performed By: #### M 100.0605, L7000.0700, L7000.0750 #### [facility] [address] [place], [address] BUN/CRE Normal 10-[address] [facility] Comment on above: Result Comment: Canc elled via OM: Order cancelled - Patient discharged Performed By: #### M 100.0605, L7000.0700, L7000.0750 #### [facility] [address] [place], [address] CA,Total Normal 8.5-10.[address] [facility] Comment on above: Result Comment: Canc elled via OM: Order cancelled - Patient discharged Performed By: #### M 100.0605, L7000.0700, L7000.0750 #### [facility] [address] [place], [address] CL Normal 98-[address] [facility] Comment on above: Result Comment: Canc elled via OM: Order cancelled - Patient discharged Performed By: #### M 100.0605, L7000.0700, L7000.0750 #### [facility] [address] [place], [address] CO2 Normal 21.0-32.[address] [facility] Comment on above: Result Comment: Canc elled via OM: Order cancelled - Patient discharged Performed By: #### M 100.0605, L7000.0700, L7000.0750 #### [facility] [address] [place], [address] CREAT,SERUM Normal 0.70-1.[address] [facility] Comment on above: Result Comment: Canc elled via OM: Order cancelled - Patient discharged Performed By: #### M 100.0605, L7000.0700, L7000.0750 #### [facility] [address] [place], [address] EST GFR Normal >[address] [facility] Comment on above: Result Comment: Canc elled via OM: Order cancelled - Patient discharged Performed By: #### M 100.0605, L7000.0700, L7000.0750 #### [facility] [address] [place], [address] EST GFR - AA Normal >[address] [facility] Comment on above: Result Comment: Canc elled via OM: Order cancelled - Patient discharged Performed By: #### M 100.0605, L7000.0700, L7000.0750 #### [facility] [address] [place], [address] GAP Normal 5-[address] [facility] Comment on above: Result Comment: Canc elled via OM: Order cancelled - Patient discharged Performed By: #### M 100.0605, L7000.0700, L7000.0750 #### [facility] [address] [place], [address] GLU Normal 74-[address] [facility] Comment on above: Result Comment: Canc elled via OM: Order cancelled - Patient discharged Performed By: #### M 100.0605, L7000.0700, L7000.0750 #### [facility] [address] [place], [address] Potassium Normal 3.5-5.[address] [facility] Comment on above: Result Comment: Canc elled via OM: Order cancelled - Patient discharged Performed By: #### M 100.0605, L7000.0700, L7000.0750 #### [facility] [address] [place], [address] T BILI Normal 0.20-1.[address] [facility] Comment on above: Result Comment: Canc elled via OM: Order cancelled - Patient discharged Performed By: #### M 100.0605, L7000.0700, L7000.0750 #### [facility] [address] [place], [address] T PROT Normal 6.4-8.[address] [facility] Comment on above: Result Comment: Canc elled via OM: Order cancelled - Patient discharged Performed By: #### M 100.0605, L7000.0700, L7000.0750 #### [facility] [address] [place], [address] Comprehensive Metabolic Profil Normal 136-[address] [facility] Comment on above: Result Comment: Canc elled via OM: Order cancelled - Patient discharged Performed By: #### M 100.0605, L7000.0700, L7000.0750 #### [facility] [address] [place], [address] Absolute lymphocyte countOrd ered By: Dr. Davidson on 11-19-2022 Lymphocytes Auto (Unsp spec) [#/Vol] 1.97 10*3/uL 0.83-4.[address] [facility] Basophil percentageOrdered B y: Dr. Davidson on 11-19-2022 Basophils/100 WBC (Bld) 0.6 % 0-1 [facility] Bilirubin [Mass/Vol] 0.20 mg/dL 0.20-1.00 [facility] Comment on above: For patients on eltr ombopag therapy, use of Dimension Bowman TBIL is not recommended. Chloride [Moles/Vol] 112 mmol/L 98-107 [facility] Eosinophils/100 WBC (Bld) 5.5 % 0-[address] [facility] Glucose [Mass/Vol] 91 mg/dL 74-106 [facility] Neutrophils (Bld) [#/Vol] 7.4 10*3/uL 2.0-7.[address] [facility] Neutrophils/100 WBC (Bld) 67.4 % 47-[address] [facility] Potassium [Moles/Vol] 4.5 mmol/L 3.5-5.1 [facility] Protein [Mass/Vol] 6.0 g/dL 6.4-8.2 [facility] Sodium [Moles/Vol] 139 mmol/L 136-145 [facility] WBC (Bld) [#/Vol] 11.1 10*3/uL 4.4-11.0 [facility] Blood erythrocytes count (nu mber/volume)Ordered By: Dr. Davidson on 11-19-2022 RBC (Bld) [#/Vol] 3.10 10*6/uL 4.6-6.2 [facility] Blood hemoglobin measurement (mass/volume)Ordered By: Dr. Davidson on 11-19-2022 Hemoglobin (Bld) [Mass/Vol] 10.4 g/dL 13.0-16.[address] [facility] Blood lymphocytes/100 leukoc ytesOrdered By: Dr. Davidson on 11-19-2022 Lymphocytes/100 WBC (Bld) 17.8 % 19-[address] [facility] Blood monocytes/100 leukocyt esOrdered By: Dr. Davidson on 11-19-2022 Monocytes/100 WBC (Bld) 8.2 % 0-10 [facility] Blood platelet mean volumeOr dered By: Dr. Davidson on 11-19-2022 Platelet mean volume (Bld) [Entitic vol] 9.3 fL 6.2-12.[address] [facility] Determination of erythrocyte mean corpuscular volume (MCV)Ordered By: Dr. Davidson on 11-19-2022 MCV (RBC) [Entitic vol] 103.2 fL 80-94 [facility] Hematocrit Auto (Bld) [Volum e fraction]Ordered By: Dr. Davidson on 11-19-2022 Hematocrit (Bld) [Volume fraction] 32.0 % 40-[address] [facility] - Chemistry and C hemistry - challengeOrdered By: Dr. Davidson on 11-19-2022 ALP [Catalytic activity/Vol] 102 U/L 45-[address] [facility] ALT [Catalytic activity/Vol] 29 U/L 16-[address] [facility] CO2 [Moles/Vol] 26.0 mmol/L 21.0-32.[address] [facility] Globulin (S) [Mass/Vol] 3.3 g/dL 2.2-4.2 [facility] Magnesium [Mass/Vol] 1.8 mg/dL 1.6-2.6 [facility] Urea nitrogen/Creatinine [Mass ratio] 16.6 mg/mg 10-[address] [facility] - Hematology and Cell countsOrdered By: Dr. Davidson on 11-19-2022 Erythrocyte distribution width (RBC) [Entitic vol] 50.6 fL 35.1-43.[address] [facility] Erythrocyte distribution width (RBC) [Ratio] 13.4 % 11.6-14.[address] [facility] Immature granulocytes/100 WBC (Bld) 0.500 % 0.0-0.[address] [facility] Comment on above: IG% - Immature Granu locytes (promyelocytes, myelocytes and metamyelocytes) > 1% indicates that a LEFT SHIFT is Present. MCH (RBC) [Entitic mass] 33.5 pg 27.0-32.[address] [facility] Nucleated RBC/100 WBC (Bld) [Ratio] 0 % 0-[address] [facility] MCHC Auto (RBC) [Mass/Vol]Or dered By: Dr. Davidson on 11-19-2022 MCHC (RBC) [Mass/Vol] 32.5 g/dL 32-36 [facility] No Panel InformationOrdered By: Dr. Davidson on 11-19-2022 Estimated Creatinine Clearance Calc 129.44 ml/min [facility] Estimated GFR (MDRD) Amer 162 mL/min >[address] [facility] Comment on above: GFR Calc Estimated GFR (MDRD) Non-Af Amer 134 mL/min >[address] [facility] Comment on above: Non- GFR Calc Platelets bldOrdered By: Dr. Davidson on 11-19-2022 Platelets (Bld) [#/Vol] 487 10*3/uL 150-[address] [facility] Serum or plasma albumin christy urement (mass/volume)Ordered By: Dr. Davidson on 11-19-2022 Albumin [Mass/Vol] 2.7 g/dL 3.2-5.0 [facility] Serum or plasma albumin/glob ulin mass ratioOrdered By: Dr. Davidson on 11-19-2022 Albumin/Globulin [Mass ratio] 0.8 {ratio} 0.9-2.[address] [facility] Serum or plasma calcium christy urement (mass/volume)Ordered By: Dr. Davidson on 11-19-2022 Calcium [Mass/Vol] 7.7 mg/dL 8.5-10.1 [facility] Serum or plasma creatinine m easurement (mass/volume)Ordered By: Dr. Davidson on 11-19-2022 Creatinine [Mass/Vol] 0.66 mg/dL 0.70-1.30 [facility] Comment on above: The validity of the calculated GFR & GFRAA in patients over 70 years has not been determined. Clinical correlation is essential. Serum or plasma urea nitroge n measurement (mass/volume)Ordered By: Dr. Davidson on 11-19-2022 Urea nitrogen [Mass/Vol] 11 mg/dL 7-[address] [facility] Thin prep Papanicolaou smear with manual screeningOrdered By: Dr. Davidson on 11-19-2022 Thin prep Papanicolaou smear with manual screening 21 U/L 15-[address] [facility] Thin prep Papanicolaou smear with manual screening 1 5-[address] [facility] Basophil percentageOrdered B y: Dr. Davidson on 11-18-2022 Basophil percentage 3.9 mg/dL 2.5-4.9 [facility] 24 hour urine calcium measur ement (mass/volume)Ordered By: Dr. Davidson on 11-17-2022 Calcium (24H U) [Mass/Vol] 9.6 mg/dL Not Estab. [facility] Absolute lymphocyte countOrd ered By: Gino Briscoe on 11-17-2022 Lymphocytes Auto (Unsp spec) [#/Vol] 2.46 10*3/uL 0.83-4.[address] [facility] Albumin Elph [Mass/Vol]Order ed By: Gino Briscoe on 11-17-2022 Albumin [Mass/Vol] 3.2 g/dL 2.9-4.4 [facility] Atypical perinuclear antineu trophil cytoplasmic antibodies measurementOrdered By: Gino Briscoe on 11-17-2022 Neutrophil cytoplasmic Ab.perinuclear.atypical IF (S) [Titer] <1:20 titer Neg:<1:[address] [facility] Comment on above: The atypical pANCA p attern has been observed in asignificant percentage of patients with ulcerative colitis,primary sclerosing cholangitis and autoimmune hepatitis.Performed at: - [facility] [id number] Director: Donny Kerr PhD, Phone: [phone] at: [facility] [id number] Director: Edmundo Panda MD, Phone: [phone] Basophil percentageOrdered B y: Gino Briscoe on 11-17-2022 Amylase [Catalytic activity/Vol] 162 U/L 25-[address] [facility] Basophil percentage < 0.2 AI 0.0-0.9 [facility] Basophils/100 WBC (Bld) 0.7 % 0-1 [facility] Bilirubin [Mass/Vol] 0.20 mg/dL 0.20-1.00 [facility] Comment on above: For patients on eltr ombopag therapy, use of Dimension Bowman TBIL is not recommended. Chloride [Moles/Vol] 105 mmol/L 98-107 [facility] Eosinophils/100 WBC (Bld) 4.9 % 0-[address] [facility] Glucose [Mass/Vol] 97 mg/dL 74-106 [facility] LDH [Catalytic activity/Vol] 276 U/L 87-[address] [facility] Neutrophils (Bld) [#/Vol] 8.9 10*3/uL 2.0-7.[address] [facility] Neutrophils/100 WBC (Bld) 67.3 % 47-[address] [facility] Potassium [Moles/Vol] 3.6 mmol/L 3.5-5.1 [facility] Protein [Mass/Vol] 6.5 g/dL 6.4-8.2 [facility] Sodium [Moles/Vol] 139 mmol/L 136-145 [facility] WBC (Bld) [#/Vol] 13.2 10*3/uL 4.4-11.0 [facility] Blood erythrocytes count (nu mber/volume)Ordered By: Gino Briscoe on 11-17-2022 RBC (Bld) [#/Vol] 3.31 10*6/uL 4.6-6.2 [facility] Blood hemoglobin measurement (mass/volume)Ordered By: Gino rBiscoe on 11-17-2022 Hemoglobin (Bld) [Mass/Vol] 10.7 g/dL 13.0-16.[address] [facility] Blood lymphocytes/100 leukoc ytesOrdered By: Gino Briscoe on 11-17-2022 Lymphocytes/100 WBC (Bld) 18.6 % 19-[address] [facility] Blood monocytes/100 leukocyt esOrdered By: Gino Briscoe on 11-17-2022 Monocytes/100 WBC (Bld) 7.4 % 0-10 [facility] Blood platelet mean volumeOr dered By: Gino Briscoe on 11-17-2022 Platelet mean volume (Bld) [Entitic vol] 9.3 fL 6.2-12.[address] [facility] Determination of erythrocyte mean corpuscular volume (MCV)Ordered By: Gino Briscoe on 11-17-2022 MCV (RBC) [Entitic vol] 102.7 fL 80-94 [facility] Erythrocyte sedimentation ra teOrdered By: Gino Briscoe on 11-17-2022 ESR (Bld) [Velocity] 25 mm/h 0-20 [facility] Hematocrit Auto (Bld) [Volum e fraction]Ordered By: Gino Briscoe on 11-17-2022 Hematocrit (Bld) [Volume fraction] 34.0 % 40-[address] [facility] Interpretation of serum or p lasma protein pattern by immunofixation (narrative resultOrdered By: Gino Briscoe on 11-17-2022 Protein Fractions Immunofixation Vahe [Interp] See comment [facility] Comment on above: Result: Not Observed Laboratory - Chemistry and C hemistry - challengeOrdered By: Dr. Davidson on 11-17-2022 Sodium (U) [Moles/Vol] 181 mmol/L Not Establ. [facility] Laboratory - Chemistry and C hemistry - challengeOrdered By: Sina Wang on 11-17-2022 Magnesium [Mass/Vol] 0.3 mg/dL 1.6-2.6 [facility] Comment on above: Critical Result(s) C alled at: 16:21:38 11/17/2022 by: KALLI PRINCE TO ANDRES ENRIQUEZ. Results read back by same. Laboratory - Chemistry and C hemistry - challengeOrdered By: Gino Briscoe on 11-17-2022 ALP [Catalytic activity/Vol] 91 U/L 45-[address] [facility] ALT [Catalytic activity/Vol] 35 U/L 16-[address] [facility] CO2 [Moles/Vol] 27.0 mmol/L 21.0-32.[address] [facility] Globulin (S) [Mass/Vol] 3.5 g/dL 2.2-4.2 [facility] Lipase [Catalytic activity/Vol] 104 U/L 13-[address] [facility] Comment on above: Please note:LIPASE r evised reference range effective 22. New Lipase methodology. Expected to produce lower values than the previous assay method. NEW Reference Range: 13 - 75 U/L Urea nitrogen/Creatinine [Mass ratio] 11.6 mg/mg 10-[address] [facility] - Hematology and Cell countsOrdered By: Gino Briscoe on 11-17-2022 Erythrocyte distribution width (RBC) [Entitic vol] 50.6 fL 35.1-43.[address] [facility] Erythrocyte distribution width (RBC) [Ratio] 13.3 % 11.6-14.[address] [facility] Immature granulocytes/100 WBC (Bld) 1.100 % 0.0-0.[address] [facility] Comment on above: IG% - Immature Granu locytes (promyelocytes, myelocytes and metamyelocytes) > 1% indicates that a LEFT SHIFT is Present. MCH (RBC) [Entitic mass] 32.3 pg 27.0-32.[address] [facility] Nucleated RBC/100 WBC (Bld) [Ratio] 0 % 0-[address] [facility] MCHC Auto (RBC) [Mass/Vol]Or dered By: Gino Briscoe on 11-17-2022 MCHC (RBC) [Mass/Vol] 31.5 g/dL 32-36 [facility] No Panel InformationOrdered By: Dr. Davidson on 11-17-2022 Miscellaneous Test See comment [facility] Comment on above: TEST RESULT LIMITSMa gnesium, Random Urine 8.4 mg/dL Not Estab. _ [facility]. ORIGINAL REPORT ON FILE IN LAB CONTAINS ADDITIONAL TEST SITE INFORMATION. Urine Potassium 6.0 mmol/L Not Establ. [facility] Urine Urea Nitrogen 238 mg/dL NO RANGE EST. [facility] Ionized Calcium 4.1 mg/dL 4.5-5.[address] [facility] Comment on above: Performed at: - L [facility] [id number] Director: Donny Kerr PhD, Phone: [phone] Parathyroid Hormone (Intact) 146.3 pg/mL 18.4-80.[address] [facility] No Panel InformationOrdered By: Gino Friend on 11-17-2022 Addendum Document Comment . [facility] Comment on above: Protein electrophore sis scan will follow via computer,mail, or screen printing paster delivery. Centromere B Antibody <0.2 AI 0.0-0.9 [facility] Estimated GFR (MDRD) Amer 154 mL/min >[address] [facility] Comment on above: GFR Calc Estimated GFR (MDRD) Non-Af Amer 128 mL/min >[address] [facility] Comment on above: Non- GFR Calc Hepatitis A IgM Antibody Negative Negative [facility] Hepatitis B Core IgM Antibody Negative Negative [facility] Hepatitis C Antibody (EIA) Non-Reactive Non Reactive [facility] Hepatitis C Antibody Comment Comment . [facility] Comment on above: Not infected with HC V unless early or acute infection issuspected (which may be delayed in an immunocompromisedindividual), or other evidence exists to indicate HCVinfection. Immunoglobulin E 117 IU/mL 6-[address] [facility] Miscellaneous Test See comment [facility] Comment on above: TEST RESULT LIMITSIB D Expanded Panel Mira 5 units 0-50 Negative <45 Equivocal 45 - 50 Positive >50 ACCA 24 units 0-90 Negative <80 Equivocal 80 - 90 Positive >90 ALCA 7 units 0-60 Negative <55 Equivocal 55 - 60 Positive >60 AMCA 14 units 0-100 Negative < 90 Equivocal 90 - 100 Positive >100 This test was developed and its performance characteristics determined by [facility]. It has not been cleared or approved by the Food and Drug Administration. The FDA has determined that such clearance or approval is not necessary.Atypical pANCA Negative Negative Comments Pattern is not suggestive of Inflammatory Bowel Disease __ TESTING PERFORMED AT [facility]. ORIGINAL REPORT ON FILE IN LAB CONTAINS ADDITIONAL TEST SITE INFORMATION. [employer] Antibody <0.2 AI 0.0-0.[address] [facility] Platelets bldOrdered By: Lewis Briscoe on 11-17-2022 Platelets (Bld) [#/Vol] 538 10*3/uL 150-[address] [facility] Qualitative QuantiFERON-TB g old in tube testOrdered By: Gino Briscoe on 11-17-2022 M. tuberculosis tuberculin stim IFN-g Ql (Bld) 0.01 IU/mL . [facility] Serum DNA double strand anti body assay (units/volume)Ordered By: Gino Briscoe on 11-17-2022 DNA double strand Ab Qn (S) [IU]/mL 0-[address] [facility] Comment on above: Negative <5 Equivoca l 5 - 9 Positive >9 Serum Leah-1 antibody assay (u nits/volume)Ordered By: Gino Briscoe on 11-17-2022 Leah-1 extractable nuclear Ab Qn (S) <0.2 AI 0.0-0.[address] [facility] Serum Scl-70 extractable nuc lear antibody assay (units/volume)Ordered By: Gino Briscoe on 11-17-2022 SCL-70 extractable nuclear Ab Qn (S) <0.2 AI 0.0-0.[address] [facility] Serum Norton extractable nucl ear antibody detectionOrdered By: Gino Brsicoe on 11-17-2022 Norton extractable nuclear Ab Ql (S) <0.2 AI 0.0-0.[address] [facility] Serum ejybo-3-hngarapl measu rement by electrophoresisOrdered By: Gino Briscoe on 11-17-2022 Alpha 1 globulin Elph [Mass/Vol] 0.3 g/dL 0.0-0.[address] [facility] Alpha 1 globulin Elph [Mass/Vol] 0.8 g/dL 0.4-1.[address] [facility] Serum classic neutrophil cyt oplasmic antibody assay (units/volume)Ordered By: Gino Briscoe on 11-17-2022 Neutrophil cytoplasmic Ab.classic Qn (S) <1:20 titer Neg:<1:[address] [facility] Serum globulin measurement ( mass/volume)Ordered By: Gino Briscoe on 11-17-2022 Globulin (S) [Mass/Vol] 2.5 g/dL 2.2-3.9 [facility] Serum or plasma C reactive p rotein measurement (mass/volume)Ordered By: Gino Briscoe on 11-17-2022 CRP [Mass/Vol] 4.92 mg/L 0.0-3.[address] [facility] Comment on above: C-Reactive Protein ( CRP) provides useful information for thediagnosis, therapy and monitoring of inflammatory processesand associated diseases. For the evaluation of Relative Riskfor Cardiovascular Disease, a High Sensitivity CRP (HSCRP)should be ordered. Serum or plasma IgA measurem ent (mass/volume)Ordered By: Gino Briscoe on 11-17-2022 IgA [Mass/Vol] 223 mg/dL 90-[address] [facility] Serum or plasma IgG measurem ent (mass/volume)Ordered By: Gino Briscoe on 11-17-2022 IgG [Mass/Vol] 535 mg/dL 603-[address] [facility] Serum or plasma IgM measurem ent (mass/volume)Ordered By: Gino Briscoe on 11-17-2022 IgM [Mass/Vol] 52 mg/dL 20-[address] [facility] Serum or plasma albumin christy urement (mass/volume)Ordered By: Gino Briscoe on 11-17-2022 Albumin [Mass/Vol] 3.0 g/dL 3.2-5.0 [facility] Serum or plasma albumin/glob ulin mass ratioOrdered By: Gino Briscoe on 11-17-2022 Albumin/Globulin [Mass ratio] 0.9 {ratio} 0.9-2.[address] [facility] Serum or plasma beta globuli n measurement by electrophoresis (mass/volume)Ordered By: Gino Briscoe on 11-17-2022 Beta globulin Elph [Mass/Vol] 0.9 g/dL 0.7-1.[address] [facility] Serum or plasma calcitriol m easurement (mass/volume)Ordered By: Dr. Davidson on 11-17-2022 1,25-dihydroxyvitamin D3 [Mass/Vol] 41.6 pg/mL 24.8-81.[address] [facility] Comment on above: Performed at: - L [address] [id number] Director: Edmundo Panda MD, Phone: [phone] Serum or plasma calcium christy urement (mass/volume)Ordered By: Gino Briscoe on 11-17-2022 Calcium [Mass/Vol] 6.1 mg/dL 8.5-10.1 [facility] Comment on above: Critical Result(s) C alled at: 11:55:31 11/17/2022 by: Mamadou Rios to . Results read back by same. Serum or plasma creatinine m easurement (mass/volume)Ordered By: Gino Briscoe on 11-17-2022 Creatinine [Mass/Vol] 0.69 mg/dL 0.70-1.30 [facility] Comment on above: The validity of the calculated GFR & GFRAA in patients over 70 years has not been determined. Clinical correlation is essential. Serum or plasma gamma globul in measurement by electrophoresis (mass/volume)Ordered By: Gino Briscoe on 11-17-2022 Gamma globulin Elph [Mass/Vol] 0.5 g/dL 0.4-1.[address] [facility] Serum or plasma hepatitis B virus surface antigen detection by immunoassayOrdered By: Gino Briscoe on 11-17-2022 HBV surface Ag IA Ql Negative Negative [facility] Serum or plasma immunoelectr ophoresis interpretation (nominal result)Ordered By: Gino Briscoe on 11-17-2022 Interpretation IEP [Interp] Comment . [facility] Comment on above: No monoclonality det ected. Serum or plasma urea nitroge n measurement (mass/volume)Ordered By: Gino Briscoe on 11-17-2022 Urea nitrogen [Mass/Vol] 8 mg/dL 7-[address] [facility] Serum or plasma uric acid me asurement (mass/volume)Ordered By: Gino Briscoe on 11-17-2022 Urate [Mass/Vol] 3.4 mg/dL 3.5-7.[address] [facility] Comment on above: The drugs N-Acetylcy steine and Metamizole may falsely depress this assay. Serum perinuclear neutrophil cytoplasmic antibody titer by immunofluorescenceOrdered By: Gino Briscoe on 11-17-2022 Neutrophil cytoplasmic Ab.perinuclear IF (S) [Titer] <1:20 titer Neg:<1:[address] [facility] Comment on above: The presence of posi tive fluorescence exhibiting P-ANCA orC-ANCA patterns alone is not specific for the diagnosis ofWegener's Granulomatosis (WG) or microscopic polyangiitis.Decisions about treatment should not be based solely onANCA IFA results. The International ANCA Group Consensusrecommends follow up testing of positive sera with both IL-3 and MPO-ANCA enzyme immunoassays. As many as 5% serumsamples are positive only by EIA. Ref. AM J Clin [id number];111:507-513. Thin prep Papanicolaou smear with manual screeningOrdered By: Dr. Davidson on 11-17-2022 Thin prep Papanicolaou smear with manual screening 125 mmol/L Not Establ. [facility] Thin prep Papanicolaou smear with manual screeningOrdered By: Gino Briscoe on 11-17-2022 Thin prep Papanicolaou smear with manual screening 25 U/L 15-[address] [facility] Thin prep Papanicolaou smear with manual screening 7 5-[address] [facility] Thin prep Papanicolaou smear with manual screening 1.3 0.7-1.[address] [facility] Thin prep Papanicolaou smear with manual screening Comment . [facility] Comment on above: QuantiFERON-TB Gold Plus is a qualitative indirect test forM tuberculosis infection (including disease) and isintended for use in conjunction with risk assessment,radiography, and other medical and diagnostic evaluations.The QuantiFERON-TB Gold Plus result is determined bysubtracting the Nil value from either TB antigen (Ag)value. The Mitogen tube serves as a control for the test. Thin prep Papanicolaou smear with manual screening 0 IU/mL . [facility] Thin prep Papanicolaou smear with manual screening 0.02 IU/mL . [facility] Thin prep Papanicolaou smear with manual screening > 10.00 IU/mL . [facility] Thin prep Papanicolaou smear with manual screening Negative Negative [facility] Comment on above: No response to M tub erculosis antigens detected.Infection with M tuberculosis is unlikely, but high riskindividuals should be considered for additional testing(ATS/IDSA/CDC Clinical Practice Guidelines, 2017). Thereference range is an Antigen minus Nil result of <0.35IU/mL.The specimen received for QuantiFERON testing was incubatedby the ordering institution. Specific procedures outlinedin our Directory of Services and in the package insert forthe QuantiFERON Gold (In Tube) test must be followed toenable for proper stimulation of cells for the productionof interferon gamma. Chemiluminescence immunoassaymethodology Total protein bloodOrdered B y: Gino Briscoe on 11-17-2022 Protein [Mass/Vol] 5.7 g/dL 6.0-8.5 [facility] Urine creatinine measurement (mass/volume)Ordered By: Dr. Davidson on 11-17-2022 Creatinine (U) [Mass/Vol] 43.70 mg/dL NO RANGE EST. [facility] Laboratory - Microbiology an d Antimicrobial susceptibilityOrdered By: Dr. Mukherjee on 11-14-2022 Bacteria identified Cx Nom (Bld) No growth in [address] [facility] Absolute lymphocyte countOrd ered By: Dr. Zacarias on 11-13-2022 Lymphocytes Auto (Unsp spec) [#/Vol] 2.18 10*3/uL 0.83-4.[address] [facility] Albumin Elph [Mass/Vol]Order ed By: Gino Briscoe on 11-13-2022 Albumin [Mass/Vol] 2.7 g/dL 2.9-4.4 [facility] Atypical perinuclear antineu trophil cytoplasmic antibodies measurementOrdered By: Gino Briscoe on 11-13-2022 Neutrophil cytoplasmic Ab.perinuclear.atypical IF (S) [Titer] <1:20 titer Neg:<1:[address] [facility] Comment on above: The atypical pANCA p attern has been observed in asignificant percentage of patients with ulcerative colitis,primary sclerosing cholangitis and autoimmune hepatitis.Performed at: - [facility] [id number] [place], [place] [id number] Director: Donny Kerr PhD, Phone: [phone] Basophil percentageOrdered B y: Gino Briscoe on 11-13-2022 Basophil percentage < 0.2 AI 0.0-0.9 [facility] Basophil percentageOrdered B y: Dr. Zacarias on 11-13-2022 Basophils/100 WBC (Bld) 0.6 % 0-1 [facility] Eosinophils/100 WBC (Bld) 3.2 % 0-[address] [facility] Neutrophils (Bld) [#/Vol] 7.6 10*3/uL 2.0-7.[address] [facility] Neutrophils/100 WBC (Bld) 69.1 % 47-[address] [facility] WBC (Bld) [#/Vol] 11.0 10*3/uL 4.4-11.0 [facility] Basophil percentageOrdered B y: Sarahi Bone on 11-13-2022 Chloride [Moles/Vol] 112 mmol/L 98-107 [facility] Glucose [Mass/Vol] 92 mg/dL 74-106 [facility] Potassium [Moles/Vol] 3.5 mmol/L 3.5-5.1 [facility] Sodium [Moles/Vol] 143 mmol/L 136-145 [facility] Blood erythrocytes count (nu mber/volume)Ordered By: Dr. Zacarias on 11-13-2022 RBC (Bld) [#/Vol] 3.12 10*6/uL 4.6-6.2 [facility] Blood hemoglobin measurement (mass/volume)Ordered By: Dr. Zacarias on 11-13-2022 Hemoglobin (Bld) [Mass/Vol] 10.2 g/dL 13.0-16.[address] [facility] Blood lymphocytes/100 leukoc ytesOrdered By: Dr. Zacarias on 11-13-2022 Lymphocytes/100 WBC (Bld) 19.8 % 19-[address] [facility] Blood monocytes/100 leukocyt esOrdered By: Dr. Zacarias on 11-13-2022 Monocytes/100 WBC (Bld) 7.1 % 0-10 [facility] Blood platelet mean volumeOr dered By: Dr. Zacarias on 11-13-2022 Platelet mean volume (Bld) [Entitic vol] 9.1 fL 6.2-12.[address] [facility] Clostridium difficile detect ion by polymerase chain reactionOrdered By: Dr. Yun on 11-13-2022 C. difficile DNA FRANCA+probe Ql (Unsp spec) [facility] Determination of erythrocyte mean corpuscular volume (MCV)Ordered By: Dr. Zacarias on 11-13-2022 MCV (RBC) [Entitic vol] 101.9 fL 80-94 [facility] Erythrocyte sedimentation ra teOrdered By: Gino Briscoe on 11-13-2022 ESR (Bld) [Velocity] 33 mm/h 0-20 [facility] Hematocrit Auto (Bld) [Volum e fraction]Ordered By: Dr. Zacarias on 11-13-2022 Hematocrit (Bld) [Volume fraction] 31.8 % 40-[address] [facility] Interpretation of serum or p lasma protein pattern by immunofixation (narrative resultOrdered By: Gino Briscoe on 11-13-2022 Protein Fractions Immunofixation Vahe [Interp] See comment [facility] Comment on above: NOT OBSERVED Laboratory - Chemistry and C hemistry - challengeOrdered By: Sarahi Bone on 11-13-2022 CO2 [Moles/Vol] 22.0 mmol/L 21.0-32.[address] [facility] Urea nitrogen/Creatinine [Mass ratio] 19.0 mg/mg 10-[address] [facility] Laboratory - Hematology and Cell countsOrdered By: Dr. Zacarias on 11-13-2022 Erythrocyte distribution width (RBC) [Entitic vol] 48.5 fL 35.1-43.[address] [facility] Erythrocyte distribution width (RBC) [Ratio] 13.1 % 11.6-14.[address] [facility] Immature granulocytes/100 WBC (Bld) 0.200 % 0.0-0.[address] [facility] Comment on above: IG% - Immature Granu locytes (promyelocytes, myelocytes and metamyelocytes) > 1% indicates that a LEFT SHIFT is Present. MCH (RBC) [Entitic mass] 32.7 pg 27.0-32.[address] [facility] Nucleated RBC/100 WBC (Bld) [Ratio] 0 % 0-[address] [facility] MCHC Auto (RBC) [Mass/Vol]Or dered By: Dr. Zacarias on 11-13-2022 MCHC (RBC) [Mass/Vol] 32.1 g/dL 32-36 [facility] Comment on above: Delta: 34.5 on 11/12 No Panel InformationOrdered By: Gino Friend on 11-13-2022 Addendum Document Comment . [facility] Comment on above: Protein electrophore sis scan will follow via computer,mail, or screen printing paster delivery. Centromere B Antibody <0.2 AI 0.0-0.9 [facility] Hepatitis A IgM Antibody Negative Negative [facility] Hepatitis B Core IgM Antibody Negative Negative [facility] Hepatitis C Antibody (EIA) Non-Reactive Non Reactive [facility] Hepatitis C Antibody Comment Comment . [facility] Comment on above: Not infected with HC V unless early or acute infection issuspected (which may be delayed in an immunocompromisedindividual), or other evidence exists to indicate HCVinfection. Miscellaneous Test See comment [facility] Comment on above: TEST RESULT LIMITSIB D Expanded Panel Mira 4 units 0-50 Negative <45 Equivocal 45 - 50 Positive >50 ACCA 23 units 0-90 Negative <80 Equivocal 80 - 90 Positive >90 ALCA 4 units 0-60 Negative <55 Equivocal 55 - 60 Positive >60 AMCA 14 units 0-100 Negative < 90 Equivocal 90 - 100 Positive >100 This test was developed and its performance characteristics determined by [employer]. It has not been cleared or approved by the Food and Drug Administration. The FDA has determined that such clearance or approval is not necessary.Atypical pANCA Negative Negative Comments Pattern is not suggestive of Inflammatory Bowel Disease __ TESTING PERFORMED AT [facility]. ORIGINAL REPORT ON FILE IN LAB CONTAINS ADDITIONAL TEST SITE INFORMATION. [employer]PER[employer] Antibody <0.2 AI 0.0-0.[address] [facility] No Panel InformationOrdered By: Dr. Yun on 11-13-2022 Stool Calprotectin 60 ug/g 0-120 [facility] Comment on above: Concentration Interp retation Follow-Up<16 - 50 ug/g Normal None>50 -120 ug/g Borderline Re-evaluate in 4-6 weeks >120 ug/g Abnormal Repeat as clinically indicatedPerformed at: [facility] [id number] Director: Donny Kerr PhD, Phone: [phone] at: [facility] [employer] [id number] Director: Edmundo Panda MD, Phone: [phone] Stool Neutral Fats Normal . [facility] Comment on above: Normal (<60 Droplets /HPF) Stool Pancreatic Elastase 323 >[address] [facility] Comment on above: Result Units: ug Parul st./g Severe Pancreatic Insufficiency: <100 Moderate Pancreatic Insufficiency: 100 - 200 Normal: >200Performed at: [employer] [id number] Director: Edmundo Panda MD, Phone: [phone] No Panel InformationOrdered By: Sarahi Bone on 11-13-2022 Estimated Creatinine Clearance Calc 52.41 ml/min [facility] Estimated GFR (MDRD) Amer 57 mL/min >[address] [facility] Comment on above: GFR Calc Estimated GFR (MDRD) Non-Af Amer 47 mL/min >[address] [facility] Comment on above: Non- GFR Calc Platelets bldOrdered By: Dr. Zacarias on 11-13-2022 Platelets (Bld) [#/Vol] 454 10*3/uL 150-[address] [facility] Qualitative QuantiFERON-TB g old in tube testOrdered By: Gino Briscoe on 11-13-2022 M. tuberculosis tuberculin stim IFN-g Ql (Bld) 0.02 IU/mL . [facility] Qualitative fecal fat or lip idsOrdered By: Dr. Yun on 11-13-2022 Fat Ql (Stl) Increased . [facility] Comment on above: Normal (<100 Droplet s/HPF) Serum DNA double strand anti body assay (units/volume)Ordered By: Gino Briscoe on 11-13-2022 DNA double strand Ab Qn (S) [IU]/mL 0-[address] [facility] Comment on above: Negative <5 Equivoca l 5 - 9 Positive >9 Serum Leah-1 antibody assay (u nits/volume)Ordered By: Gino Briscoe on 11-13-2022 Leah-1 extractable nuclear Ab Qn (S) <0.2 AI 0.0-0.[address] [facility] Serum Scl-70 extractable nuc lear antibody assay (units/volume)Ordered By: Gino Briscoe on 11-13-2022 SCL-70 extractable nuclear Ab Qn (S) <0.2 AI 0.0-0.[address] [facility] Serum Norton extractable nucl ear antibody detectionOrdered By: Gino Briscoe on 11-13-2022 Norton extractable nuclear Ab Ql (S) <0.2 AI 0.0-0.[address] [facility] Serum [id number] measu rement by electrophoresisOrdered By: Gino Briscoe on 11-13-2022 Alpha 1 globulin Elph [Mass/Vol] 0.4 g/dL 0.0-0.[address] [facility] Alpha 1 globulin Elph [Mass/Vol] 0.9 g/dL 0.4-1.[address] [facility] Serum classic neutrophil cyt oplasmic antibody assay (units/volume)Ordered By: Gino Briscoe on 11-13-2022 Neutrophil cytoplasmic Ab.classic Qn (S) <1:20 titer Neg:<1:[address] [facility] Serum globulin measurement ( mass/volume)Ordered By: Gino Briscoe on 11-13-2022 Globulin (S) [Mass/Vol] 2.8 g/dL 2.2-3.9 [facility] Serum or plasma C reactive p rotein measurement (mass/volume)Ordered By: Gino Briscoe on 11-13-2022 CRP [Mass/Vol] 17.90 mg/L 0.0-3.[address] [facility] Comment on above: C-Reactive Protein ( CRP) provides useful information for thediagnosis, therapy and monitoring of inflammatory processesand associated diseases. For the evaluation of Relative Riskfor Cardiovascular Disease, a High Sensitivity CRP (HSCRP)should be ordered. Serum or plasma IgA measurem ent (mass/volume)Ordered By: Gino Briscoe on 11-13-2022 IgA [Mass/Vol] 222 mg/dL 90-[address] [facility] Serum or plasma IgG measurem ent (mass/volume)Ordered By: Gino Briscoe on 11-13-2022 IgG [Mass/Vol] 506 mg/dL 603-[address] [facility] Serum or plasma IgM measurem ent (mass/volume)Ordered By: Gino Briscoe on 11-13-2022 IgM [Mass/Vol] 52 mg/dL 20-[address] [facility] Serum or plasma beta globuli n measurement by electrophoresis (mass/volume)Ordered By: Gino Briscoe on 11-13-2022 Beta globulin Elph [Mass/Vol] 0.9 g/dL 0.7-1.[address] [facility] Serum or plasma calcium christy urement (mass/volume)Ordered By: Sarahi Bone on 11-13-2022 Calcium [Mass/Vol] 7.6 mg/dL 8.5-10.1 [facility] Serum or plasma creatinine m easurement (mass/volume)Ordered By: Sarahi Bone on 11-13-2022 Creatinine [Mass/Vol] 1.63 mg/dL 0.70-1.30 [facility] Comment on above: The validity of the calculated GFR & GFRAA in patients over 70 years has not been determined. Clinical correlation is essential. Serum or plasma gamma globul in measurement by electrophoresis (mass/volume)Ordered By: Gino Briscoe on 11-13-2022 Gamma globulin Elph [Mass/Vol] 0.6 g/dL 0.4-1.[address] [facility] Serum or plasma hepatitis B virus surface antigen detection by immunoassayOrdered By: Gino Briscoe on 11-13-2022 HBV surface Ag IA Ql Negative Negative [facility] Serum or plasma immunoelectr ophoresis interpretation (nominal result)Ordered By: Gino Briscoe on 11-13-2022 Interpretation IEP [Interp] Comment . [facility] Comment on above: No monoclonality det ected. Serum or plasma urea nitroge n measurement (mass/volume)Ordered By: Sarahi Bone on 11-13-2022 Urea nitrogen [Mass/Vol] 31 mg/dL 7-[address] [facility] Serum perinuclear neutrophil cytoplasmic antibody titer by immunofluorescenceOrdered By: Gino Briscoe on 11-13-2022 Neutrophil cytoplasmic Ab.perinuclear IF (S) [Titer] <1:20 titer Neg:<1:[address] [facility] Comment on above: The presence of posi tive fluorescence exhibiting P-ANCA orC-ANCA patterns alone is not specific for the diagnosis ofWegener's Granulomatosis (WG) or microscopic polyangiitis.Decisions about treatment should not be based solely onANCA IFA results. The [employer] ANCA Group Consensusrecommends follow up testing of positive sera with both IL-3 and MPO-ANCA enzyme immunoassays. As many as 5% serumsamples are positive only by EIA. Ref. AM J Clin [id number];111:507-513. Thin prep Papanicolaou smear with manual screeningOrdered By: Gino Briscoe on 11-13-2022 Thin prep Papanicolaou smear with manual screening 1.0 0.7-1.[address] [facility] Thin prep Papanicolaou smear with manual screening Comment . [facility] Comment on above: QuantiFERON-TB Gold Plus is a qualitative indirect test forM tuberculosis infection (including disease) and isintended for use in conjunction with risk assessment,radiography, and other medical and diagnostic evaluations.The QuantiFERON-TB Gold Plus result is determined bysubtracting the Nil value from either TB antigen (Ag)value. The Mitogen tube serves as a control for the test. Thin prep Papanicolaou smear with manual screening 0.02 IU/mL . [facility] Thin prep Papanicolaou smear with manual screening 1.25 IU/mL . [facility] Thin prep Papanicolaou smear with manual screening > 10.00 IU/mL . [facility] Thin prep Papanicolaou smear with manual screening Negative Negative [facility] Comment on above: No response to M tub erculosis antigens detected.Infection with M tuberculosis is unlikely, but high riskindividuals should be considered for additional testing(ATS/IDSA/CDC Clinical Practice Guidelines, 2017). Thereference range is an Antigen minus Nil result of <0.35IU/mL.The specimen received for QuantiFERON testing was incubatedby the ordering institution. Specific procedures outlinedin our Directory of Services and in the package insert forthe QuantiFERON Gold (In Tube) test must be followed toenable for proper stimulation of cells for the productionof interferon gamma. Chemiluminescence immunoassaymethodology Thin prep Papanicolaou smear with manual screeningOrdered By: Sarahi Bone on 11-13-2022 Thin prep Papanicolaou smear with manual screening 9 5-[address] [facility] Total protein bloodOrdered B y: Gino Briscoe on 11-13-2022 Protein [Mass/Vol] 5.5 g/dL 6.0-8.5 [facility] Basophil percentageOrdered B y: Sarahi Bone on 11-12-2022 Basophil percentage 2.6 mg/dL 2.5-4.9 [facility] Laboratory - Chemistry and C hemistry - challengeOrdered By: Sarahi Bone on 11-12-2022 Magnesium [Mass/Vol] 1.6 mg/dL 1.6-2.6 [facility] Serum or plasma albumin christy urement (mass/volume)Ordered By: Sarahi Bone on 11-12-2022 Albumin [Mass/Vol] 2.5 g/dL 3.2-5.0 [facility] Culture, urineOrdered By: Dr Cristhian Mukherjee on 11-11-2022 Bacteria identified Cx Nom (U) Culture exhibits no growth. [facility] Basophil percentageOrdered B y: Dr. Espana on 11-10-2022 Bilirubin [Mass/Vol] 0.20 mg/dL 0.20-1.00 [facility] Comment on above: For patients on eltr ombopag therapy, use of Dimension Bowman TBIL is not recommended. Protein [Mass/Vol] 6.4 g/dL 6.4-8.2 [facility] Laboratory - Chemistry and C hemistry - challengeOrdered By: Dr. Espana on 11-10-2022 ALP [Catalytic activity/Vol] 74 U/L 45-[address] [facility] ALT [Catalytic activity/Vol] 24 U/L 16-[address] [facility] Globulin (S) [Mass/Vol] 3.7 g/dL 2.2-4.2 [facility] No Panel InformationOrdered By: Dr. Alcazar on 11-10-2022 Methicillin-Resist S.aureus DNA PCR Negative Negative [facility] Serum or plasma albumin/glob ulin mass ratioOrdered By: Dr. Espana on 11-10-2022 Albumin/Globulin [Mass ratio] 0.7 {ratio} 0.9-2.[address] [facility] Thin prep Papanicolaou smear with manual screeningOrdered By: Dr. Espana on 11-10-2022 Thin prep Papanicolaou smear with manual screening 118 U/L 15-[address] [facility] Absolute lymphocyte countOrd ered By: Dr. Mukherjee on 11-09-2022 Lymphocytes Auto (Unsp spec) [#/Vol] 1.80 10*3/uL 0.83-4.[address] [facility] Basophil percentageOrdered B y: Dr. Mukherjee on 11-09-2022 Lactate [Moles/Vol] 1.1 mmol/L 0.4-2.0 [facility] Basophil percentage 0-5 SEEN /hpf 0-5 [facility] Ammonia (P) [Moles/Vol] 28.0 umol/L 11-[address] [facility] Lactate [Moles/Vol] 8.5 mmol/L 0.4-2.0 [facility] Comment on above: Critical Result(s) C alled at: 03:51:22 11/09/2022 by: Ramon Lieberman. BENSON (RN) (ED) Results read back by same. Basophils/100 WBC (Bld) 0.9 % 0-1 [facility] Bilirubin [Mass/Vol] 0.40 mg/dL 0.20-1.00 [facility] Comment on above: For patients on eltr ombopag therapy, use of Dimension Bowman TBIL is not recommended. Chloride [Moles/Vol] 89 mmol/L 98-107 [facility] Eosinophils/100 WBC (Bld) 0.2 % 0-[address] [facility] Glucose [Mass/Vol] 257 mg/dL 74-106 [facility] Comment on above: Glucose result great er than or equal to 200 mg/dLsuggests DIABETES MELLITUS per A.D.A. criteria. Neutrophils (Bld) [#/Vol] 18.5 10*3/uL 2.0-7.[address] [facility] Neutrophils/100 WBC (Bld) 84.5 % 47-[address] [facility] Potassium [Moles/Vol] 3.0 mmol/L 3.5-5.1 [facility] Protein [Mass/Vol] 10.8 g/dL 6.4-8.2 [facility] Sodium [Moles/Vol] 128 mmol/L 136-145 [facility] WBC (Bld) [#/Vol] 21.9 10*3/uL 4.4-11.0 [facility] Bilirubin Test strip Ql (U)O rdered By: Dr. Mukherjee on 11-09-2022 Bilirubin Ql (U) 3 mg/dL Negative [facility] Comment on above: COLOR OF URINE MAY A FFECT DIPSTICK RESULTS. Blood erythrocytes count (nu mber/volume)Ordered By: Dr. Mukherjee on 11-09-2022 RBC (Bld) [#/Vol] 4.55 10*6/uL 4.6-6.2 [facility] Blood hemoglobin measurement (mass/volume)Ordered By: Dr. Mukherjee on 11-09-2022 Hemoglobin (Bld) [Mass/Vol] 15.1 g/dL 13.0-16.[address] [facility] Blood lymphocytes/100 leukoc ytesOrdered By: Dr. Mukherjee on 11-09-2022 Lymphocytes/100 WBC (Bld) 8.2 % 19-[address] [facility] Blood monocytes/100 leukocyt esOrdered By: Dr. Mukherjee on 11-09-2022 Monocytes/100 WBC (Bld) 2.8 % 0-10 [facility] Blood platelet adequacy dete ction by light microscopyOrdered By: Dr. Mukherjee on 11-09-2022 Platelets LM Ql (Bld) [employer] INC ADEQ [facility] Blood platelet mean volumeOr dered By: Dr. Mukherjee on 11-09-2022 Platelet mean volume (Bld) [Entitic vol] 10.0 fL 6.2-12.[address] [facility] Determination of erythrocyte mean corpuscular volume (MCV)Ordered By: Dr. Mukherjee on 11-09-2022 MCV (RBC) [Entitic vol] 102.0 fL 80-94 [facility] Glucose Glucometer (BldC) [M ass/Vol]Ordered By: Dr. Mukherjee on 11-09-2022 Glucose [Mass/Vol] 183 mg/dL 74-106 [facility] Comment on above: MANAGEMENT OF PATIEN T CARE PER NURSING PROTOCOL HCO3 (BldA) [Moles/Vol]Order ed By: Dr. Mukherjee on 11-09-2022 HCO3 (Bld) [Moles/Vol] 13 mmol/L 22-26 [facility] Hematocrit Auto (Bld) [Volum e fraction]Ordered By: Dr. Mukherjee on 11-09-2022 Hematocrit (Bld) [Volume fraction] 46.4 % 40-[address] [facility] Hyaline casts LM.LPF (Urine sed) [#/Area]Ordered By: Dr. Mukherjee on 11-09-2022 Hyaline casts (Urine sed) [#/Area] 0 /[LPF] 0-[address] [facility] INR in Blood by Coagulation assayOrdered By: Dr. Mukherjee on 11-09-2022 INR Coag (Bld) [Relative time] 1.2 {INR} [facility] Influenza virus A and B and SARS-CoV-2 (COVID-19) Ag panel - Upper respiratory specimOrdered By: Dr. Mukherjee on 11-09-2022 SARS-CoV-2 (COVID-19) RNA FRANCA+probe Ql (Resp) [facility] Ketones Test strip Ql (U)Ord ered By: Dr. Mukherjee on 11-09-2022 Ketones Ql (U) Negative Negative [facility] Laboratory - Chemistry and C hemistry - challengeOrdered By: Dr. Alcazar on 11-09-2022 Lipase [Catalytic activity/Vol] 295 U/L 73-[address] [facility] Laboratory - Chemistry and C hemistry - challengeOrdered By: Dr. Mukherjee on 11-09-2022 CO2 [Moles/Vol] 14 mmol/L 23-[address] [facility] ALP [Catalytic activity/Vol] 152 U/L 45-[address] [facility] ALT [Catalytic activity/Vol] 29 U/L 16-[address] [facility] CO2 [Moles/Vol] 14.0 mmol/L 21.0-32.[address] [facility] Globulin (S) [Mass/Vol] 6.0 g/dL 2.2-4.2 [facility] Urea nitrogen/Creatinine [Mass ratio] 5.0 mg/mg 10-[address] [facility] Laboratory - CoagulationOrde red By: Dr. Mukherjee on 11-09-2022 aPTT Coag (Bld) [Time] 29.2 s 24.1-36.2 [facility] PT Coag (PPP) [Time] 14.6 s 11.7-14.9 [facility] Laboratory - Hematology and Cell countsOrdered By: Dr. Mukherjee on 11-09-2022 Erythrocyte distribution width (RBC) [Entitic vol] 49.1 fL 35.1-43.[address] [facility] Erythrocyte distribution width (RBC) [Ratio] 13.1 % 11.6-14.[address] [facility] Immature granulocytes/100 WBC (Bld) 3.400 % 0.0-0.[address] [facility] Comment on above: IG% - Immature Granu locytes (promyelocytes, myelocytes and metamyelocytes) > 1% indicates that a LEFT SHIFT is Present. MCH (RBC) [Entitic mass] 33.2 pg 27.0-32.[address] [facility] Nucleated RBC/100 WBC (Bld) [Ratio] 0 % 0-[address] [facility] MCHC Auto (RBC) [Mass/Vol]Or dered By: Dr. Mukherjee on 11-09-2022 MCHC (RBC) [Mass/Vol] 32.5 g/dL 32-36 [facility] Macrocytes detectionOrdered By: Dr. Mukherjee on 11-09-2022 Macrocytes Ql (Bld) 1+ [facility] Mucus LM Ql (Urine sed)Order ed By: Dr. Mukherjee on 11-09-2022 Mucus Ql (Urine sed) 0 SEEN /hpf [facility] Nitrite Test strip Ql (U)Ord ered By: Dr. Mukherjee on 11-09-2022 Nitrite Ql (U) Negative Negative [facility] No Panel InformationOrdered By: Dr. Alcazar on 11-09-2022 Troponin I High Sensitivity 9 pg/mL 3.0-78.[address] [facility] Comment on above: Please Note: New Shirley t Units and Gender Specific Reference Ranges. For more information see Policy Stat Procedure Bowman High Sensitivity Troponin (TNIH) and attachments. No Panel InformationOrdered By: Dr. Mukherjee on 11-09-2022 Ethyl Alcohol Level < 3.0 mg/dL [facility] Comment on above: The serum:whole bloo d ethanol ratio is approximately 1.14and varies slightly with hematocrit. Medical Alcohol reference interval and critical value innon-tolerant individuals; 50 - 100 Impairment 100 Intoxication 100 - 250 Severe Poisoning 250 - 400 Deep/possible fatal coma Bed Mix Venous Bld PCO2 at Pat Temp 36.3 mmHg 41-[address] [facility] Bld Gas Crit Called To/Read Back By Yes [facility] Blood Gas Notified Time 02:59:16 [facility] Blood Gas Notified Whom valerie Ling [facility] Blood Gas Specimen Type YAO [facility] Oxygen Delivery Device NRB [facility] Venous Blood Base Excess -16 mmol/L -1.0-3.[address] [facility] Estimated Creatinine Clearance Calc 7.84 ml/min [facility] Estimated GFR (MDRD) Amer 6 mL/min >[address] [facility] Comment on above: GFR Calc Estimated GFR (MDRD) Non-Af Amer 5 mL/min >[address] [facility] Comment on above: Non- GFR Calc PO2 venousOrdered By: Dr. Magdalena brink on 11-09-2022 Oxygen (BldV) [Partial pressure] 40 mm[Hg] 25-[address] [facility] Platelets bldOrdered By: Dr. Mukherjee on 11-09-2022 Platelets (Bld) [#/Vol] 802 10*3/uL 150-[address] [facility] Protein Test strip Ql (U)Ord ered By: Dr. Mukherjee on 11-09-2022 Protein Ql (U) 30 mg/dl Negative [facility] Review by pathologistOrdered By: Dr. Mukherjee on 11-09-2022 Pathologist review Vahe (Unsp spec) [Interp] Melissa rome [facility] Pathologist review Vahe (Unsp spec) [Interp] Reviewed [facility] Comment on above: Previous reported re sult: Melissa rome Edited by: RGOOD on 11/09/22:1322Neutrophilic leukocytosis with left shift. Macrocytosis.Thrombocytosis.Clinical correlation necessary.Flaco Crenshaw M.D. 11/09/22 AMENDED REPORT 11/09/22 1322 PATH REV previously reported as: Melissa wild Serum or plasma albumin christy urement (mass/volume)Ordered By: Dr. Mukherjee on 11-09-2022 Albumin [Mass/Vol] 4.8 g/dL 3.2-5.0 [facility] Serum or plasma albumin/glob ulin mass ratioOrdered By: Dr. Mukherjee on 11-09-2022 Albumin/Globulin [Mass ratio] 0.8 {ratio} 0.9-2.[address] [facility] Serum or plasma calcium christy urement (mass/volume)Ordered By: Dr. Mukherjee on 11-09-2022 Calcium [Mass/Vol] 9.7 mg/dL 8.5-10.1 [facility] Serum or plasma creatinine m easurement (mass/volume)Ordered By: Dr. Mukherjee on 11-09-2022 Creatinine [Mass/Vol] 10.90 mg/dL 0.70-1.30 [facility] Comment on above: Critical Result(s) C alled at: 03:45:05 11/09/2022 by: Ramon Lieberman. USHA CabelloRN) (ED) Results read back by same.The validity of the calculated GFR & GFRAA in patients over 70 years has not been determined. Clinical correlation is essential. Serum or plasma urea nitroge n measurement (mass/volume)Ordered By: Dr. Mukherjee on 11-09-2022 Urea nitrogen [Mass/Vol] 55 mg/dL 7-[address] [facility] Squamous epithelial cells de tection in urine sediment by light microscopyOrdered By: Dr. Mukherjee on 11-09-2022 Epithelial cells.squamous LM Ql (Urine sed) 0 SEEN /hpf 0-[address] [facility] Thin prep Papanicolaou smear with manual screeningOrdered By: Dr. Mukherjee on 11-09-2022 Thin prep Papanicolaou smear with manual screening 38 U/L 15-[address] [facility] Thin prep Papanicolaou smear with manual screening 25 5-[address] [facility] Urine blood detectionOrdered By: Dr. Mukherjee on 11-09-2022 RBC Ql (U) 10 /ul Negative [facility] RBC Ql (U) 0-5 SEEN /hpf 0-[address] [facility] Urine clarityOrdered By: Dr. Mukherjee on 11-09-2022 Clarity (U) Clear Clear [facility] Urine color determinationOrd ered By: Dr. Mukherjee on 11-09-2022 Color (U) Yellow Yellow [facility] Urine glucose detectionOrder ed By: Dr. Mukherjee on 11-09-2022 Glucose Ql (U) Normal mg/dl Normal [facility] Urine leukocyte esterase det ection by dipstickOrdered By: Dr. Mukherjee on 11-09-2022 Leukocyte esterase Test strip Ql (U) 25 /ul Negative [facility] Urine pHOrdered By: Dr. Latonya peñaloza on 11-09-2022 pH (U) 5.0 [pH] 5.0 - 8.[address] [facility] Urine sediment bacteria coun t by microscopy (number/high power field)Ordered By: Dr. Mukherjee on 11-09-2022 Bacteria LM.HPF (Urine sed) [#/Area] RARE /hpf None Seen [facility] Urine specific gravity measu rementOrdered By: Dr. Mukherjee on 11-09-2022 Specific gravity (U) [Rel density] 1.030 1.002-1.[address] [facility] Urobilinogen Auto test strip Ql (U)Ordered By: Dr. Mukherjee on 11-09-2022 Urobilinogen Ql (U) Normal mg/dl Normal [facility] Vital signsOrdered By: Dr. Anuradha kim on 11-09-2022 Oxygen saturation in Blood 61 % 50-[address] [facility] Whole blood hemoglobin A1c/t otal hemoglobin ratio (mass fraction)Ordered By: Dr. Espana on 11-09-2022 HbA1c (Bld) [Mass fraction] 5.1 % 3.8-5.[address] [facility] Comment on above: Normal < 5.7 % Predi abetic 5.7 - 6.4 % Diabetic >or= 6.5 % Please note range changes. pH measurementOrdered By: Dr Cristhian Mukherjee on 11-09-2022 pH (Unsp spec) 7.17 [pH] 7.32-7.[address] [facility] Absolute lymphocyte counton 04-22-2022 Lymphocytes Auto (Unsp spec) [#/Vol] 1.82 10*3/uL 0.83-4.[address] [facility] Work Phone: Basophil percentageon 2021 Basophils/100 WBC (Bld) 1.1 % 0-1 [facility] Work Phone: Bilirubin [Mass/Vol] 0.40 mg/dL 0.20-1.00 [facility] Work Phone: Comment on above: For patients on eltr ombopag therapy, use of Dimension Bowman TBIL is not recommended. Chloride [Moles/Vol] 105 mmol/L 98-107 [facility] Work Phone: Cholesterol [Mass/Vol] 170 mg/dL <200 [facility] Work Phone: Comment on above: <200 mg/dL Desirable 200-240 mg/dL Borderline >240 mg/dL High Risk Eosinophils/100 WBC (Bld) 4.4 % 0-[address] [facility] Work Phone: Glucose [Mass/Vol] 85 mg/dL 74-106 [facility] Work Phone: Neutrophils (Bld) [#/Vol] 3.5 10*3/uL 2.0-7.[address] [facility] Work Phone: Neutrophils/100 WBC (Bld) 54.3 % 47-[address] [facility] Work Phone: Potassium [Moles/Vol] 3.7 mmol/L 3.5-5.1 [facility] Work Phone: Protein [Mass/Vol] 7.0 g/dL 6.4-8.2 [facility] Work Phone: Sodium [Moles/Vol] 138 mmol/L 136-145 [facility] Work Phone: [phone] Triglyceride [Mass/Vol] 145 mg/dL <199 [facility] Work Phone: Comment on above: The drugs N-Acetylcy steine and Metamizole may falsely depress this assay.Serum Triglycerides Reference Interval Normal <150 mg/dL Borderline high 150 - 199 mg/dL High 200 - 499 mg/dL Very High > or = 500 mg/dL WBC (Bld) [#/Vol] 6.4 10*3/uL 4.4-11.0 [facility] Work Phone: Blood erythrocytes count (nu mber/volume)on 04-22-2022 RBC (Bld) [#/Vol] 3.82 10*6/uL 4.6-6.2 [facility] Work Phone: Blood hemoglobin measurement (mass/volume)on 04-22-2022 Hemoglobin (Bld) [Mass/Vol] 13.2 g/dL 13.0-16.[address] [facility] Work Phone: Blood lymphocytes/100 leukoc yteson 04-22-2022 Lymphocytes/100 WBC (Bld) 28.5 % 19-[address] [facility] Work Phone: Blood monocytes/100 leukocyt eson 04-22-2022 Monocytes/100 WBC (Bld) 11.4 % 0-10 [facility] Work Phone: Blood platelet mean volumeon 04-22-2022 Platelet mean volume (Bld) [Entitic vol] 9.3 fL 6.2-12.[address] [facility] Work Phone: Determination of erythrocyte mean corpuscular volume (MCV)on 04-22-2022 MCV (RBC) [Entitic vol] 103.7 fL 80-94 [facility] Work Phone: Hematocrit Auto (Bld) [Volum e fraction]on 04-22-2022 Hematocrit (Bld) [Volume fraction] 39.6 % 40-[address] [facility] Work Phone: Laboratory - Chemistry and C hemistry - challengeon 04-22-2022 ALP [Catalytic activity/Vol] 88 U/L 45-[address] [facility] Work Phone: ALT [Catalytic activity/Vol] 33 U/L 16-[address] [facility] Work Phone: CO2 [Moles/Vol] 25.0 mmol/L 21.0-32.[address] [facility] Work Phone: [phone] Cobalamin (Vitamin B12) [Mass/Vol] 440 pg/mL 211-[address] [facility] Work Phone: [phone] Free T4 [Mass/Vol] 0.76 ng/dL 0.76-1.46 [facility] [place] [place] Work Phone: Globulin (S) [Mass/Vol] 3.3 g/dL 2.2-4.2 [facility] Work Phone: Magnesium [Mass/Vol] 1.8 mg/dL 1.6-2.6 [facility] Work Phone: Urea nitrogen/Creatinine [Mass ratio] 17.2 mg/mg 10-[address] [facility] Work Phone: Laboratory - Hematology and Cell countson 04-22-2022 Erythrocyte distribution width (RBC) [Entitic vol] 49.1 fL 35.1-43.[address] [facility] Work Phone: Erythrocyte distribution width (RBC) [Ratio] 12.9 % 11.6-14.[address] [facility] Work Phone: Immature granulocytes/100 WBC (Bld) 0.300 % 0.0-0.[address] [facility] Work Phone: Comment on above: IG% - Immature Granu locytes (promyelocytes, myelocytes and metamyelocytes) > 1% indicates that a LEFT SHIFT is Present. MCH (RBC) [Entitic mass] 34.6 pg 27.0-32.[address] [facility] Work Phone: Nucleated RBC/100 WBC (Bld) [Ratio] 0 % 0-[address] [facility] Work Phone: MCHC Auto (RBC) [Mass/Vol]on 04-22-2022 MCHC (RBC) [Mass/Vol] 33.3 g/dL 32-[address] [facility] Work [facility]: No Panel Informationon 04-22 Estimated GFR (MDRD) Amer 128 mL/min >[address] [facility] Work Phone: Comment on above: GFR Calc Estimated GFR (MDRD) Non-Af Amer 106 mL/min >[address] [facility] Work Phone: Comment on above: Non- GFR Calc Thyroid Stimulating Hormone (TSH) 2.15 uIU/mL 0.358-3.[address] [facility] Work Phone: Vitamin B6 Level 6.8 ug/L 3.4-65.[address] [facility] Work Phone: Comment on above: Deficiency: <3.4 Mar ginal: 3.4 - 5.1 Adequate: >5.1 Whole Blood Vitamin B1 Level 195.2 nmol/L 66.5-200.[address] [facility] Work Phone: Comment on above: Performed at: - [address] [id number] Director: Edmundo Panda MD, Phone: [phone] Platelets bldon 04-22-2022 Platelets (Bld) [#/Vol] 381 10*3/uL 150-[address] [facility] Work Phone: Serum or plasma albumin christy urement (mass/volume)on 04-22-2022 Albumin [Mass/Vol] 3.7 g/dL 3.2-5.0 [facility] Work Phone: Serum or plasma albumin/glob ulin mass ratioon 04-22-2022 Albumin/Globulin [Mass ratio] 1.1 {ratio} 0.9-2.[address] [facility] Work Phone: Serum or plasma calcium christy urement (mass/volume)on 04-22-2022 Calcium [Mass/Vol] 8.6 mg/dL 8.5-10.1 [facility] Work Phone: Serum or plasma cholesterol in HDL measurement (mass/volume)on 04-22-2022 Cholesterol in HDL [Mass/Vol] 68 mg/dL >[address] [facility] Work Phone: Comment on above: The drugs N-Acetylcy steine and Metamizole may falsely depress this assay. Reference Range HDL <40 mg/dL Low HDL Cholesterol HDL >or= 60 mg/dL High HDL Cholesterol Serum or plasma cholesterol in VLDL measurement (mass/volume)on 04-22-2022 Cholesterol in VLDL [Mass/Vol] 29 mg/dL 5-[address] [facility] Work Phone: Serum or plasma creatinine m easurement (mass/volume)on 04-22-2022 Creatinine [Mass/Vol] 0.81 mg/dL 0.70-1.30 [facility] Work Phone: Comment on above: The validity of the calculated GFR & GFRAA in patients over 70 years has not been determined. Clinical correlation is essential. Serum or plasma low density lipoprotein (LDL) cholesterol measurement (mass/volume)on 04-22-2022 Cholesterol in LDL [Mass/Vol] 73 mg/dL 0-[address] [facility] Work Phone: Serum or plasma urea nitroge n measurement (mass/volume)on 04-22-2022 Urea nitrogen [Mass/Vol] 14 mg/dL 7-[address] [facility] Work Phone: Serum or plasma uric acid me asurement (mass/volume)on 04-22-2022 Urate [Mass/Vol] 4.1 mg/dL 3.5-7.[address] [facility] Work Phone: Comment on above: The drugs N-Acetylcy steine and Metamizole may falsely depress this assay. Thin prep Papanicolaou smear with manual screeningon 04-22-2022 Thin prep Papanicolaou smear with manual screening 27 U/L 15-[address] [facility] Work Phone: Thin prep Papanicolaou smear with manual screening 8 5-[address] [facility] Work Phone: XR KNEE 1 OR 2 VIEWS RIGHTon 07-19-2017 XR KNEE 1 OR 2 VIEWS RIGHT ORIGINALXR KNEE 1 OR 2 VIEWS RIGHT CLINICAL STATEMENT: z02.71, determine disability, chronic pain COMPARISON: None FINDINGS: No acute fracture or dislocation is identified. No joint effusion is seen. The joint spaces are maintained. There is no radiopaque foreign body. Lateral view is rotated. IMPRESSION: No acute fracture or dislocation. Interpreted By: Anabelle Phoenix MDPreliminary Report By: Anabelle Phoenix MDElectronically Signed By: Anabelle Phoenix MD Dictated Date: 07/19/2017 2:19:29 PM Prelim Date: 07/19/2017 2:19:29 PM Sign Date: 07/19/2017 2:20:23 PM Normal [facility] ([place]) XR SHOULDER MINIMUM 2 VIEWS LEFTon 07-19-2017 XR SHOULDER MINIMUM 2 VIEWS LEFT ORIGINALXR SHOULDER MINIMUM 2 VIEWS LEFT CLINICAL STATEMENT: z02.71, chronic pain, determine disability COMPARISON: None FINDINGS: No acute fracture or dislocation is identified. There is chronic appearing altered morphology of the humeral head and neck which may represent sequela of a remote trauma; correlation is needed. Ecty-nq-yrvlsuju degenerative change of the acromioclavicular joint is demonstrated. The included thoracic structures are normal. IMPRESSION: No acute fracture or dislocation. A remote healed fracture deformity of the proximal humerus is questioned. Interpreted By: Anabelle Phoenix MDPreliminary Report By: Anabelle Phoenix MDElectronically Signed By: Anabelle Phoenix MD Dictated Date: 07/19/2017 2:20:36 PM Prelim Date: 07/19/2017 2:20:36 PM Sign Date: 07/19/2017 2:22:39 PM Normal [facility] ([place]) XR SPINE LUMBAR AP/LATon XR SPINE LUMBAR AP/LAT ORIGINALXR SPINE LUMBAR AP/LAT CLINICAL STATEMENT: z02.71chronic pain COMPARISON: None FINDINGS:5 lumbar type vertebral bodies are present. There is minimal degenerative change with endplate sclerosis and anterior lipping. No compression deformity is identified. There is minimal anterior height loss in the thoracolumbar junction involving the T11 and T12 vertebral bodies. Soft tissue structures are unremarkable. IMPRESSION:Minimal degenerative change Interpreted By: Dolly Lopez MDPreliminary Report By: Dolly Lopez MDElectronically Signed By: Dolly Lopez MD Dictated Date: 07/19/2017 3:12:06 PM Prelim Date: 07/19/2017 3:12:06 PM Sign Date: 07/19/2017 3:12:47 PM Normal [facility] ([place]) Vital Signs Date Time Vital Sign Value Performing Clinician Jessica mccurdy 11-06-2024 16:18-0400 Diastolic blood pressure 75 mm[Hg] Anjelica Jack [employer] AD[employer]ER[employer] ATTORNEY Work Phone: [facility] 11-06-2024 16:18-0400 Systolic blood pressure 132 mm[Hg] Anjelica Reinaldooble [employer] B[employer]KE ADJUSTER.INSURANCE DEFENSE ATTORNEY Work Phone: [facility] 11-06-2024 16:10-0400 Body mass index (BMI) [Ratio] 25.07 kg/m2 Anjelica Munoz [employer] B[employer]KE ADJUSTER.INSURANCE DEFENSE ATTORNEY Work Phone: [facility] 11-06-2024 16:10-0400 Body weight 77 kg Anjelica Munoz [employer] BRAKE ADJUSTER.INSURANCE DEFENSE ATTORNEY Work Phone: [facility] 09-09-2023 17:25-0500 Body weight 70.31 kg Anjelica Munoz [employer] BRAKE ADJUSTER.INSURANCE DEFENSE ATTORNEY Work Phone: [facility] 09-09-2023 17:25-0500 Diastolic blood pressure 60 mm[Hg] Anjelica Reinaldooble [employer] BRAKE ADJUSTER.INSURANCE DEFENSE ATTORNEY Work Phone: [facility] 09-09-2023 17:25-0500 Heart rate 100 /min Anjelica Reinaldooble [employer] BRAKE ADJUSTER.INSURANCE DEFENSE ATTORNEY Work Phone: [facility] 09-09-2023 17:25-0500 Respiratory rate 14 /min Anjelica Munoz [employer] BRAKE ADJUSTER.INSURANCE DEFENSE ATTORNEY Work Phone: [facility] 09-09-2023 17:25-0500 Systolic blood pressure 100 mm[Hg] Anjelica Reinaldooble [employer] BRAKE ADJUSTER.INSURANCE DEFENSE ATTORNEY Work Phone: [facility] 06-07-2023 15:16-0400 Body weight 68.95 kg Anjelica Munoz [employer] BRAKE ADJUSTER.INSURANCE DEFENSE ATTORNEY Work Phone: [facility] 06-07-2023 15:16-0400 Diastolic blood pressure 72 mm[Hg] Anjelica Knoble [employer] BRAKE ADJUSTER.INSURANCE DEFENSE ATTORNEY Work Phone: [facility] 06-07-2023 15:16-0400 Heart rate 90 /min Anjelicadoron Munoz [employer] BRAKE ADJUSTER.INSURANCE DEFENSE ATTORNEY Work Phone: [facility] 06-07-2023 15:16-0400 Respiratory rate 16 /min Anjelica Munoz [employer] BRAKE ADJUSTER.INSURANCE DEFENSE ATTORNEY Work Phone: [facility] 06-07-2023 15:16-0400 Systolic blood pressure 110 mm[Hg] Anjelica Munoz [employer] BRAKE ADJUSTER.INSURANCE DEFENSE ATTORNEY Work Phone: [facility] 03-03-2023 14:56-0400 Body height 175.3 cm Celina Tesfaye MD Work Phone: [facility] 03-03-2023 14:56-0400 Body weight 78.93 kg Celina Tesfaye MD Work Phone: [facility] 03-03-2023 14:56-0400 Diastolic blood pressure 70 mm[Hg] Celina Tesfaye MD Work Phone: [facility] 03-03-2023 14:56-0400 Heart rate 92 /min Celina Tesfaye MD Work Phone: [facility] 03-03-2023 14:56-0400 Respiratory rate 16 /min Celina Tesfaye MD Work Phone: [facility] 03-03-2023 14:56-0400 Systolic blood pressure 116 mm[Hg] Celina Tesfaye MD Work Phone: [facility] 01-05-2023 12:13-0400 Body weight 82.1 kg Anjelica Munoz [employer] BRAKE ADJUSTER.INSURANCE DEFENSE ATTORNEY Work Phone: [facility] 01-05-2023 12:13-0400 Diastolic blood pressure 76 mm[Hg] Anjelica Munoz [employer] BRAKE ADJUSTER.INSURANCE DEFENSE ATTORNEY Work Phone: [facility] 01-05-2023 12:13-0400 Heart rate 92 /min Anjelica Munoz [employer] BRAKE ADJUSTER.INSURANCE DEFENSE ATTORNEY Work Phone: [facility] 01-05-2023 12:13-0400 Respiratory rate 14 /min Anjelica Munoz [employer] BRAKE ADJUSTER.INSURANCE DEFENSE ATTORNEY Work Phone: [facility] 01-05-2023 12:13-0400 Systolic blood pressure 120 mm[Hg] Anjelica Munoz APRN.CNP Work Phone: [facility] 11-19-2022 14:00-0400 Body temperature 98.1 [degF] Dr. Zia Osman Work Phone: [facility] 11-19-2022 14:00-0400 Diastolic blood pressure 85 mm[Hg] Dr. Zia Osman Work Phone: [facility] 11-19-2022 14:00-0400 Heart rate 90 /min Dr. Zia Osman Work Phone: [facility] 11-19-2022 14:00-0400 Respiratory rate 16 /min Dr. Zia Osman Work Phone: [facility] 11-19-2022 14:00-0400 SaO2% (BldA) [Mass fraction] 100 % Dr. Zia Osman Work Phone: [facility] 11-19-2022 14:00-0400 Systolic blood pressure 140 mm[Hg] Dr. Zia Osman Work Phone: [facility] 11-19-2022 09:00-0400 Body mass index (BMI) [Ratio] 30.8 kg/m2 Dr. Zia Osman Work Phone: [facility] 11-19-2022 09:00-0400 Body weight 94.[address] Zia Osman Work Phone: [facility] 11-19-2022 05:23-0400 Body temperature 97.9 [degF] Dr. Zia Osman Work Phone: [facility] 11-19-2022 05:23-0400 Diastolic blood pressure 72 mm[Hg] Dr. Zia Osman Work Phone: [facility] 11-19-2022 05:23-0400 Heart rate 88 /min Dr. Zia Osman Work Phone: [facility] 11-19-2022 05:23-0400 Respiratory rate 18 /min Dr. Zia Osman Work Phone: [facility] 11-19-2022 05:23-0400 SaO2% (BldA) [Mass fraction] 98 % Dr. Zia Osman Work Phone: [facility] 11-19-2022 05:23-0400 Systolic blood pressure 127 mm[Hg] Dr. Zia Osman Work Phone: [facility] 11-18-2022 11:40-0400 Body height 175.[address] Zia Osman Work Phone: [facility] 11-17-2022 18:35-0400 Body temperature 98.6 [degF] Dr. Zia Osman Work Phone: [facility] 11-17-2022 18:35-0400 Diastolic blood pressure 79 mm[Hg] Dr. Zia Osman Work Phone: [facility] 11-17-2022 18:35-0400 Heart rate 92 /min Dr. Zia Osman Work Phone: [facility] 11-17-2022 18:35-0400 Respiratory rate 18 /min Dr. Zia Osman Work Phone: [facility] 11-17-2022 18:35-0400 SaO2% (BldA) [Mass fraction] 96 % Dr. Zia Osman Work Phone: [facility] 11-17-2022 18:35-0400 Systolic blood pressure 125 mm[Hg] Dr. Zia Osman Work Phone: [facility] 11-17-2022 14:39-0400 Body height 175.[address] Zia Osman Work Phone: [facility] 11-17-2022 14:39-0400 Body mass index (BMI) [Ratio] 30.5 kg/m2 Dr. Zia Osman Work Phone: [facility] 11-17-2022 14:39-0400 Body weight 93.[address] Zia Osman Work Phone: [facility] 11-13-2022 08:05-0400 Body temperature 97.3 [degF] Dr. Zia Osman Work Phone: [facility] 11-13-2022 08:05-0400 Diastolic blood pressure 79 mm[Hg] Dr. Zia Osman Work Phone: [facility] 11-13-2022 08:05-0400 Heart rate 86 /min Dr. Zia Osman Work Phone: [facility] 11-13-2022 08:05-0400 Respiratory rate 19 /min Dr. Zia Osman Work Phone: [facility] 11-13-2022 08:05-0400 SaO2% (BldA) [Mass fraction] 97 % Dr. Zia Osman Work Phone: [facility] 11-13-2022 08:05-0400 Systolic blood pressure 125 mm[Hg] Dr. Zia Osman Work Phone: [facility] 11-12-2022 06:00-0400 Body mass index (BMI) [Ratio] 27.5 kg/m2 Dr. Zia Osman Work Phone: [facility] 11-12-2022 06:00-0400 Body weight 84.[address] Zia Osman Work Phone: [facility] 11-11-2022 09:26-0400 Body height 175.[address] Zia Osman Work Phone: [facility] 11-09-2022 22:00-0400 Inhaled oxygen flow rate 2 L/min Dr. Zia Osman Work Phone: [facility] 11-09-2022 05:08-0400 Body temperature 96.8 [degF] Dr. Zia Osman Work Phone: [facility] 11-09-2022 05:08-0400 Diastolic blood pressure 53 mm[Hg] Dr. Zia Osman Work Phone: [facility] 11-09-2022 05:08-0400 Heart rate 119 /min Dr. Zia Osman Work Phone: [facility] 11-09-2022 05:08-0400 Respiratory rate 17 /min Dr. Zia Osman Work Phone: [facility] 11-09-2022 05:08-0400 SaO2% (BldA) [Mass fraction] 99 % Dr. Zia Osman Work Phone: [facility] 11-09-2022 05:08-0400 Systolic blood pressure 95 mm[Hg] Dr. Zia Osman Work Phone: [facility] 11-09-2022 03:35-0400 Inhaled oxygen flow rate 15 L/min Dr. Zia Osman Work Phone: [facility] 11-09-2022 02:19-0400 Body height 175.[address] Zia Osman Work Phone: [facility] 11-09-2022 02:19-0400 Body mass index (BMI) [Ratio] 28.3 kg/m2 Dr. Zia Osman Work Phone: [facility] 11-09-2022 02:19-04[address] Body weight [address] Zia Osman Work Phone: [facility] Encounters Encounter Date Encounter Type Care Provider Facility Start: 02-17-2025 End: 02-19-2025 Refill Celina Tesfaye MD Work Phone: [facility] Comment on above: Refill Request Start: 11-21-2024 End: 11-21-2024 Refill Celina Tesfaye MD Work Phone: [facility] Comment on above: Refill Request Start: 11-07-2024 End: 11-21-2024 Follow-up encounter Anjelica Munoz APRN.CNP Work Phone: [facility] Comment on above: Results Start: 11-06-2024 End: 11-06-2024 ambulatory ANJELICA MUNOZ Facility:[facility] Start: 11-06-2024 Encounter for genera l adult medical examination without abnormal findings ANJELICA MUNOZ [facility] Start: 11-06-2024 End: 11-06-2024 Patient encounter procedure Anjelica Munoz APRN.[employer] Work Phone: [facility] Comment on above: Wellness examination (Primary Dx); Gastroesophageal reflux disease, unspecified whether esophagitis present; Essential hypertension, benign; Hypomagnesemia; Gout, unspecified cause, unspecified chronicity, unspecified site; Screening for diabetes mellitus; Medication management; Screening for prostate cancer; Screening for colon cancer; Screening for HIV (human immunodeficiency virus); Special screening examination for viral disease; Heartburn; Primary hypertension; BPH with obstruction/lower urinary tract symptoms; Anxiety; Depression, unspecified depression type; Tobacco use disorder Start: 11-06-2024 End: 11-06-2024 Patient encounter status Anjelica Munoz APRN.[employer] Work Phone: [facility] Start: 10-02-2024 End: 10-02-2024 Refill Celina Tesfaye MD Work Phone: [address] [place] [address] Comment on above: Refill Request Start: 07-10-2024 End: 07-11-2024 Refill Celina Tesfaye MD Work Phone: [facility] Comment on above: Refill Request Start: 03-21-2024 Refill Celina Tesfaye MD Work Phone: [facility] Comment on above: Refill Request Start: 02-16-2024 ambulatory Zia Osman Facilit y:[facility] Start: 01-24-2024 Refill Celina Tesfaye MD Work Phone: [facility] Comment on above: Refill Request Start: 10-25-2023 Refill Celina Tesfaye MD Work Phone: [facility] Comment on above: Refill Request Start: 09-28-2023 Refill Celina Tesfaye MD Work Phone: [facility] Comment on above: Refill Request Medication Request Start: 09-16-2023 Telephone encounter Anjelica aranda APRN.[employer] Work Phone: [facility] Comment on above: Results Start: 09-13-2023 Telephone encounter Anjelica aranda APRN.[employer] Work Phone: [facility] Comment on above: Patient Update (derm referral/) Start: 09-09-2023 End: 09-09-2023 Patient encounter procedure Anjelica Munoz APRN.[employer] Work Phone: [facility] Comment on above: Essential hypertensi on, benign (Primary Dx); Peripheral edema; Gastroesophageal reflux disease, unspecified whether esophagitis present; Anxiety; Depression, unspecified depression type; Hypomagnesemia; Hyponatremia; Eczema, unspecified type Start: 09-08-2023 Telephone encounter Montana Tesfaye MD Work Phone: [facility] Comment on above: Medication Request Start: 06-08-2023 Telephone encounter Anjelica aranda APRN.[employer] Work Phone: [facility] Comment on above: Results Start: 06-07-2023 End: 06-07-2023 Patient encounter procedure Anjelica Munoz APRN.[employer] Work Phone: [facility] Comment on above: Gastroesophageal ref lux disease, unspecified whether esophagitis present (Primary Dx); Essential hypertension, benign; Depression, unspecified depression type; Anxiety; Hyponatremia; Bilateral lower extremity edema; Itching with irritation Start: 05-31-2023 Refill Anjelica abbott APRN.[employer] ATT[employer]NEY Work Phone: [facility] Comment on above: Refill Request Start: 03-23-2023 Telephone encounter Montana Tesfaye MD Work Phone: [facility] Comment on above: Insurance Authorizat ion (Calcium Citrate ) Start: 03-19-2023 Refill Celina Tesfaye MD Work Phone: [facility] Comment on above: Refill Request; Refi ll Request Start: 03-06-2023 Telephone encounter Montana Tesfaye MD Work Phone: [facility] Comment on above: Results Start: 03-03-2023 End: 03-03-2023 Patient encounter procedure Celina Tesfaye MD Work Phone: [facility] Comment on above: Bilateral lower extr emity edema (Primary Dx); Itching; Multiple excoriations; Essential hypertension, benign; Alcohol abuse; Tobacco use disorder; Gastroesophageal reflux disease, unspecified whether esophagitis present; Gastrointestinal hemorrhage, unspecified gastrointestinal hemorrhage type; Gout, unspecified cause, unspecified chronicity, unspecified site; Anxiety; Depression, unspecified depression type; Hypocalcemia Start: 03-03-2023 Telephone encounter Montana Tesfaye MD Work Phone: [facility] Comment on above: Request Outside [facility] Records Start: 02-01-2023 Telephone encounter Anjelica aranda APRN.[employer] Work Phone: [facility] Comment on above: swelling above ankle s Start: 01-12-2023 ambulatory Zia Osman Facilit y:[facility] Start: 01-07-2023 Telephone encounter Anjelica aranda APRN.[employer] Work Phone: [facility] Comment on above: Results Start: 01-05-2023 End: 01-05-2023 Patient encounter procedure Anjelica Munoz APRN.[employer] Work Phone: [facility] Comment on above: Heartburn (Primary D x); Peripheral edema; Primary hypertension Start: 12-26-2022 ambulatory Lazaro MARTINEZ Facilit y:[facility] Start: 12-07-2022 End: 12-07-2022 ambulatory Zia Osman Facility:[facility] Start: 11-24-2022 End: 11-24-[address] Zia Osman Work Phone: [facility] Work Phone: Start: 11-24-2022 End: 11-24-[address] Zia Osman Work Phone: [facility] Start: 11-23-2022 End: 11-23-[address] Zia Osman Work Phone: [facility]-Laboratory, Specimen Start: 11-23-2022 End: 11-23-[address] Zia Osman Work Phone: [facility] Work Phone: Start: 11-19-2022 Non-patient / Non-visit Dr. Leah Osman Work Phone: [facility] Start: 11-18-2022 Non-patient / Non-visit Dr. Leah Osman Work Phone: [facility] Start: 11-17-2022 Non-patient / Non-visit Dr. Leah Osman Work Phone: [facility] Start: 11-17-2022 End: 11-19-2022 Evaluation and management of inpatient Dr. Zia Osman Work Phone: [facility]-Progressive Care Unit Start: 11-17-2022 End: 11-17-[address] Zia Osman Work Phone: [facility] Work Phone: Start: 11-17-2022 End: 11-17-[address] Zia Osman Work Phone: [facility] Start: 11-13-2022 Non-patient / Non-visit Dr. Leah Osman Work Phone: [facility] Start: 11-13-2022 Non-patient / Non-visit Dr. Leah Osman Work Phone: [facility] Start: 11-12-2022 Non-patient / Non-visit Dr. Leah Osman Work Phone: [facility] Start: 11-12-2022 Non-patient / Non-visit Dr. Leah Osman Work Phone: [facility] Start: 11-11-2022 Non-patient / Non-visit Dr. Leah Osman Work Phone: [facility] Start: 11-11-2022 Non-patient / Non-visit Dr. Leah Osman Work Phone: [facility] Start: 11-11-2022 Non-patient / Non-visit Dr. Leah Osman Work Phone: [facility] Start: 11-10-2022 Non-patient / Non-visit Dr. Leah Osman Work Phone: [facility] Start: 11-10-2022 Non-patient / Non-visit Dr. Leah Osman Work Phone: [facility] Start: 11-10-2022 Non-patient / Non-visit Dr. Leah Osman Work Phone: [facility] Start: 11-09-2022 Non-patient / Non-visit Dr. Leah Osman Work Phone: [facility] Start: 11-09-2022 Non-patient / Non-visit Dr. Leah Osman Work Phone: [facility] Start: 11-09-2022 Non-patient / Non-visit Dr. Leah Osman Work Phone: [facility] Start: 11-09-2022 End: 11-13-2022 Evaluation and management of inpatient Dr. Zia Osman Work Phone: [facility]-Intensive Care Unit Start: 11-09-2022 End: 11-09-2022 Emergency department patient visit Dr. Zia Osman Work Phone: [facility]-Emergency Department Start: 09-14-2022 End: 09-14-[address] Zia Osman Work Phone: [facility] Start: 08-25-2022 End: 08-25-[address] Zia Osman Work Phone: [facility] Work Phone: Start: 08-25-2022 End: 08-25-[address] Zia Osman Work Phone: [facility] Start: 07-16-2022 End: 07-16-[address] Zia Osman Work Phone: [facility] Start: 07-07-2022 End: 07-07-[address] [facility] Work Phone: Start: 07-07-2022 End: 07-07-2022 Patient encounter procedure [facility] Start: 04-22-2022 End: 04-22-[address] [facility] Work Phone: Start: 04-22-2022 End: 04-22-2022 Patient encounter procedure [facility] Start: 07-19-2017 End: 07-20-2017 Ambulatory DAVID SALDIVAR Facility:[facility] Procedures Date Procedure Procedure Detail Performing Clinician Start: 03-03-2023 Lipid 1996 panel - Serum or Plasma Qamar Munoz APRN.[employer] Work Phone: Start: 11-10-[address] Zia gonzalez Work Phone: Start: 11-09-[address] Zia Osman Work Phone: Start: 11-09-2022 Plain X-ray abdomen Dr. Zia Osman Work Phone: Start: 11-09-2022 Plain chest X-ray Dr. Zia Osman Work Phone: Start: 11-09-2022 CT of head without contrast Dr. Zia lambert Work Phone: Start: 07-07-2022 Plain X-ray of shoulder Bacteria identified in Blood by Culture Dr. Zia Osman Work Phone: Clostridium difficile detection Dr. Zia Osman Work Phone: Lactoferrin measurement Dr. Zia Osman Work Phone: SARS-CoV-2 & FLU Antigen (Rapid) Dr. Zia Osman Work Phone: Urine culture Dr. Zia olguin Work Phone: Plan of Treatment Date Care Activity Detail Author Start: 11-06-2029 Prostate specific antigen measurement Prostate Cancer Screening Discussion [facility] Start: 03-03-2028 Lipid 1996 panel - Serum or Plasma Lipid Screening [facility] Start: 03-03-2028 Lipid panel Lipid Screening [facility] Start: 03-03-2028 LIPID SCREEN LIPID SCREEN [facility] Start: 11-07-2027 Diabetes Screening Diabetes Screening [facility] Start: 09-15-2026 Diabetes Screening Diabetes Screening [facility] Start: 06-07-2026 Diabetes Screening Diabetes Screening [facility] Start: 03-03-2026 DIABETES SCREEN DIABETES SCREEN [facility] Start: 03-03-2026 Diabetes Screening Diabetes Screening [facility] Start: 12-22-2025 DIABETES SCREEN DIABETES SCREEN [facility] Start: 11-06-2025 Annual PCP Team Chronic Disease Visit Annual PCP Team Chronic Disease Visit [facility] Start: 11-06-2025 BP Controlled (<130/80) BP Controlled (<130/80) [facility] Start: 11-06-2025 Covid-19 Vaccine ( season) Covid-19 Vaccine ( season) [facility] Comment on above: Postponed from 04/09/2024 (Declined at t his time) Start: 11-06-2025 Hepatitis B Vaccine (1 of 3 - 19+ 3-dose series) Hepatitis B Vaccine (1 of 3 - 19+ 3-dose series) [facility] Comment on above: Postponed from 1988 (Declined at t his time) Start: 11-06-2025 Pneumococcal Vaccine: 50+ (1 of 2 - PCV) Pneumococcal Vaccine: 50+ (1 of 2 - PCV) [facility] Comment on above: Postponed from 1988 (Declined at t his time) Start: 11-06-2025 Shingrix Vaccine (1 of 2) Shingrix Vaccine (1 of 2) [facility] Comment on above: Postponed from 10/09/2019 (Declined at t his time) Start: 11-06-2025 Urine microalbumin profile DTaP,Tdap,Td Vaccine (1 - Tdap) [facility] Comment on above: Postponed from 1988 (Declined at t his time) Start: 04-09-2025 Influenza vaccination Influenza Vaccine (#1) [facility] Start: 02-05-2025 Influenza vaccination Influenza Vaccine (#1) [facility] Comment on above: Postponed from 04/09/2024 (Declined at t his time) Start: 12-05-2024 End: 03-06-2025 Magnesium [Mass/volume] in Serum or Plasma MAGNESIUM Lab Routine Hypomagnesemia Expected: 12/05/2024, Expires: 03/06/2025 [facility] Work Phone: Comment on above: Expected: 12/05/2024, Expires: Start: 11-06-2024 End: 02-05-2025 Cobalamin (Vitamin B12) [Mass/volume] in Serum or Plasma [facility] Comment on above: Expected: 11/06/2024, Expires: Start: 11-06-2024 End: 02-05-2025 COLOGUARD COLOGUARD Lab Routine Screening for colon cancer Expected: 11/06/2024, Expires: 02/05/2025 [facility] Comment on above: Expected: 11/06/2024, Expires: Start: 11-06-2024 End: 02-05-2025 Comprehensive metabolic 2000 panel - Serum or Plasma [facility] Work Phone: Comment on above: Expected: 11/06/2024, Expires: Start: 11-06-2024 End: 02-05-2025 Hemoglobin A1c in Blood [facility] Comment on above: Expected: 11/06/2024, Expires: Start: 11-06-2024 End: 02-05-2025 Hepatitis C virus Ab [Presence] in Serum [facility] Comment on above: Expected: 11/06/2024, Expires: Start: 11-06-2024 End: 02-05-2025 HIV 1+2 Ab [Presence] in Serum or Plasma by Immunoassay [facility] Comment on above: Expected: 11/06/2024, Expires: Start: 11-06-2024 End: 02-05-2025 Magnesium [Mass/volume] in Serum or Plasma [facility] Comment on above: Expected: 11/06/2024, Expires: Start: 11-06-2024 End: 02-05-2025 PSA/PROSTATE SPECIFIC ANTIGEN SCREENING [facility] Comment on above: Expected: 11/06/2024, Expires: Start: 11-06-2024 End: 02-05-2025 Urate [Mass/volume] in Serum or Plasma [facility] Comment on above: Expected: 11/06/2024, Expires: Start: 10-25-2024 End: 10-25-2024 Patient encounter procedure 10/25/2024 5:20 PM EDT Office Visit Family [facility] [address] [place] [address] [employer] APRN.[employer] [address] [place] [address] physical [facility] Comment on above: physical Start: 2024 Prostate specific antigen measurement Prostate Cancer Screening Discussion [facility] Start: 09-09-2024 Annual PCP Team Chronic Disease Visit Annual PCP Team Chronic Disease Visit [facility] Start: 09-09-2024 BP Controlled (<130/80) BP Controlled (<130/80) [facility] Start: 06-07-2024 Annual PCP Team Chronic Disease Visit Annual PCP Team Chronic Disease Visit [facility] Start: 06-07-2024 BP Controlled (<130/80) BP Controlled (<130/80) [facility] Start: 06-07-2024 Covid-19 Vaccine ( season) Covid-19 Vaccine () [facility] Comment on above: Postponed from 04/09/2023 (Declined at t his time) Start: 06-07-2024 Urine microalbumin profile DTaP,Tdap,Td Vaccine (1 - Tdap) [facility] Comment on above: Postponed from 1988 (Declined at t his time) Start: 04-09-2024 Covid-19 Vaccine ( season) Covid-19 Vaccine () [facility] Start: 04-09-2024 Influenza vaccination [facility] Start: 03-23-2024 End: 03-23-2024 Patient encounter procedure 03/23/2024 7:00 PM EDT Office Visit Family [facility] [address] [place] [address] Anjelica Munoz APRN.[employer] [facility] [address] [place], [place] [id number] wanting help to file for disability [facility] Comment on above: wanting help to file for disability Start: 03-03-2024 ANNUAL PCP TEAM CHRONIC DISEASE VISIT ANNUAL PCP TEAM CHRONIC DISEASE VISIT [facility] Start: 03-03-2024 BP CONTROLLED (<130/80) BP CONTROLLED (<130/80) [facility] Start: 02-06-2024 Influenza vaccination Influ[facility] Vaccine (#[facility] Comment on above: Postponed from 04/09/2023 (Declined at t his time) Start: 01-06-2024 ANNUAL PCP TEAM CHRONIC DISEASE VISIT ANNUAL PCP TEAM CHRONIC DISEASE VISIT [facility] Start: 01-06-2024 BP CONTROLLED (<130/80) BP CONTROLLED (<130/80) [facility] Start: 09-09-2023 End: 12-09-2023 Comprehensive metabolic 2000 panel - Serum or Plasma COMP METABOLIC PANEL Lab Routine Hyponatremia Expected: 09/09/2023, Expires: 12/09/2023 [facility] Work Phone: Comment on above: Expected: 09/09/2023, Expires: 4 Start: 09-09-2023 End: 12-09-2023 Magnesium [Mass/volume] in Serum or Plasma MAGNESIUM BLD Lab Routine Hypomagnesemia Expected: 09/09/2023, Expires: 12/09/2023 [facility] Work Phone: Comment on above: Expected: 09/09/2023, Expires: 4 Start: 04-09-2023 Covid-19 Vaccine () Covid-19 Vaccine () [facility] Start: 04-09-2023 Influenza vaccination [facility] Start: 11-24-[address] [facility] Start: 11-23-2022 Elastase, pancreatic (el-1), fecal; quantitative [facility] Start: 11-23-2022 Protein measurement [facility] Start: 11-23-[address] [facility] Start: 11-22-[address] [facility] Start: 11-21-[address] [facility] Start: 11-20-[address] [facility] Start: 11-19-2022 Patient discharge [facility] Start: 11-19-2022 Elastase, pancreatic (el-1), fecal; quantitative [facility] Start: 11-19-2022 Protein measurement [facility] Start: 11-19-[address] [facility] Start: 11-18-2022 End: 11-18-2022 Blood chemistry [facility] Start: 11-18-[address] [facility] Start: 11-18-[address] [facility] Start: 11-17-2022 Application of intermittent pneumatic compression device [facility] Start: 11-17-2022 End: 11-17-2022 Vitamin D, 1,25-dihydroxy measurement [facility] Start: 11-17-[address] [facility] Start: 11-17-2022 Following clinical pathway protocol [facility] Start: 11-17-2022 Assessment of risk of venous thromboembolism [facility] Start: 11-17-2022 Calcium measurement, urine [facility] Start: 11-17-2022 Creatinine [Mass/volume] in Urine collected for unspecified duration [facility] Start: 11-17-2022 Electrolytes measurement, urine [facility] Start: 11-17-2022 Incentive spirometry [facility] Start: 11-17-2022 Insertion of catheter into peripheral vein [facility] Start: 11-17-2022 Measuring intake and output [facility] Start: 11-17-[address] [facility] Start: 11-17-2022 Providing care according to standard [facility] Start: 11-17-2022 Provision of activity privileges [facility] Start: 11-17-2022 Urea nitrogen measurement, urine [facility] Start: 11-17-2022 End: 11-17-2022 Blood chemistry [facility] Start: 11-17-2022 Verification routine [facility] Start: 11-17-2022 Admission procedure [facility] Start: 11-17-2022 Acute hepatitis panel ACUTE HEPATITIS PANEL [facility] Start: 11-17-2022 Assay of amylase ASSAY OF AMYLASE [facility] Start: 11-17-2022 Assay of blood/uric acid ASSAY OF BLOOD/URIC ACID [facility] Start: 11-17-2022 Assay of gammaglobulin iga igd igg igm each ASSAY IGA/IGD/IGG/IGM EACH [facility] Start: 11-17-2022 Assay of gammaglobulin ige ASSAY OF IGE [facility] Start: 11-17-2022 Assay of lipase ASSAY OF LIPASE [facility] Start: 11-17-2022 Blood count complete auto&auto difrntl wbc COMPLETE CBC W/AUTO DIFF WBC [facility] Start: 11-17-2022 C-reactive protein C-REACTIVE PROTEIN [facility] Start: 11-17-2022 Collection venous blood venipuncture ROUTINE VENIPUNCTURE [facility] Start: 11-17-2022 Comprehensive metabolic panel COMPREHEN METABOLIC PANEL [facility] Start: 11-17-2022 Dna antibody [place]/double stranded DNA ANTIBODY HYDABURG [facility] Start: 11-17-2022 Extractable nuclear antigen antibody any method NUCLEAR ANTIGEN ANTIBODY [facility] Start: 11-17-2022 Fluorescent nonnfct agt antb titer ea antibody FLUORESCENT ANTIBODY TITER [facility] Start: 11-17-2022 Immunofixj electrophoresis serum IMMUNOFIX E-PHORESIS SERUM [facility] Start: 11-17-2022 Lactate dehydrogenase ldh LACTATE (LD) (LDH) ENZYME [facility] Start: 11-17-2022 Protein electrophoretic fractj&quantj serum PROTEIN E-PHORESIS SERUM [facility] [facility] Start: 11-17-2022 Sedimentation rate rbc automated RBC SED RATE AUTOMATED [facility] Start: 11-17-2022 Tb cell mediated antign respnse gamma interferon TB TEST CELL IMMUN MEASURE [facility] Start: 11-17-2022 Acute hepatitis 2000 panel - Serum [facility] Start: 11-17-2022 Immunoglobulin measurement [facility] Start: 11-17-2022 In-vitro immunologic test [facility] Start: 11-17-[address] [facility] Start: 11-17-2022 Serum immunofixation [facility] Start: 11-17-2022 End: 11-17-[address] [facility] Start: 11-17-2022 Patient referral to dietitian [facility] Start: 11-13-2022 Patient discharge [facility] Start: 11-13-[address] [facility] Start: 11-13-2022 Serum immunofixation [facility] Start: 11-13-[address] [facility] Start: 11-13-2022 Elastase, pancreatic (el-1), fecal; quantitative [facility] Start: 11-13-2022 Protein measurement [facility] Start: 11-12-2022 Enteric precautions [facility] Start: 11-12-[address] [facility] Start: 11-11-2022 Care planning and problem solving actions [facility] Start: 11-11-[address] [facility] Start: 11-10-2022 Methicillin resistant Staphylococcus aureus screening test [facility] Start: 11-09-2022 Catheterization of vein [facility] Start: 11-09-2022 Referral to gastroenterology service [facility] Start: 11-09-2022 Referral to occupational therapist [facility] Start: 11-09-2022 Referral to service [facility] Start: 11-09-2022 Seizure precautions [facility] Start: 11-09-[address] [facility] Start: 11-09-2022 Application of intermittent pneumatic compression device [facility] Start: 11-09-2022 Following clinical pathway protocol [facility] Start: 11-09-2022 Assessment of risk of venous thromboembolism [facility] Start: 11-09-2022 Continuous pulse oximetry [facility] Start: 11-09-2022 Elevation of head of bed [facility] Start: 11-09-2022 Insertion of catheter into peripheral vein [facility] Start: 11-09-2022 Measuring intake and output [facility] Start: 11-09-2022 Oxygen therapy [facility] Start: 11-09-2022 Providing care according to standard [facility] Start: 11-09-2022 Referral to space physicist [facility] Start: 11-09-2022 Vital signs measurements [facility] Start: 11-09-2022 Admission procedure [facility] Start: 11-09-2022 End: 11-09-[address] [facility] Start: 11-09-2022 End: 11-09-2022 Blood culture [facility] Start: 11-09-2022 Patient referral to dietitian [facility] Start: 04-22-2022 Thiamine measurement [facility] Work Phone: Start: 04-22-2022 Vitamin B6 measurement [facility] Work Phone: Start: 11-02-2021 LIPID SCREEN LIPID SCREEN [facility] Start: 10-10-2021 COVID-19 VACCINE (4 - Booster for Moderna series) COVID-19 VACCINE (4 - Booster for Moderna series) [facility] Start: 10-10-2021 COVID-19 VACCINE (4 - Moderna series) COVID-19 VACCINE (4 - Moderna series) [facility] Start: 10-09-2019 Influenza vaccination LUNG CANCER SCREENING [facility] Start: 10-09-2019 Screening for malignant neoplasm of lung Lung Cancer Screening [facility] Start: 10-09-2019 SHINGRIX VACCINE (1 of 2) SHINGRIX VACCINE (1 of 2) [facility] Start: 2014 COLOGUARD (FIT-DNA) COLOGUARD (FIT-DNA) [facility] Start: 2014 Colonoscopy COLONOSCOPY [facility] Start: 2014 COLORECTAL CANCER SCREENING COLORECTAL CANCER SCREENING [facility] Start: [address] COLONOGRAPHY [facility] Start: 2014 FECAL OCCULT BLOOD FECAL OCCULT BLOOD [facility] Start: 2014 Screening for malignant neoplasm of colon [facility] Start: 2014 SIGMOIDOSCOPY SIGMOIDOSCOPY [facility] Start: 1988 Hepatitis B Vaccine (1 of 3 - 19+ 3-dose series) Hepatitis B Vaccine (1 of 3 - 19+ 3-dose series) [facility] Start: 1988 Pneumococcal Vaccine: 50+ (1 of 2 - PCV) Pneumococcal Vaccine: 50+ (1 of 2 - PCV) [facility] Start: 1988 Urine microalbumin profile [facility] Start: 10-09-1987 BP Controlled (<130/80) BP Controlled (<130/80) [facility] Start: 10-09-1987 HEPATITIS C SCREENING HEPATITIS C SCREENING [facility] Start: 10-09-1987 Hepatitis C screening Hepatitis C Screening [facility] Start: 10-09-1987 HIV SCREENING HIV SCREENING [facility] Start: 10-09-1987 HIV screening HIV Screening [facility] Start: 10-09-1975 PNEUMOCOCCAL (1 - PCV) PNEUMOCOCCAL (1 - PCV) [facility] Start: 10-09-1975 Pneumococcal vaccination Pneumococcal Vaccine (1 - PCV) [facility] Start: 1969 HEPATITIS B (1 of 3 - 3-dose series) HEPATITIS B (1 of 3 - 3-dose series) [facility] Start: 1969 Hepatitis B Vaccine (1 of 3 - 3-dose series) Hepatitis B Vaccine (1 of 3 - 3-dose series) [facility] Alanine aminotransfe rase [Enzymatic activity/volume] in Serum or Plasma [facility] Alanine aminotransfe rase [Enzymatic activity/volume] in Serum or Plasma [facility] Alanine aminotransfe rase [Enzymatic activity/volume] in Serum or Plasma [facility] Alanine aminotransfe rase [Enzymatic activity/volume] in Serum or Plasma [facility] Alanine aminotransfe rase [Enzymatic activity/volume] in Serum or Plasma [facility] Alanine aminotransfe rase [Enzymatic activity/volume] in Serum or Plasma [facility] Alanine aminotransfe rase [Enzymatic activity/volume] in Serum or Plasma [facility] Albumin [Mass/volume ] in Serum or Plasma [facility] Albumin [Mass/volume ] in Serum or Plasma [facility] Albumin [Mass/volume ] in Serum or Plasma [facility] Albumin [Mass/volume ] in Serum or Plasma [facility] Albumin [Mass/volume ] in Serum or Plasma [facility] Albumin [Mass/volume ] in Serum or Plasma [facility] Albumin [Mass/volume ] in Serum or Plasma [facility] Albumin [Moles/volum e] in Serum or Plasma [facility] Albumin [Moles/volum e] in Serum or Plasma [facility] Albumin/Globulin ratio [facility] Albumin/Globulin ratio [facility] Alkaline phosphatase [Enzymatic activity/volume] in Serum or Plasma [facility] Alkaline phosphatase [Enzymatic activity/volume] in Serum or Plasma [facility] Alkaline phosphatase [Enzymatic activity/volume] in Serum or Plasma [facility] Alkaline phosphatase [Enzymatic activity/volume] in Serum or Plasma [facility] Alkaline phosphatase [Enzymatic activity/volume] in Serum or Plasma [facility] Alkaline phosphatase [Enzymatic activity/volume] in Serum or Plasma [facility] Alkaline phosphatase [Enzymatic activity/volume] in Serum or Plasma [facility] Anion gap measurement [facility] Anion gap measurement [facility] Anion gap measurement [facility] Anion gap measurement [facility] Anion gap measurement [facility] Anion gap measurement [facility] Anion gap measurement [facility] Anion gap measurement [facility] Antibody to lupus La protein measurement [facility] Antibody to lupus La protein measurement [facility] Antibody to SS-A measurement [facility] Antibody to SS-A measurement [facility] Aspartate aminotransferase [Enzymatic activity/volume] in Serum or Plasma [facility] Aspartate aminotransferase [Enzymatic activity/volume] in Serum or Plasma [facility] Aspartate aminotransferase [Enzymatic activity/volume] in Serum or Plasma [facility] Aspartate aminotransferase [Enzymatic activity/volume] in Serum or Plasma [facility] Aspartate aminotransferase [Enzymatic activity/volume] in Serum or Plasma [facility] Aspartate aminotransferase [Enzymatic activity/volume] in Serum or Plasma [facility] Aspartate aminotransferase [Enzymatic activity/volume] in Serum or Plasma [facility] Bacteria identified in Blood by Culture Blood Culture [facility] Bacteria identified in Urine by Culture Urine Culture [facility] Bilirubin, total measurement [facility] Bilirubin, total measurement [facility] Bilirubin, total measurement [facility] Bilirubin, total measurement [facility] Bilirubin, total measurement [facility] Bilirubin, total measurement [facility] Bilirubin, total measurement [facility] BUN/Creatinine ratio [facility] BUN/Creatinine ratio [facility] BUN/Creatinine ratio [facility] BUN/Creatinine ratio [facility] BUN/Creatinine ratio [facility] BUN/Creatinine ratio [facility] BUN/Creatinine ratio [facility] BUN/Creatinine ratio [facility] Calcium [Mass/volume ] in Serum or Plasma [facility] Calcium [Mass/volume ] in Serum or Plasma [facility] Calcium [Mass/volume ] in Serum or Plasma [facility] Calcium [Mass/volume ] in Serum or Plasma [facility] Calcium [Mass/volume ] in Serum or Plasma [facility] Calcium [Mass/volume ] in Serum or Plasma [facility] Calcium [Mass/volume ] in Serum or Plasma [facility] Calcium [Mass/volume ] in Serum or Plasma [facility] Calcium.ionized [Mass/volume] in Serum or Plasma [facility] Carbon dioxide, tota l [Moles/volume] in Serum or Plasma [facility] Carbon dioxide, tota l [Moles/volume] in Serum or Plasma [facility] Carbon dioxide, tota l [Moles/volume] in Serum or Plasma [facility] Carbon dioxide, tota l [Moles/volume] in Serum or Plasma [facility] Carbon dioxide, tota l [Moles/volume] in Serum or Plasma [facility] Carbon dioxide, tota l [Moles/volume] in Serum or Plasma [facility] Carbon dioxide, tota l [Moles/volume] in Serum or Plasma [facility] Carbon dioxide, tota l [Moles/volume] in Serum or Plasma [facility] CBC W Auto Different ial panel - Blood COMPLETE BLOOD COUNT AND DIFFERENTIAL Lab Routine Gastroesophageal reflux disease, unspecified whether esophagitis present 11/06/2024 4:39 PM EDT [facility] Centromere protein B Ab [Units/volume] in Serum [facility] Centromere protein B Ab [Units/volume] in Serum [facility] Chloride [Moles/volu me] in Serum or Plasma [facility] Chloride [Moles/volu me] in Serum or Plasma [facility] Chloride [Moles/volu me] in Serum or Plasma [facility] Chloride [Moles/volu me] in Serum or Plasma [facility] Chloride [Moles/volu me] in Serum or Plasma [facility] Chloride [Moles/volu me] in Serum or Plasma [facility] Chloride [Moles/volu me] in Serum or Plasma [facility] Chloride [Moles/volu me] in Serum or Plasma [facility] Chromatin Ab [Units/volume] in Serum or Plasma [facility] Chromatin Ab [Units/volume] in Serum or Plasma [facility] Creatinine [Moles/vo lume] in Serum or Plasma [facility] Creatinine [Moles/vo lume] in Serum or Plasma [facility] Creatinine [Moles/vo lume] in Serum or Plasma [facility] Creatinine [Moles/vo lume] in Serum or Plasma [facility] Creatinine [Moles/vo lume] in Serum or Plasma [facility] Creatinine [Moles/vo lume] in Serum or Plasma [facility] Creatinine [Moles/vo lume] in Serum or Plasma [facility] Creatinine [Moles/vo lume] in Serum or Plasma [facility] DNA double strand Ab [Units/volume] in Serum [facility] DNA double strand Ab [Units/volume] in Serum [facility] Elastase, pancreatic (el-1), fecal; quantitative [facility] Electrophoresis: [id number] [facility] Electrophoresis: [id number] [facility] Electrophoresis: junior ma globulin [facility] Electrophoresis: junior ma globulin [facility] Fat [Mass/mass] in Stool [facility] Fat.neutral [Presenc e] in Stool [facility] Globulin measurement [facility] Globulin measurement [facility] Glucose [Mass/volume ] in Serum or Plasma [facility] Glucose [Mass/volume ] in Serum or Plasma [facility] Glucose [Mass/volume ] in Serum or Plasma [facility] Glucose [Mass/volume ] in Serum or Plasma [facility] Glucose [Mass/volume ] in Serum or Plasma [facility] Glucose [Mass/volume ] in Serum or Plasma [facility] Glucose [Mass/volume ] in Serum or Plasma [facility] Glucose [Mass/volume ] in Serum or Plasma [facility] Hematocrit [Volume Fraction] of Blood [facility] Hematocrit [Volume Fraction] of Blood [facility] Hematocrit [Volume Fraction] of Blood [facility] Hematocrit [Volume Fraction] of Blood [facility] Hematocrit [Volume Fraction] of Blood [facility] Hematocrit [Volume Fraction] of Blood [facility] Hematocrit [Volume Fraction] of Blood [facility] Hemoglobin [Mass/vol ume] in Blood [facility] Hemoglobin [Mass/vol ume] in Blood [facility] Hemoglobin [Mass/vol ume] in Blood [facility] Hemoglobin [Mass/vol ume] in Blood [facility] Hemoglobin [Mass/vol ume] in Blood [facility] Hemoglobin [Mass/vol ume] in Blood [facility] Hemoglobin [Mass/vol ume] in Blood [facility] Hepatitis A virus Ig M Ab [Presence] in Serum [facility] Hepatitis A virus Ig M Ab [Presence] in Serum [facility] Hepatitis B core ant ibody measurement, IgM type [facility] Hepatitis B core ant ibody measurement, IgM type [facility] Hepatitis B surface antigen measurement [facility] Hepatitis B surface antigen measurement [facility] Hepatitis C antibody measurement [facility] Hepatitis C antibody measurement [facility] IgA [Mass/volume] in Serum or Plasma [facility] IgA [Mass/volume] in Serum or Plasma [facility] IgE [Units/volume] i n Serum or Plasma [facility] IgG [Mass/volume] in Serum or Plasma [facility] IgG [Mass/volume] in Serum or Plasma [facility] IgM [Mass/volume] in Serum or Plasma [facility] IgM [Mass/volume] in Serum or Plasma [facility] In-vitro immunologic test [facility] Leah-1 extractable nuc lear Ab [Units/volume] in Serum [facility] Leah-1 extractable nuc lear Ab [Units/volume] in Serum [facility] Lactoferrin [Presenc e] in Stool by Immunoassay [facility] Leukocytes [#/volume ] in Blood [facility] Leukocytes [#/volume ] in Blood [facility] Leukocytes [#/volume ] in Blood [facility] Leukocytes [#/volume ] in Blood [facility] Leukocytes [#/volume ] in Blood [facility] Leukocytes [#/volume ] in Blood [facility] Leukocytes [#/volume ] in Blood [facility] Magnesium [Mass/volu me] in Serum or Plasma [facility] Magnesium [Mass/volu me] in Serum or Plasma [facility] Mean corpuscular hemoglobin concentration determination [facility] Mean corpuscular hemoglobin concentration determination [facility] Mean corpuscular hemoglobin concentration determination [facility] Mean corpuscular hemoglobin concentration determination [facility] Mean corpuscular hemoglobin concentration determination [facility] Mean corpuscular hemoglobin concentration determination [facility] Mean corpuscular hemoglobin concentration determination [facility] Mean corpuscular hemoglobin determination [facility] Mean corpuscular hemoglobin determination [facility] Mean corpuscular hemoglobin determination [facility] Mean corpuscular hemoglobin determination [facility] Mean corpuscular hemoglobin determination [facility] Mean corpuscular hemoglobin determination [facility] Mean corpuscular hemoglobin determination [facility] Measurement of renal function [facility] Measurement of renal function [facility] Measurement of renal function [facility] Measurement of renal function [facility] Measurement of renal function [facility] Measurement of renal function [facility] Measurement of renal function [facility] Measurement of renal function [facility] Mycobacterium tuberculosis tuberculin stimulated gamma interferon [Presence] in Blood [facility] Mycobacterium tuberculosis tuberculin stimulated gamma interferon [Presence] in Blood [facility] Neutrophil count [facility] Neutrophil count [facility] Neutrophil count [facility] Neutrophil count [facility] Neutrophil count [facility] Neutrophil count [facility] Neutrophil count [facility] Neutrophil cytoplasm ic Ab.classic [Units/volume] in Serum [facility] Neutrophil cytoplasm ic Ab.classic [Units/volume] in Serum [facility] Neutrophil percent differential count [facility] Neutrophil percent differential count [facility] Neutrophil percent differential count [facility] Neutrophil percent differential count [facility] Neutrophil percent differential count [facility] Neutrophil percent differential count [facility] Neutrophil percent differential count [facility] P-ANCA measurement [facility] P-ANCA measurement [facility] Patient Education [facility] Work Phone: Patient referral [facility] Work Phone: Platelets [#/volume] in Blood [facility] Platelets [#/volume] in Blood [facility] Platelets [#/volume] in Blood [facility] Platelets [#/volume] in Blood [facility] Platelets [#/volume] in Blood [facility] Platelets [#/volume] in Blood [facility] Platelets [#/volume] in Blood [facility] Potassium [Moles/vol ume] in Serum or Plasma [facility] Potassium [Moles/vol ume] in Serum or Plasma [facility] Potassium [Moles/vol ume] in Serum or Plasma [facility] Potassium [Moles/vol ume] in Serum or Plasma [facility] Potassium [Moles/vol ume] in Serum or Plasma [facility] Potassium [Moles/vol ume] in Serum or Plasma [facility] Potassium [Moles/vol ume] in Serum or Plasma [facility] Potassium [Moles/vol ume] in Serum or Plasma [facility] Protein electrophore sis panel - Serum or Plasma [facility] Protein electrophore sis panel - Serum or Plasma [facility] Protein measurement [facility] End: 06-07-2024 PVR [facility]K [facility] Vascular Lab Routine Bilateral lower extremity edema 1 Occurrences starting 06/07/2023 until 06/07/2024 [facility] Work Phone: Comment on above: 1 Occurrences starting 06/07/2023 until 06/07/2024 Red blood cell count [facility] Red blood cell count [facility] Red blood cell count [facility] Red blood cell count [facility] Red blood cell count [facility] Red blood cell count [facility] Red blood cell count [facility] Red cell distributio n width determination [facility] Red cell distributio n width determination [facility] Red cell distributio n width determination [facility] Red cell distributio n width determination [facility] Red cell distributio n width determination [facility] Red cell distributio n width determination [facility] Red cell distributio n width determination [facility] SCL-70 extractable nuclear Ab [Units/volume] in Serum by Immunoassay [facility] SCL-70 extractable nuclear Ab [Units/volume] in Serum by Immunoassay [facility] Serum protein electrophoresis [facility] [facility] Serum protein electrophoresis [facility] [place] extractable nu clear Ab [Presence] in Serum [facility] extractable nu clear Ab [Presence] in Serum [facility] Sodium [Moles/volume ] in Serum or Plasma [facility] Sodium [Moles/volume ] in Serum or Plasma [facility] Sodium [Moles/volume ] in Serum or Plasma [facility] Sodium [Moles/volume ] in Serum or Plasma [facility] Sodium [Moles/volume ] in Serum or Plasma [facility] Sodium [Moles/volume ] in Serum or Plasma [facility] Sodium [Moles/volume ] in Serum or Plasma [facility] Sodium [Moles/volume ] in Serum or Plasma [facility] Thiamine measurement [facility] Work Phone: Total protein measurement [facility] Total protein measurement [facility] Total protein measurement [facility] Total protein measurement [facility] Total protein measurement [facility] Total protein measurement [facility] Total protein measurement [facility] Urea nitrogen [Mass/volume] in Serum or Plasma [facility] Urea nitrogen [Mass/volume] in Serum or Plasma [facility] Urea nitrogen [Mass/volume] in Serum or Plasma [facility] Urea nitrogen [Mass/volume] in Serum or Plasma [facility] Urea nitrogen [Mass/volume] in Serum or Plasma [facility] Urea nitrogen [Mass/volume] in Serum or Plasma [facility] Urea nitrogen [Mass/volume] in Serum or Plasma [facility] Urea nitrogen [Mass/volume] in Serum or Plasma [facility] End: 06-07-2024 US LEG ARTERIAL PERIPH LEONOR VAS LAB US LEG ARTERIAL PERIPH LEONOR VAS LAB Vascular Lab Routine Bilateral lower extremity edema 1 Occurrences starting 06/07/2023 until 06/07/2024 [facility] Work Phone: Comment on above: 1 Occurrences starting 06/07/2023 until 06/07/2024 End: 04-01-2024 US VENOUS REFLUX BILATERAL US VENOUS REFLUX BILATERAL Radiology Routine Bilateral lower extremity edema 1 Occurrences starting 03/03/2023 until 04/01/2024 [facility] Work Phone: Comment on above: 1 Occurrences starting 03/03/2023 until 04/01/2024 Vitamin B6 measurement [facility] Work Phone: [facility] Immunizations Immunization Date Immunization Notes Care Provider Carter melton 06-07-2017 influenza virus vacc ine, unspecified formulation Anjelica Munoz AIR BRAKE ADJUSTER.INSURANCE DEFENSE ATTORNEY Work Phone: [facility] Payers Date Payer Category Payer Self-pay [id number] 2017 Medicaid [id number] 2017 Medicaid [id number] 2017 Unknown [id number] Unknown [id number] Unknown [id number] Unknown [id number] [id number] Unknown [id number] Unknown [id number] [id number] Unknown [id number] [id number] Social History Date Type Detail Facility Start: 01-18-2019 End: 11-18-2022 Tobacco smoking status IDIS Unknown if ever smoked [facility] Start: 06-30-2017 Heavy [facility] Start: 06-30-2017 Marijuana [facility] Start: 06-30-2017 - [facility] Start: 06-30-2017 Non-smoker [facility] Start: 1970 Sex Assigned At Male [facility] Start: 11-02-2016 End: 03-03-2023 Tobacco smoking status NHIS Smokes tobacco daily [facility] History of tobacco use Cigarette Smoker C [facility] Start: 11-02-2016 End: 12-22-2022 Cigarettes smoked current (pack per day) - Reported 1 [facility] Start: 11-02-2016 End: 03-03-2023 Tobacco use and exposure Smokeless tobacco non-user [facility] Start: 09-27-2017 Alcohol intake Current drinke r of alcohol (finding) [facility] Start: 1970 Sex Assigned At Not on file C [facility] Start: 03-03-2023 Alcohol intake Ex-drinker (finding) [facility] Start: 12-22-2022 End: 03-03-2023 Tobacco use panel [facility] National Score (1-10 0), lower number is lower risk 72 [facility] Start: 03-03-2023 Alcohol Comment once per month [facility] Medical Equipment Procedure Code Equipment Code Equipment Origin al Text Equipment Identifier Dates EGD, with monitored anesthesia care CLIP,RESO 360 ULTRA 235_17 FDA Start: 11-10-2022 EGD, with monitored anesthesia care CLIP,RESO 360 ULTRA 235_17 FDA Start: 11-10-2022 EGD, with monitored anesthesia care CLIP,RESO 360 ULTRA 235_17 FDA Start: 11-10-2022 EGD, with monitored anesthesia care CLIP,RESO 360 ULTRA 235_17 FDA Start: 11-10-2022 EGD, with monitored anesthesia care CLIP,RESO 360 ULTRA 235_17 FDA Start: 11-10-2022 EGD, with monitored anesthesia care CLIP,RESO 360 ULTRA 235_17 FDA Start: 11-10-2022 EGD, with monitored anesthesia care CLIP,RESO 360 ULTRA 235_17 FDA Start: 11-10-2022 EGD, with monitored anesthesia care CLIP,RESO 360 ULTRA 235_17 FDA Start: 11-10-2022 EGD, with monitored anesthesia care CLIP,RESO 360 ULTRA 235_17 FDA Start: 11-10-2022 EGD, with monitored anesthesia care CLIP,RESO 360 ULTRA 235_17 FDA Start: 11-10-2022 EGD, with monitored anesthesia care CLIP,RESO 360 ULTRA 235_17 FDA Start: 11-10-2022 EGD, with monitored anesthesia care CLIP,RESO 360 ULTRA 235_17 FDA Start: 11-10-2022 EGD, with monitored anesthesia care CLIP,RESO 360 ULTRA 235_17 FDA Start: 11-10-2022 EGD, with monitored anesthesia care CLIP,RESO 360 ULTRA 235_17 FDA Start: 11-10-2022 EGD, with monitored anesthesia care CLIP,RESO 360 ULTRA 235_17 FDA Start: 11-10-2022 EGD, with monitored anesthesia care CLIP,RESO 360 ULTRA 235_17 FDA Start: 11-10-2022 EGD, with monitored anesthesia care CLIP,RESO 360 ULTRA 235_17 FDA Start: 11-10-2022 EGD, with monitored anesthesia care CLIP,RESO 360 ULTRA 235_17 FDA Start: 11-10-2022 Goals Date Patient Goal Desired Activity /State Functional Status Date Assessment Result Facility 11-19-2022 Functional status Ambulates;Price r;Bathroom Privilege [facility] Work Phone: 11-13-2022 Functional status Ambulates;Up ad sandra [facility] Work Phone: 12-20-2014 Are you deaf, or do you have serious difficulty hearing No 12/20/2014 7:59 AM Shilpi Varela MA No [facility] 12-20-2014 Are you blind, or do you have serious difficulty seeing, even when wearing glasses No 12/20/2014 7:59 AM Shilpi Varela MA No [facility] 12-20-2014 Do you have serious difficulty walking or climbing stairs No 12/20/2014 7:59 AM Shilpi Varela MA No [facility] 12-20-2014 Do you have difficul ty dressing or bathing No 12/20/2014 7:59 AM Shilpi Varela MA No [facility] 12-20-2014 Because of a physica l, mental, or emotional condition, do you have difficulty doing errands alone such as visiting a physician's office or shopping No 12/20/2014 7:59 AM EDT Shilpi Dupree MA No [facility] Mental Status Date Assessment Result Facility 11-19-2022 Cognitive function Voice/Name [facility] Work Phone: 11-18-2022 Cognitive function Appropriate;Cooperativ e [facility] Work Phone: 11-17-2022 Cognitive function Level Of Cons ciousness Awake;Alert;Appropriate [facility] Work Phone: 11-12-2022 Cognitive function Voice/Name [facility] Work Phone: 11-09-2022 Cognitive function Level Of Cons ciousness Drowsy [facility] Work Phone: 12-20-2014 Because of a physica l, mental, or emotional condition, do you have serious difficulty concentrating, remembering, or making decisions No 12/20/2014 7:59 AM EDT Shilpi Dupree MA No [facility] Clinical Notes 08-05-2017 to 02-19-2025 Telephone Encounter - Lizzette Dai MA - 02/19/2025 10:05 AM EDTTelephone Encounter - Lizzette Dai MA - 02/19/2025 10:05 AM DAYANTAnjelica Munoz APRN.[facility] - 11/06/2024 4:08 PM EDT Note Date & Type Note Facility 02-19-2025 Telephone encounter Note Patient's daughter notified and verbalized understanding. Lizzette Dai MA [facility] 02-19-2025 Miscellaneous Notes Patient's daughter notified and verbalized understanding. Lizzette Dai MA Rx sent. Removed mag oxide from his list. Should not be taking both, only the slow mag. Per EPIC, pt has been taking slow mag since 11/21/24 when daughter requested be sent to [facility] Lizzette Dai MA Rx sent except for magnesium. Is he taking slow mag or mag oxide? Changing pharmacy due to [facility] closing. Patient is completely out of meds but wants meds sent to [facility] pharmacy([facility]) which is not open until Wednesday. PATIENT and family is aware. Prescription Refill Information The patient has been identified by name and date of : Yes Caregiver verified no other encounters exist for this prescription request: Yes Caregiver confirmed with patient/requestor that no other refills are due, in the near future, with this provider at this time: Yes The last office visit in the department: 11/06/24 Does the patient have a future office visit with this provider/department: No Requested Prescriptions Pending Prescriptions Disp Refills allopurinol (ZYLOPRIM) 300 mg tablet 90 tablet Sig: Take 1 tablet by mouth once daily. calcium citrate (CALCITRATE) 200 mg (950 mg) tab 90 tablet 1 Sig: Take 0.5 tablets by mouth two times a day. finasteride (PROSCAR) 5 mg tablet 90 tablet Sig: Take 1 tablet by mouth once daily. furosemide (LASIX) 40 mg tablet 90 tablet 1 Sig: Take 1 tablet by mouth once daily. lisinopril (ZESTRIL) 10 mg tablet 90 tablet 1 Sig: Take 1 tablet by mouth once daily. Magnesium Chloride (SLOW-MAG) 71.5 mg TbEC 60 tablet 2 Sig: Take 2 tablets by mouth once daily. magnesium oxide (MAG-OX) 400 mg (241.3 mg magnesium) tablet 120 tablet 5 Sig: Take 2 tablets by mouth two times a day. omeprazole (PRILOSEC) 20 mg capsule 90 capsule 1 Sig: Take 1 capsule by mouth daily before breakfast. 1/2 hr before meal. tamsulosin (FLOMAX) 0.4 mg 90 capsule 1 Sig: Take 1 capsule by mouth once daily. Maryann Glover LPN February 17, 2025 11:13 AM documented in this encounter [facility] 02-19-2025 Telephone encounter Note Rx sent. Removed mag oxide from his list. Should not be taking both, only the slow mag. [facility] 02-19-2025 Telephone encounter Note Per EPIC, pt has been taking slow mag since 11/21/24 when daughter requested be sent to [facility] MA [facility] 02-19-2025 Telephone encounter Note Rx sent except for magnesium. Is he taking slow mag or mag oxide? [facility] 02-17-2025 Telephone encounter Note Changing pharmacy due to [facility]. Patient is completely out of meds but wants meds sent to [facility]'s pharmacy([facility]) which is not open until Wednesday. PATIENT and family is aware. Prescription Refill Information The patient has been identified by name and date of : Yes Caregiver verified no other encounters exist for this prescription request: Yes Caregiver confirmed with patient/requestor that no other refills are due, in the near future, with this provider at this time: Yes The last office visit in the department: 11/06/24 Does the patient have a future office visit with this provider/department: No Requested Prescriptions Pending Prescriptions Disp Refills allopurinol (ZYLOPRIM) 300 mg tablet 90 tablet Sig: Take 1 tablet by mouth once daily. calcium citrate (CALCITRATE) 200 mg (950 mg) tab 90 tablet 1 Sig: Take 0.5 tablets by mouth two times a day. finasteride (PROSCAR) 5 mg tablet 90 tablet Sig: Take 1 tablet by mouth once daily. furosemide (LASIX) 40 mg tablet 90 tablet 1 Sig: Take 1 tablet by mouth once daily. lisinopril (ZESTRIL) 10 mg tablet 90 tablet 1 Sig: Take 1 tablet by mouth once daily. Magnesium Chloride (SLOW-MAG) 71.5 mg TbEC 60 tablet 2 Sig: Take 2 tablets by mouth once daily. magnesium oxide (MAG-OX) 400 mg (241.3 mg magnesium) tablet 120 tablet 5 Sig: Take 2 tablets by mouth two times a day. omeprazole (PRILOSEC) 20 mg capsule 90 capsule 1 Sig: Take 1 capsule by mouth daily before breakfast. 1/2 hr before meal. tamsulosin (FLOMAX) 0.4 mg 90 capsule 1 Sig: Take 1 capsule by mouth once daily. Maryann Glover LPN February 17, 2025 11:13 AM [facility] 11-21-2024 Telephone encounter Note Daughter (Martine) returns call to review provider message again. Martine requests Slo Mag be sent to [facility] as [facility] Removed [facility] as preferred pharmacy and added [facility] as requested. Josephine Pedroza RN [facility] 11-21-2024 Miscellaneous Notes Daughter (Martine) returns call to review provider message again. Martine requests Slo Mag be sent to [facility] as [facility] Removed [facility] as preferred pharmacy and added [facility] as requested. Josephine Pedroza RN documented in this encounter [facility] 11-21-2024 Telephone encounter Note Tried to reach pt, VM not set up. Pt daughter Qi notified and voiced understanding. Shilpi Dupree MA [facility] 11-21-2024 Miscellaneous Notes Tried to reach pt, VM not set up. Pt daughter Qi notified and voiced understanding. Shilpi Dupree MA Stop OTC magnesium supplement and start slow mag 2 tablets daily. Recheck level in 2-4 weeks. Daughter calls back to check on request below. Asking for Dr. Tesfaye to advise so she doesn't have to go just get additional magnesium OTC without knowing what dose is recommended. Patient is taking magnesium 800 mg twice daily as prescribed. Results: 11/06/2024 Magnesium 1.0 range: 1.7-2.3 mg/dL Josephine Pedroza RN Patient's daughter calls and is asking about results and provider instructions. Daughter notified of these. Daughter states that patient already takes [address] BID. [address]. Tesfaye sends this prescription to [facility]. Daughter asking if increased dosage of prescription can be sent to pharmacy? Please review and advise, Funmilayo Sanches RN Telephone call placed to patient. VM box is not setup, unable to leave message. Letter sent as this is 3rd attempt in outreach. Kenyetta Luo LPN Attempted to contact patient; no answer; no voicemail set up. Devorah Guidry MA No answer and no VM set up- will try back later Martine See MA Please let patient know his HIV and hep c screen is negative. His magnesium is low and I would recommend him starting an OTC supplement daily. His other labs are stable. documented in this encounter [facility] 11-21-2024 Telephone encounter Note Stop OTC magnesium supplement and start slow mag 2 tablets daily. Recheck level in 2-4 weeks. [facility] 11-20-2024 Telephone encounter Note Daughter calls back to check on request below. Asking for Dr. Tesfaye to advise so she doesn't have to go just get additional magnesium OTC without knowing what dose is recommended. Patient is taking magnesium 800 mg twice daily as prescribed. Results: 11/06/2024 Magnesium 1.0 range: 1.7-2.3 mg/dL Josephine Pedroza, CINDY [facility] 11-20-2024 Telephone encounter Note Patient's daughter calls and is asking about results and provider instructions. Daughter notified of these. Daughter states that patient already takes [address] Magnesium BID. [address]. Tesfaye sends this prescription to [facility]. Daughter asking if increased dosage of prescription can be sent to pharmacy? Please review and advise, Funmilayo Sanches RN [facility] 11-13-2024 Telephone encounter Note Telephone call placed to patient. VM box is not setup, unable to leave message. Letter sent as this is 3rd attempt in outreach. Kenyetta Luo LPN [facility] 11-10-2024 Telephone encounter Note Attempted to contact patient; no answer; no voicemail set up. Devorah Guidry MA [facility] 11-09-2024 Telephone encounter Note No answer and no VM set up- will try back later Martine See MA [facility] 11-07-2024 Telephone encounter Note Please let patient know his HIV and hep c screen is negative. His magnesium is low and I would recommend him starting an OTC supplement daily. His other labs are stable. [facility] 11-06-2024 Note HNO ID: [id number] Author: ANJELICA MUNOZ APRN.INSURANCE DEFENSE ATTORNEY Service: ? Author Type: Nurse Practitioner Type: Progress Notes Filed: 11/06/2024 16:35 Note Text: Chief Complaint Patient presents with: Physical HPI Hansel Love is a 54 year old male who presents here today for Above Complaints.. Patient presents for annual physical. Denies concerns regarding his health. Past medical history, appointments, medications, allergies reviewed. Previous Medical History PAST MEDICAL HISTORY Diagnosis Date BLUE (acute kidney injury) (HCC) Alcohol abuse Anxiety BPH (benign prostatic hyperplasia) Chronic sinusitis 05/28/2017 CT: mucoperiosteal thickening and debri suggestion chronic sinusitis bilateral ethmoid and right maxillary Depression Essential hypertension GERD (gastroesophageal reflux disease) GI bleed DrCristhian Friend Gout Hip dysplasia chronic since shildhood. bilateral. Hypocalcemia Hypomagnesemia IBS (irritable bowel syndrome) primarily diarrhea Lipomatosis Marijuana use Sepsis (HCC) Serotonin syndrome Previous Surgical History PAST SURGICAL HISTORY Procedure Laterality Date PAST SURGICAL HISTORY OF Left 1986 removed calcium deposit from knee TONSILLECTOMY AND ADENOIDECTOMY Family History FAMILY HISTORY Problem Relation Age of Onset other (Other) Father heart issues, heart attack Diabetes Sister older sister Heart disease Sister Cancer Maternal Grandmother No Known Problems Daughter No Known Problems Son Patient Allergies ALLERGIES Allergen Reactions Penicillin G Hives Current Medications Current Outpatient Medications on File Prior to Visit Medication Sig omeprazole (PRILOSEC) 20 mg capsule Take 1 capsule by mouth daily before breakfast. 1/2 hr before meal. lisinopril (ZESTRIL) 10 mg tablet Take 1 tablet by mouth once daily. furosemide (LASIX) 40 mg tablet Take 1 tablet by mouth once daily. finasteride (PROSCAR) 5 mg tablet Take 1 tablet by mouth once daily. calcium citrate (CALCITRATE) 200 mg (950 mg) tab Take 0.5 tablets by mouth two times a day. allopurinol (ZYLOPRIM) 300 mg tablet Take 1 tablet by mouth once daily. magnesium oxide (MAG-OX) 400 mg (241.3 mg magnesium) tablet Take 2 tablets by mouth two times a day. tamsulosin (FLOMAX) 0.4 mg Take 1 capsule by mouth once daily. No current facility-administered medications on file prior to visit. Social History Social History Tobacco Use Smoking status: Every Day Current packs/day: 1.00 Average packs/day: 1 pack/day for 37.0 years (37.0 ttl pk-yrs) Types: Cigarettes Smokeless tobacco: Never Substance Use Topics Alcohol use: Not Currently Comment: once per month Drug use: Not Currently Types: Marijuana Comment: last use 2021 Review of Symptoms REVIEW OF SYSTEMS SEE HPI EXAM: BP 132/75 Wt 77 kg (169 lb 12.1 oz) BMI 25.07 kg/m? General Appearance: Well appearing, alert, in no acute distress, well-hydrated, well nourished. Skin: Skin color, texture, turgor normal, no suspicious rashes or lesions. Neck: Supple, no adenopathy; thyroid symmetric, normal size, no bruits. Lungs: Lungs clear to auscultation. No wheezing, rhonchi, rales.. Heart: RRR without murmur, gallop, or rubs. No ectopy. Abdomen: Normal abdominal exam, Abdomen soft, non-tender. Bowel sounds normal. No masses, organomegaly. Musculoskeletal: No joint swelling, deformity, or tenderness. Peripheral Pulses: Normal. Neurologic: Gait normal. Reflexes normal and symmetric. Sensation grossly intact.. Health Maintenance List Hepatitis C Screening Never done HIV Screening Never done BP Controlled (<130/80) Never done DTaP,Tdap,Td Vaccine(1 - Tdap) Never done Hepatitis B Vaccine(1 of 3 - 19+ 3-dose series) Never done Pneumococcal Vaccine: 50+(1 of 2 - PCV) Never done Colorectal Cancer Screening Never done Shingrix Vaccine(1 of 2) Never done Influenza Vaccine(1) due on 04/09/2024 Covid-19 Vaccine(2023- season) due on 04/09/2024 Annual PCP Team Chronic Disease Visit due on 09/09/2024 Prostate Cancer Screening Discussion due on 2024 Diabetes Screening due on 09/15/2026 Lipid Screening due on 03/03/2028 ASSESSMENT/PLAN: 1. Wellness examination - ICD9: V70.0, ICD10: Z00.00 (primary diagnosis) - Counseled on healthy diet and regular exercise - Colorectal cancer screening - ordered Cologuard - Risks/benefits of prostate cancer screening discussed. screening PSA ordered - Lung cancer screening - declined. Risks discussed. - Smoking cessation encouraged; discussed health risks and quitting strategies. Patient is not ready to quit - Follow up for annual exam in one year 2. Gastroesophageal reflux disease, unspecified whether esophagitis present - ICD9: 530.81, ICD10: K21.9 - Continue treatment with Prilosec 20 mg QD - COMPLETE BLOOD COUNT AND DIFFERENTIAL 3. Essential hypertension, benign - ICD9: 401.1, ICD10: I10 - Controlled - Continue cu (more content not included)... [facility] 11-06-2024 History of Presen t illness Narrative Chief Complaint Patient presents with: Physical HPI Hansel Love is a 54 year old male who presents here today for Above Complaints.. Patient presents for annual physical. Denies concerns regarding his health. Past medical history, appointments, medications, allergies reviewed. Previous Medical History PAST MEDICAL HISTORY Diagnosis Date BLUE (acute kidney injury) (HCC) Alcohol abuse Anxiety BPH (benign prostatic hyperplasia) Chronic sinusitis 05/28/2017 CT: mucoperiosteal thickening and debri suggestion chronic sinusitis bilateral ethmoid and right maxillary Depression Essential hypertension GERD (gastroesophageal reflux disease) GI bleed Dr. Friend Gout Hip dysplasia chronic since shildhood. bilateral. Hypocalcemia Hypomagnesemia IBS (irritable bowel syndrome) primarily diarrhea Lipomatosis Marijuana use Sepsis (HCC) Serotonin syndrome Previous Surgical History PAST SURGICAL HISTORY Procedure Laterality Date PAST SURGICAL HISTORY OF Left 1986 removed calcium deposit from knee TONSILLECTOMY & ADENOIDECTOMY <AGE 11 Family History FAMILY HISTORY Problem Relation Age of Onset other (Other) Father heart issues, heart attack Diabetes Sister older sister Heart disease Sister Cancer Maternal Grandmother No Known Problems Daughter No Known Problems Son Patient Allergies ALLERGIES Allergen Reactions Penicillin G Hives Current Medications Current Outpatient Medications on File Prior to Visit Medication Sig omeprazole (PRILOSEC) 20 mg capsule Take 1 capsule by mouth daily before breakfast. 1/2 hr before meal. lisinopril (ZESTRIL) 10 mg tablet Take 1 tablet by mouth once daily. furosemide (LASIX) 40 mg tablet Take 1 tablet by mouth once daily. finasteride (PROSCAR) 5 mg tablet Take 1 tablet by mouth once daily. calcium citrate (CALCITRATE) 200 mg (950 mg) tab Take 0.5 tablets by mouth two times a day. allopurinol (ZYLOPRIM) 300 mg tablet Take 1 tablet by mouth once daily. magnesium oxide (MAG-OX) 400 mg (241.3 mg magnesium) tablet Take 2 tablets by mouth two times a day. tamsulosin (FLOMAX) 0.4 mg Take 1 capsule by mouth once daily. No current facility-administered medications on file prior to visit. Social History Social History Tobacco Use Smoking status: Every Day Current packs/day: 1.00 Average packs/day: 1 pack/day for 37.0 years (37.0 ttl pk-yrs) Types: Cigarettes Smokeless tobacco: Never Substance Use Topics Alcohol use: Not Currently Comment: once per month Drug use: Not Currently Types: Marijuana Comment: last use 2021 Review of Symptoms REVIEW OF SYSTEMS SEE HPI EXAM: BP 132/75 Wt 77 kg (169 lb 12.1 oz) BMI 25.07 kg/m General Appearance: Well appearing, alert, in no acute distress, well-hydrated, well nourished. Skin: Skin color, texture, turgor normal, no suspicious rashes or lesions. Neck: Supple, no adenopathy; thyroid symmetric, normal size, no bruits. Lungs: Lungs clear to auscultation. No wheezing, rhonchi, rales.. Heart: RRR without murmur, gallop, or rubs. No ectopy. Abdomen: Normal abdominal exam, Abdomen soft, non-tender. Bowel sounds normal. No masses, organomegaly. Musculoskeletal: No joint swelling, deformity, or tenderness. Peripheral Pulses: Normal. Neurologic: Gait normal. Reflexes normal and symmetric. Sensation grossly intact.. Health Maintenance List Hepatitis C Screening Never done HIV Screening Never done BP Controlled (<130/80) Never done DTaP,Tdap,Td Vaccine(1 - Tdap) Never done Hepatitis B Vaccine(1 of 3 - 19+ 3-dose series) Never done Pneumococcal Vaccine: 50+(1 of 2 - PCV) Never done Colorectal Cancer Screening Never done Shingrix Vaccine(1 of 2) Never done Influenza Vaccine(1) due on 04/09/2024 Covid-19 Vaccine(2023- season) due on 04/09/2024 Annual PCP Team Chronic Disease Visit due on 09/09/2024 Prostate Cancer Screening Discussion due on 2024 Diabetes Screening due on 09/15/2026 Lipid Screening due on 03/03/2028 ASSESSMENT/PLAN: 1. Wellness examination - ICD9: V70.0, ICD10: Z00.00 (primary diagnosis) - Counseled on healthy diet and regular exercise - Colorectal cancer screening - ordered Cologuard - Risks/benefits of prostate cancer screening discussed. screening PSA ordered - Lung cancer screening - declined. Risks discussed. - Smoking cessation encouraged; discussed health risks and quitting strategies. Patient is not ready to quit - Follow up for annual exam in one year 2. Gastroesophageal reflux disease, unspecified whether esophagitis present - ICD9: 530.81, ICD10: K21.9 - Continue treatment with Prilosec 20 mg QD - COMPLETE BLOOD COUNT AND DIFFERENTIAL 3. Essential hypertension, benign - ICD9: 401.1, ICD10: I10 - Controlled - Continue current medications - Recommend home blood pressure monitoring, to bring results to next visit - Encouraged sodium restriction, DASH or Mediterranean diet - Recommend regular aerobic exercise - COMPREHENSIVE METABOLIC PANEL 4. Hypomagnesemia - ICD9: 275.2, ICD10: E83.42 - MAGNESIUM 5. Gout, unspecified cause, unspecified chronicity, unspecified site - ICD9: 274.9, ICD10: M10.9 - URIC ACID 6. Screening for diabetes mellitus - ICD9: V77.1, ICD10: Z13.1 - COMPREHENSIVE METABOLIC PANEL - HEMOGLOBIN A1C 7. Medication management - ICD9: V58.69, ICD10: Z79.899 - VITAMIN B12 8. Screening for prostate cancer - ICD9: V76.44, ICD10: Z12.5 - PSA/PROSTATE SPECIFIC ANTIGEN SCREENING 9. Screening for colon cancer - ICD9: V76.51, ICD10: Z12.11 - COLOGUARD 10. Screening for HIV (human immunodeficiency virus) - ICD9: V73.89, ICD10: Z11.4 - HIV 1/2 COMBO WITH REFLEX TO DIFFERENTIATION 11. Special screening examination for viral disease - ICD9: V73.99, ICD10: Z11.59 - HEPATITIS C ANTIBODY IA WITH CONFIRMATION 12. Heartburn - ICD9: 787.1, ICD10: R12 - OMEPRAZOLE 20 MG CAPSULE,DELAYED RELEASE 13. BPH with obstruction/lower urinary tract symptoms - ICD9: 600.01, 599.69, ICD10: N40.1, N13.8 -PSA -Continue tamsulosin 15. Anxiety - ICD9: 300.00, ICD10: F41.9 -No current medication regimen 16. Depression, unspecified depression type - ICD9: 311, ICD10: F32.A -No current medication regimen 17. Tobacco use disorder - ICD9: 305.1, ICD10: F17.200 - Cessation encouraged. - Physiologic and physical aspects of tobacco addiction as well as strategies for quitting were discussed. - Counseling was given focusing on the harmful effects of this addiction especially given the patient's medical condition(s) which will be worsened because of the chemicals in tobacco. Anjelica Munoz APRN.INSURANCE DEFENSE ATTORNEY documented in this encounter [facility] 10-02-2024 Telephone encounter Note Prescription Refill Information The patient has been identified by name and date of : Yes Caregiver verified no other encounters exist for this prescription request: Yes Caregiver confirmed with patient/requestor that no other refills are due, in the near future, with this provider at this time: Yes The last office visit in the department: Does the patient have a future office visit with this provider/department: Yes 10/25/24 PATIENT IS OUT OF MEDICATION Requested Prescriptions Pending Prescriptions Disp Refills omeprazole (PRILOSEC) 20 mg capsule 90 capsule 1 Sig: Take 1 capsule by mouth daily before breakfast. 1/2 hr before meal. lisinopril (ZESTRIL) 10 mg tablet 90 tablet 1 Sig: Take 1 tablet by mouth once daily. Aylin Bello October 02, 2024 2:51 PM [facility] 10-02-2024 Miscellaneous Notes Prescription Refill Information The patient has been identified by name and date of : Yes Caregiver verified no other encounters exist for this prescription request: Yes Caregiver confirmed with patient/requestor that no other refills are due, in the near future, with this provider at this time: Yes The last office visit in the department: Does the patient have a future office visit with this provider/department: Yes 10/25/24 PATIENT IS OUT OF MEDICATION Requested Prescriptions Pending Prescriptions Disp Refills omeprazole (PRILOSEC) 20 mg capsule 90 capsule 1 Sig: Take 1 capsule by mouth daily before breakfast. 1/2 hr before meal. lisinopril (ZESTRIL) 10 mg tablet 90 tablet 1 Sig: Take 1 tablet by mouth once daily. Aylin Bello October 02, 2024 2:51 PM documented in this encounter [facility] 07-10-2024 Telephone encounter Note Prescription Refill Information The patient has been identified by name and date of : Yes Caregiver verified no other encounters exist for this prescription request: Yes Caregiver confirmed with patient/requestor that no other refills are due, in the near future, with this provider at this time: Yes The last office visit in the department: 09/09/23 Does the patient have a future office visit with this provider/department: Yes Requested Prescriptions Pending Prescriptions Disp Refills omeprazole (PRILOSEC) 20 mg capsule 90 capsule 1 Sig: Take 1 capsule by mouth daily before breakfast. 1/2 hr before meal. furosemide (LASIX) 40 mg tablet 90 tablet 1 Sig: Take 1 tablet by mouth once daily. finasteride (PROSCAR) 5 mg tablet 90 tablet 1 Sig: Take 1 tablet by mouth once daily. calcium citrate (CALCITRATE) 200 mg (950 mg) tab 90 tablet 1 Sig: Take 0.5 tablets by mouth two times a day. allopurinol (ZYLOPRIM) 300 mg tablet 90 tablet 1 Sig: Take 1 tablet by mouth once daily. lisinopril (ZESTRIL) 10 mg tablet 90 tablet 1 Sig: Take 1 tablet by mouth once daily. magnesium oxide (MAG-OX) 400 mg (241.3 mg magnesium) tablet 120 tablet 5 Sig: Take 2 tablets by mouth two times a day. tamsulosin (FLOMAX) 0.4 mg 90 capsule 1 Sig: Take 1 capsule by mouth once daily. Lizzette Bello July 10, 2024 2:54 PM [facility] 07-10-2024 Miscellaneous Notes Prescription Refill Information The patient has been identified by name and date of : Yes Caregiver verified no other encounters exist for this prescription request: Yes Caregiver confirmed with patient/requestor that no other refills are due, in the near future, with this provider at this time: Yes The last office visit in the department: 09/09/23 Does the patient have a future office visit with this provider/department: Yes Requested Prescriptions Pending Prescriptions Disp Refills omeprazole (PRILOSEC) 20 mg capsule 90 capsule 1 Sig: Take 1 capsule by mouth daily before breakfast. 1/2 hr before meal. furosemide (LASIX) 40 mg tablet 90 tablet 1 Sig: Take 1 tablet by mouth once daily. finasteride (PROSCAR) 5 mg tablet 90 tablet 1 Sig: Take 1 tablet by mouth once daily. calcium citrate (CALCITRATE) 200 mg (950 mg) tab 90 tablet 1 Sig: Take 0.5 tablets by mouth two times a day. allopurinol (ZYLOPRIM) 300 mg tablet 90 tablet 1 Sig: Take 1 tablet by mouth once daily. lisinopril (ZESTRIL) 10 mg tablet 90 tablet 1 Sig: Take 1 tablet by mouth once daily. magnesium oxide (MAG-OX) 400 mg (241.3 mg magnesium) tablet 120 tablet 5 Sig: Take 2 tablets by mouth two times a day. tamsulosin (FLOMAX) 0.4 mg 90 capsule 1 Sig: Take 1 capsule by mouth once daily. Lizzette Bello July 10, 2024 2:54 PM documented in this encounter [facility] 03-21-2024 Telephone encounter Note Prescription Refill Information The patient has been identified by name and date of : Yes Caregiver verified no other encounters exist for this prescription request: Yes Caregiver confirmed with patient/requestor that no other refills are due, in the near future, with this provider at this time: Yes The last office visit in the department: 09/09/23 Does the patient have a future office visit with this provider/department: Yes Requested Prescriptions Pending Prescriptions Disp Refills allopurinol (ZYLOPRIM) 300 mg tablet 90 tablet 1 Sig: Take 1 tablet by mouth once daily. finasteride (PROSCAR) 5 mg tablet 90 tablet 1 Sig: Take 1 tablet by mouth once daily. tamsulosin (FLOMAX) 0.4 mg 90 capsule 1 Sig: Take 1 capsule by mouth once daily. Lizzette Lima [facility] March 21, 2024 10:33 AM [facility] 03-21-2024 Miscellaneous Notes Prescription Refill Information The patient has been identified by name and date of : Yes Caregiver verified no other encounters exist for this prescription request: Yes Caregiver confirmed with patient/requestor that no other refills are due, in the near future, with this provider at this time: Yes The last office visit in the department: 09/09/23 Does the patient have a future office visit with this provider/department: Yes Requested Prescriptions Pending Prescriptions Disp Refills allopurinol (ZYLOPRIM) 300 mg tablet 90 tablet 1 Sig: Take 1 tablet by mouth once daily. finasteride (PROSCAR) 5 mg tablet 90 tablet 1 Sig: Take 1 tablet by mouth once daily. tamsulosin (FLOMAX) 0.4 mg 90 capsule 1 Sig: Take 1 capsule by mouth once daily. Lizzette Lima [facility] March 21, 2024 10:33 AM documented in this encounter [facility] 01-24-2024 Telephone encounter Note Prescription Refill Information The patient has been identified by name and date of : Yes Caregiver verified no other encounters exist for this prescription request: Yes Caregiver confirmed with patient/requestor that no other refills are due, in the near future, with this provider at this time: Yes The last office visit in the department: 09/09/23 Does the patient have a future office visit with this provider/department: No Requested Prescriptions Pending Prescriptions Disp Refills lisinopril (ZESTRIL) 10 mg tablet 90 tablet 1 Sig: Take 1 tablet by mouth once daily. omeprazole (PRILOSEC) 20 mg capsule 90 capsule 1 Sig: Take 1 capsule by mouth daily before breakfast. 1/2 hr before meal. Lianna Hernadez [facility] January 24, 2024 9:06 AM [facility] 01-24-2024 Miscellaneous Notes Prescription Refill Information The patient has been identified by name and date of : Yes Caregiver verified no other encounters exist for this prescription request: Yes Caregiver confirmed with patient/requestor that no other refills are due, in the near future, with this provider at this time: Yes The last office visit in the department: 09/09/23 Does the patient have a future office visit with this provider/department: No Requested Prescriptions Pending Prescriptions Disp Refills lisinopril (ZESTRIL) 10 mg tablet 90 tablet 1 Sig: Take 1 tablet by mouth once daily. omeprazole (PRILOSEC) 20 mg capsule 90 capsule 1 Sig: Take 1 capsule by mouth daily before breakfast. 1/2 hr before meal. Lianna Bello January 24, 2024 9:06 AM documented in this encounter [facility] 10-25-2023 Miscellaneous Notes Patient has been identified by name and date of : Yes, Provider Celina Tesfaye MD Date October 25, 2023 Time 10:40 AM Patient phones for refill(s): Requested Prescriptions Pending Prescriptions Disp Refills finasteride (PROSCAR) 5 mg tablet 90 tablet 1 Sig: Take 1 tablet by mouth once daily. Date of last office visit in primary care: 09/09/2023 Date of next office visit in primary care: none Please advise. Thank you. Shilpi Dupree MA. Patient's daughter called that a new script needs to be sent in for Finasteride as it has . documented in this encounter [facility] 09-29-2023 Miscellaneous Notes Detailed message left on verified VM. Instructed to call office back if has any questions. Kenyetta Luo LPN Prescription for allopurinol sent. Danna Guillory APRN.ZULEMA Hansel is calling Celina Tesfaye MD today to request a medication that does not appear on current med list: allopurinol (ZYLOPRIM) 300 mg Please send to [facility] Patient has been identified by name and birthdate. Person calling: daughter: Martine Call patient at: on cell [phone] (home) [phone] (cell) Was an appointment scheduled: No Closing statement: Results or non-symptom based questions: Thank you for calling [facility], your call will be returned within the next business day. Sunshine Ardon documented in this encounter [facility] 09-28-2023 Miscellaneous Notes Patient has been identified by name and date of : Yes, Provider Celina Tesfaye MD Date 09/28/2023 Time 4:42 pm daughter phones for refill(s): Requested Prescriptions Pending Prescriptions Disp Refills tamsulosin (FLOMAX) 0.4 mg 90 capsule 1 Sig: Take 1 capsule by mouth once daily. Date of last office visit in primary care: 09/12/2023 Date of next office visit in primary care: Visit date not found Please advise. Thank you. Sunshine Ardon. documented in this encounter [facility] 09-20-2023 Miscellaneous Notes Martine Daughter given results below and verbalizes understanding. Haven Azul LPN Left message for patient to return call to office Martine See Cma Please let patient know their labs are normal. Patient may continue magnesium supplementation. documented in this encounter [facility] 09-13-2023 Miscellaneous Notes Pt's daughter Qi calling in to update Anjelica Munoz for the dermatology referral. She states she called [facility] and they do take her dad's insurance. Referral already ordered. Order faxed to [phone]. documented in this encounter [facility] 09-10-2023 Miscellaneous Notes Discussed at OV 09/09/2023. Kenyetta Luo LPN Called and left a voicemail for the Patient's daughter Martine to call back and ask for a nurse to receive the providers message. Karine Peña RN I would recommend checking her magnesium level to see if her level is low. See previous message about dosing. Can discuss tomorrow at OV with Anjelica. Will forward as FYI. Patients daughter Martine calling regarding pt's Magnesium Oxide order. Pt's current order is for magnesium oxide 400 mg 1 tablet twice daily (800 mg total). Per 08/19 note, pt called in and was adamant that he has taken 2 tablets twice daily (1600 mg total) for many years. Also per same note, Dr. Tesfaye advised: (Copied): Our records consistently show he is taking 1 tablet BID. Doesn't look like we have ever ordered higher dose than that. Would recommend taking as prescribed and can check magnesium level at future OV. Daughter Martine calling at this time to again state that patient has taken a total of 1600 mg of Magnesium Oxide for years and continues to do so, and has run out of his Magnesium prescription and it cannot be filled until 09/15. Daughter requesting Magnesium Oxide prescription be sent to [facility], for a total of 1600 mg daily. She also expresses that patient does not prefer to come in to have any Labs or a magnesium level checked anytime soon. Pt does have 3 month follow up scheduled with Anjelica Munoz CNP for tomorrow evening, 09/09/23. Please advise daughter Martine at [phone] Thank you. documented in this encounter [facility] 09-09-2023 History of Presen t illness Narrative Chief Complaint Patient presents with: Follow Up HPI Hansel Love is a 52 year old male who presents here today for Above Complaints.. Patient presents for routine follow up. Patient reports there is some discrepancy with his magnesium dosing. External prescribing records have instructions as 400 mg twice daily however patient has been taking 800 mg twice daily at the direction of his previous provider. Patient reports he continues to have dry skin to his legs and they are itchy. Patient has tried hydrocortisone cream and eucerin/aquaphor daily to his legs with no improvement. Past medical history, appointments, medications, allergies reviewed. Previous Medical History PAST MEDICAL HISTORY Diagnosis Date BLUE (acute kidney injury) (HCC) Alcohol abuse Anxiety BPH (benign prostatic hyperplasia) Chronic sinusitis 05/28/2017 CT: mucoperiosteal thickening and debri suggestion chronic sinusitis bilateral ethmoid and right maxillary Depression Essential hypertension GERD (gastroesophageal reflux disease) GI bleed DrCristhian Briscoe Gout Hip dysplasia chronic since shildhood. bilateral. Hypocalcemia Hypomagnesemia IBS (irritable bowel syndrome) primarily diarrhea Lipomatosis Marijuana use Sepsis (HCC) Serotonin syndrome Previous Surgical History PAST SURGICAL HISTORY Procedure Laterality Date PAST SURGICAL HISTORY OF Left 1987 removed calcium deposit from knee TONSILLECTOMY & ADENOIDECTOMY <AGE 11 Family History FAMILY HISTORY Problem Relation Age of Onset other (Other) Father heart issues, heart attack Diabetes Sister older sister Heart disease Sister Cancer Maternal Grandmother No Known Problems Daughter No Known Problems Son Patient Allergies ALLERGIES Allergen Reactions Penicillin G Hives Current Medications Current Outpatient Medications on File Prior to Visit Medication Sig magnesium oxide (MAG-OX) 400 mg (241.3 mg magnesium) tablet Take 1 tablet by mouth two times a day. lisinopril (ZESTRIL) 10 mg tablet Take 1 tablet by mouth once daily. omeprazole (PRILOSEC) 20 mg capsule Take 1 capsule by mouth daily before breakfast. 1/2 hr before meal. furosemide (LASIX) 40 mg tablet Take 1 tablet by mouth once daily. calcium citrate (CALCITRATE) 200 mg (950 mg) tab Take 0.5 tablets by mouth twice daily. allopurinol (ZYLOPRIM) 300 mg tablet Take 1 tablet by mouth once daily. finasteride (PROSCAR) 5 mg tablet Take 1 tablet by mouth once daily. tamsulosin (FLOMAX) 0.4 mg Take 1 capsule by mouth once daily. Current Facility-Administered Medications on File Prior to Visit Medication perflutren lipid microspheres 1.3 mL in NaCl (PF) 0.9% 10 mL injection (DEFINITY) sodium chloride 0.9 % (flush) 10 mL (BD POSIFLUSH) Social History Social History Tobacco Use Smoking status: Every Day Packs/day: 1.00 Years: 37.00 Additional pack years: 0.00 Total pack years: 37.00 Types: Cigarettes Smokeless tobacco: Never Substance Use Topics Alcohol use: Not Currently Comment: once per month Drug use: Not Currently Types: Marijuana Comment: last use 2021 Review of Symptoms REVIEW OF SYSTEMS SEE HPI EXAM: BP 100/60 Pulse 100 Resp 14 Wt 70.3 kg (155 lb) BMI 22.89 kg/m General Appearance: Well appearing, alert, in no acute distress, well-hydrated, well nourished.. Skin: Positives: Rash: Raised red rash with dry peeling skin to lower legs. Lungs: Lungs clear to auscultation. No wheezing, rhonchi, rales.. Heart: RRR without murmur, gallop, or rubs. No ectopy. Health Maintenance List Hepatitis B Vaccine(1 of 3 - 3-dose series) Never done Hepatitis C Screening Never done HIV Screening Never done Colorectal Cancer Screening Never done Lung Cancer Screening Never done Shingrix Vaccine(1 of 2) Never done Influenza Vaccine(1) due on 02/06/2024 DTaP,Tdap,Td Vaccine(1 - Tdap) due on 06/07/2024 Covid-19 Vaccine(4 - season) due on 06/07/2024 Annual PCP Team Chronic Disease Visit due on 06/07/2024 BP Controlled (<130/80) due on 06/07/2024 Diabetes Screening due on 06/07/2026 Lipid Screening due on 03/03/2028 Pneumococcal Vaccine Discontinued ASSESSMENT/PLAN: 1. Essential hypertension, benign - ICD9: 401.1, ICD10: I10 (primary diagnosis) - Controlled - Continue current medications - Recommend home blood pressure monitoring, to bring results to next visit - Encouraged sodium restriction, DASH or Mediterranean diet - Recommend regular aerobic exercise 2. Peripheral edema - ICD9: 782.3, ICD10: R60.0 -Improved 3. Gastroesophageal reflux disease, unspecified whether esophagitis present - ICD9: 530.81, ICD10: K21.9 - Discussed lifestyle modifications including losing weight, limiting caffeine, no meals three hours before sleep, and head of bed elevation - Continue treatment with Prilosec 20 mg QD 4. Anxiety - ICD9: 300.00, ICD10: F41.9 -Not currently on medications 5. Depression, unspecified depression type - ICD9: 311, ICD10: F32.A -Not currently on medications 6. Hypomagnesemia - ICD9: 275.2, ICD10: E83.42 - MAGNESIUM BLD 7. Hyponatremia - ICD9: 276.1, ICD10: E87.1 - COMP METABOLIC PANEL 8. Eczema, unspecified type - ICD9: 692.9, ICD10: L30.9 - discussed skin care of rash - follow up if symptoms persist or worsen. - CONSULT TO DERMATOLOGY Anjelica Munoz APRN.CNP documented in this encounter [facility] 06-08-2023 Miscellaneous Notes Call to pt and phone was ringing and call ended. Will try calling again later. Lenka Seay Ma Please let patient know his labs are normal. documented in this encounter [facility] 06-07-2023 History of Presen t illness Narrative Chief Complaint Patient presents with: Follow Up HPI Hansel Love is a 52 year old male who presents here today for Above Complaints.. Patient presents for routine follow up. Patient is currently doing well although patient continues to have itching to lower legs. Patient has not tried any otc anti histamines. Past medical history, appointments, medications, allergies reviewed. Previous Medical History PAST MEDICAL HISTORY Diagnosis Date BLUE (acute kidney injury) (HCC) Alcohol abuse Anxiety BPH (benign prostatic hyperplasia) Chronic sinusitis 05/28/2017 CT: mucoperiosteal thickening and debri suggestion chronic sinusitis bilateral ethmoid and right maxillary Depression Essential hypertension GERD (gastroesophageal reflux disease) GI bleed Dr. Briscoe Gout Hip dysplasia chronic since shildhood. bilateral. Hypocalcemia Hypomagnesemia IBS (irritable bowel syndrome) primarily diarrhea Lipomatosis Marijuana use Sepsis (HCC) Serotonin syndrome Previous Surgical History PAST SURGICAL HISTORY Procedure Laterality Date PAST SURGICAL HISTORY OF Left 1986 removed calcium deposit from knee TONSILLECTOMY & ADENOIDECTOMY <AGE 11 Family History FAMILY HISTORY Problem Relation Age of Onset other (Other) Father heart issues, heart attack Diabetes Sister older sister Heart disease Sister Cancer Maternal Grandmother No Known Problems Daughter No Known Problems Son Patient Allergies ALLERGIES Allergen Reactions Penicillin G Hives Current Medications Current Outpatient Medications on File Prior to Visit Medication Sig omeprazole (PRILOSEC) 20 mg capsule Take 1 capsule by mouth daily before breakfast. 1/2 hr before meal. furosemide (LASIX) 40 mg tablet Take 1 tablet by mouth once daily. calcium citrate (CALCITRATE) 200 mg (950 mg) tab Take 0.5 tablets by mouth twice daily. allopurinol (ZYLOPRIM) 300 mg tablet Take 1 tablet by mouth once daily. finasteride (PROSCAR) 5 mg tablet Take 1 tablet by mouth once daily. tamsulosin (FLOMAX) 0.4 mg Take 1 capsule by mouth once daily. lisinopril (ZESTRIL) 10 mg tablet Take 1 tablet by mouth once daily. magnesium oxide (MAG-OX) 400 mg (241.3 mg magnesium) tablet TAKE 1 TABLET BY MOUTH TWICE DAILY Current Facility-Administered Medications on File Prior to Visit Medication perflutren lipid microspheres 1.3 mL in NaCl (PF) 0.9% 10 mL injection (DEFINITY) sodium chloride 0.9 % (flush) 10 mL (BD POSIFLUSH) Social History Social History Tobacco Use Smoking status: Every Day Packs/day: 1.00 Years: 37.00 Additional pack years: 0.00 Total pack years: 37.00 Types: Cigarettes Smokeless tobacco: Never Substance Use Topics Alcohol use: Not Currently Comment: once per month Drug use: Not Currently Types: Marijuana Comment: last use 2021 Review of Symptoms REVIEW OF SYSTEMS SEE HPI EXAM: BP 110/72 Pulse 90 Resp 16 Wt 68.9 kg (152 lb) BMI 22.45 kg/m General Appearance: Well appearing, alert, in no acute distress, well-hydrated, well nourished.. Skin: Positives: multiple scabbed open areas to bilateral legs. Lungs: Lungs clear to auscultation. No wheezing, rhonchi, rales.. Heart: RRR without murmur, gallop, or rubs. No ectopy. Extremities: Positive findings: edema to bilateral legs. Health Maintenance List Hepatitis B Vaccine(1 of 3 - 3-dose series) Never done Pneumococcal Vaccine(1 - PCV) Never done Hepatitis C Screening Never done HIV Screening Never done DTaP,Tdap,Td Vaccine(1 - Tdap) Never done Colorectal Cancer Screening Never done Lung Cancer Screening Never done Shingrix Vaccine(1 of 2) Never done Influenza Vaccine(1) due on 04/09/2023 Covid-19 Vaccine( season) due on 04/09/2023 Annual PCP Team Chronic Disease Visit due on 03/03/2024 BP Controlled (<130/80) due on 03/03/2024 Diabetes Screening due on 03/03/2026 Lipid Screening due on 03/03/2028 ASSESSMENT/PLAN: 1. Gastroesophageal reflux disease, unspecified whether esophagitis present - ICD9: 530.81, ICD10: K21.9 (primary diagnosis) - Discussed lifestyle modifications including losing weight, limiting caffeine, no meals three hours before sleep, and head of bed elevation - Continue treatment with Prilosec 20 mg QD 2. Essential hypertension, benign - ICD9: 401.1, ICD10: I10 - Controlled - Continue current medications - Recommend home blood pressure monitoring, to bring results to next visit - Encouraged sodium restriction, DASH or Mediterranean diet - Recommend regular aerobic exercise - Discussed need for and benefit of weight loss. BMI 22.45 kg/(m^2) 3. Depression, unspecified depression type - ICD9: 311, ICD10: F32.A -not currently on medication, clinically stable 4. Anxiety - ICD9: 300.00, ICD10: F41.9 -not currently on medication, clinically stable 5. Hyponatremia - ICD9: 276.1, ICD10: E87.1 - COMP METABOLIC PANEL 6. Bilateral lower extremity edema - ICD9: 782.3, ICD10: R60.0 - US LEG ARTERIAL PERIPH [facility] - PVR ANK PRESS [facility] 7. Itching with irritation - ICD9: 698.9, ICD10: L29.9 - CETIRIZINE 10 MG TABLET Anjelica Munoz APRN.INSURANCE DEFENSE ATTORNEY documented in this encounter [facility] 05-31-2023 Miscellaneous Notes Pt's daughter calling. She states her dad called her and said he is completely out of his Omeprazole and hasn't had any for 5 days. She is asking if there is any possibility to get this med refilled today. Explained that we have 48-72 hours to refill prescriptions. Pt has an appt with Anjelica Munoz next Thursday 06/07. Patient has been identified by name and date of : Yes, Provider Dr. Tesfaye Date 05/31/23 Time 1500 Daughter phones for refill(s): Requested Prescriptions Pending Prescriptions Disp Refills omeprazole (PRILOSEC) 20 mg capsule 90 capsule 1 Sig: Take 1 capsule by mouth daily before breakfast. 1/2 hr before meal. Date of last office visit in primary care: 03/03/2023 Date of next office visit in primary care: 06/07/2023 with Anjelica Munoz Last 2 Encounter Wt Readings: Date: Wt: 03/03/2023 78.9 kg (174 lb) 01/05/2023 82.1 kg (181 lb) Previous labs/tests for medication: Liver Function: ALT (U/L) Date Value 03/03/2023 17 08/06/2017 22 AST (U/L) Date Value 03/03/2023 29 08/06/2017 25 Please advise. Thank you. Skylar Barry RN. documented in this encounter [facility] 03-23-2023 Miscellaneous Notes Received PA request for Calcium tablets. Medicaid will not cover supplements that can be purchased OTC. Did leave detailed vm on daughter voicemail Aura Esquivel Ma documented in this encounter [facility] 03-22-2023 Miscellaneous Notes Patient's daughter Martine returned call and given update below. Aylin Ac RN Called and left a voicemail for the Patient's daughter to call back and ask for a nurse to receive the providers message that Pts medication had been sent in on 03/19/23. Karine Peña RN Pt has not had his medication for the last 4 days. Please call daughter and let her know when medications have been sent in. Patient has been identified by name and date of : Yes, Provider Dr Tesfaye Date 03/19/23 Time 0951. Daughter phones for refill(s): Requested Prescriptions Pending Prescriptions Disp Refills furosemide (LASIX) 40 mg tablet 30 tablet 0 Sig: Take 1 tablet by mouth once daily. calcium citrate (CALCITRATE) 200 mg (950 mg) tab Sig: Take 0.5 tablets by mouth twice daily. allopurinol (ZYLOPRIM) 300 mg tablet Sig: Take 1 tablet by mouth once daily. finasteride (PROSCAR) 5 mg tablet 30 tablet 0 Sig: Take 1 tablet by mouth once daily. tamsulosin (FLOMAX) 0.4 mg 30 capsule 5 Sig: Take 1 capsule by mouth once daily. Date of last office visit in primary care: 03/03/23 Future visit: 06/03/23 Last 2 Encounter Wt Readings: Date: Wt: 03/03/2023 78.9 kg (174 lb) 01/05/2023 82.1 kg (181 lb) Previous labs/tests for medication: Blood Pressure: BUN (mg/dL) Date Value 03/03/2023 10 11/02/2016 15 Sodium (mmol/L) Date Value 03/03/2023 134 11/02/2016 138 Last 1 Encounter BP Readings: Date: BP: 03/03/2023 116/70 Liver Function: ALT (U/L) Date Value 03/03/2023 17 08/06/2017 22 AST (U/L) Date Value 03/03/2023 29 08/06/2017 25 Please advise. Thank you. Karine Peña, RN documented in this encounter [facility] 03-06-2023 Miscellaneous Notes Phoned patient and reviewed results and recommendations with him. Patient repeated recommendations back and voiced understanding. ----- Message from Celina Tesfaye MD sent at 03/06/2023 10:34 AM EDT ----- Improving anemia. Mild elevation in platelets which could be inflammatory or related to hydration. Slightly low sodium level. Recommend abstinence from alcohol, and gentle hydration with water to the point urine is light yellow in color. Watch for leg swelling on lasix. Recheck labs in 3-6 months. documented in this encounter [facility] 03-03-2023 Miscellaneous Notes Request for NEETA faxed to Dr. Osman at [phone] Lizzette Dai MA documented in this encounter [facility] 03-03-2023 History of Presen t illness Narrative Chief Complaint Patient presents with: Establish Care HPI Hansel Love is a 52 year old male who presents here today for Above Complaints. Accompanied today by his daughter Martine. States that he was previously seeing Dr. Osman in [place] with last OV in the last 6 months. Patient complaining of lower extremity edema which first started when he was admitted for GI bleed and sepsis to [facility] back in November. Has had follow ups with Anjelica Munoz starting in December and was treated with lasix and metolazone successfully. Stopped medication on 01/05 and then restarted lasix on 02/01. Swelling is much better than when he first presented. Diuresing well on lasix 40 mg. BNP and echo unremarkable. Has compression stockings, but has not been using them. BPH on Proscar and Flomax. Denies weak stream, straining, dysuria, hematuria, getting up more than 1 time per night. GERD controlled on Prilosec daily. BP well controlled on lisinopril. Anxiety and depression in remission for years. History of alcohol abuse and continues to drink about 2 drinks per month. Used to drink at least a 12 pack per day plus whiskey. Not going to AA, NA, [facility] or [facility] and is refusing information today. Past medical history, appointments, medications, allergies reviewed. Previous Medical History PAST MEDICAL HISTORY Diagnosis Date BLUE (acute kidney injury) (HCC) Alcohol abuse Anxiety BPH (benign prostatic hyperplasia) Chronic sinusitis 05/28/2017 CT: mucoperiosteal thickening and debri suggestion chronic sinusitis bilateral ethmoid and right maxillary Depression GI bleed Dr. Friend Gout Hip dysplasia chronic since shild. bilateral. Hypocalcemia IBS (irritable bowel syndrome) primarily diarrhea Lipomatosis Marijuana use Sepsis ([facility]) Serotonin syndrome Previous Surgical History No past surgical history on file. Family History FAMILY HISTORY Problem Relation Age of Onset other (Other) Father heart issues, heart attack Diabetes Sister older sister Patient Allergies ALLERGIES Allergen Reactions Penicillin G Hives Current Medications Current Outpatient Medications on File Prior to Visit Medication Sig furosemide (LASIX) 40 mg tablet Take 1 tablet by mouth once daily. omeprazole (PRILOSEC) 20 mg capsule Take 1 capsule by mouth daily before breakfast. 1/2 hr before meal. lisinopril (ZESTRIL) 10 mg tablet Take 1 tablet by mouth once daily. allopurinol (ZYLOPRIM) 300 mg tablet Take 300 mg by mouth once daily. calcium citrate (CALCITRATE) 200 mg (950 mg) tab Take 400 mg by mouth twice daily. finasteride (PROSCAR) 5 mg tablet TAKE 1 TABLET EVERY DAY tamsulosin ER (FLOMAX) 0.4 mg cap TAKE 1 CAPSULE BY MOUTH EVERY DAY magnesium oxide (MAG-OX) 400 mg (241.3 mg magnesium) tablet TAKE 1 TABLET BY MOUTH TWICE DAILY Current Facility-Administered Medications on File Prior to Visit Medication perflutren lipid microspheres 1.3 mL in NaCl (PF) 0.9% 10 mL injection (DEFINITY) sodium chloride 0.9 % (flush) 10 mL (BD POSIFLUSH) Social History Social History Tobacco Use Smoking status: Every Day Packs/day: 1.00 Years: 25.00 Total pack years: 25.00 Types: Cigarettes Smokeless tobacco: Never Substance Use Topics Alcohol use: Yes Alcohol/week: 15.0 standard drinks of alcohol Types: 6 Cans of Beer (12oz) per week Drug use: Yes Types: Marijuana Review of Symptoms REVIEW OF SYSTEMS GENERAL: No weight loss, malaise or fevers RESPIRATORY: Negative for cough, hemoptysis, wheezing, COPD, dyspnea or shortness of breath CARDIOVASCULAR: Negative for chest pain, leg swelling, hypertension, CHF or palpitations GI: No nausea, vomiting, or diarrhea SKIN: Negative for lesions, rash, and itching EXAM: BP 116/70 Pulse 92 Resp 16 Ht 175.3 cm (5' 9) Wt 78.9 kg (174 lb) BMI 25.70 kg/m General Appearance: Well appearing, alert, in no acute distress, well-hydrated, well nourished.. Skin: excoriations on anterior shins bilaterally with small amount of bleeding on right hernandez. Lungs: Lungs clear to auscultation. No wheezing, rhonchi, rales.. Heart: RRR without murmur, gallop, or rubs. No ectopy. Abdomen: Normal abdominal exam, Abdomen soft, non-tender. Bowel sounds normal. No masses, organomegaly. Extremities: No deformities, edema, skin discoloration, clubbing or cyanosis. Good capillary refill. . Health Maintenance List HEPATITIS B(1 of 3 - 3-dose series) Never done PNEUMOCOCCAL(1 - PCV) Never done HEPATITIS C SCREENING Never done HIV SCREENING Never done DTAP,TDAP,TD(1 - Tdap) Never done COLORECTAL CANCER SCREENING Never done LUNG CANCER SCREENING Never done SHINGRIX VACCINE(1 of 2) Never done COVID-19 VACCINE(4 - Moderna series) due on 10/10/2021 LIPID SCREEN due on 11/02/2021 INFLUENZA(1) due on 04/09/2023 ANNUAL PCP TEAM CHRONIC DISEASE VISIT due on 01/06/2024 BP CONTROLLED (<130/80) due on 01/06/2024 DIABETES SCREEN due on 12/22/2025 Data reviewed Component Latest Ref Rng & Units 12/22/2022 Protein, Total 6.3 - 8.0 g/dL 6.7 Albumin 3.9 - 4.9 g/dL 4.3 Calcium 8.5 - 10.2 mg/dL 9.9 Bilirubin, Total 0.2 - 1.3 mg/dL 0.2 Alkaline Phosphatase 38 - 113 U/L 91 AST 14 - 40 U/L 17 ALT 10 - 54 U/L 10 Glucose 74 - 99 mg/dL 93 BUN 9 - 24 mg/dL 11 Creatinine 0.73 - 1.22 mg/dL 0.85 Sodium 136 - 144 mmol/L 134 (L) Potassium 3.7 - 5.1 mmol/L 4.6 Chloride 97 - 105 mmol/L 99 CO2 22 - 30 mmol/L 29 Anion Gap 9 - 18 mmol/L 6 (L) eGFR >=60 mL/min/1.73m 104 NT Pro BNP <125 pg/mL 56 ASSESSMENT/PLAN: 1. Bilateral lower extremity edema - ICD9: 782.3, ICD10: R60.0 (primary diagnosis) Improved on current regimen. Obtain US to evaluate for venous insufficiency. Recheck labs as ordered. Discussed wearing compression stockings daily. Should abstain from alcohol and work on low sodium diet <2,000 mg daily. - CBC + DIFF - COMP METABOLIC PANEL - LIPID PANEL, NONFASTING - US VENOUS REFLUX BILATERAL 2. Itching - ICD9: 698.9, ICD10: L29.9 Complaining of leg itching with excoriations on exam. Discussed moisturizing cream BID and hydrocortisone PRN along with OTC antihistamines. Red flags for re-assessment reviewed with patient in detail. 3. Multiple excoriations - ICD9: 919.8, ICD10: T07.XXXA See above. Advised to avoid scratching as it can lead to infection. Red flags for re-assessment reviewed with patient in detail. 4. Essential hypertension, benign - ICD9: 401.1, ICD10: I10 - Controlled - Continue current medications - Recommend home blood pressure monitoring, to bring results to next visit - Encouraged sodium restriction, DASH or Mediterranean diet - Recommend regular aerobic exercise 5. Alcohol abuse - ICD9: 305.00, ICD10: F10.10 Still drinking occasionally. Recommended he abstain. Refusing referral information. 6. Tobacco use disorder - ICD9: 305.1, ICD10: F17.200 - Cessation encouraged. - Physiologic and physical aspects of tobacco addiction as well as strategies for quitting were discussed. - Counseling was given focusing on the harmful effects of this addiction especially given the patient's medical condition(s) which will be worsened because of the chemicals in tobacco. 7. Gastroesophageal reflux disease, unspecified whether esophagitis present - ICD9: 530.81, ICD10: K21.9 - Continue treatment with Prilosec 20 mg QD 8. Gastrointestinal hemorrhage, unspecified gastrointestinal hemorrhage type - ICD9: 578.9, ICD10: K92.2 No recurrent symptoms. F/u with GI. Continue PPI. Will obtain records. Recheck CBC. 9. Gout, unspecified cause, unspecified chronicity, unspecified site - ICD9: 274.9, ICD10: M10.9 Controlled on allopurinol. 10. Anxiety - ICD9: 300.00, ICD10: F41.9 In remission. 11. Depression, unspecified depression type - ICD9: 311, ICD10: F32.A In remission. 12. Hypocalcemia - ICD9: 275.41, ICD10: E83.51 Recheck CMP. I spent a total of 40 minutes on the date of the service which included preparing to see the patient, [id number] patient care, completing clinical documentation, obtaining and/or reviewing separately obtained history, performing a medically appropriate examination, counseling and educating the patient/family/caregiver, and ordering medications, tests, or procedures. Celina Tesfaye MD documented in this encounter [facility] 02-01-2023 Miscellaneous Notes Daughter notified and verbalized understanding Martine See Cma Please let patient know I have ordered lasix. Martine, daughter calling to let you know, pt's having swelling slightly above ankles his socks are leaving rings and pt is complaining it hurts to walk x 3 days. Daughter feels they caught this before it gets bad like last time. Area hurts, red, not certain if warm to touch. Daughter asking if maybe starting him on Lasix would stop all this. Last time he was put on 2 medications and it worked well. Denies, Chest pain, fever or difficulty breathing Please review and advise pt. Haven Azul LPN documented in this encounter [facility] 01-07-2023 Miscellaneous Notes Pt called and is notified of providers results and instructions. Pt voices understanding. Karine Peña RN Please let patient know his echo shows slight left ventricular dysfunction. He can discuss this further with Dr. Tesfaye at his follow up. documented in this encounter [facility] 01-05-2023 Instructions Anjelica Munoz APRN.CNP - 01/05/2023 12:29 PM EDT Stop pantoprazole, lasix, metolazone Continue lasix Start omeprazole Follow up as scheduled. documented in this encounter [facility] 01-05-2023 History of Presen t illness Narrative Chief Complaint Patient presents with: Recheck HPI Hansel Love is a 52 year old male who presents here today for Above Complaints.. Patient presents for follow up. Patient legs are no longer swollen and he is tolerating lisinopril well. Past medical history, appointments, medications, allergies reviewed. Previous Medical History PAST MEDICAL HISTORY Diagnosis Date Alcohol abuse Anxiety Chronic sinusitis 05/28/2017 CT: mucoperiosteal thickening and debri suggestion chronic sinusitis bilateral ethmoid and right maxillary Depression Hip dysplasia chronic since shildhood. bilateral. IBS (irritable bowel syndrome) primarily diarrhea Lipomatosis Marijuana use Previous Surgical History No past surgical history on file. Family History FAMILY HISTORY Problem Relation Age of Onset other (Other) Father heart issues, heart attack Diabetes Sister older sister Patient Allergies ALLERGIES Allergen Reactions Penicillin G Hives Current Medications Current Outpatient Medications on File Prior to Visit Medication Sig metOLazone (ZAROXOLYN) 2.5 mg tablet Take 1 tablet by mouth once daily. furosemide (LASIX) 40 mg tablet Take 1 tablet by mouth once daily. lisinopril (ZESTRIL) 5 mg tablet Take 2 tablets by mouth once daily. allopurinol (ZYLOPRIM) 300 mg tablet Take 300 mg by mouth once daily. sucralfate (CARAFATE) 1 gram tablet Take 1 g by mouth every [address] (PROTONIX) 40 mg tablet Take 40 mg by mouth twice daily. calcium citrate (CALCITRATE) 200 mg (950 mg) tab Take 400 mg by mouth twice daily. finasteride (PROSCAR) 5 mg tablet TAKE 1 TABLET EVERY DAY tamsulosin ER (FLOMAX) 0.4 mg cap TAKE 1 CAPSULE BY MOUTH EVERY DAY magnesium oxide (MAG-OX) 400 mg (241.3 mg magnesium) tablet TAKE 1 TABLET BY MOUTH TWICE DAILY Current Facility-Administered Medications on File Prior to Visit Medication perflutren lipid microspheres 1.3 mL in NaCl (PF) 0.9% 10 mL injection (DEFINITY) sodium chloride 0.9 % (flush) 10 mL (BD POSIFLUSH) Social History Social History Tobacco Use Smoking status: Every Day Packs/day: 1.00 Years: 25.00 Pack years: 25.00 Types: Cigarettes Smokeless tobacco: Never Substance Use Topics Alcohol use: Yes Alcohol/week: 15.0 standard drinks Types: 6 Cans of Beer (12oz) per week Drug use: Yes Types: Marijuana Review of Symptoms REVIEW OF SYSTEMS SEE HPI EXAM: BP 120/76 Pulse 92 Resp 14 Wt 82.1 kg (181 lb) BMI 27.50 kg/m General Appearance: Well appearing, alert, in no acute distress, well-hydrated, well nourished.. Peripheral Pulses: Normal. Health Maintenance List HEPATITIS B(1 of 3 - 3-dose series) Never done PNEUMOCOCCAL(1 - PCV) Never done HEPATITIS C SCREENING Never done HIV SCREENING Never done BP CONTROLLED (<130/80) Never done DTAP,TDAP,TD(1 - Tdap) Never done COLORECTAL CANCER SCREENING Never done SHINGRIX VACCINE(1 of 2) Never done COVID-19 VACCINE(4 - Booster for Moderna series) due on 10/10/2021 LIPID SCREEN due on 11/02/2021 INFLUENZA(Season Ended) due on 04/09/2023 ANNUAL PCP TEAM CHRONIC DISEASE VISIT due on 12/29/2023 DIABETES SCREEN due on 12/22/2025 ASSESSMENT/PLAN: 1. Heartburn - ICD9: 787.1, ICD10: R12 (primary diagnosis) - Stop Pantoprazole - OMEPRAZOLE 20 MG CAPSULE,DELAYED RELEASE 2. Peripheral edema - ICD9: 782.3, ICD10: R60.9 - LISINOPRIL 10 MG TABLET 3. Primary hypertension - ICD9: 401.9, ICD10: I10 - good control - Continue current medication(s) - Discontinue furosemide (Lasix), metolazone - Recommended regular aerobic exercise. - Recommend home blood pressure monitoring, to bring results in on next visit - Goal of BP <130/80 - LISINOPRIL 10 MG TABLET Anjelica Munoz APRN.INSURANCE DEFENSE ATTORNEY documented in this encounter [facility] 11-18-2022 Progress note Note Date/Time November 18, 2022 12:15pm [facility] Medical Records Department [address] [place] [address] Progress Note - Hospitalist 11/18/22 1212 MR#: [id number] Acct: [id number] Name: LOVEHANSEL PAULA Bray Rep #:[id number] : 1970 52 From: Justa Davidson MD PCP: Dr. Zia Osman MD Status:AD M IN Location: [place] [address] Reason for Visit Reason for Visit: Diagnoses Hypomagnesemia (11/17/22) Hypocalcemia (11/17/22) Subjective Subjective Pain in feet as well as numbness and tingling significantly improved Objective Data Objective Data Vital Signs: Vital Signs Temp Pulse Resp BP Pulse Ox O2 Del Method 97.8 F 93 16 141/87 H 98 Room Air 11/18/22 08:32 11/18/22 08:32 11/18/22 08:32 11/18/22 08:32 11/18/22 08:32 11/18/22 08:35 Oxygen Delivery Method Room Air Weight: 94.7 kg Body Mass Index (BMI) 30.8 Intake & Output: Intake and Output for Last 24 Hours 11/16/22 11/17/22 11/18/22 23:59 23:59 23:59 Intake Total 236.67 / 536.67 1751.67 / 1751.67 Balance 236.67 / 536.67 1751.67 / 1751.67 Lab / Micro Data Result Diagrams: 11/18/22 01:47 11/18/22 01:47 Labs: Laboratory Results - last 24 hr 11/17/22 15:22: Magnesium 0.3 L* 11/17/22 19:37: PTH Intact 146.3 H 11/17/22 19:37: Sodium 141, Potassium 3.5, Chloride 111 H, Carbon Dioxide 27.0, Anion Gap 3 L, BUN 8, Creatinine 0.73, Estim Creat Clear Calc 117.03, Est GFR (MDRD) Af Amer 145, Est GFR (MDRD) Non-Af 120, BUN/Creatinine Ratio 11.0, Glucose 134 H, Calcium 6.9 L, Magnesium 1.2 L 11/17/22 21:56: Ur Random Sodium 181, Ur Random Calcium 9.6, Urine Creatinine 43.70, Urine Potassium 6.0, Urine Chloride 125, Urine Urea Nitrogen 238 11/17/22 22:45: Sodium 141, Potassium 3.7, Chloride 111 H, Carbon Dioxide 24.0, Anion Gap 6, BUN 8, Creatinine 0.66 L, Estim Creat Clear Calc 129.44, Est GFR (MDRD) Af Amer 162, Est GFR (MDRD) Non-Af 134, BUN/Creatinine Ratio 12.1, Glucose 141 H, Calcium 7.0 L, Magnesium 1.8 11/18/22 01:47: Sodium 139, Potassium 3.9, Chloride 112 H, Carbon Dioxide 24.0, Anion Gap 3 L, BUN 7, Creatinine 0.63 L, Estim Creat Clear Calc 135.60, Est GFR (MDRD) Af Amer 172, Est GFR (MDRD) Non-Af 142, BUN/Creatinine Ratio 11.1, Glucose 98, Calcium 7.7 L, Phosphorus 3.9, Magnesium 1.9, Total Bilirubin 0.10 L, AST 26, ALT 32, Alkaline Phosphatase 91, Total Protein 5.7 L, Albumin 2.5 L, Globulin 3.2, Albumin/Globulin Ratio 0.8 L 11/18/22 01:47: WBC 12.8 H, RBC 3.09 L, Hgb 10.0 L, Hct 31.5 L, MCV 101.9 H, MCH32.4 H, MCHC 31.7 L, RDW Std Deviation 49.9 H, RDW Coeff of Oleksandr 13.3, Plt Count 502 H, MPV 9.3, Immature Gran % (Auto) 0.800, Neut % (Auto) 67.1, Lymph % (Auto)18.4 L, Morton % (Auto) 8.5, Eos % (Auto) 4.6, Baso % (Auto) 0.6, Absolute Neuts (auto) 8.6 H, Absolute Lymphs (auto) 2.35, Nucleated RBC % 0 Physical Exam Narrative General: Alert, oriented, no apparent distress HEENT: Atraumatic, normocephalic, Chv[place]ek sign negative Eyes: Anicteric, normal conjunctiva, extraocular movements grossly intact, no nystagmus on far lateral gaze Neck: Supple Respiratory: Clear to auscultation bilaterally, normal respiratory effort Cardiovascular: Regular rate and rhythm GI: Soft, nontender, nondistended Extremities: No edema Musculoskeletal: Moving all extremities Neuro: No overt focal neurological deficits Skin: No rashes appreciated Psych: Cooperative Assessment & Plan Assessment/Plan (1) Hypocalcemia syndrome: (2) Hypomagnesemia: PLAN: Plan #Hypocalcemia and hypomagnesemia -Symptomatic with tingling in hands and feet, Chvostek sign positive -Ca 6.1 despite being 7.4 several days ago (still low when corrected for alb) and magnesium 0.3mg -Pt reports taking his Ca and Mg supplements and that he has not been drinking, also denies any diarrhea in multiple days -Given his severity of renal injury with creatinine returning to normal could bepost kidney injury diuresis causing magnesium wasting leading PTH resistance or deficiency, no s/s of pancreatitis and lipase not elevated -I's and O's, daily weights -Received 4 g of calcium and 4 g of magnesium in ED -Will start fluids -Slightly elevated white blood cell count however no signs or symptoms of infection, monitor closely -Will monitor on tele, EKG 92 HR, NSR -Trend BMP and mg -Check phos, vitamin d, pth -Urine Ca magnesium and urine creatinine -Suspect kidney as source of current electrolyte abnormalities, if unable to correct may need to consider discontinuing PPI though do not feel that would cause this profound change in this short period of time -11/18: Improving, suspect low calcium was due to his low magnesium which is likely being in screen in excess by his kidneys given his recent kidney injury with return of creatinine to normal. Magnesium improved but given his quick decline after improvement prior to discharge last time will have slow infusion of 8 g of magnesium over the next 24 hours and assess again tomorrow. It is possible that his sucralfate and Protonix are leading to decreased absorption but these are critical medications for him at this time so we will do our best to manage this. Continue oral supplementation in conjunction. If no improvement or further concerns will consult nephrology tomorrow #History of upper GI bleed -During his last admission earlier this month had EGD that showed erosive esophagitis and oozing gastric ulcers with visible vessel -Is on PPI 40 mg twice daily and sucralfate -Hemoglobin stable #Tobacco use -Nicotine patch -Advised cessation #hx gout -Reports hx #Hx of alcohol use disorder- in remission -Continue to encourage cessation #DVT ppx: SCDs given recent GI bleed Justa Davidson MD Time spent in the patient's overall evaluation,decision-making process, review of diagnostic data, adjustment of management, discussion with other providers, nursing nursing and ancillary staff involved in patient's care documentation, 30minutes Charges/Coding Visit Charges Inpatient E&M: 57686 Subs Hosp L2 11/18/22 1326 <Electronically signed by Justa Davidson MD> Cosigner Signature (if applicable): CC: ~ Signed [facility] Work Phone: 1(720) 963-144804-11-2023 History and physical note Author Dr. Davidson [facility] November 17, 2022 5:45pm Note Date/Time November 17, 2022 4:[address] [facility] Medical Records Department [address] [place] [address] H&P Exam - Hospitalist 11/17/22 1641 MR#: [id number] Acct: [id number] Name: HANSEL LOVE Jr. Rep #:[id number] : 1970 52 From: Justa Davidson MD PCP: Dr. Zia Osman MD Status:AD M IN Location: [facility] LUV485- 1 HPI - General General Date of Admission: 11/17/22 Date of Service: 11/17/22 Chief Complaint: Abnormal labs HPI Narrative HANSEL LOVE, is a 52 M with a history of gout, alcohol use disorder in early remission, GI bleed status post cauterization, BPH who presented to [facility] 11/17/22 due to lab abnormalities. He was recently admitted to the hospital for septic shock and had acute kidney failure as well as upper GI bleed bleed and EGD showed erosive esophagitis and oozing gastric ulcer with visible vessel. He was seen today at his gastroenterology office follow-up and had labs ordered, he was found to have a calcium of 6.1 and was sent to the emergency department. In the ED he had a magnesium checked which was 0.3 and hewas found to be symptomatic with his hypocalcemia, hospitalist consulted for admission. Patient reports that he had overall been doing better since getting out of the hospital and has not been drinking but has had some numbness and tingling in his fingers and toes over the past several days. Also has had some aching in his feet and ankles since he started walking on the more she is unsureif it is gout or not as he has had gout in the past. Denies diarrhea over the past several days and reports he has been taking calcium and magnesium supplements. No nausea or vomiting, overall eating well. Denied urinary complaints. [facility] Medical History Acute encephalopathy Alcohol abuse, daily use Depression GERD (gastroesophageal reflux disease) HTN (hypertension) Perianal abscess Serotonin syndrome Serotonin syndrome Smoker Urinary retention due to benign prostatic hyperplasia Home Medications finasteride 5 mg tablet 5 mg PO DAILY #30 tabs 06/20/17 [Rx Last Taken 05/30/18] magnesium oxide 400 mg (241.3 mg magnesium) tablet 400 mg PO BIDCM SUPPLEMENT 06/29/17 [History Last Taken 05/30/18] tamsulosin 0.4 mg capsule 0.4 mg PO DAILY@1730 PROSTATE 06/29/17 [History Last Taken 05/30/18] vitamin B12 500 mcg-folic acid 400 mcg tablet 1 tab PO QDAY 01/04/18 [History Last Taken 05/30/18] amlodipine 10 mg tablet 10 mg PO DAILY #30 tabs 11/13/22 [Rx Last Taken Unknown] pantoprazole 40 mg tablet,delayed release 40 mg PO BID #60 tabs 11/13/22 [Rx Last Taken Unknown] sucralfate 1 gram tablet 1 g PO Q6H #120 tabs 11/13/22 [Rx Last Taken Unknown] allopurinol 300 mg tablet 300 ea PO DAILY 11/17/22 [History Last Taken Unknown] Allergy/AdvReac Type Severity Reaction Status Date / Time Penicillins Allergy Unknown Verified 11/17/22 14:40 fluoxetine [From Prozac] AdvReac Other Verified 11/17/22 14:40 Family History Sister Diabetes Heart disease Mother CAD (coronary artery disease) Surgical History S/P right knee arthroscopy S/P tonsillectomy Social History Smoking Status: Current every day smoker tobacco type: cigarettes alcohol intake: current alcohol intake frequency: holidays/special occasions only ROS ROS Narrative General: Denies fever/chills HENT: Denies headache, denies stuffy nose, denies sore throat EYES: Feels like everything is seemed [facility] Resp: Denies cough, denies shortness of breath Cardiac: Denies chest pain GI: Denies significant abdominal pain, denies changes in bowel, denies nausea/vomiting : Denies changes in urination Extremity: Denies swelling MSK: Denies weakness Neuro: Has some numbness and tingling in fingers and toes Heme: Denies any bleeding or bruising Skin: Denies rashes Psychiatric: No complaints voiced Vital Signs Vital Signs Vital Signs: 11/17/22 14:39 11/17/22 15:06 Temperature 98.4 F Temperature Source Temporal Pulse Rate 104 H Respiratory Rate 18 Respiratory Effort Normal Non-Labored Respiratory Pattern Normal Blood Pressure 116/83 H Blood Pressure Mean 94 Pulse Ox 98 Oxygen Delivery Method Room Air Weight Weight: 93.894 kg Body Mass Index (BMI) 30.5 Physical Exam Narrative General: Alert, oriented, no apparent distress HEENT: Atraumatic, normocephalic, Chvostek sign positive Eyes: Anicteric, normal conjunctiva, extraocular movements grossly intact, no nystagmus on far lateral gaze Neck: Supple Respiratory: Clear to auscultation bilaterally, normal respiratory effort Cardiovascular: Regular rate and rhythm GI: Soft, nontender, nondistended Extremities: No edema Musculoskeletal: Moving all extremities Neuro: No overt focal neurological deficits, had clonus on ED exam however givenpain in his feet and ankles this was deferred Skin: No rashes appreciated Psych: Cooperative Results Lab / Micro Data Labs: Laboratory Results - last 24 hr 11/17/22 15:22: Magnesium 0.3 L* Assessment & Plan Assessment/Plan (1) Hypocalcemia syndrome: (2) Hypomagnesemia: PLAN: Plan #Hypocalcemia and hypomagnesemia -Symptomatic with tingling in hands and feet, Chvostek sign positive -Ca 6.1 despite being 7.4 several days ago (still low when corrected for alb) and magnesium 0.3mg -Pt reports taking his Ca and Mg supplements and that he has not been drinking, also denies any diarrhea in multiple days -Given his severity of renal injury with creatinine returning to normal could bepost kidney injury diuresis causing magnesium wasting leading PTH resistance or deficiency, no s/s of pancreatitis and lipase not elevated -I's and O's, daily weights -Received 4 g of calcium and 4 g of magnesium in ED -Will start fluids -Slightly elevated white blood cell count however no signs or symptoms of infection, monitor closely -Will monitor on tele, EKG 92 HR, NSR -Trend BMP and mg -Check phos, vitamin d, pth -Urine Ca magnesium and urine creatinine -Suspect kidney as source of current electrolyte abnormalities, if unable to correct may need to consider discontinuing PPI though do not feel that would cause this profound change in this short period of time #History of upper GI bleed -During his last admission earlier this month had EGD that showed erosive esophagitis and oozing gastric ulcers with visible vessel -Is on PPI 40 mg twice daily and sucralfate -Hemoglobin stable #Tobacco use -Nicotine patch -Advised cessation #hx gout -Reports hx #Hx of alcohol use disorder- in remission -Continue to encourage cessation #DVT ppx: SCDs given recent GI bleed Justa Davidson MD Time spent in the patient's overall evaluation,decision-making process, review of diagnostic data, adjustment of management, discussion with other providers, nursing nursing and ancillary staff involved in patient's care documentation, 60minutes Charges/Coding Visit Charges Inpatient E&M: 70370 Init Hosp L2 11/17/22 1745 <Electronically signed by Justa Davidson MD> Cosigner Signature (if applicable): CC: Dr. Zia Osman MD; Dr. Justa Davidson MD~ Signed [facility] Work Phone: 1(315) 535-702104-11-[address] Hector [facility] November 17, 2022 4:34pm Note Date/Time November 17, 2022 3:[address] [facility] Medical Records Department [address] [place] [address] Emergency Department Summary 11/17/22 MR#: [id number] Acct: [id number] Name: HANSEL LOVE PAULA Bray Rep #:[id number] : 1970 52 From: Sina RANDHAWA PCP: Dr. Zia Osman MD Status:RE G ER Location: ED HPI <SYDNEE Mejia - Last Filed: 11/17/22 16:32> History of Present Illness Chief Complaint: Abn Labs Narrative Narrative: Patient is a 52-year-old male with history of alcohol abuse, hypertension, GERD,depression who presents to the emergency department for hypokalemia.Patient was recently admitted to the hospital for 1 week for sepsis. He is no longer on antibiotics. He had multiple areas of his stomach cauterized by Dr. Briscoe secondary to upper GI bleed. Patient has been out for the last 4 days, he has not drank alcohol. He is still smoking cigarettes. He states he feels generalized weak worse in his legs. Patient's laboratory values show a leukocytosis with a blood count of 13.2, this is slightly elevated from November. Patient's calcium was 7.6 on November 13, it is now 6.1 which is critical lowwhich was drawn today on November 17. Patient was told to come into the emergency department today for evaluation. He denies any other injury. [facility] <SYDNEE Mejia - Last Filed: 11/17/22 16:32> [facility] Medical History Acute encephalopathy Alcohol abuse, daily use Depression GERD (gastroesophageal reflux disease) HTN (hypertension) Perianal abscess Serotonin syndrome Serotonin syndrome Smoker Urinary retention due to benign prostatic hyperplasia Home Medications finasteride 5 mg tablet 5 mg PO DAILY #30 tabs 06/20/17 [Rx Last Taken 05/30/18] magnesium oxide 400 mg (241.3 mg magnesium) tablet 400 mg PO BIDCM SUPPLEMENT 06/29/17 [History Last Taken 05/30/18] tamsulosin 0.4 mg capsule 0.4 mg PO DAILY@1730 PROSTATE 06/29/17 [History Last Taken 05/30/18] vitamin B12 500 mcg-folic acid 400 mcg tablet 1 tab PO QDAY 01/04/18 [History Last Taken 05/30/18] amlodipine 10 mg tablet 10 mg PO DAILY #30 tabs 11/13/22 [Rx Last Taken Unknown] pantoprazole 40 mg tablet,delayed release 40 mg PO BID #60 tabs 11/13/22 [Rx Last Taken Unknown] sucralfate 1 gram tablet 1 g PO Q6H #120 tabs 11/13/22 [Rx Last Taken Unknown] allopurinol 300 mg tablet 300 ea PO DAILY 11/17/22 [History Last Taken Unknown] Allergy/AdvReac Type Severity Reaction Status Date / Time Penicillins Allergy Unknown Verified 11/17/22 14:40 fluoxetine [From Prozac] AdvReac Other Verified 11/17/22 14:40 Family History Sister Diabetes Heart disease Mother CAD (coronary artery disease) Surgical History S/P right knee arthroscopy S/P tonsillectomy Social History Smoking Status: Current every day smoker tobacco type: cigarettes alcohol intake: current alcohol intake frequency: holidays/special occasions only ROS <SYDNEE Mejia - Last Filed: 11/17/22 16:32> ROS ED ROS Narrative Constitutional: Negative for fever, chills, weight loss. Positive generalized weakness Eyes: Negative for vision loss, vision change, double vision ENT: Negative for any sore throat, ear pain, congestion Cardiovascular: Negative for any chest pain, tightness, palpitations Respiratory: Negative for any cough, sputum production, hemoptysis, dyspnea, dyspnea on exertion, orthopnea Gastrointestinal: Negative for any abdominal pain, nausea, vomiting, diarrhea, constipation, blood in stool, blood in vomit : Negative for any urinary frequency, dysuria, retention, blood in urine Muscle skeletal: Negative for any muscle joint pain, stiffness, myalgias, arthralgias, neck pain, back pain. Positive for lower extremity achiness, pain Neurological: Negative for any headache, syncope, numbness or tingling, dizziness Skin: Negative for any rashes, lumps, itching, abrasions, lacerations Psychiatric: Negative for any depression, anxiety, stress, suicidal ideation, homicidal ideation Hematologic: Negative for any easy bruising, excessive bruising, easy bleeding Allergies: Negative for any eczema, hives, rash EXAM <SYDNEE Mejia - Last Filed: 11/17/22 16:32> Physical Exam Narrative Exam Narrative: Vital signs reviewed. HEET: Head normocephalic atraumatic, TMs clear bilaterally. Posterior pharynx is clear, moist mucous membranes. Nares clear bilaterally. Neck: Supple with no lymphadenopathy or tenderness. No signs of meningismus, negative jolt sign. Cardiac: Regular rate and rhythm no murmurs gallops or rubs, equal peripheral pulses bilaterally. Respiratory: Lungs clear to auscultation bilaterally. No chest tenderness. Abdomen: Soft, nontender, nondistended. No abdominal bruit or pulsatile masses. No hepatosplenomegaly Extremities: No peripheral edema, no signs of gross trauma or deformity. Activefull range of motion of all extremities. Neuro: Cranial nerves II through XII intact, no focal neurological deficits. Negative Trousseau sign, positive chvostek sign. Patient is showing signs of hypocalcemia Skin: Clean dry and intact with no rash, purpura, petechiae, vesicles or pustules. Backs/flank: No CVA tenderness, no midline spinal tenderness, no deformity. Psych: Normal mood and affect. No SI, HI or acute psychosis. Const Vital Signs: 11/17/22 14:39 11/17/22 15:06 Temperature 98.4 F Temperature Source Temporal Pulse Rate 104 H Respiratory Rate 18 Respiratory Effort Normal Non-Labored Respiratory Pattern Normal Blood Pressure 116/83 H Blood Pressure Mean 94 Pulse Ox 98 Oxygen Delivery Method Room Air Positive well nourished and well developed General Appearance ED: well developed <Dr. Will Hector MD - Last Filed: 11/17/22 16:34> Physical Exam Const Vital Signs: 11/17/22 14:39 11/17/22 15:06 Temperature 98.4 F Temperature Source Temporal Pulse Rate 104 H Respiratory Rate 18 Respiratory Effort Normal Non-Labored Respiratory Pattern Normal Blood Pressure 116/83 H Blood Pressure Mean 94 Pulse Ox 98 Oxygen Delivery Method Room Air MDM <SYDNEE Mejia - Last Filed: 11/17/22 16:32> [facility] Lab Data Labs: Laboratory Results - last 24 hr 11/17/22 15:22 Magnesium 0.3 L* EKG Initial EKG: Comments: EKG showed a normal sinus rhythm, IL interval 140 ms, QRS duration 94 ms Treatment and Re-Evaluation :: Patient appears to be in no distress, vital signs are stable. Patient appears to be nontoxic. Patient is brought into the emergency department for hypocalcemia with a calcium of 6.1. Secondary to the patient being symptomatic secondary to hypocalcemia, patient was given 4 g of calcium gluconate, a magnesium level will also be checked. Patient also had critical low magnesium at0.3. Patient will also receive parenteral IV magnesium. Secondary to patient being symptomatic with these electrolyte changes, the patient will be admitted to the hospital. Patient be admitted to Dr. Davidson's service. Patient's vital signs remained stable. Patient is a nontoxic. Patient is stable for admission. <Dr. Will Hector MD - Last Filed: 11/17/22 16:34> [facility] Narrative Medical decision making narrative: I have personally performed a face to face assessment of the patient and have reviewed the CONCEPCION Note. I performed a substantive portion of the visit including all aspects of the following. My morocho findings include: History is remarkable for low calcium. Patient was sent to ER by Dr. Briscoe's nurse practitioner. Patient denies history of pancreatitis. Patient not had a recent blood transfusion. He does not have history of thyroid or parathyroid disease. He is an alcoholic. He was recently treated for upper GI bleed. Patient does complain of abdominal pain, which he contributes to the recent EGD. This may be due to his hypocalcemia. Patient does complain of twitchy sensation. He denies perioral numbness. He does complain of pain in his feet due to acute gouty arthritis attack. He denies history of malignancy. Exam is patient appears older than reported age. He is not well-groomed. HEENTexam is remarkable for positive Chvostek sign. He does have poor dentition. Neck is supple. Trachea is midline. He has no carotid bruits. Heart is rapid and regular. There is no murmur, gallop or rub. Lungs are clear to auscultation. Abdomen is slightly distended tympanitic with diffuse pain. Doesnot have pain specifically in the right or left upper quadrant. Patient's reflexes are brisk. He does not have pathologic spread. He does have clonus atthe ankles bilaterally. Did not assess for Trousseau sign. Medical Decision Making calcium is 6.1 and 6.9 when corrected for albumin of 3.0. Since patient is symptomatic we will treat with IV calcium gluconate. Will assess magnesium since there is a correlation with hypomagnesemia and hypocalcium. There is no concern for acute pancreatitis. Other additions or changes: IV calcium and IV magnesium as ordered. Case was discussed with hospitalist for admission. Lab Data Labs: Laboratory Results - last 24 hr 11/17/22 15:22 Magnesium 0.3 L* EKG Initial EKG: Attestation: I personally reviewed and interpreted this EKG as follows: Interpretation: Sinus Rhythm (Rate is 92. IL interval 140 ms. Cures duration 84 ms. QT duration 374 ms. Wiley is normal. There is artifact noted. There is no ischemic abnormality noted) <Dr. Will Hector MD - Last Filed: 11/17/22 16:34> Critical Care Time Critical Care Time: Yes Critical care time (excluding procedures): 30-74 minutes (31), Including time spent: (History, physical, documentation, interpretation laboratory results initiation of therapy), Discussing w/Patient &/or Family/[employer] (Patient, daughter and significant other), Discussing w/Consultants and Arranging Admission or Transfer Discharge Plan Dx/Rx/DC Orders Clinical Impression: Hypocalcemia syndrome, Hypomagnesemia, Anemia, Sinus tachycardia seen on quality assurance monitor chassis Disposition Disposition: Acute Care Hospital [facility] What to do if you have Problems For any increased pain, shortness of breath, bleeding, nausea or vomiting, chestpain, or any unexpected problems, contact your Primary Care Provider. Call [facility] ([phone]) or report to the closest Emergency Room. Call 911 if necessary. 11/17/22 1633 <Electronically signed by Sina RANDHAWA> Cosigner Signature (if applicable): 11/17/22 1634 <Electronically signed by Jayce ANSARI> CC: Dr. Zia Osman MD ~ Signed [facility] Work Phone: 1(153) 866-662304-07-[address] Brown [facility] November 13, 2022 2:08pm Note Date/Time November 13, 2022 2:[address] [facility] Medical Records Department [address] [place] [address] Progress Note - Nephrology 11/13/22 1407 MR#: [id number] Acct: [id number] Name: VERAHANSEL PAULA Bray Rep #:[id number] : 1970 52 From: Rickey carter MD PCP: Dr. Zia Osman MD Status:AD M IN Location: ICU ICU05-1 Subjective Subjective on new complaints Objective Data Objective Data Vital Signs: Vital Signs Temp Pulse Resp BP Pulse Ox O2 Del Method O2 Flow Rate 97.3 F L 86 19 H 125/79 H 97 Room Air 2 11/13/22 08:05 11/13/22 08:05 11/13/22 08:05 11/13/22 08:05 11/13/22 08:05 11/13/22 08:05 11/09/22 22:00 Oxygen Flow Rate (L/min) 2 Oxygen Delivery Method Room Air Weight: 84.3 kg Body Mass Index (BMI) 27.5 Intake & Output: Intake and Output for Last 24 Hours 11/11/22 11/12/22 11/13/22 23:59 23:59 23:59 Intake Total 5246.79 / 5246.79 2974.17 / 2974.17 450 / 450 Output Total 2775 / 3675 1500 / 1500 1550 / 1550 Balance 2471.79 / 1571.79 1474.17 / 1474.17 -1100 / -1100 Lab / Micro Data Result Diagrams: 11/13/22 05:30 11/13/22 05:30 Labs: Laboratory Results - last 24 hr 11/13/22 05:30: WBC 11.0, RBC 3.12 L, Hgb 10.2 L, Hct 31.8 L, MCV 101.9 H, MCH 32.7 H, MCHC 32.1 D, RDW Std Deviation 48.5 H, RDW Coeff of Oleksandr 13.1, Plt Rlcti037 H, MPV 9.1, Immature Gran % (Auto) 0.200, Neut % (Auto) 69.1, Lymph % (Auto)19.8, Morton % (Auto) 7.1, Eos % (Auto) 3.2, Baso % (Auto) 0.6, Absolute Neuts (auto) 7.6, Absolute Lymphs (auto) 2.18, Nucleated RBC % 0 11/13/22 05:30: Sodium 143, Potassium 3.5, Chloride 112 H, Carbon Dioxide 22.0, Anion Gap 9, BUN 31 H, Creatinine 1.63 H, Estim Creat Clear Calc 52.41, Est GFR (MDRD) Af Amer 57 L, Est GFR (MDRD) Non-Af 47 L, BUN/Creatinine Ratio 19.0, Glucose 92, Calcium 7.6 L 11/13/22 05:30: ESR 33 H 11/13/22 05:30: C-React Prot Ext Range 17.90 H 11/13/22 08:55: Stool Neutral Fats Cancelled, Stool Total Fats Cancelled, Stool Calprotectin Cancelled Micro: Microbiology 11/13/22 08:55 Stool C. difficile DNA Amplification - Final 11/13/22 08:55 Stool Stool Lactoferrin - Final 11/13/22 08:55 Stool Enteric Bacteriology - Final 11/09/22 03:00 Urine, Catheterized Urine Culture - Final Culture exhibits no growth. 11/09/22 08:45 Stool Enteric Bacteriology - Final 11/09/22 06:30 Stool Stool Lactoferrin - Final 11/09/22 02:31 Nasal Secretion SARS-CoV-2 & FLU Antigen (Rapid) - Final Rhythm Strip Rhythm Strip: Sinus Tach Rate: 114 Ectopy: None Physical Exam Narrative Alert awake oriented x 3, no obvious distress no JVD s1s2 no murmurs lungs clear anteriorly and posteriorly. Patient on room air abdomen soft no edema Assessment & Plan Assessment/Plan (1) Acute kidney failure: PLAN: - BLUE secondary to ATN from hypotension, intravascular volume depletion with concurrent lisinopril/hydrochlorothiazide and NSAID use. Baseline creatinine is normal. Renal ultrasound without any hydronephrosis. Urinalysis is not impressive. SCr 10.9 on admission down to 1.4 today. Electrolytes are acceptable. Good urine output. Blood pressure is okay. (2) Acute encephalopathy: (3) Hypokalemia: (4) Alcohol abuse, daily use: PLAN: Plan 11/13/22 1408 <Electronically signed by Rickey Brown MD> Cosigner Signature (if applicable): CC: ~ Signed [facility] Work Phone: 1(333) [phone] Progress note Author Gino Friend [facility] November 13, 2022 4:21pm Note Date/Time November 13, 2022 4:[address] [facility] Medical Records Department [address] [place] [address] Progress Note 11/13/22 1000 MR#: [id number] Acct: [id number] Name: LOVEHANSEL PAULA Bray Rep #:[id number] : 1970 52 From: Gino Briscoe DO PCP: Dr. Zia Osman MD Status:AD M IN Location: ICU ICU05-1 Subjective Subjective Patient is doing well states that he wants to go home. He is tolerating a diet. His kidney function has improved drastically. He is urinating. He still having some loose stools but that is also improved. Objective Data Objective Data Vital Signs: Vital Signs Temp Pulse Resp BP Pulse Ox O2 Del Method O2 Flow Rate 97.3 F L 86 19 H 125/79 H 97 Room Air 2 11/13/22 08:05 11/13/22 08:05 11/13/22 08:05 11/13/22 08:05 11/13/22 08:05 11/13/22 08:05 11/09/22 22:00 Oxygen Flow Rate (L/min) 2 Oxygen Delivery Method Room Air Weight: 185 lb 13.595 oz Body Mass Index (BMI) 27.5 Intake & Output: Intake and Output for Last 24 Hours 11/11/22 11/12/22 11/13/22 23:59 23:59 23:59 Intake Total 5246.79 / 5246.79 2974.17 / 2974.17 450 / 450 Output Total 2775 / 3675 1500 / 1500 1550 / 1550 Balance 2471.79 / 1571.79 1474.17 / 1474.17 -1100 / -1100 Lab / Micro Data Result Diagrams: 11/13/22 05:30 11/13/22 05:30 Labs: Laboratory Results - last 24 hr 11/13/22 05:30: WBC 11.0, RBC 3.12 L, Hgb 10.2 L, Hct 31.8 L, MCV 101.9 H, MCH 32.7 H, MCHC 32.1 D, RDW Std Deviation 48.5 H, RDW Coeff of Oleksandr 13.1, Plt [id number] H, MPV 9.1, Immature Gran % (Auto) 0.200, Neut % (Auto) 69.1, Lymph % (Auto)19.8, Morton % (Auto) 7.1, Eos % (Auto) 3.2, Baso % (Auto) 0.6, Absolute Neuts (auto) 7.6, Absolute Lymphs (auto) 2.18, Nucleated RBC % 0 11/13/22 05:30: Sodium 143, Potassium 3.5, Chloride 112 H, Carbon Dioxide 22.0, Anion Gap 9, BUN 31 H, Creatinine 1.63 H, Estim Creat Clear Calc 52.41, Est GFR (MDRD) Af Amer 57 L, Est GFR (MDRD) Non-Af 47 L, BUN/Creatinine Ratio 19.0, Glucose 92, Calcium 7.6 L 11/13/22 05:30: ESR 33 H 11/13/22 05:30: C-React Prot Ext Range 17.90 H 11/13/22 08:55: Stool Neutral Fats Cancelled, Stool Total Fats Cancelled, Stool Calprotectin Cancelled Micro: Microbiology 11/13/22 08:55 Stool C. difficile DNA Amplification - Final 11/13/22 08:55 Stool Stool Lactoferrin - Final 11/13/22 08:55 Stool Enteric Bacteriology - Final 11/09/22 03:00 Urine, Catheterized Urine Culture - Final Culture exhibits no growth. 11/09/22 08:45 Stool Enteric Bacteriology - Final 11/09/22 06:30 Stool Stool Lactoferrin - Final 11/09/22 02:31 Nasal Secretion SARS-CoV-2 & FLU Antigen (Rapid) - Final Rhythm Strip Rhythm Strip: Sinus Tach Rate: 114 Ectopy: None Physical Exam Narrative Alert awake oriented x 3, no obvious distress no JVD s1s2 no murmurs lungs clear anteriorly and posteriorly. Patient on room air abdomen soft no edema Assessment & Plan Assessment/Plan (1) Upper GI bleed: PLAN: Upper GI bleed secondary to peptic ulcer disease status posttreatment endoscopically. His hemoglobin seems to be stable. He has been on Protonix drip. This can be switched to IV every 12 hours. He will also need to be on Carafate 1 g p.o. 3 times daily for 4 weeks. He can be transitioned when he leaves the hospital to Protonix 40 mg p.o. twice daily. Continue to monitor H&H. (2) Crohn's disease: PLAN: I will order [facility] IBD SGI antibody analysis for inflammatory bowel disease specifically ulcerative colitis and Crohn's disease. I will also check an ESR, CRP, QuantiFERON gold, acute hepatitis panel, stool for fecal calprotectin, enteric pathogens, stool for lactoferrin, stool for pancreatic elastase, antibodies for celiac disease as all of these can present like inflammatory bowel disease and if he needs treatment for Crohn's disease we would like to make sure he has no infectious diarrhea at this time. (3) Elevated liver enzymes: PLAN: Elevated liver enzymes likely secondary to alcoholic hepatitis with low Madrey score. However we will check for autoimmune disease and chronic viral disease affecting possibly affecting the liver Charges/Coding Visit Charges Inpatient E&M: 68244 Subs Hosp L3 11/13/22 1621 <Electronically signed by Gino Briscoe DO> Gino Briscoe DO Cosigner Signature (if applicable): CC: ~ Signed [facility] Work Phone: [phone]) [phone] Progress note Author Gino Briscoe [facility] November 13, 2022 7:47am Note Date/Time November 13, 2022 7:47 am [facility] Medical Records Department [address] [place] [address] Progress Note 11/13/2240 MR#: [id number] Acct: [id number] Name: HANSEL LOVE JrCristhian Rep #:[id number] : 1970 52 From: Gino Briscoe DO PCP: Dr. Zia Osman MD Status:AD M IN Location: ICU ICU05-1 Subjective Subjective Patient states that he has been having diarrhea and he has a history of Crohn's disease. He says he has not been on medications for Crohn's disease. He does not know if he has a large or small bowel. He does not know if he has had any surgeries for Crohn's disease. He thinks that he is na?ve to anti-TNF medicinesbut has been treated with prednisone in the past. Objective Data Objective Data Vital Signs: Vital Signs Temp Pulse Resp BP Pulse Ox O2 Del Method O2 Flow Rate 98.2 F 75 15 124/81 H 98 Room Air 2 11/13/22 04:00 11/13/22 04:00 11/13/22 04:00 11/13/22 04:00 11/13/22 06:59 11/13/22 06:59 11/09/22 22:00 Oxygen Flow Rate (L/min) 2 Oxygen Delivery Method Room Air Weight: 185 lb 13.595 oz Body Mass Index (BMI) 27.5 Intake & Output: Intake and Output for Last 24 Hours 11/11/22 11/12/22 11/13/22 23:59 23:59 23:59 Intake Total 5246.79 / 5246.79 2974.17 / 2974.17 450 / 450 Output Total 2775 / 3675 1500 / 1500 950 / 950 Balance 2471.79 / 1571.79 1474.17 / 1474.17 -500 / -500 Lab / Micro Data Result Diagrams: 11/13/22 05:30 11/13/22 05:30 Labs: Laboratory Results - last 24 hr 11/12/22 03:15: Sodium 140, Potassium 3.1 L, Chloride 111 H, Carbon Dioxide 19.0L, BUN 48 H, Creatinine 4.00 H, Estim Creat Clear Calc 21.36, Est GFR (MDRD) Af Amer 21 L, Est GFR (MDRD) Non-Af 17 L, BUN/Creatinine Ratio 12.0, Glucose 122 H,Calcium 7.5 L, Phosphorus 2.6, Magnesium 1.6, Albumin 2.5 L 11/13/22 05:30: WBC 11.0, RBC 3.12 L, Hgb 10.2 L, Hct 31.8 L, MCV 101.9 H, MCH 32.7 H, MCHC 32.1 D, RDW Std Deviation 48.5 H, RDW Coeff of Oleksandr 13.1, Plt [id number] H, MPV 9.1, Immature Gran % (Auto) 0.200, Neut % (Auto) 69.1, Lymph % (Auto)19.8, Morton % (Auto) 7.1, Eos % (Auto) 3.2, Baso % (Auto) 0.6, Absolute Neuts (auto) 7.6, Absolute Lymphs (auto) 2.18, Nucleated RBC % 0 11/13/22 05:30: Sodium 143, Potassium 3.5, Chloride 112 H, Carbon Dioxide 22.0, Anion Gap 9, BUN 31 H, Creatinine 1.63 H, Estim Creat Clear Calc 52.41, Est GFR (MDRD) Af Amer 57 L, Est GFR (MDRD) Non-Af 47 L, BUN/Creatinine Ratio 19.0, Glucose 92, Calcium 7.6 L Micro: Microbiology 11/09/22 03:00 Urine, Catheterized Urine Culture - Final Culture exhibits no growth. 11/09/22 08:45 Stool Enteric Bacteriology - Final 11/09/22 06:30 Stool Stool Lactoferrin - Final 11/09/22 02:31 Nasal Secretion SARS-CoV-2 & FLU Antigen (Rapid) - Final Rhythm Strip Rhythm Strip: Sinus Tach Rate: 114 Ectopy: None Physical Exam Const alert, oriented x3 and no apparent distress HEENT normocephalic, head/scalp atraumatic and moist oral mucous membranes Eyes PERRL and EOMs intact bilaterally Neck no lymphadenopathy, supple and no JVD Lymph Lymphatic: no lymphadenopathy noted and no lymphedema noted Resp normal respiratory effort and normal air movement Resp Narrative: mildly diminished breath sounds bibasally. No wheezes or crackles. On room air. Cardio regular rate, regular rhythm, S1 normal heart sound, S2 normal heart sound and no murmurs Cardio Narrative: tachypneic GI normal to inspection, nondistended, normoactive bowel sounds, soft to palpation,non-tender and non-distended Extremity normal capillary refill, no clubbing, cyanosis or edema and no calf tenderness General Extremity: no tenderness to palpation of joints or extremities Skin General Skin Exam: no breakdown Neuro CN's II-XII intact bilaterally, no focal motor deficits, no sensory deficits noted and deep tendon reflexes 2+ bilaterally Psych Psych Narrative: restless Appearance: appropriate Assessment & Plan Assessment/Plan (1) Upper GI bleed: PLAN: Upper GI bleed secondary to peptic ulcer disease status posttreatment endoscopically. His hemoglobin seems to be stable. He has been on Protonix drip. This can be switched to IV every 12 hours. He will also need to be on Carafate 1 g p.o. 3 times daily for 4 weeks. He can be transitioned when he leaves the hospital to Protonix 40 mg p.o. twice daily. Continue to monitor H&H. (2) Crohn's disease: PLAN: I will order [facility] IBD SGI antibody analysis for inflammatory bowel disease specifically ulcerative colitis and Crohn's disease. I will also check an ESR, CRP, QuantiFERON gold, acute hepatitis panel, stool for fecal calprotectin, enteric pathogens, stool for lactoferrin, stool for pancreatic elastase, antibodies for celiac disease as all of these can present like inflammatory bowel disease and if he needs treatment for Crohn's disease we would like to make sure he has no infectious diarrhea at this time. (3) Elevated liver enzymes: PLAN: Elevated liver enzymes likely secondary to alcoholic hepatitis with low Madrey score. However we will check for autoimmune disease and chronic viral disease affecting possibly affecting the liver Charges/Coding Visit Charges Inpatient E&M: 45197 Subs Hosp L3 11/13/22 0747 <Electronically signed by Gino Friend DO> Gino Friend DO Cosigner Signature (if applicable): CC: ~ Signed [facility] Work Phone: [phone]) [phone] Zacarias [facility] November 12, 2022 4:36pm Note Date/Time November 12, 2022 12:[address] [facility] Medical Records Department [address] [place] [address] Progress Note 11/12/22 1214 MR#: [id number] Acct: [id number] Name: HANSEL LOVE Rep #:[id number] : 1970 52 From: Cally Zacarias MD PCP: Dr. Zia Osman MD Status:AD M IN Location: ICU ICU05-1 Subjective Subjective Patient seen and examined. He had no active complaints. He feels much better today. He had an uneventful night and review of systems is otherwise negative. He has remained hemodynamically stable. He is now on room air. Objective Data Objective Data Vital Signs: Vital Signs Temp Pulse Resp BP Pulse Ox O2 Del Method O2 Flow Rate 98 F 94 22 H 114/86 H 93 Room Air 2 11/11/22 22:00 11/11/22 22:00 11/11/22 22:00 11/11/22 22:00 11/12/22 07:52 11/12/22 07:52 11/09/22 22:00 Oxygen Flow Rate (L/min) 2 Oxygen Delivery Method Room Air Weight: 185 lb 13.595 oz Body Mass Index (BMI) 27.5 Intake & Output: Intake and Output for Last 24 Hours 11/10/22 11/11/22 11/12/22 23:59 23:59 23:59 Intake Total 5379.98 / 5379.98 5246.79 / 5246.79 1723.50 / 1723.50 Output Total 295 / 595 2775 / 3675 900 / 900 Balance 5084.98 / 4784.98 2471.79 / 1571.79 823.50 / 823.50 Lab / Micro Data Result Diagrams: 11/12/22 03:15 11/12/22 03:15 Labs: Laboratory Results - last 24 hr 11/12/22 03:15: Sodium 140, Potassium 3.1 L, Chloride 111 H, Carbon Dioxide 19.0L, BUN 48 H, Creatinine 4.00 H, Estim Creat Clear Calc 21.36, Est GFR (MDRD) Af Amer 21 L, Est GFR (MDRD) Non-Af 17 L, BUN/Creatinine Ratio 12.0, Glucose 122 H,Calcium 7.5 L, Phosphorus 2.6, Magnesium 1.6, Albumin 2.5 L 11/12/22 03:15: WBC 11.1 H, RBC 2.82 L, Hgb 9.5 L, Hct 27.5 L, MCV 97.5 H D, MCH33.7 H, MCHC 34.5 D, RDW Std Deviation 45.9 H, RDW Coeff of Oleksandr 12.8, Plt [id number], MPV 9.3, Immature Gran % (Auto) 0.300, Neut % (Auto) 72.4 H, Lymph % (Auto)14.6 L, Morton % (Auto) 8.5, Eos % (Auto) 3.4, Baso % (Auto) 0.8, Absolute Neuts (auto) 8.0 H, Absolute Lymphs (auto) 1.62, Nucleated RBC % 0 Micro: Microbiology 11/09/22 03:00 Urine, Catheterized Urine Culture - Final Culture exhibits no growth. 11/09/22 08:45 Stool Enteric Bacteriology - Final 11/09/22 06:30 Stool Stool Lactoferrin - Final 11/09/22 02:31 Nasal Secretion SARS-CoV-2 & FLU Antigen (Rapid) - Final Rhythm Strip Rhythm Strip: Sinus Tach Rate: 114 Ectopy: None Physical Exam Const alert, oriented x3 and no apparent distress HEENT normocephalic, head/scalp atraumatic and moist oral mucous membranes Eyes PERRL and EOMs intact bilaterally Neck no lymphadenopathy, supple and no JVD Lymph Lymphatic: no lymphadenopathy noted and no lymphedema noted Resp normal respiratory effort and normal air movement Resp Narrative: mildly diminished breath sounds bibasally. No wheezes or crackles. On room air. Cardio regular rate, regular rhythm, S1 normal heart sound, S2 normal heart sound and no murmurs Cardio Narrative: tachypneic GI normal to inspection, nondistended, normoactive bowel sounds, soft to palpation,non-tender and non-distended Extremity normal capillary refill, no clubbing, cyanosis or edema and no calf tenderness General Extremity: no tenderness to palpation of joints or extremities Skin General Skin Exam: no breakdown Neuro CN's II-XII intact bilaterally, no focal motor deficits, no sensory deficits noted and deep tendon reflexes 2+ bilaterally Psych Psych Narrative: restless Appearance: appropriate Assessment & Plan Assessment/Plan (1) Sepsis: (2) Hypokalemia: (3) Acute alteration in mental status: (4) Acute hypotension: (5) Seizure in response to acute event: PLAN: Plan #Septic shock * now off levophed * septic shock has resolved * critical care and ID on board * on IV zosyn * blood cultures pending; urine cultures show no growth * wbc trended down to 11.1 * #Seizure: * Thought to be due to alcohol withdrawal versus infection. * CT of the brain showed mucosal thickening of the right maxillary sinuses but did not show any other acute intracranial pathology. * EEG didnt show any evidence of seizure disorder * IV Ativan as needed #Hyponatremia: resolved. #BLUE: * Creatinine is trending down to 4 from 8.545 yesterday * nephrology on board. * renal USG was unremarkable * management as per nephrology * * #non Anion gap metabolic acidosis: * Likely due to lactic acid and uremia. * bicarg is up 50 19 today. * nephro on board * on oral bicarb. #UGI bleed * on IV PPI * EGD showed erosive esophagitis and oozing gastric ulcers with a visible vessel * keeps complaining of abdominal pain. concern for peptic ulcer disease * was admitted with bloody diarrhea. * CT o the abdomen showed thickening of the stomach. * on IV pantoprazole and octreotide * #Elevated liver enzymes * Liver enzymes only minimally elevated. Will monitor. #History of chronic alcohol use disorder * At risk of withdrawal. On CIWA protocol with Ativan. On thiamine and folic acid as well as multivitamin. #Hypomagnesemia and hypokalemia: will replace aggressively and trend. Hypertension: Hold BP meds on account of hypotension. #Thrombocytosis: resolved. platelets are down to 448. #DVT prophylaxis: SCDs. Total time spent on evaluation and management of patient, reviewing chart and specialist notes, discussing plan with patient, his daughter and friend discussion with nursing and ancillary staff as well as documentation: 42 mins Disposition: transfer to PCU today Charges/Coding Visit Charges Inpatient E&M: 91328 Subs Hosp L2 11/12/22 1636 <Electronically signed by Cally Zacarias MD> Cally Zacarias MD Cosigner Signature (if applicable): CC: ~ Signed [facility] Work Phone: [phone]) [phone] Brown [facility] November 12, 2022 3:33pm Note Date/Time November 12, 2022 10:[address] [facility] Medical Records Department [address] [place] [address] Progress Note - Nephrology 11/12/22 1025 MR#: [id number] Acct: [id number] Name: HANSEL LOVE JrCristhian Rep #:[id number] : 1970 52 From: Sarahi yeager DEVELOPMENT DISABILITY SPECIALIST-C PCP: Dr. Zia Osman MD Status:AD M IN Location: ICU ICU05-1 Subjective Subjective Sitting in chair. More alert and oriented today. Denies any complaints. No overnight events. Objective Data Objective Data Vital Signs: Vital Signs Temp Pulse Resp BP Pulse Ox O2 Del Method O2 Flow Rate 98 F 94 22 H 114/86 H 93 Room Air 2 11/11/22 22:00 11/11/22 22:00 11/11/22 22:00 11/11/22 22:00 11/12/22 07:52 11/12/22 07:52 11/09/22 22:00 Oxygen Flow Rate (L/min) 2 Oxygen Delivery Method Room Air Weight: 84.3 kg Body Mass Index (BMI) 27.5 Intake & Output: Intake and Output for Last 24 Hours 11/10/22 11/11/22 11/12/22 23:59 23:59 23:59 Intake Total 5379.98 / 5379.98 5246.79 / 5246.79 1671 / 1671 Output Total 295 / 595 2775 / 3675 900 / 900 Balance 5084.98 / 4784.98 2471.79 / 1571.79 771 / 771 Lab / Micro Data Result Diagrams: 11/12/22 03:15 11/12/22 03:15 Labs: Laboratory Results - last 24 hr 11/12/22 03:15: Sodium 140, Potassium 3.1 L, Chloride 111 H, Carbon Dioxide 19.0L, BUN 48 H, Creatinine 4.00 H, Estim Creat Clear Calc 21.36, Est GFR (MDRD) Af Amer 21 L, Est GFR (MDRD) Non-Af 17 L, BUN/Creatinine Ratio 12.0, Glucose 122 H,Calcium 7.5 L, Phosphorus 2.6, Magnesium 1.6, Albumin 2.5 L 11/12/22 03:15: WBC 11.1 H, RBC 2.82 L, Hgb 9.5 L, Hct 27.5 L, MCV 97.5 H D, MCH33.7 H, MCHC 34.5 D, RDW Std Deviation 45.9 H, RDW Coeff of Oleksandr 12.8, Plt [id number], MPV 9.3, Immature Gran % (Auto) 0.300, Neut % (Auto) 72.4 H, Lymph % (Auto)14.6 L, Morton % (Auto) 8.5, Eos % (Auto) 3.4, Baso % (Auto) 0.8, Absolute Neuts (auto) 8.0 H, Absolute Lymphs (auto) 1.62, Nucleated RBC % 0 Micro: Microbiology 11/09/22 03:00 Urine, Catheterized Urine Culture - Final Culture exhibits no growth. 11/09/22 08:45 Stool Enteric Bacteriology - Final 11/09/22 06:30 Stool Stool Lactoferrin - Final 11/09/22 02:31 Nasal Secretion SARS-CoV-2 & FLU Antigen (Rapid) - Final Rhythm Strip Rhythm Strip: Sinus Tach Rate: 114 Ectopy: None Physical Exam Narrative Alert awake oriented x 3, no obvious distress no JVD s1s2 no murmurs lungs clear anteriorly and posteriorly. Patient on room air abdomen soft no edema Assessment & Plan Assessment/Plan (1) Acute kidney failure: PLAN: - BLUE secondary to ATN from hypotension, intravascular volume depletion with concurrent lisinopril/hydrochlorothiazide and NSAID use. Baseline creatinine is normal. Renal ultrasound without any hydronephrosis. Urinalysis is not impressive. SCr 10.9 on admission and today is 4.00. Bicarb improved on bicarb drip. Continue IV fluids for another day. Potassium 3.1, replacement has been ordered and given. Urine output is picking up. At this time no acute indication for dialysis today. Overall renal function is improving. Maciel is out. - bps acceptable, off IV pressor - Getting magnesium replacement again today. Phosphorus is 2.6 - had EGD which showed oozing gastric ulcer and erosive esophagitis. On PPI and octreotide per GI. (2) Acute encephalopathy: (3) Hypokalemia: (4) Alcohol abuse, daily use: PLAN: Plan 11/12/22 1032 <Electronically signed by Sarahi RANDHAWA> Cosigner Signature (if applicable): 11/12/22 1229 <Electronically signed by Rickey Brown MD> CC: ~ Signed ADDENDUM by Dr. Rickey Brown MD on 11/12/22 at 1533 Addendum seen and examined independently. Cr is better. urine output is ok. Bp ok. bicarbbetter. dc bicarbonate IV. possible floor transfer. 11/12/22 1533<Electronically signed by Rickey Brown MD> Cosigner Signature (if applicable): 11/12/22 1229 <Electronically signed by Rickey Brown MD> cc: ~* Signed [facility] Work Phone: 1(365) [phone] Brown [facility] November 12, 2022 12:29pm Note Date/Time November 11, 2022 10:[address] [facility] Medical Records Department [address] [place] [id number] Progress Note - Nephrology 11/11/22 1000 MR#: [id number] Acct: [id number] Name: HANSEL LOVE Jr. Rep #:[id number] : 1970 52 From: Sarhai yeager NP-C PCP: Dr. Zia Osman MD Status:AD M IN Location: ICU ICU05-1 Subjective Subjective Patient is awake, alert, resting in bed. No overnight events. Objective Data Objective Data Vital Signs: Vital Signs Temp Pulse Resp BP Pulse Ox O2 Del Method O2 Flow Rate 97.7 F L 90 15 108/73 98 Room Air 2 11/11/22 09:00 11/11/22 09:00 11/11/22 09:00 11/11/22 09:00 11/11/22 09:00 11/11/22 09:00 11/09/22 22:00 Oxygen Flow Rate (L/min) 2 Oxygen Delivery Method Room Air Weight: 88.8 kg Body Mass Index (BMI) 28.9 Intake & Output: Intake and Output for Last 24 Hours 11/09/22 11/10/22 11/11/22 23:59 23:59 23:59 Intake Total 5682.3 / 5682.3 5379.98 / 5379.98 1562.25 / 1562.25 Output Total 70 / 70 295 / 595 950 / 950 Balance 5612.3 / 5612.3 5084.98 / 4784.98 612.25 / 612.25 Lab / Micro Data Result Diagrams: 11/11/22 05:22 11/11/22 05:22 Labs: Laboratory Results - last 24 hr 11/10/22 09:58: MRSA (PCR) Negative 11/11/22 05:22: WBC 13.8 H, RBC 2.97 L, Hgb 9.9 L, Hct 30.7 L, MCV 103.4 H, MCH 33.3 H, MCHC 32.2, RDW Std Deviation 50.5 H, RDW Coeff of Oleksandr 13.3, Plt Count 494 H, MPV 9.5, Immature Gran % (Auto) 0.400, Neut % (Auto) 72.8 H, Lymph % (Auto) 15.6 L, Morton % (Auto) 7.6, Eos % (Auto) 2.7, Baso % (Auto) 0.9, Absolute Neuts (auto) 10.0 H, Absolute Lymphs (auto) 2.14, Nucleated RBC % 0 11/11/22 05:22: Sodium 140, Potassium 3.8, Chloride 113 H, Carbon Dioxide 12.0 L, Anion Gap 15, BUN 64 H, Creatinine 8.45 H*, Estim Creat Clear Calc 10.11, Est GFR (MDRD) Af Amer 9 L, Est GFR (MDRD) Non-Af 7 L, BUN/Creatinine Ratio 7.6 L, Glucose 129 H, Calcium 7.1 L 11/11/22 05:22: Phosphorus 3.8, Magnesium 0.9 L* Micro: Microbiology 11/09/22 03:00 Urine, Catheterized Urine Culture - Final Culture exhibits no growth. 11/09/22 08:45 Stool Enteric Bacteriology - Final 11/09/22 06:30 Stool Stool Lactoferrin - Final 11/09/22 02:31 Nasal Secretion SARS-CoV-2 & FLU Antigen (Rapid) - Final Rhythm Strip Rhythm Strip: Sinus Tach Rate: 114 Ectopy: None Physical Exam Narrative Alert awake oriented x 3, no obvious distress no JVD s1s2 no murmurs lungs clear anteriorly and posteriorly. Patient on room air abdomen soft no edema maciel + Assessment & Plan Assessment/Plan (1) Acute kidney failure: PLAN: - BLUE secondary to ATN from hypotension, intravascular volume depletion. Baseline creatinine is normal. Renal ultrasound without any hydronephrosis. Urinalysis is not impressive. Today Bicarb is 12.0, potassium 3.8, continue IV fluids, but will stop LR and switch to D5 with 3amps of bicarb. SCr 10.9 on admission and today is 8.45. At this time no acute indication for dialysis today. 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 Patient is now on clear liquid diet. - bps acceptable, off IV pressor - replacing mag again today - had EGD which showed oozing gastric ulcer and erosive esophagitis. On PPI and octreotide per GI. (2) Acute encephalopathy: (3) Hypokalemia: (4) Alcohol abuse, daily use: PLAN: Plan 11/11/22 1012 <Electronically signed by Sarahi RANDHAWA> Cosigner Signature (if applicable): 11/12/22 1229 <Electronically signed by Rickey Brown MD> CC: ~ Signed [facility] Work Phone: 1(233) [phone] Alcazar [facility] November 12, 2022 8:47am Note Date/Time November 12, 2022 8:[address] [facility] Medical Records Department [address] [place] [address] Progress Note - Nurse Office 11/12/22 08 MR#: [id number] Acct: [id number] Name: HANSEL LOVE Jr. Rep #:[id number] : 1970 52 From: Timmy Alcazar DO PCP: Dr. Zia Osman MD Status:AD M IN Location: ICU ICU05-1 Assessment & Plan Assessment/Plan (1) Sepsis: PLAN: Plan RECOMMENDATIONS: 1. Continue supplemental IV fluids per nephrology recommendations. 2. Aggressive electrolyte repletion, as ordered. 3. Continue empiric antimicrobials. 4. CIWA protocol with thiamine and folate. 5. Seizure precautions with as needed Ativan. 6. Octreotide and PPI infusions per GI recommendations. 7. Encourage incentive spirometer use and mobilize patient as tolerated. 8. We will sign off from a pulmonary/critical care perspective. Please call with any additional questions. IMPRESSIONS: 1. Sepsis The patient presented to the hospital with sepsis due to probable GI source of infection with acute sepsis related organ dysfunction as evidenced by encephalopathy, acute kidney injury and lactic acidemia. The patient did receive supplemental IV fluid hydration and was transiently on vasopressor support. The patient, at the present time, is hemodynamically stable. Plan to continue IV fluids per nephrology recommendations. 2. Erosive esophagitis/bleeding gastric ulcer status post intervention Continue PPI therapy and octreotide per GI recommendations. Continue to monitorH&H daily. Transfuse if hemoglobin drops below 7 g/dL. 3. Acute kidney injury Improving. Most likely prerenal in etiology in the setting of #1 coupled with intravascular volume depletion. The patient has received supplemental IV fluids, which will be continued as tolerated. Renal ultrasound was unremarkable. Plan to continue to monitor urine output for now. No current indication for renal replacement therapy. Nephrology is following to assist with medical management. 4. History of alcohol dependency/BPH/hypertension/GERD Complicates care, management, recovery and prognosis. Continue CIWA protocol with thiamine and folate repletion. Monitor for signs of alcohol withdrawal. This note was generated with [employer] dictation software. It may contain incorrectwords, spelling, and punctuation that were not noted in checking the note beforesigning. Subjective Subjective The patient was seen and examined at the bedside this morning. Events from the last 24 hours have been reviewed. The patient is currently afebrile, hemodynamically stable and maintaining appropriate oxygen saturations on room air. Hemoglobin remains stable at 9.5 g/dL. Potassium is low at 3.1 with a magnesium 1.6. Creatinine was noted to be 4.0. Objective Data Objective Data The patient's most recent lab work, culture data and imaging studies have all been personally reviewed. Enteric pathogen panel was negative. Blood cultures have not demonstrated any growth to date. Vital Signs: Vital Signs Temp Pulse Resp BP Pulse Ox O2 Del Method O2 Flow Rate 98 F 94 22 H 114/86 H 97 Room Air 2 11/11/22 22:00 11/11/22 22:00 11/11/22 22:00 11/11/22 22:00 11/11/22 22:00 11/11/22 22:00 11/09/22 22:00 Oxygen Flow Rate (L/min) 2 Oxygen Delivery Method Room Air Weight: 185 lb 13.595 oz Body Mass Index (BMI) 27.5 Intake & Output: Intake and Output for Last 24 Hours 11/10/22 11/11/22 11/12/22 23:59 23:59 23:59 Intake Total 5379.98 / 5379.98 5246.79 / 5246.79 170 / 170 Output Total 295 / 595 2775 / 3675 900 / 900 Balance 5084.98 / 4784.98 2471.79 / 1571.79 -730 / -730 Lab / Micro Data Attestation: I reviewed the patient's lab results. Result Diagrams: 11/12/22 03:15 11/12/22 03:15 Labs: Laboratory Results - last 24 hr 11/11/22 05:22: Sodium 140, Potassium 3.8, Chloride 113 H, Carbon Dioxide 12.0 L, Anion Gap 15, BUN 64 H, Creatinine 8.45 H*, Estim Creat Clear Calc 10.11, Est GFR (MDRD) Af Amer 9 L, Est GFR (MDRD) Non-Af 7 L, BUN/Creatinine Ratio 7.6 L, Glucose 129 H, Calcium 7.1 L 11/12/22 03:15: WBC 11.1 H, RBC 2.82 L, Hgb 9.5 L, Hct 27.5 L, MCV 97.5 H D, MCH33.7 H, MCHC 34.5 D, RDW Std Deviation 45.9 H, RDW Coeff of Oleksandr 12.8, Plt [id number], MPV 9.3, Immature Gran % (Auto) 0.300, Neut % (Auto) 72.4 H, Lymph % (Auto)14.6 L, Morton % (Auto) 8.5, Eos % (Auto) 3.4, Baso % (Auto) 0.8, Absolute Neuts (auto) 8.0 H, Absolute Lymphs (auto) 1.62, Nucleated RBC % 0 Micro: Microbiology 11/09/22 03:00 Urine, Catheterized Urine Culture - Final Culture exhibits no growth. 11/09/22 08:45 Stool Enteric Bacteriology - Final 11/09/22 06:30 Stool Stool Lactoferrin - Final 11/09/22 02:31 Nasal Secretion SARS-CoV-2 & FLU Antigen (Rapid) - Final Radiography Diagnostic Testing: Radiology Impression Renal Ultrasound 11/09/22 07:00 IMPRESSION: Normal ultrasound of the kidneys. A Maciel catheter is seen within an empty urinary bladder. Electronically Signed: Anmol Muhammad MD at 10:49 EDT , Rhythm Strip Rhythm Strip: Sinus Tach Rate: 114 Ectopy: None Physical Exam Const alert and no apparent distress General Appearance: cooperative HEENT normocephalic and head/scalp atraumatic Eyes PERRL, EOMs intact bilaterally and conjunctivae normal Neck supple General: trachea midline Chest inspection of chest normal Resp normal respiratory effort Auscultation: Negative for rales, rhonchi or wheezes Cardio regular rate, regular rhythm, S1 normal heart sound and S2 normal heart sound GI normal to inspection, nondistended, normoactive bowel sounds Extremity no clubbing, cyanosis or edema Skin no rashes or lesions noted Neuro CN's II-XII intact bilaterally and no focal motor deficits Psych cooperative and affect normal Activity / Motor Behavior: restless Charges/Coding Visit Charges Inpatient E&M: 96094 Subs Hosp L2 11/12/22 0847 <Electronically signed by Timmy Alcazar DO> Cosigner Signature (if applicable): CC: ~ Signed [facility] Work Phone: [phone]) 433-844404-05-2023 Progress note Author Ginoiram Briscoe [facility] November 11, 2022 4:46pm Note Date/Time November 11, 2022 4:46 pm [facility] Medical Records Department [address] [place] [address] Progress Note 11/11/22 1642 MR#: [id number] Acct: [id number] Name: HANSEL LOVE Jr. Rep #:[id number] : 1970 52 From: Gino Briscoe DO PCP: Dr. Zia Osman MD Status:AD M IN Location: ICU ICU05-1 Subjective Subjective Patient underwent an upper endoscopy yesterday for an upper GI bleed. He was discovered to have multiple ulcers in his stomach that were treated endoscopically. He is not have any abdominal pain. He is tolerating a diet. He denies any nausea. Objective Data Objective Data Vital Signs: Vital Signs Temp Pulse Resp BP Pulse Ox O2 Del Method O2 Flow Rate 97.7 F L 90 19 H 114/82 H 96 Room Air 2 11/11/22 16:00 11/11/22 16:00 11/11/22 16:00 11/11/22 16:00 11/11/22 16:00 11/11/22 16:00 11/09/22 22:00 Oxygen Flow Rate (L/min) 2 Oxygen Delivery Method Room Air Weight: 195 lb 12.328 oz Body Mass Index (BMI) 28.9 Intake & Output: Intake and Output for Last 24 Hours 11/09/22 11/10/22 11/11/22 23:59 23:59 23:59 Intake Total 5682.3 / 5682.3 5379.98 / 5379.98 2782.79 / 2782.79 Output Total 70 / 70 295 / 595 950 / 950 Balance 5612.3 / 5612.3 5084.98 / 4784.98 1832.79 / 1832.79 Lab / Micro Data Result Diagrams: 11/11/22 05:22 11/11/22 05:22 Labs: Laboratory Results - last 24 hr 11/11/22 05:22: WBC 13.8 H, RBC 2.97 L, Hgb 9.9 L, Hct 30.7 L, MCV 103.4 H, MCH 33.3 H, MCHC 32.2, RDW Std Deviation 50.5 H, RDW Coeff of Oleksandr 13.3, Plt Count 494 H, MPV 9.5, Immature Gran % (Auto) 0.400, Neut % (Auto) 72.8 H, Lymph % (Auto) 15.6 L, Morton % (Auto) 7.6, Eos % (Auto) 2.7, Baso % (Auto) 0.9, Absolute Neuts (auto) 10.0 H, Absolute Lymphs (auto) 2.14, Nucleated RBC % 0 11/11/22 05:22: Sodium 140, Potassium 3.8, Chloride 113 H, Carbon Dioxide 12.0 L, Anion Gap 15, BUN 64 H, Creatinine 8.45 H*, Estim Creat Clear Calc 10.11, Est GFR (MDRD) Af Amer 9 L, Est GFR (MDRD) Non-Af 7 L, BUN/Creatinine Ratio 7.6 L, Glucose 129 H, Calcium 7.1 L 11/11/22 05:22: Phosphorus 3.8, Magnesium 0.9 L* Micro: Microbiology 11/09/22 03:00 Urine, Catheterized Urine Culture - Final Culture exhibits no growth. 11/09/22 08:45 Stool Enteric Bacteriology - Final 11/09/22 06:30 Stool Stool Lactoferrin - Final 11/09/22 02:31 Nasal Secretion SARS-CoV-2 & FLU Antigen (Rapid) - Final Rhythm Strip Rhythm Strip: Sinus Tach Rate: 114 Ectopy: None Physical Exam Const alert, oriented x3 and no apparent distress HEENT normocephalic, head/scalp atraumatic and moist oral mucous membranes Eyes PERRL and EOMs intact bilaterally Neck no lymphadenopathy, supple and no JVD Lymph Lymphatic: no lymphadenopathy noted and no lymphedema noted Resp normal respiratory effort and normal air movement Resp Narrative: mildly diminished breath sounds bibasally. Tachypneic. No wheezes or crackles. Cardio regular rate, regular rhythm, S1 normal heart sound, S2 normal heart sound and no murmurs GI normal to inspection, nondistended, normoactive bowel sounds, soft to palpation,non-tender and non-distended Extremity normal capillary refill, no clubbing, cyanosis or edema and no calf tenderness General Extremity: no tenderness to palpation of joints or extremities Skin General Skin Exam: no breakdown Neuro CN's II-XII intact bilaterally, no focal motor deficits, no sensory deficits noted and deep tendon reflexes 2+ bilaterally Psych Appearance: appropriate Assessment & Plan Assessment/Plan (1) Upper GI bleed: PLAN: Upper GI bleed secondary to peptic ulcer disease status posttreatment endoscopically. His hemoglobin seems to be stable. He has been on Protonix drip. This can be switched to IV every 12 hours. He will also need to be on Carafate 1 g p.o. 3 times daily for 4 weeks. He can be transitioned when he leaves the hospital to Protonix 40 mg p.o. twice daily. Continue to monitor H&H. Charges/Coding Visit Charges Inpatient E&M: 30481 Subs Hosp L3 11/11/22 1646 <Electronically signed by Gino Briscoe DO> Gino Briscoe DO Cosigner Signature (if applicable): CC: ~ Signed [facility] Work Phone: [phone] Zacarias [facility] November 11, 2022 3:05pm Note Date/Time November 11, 2022 3:[address] [facility] Medical Records Department [address] [place] [address] Progress Note 11/11/22 1456 MR#: [id number] Acct: [id number] Name: HANSEL LOVE Rep #:[id number] : 1970 52 From: Cally Zacarias MD PCP: Dr. Zia Osman MD Status:AD M IN Location: ICU ICU05-1 Subjective Subjective Patient seen and examined. HE looked much better today. He had no active complaints and had an uneventful night. He is feeling much better today, and fever, tachypnea and tachycardia have improved significantly. REview of systems is otherwise negative. Objective Data Objective Data Vital Signs: Vital Signs Temp Pulse Resp BP Pulse Ox O2 Del Method O2 Flow Rate 97.7 F L 92 17 106/68 97 Room Air 2 11/11/22 10:00 11/11/22 10:11/11/22 10:00 11/11/22 10:00 11/11/22 10:11/11/22 10:11/09/22 22:00 Oxygen Flow Rate (L/min) 2 Oxygen Delivery Method Room Air Weight: 195 lb 12.328 oz Body Mass Index (BMI) 28.9 Intake & Output: Intake and Output for Last 24 Hours 11/09/22 11/10/22 11/11/22 23:59 23:59 23:59 Intake Total 5682.3 / 5682.3 5379.98 / 5379.98 2782.79 / 2782.79 Output Total 70 / 70 295 / 595 950 / 950 Balance 5612.3 / 5612.3 5084.98 / 4784.98 1832.79 / 1832.79 Lab / Micro Data Result Diagrams: 11/11/22 05:22 11/11/22 05:22 Labs: Laboratory Results - last 24 hr 11/11/22 05:22: WBC 13.8 H, RBC 2.97 L, Hgb 9.9 L, Hct 30.7 L, MCV 103.4 H, MCH 33.3 H, MCHC 32.2, RDW Std Deviation 50.5 H, RDW Coeff of Oleksandr 13.3, Plt Count 494 H, MPV 9.5, Immature Gran % (Auto) 0.400, Neut % (Auto) 72.8 H, Lymph % (Auto) 15.6 L, Morton % (Auto) 7.6, Eos % (Auto) 2.7, Baso % (Auto) 0.9, Absolute Neuts (auto) 10.0 H, Absolute Lymphs (auto) 2.14, Nucleated RBC % 0 11/11/22 05:22: Sodium 140, Potassium 3.8, Chloride 113 H, Carbon Dioxide 12.0 L, Anion Gap 15, BUN 64 H, Creatinine 8.45 H*, Estim Creat Clear Calc 10.11, Est GFR (MDRD) Af Amer 9 L, Est GFR (MDRD) Non-Af 7 L, BUN/Creatinine Ratio 7.6 L, Glucose 129 H, Calcium 7.1 L 11/11/22 05:22: Phosphorus 3.8, Magnesium 0.9 L* Micro: Microbiology 11/09/22 03:00 Urine, Catheterized Urine Culture - Final Culture exhibits no growth. 11/09/22 08:45 Stool Enteric Bacteriology - Final 11/09/22 06:30 Stool Stool Lactoferrin - Final 11/09/22 02:31 Nasal Secretion SARS-CoV-2 & FLU Antigen (Rapid) - Final Rhythm Strip Rhythm Strip: Sinus Tach Rate: 114 Ectopy: None Physical Exam Const alert, oriented x3 and no apparent distress HEENT normocephalic, head/scalp atraumatic and moist oral mucous membranes Eyes PERRL and EOMs intact bilaterally Neck no lymphadenopathy, supple and no JVD Lymph Lymphatic: no lymphadenopathy noted and no lymphedema noted Resp normal respiratory effort and normal air movement Resp Narrative: mildly diminished breath sounds bibasally. Tachypneic. No wheezes or crackles. Cardio regular rate, regular rhythm, S1 normal heart sound, S2 normal heart sound and no murmurs GI normal to inspection, nondistended, normoactive bowel sounds, soft to palpation,non-tender and non-distended Extremity normal capillary refill, no clubbing, cyanosis or edema and no calf tenderness General Extremity: no tenderness to palpation of joints or extremities Skin General Skin Exam: no breakdown Neuro CN's II-XII intact bilaterally, no focal motor deficits, no sensory deficits noted and deep tendon reflexes 2+ bilaterally Psych Appearance: appropriate Assessment & Plan Assessment/Plan (1) Sepsis: (2) Hypokalemia: (3) Acute alteration in mental status: (4) Acute hypotension: (5) Seizure in response to acute event: PLAN: Plan #Septic shock * now off levophed * septic shock has resolved * critical care and ID on board * on IV zosyn * blood cultures pending * #Seizure: * Thought to be due to alcohol withdrawal versus infection. * CT of the brain showed mucosal thickening of the right maxillary sinuses but did not show any other acute intracranial pathology. * EEG didnt show any evidence of seizure disorder * IV Ativan as needed #Hyponatremia: resolved. Na is now 139. #BLUE: * Creatinine is thought to trended down and is down to 8.45 today. Bicarb is 12. He started making urine. Nephrology on board. Renal ultrasound was unremarkable. * Continue hydration with IV fluids and monitor. * management as per nephrology * #non Anion gap metabolic acidosis: * Likely due to lactic acid and uremia. * Been hydrated with IV fluids. * bicarb is 12 today. Anion gap remains 15. * nephro on board * on oral bicarb. #UGI bleed * on IV PPI * EGD showed erosive esophagitis and oozing gastric ulcers with a visible vessel * keeps complaining of abdominal pain. concern for peptic ulcer disease * was admitted with bloody diarrhea. * CT o the abdomen showed thickening of the stomach. * on IV pantoprazole and octreotide * #Elevated liver enzymes * Liver enzymes only minimally elevated. Will monitor. #History of chronic alcohol use disorder * At risk of withdrawal. On CIWA protocol with Ativan. On thiamine and folic acid as well as multivitamin. #Hypomagnesemia and hypokalemia: will replace aggressively and trend. Hypertension: Hold BP meds on account of hypotension. #Thrombocytosis: Platelets are down to 494 today. Will monitor. #DVT prophylaxis: SCDs. Total time spent on evaluation and management of patient, reviewing chart and specialist notes, discussing plan with patient, his daughter and friend discussion with nursing and ancillary staff as well as documentation: 45 mins Charges/Coding Visit Charges Inpatient E&M: 76198 Rust Hosp L2 11/11/22 0573 <Electronically signed by Cally Zacarias MD> Cally Zacarias MD Cosigner Signature (if applicable): CC: ~ Signed [facility] Work Phone: [phone] Alcazar [facility] November 11, 2022 9:20am Note Date/Time November 11, 2022 8:[address] [facility] Medical Records Department [address] [place] [address] Progress Note - Nurse Office 11/11/22 0838 MR#: [id number] Acct: [id number] Name: HANSEL LOVE Rep #:[id number] : 1970 52 From: Timmy Alcazar DO PCP: Dr. Zia Osman MD Status:AD M IN Location: ICU ICU05-1 Assessment & Plan Assessment/Plan (1) Sepsis: PLAN: Plan RECOMMENDATIONS: 1. Continue supplemental IV fluids per nephrology recommendations. 2. Aggressive electrolyte repletion. 3. Continue empiric antimicrobials. 4. CIWA protocol with thiamine and folate. 5. Seizure precautions with as needed Ativan. 6. Octreotide and PPI infusions per GI recommendations. 7. Encourage incentive spirometer use and mobilize patient as tolerated. 8. The patient is medically stable for transfer out of the intensive care unit. IMPRESSIONS: 1. Sepsis The patient presented to the hospital with sepsis due to probable GI source of infection with acute sepsis related organ dysfunction as evidenced by encephalopathy, acute kidney injury and lactic acidemia. The patient did receive supplemental IV fluid hydration and was transiently on vasopressor support. The patient, at the present time, is hemodynamically stable. Plan to continue IV fluids per nephrology recommendations. 2. Erosive esophagitis/bleeding gastric ulcer status post intervention Continue PPI therapy and octreotide per GI recommendations. Continue to monitorH&H daily. Transfuse if hemoglobin drops below 7 g/dL. 3. Hypomagnesemia Aggressive magnesium repletion as ordered. Recheck levels in the morning. 4. Acute kidney injury Improving. Most likely prerenal in etiology in the setting of #1 coupled with intravascular volume depletion. The patient has received supplemental IV fluids, which will be continued as tolerated. Renal ultrasound was unremarkable. Plan to continue to monitor urine output for now. No current indication for renal replacement therapy. Nephrology is following to assist with medical management. 5. Encephalopathy with questionable new onset seizure activity Resolved. Most likely metabolic in etiology. However, I cannot discount the possibility of a postictal state. The patient denied a prior seizure history. Plan to continue seizure precautions along with as needed Ativan. EEG did not demonstrate any epileptiform discharges. 6. History of alcohol dependency/BPH/hypertension/GERD Complicates care, management, recovery and prognosis. Continue CIWA protocol with thiamine and folate repletion. Monitor for signs of alcohol withdrawal. This note was generated with [employer] dictation software. It may contain incorrectwords, spelling, and punctuation that were not noted in checking the note beforesigning. Subjective Subjective The patient was seen and examined at the bedside this morning. Events from the last 24 hours have been reviewed. The patient is currently afebrile, hemodynamically stable and maintaining appropriate oxygen saturations on room air. The patient was transiently on Levophed yesterday afternoon due to hypotension, but he has since been weaned from vasopressor support. The patientis documented to be overall net +11.3 L for the hospitalization. The patient underwent successful upper endoscopy yesterday which revealed erosive esophagitisand an oozing gastric ulcer which was injected and clipped. Creatinine has improved to 8.45 this morning. Magnesium remains low at 0.9. Objective Data Objective Data The patient's most recent lab work, culture data and imaging studies have all been personally reviewed. Enteric pathogen panel was negative. Blood cultures have not demonstrated any growth to date. Vital Signs: Vital Signs Temp Pulse Resp BP Pulse Ox O2 Del Method O2 Flow Rate 97.6 F L 95 24 H 102/68 97 Room Air 2 11/11/22 08:00 11/11/22 08:00 11/11/22 08:00 11/11/22 08:00 11/11/22 08:00 11/11/22 08:00 11/09/22 22:00 Oxygen Flow Rate (L/min) 2 Oxygen Delivery Method Room Air Weight: 195 lb 12.328 oz Body Mass Index (BMI) 28.9 Intake & Output: Intake and Output for Last 24 Hours 11/09/22 11/10/22 11/11/22 23:59 23:59 23:59 Intake Total 5682.3 / 5682.3 5379.98 / 5379.98 1562.25 / 1562.25 Output Total 70 / 70 295 / 595 950 / 950 Balance 5612.3 / 5612.3 5084.98 / 4784.98 612.25 / 612.25 Lab / Micro Data Attestation: I reviewed the patient's lab results. Result Diagrams: 11/11/22 05:22 11/11/22 05:22 Labs: Laboratory Results - last 24 hr 11/10/22 09:58: MRSA (PCR) Negative 11/11/22 05:22: WBC 13.8 H, RBC 2.97 L, Hgb 9.9 L, Hct 30.7 L, MCV 103.4 H, MCH 33.3 H, MCHC 32.2, RDW Std Deviation 50.5 H, RDW Coeff of Oleksandr 13.3, Plt Count 494 H, MPV 9.5, Immature Gran % (Auto) 0.400, Neut % (Auto) 72.8 H, Lymph % (Auto) 15.6 L, Morton % (Auto) 7.6, Eos % (Auto) 2.7, Baso % (Auto) 0.9, Absolute Neuts (auto) 10.0 H, Absolute Lymphs (auto) 2.14, Nucleated RBC % 0 11/11/22 05:22: Sodium 140, Potassium 3.8, Chloride 113 H, Carbon Dioxide 12.0 L, Anion Gap 15, BUN 64 H, Creatinine 8.45 H*, Estim Creat Clear Calc 10.11, Est GFR (MDRD) Af Amer 9 L, Est GFR (MDRD) Non-Af 7 L, BUN/Creatinine Ratio 7.6 L, Glucose 129 H, Calcium 7.1 L 11/11/22 05:22: Phosphorus 3.8, Magnesium 0.9 L* Micro: Microbiology 11/09/22 03:00 Urine, Catheterized Urine Culture - Preliminary Culture exhibits no growth. 11/09/22 08:45 Stool Enteric Bacteriology - Final 11/09/22 06:30 Stool Stool Lactoferrin - Final 11/09/22 02:31 Nasal Secretion SARS-CoV-2 & FLU Antigen (Rapid) - Final Radiography Diagnostic Testing: Radiology Impression Renal Ultrasound 11/09/22 07:00 IMPRESSION: Normal ultrasound of the kidneys. A Maciel catheter is seen within an empty urinary bladder. Electronically Signed: Anmol Muhammad MD at 10:49 EDT , Rhythm Strip Rhythm Strip: Sinus Tach Rate: 114 Ectopy: None Physical Exam Const alert and no apparent distress General Appearance: cooperative HEENT normocephalic and head/scalp atraumatic Eyes PERRL, EOMs intact bilaterally and conjunctivae normal Neck supple General: trachea midline Chest inspection of chest normal Resp normal respiratory effort Auscultation: Negative for rales, rhonchi or wheezes Cardio regular rate, regular rhythm, S1 normal heart sound and S2 normal heart sound GI normal to inspection, nondistended, normoactive bowel sounds Extremity no clubbing, cyanosis or edema Skin no rashes or lesions noted Neuro CN's II-XII intact bilaterally and no focal motor deficits Psych cooperative and affect normal Activity / Motor Behavior: restless Charges/Coding Visit Charges Inpatient E&M: 35861 Subs Hosp L2 11/11/22 0920 <Electronically signed by Timmy Alcazar DO> Cosigner Signature (if applicable): CC: ~ Signed [facility] Work Phone: [phone]) [phone] Zacarias [facility] November 10, 2022 5:32pm Note Date/Time November 10, 2022 2:54 pm [facility] Medical Records Department [address] [place] [address] Progress Note 11/10/22 1444 MR#: [id number] Acct: [id number] Name: HANSEL LOVE Jr. Rep #:[id number] : 1970 52 From: Cally Zacarias MD PCP: Dr. Zia Osman MD Status:AD M IN Location: ICU ICU05-1 Subjective Subjective Patient seen and examined. His daughter and friend were by his bedside. He complained of feeling hungry and wanted ice chips. HE is currently NPO for EGD today. Review of systems otherwise negative. He remains hypotensive, tachycardicand tachypneic. Review of systems is otherwise negative. Objective Data Objective Data Vital Signs: Vital Signs Temp Pulse Resp BP Pulse Ox O2 Del Method O2 Flow Rate 97.8 F 115 H 20 H 92/53 L 99 Room Air 2 11/10/22 14:00 11/10/22 14:00 11/10/22 14:00 11/10/22 14:00 11/10/22 14:00 11/10/22 14:00 11/09/22 22:00 Oxygen Flow Rate (L/min) 2 Oxygen Delivery Method Room Air Weight: 185 lb 13.595 oz Body Mass Index (BMI) 27.4 Intake & Output: Intake and Output for Last 24 Hours 11/08/22 11/09/22 11/10/22 23:59 23:59 23:59 Intake Total 5682.3 / 5682.3 3953.13 / 3953.13 Output Total 70 / 70 20 / 20 Balance 5612.3 / 5612.3 3933.13 / 3933.13 Lab / Micro Data Result Diagrams: 11/10/22 03:54 11/10/22 03:54 Labs: Laboratory Results - last 24 hr 11/10/22 03:54: WBC 16.7 H, RBC 3.54 L, Hgb 11.6 L, Hct 35.9 L, MCV 101.4 H, MCH32.8 H, MCHC 32.3, RDW Std Deviation 49.0 H, RDW Coeff of Oleksandr 13.1, Plt Count 523 H, MPV 9.1, Immature Gran % (Auto) 0.200, Neut % (Auto) 78.6 H, Lymph % (Auto) 11.9 L, Morton % (Auto) 8.5, Eos % (Auto) 0.3, Baso % (Auto) 0.5, Absolute Neuts (auto) 13.1 H, Absolute Lymphs (auto) 1.99, Nucleated RBC % 0 11/10/22 03:54: Sodium 139, Potassium 4.2, Chloride 113 H, Carbon Dioxide 11.0 L, Anion Gap 15, BUN 69 H, Creatinine 10.50 H*, Estim Creat Clear Calc 8.14, Est GFR (MDRD) Af Amer 7 L, Est GFR (MDRD) Non-Af 6 L, BUN/Creatinine Ratio 6.6 L, Glucose 92, Calcium 6.8 L, Total Bilirubin 0.20, AST 118 H, ALT 24, Alkaline Phosphatase 74, Total Protein 6.4, Albumin 2.7 L, Globulin 3.7, Albumin/GlobulinRatio 0.7 L 11/10/22 09:58: MRSA (PCR) Negative Micro: Microbiology 11/09/22 03:00 Urine, Catheterized Urine Culture - Preliminary Culture exhibits no growth. 11/09/22 08:45 Stool Enteric Bacteriology - Final 11/09/22 06:30 Stool Stool Lactoferrin - Final 11/09/22 02:31 Nasal Secretion SARS-CoV-2 & FLU Antigen (Rapid) - Final Rhythm Strip Rhythm Strip: Sinus Tach Rate: 114 Ectopy: None Physical Exam Const alert Constitutional Narrative: restless HEENT normocephalic, head/scalp atraumatic and moist oral mucous membranes Eyes PERRL and EOMs intact bilaterally Neck no lymphadenopathy, supple and no JVD Lymph Lymphatic: no lymphadenopathy noted and no lymphedema noted Resp Resp Narrative: mildly diminished breath sounds bibasally. Tachypneic. No wheezes or crackles. Cardio regular rhythm, S1 normal heart sound, S2 normal heart sound and no murmurs Cardio Narrative: tachypneic GI normal to inspection, nondistended, normoactive bowel sounds, soft to palpation,non-tender and non-distended Extremity normal capillary refill, no clubbing, cyanosis or edema and no calf tenderness General Extremity: no tenderness to palpation of joints or extremities Skin General Skin Exam: no breakdown Neuro CN's II-XII intact bilaterally, no focal motor deficits, no sensory deficits noted and deep tendon reflexes 2+ bilaterally Psych Psych Narrative: restless Assessment & Plan Assessment/Plan (1) Sepsis: (2) Hypokalemia: (3) Acute alteration in mental status: (4) Acute hypotension: (5) Seizure in response to acute event: PLAN: Plan #Septic shock * remains hypotensive.hasnt been responding to IVF * patient placed on levophed low dose by critical care today * on IV zosyn * critical care and ID on board * * #Seizure: * Thought to be due to alcohol withdrawal versus infection. * CT of the brain showed mucosal thickening of the right maxillary sinuses but did not show any other acute intracranial pathology. * EEG didnt show any evidence of seizure disorder * IV Ativan as needed #Hyponatremia: resolved. Na is now 139. #BLUE: * Cr today is still elevate at 10.5 * has minimal urine output. * bicarb is 11. Creatinine was 10 on admission. * nephrology on board * Baseline creatinine is less than 1. * management as per nephrology * #non Anion gap metabolic acidosis: * Likely due to lactic acid and uremia. * Been hydrated with IV fluids. * anion gap today is down to 15 * nephro on board * on bicarb. #Abdominal pain * keeps complaining of abdominal pain. concern for peptic ulcer disease * was admitted with bloody diarrhea. * CT o the abdomen showed thickening of the stomach. * GI on board; for EGD today. * on IV pantoprazole * #Elevated liver enzymes * Liver enzymes only minimally elevated. Will monitor. #History of chronic alcohol use disorder * At risk of withdrawal. On CIWA protocol with Ativan. On thiamine and folic acid as well as multivitamin. #Hypomagnesemia and hypokalemia: will replace aggressively and trend. Hypertension: Hold BP meds on account of hypotension. #Thrombocytosis: Platelets are down to 523 today. Will monitor. #DVT prophylaxis: SCDs. Total time spent on evaluation and management of patient, reviewing chart and specialist notes, discussing plan with patient, his daughter and friend discussion with nursing and ancillary staff as well as documentation: 52 mins Charges/Coding Visit Charges Inpatient E&M: 57053 Subs Hosp 11/10/22 5608 <Electronically signed by Cally Zacarias MD> Cally Zacarias MD Cosigner Signature (if applicable): CC: ~ Signed [facility] Work Phone: 1(424) 936-803304-04-2023 [facility] Brown [facility] November 10, 2022 11:48am Note Date/Time November 10, 2022 11:[address] [facility] Medical Records Department [address] [place] [address] Progress Note - Nephrology 11/10/22 1146 MR#: [id number] Acct: [id number] Name: HANSEL LOVE JrCristhian Rep #:[id number] : 1970 52 From: Rickey carter MD PCP: Dr. Zia Osman MD Status:AD M IN Location: ICU ICU-1 Subjective Subjective no new complaints. Blood pressure remains low. No significant urine output. Creatinine is about the same. Scheduled for endoscopy today. Objective Data Objective Data Vital Signs: Vital Signs Temp Pulse Resp BP Pulse Ox O2 Del Method O2 Flow Rate 97.9 F 109 H 28 H 92/49 L 98 Room Air 2 11/10/22 11:00 11/10/22 11:00 11/10/22 11:00 11/10/22 11:43 11/10/22 11:00 11/10/22 11:00 11/09/22 22:00 Oxygen Flow Rate (L/min) 2 Oxygen Delivery Method Room Air Weight: 84.3 kg Body Mass Index (BMI) 27.4 Intake & Output: Intake and Output for Last 24 Hours 11/08/22 11/09/22 11/10/22 23:59 23:59 23:59 Intake Total 5682.3 / 5682.3 3881.67 / 3881.67 Output Total 70 / 70 20 / 20 Balance 5612.3 / 5612.3 3861.67 / 3861.67 Lab / Micro Data Result Diagrams: 11/10/22 03:54 11/10/22 03:54 Labs: Laboratory Results - last 24 hr 11/09/22 02:31: Diff Path Review Reviewed 11/10/22 03:54: WBC 16.7 H, RBC 3.54 L, Hgb 11.6 L, Hct 35.9 L, MCV 101.4 H, MCH32.8 H, MCHC 32.3, RDW Std Deviation 49.0 H, RDW Coeff of Oleksandr 13.1, Plt Count 523 H, MPV 9.1, Immature Gran % (Auto) 0.200, Neut % (Auto) 78.6 H, Lymph % (Auto) 11.9 L, Morton % (Auto) 8.5, Eos % (Auto) 0.3, Baso % (Auto) 0.5, Absolute Neuts (auto) 13.1 H, Absolute Lymphs (auto) 1.99, Nucleated RBC % 0 11/10/22 03:54: Sodium 139, Potassium 4.2, Chloride 113 H, Carbon Dioxide 11.0 L, Anion Gap 15, BUN 69 H, Creatinine 10.50 H*, Estim Creat Clear Calc 8.14, Est GFR (MDRD) Af Amer 7 L, Est GFR (MDRD) Non-Af 6 L, BUN/Creatinine Ratio 6.6 L, Glucose 92, Calcium 6.8 L, Total Bilirubin 0.20, AST 118 H, ALT 24, Alkaline Phosphatase 74, Total Protein 6.4, Albumin 2.7 L, Globulin 3.7, Albumin/GlobulinRatio 0.7 L Micro: Microbiology 11/09/22 03:00 Urine, Catheterized Urine Culture - Preliminary Culture exhibits no growth. 11/09/22 08:45 Stool Enteric Bacteriology - Final 11/09/22 06:30 Stool Stool Lactoferrin - Final 11/09/22 02:31 Nasal Secretion SARS-CoV-2 & FLU Antigen (Rapid) - Final Rhythm Strip Rhythm Strip: Sinus Tach Rate: 114 Ectopy: None Physical Exam Narrative Alert awake oriented x 3 no obvious distress no pallor no icterus no JVD s1s2 no murmurs lungs clear abdomen soft no organomegaly no edema no cyanosis maciel + Assessment & Plan Assessment/Plan (1) Acute kidney failure: PLAN: Baseline creatinine is normal. Renal ultrasound without any hydronephrosis. Urinalysis is not impressive. Most likely ischemic ATN due to low blood pressure. As per family, he has been sick for about 2 weeks now. Urine output is minimal. Sttill some dry side. Continue IV fluids, change to Ringer's lactate. No acute indications for dialysis today. We'll try to treat acidosis with IV fluids for now. acidosis. Elevated. Lactate has resolved. Likely due to BLUE. Change IV fluids to Ringer's lactate. Discussed with family at bedside Discussed with ICU attending (2) Acute encephalopathy: (3) Hypokalemia: (4) Alcohol abuse, daily use: PLAN: Plan 11/10/22 1148 <Electronically signed by Rickey Brown MD> Cosigner Signature (if applicable): CC: ~ Signed [facility] Work Phone: 1(635) [phone] Alcazar [facility] November 10, 2022 9:47am Note Date/Time November 10, 2022 7:[address] [facility] Medical Records Department [address] [place] [address] Progress Note - Nurse Office 11/10/22 0734 MR#: [id number] Acct: [id number] Name: HANSEL LOVE Jr. Rep #:[id number] : 1970 52 From: Timmy Alcazar DO PCP: Dr. Zia Osman MD Status:AD M IN Location: ICU ICU05-1 Assessment & Plan Assessment/Plan (1) Sepsis: PLAN: Plan RECOMMENDATIONS: 1. Continue supplemental IV fluid hydration. 2. Aggressive electrolyte repletion. 3. Empiric antimicrobials as ordered, pending finalized infectious work-up. 4. CIWA protocol with thiamine and folate. 5. Seizure precautions with as needed Ativan. 6. Tentative plans for EGD today. IMPRESSIONS: 1. Sepsis The patient presented to the hospital with sepsis due to probable GI source of infection with acute sepsis related organ dysfunction as evidenced by encephalopathy, acute kidney injury and lactic acidemia. The patient has received supplemental IV fluid hydration with tenuous hemodynamics. I do suspect that the patient was significantly intravascular volume depleted upon presentation. Plan to continue current supportive measures. If the patient's hemodynamic status decompensates, Levophed can be initiated. Plan to continue empiric antimicrobials as ordered. Tentative plans for upper endoscopic evaluation today by gastroenterology. 2. Hyponatremia/hypokalemia/hypomagnesemia Improving. Likely secondary to generalized hypovolemia, coupled with chronic alcohol dependency. Plan to continue IV fluid hydration as tolerated over alongwith aggressive electrolyte repletion. 3. Acute kidney injury Most likely prerenal in etiology in the setting of #1 coupled with intravascularvolume depletion. The patient has received supplemental IV fluids, which will be continued as tolerated. Renal ultrasound was unremarkable. Plan to continueto monitor urine output for now. No current indication for renal replacement therapy. Nephrology is following to assist with medical management. 4. Encephalopathy with questionable new onset seizure activity Most likely metabolic in etiology. However, I cannot discount the possibility of a postictal state. The patient denied a prior seizure history. Plan to continue seizure precautions along with as needed Ativan. EEG did not demonstrate any epileptiform discharges. 5. History of alcohol dependency/BPH/hypertension/GERD Complicates care, management, recovery and prognosis. Continue CIWA protocol with thiamine and folate repletion. Monitor for signs of alcohol withdrawal. Continue to hold antihypertensives. This note was generated with [employer] dictation software. It may contain incorrectwords, spelling, and punctuation that were not noted in checking the note beforesigning. Subjective Subjective The patient was seen and examined at the bedside this morning. Events from the last 24 hours have been reviewed. The patient is currently afebrile, hemodynamically stable and maintaining appropriate oxygen saturations on room air. The patient did have some soft blood pressures overnight, which required additional IV fluid resuscitation. He never had to be started on vasopressor support. The patient is currently documented to be overall net +8 L for the hospitalization. White count remains elevated at 16,000. Bicarbonate remains low at 11 with a BUN of 69 and creatinine of 10.5. The patient was evaluated bygastroenterology yesterday with tentative plans for upper endoscopy. Objective Data Objective Data The patient's most recent lab work, culture data and imaging studies have all been personally reviewed. Enteric pathogen panel was negative. Blood cultures are pending. Vital Signs: Vital Signs Temp Pulse Resp BP Pulse Ox O2 Del Method O2 Flow Rate 98.0 F 89 17 82/53 L 97 Room Air 2 11/10/22 07:00 11/10/22 07:00 11/10/22 07:00 11/10/22 07:00 11/10/22 07:00 11/10/22 07:00 11/09/22 22:00 Oxygen Flow Rate (L/min) 2 Oxygen Delivery Method Room Air Weight: 185 lb 13.595 oz Body Mass Index (BMI) 27.4 Intake & Output: Intake and Output for Last 24 Hours 11/08/22 11/09/22 11/10/22 23:59 23:59 23:59 Intake Total 5682.3 / 5682.3 2470 / 2470 Output Total 70 / 70 Balance 5612.3 / 5612.3 2469 / 2469 Lab / Micro Data Attestation: I reviewed the patient's lab results. Result Diagrams: 11/10/22 03:54 11/10/22 03:54 Labs: Laboratory Results - last 24 hr 11/09/22 02:31: Diff Path Review Reviewed 11/09/22 06:30: Hemoglobin A1c 5.1 11/09/22 08:47: Lactic Acid 1.1 11/09/22 08:47: Troponin I High Sens 9, Lipase 295 11/10/22 03:54: WBC 16.7 H, RBC 3.54 L, Hgb 11.6 L, Hct 35.9 L, MCV 101.4 H, MCH32.8 H, MCHC 32.3, RDW Std Deviation 49.0 H, RDW Coeff of Oleksandr 13.1, Plt Count 523 H, MPV 9.1, Immature Gran % (Auto) 0.200, Neut % (Auto) 78.6 H, Lymph % (Auto) 11.9 L, Morton % (Auto) 8.5, Eos % (Auto) 0.3, Baso % (Auto) 0.5, Absolute Neuts (auto) 13.1 H, Absolute Lymphs (auto) 1.99, Nucleated RBC % 0 11/10/22 03:54: Sodium 139, Potassium 4.2, Chloride 113 H, Carbon Dioxide 11.0 L, Anion Gap 15, BUN 69 H, Creatinine 10.50 H*, Estim Creat Clear Calc 8.14, Est GFR (MDRD) Af Amer 7 L, Est GFR (MDRD) Non-Af 6 L, BUN/Creatinine Ratio 6.6 L, Glucose 92, Calcium 6.8 L, Total Bilirubin 0.20, AST 118 H, ALT 24, Alkaline Phosphatase 74, Total Protein 6.4, Albumin 2.7 L, Globulin 3.7, Albumin/GlobulinRatio 0.7 L Micro: Microbiology 11/09/22 08:45 Stool Enteric Bacteriology - Final 11/09/22 06:30 Stool Stool Lactoferrin - Final 11/09/22 02:31 Nasal Secretion SARS-CoV-2 & FLU Antigen (Rapid) - Final Radiography Diagnostic Testing: Radiology Impression Renal Ultrasound 11/09/22 07:00 IMPRESSION: Normal ultrasound of the kidneys. A Maciel catheter is seen within an empty urinary bladder. Electronically Signed: Anmol Muhammad MD at 10:49 EDT Reading Location ID and State: [facility] [place] , Service support , Rhythm Strip Rhythm Strip: Sinus Tach Rate: 114 Ectopy: None Physical Exam Const alert and no apparent distress General Appearance: cooperative HEENT normocephalic and head/scalp atraumatic Eyes PERRL, EOMs intact bilaterally and conjunctivae normal Neck supple General: trachea midline Chest inspection of chest normal Resp normal respiratory effort Auscultation: Negative for rales, rhonchi or wheezes Cardio S1 normal heart sound and S2 normal heart sound Rate: tachycardic GI normal to inspection, nondistended, normoactive bowel sounds Extremity no clubbing, cyanosis or edema Skin no rashes or lesions noted Neuro CN's II-XII intact bilaterally and no focal motor deficits Psych cooperative and affect normal Charges/Coding Visit Charges Inpatient E&M: 58020 Subs Hosp L3 11/10/22 0947 <Electronically signed by Timmy Alcazar DO> Cosigner Signature (if applicable): CC: ~ Signed [facility] Work Phone: [phone]) 396-481804-04-[address] Alcazar [facility] November 10, 2022 7:34am Note Date/Time November 09, 2022 7:[address] [facility] Medical Records Department [address] [place] [address] Consultation - Nurse Office 11/09/22 0749 MR#: [id number] Acct: [id number] Name: LOVEHANSEL PAULA Bray Rep #:[id number] : 1970 52 From: Timmy Alcazar DO PCP: Dr. Zia Osman MD Status:AD M IN Location: ICU ICU05-1 Assessment & Plan Assessment/Plan (1) Sepsis: PLAN: Plan RECOMMENDATIONS: 1. Continue supplemental IV fluid hydration. 2. Aggressive electrolyte repletion. 3. Empiric antimicrobials. 4. CIWA protocol with thiamine and folate. 5. Seizure precautions with as needed Ativan. 6. Neurology consultation. IMPRESSIONS: 1. Sepsis The patient presented to the hospital with sepsis due to probable GI source of infection with acute sepsis related organ dysfunction as evidenced by encephalopathy, acute kidney injury and lactic acidemia. The patient has received supplemental IV fluid hydration, and at the present time, is hemodynamically stable without the need for vasopressor support. Enteric panel is pending. Empiric antimicrobials have been initiated. 2. Hyponatremia/hypokalemia/hypomagnesemia Likely secondary to generalized hypovolemia, coupled with chronic alcohol dependency. Plan to continue IV fluid hydration as tolerated over along with aggressive electrolyte repletion. 3. Acute kidney injury Most likely prerenal in etiology in the setting of #1 coupled with intravascularvolume depletion. The patient has received supplemental IV fluids, which will be continued as tolerated. Renal ultrasound was unremarkable. Plan to continueto monitor urine output for now. No current indication for renal replacement therapy. 4. Encephalopathy with questionable new onset seizure activity Most likely metabolic in etiology. However, I cannot discount the possibility of a postictal state. The patient denied a prior seizure history. Plan to continue seizure precautions along with as needed Ativan. Neurology consultation will be obtained. 5. History of alcohol dependency/BPH/hypertension/GERD Complicates care, management, recovery and prognosis. Continue CIWA protocol with thiamine and folate repletion. Monitor for signs of alcohol withdrawal. Hold antihypertensives for now. This note was generated with [employer] dictation software. It may contain incorrectwords, spelling, and punctuation that were not noted in checking the note beforesigning. HPI Consult Data Date of Consult: 11/10/22 HPI Narrative Reason for Consultation: Septic shock HPI Narrative: The patient is a 52-year-old male, with a history as outlined below, who presented to the emergency department via EMS on November 09 with nausea, vomiting and diarrhea. While the patient does have an alcohol abuse history, he reportedthat he has not drank anything for greater than 1 week. Typically, he drinks multiple beers daily. He denied any history of prior seizure activity. However, there is some concern by EMS that the patient experienced generalized tonic-clonic seizure activity while in route to the hospital. On presentation to the emergency department, the patient was noted to have a temperature of 96.4 ?F. He was notably tachycardic and tachypneic with a presenting blood pressure of 77/52 mmHg. Laboratory evaluation revealed an elevated white blood cell count to 22,000. Platelet count was elevated at 802,000. Coagulation profile was within normal limits. Chemistry profile was notable for a sodium of 128, potassium of 3.0, chloride of 89, bicarbonate of 14, anion gap of 25, BUN of 55 and creatinine of 10.9. Lactate was elevated at 8.5. Magnesium was low at 0.5. Head CT demonstrated no acute intracranial abnormalities. Initial chest x-ray demonstrated no acute cardiopulmonary process. The patient did receive supplemental IV fluid hydration and was started on antibiotics. He was subsequently transferred to the medical intensive care unit for further management. [facility] Medical History Acute encephalopathy Alcohol abuse, daily use Depression GERD (gastroesophageal reflux disease) HTN (hypertension) Perianal abscess Serotonin syndrome Serotonin syndrome Smoker Urinary retention due to benign prostatic hyperplasia Home Medications omeprazole 40 mg capsule,delayed release 40 mg PO DAILY REFLUX 07/04/15 [History Last Taken 05/30/18] lisinopril 20 mg-hydrochlorothiazide 12.5 mg tablet 1 tab PO DAILY BLOOD PRESSURE 06/17/17 [History Last Taken 05/30/18] finasteride 5 mg tablet 5 mg PO DAILY #30 tabs 06/20/17 [Rx Last Taken 05/30/18] magnesium oxide 400 mg (241.3 mg magnesium) tablet 400 mg PO BIDCM SUPPLEMENT 06/29/17 [History Last Taken 05/30/18] tamsulosin 0.4 mg capsule 0.4 mg PO DAILY@1730 PROSTATE 06/29/17 [History Last Taken 05/30/18] vitamin B12 500 mcg-folic acid 400 mcg tablet 1 tab PO QDAY 01/04/18 [History Last Taken 05/30/18] meloxicam 15 mg tablet 15 mg PO DAILY #21 tabs 09/14/22 [Rx Last Taken Unknown] Allergy/AdvReac Type Severity Reaction Status Date / Time Penicillins Allergy Unknown Verified 11/09/22 02:49 fluoxetine [From Prozac] AdvReac Other Verified 11/09/22 02:49 Family History Sister Diabetes Heart disease Mother CAD (coronary artery disease) Surgical History S/P right knee arthroscopy S/P tonsillectomy Social History Smoking Status: Current every day smoker tobacco type: cigarettes alcohol intake: current alcohol intake frequency: holidays/special occasions only ROS ROS Narrative 10 systems were reviewed with pertinent positives as noted in the HPI above. Physical Exam Const alert and no apparent distress General Appearance: cooperative HEENT normocephalic and head/scalp atraumatic Eyes PERRL, EOMs intact bilaterally and conjunctivae normal Neck supple General: trachea midline Chest inspection of chest normal Resp normal respiratory effort Auscultation: Negative for rales, rhonchi or wheezes Cardio S1 normal heart sound and S2 normal heart sound Rate: tachycardic GI normal to inspection, nondistended, normoactive bowel sounds Extremity no clubbing, cyanosis or edema Skin no rashes or lesions noted Neuro CN's II-XII intact bilaterally and no focal motor deficits Psych cooperative and affect normal Lab / Micro Data Result Diagrams: 11/10/22 03:54 11/10/22 03:54 Labs: Laboratory Results - last 24 hr 11/09/22 02:30: POC Glucose 183 H 11/09/22 02:31: WBC 21.9 H, RBC 4.55 L, Hgb 15.1, Hct 46.4, MCV 102.0 H, MCH 33.2 H, MCHC 32.5, RDW Std Deviation 49.1 H, RDW Coeff of Oleksandr 13.1, Plt Count 802 H*, MPV 10.0, Immature Gran % (Auto) 3.400 H, Neut % (Auto) 84.5 H, Lymph % (Auto) 8.2 L, Morton % (Auto) 2.8, Eos % (Auto) 0.2, Baso % (Auto) 0.9, Absolute Neuts (auto) 18.5 H, Absolute Lymphs (auto) 1.80, Nucleated RBC % 0, Diff Path Review May foll, Platelet Estimate [employer], Macrocytosis 1+ 11/09/22 02:31: PT 14.6, INR 1.2, APTT 29.2 11/09/22 02:31: Sodium 128 L, Potassium 3.0 L, Chloride 89 L, Carbon Dioxide 14.0 L, Anion Gap 25 H, BUN 55 H, Creatinine 10.90 H*, Estim Creat Clear Calc 7.84, Est GFR (MDRD) Af Amer 6 L, Est GFR (MDRD) Non-Af 5 L, BUN/Creatinine Ratio 5.0 L, Glucose 257 H, Calcium 9.7, Total Bilirubin 0.40, AST 38 H, ALT 29,Alkaline Phosphatase 152 H, Total Protein 10.8 H, Albumin 4.8, Globulin 6.0 H, Albumin/Globulin Ratio 0.8 L 11/09/22 02:31: Ethyl Alcohol Cancelled 11/09/22 02:31: Magnesium 0.5 L* 11/09/22 02:50: Ammonia 28.0 11/09/22 02:50: Lactic Acid 8.5 H* 11/09/22 03:00: Urine Color Yellow, Urine Clarity Clear, Urine pH 5.0, Ur Specific Courtland 1.030, Urine Protein 30 H, Urine Glucose (UA) Normal, Urine Ketones Negative, Urine Occult Blood 10 H, Urine Nitrite Negative, Urine Bilirubin 3 H, Urine Urobilinogen Normal, Ur Leukocyte Esterase 25 H, Urine RBC 0-5 SEEN, Urine WBC 0-5 SEEN, Ur Squamous Epith Cells 0 SEEN, Urine Bacteria RARE, Hyaline Casts 0-5 SEEN, Urine Mucus 0 SEEN 11/09/22 03:55: Ethyl Alcohol < 3.0 11/09/22 06:30: Hgb 14.7, Hct 46.4 Micro: Microbiology 11/09/22 06:30 Stool Stool Lactoferrin - Final 11/09/22 02:31 Nasal Secretion SARS-CoV-2 & FLU Antigen (Rapid) - Final ABG Data ABG results: ABG 11/09/22 02:57 Specimen Type YAO VBG pH 7.17 L* VBG pO2 40 VBG HCO3 13 L VBG Total CO2 14 L VBG O2 Sat (Calc) 61 VBG Base Excess -16 L POC Mix VBG pCO2 Pt Tmp 36.3 L O2 Delivery Device NRB Crit Call To/Read Back Yes Blood Gas Notified Whom mukherjee Blood Gas Notified Time 02:59:16 Rhythm Strip Rhythm Strip: Sinus Tach Rate: 114 Ectopy: None Radiology Impression Brain CT 11/09/22 02:30 IMPRESSION: 1. No acute intracranial abnormality. 2. Mucosal thickening right maxillary sinus. Electronically Signed: Michael Easley MD at 3:26 EDT , Chest X-Ray 11/09/22 03:10 IMPRESSION: No acute cardiopulmonary abnormality. Electronically Signed: Michael Easley MD at 3:29 EDT , KUB X-Ray 11/09/22 06:00 IMPRESSION: Prominent stomach with thickened rugal folds. Findings may indicate gastritis or an infiltrative process. Consider follow-up with upper endoscopy. Electronically Signed: Gary Mcgraw MD at 7:00 EDT , Charges/Coding Visit Charges Inpatient E&M: 80824 Init Hosp L3 11/10/22 0734 <Electronically signed by Timmy Alcazar DO> Cosigner Signature (if applicable): CC: Dr. Rickey Brown MD; Dr. Zia Osman MD; Dr. Reed Espana MD; Dr. Jama Garner MD~ Signed [facility] Work Phone: 1(240) 518-673004-03-2023 Consult note Author Gino Friend [facility] November 09, 2022 6:57pm Note Date/Time November 09, 2022 6:[address] [facility] Medical Records Department [address] [place] [address] Consultation - GI 11/09/22 1853 MR#: [id number] Acct: [id number] Name: HANSEL LOVE Jr. Rep #:[id number] : 1970 52 From: Gino Friend DO PCP: Dr. Zia Osman MD Status:AD M IN Location: ICU ICU-1 HPI Consult Data Date of Consult: 11/09/22 HPI Narrative Reason for Consultation: GI bleed HPI Narrative: HANSEL LOVE, is a 52 M who presents with nausea vomiting and diarrhea. He has a significant history of alcoholism; BPH and hypertension who presented to the emergency department with a 2-week history of progressively worsening nausea, vomiting and diarrhea that started about 2 weeks ago.? Associated with his symptoms is lethargy.? When paramedics went to pick patient patient up he had a tonic clonic seizures and became even more lethargic thereafter.? Reportedly in the past patient has not had any seizures. Patient drinks alcohol a lot but her daughter thinks that in the past 48 before presentation patient has cut down.? Per daughter patient drinks about 6 packs beer per day. Patient reported that he drinks about 6 packs beer about 2 times in a week. Two days before presentation patient fell 4 times. At the emergency department patient was found to have a poor urine output even after receiving 4 L of normalsaline. Patient was found to have bloody loose bowel movements at the ED. History was taken predominantly from patient's daughter who was at the bedside.? Biochemical analysis did not note that his white blood cell count was increased to 21,000. He had a CT scan of the abdomen pelvis that showed some thickening of the stomach possibly secondary to gastritis or underlying infiltrative process. I was consulted for evaluation of his upper GI tract. [facility] Medical History Acute encephalopathy Alcohol abuse, daily use Depression GERD (gastroesophageal reflux disease) HTN (hypertension) Perianal abscess Serotonin syndrome Serotonin syndrome Smoker Urinary retention due to benign prostatic hyperplasia Home Medications omeprazole 40 mg capsule,delayed release 40 mg PO DAILY REFLUX 07/04/15 [History Last Taken 05/30/18] lisinopril 20 mg-hydrochlorothiazide 12.5 mg tablet 1 tab PO DAILY BLOOD PRESSURE 06/17/17 [History Last Taken 05/30/18] finasteride 5 mg tablet 5 mg PO DAILY #30 tabs 06/20/17 [Rx Last Taken 05/30/18] magnesium oxide 400 mg (241.3 mg magnesium) tablet 400 mg PO BIDCM SUPPLEMENT 06/29/17 [History Last Taken 05/30/18] tamsulosin 0.4 mg capsule 0.4 mg PO DAILY@1730 PROSTATE 06/29/17 [History Last Taken 05/30/18] vitamin B12 500 mcg-folic acid 400 mcg tablet 1 tab PO QDAY 01/04/18 [History Last Taken 05/30/18] meloxicam 15 mg tablet 15 mg PO DAILY #21 tabs 09/14/22 [Rx Last Taken Unknown] Allergy/AdvReac Type Severity Reaction Status Date / Time Penicillins Allergy Unknown Verified 11/09/22 02:49 fluoxetine [From Prozac] AdvReac Other Verified 11/09/22 02:49 Family History Sister Diabetes Heart disease Mother CAD (coronary artery disease) Surgical History S/P right knee arthroscopy S/P tonsillectomy Social History Smoking Status: Current every day smoker tobacco type: cigarettes alcohol intake: current alcohol intake frequency: holidays/special occasions only ROS ROS Narrative Unable to obtain Physical Exam Narrative Alert to name. No apparent distress. Having a difficult time recalling recent events. Follows simple commands. S1, S2, rhythm and rate regular. Rate tachycardic Lung sounds clear anteriorly and posteriorly. No wheezes, rhonchi or rales noted Abdomen soft, positive bowel sounds x4 quadrants, hypoactive. Lower abdomen painful to touch. No edema noted to bilateral lower legs, feet, hands Indwelling Maciel catheter with clear, scant urine in tubing Lab / Micro Data Result Diagrams: 11/09/22 06:30 11/09/22 02:31 Labs: Laboratory Results - last 24 hr 11/09/22 02:30: POC Glucose 183 H 11/09/22 02:31: WBC 21.9 H, RBC 4.55 L, Hgb 15.1, Hct 46.4, MCV 102.0 H, MCH 33.2 H, MCHC 32.5, RDW Std Deviation 49.1 H, RDW Coeff of Oleksandr 13.1, Plt Count 802 H*, MPV 10.0, Immature Gran % (Auto) 3.400 H, Neut % (Auto) 84.5 H, Lymph % (Auto) 8.2 L, Morton % (Auto) 2.8, Eos % (Auto) 0.2, Baso % (Auto) 0.9, Absolute Neuts (auto) 18.5 H, Absolute Lymphs (auto) 1.80, Nucleated RBC % 0, Diff Path Review Reviewed, Platelet Estimate MKD INC, Macrocytosis 1+ 11/09/22 02:31: PT 14.6, INR 1.2, APTT 29.2 11/09/22 02:31: Sodium 128 L, Potassium 3.0 L, Chloride 89 L, Carbon Dioxide 14.0 L, Anion Gap 25 H, BUN 55 H, Creatinine 10.90 H*, Estim Creat Clear Calc 7.84, Est GFR (MDRD) Af Amer 6 L, Est GFR (MDRD) Non-Af 5 L, BUN/Creatinine Ratio 5.0 L, Glucose 257 H, Calcium 9.7, Total Bilirubin 0.40, AST 38 H, ALT 29,Alkaline Phosphatase 152 H, Total Protein 10.8 H, Albumin 4.8, Globulin 6.0 H, Albumin/Globulin Ratio 0.8 L 11/09/22 02:31: Ethyl Alcohol Cancelled 11/09/22 02:31: Magnesium 0.5 L* 11/09/22 02:50: Ammonia 28.0 11/09/22 02:50: Lactic Acid 8.5 H* 11/09/22 03:00: Urine Color Yellow, Urine Clarity Clear, Urine pH 5.0, Ur Specific Courtland 1.030, Urine Protein 30 H, Urine Glucose (UA) Normal, Urine Ketones Negative, Urine Occult Blood 10 H, Urine Nitrite Negative, Urine Bilirubin 3 H, Urine Urobilinogen Normal, Ur Leukocyte Esterase 25 H, Urine RBC 0-5 SEEN, Urine WBC 0-5 SEEN, Ur Squamous Epith Cells 0 SEEN, Urine Bacteria RARE, Hyaline Casts 0-5 SEEN, Urine Mucus 0 SEEN 11/09/22 03:55: Ethyl Alcohol < 3.0 11/09/22 06:30: Hemoglobin A1c 5.1 11/09/22 06:30: Hgb 14.7, Hct 46.4 11/09/22 08:47: Lactic Acid 1.1 11/09/22 08:47: Troponin I High Sens 9, Lipase 295 Micro: Microbiology 11/09/22 08:45 Stool Enteric Bacteriology - Final 11/09/22 06:30 Stool Stool Lactoferrin - Final 11/09/22 02:31 Nasal Secretion SARS-CoV-2 & FLU Antigen (Rapid) - Final ABG Data ABG results: ABG 11/09/22 02:57 Specimen Type YAO VBG pH 7.17 L* VBG pO2 40 VBG HCO3 13 L VBG Total CO2 14 L VBG O2 Sat (Calc) 61 VBG Base Excess -16 L POC Mix VBG pCO2 Pt Tmp 36.3 L O2 Delivery Device NRB Crit Call To/Read Back Yes Blood Gas Notified Whom mukherjee Blood Gas Notified Time 02:59:16 Rhythm Strip Rhythm Strip: Sinus Tach Rate: 114 Ectopy: None Radiology Impression Brain CT 11/09/22 02:30 IMPRESSION: 1. No acute intracranial abnormality. 2. Mucosal thickening right maxillary sinus. Electronically Signed: Michael Easley MD at 3:26 EDT , Chest X-Ray 11/09/22 03:10 IMPRESSION: No acute cardiopulmonary abnormality. Electronically Signed: Michael Easley MD at 3:29 EDT , KUB X-Ray 11/09/22 06:00 IMPRESSION: Prominent stomach with thickened rugal folds. Findings may indicate gastritis or an infiltrative process. Consider follow-up with upper endoscopy. Electronically Signed: Gary Mcgraw MD at 7:00 EDT , Renal Ultrasound 11/09/22 07:00 IMPRESSION: Normal ultrasound of the kidneys. A Maciel catheter is seen within an empty urinary bladder. Electronically Signed: Anmol Muhammad MD at 10:49 EDT , Assessment & Plan Assessment/Plan (1) Abnormal CT scan: PLAN: Differential diagnosis with thickening in the stomach is infiltrative process, portal gastropathy, alcoholic associated gastritis, peptic ulcer disease. He should undergo an upper endoscopy to evaluate his upper GI tract. Recommend PPI 40 mg of Protonix IV every 12 hours. (2) Alcoholism: PLAN: Patient is not showing any signs of delirium tremens at this time. He is on CIWA protocol. Check electrolytes and replete accordingly. Charges/Coding Visit Charges Inpatient E&M: 58619 Init Hosp L3 11/09/22 1857 <Electronically signed by Gino Briscoe DO> Cosigner Signature (if applicable): CC: Dr. Rickey Brown MD; Dr. Zia Osman MD; Dr. Reed Espana MD; Dr. Jama Garner MD~ Signed [facility] Work Phone: [phone]) 368-964904-03-[address] Zacarias [facility] November 09, 2022 5:48pm Note Date/Time November 09, 2022 5:[address] [facility] Medical Records Department [address] [place] [address] Progress Note 11/09/22 1656 MR#: [id number] Acct: [id number] Name: HANSEL LOVE Jr. Rep #:[id number] : 1970 52 From: Cally Zacarias MD PCP: Dr. Zia Osman MD Status:AD M IN Location: ICU ICU05-1 Subjective Subjective Patient seen and examined. He would not really answer any questions and just kept saying he wanted to be changed. Previous nurse, this was pretty much similar to what he had been doing during this admission. He remains hypotensive,and febrile as well as tachypneic and tachycardic. He is on 2L of oxygen Objective Data Objective Data Vital Signs: Vital Signs Temp Pulse Resp BP Pulse Ox O2 Del Method O2 Flow Rate 99.5 F H 127 H 23 H 92/59 L 99 Nasal Cannula 2 11/09/22 16:00 11/09/22 16:00 11/09/22 16:00 11/09/22 16:00 11/09/22 16:00 11/09/22 16:00 11/09/22 16:00 Oxygen Flow Rate (L/min) 2 Oxygen Delivery Method Nasal Cannula Weight: 181 lb 7.047 oz Body Mass Index (BMI) 26.8 Intake & Output: Intake and Output for Last 24 Hours 11/07/22 11/08/22 11/09/22 23:59 23:59 23:59 Intake Total 4682.3 / 4682.3 Output Total 25 / 25 Balance 4657.3 / 4657.3 Lab / Micro Data Result Diagrams: 11/09/22 06:30 11/09/22 02:31 Labs: Laboratory Results - last 24 hr 11/09/22 02:30: POC Glucose 183 H 11/09/22 02:31: WBC 21.9 H, RBC 4.55 L, Hgb 15.1, Hct 46.4, MCV 102.0 H, MCH 33.2 H, MCHC 32.5, RDW Std Deviation 49.1 H, RDW Coeff of Oleksandr 13.1, Plt Count 802 H*, MPV 10.0, Immature Gran % (Auto) 3.400 H, Neut % (Auto) 84.5 H, Lymph % (Auto) 8.2 L, Morton % (Auto) 2.8, Eos % (Auto) 0.2, Baso % (Auto) 0.9, Absolute Neuts (auto) 18.5 H, Absolute Lymphs (auto) 1.80, Nucleated RBC % 0, Diff Path Review Reviewed, Platelet Estimate MKD INC, Macrocytosis 1+ 11/09/22 02:31: PT 14.6, INR 1.2, APTT 29.2 11/09/22 02:31: Sodium 128 L, Potassium 3.0 L, Chloride 89 L, Carbon Dioxide 14.0 L, Anion Gap 25 H, BUN 55 H, Creatinine 10.90 H*, Estim Creat Clear Calc 7.84, Est GFR (MDRD) Af Amer 6 L, Est GFR (MDRD) Non-Af 5 L, BUN/Creatinine Ratio 5.0 L, Glucose 257 H, Calcium 9.7, Total Bilirubin 0.40, AST 38 H, ALT 29,Alkaline Phosphatase 152 H, Total Protein 10.8 H, Albumin 4.8, Globulin 6.0 H, Albumin/Globulin Ratio 0.8 L 11/09/22 02:31: Ethyl Alcohol Cancelled 11/09/22 02:31: Magnesium 0.5 L* 11/09/22 02:50: Ammonia 28.0 11/09/22 02:50: Lactic Acid 8.5 H* 11/09/22 03:00: Urine Color Yellow, Urine Clarity Clear, Urine pH 5.0, Ur Specific Court[place] 1.030, Urine Protein 30 H, Urine Glucose (UA) Normal, Urine Ketones Negative, Urine Occult Blood 10 H, Urine Nitrite Negative, Urine Bilirubin 3 H, Urine Urobilinogen Normal, Ur Leukocyte Esterase 25 H, Urine RBC 0-5 SEEN, Urine WBC 0-5 SEEN, Ur Squamous Epith Cells 0 SEEN, Urine Bacteria RARE, Hyaline Casts 0-5 SEEN, Urine Mucus 0 SEEN 11/09/22 03:55: Ethyl Alcohol < 3.0 11/09/22 06:30: Hemoglobin A1c 5.1 11/09/22 06:30: Hgb 14.7, Hct 46.4 11/09/22 08:47: Lactic Acid 1.1 11/09/22 08:47: Troponin I High Sens 9, Lipase 295 Micro: Microbiology 11/09/22 08:45 Stool Enteric Bacteriology - Final 11/09/22 06:30 Stool Stool Lactoferrin - Final 11/09/22 02:31 Nasal Secretion SARS-CoV-2 & FLU Antigen (Rapid) - Final ABG Data ABG results: ABG 11/09/22 02:57 Specimen Type YAO VBG pH 7.17 L* VBG pO2 40 VBG HCO3 13 L VBG Total CO2 14 L VBG O2 Sat (Calc) 61 VBG Base Excess -16 L POC Mix VBG pCO2 Pt Tmp 36.3 L O2 Delivery Device NRB Crit Call To/Read Back Yes Blood Gas Notified Whom valerie Blood Gas Notified Time 02:59:16 Radiography Diagnostic Testing: Radiology Impression Brain CT 11/09/22 02:30 IMPRESSION: 1. No acute intracranial abnormality. 2. Mucosal thickening right maxillary sinus. Electronically Signed: Michael Easley MD at 3:26 EDT , Chest X-Ray 11/09/22 03:10 IMPRESSION: No acute cardiopulmonary abnormality. Electronically Signed: Michael Easley MD at 3:29 EDT , KUB X-Ray 11/09/22 06:00 IMPRESSION: Prominent stomach with thickened rugal folds. Findings may indicate gastritis or an infiltrative process. Consider follow-up with upper endoscopy. Electronically Signed: Gary Mcgraw MD at 7:00 EDT , Renal Ultrasound 11/09/22 07:00 IMPRESSION: Normal ultrasound of the kidneys. A Maciel catheter is seen within an empty urinary bladder. Electronically Signed: Anmol Muhammad MD at 10:49 EDT , Rhythm Strip Rhythm Strip: Sinus Tach Rate: 114 Ectopy: None Physical Exam Const alert Constitutional Narrative: restless, not very cooperative with answering questions HEENT normocephalic, head/scalp atraumatic and moist oral mucous membranes Eyes PERRL and EOMs intact bilaterally Neck supple and no JVD Lymph Lymphatic: no lymphadenopathy noted and no lymphedema noted Resp Resp Narrative: mildly diminished breath sounds bibasally. Tachypneic. No wheezes or crackles. Cardio regular rhythm, S1 normal heart sound, S2 normal heart sound and no murmurs Cardio Narrative: tachypneic GI normal to inspection, nondistended, normoactive bowel sounds, soft to palpation,non-tender and non-distended Extremity normal capillary refill, no clubbing, cyanosis or edema and no calf tenderness General Extremity: no tenderness to palpation of joints or extremities Skin General Skin Exam: no breakdown Neuro CN's II-XII intact bilaterally, no focal motor deficits, no sensory deficits noted and deep tendon reflexes 2+ bilaterally Psych Psych Narrative: restless Assessment & Plan Assessment/Plan (1) Sepsis: (2) Hypokalemia: (3) Acute alteration in mental status: (4) Acute hypotension: (5) Seizure in response to acute event: PLAN: Plan #Sepsis * Patient was hypotensive on admission but this responded a bit to IV fluids. His blood pressure once in the 90s but MAP is more than 65 * He remains tachypneic and tachycardic and has elevated white cell count. Lactic acid was slightly elevated at more than 8.5. * On IV Zosyn. Critical care on board. * #Seizure: * Thought to be due to alcohol withdrawal versus infection. * CT of the brain showed mucosal thickening of the right maxillary sinuses but did not show any other acute intracranial pathology. * EEG ordered. * IV Ativan as needed #Hyponatremia: Sodium was 128 on admission. Nephrology consulted. #BLUE: Creatinine was 10 on admission. Baseline creatinine is less than 1. Nephrology consulted. Likely prerenal. Being hydrated with IV fluids. Will monitor. #Anion gap metabolic acidosis: Likely due to lactic acid and uremia. Been hydrated with IV fluids. Nephrology consulted. Anion gap is 25. #Elevated liver enzymes * Liver enzymes only minimally elevated. Will monitor. #History of chronic alcohol use disorder * At risk of withdrawal. On CIWA protocol with Ativan. On thiamine and folic acid as well as multivitamin. #Hypomagnesemia and hypokalemia: will replace aggressively and trend. Hypertension: Hold BP meds on account of hypotension. #Thrombocytosis: Platelets are up to 822. Will monitor. #DVT prophylaxis: SCDs. Charges/Coding Visit Charges Inpatient E&M: 96250 Rust Hosp L3 11/09/22 7625 <Electronically signed by Cally Zacarias MD> Cally Zacarias MD Cosigner Signature (if applicable): CC: ~ Signed [facility] Work Phone: 1(712) 170-162004-03-[address] Brown [facility] November 09, 2022 3:01pm Note Date/Time November 09, 2022 2:[address] [facility] Medical Records Department [address] [place] [address] Consultation - Nephrology 11/09/22 1429 MR#: [id number] Acct: [id number] Name: HANSEL LOVE Jr. Rep #:[id number] : 1970 52 From: Sarahi yeager NP-C PCP: Dr. Zia Osman MD Status:AD M IN Location: ICU ICU05-1 Assessment & Plan Assessment/Plan (1) Acute kidney failure: (2) Acute encephalopathy: (3) Hypokalemia: (4) Alcohol abuse, daily use: PLAN: Plan This is a 52-year-old male with past medical history significant for hypertension, GERD, depression, alcohol abuse who was brought to the emergency room via squad for evaluation of multiple falls, nausea, vomiting, diarrhea and seizure-like activity per squad. CT brain did not show any acute abnormality, chest x-ray clear. Renal ultrasound did not show any hydronephrosis, Maciel catheter was seen within an empty urinary bladder. We were consulted for acute kidney injury. Serum creatinine was 10.90 mg/dL on admission. In reviewing patient's past serum creatinine trends, likely baseline creatinine ranging around 0.8 to 1 mg/dL as of April 2022. BLUE is likely multifactorial from significant volume depletion with concurrent lisinopril/hydrochlorothiazide use,alcohol use, possible NSAIDs (home med list lists meloxicam); also to note bloodpressures were low on admission, systolic blood pressure in the 70s which may also be contributing to BLUE. Though patient is having difficult time recalling recent events, no significant uremia noted. Potassium and Magnesium were low and replacements have been given. Bicarb slightly low but at this time there isno urgent need for JITNEY DRIVER. Maciel catheter was placed with very scant amount of urine in tubing however patient is complaining of urgency, the feeling that he has to void and tenderness at suprapubic area therefore we will flush Maciel catheter. Continue to monitor strict I and O. Continue on IVF as ordered. In speaking with nursing staff, though IV fluids/boluses were ordered on admission at this time patient has received about a total of 1.5 L. Patient does appear hypovolemic on exam and recommend to continue with volume expansion. [id number] protein, 10 occult blood, 25 leukocyte esterase. Blood cultures are pending. White count was 21.9 on admission and patient is on IV antibiotics, Zosyn. Blood pressures are low but have improved since admission. He is not on any antihypertensives or IV pressors. Recommend avoiding nephrotoxic agents. Labs have been ordered for the morning. Further orders forthcoming as hospitalization evolves, thank you for allowing us participate in the care of Mr. Love. HPI Consult Data Date of Consult: 11/09/22 HPI Narrative HPI Narrative: HANSEL LOVE, is a 52 M with past medical history significant for hypertension, GERD, depression, alcohol abuse who was brought to the emergency room early this morning for evaluation of recent nausea, vomiting, diarrhea and falling at home. In the ER work-up included CT of brain which did not show any acute intracranial abnormality, chest x-ray clear, lab work demonstrated creatinine of 10.9, lactic acid 8.5. Patient was admitted to ICU for gastroenteritis, acute kidney injury, seizure-like activity per squad. We were consulted for acute kidney injury. Patient is alert to name but having a difficult time recalling recent events. Most of information is gathered from chart and nursing staff. Apparently patient had been feeling unwell for some time, having nausea, vomiting and diarrhea. Per patient's daughter in the emergency room apparently patient drinks at least 6 beers per day. Unknown if patient had been taking any NSAIDs. On patient's medication list is listed meloxicam. [facility] Medical History Acute encephalopathy Alcohol abuse, daily use Depression GERD (gastroesophageal reflux disease) HTN (hypertension) Perianal abscess Serotonin syndrome Serotonin syndrome Smoker Urinary retention due to benign prostatic hyperplasia Home Medications omeprazole 40 mg capsule,delayed release 40 mg PO DAILY REFLUX 07/04/15 [History Last Taken 05/30/18] lisinopril 20 mg-hydrochlorothiazide 12.5 mg tablet 1 tab PO DAILY BLOOD PRESSURE 06/17/17 [History Last Taken 05/30/18] finasteride 5 mg tablet 5 mg PO DAILY #30 tabs 06/20/17 [Rx Last Taken 05/30/18] magnesium oxide 400 mg (241.3 mg magnesium) tablet 400 mg PO BIDCM SUPPLEMENT 06/29/17 [History Last Taken 05/30/18] tamsulosin 0.4 mg capsule 0.4 mg PO DAILY@1730 PROSTATE 06/29/17 [History Last Taken 05/30/18] vitamin B12 500 mcg-folic acid 400 mcg tablet 1 tab PO QDAY 01/04/18 [History Last Taken 05/30/18] meloxicam 15 mg tablet 15 mg PO DAILY #21 tabs 09/14/22 [Rx Last Taken Unknown] Allergy/AdvReac Type Severity Reaction Status Date / Time Penicillins Allergy Unknown Verified 11/09/22 02:49 fluoxetine [From Prozac] AdvReac Other Verified 11/09/22 02:49 Family History Sister Diabetes Heart disease Mother CAD (coronary artery disease) Surgical History S/P right knee arthroscopy S/P tonsillectomy Social History Smoking Status: Current every day smoker tobacco type: cigarettes alcohol intake: current alcohol intake frequency: holidays/special occasions only ROS ROS Narrative Unable to obtain Physical Exam Narrative Alert to name. No apparent distress. Having a difficult time recalling recent events. Follows simple commands. S1, S2, rhythm and rate regular. Rate tachycardic Lung sounds clear anteriorly and posteriorly. No wheezes, rhonchi or rales noted Abdomen soft, positive bowel sounds x4 quadrants, hypoactive. Lower abdomen painful to touch. No edema noted to bilateral lower legs, feet, hands Indwelling Maciel catheter with clear, scant urine in tubing Lab / Micro Data Result Diagrams: 11/09/22 06:30 11/09/22 02:31 Labs: Laboratory Results - last 24 hr 11/09/22 02:30: POC Glucose 183 H 11/09/22 02:31: WBC 21.9 H, RBC 4.55 L, Hgb 15.1, Hct 46.4, MCV 102.0 H, MCH 33.2 H, MCHC 32.5, RDW Std Deviation 49.1 H, RDW Coeff of Oleksandr 13.1, Plt Count 802 H*, MPV 10.0, Immature Gran % (Auto) 3.400 H, Neut % (Auto) 84.5 H, Lymph % (Auto) 8.2 L, Morton % (Auto) 2.8, Eos % (Auto) 0.2, Baso % (Auto) 0.9, Absolute Neuts (auto) 18.5 H, Absolute Lymphs (auto) 1.80, Nucleated RBC % 0, Diff Path Review Reviewed, Platelet Estimate MKD INC, Macrocytosis 1+ 11/09/22 02:31: PT 14.6, INR 1.2, APTT 29.2 11/09/22 02:31: Sodium 128 L, Potassium 3.0 L, Chloride 89 L, Carbon Dioxide 14.0 L, Anion Gap 25 H, BUN 55 H, Creatinine 10.90 H*, Estim Creat Clear Calc 7.84, Est GFR (MDRD) Af Amer 6 L, Est GFR (MDRD) Non-Af 5 L, BUN/Creatinine Ratio 5.0 L, Glucose 257 H, Calcium 9.7, Total Bilirubin 0.40, AST 38 H, ALT 29,Alkaline Phosphatase 152 H, Total Protein 10.8 H, Albumin 4.8, Globulin 6.0 H, Albumin/Globulin Ratio 0.8 L 11/09/22 02:31: Ethyl Alcohol Cancelled 11/09/22 02:31: Magnesium 0.5 L* 11/09/22 02:50: Ammonia 28.0 11/09/22 02:50: Lactic Acid 8.5 H* 11/09/22 03:00: Urine Color Yellow, Urine Clarity Clear, Urine pH 5.0, Ur Specific Courtland 1.030, Urine Protein 30 H, Urine Glucose (UA) Normal, Urine Ketones Negative, Urine Occult Blood 10 H, Urine Nitrite Negative, Urine Bilirubin 3 H, Urine Urobilinogen Normal, Ur Leukocyte Esterase 25 H, Urine RBC 0-5 SEEN, Urine WBC 0-5 SEEN, Ur Squamous Epith Cells 0 SEEN, Urine Bacteria RARE, Hyaline Casts 0-5 SEEN, Urine Mucus 0 SEEN 11/09/22 03:55: Ethyl Alcohol < 3.0 11/09/22 06:30: Hemoglobin A1c 5.1 11/09/22 06:30: Hgb 14.7, Hct 46.4 11/09/22 08:47: Lactic Acid 1.1 11/09/22 08:47: Troponin I High Sens 9, Lipase 295 Micro: Microbiology 11/09/22 08:45 Stool Enteric Bacteriology - Final 11/09/22 06:30 Stool Stool Lactoferrin - Final 11/09/22 02:31 Nasal Secretion SARS-CoV-2 & FLU Antigen (Rapid) - Final ABG Data ABG results: ABG 11/09/22 02:57 Specimen Type YAO VBG pH 7.17 L* VBG pO2 40 VBG HCO3 13 L VBG Total CO2 14 L VBG O2 Sat (Calc) 61 VBG Base Excess -16 L POC Mix VBG pCO2 Pt Tmp 36.3 L O2 Delivery Device NRB Crit Call To/Read Back Yes Blood Gas Notified Whom mukherjee Blood Gas Notified Time 02:59:16 Rhythm Strip Rhythm Strip: Sinus Tach Rate: 114 Ectopy: None Radiology Impression Brain CT 11/09/22 02:30 IMPRESSION: 1. No acute intracranial abnormality. 2. Mucosal thickening right maxillary sinus. Electronically Signed: Michael Easley MD at 3:26 EDT , Chest X-Ray 11/09/22 03:10 IMPRESSION: No acute cardiopulmonary abnormality. Electronically Signed: Michael Easley MD at 3:29 EDT , KUB X-Ray 11/09/22 06:00 IMPRESSION: Prominent stomach with thickened rugal folds. Findings may indicate gastritis or an infiltrative process. Consider follow-up with upper endoscopy. Electronically Signed: Gary Mcgraw MD at 7:00 EDT , Renal Ultrasound 11/09/22 07:00 IMPRESSION: Normal ultrasound of the kidneys. A Maciel catheter is seen within an empty urinary bladder. Electronically Signed: Anmol uMhammad MD at 10:49 EDT , 11/09/22 1450 <Electronically signed by Sarahi RANDHAWA> Cosigner Signature (if applicable): 11/09/22 1501 <Electronically signed by Rickey Brown MD> CC: Dr. Rickey Brown MD; Dr. Zia Osman MD; Dr. Reed Espana MD; Dr. Jama Garner MD~ Signed [facility] Work Phone: [phone]) [phone] Mukherjee [facility] November 09, 2022 10:21am Note Date/Time November 09, 2022 2:[address] [facility] Medical Records Department [address] [place] [address] Emergency Department Summary 11/09/22 MR#: [id number] Acct: [id number] Name: HANSEL LOVE Jr. Rep #:[id number] : 1970 52 From: Ken Mukherjee MD PCP: Dr. Zia Osman MD Status:AD M IN Location: ICU ICU-1 [facility] History of Present Illness Chief Complaint: Seizure Informant: patient and family Onset/Context/Timing Onset: Days Context: Gradual Onset Timing: Continuous Current Severity: Moderate Maximum Severity: Moderate Narrative Narrative: 52-year-old male history of a prior encephalopathy, prior alcohol abuse but his daughter states he did not drink as often now, hypertension serotonin syndrome. Patient lives with his mother. Mother recently had COVID. He has not been feeling well for a week. Unable to get any history from him according to his daughter he has been sick with nausea and vomiting. Also diarrhea. He has had 4 falls in the last 24 hours. Squad was called on their arrival and was on the floor and had a 45- second tonic-clonic seizure for the ayden and the daughter. No prior history of seizures. Prior similar symptoms: No Recent Illness/Hospitalization: No [facility] Medical History Acute encephalopathy Alcohol abuse, daily use Depression GERD (gastroesophageal reflux disease) HTN (hypertension) Perianal abscess Serotonin syndrome Serotonin syndrome Smoker Urinary retention due to benign prostatic hyperplasia Home Medications omeprazole 40 mg capsule,delayed release 40 mg PO DAILY REFLUX 07/04/15 [History Last Taken 05/30/18] lisinopril 20 mg-hydrochlorothiazide 12.5 mg tablet 1 tab PO DAILY BLOOD PRESSURE 06/17/17 [History Last Taken 05/30/18] finasteride 5 mg tablet 5 mg PO DAILY #30 tabs 06/20/17 [Rx Last Taken 05/30/18] magnesium oxide 400 mg (241.3 mg magnesium) tablet 400 mg PO BIDCM SUPPLEMENT 06/29/17 [History Last Taken 05/30/18] tamsulosin 0.4 mg capsule 0.4 mg PO DAILY@1730 PROSTATE 06/29/17 [History Last Taken 05/30/18] vitamin B12 500 mcg-folic acid 400 mcg tablet 1 tab PO QDAY 01/04/18 [History Last Taken 05/30/18] meloxicam 15 mg tablet 15 mg PO DAILY #21 tabs 09/14/22 [Rx Last Taken Unknown] Allergy/AdvReac Type Severity Reaction Status Date / Time Penicillins Allergy Unknown Verified 11/09/22 02:49 fluoxetine [From Prozac] AdvReac Other Verified 11/09/22 02:49 Family History Sister Diabetes Heart disease Mother CAD (coronary artery disease) Surgical History S/P right knee arthroscopy S/P tonsillectomy Social History Smoking Status: Current every day smoker tobacco type: cigarettes alcohol intake: current alcohol intake frequency: holidays/special occasions only ROS ROS ED ROS Narrative Nausea, vomiting and diarrhea. Falls. Review of Systems ROS Unobtainable: due to encephalopathy and due to mental status Constitutional Constitutional ED: Reports fever(s) Eyes Eyes: Denies blurry vision ENT ENT ED: Denies ear pain, rhinorrhea or sore throat Cardiovascular Cardiovascular: Denies chest pain Respiratory/Chest Respiratory/Chest: Denies cough or dyspnea Gastrointestinal Gastrointestinal: Reports diarrhea, nausea and vomiting; Denies abdominal pain, constipation or melena Genitourinary Genitourinary ED: Denies dysuria Musculoskeletal Musculoskeletal: Denies arthralgias Integumentary Denies abscess Neurologic Neurologic: Denies headache(s) Psychiatric Psychiatric: Denies anxiety Endocrine Endocrinology: Denies cold intolerance Hematologic/Lymphatic Hematologic/Lymphatic: Reports none Allergic/Immunologic Allergic/Immunologic ED: Denies mouth swelling or tongue swelling EXAM Physical Exam Narrative Exam Narrative: 52-year-old male he is hypotensive at 77/52. Afebrile 96 4. Pulse ox 90% on 6 L he is hypoxic. Clinically looks dehydrated. He may be septic. He has a decreased mental status but his eyes are open. He is moving all 4 extremities. He is a very limited informant. He follows limited commands. Daughter is at bedside. H EENT exam pupils round reactive light. No signs of trauma to his face or head. Dry mucous membranes. Neck nontender trachea midline. Lungs clear to auscultation bilaterally. Heart tachycardic rate about 120 no murmur. Chest wall nontender. Abdomen soft nontender. Nondistended. No signs of bruising. Pelvic girdle intact. Moving all 4 extremities. Nontender no deformity. No bruising. Neurologically his eyes are open. He is moving all 4 extremities. There is no focal motor deficits. He follows limited commands. He is really not much of an informant at this time. Const Vital Signs: 11/09/22 02:19 11/09/22 02:26 11/09/22 02:45 Temperature 96.4 F L 96.4 F L 96.4 F L Temperature Source Temporal Temporal Temporal Pulse Rate 121 H 119 H 109 H Respiratory Rate 38 H 38 H 22 H Blood Pressure 77/52 L 77/52 L 72/44 L Blood Pressure Mean 60 60 53 Pulse Ox 90 98 Oxygen Delivery Method Non-Rebreather Nasal Cannula Non-Rebreather Oxygen Flow Rate (L/min) 6 15 11/09/22 03:00 11/09/22 03:18 11/09/22 03:35 Temperature 96.5 F L 96.3 F L Temperature Source Core Core Pulse Rate 106 H 106 H Respiratory Rate 97 H 23 H Blood Pressure 84/54 L 84/50 L 99/53 L Blood Pressure Mean 64 61 68 Pulse Ox 19 100 Oxygen Delivery Method Room Air Non-Rebreather Oxygen Flow Rate (L/min) 15 Positive well nourished and well developed; Negative for obese, cachectic, contractures or unkempt General Appearance ED: well developed and pallor; Negative for unkempt, cachectic, contractures, cyanotic, diaphoretic or NAD Nutritional Appearance: Negative for cachectic or obese HEENT Reports dry mucous membranes; Denies moist mucous membranes Negative for trauma or tenderness Mouth ED: Yes dry mucous membranes Mouth: dry mucous membranes Eyes PERRL and EOMs intact bilaterally General Eye ED: Negative for pale conjunctiva or scleral icterus Neck no lymphadenopathy, supple and no JVD General: Negative for tenderness Lymph Lymphatic: Negative for other Chest Wall inspection of chest normal and palpation of chest normal Chest: Negative for other Resp normal respiratory effort and clear to auscultation bilaterally Effort and Inspection: Negative for retractions Auscultation: Negative for rales, rhonchi or wheezes Cardio regular rhythm, S1 normal heart sound, S2 normal heart sound and no murmurs; Negative for regular rate Rate: tachycardic GI normal to inspection, nondistended, normoactive bowel sounds, non-tender, non-distended and no masses Inspection: Negative for abdominal distention Auscultation: normoactive bowel sounds Palpation: soft; Negative for tender or guarding Bladder / Kidney Exam: No other Back/Spine no CVA tenderness General Back: Negative for CVA tenderness Cervical Spine: Negative for cervical spine tenderness Thoracic Spine / Upper Back: Negative for thoracic spinal tenderness Lumbar Spine / Lower Back: Negative for lumbar spinal tenderness Extremity normal to inspection General Extremety ED: Negative for edema or tenderness General Extremity: Negative for edema Neuro No oriented x3 Sensorium / Orientation: alert, orientation impaired and lethargic Motor Exam: strength 5/5 throughout Psych mental status grossly normal Appearance: Negative for unkempt Attitude: No agitated Mood & Affect: Negative for depressed, anxious or tearful Skin no rashes or lesions noted and no wounds General Skin Exam: pallor; Negative for jaundice Lesions: No lesion noted Rashes: No rashes noted Trauma: Negative for abrasion Wounds: Negative for wounds noted MDM MDM MDM Narrative Medical decision making narrative: 52-year-old male possibly septic. Clinically appears dehydrated. He is hypotensive. He is hypoxic. Has had multiple falls with a head injury and alsoseized tonight. His initial blood sugar was 183. 2 large-bore IVs to be started to be given 2 L of fluid. Undergo a septic work-up. Also his mother has COVID so he will be evaluated for COVID and influenza. He will need to be admitted. He will be given Ativan due to his agitation. Multiple repeat exams the most recent at 3:20 AM patient's blood pressure started to improve. He is sedated from the Ativan. His white count is elevated. His chest x-ray and CT of his brain are unremarkable awaiting formal radiology interpretation. Daughters at bedside have been keeping up-to-date on the labs. Nurses are providing one-to-one care. He is almost done with a second liter of fluid his current pressure systolically is 90. He is getting a 3 L of normal saline. Patient continues to improve is gotten 3 L of normal saline and is currently being started on the fourth. He will also be started on IV Zosyn due to his leukocytosis in case he has an underlying infection that we have not discovered as of yet. Blood and urine cultures are pending his UA and his chest x-ray wereunremarkable. He has been afebrile. He will definitely need to be admitted. Jaqueline speak to the hospitalist is currently admitting other patients when available. History & Record Review Discussion w/independent historian: EMS personnel, Patient and Family Lab Data Attestation: I reviewed the patient's lab results. Lab results narrative: See patient is a white count of 21.9. H&H of 15 and 46. Platelet count is elevated at 802,000. PT/INR PTT are normal. BG T183. CAT scan of the brain shows no acute abnormality on my initial wet read. Awaiting the formal radiologist's interpretation. Venous blood gas was obtained showed a pH of 7.16 PCO2 of 36, PO2 of 39. Saturation was 61% but again this is a venous gas. Rapid and COVID influenza swabs are both negative. PT and PTT are normal. Urinalysis is negative. No white nor red cells. No nitrites. No bacteria. Ammonia level is normal at 28. CHEM 3 shows sodium 128. Potassium of 3.0. BUN55 and creatinine 10.9 consistent with acute kidney failure. Patient's anion gap is elevated at 25. Glucose is 257. Labs: Laboratory Results - last 24 hr 11/09/22 11/09/22 11/09/22 02:30 02:31 02:31 WBC 21.9 H RBC 4.55 L Hgb 15.1 Hct 46.4 MCV 102.0 H MCH 33.2 H MCHC 32.5 RDW Std Deviation 49.1 H RDW Coeff of Oleksandr 13.1 Plt Count 802 H* MPV 10.0 Immature Gran % (Auto) 3.400 H Neut % (Auto) 84.5 H Lymph % (Auto) 8.2 L Morton % (Auto) 2.8 Eos % (Auto) 0.2 Baso % (Auto) 0.9 Absolute Neuts (auto) 18.5 H Absolute Lymphs (auto) 1.80 Nucleated RBC % 0 Diff Path Review May foll Platelet Estimate MKD INC Macrocytosis 1+ PT 14.6 INR 1.2 APTT 29.2 Sodium Potassium Chloride Carbon Dioxide Anion Gap BUN Creatinine Estim Creat Clear Calc Est GFR (MDRD) Af Amer Est GFR (MDRD) Non-Af BUN/Creatinine Ratio Glucose Lactic Acid Calcium Total Bilirubin AST ALT Alkaline Phosphatase Ammonia Total Protein Albumin Globulin Albumin/Globulin Ratio Urine Color Urine Clarity Urine pH Ur Specific [place] Urine Protein Urine Glucose (UA) Urine Ketones Urine Occult Blood Urine Nitrite Urine Bilirubin Urine Urobilinogen Ur Leukocyte Esterase Urine RBC Urine WBC Ur Squamous Epith Cells Urine Bacteria Hyaline Casts Urine Mucus POC Glucose 183 H 11/09/22 11/09/22 11/09/22 02:31 02:50 02:50 WBC RBC Hgb Hct MCV MCH MCHC RDW Std Deviation RDW Coeff of Oleksandr Plt Count MPV Immature Gran % (Auto) Neut % (Auto) Lymph % (Auto) Morton % (Auto) Eos % (Auto) Baso % (Auto) Absolute Neuts (auto) Absolute Lymphs (auto) Nucleated RBC % Diff Path Review Platelet Estimate Macrocytosis PT INR APTT Sodium 128 L Potassium 3.0 L Chloride 89 L Carbon Dioxide 14.0 L Anion Gap 25 H BUN 55 H Creatinine 10.90 H* Estim Creat Clear Calc 7.84 Est GFR (MDRD) Af Amer 6 L Est GFR (MDRD) Non-Af 5 L BUN/Creatinine Ratio 5.0 L Glucose 257 H Lactic Acid 8.5 H* Calcium 9.7 Total Bilirubin 0.40 AST 38 H ALT 29 Alkaline Phosphatase 152 H Ammonia 28.0 Total Protein 10.8 H Albumin 4.8 Globulin 6.0 H Albumin/Globulin Ratio 0.8 L Urine Color Urine Clarity Urine pH Ur Specific Court[place] Urine Protein Urine Glucose (UA) Urine Ketones Urine Occult Blood Urine Nitrite Urine Bilirubin Urine Urobilinogen Ur Leukocyte Esterase Urine RBC Urine WBC Ur Squamous Epith Cells Urine Bacteria Hyaline Casts Urine Mucus POC Glucose 11/09/22 03:00 WBC RBC Hgb Hct MCV MCH MCHC RDW Std Deviation RDW Coeff of Oleksandr Plt Count MPV Immature Gran % (Auto) Neut % (Auto) Lymph % (Auto) Morton % (Auto) Eos % (Auto) Baso % (Auto) Absolute Neuts (auto) Absolute Lymphs (auto) Nucleated RBC % Diff Path Review Platelet Estimate Macrocytosis PT INR APTT Sodium Potassium Chloride Carbon Dioxide Anion Gap BUN Creatinine Estim Creat Clear Calc Est GFR (MDRD) Af Amer Est GFR (MDRD) Non-Af BUN/Creatinine Ratio Glucose Lactic Acid Calcium Total Bilirubin AST ALT Alkaline Phosphatase Ammonia Total Protein Albumin Globulin Albumin/Globulin Ratio Urine Color Yellow Urine Clarity Clear Urine pH 5.0 Ur Specific Court[place] 1.030 Urine Protein 30 H Urine Glucose (UA) Normal Urine Ketones Negative Urine Occult Blood 10 H Urine Nitrite Negative Urine Bilirubin 3 H Urine Urobilinogen Normal Ur Leukocyte Esterase 25 H Urine RBC 0-5 SEEN Urine WBC 0-5 SEEN Ur Squamous Epith Cells 0 SEEN Urine Bacteria RARE Hyaline Casts 0-5 SEEN Urine Mucus 0 SEEN POC Glucose ABG Data ABG results: ABG 11/09/22 02:57 Specimen Type YAO VBG pH 7.17 L* VBG pO2 40 VBG HCO3 13 L VBG Total CO2 14 L VBG O2 Sat (Calc) 61 VBG Base Excess -16 L POC Mix VBG pCO2 Pt Tmp 36.3 L O2 Delivery Device NRB Crit Call To/Read Back Yes Blood Gas Notified Whom mukherjee Blood Gas Notified Time 02:59:16 Radiography Chest X-Ray - ED: 1 View, Read by ED Physician, Heart, Lungs, Mediastinum, Bony Structures, No Acute Disease and Chronic Changes Diagnostic Testing: Clinical Impression(s) from Imaging Studies Brain CT 11/09/22 02:30 IMPRESSION: 1. No acute intracranial abnormality. 2. Mucosal thickening right maxillary sinus. Electronically Signed: Michael Easley MD at 3:26 EDT , Chest X-Ray 11/09/22 03:10 IMPRESSION: No acute cardiopulmonary abnormality. Electronically Signed: Michael Easley MD at 3:29 EDT , Chest x-ray, portable, single view, interpreted by myself shows no acute abnormality. Normal cardiac silhouette. Normal mediastinum. No infiltrates. No pneumothorax. No obvious rib fractures. Radiologist also has evaluated the chest x-ray now and agrees. Rhythm Strip Rhythm Strip: Sinus Tach Rate: 114 Ectopy: None EKG Initial EKG: Attestation: I personally reviewed and interpreted this EKG as follows: Interpretation: Sinus Rhythm, No Acute Injury Pattern and Sinus Tachycardia Comments: Sinus tachycardia rate of 114. No acute signs of OH or ischemia. Differential Diagnosis Differential Diagnosis: Sepsis on variety of causes. COVID. Clinically is dehydrated. He is hypotensive and hypoxic. He has had falls. Critical Care Time Critical Care Time: Yes Critical care time (excluding procedures): 30-74 minutes, 75-104 minutes, Including time spent:, Discussing w/Patient &/or Family/Plater Production, Discussing w/Consultants, Arranging Admission or Transfer, Performing Direct Patient Care atBedside and - (35 min) Discharge Plan Dx/Rx/DC Orders Clinical Impression: Acute alteration in mental status, Acute encephalopathy, Acute hypotension, Acute dehydration, Falls, Hypoxia, Head injury, Seizure in response to acute event, Acute kidney failure, Metabolic acidosis, Acute lactic acidosis Disposition Disposition: [facility] What to do if you have Problems For any increased pain, shortness of breath, bleeding, nausea or vomiting, chestpain, or any unexpected problems, contact your Primary Care Provider. Call [facility] ([phone]) or report to the closest Emergency Room. Call 911 if necessary. 11/09/22 1021 <Electronically signed by Ken Mukherjee MD> Cosigner Signature (if applicable): CC: Dr. Zia Osman MD ~ Signed [facility] Work Phone: [phone]) 886-859404-03-[address] Espana [facility] November 09, 2022 8:10am Note Date/Time November 09, 2022 8:[address] [facility] Medical Records Department [address] [place] [address] Telemedicine Confirmation Receipt 11/09/22 MR#: [id number] Acct: [id number] Name: HANSEL LOVE JrCristhian Rep #: : [id number] From: Reed Espana MD PCP: Dr. Zia Osman MD Status:AD M IN [facility] has confirmed receipt of a request for visit. This document confirms receipt of the order initiating the consult. To find the results of the consultation, please view the patient's reports for the scanned Telemed Consult. [facility] Work Phone: [phone]) 915-779604-03-2023 History and physical note Author Dr. Espana [facility] November 09, 2022 6:28am Note Date/Time November 09, 2022 5:[address] [facility] Medical Records Department [address] [place] [address] H&P Exam - Hospitalist 11/09/22 0522 MR#: [id number] Acct: [id number] Name: HANSEL LOVE JrCristhian Rep #: : [id number] From: Reed Espana MD PCP: Dr. Zia Osman MD Status:AD M IN Location: ICU ICU05-1 HPI - General General Date of Admission: 11/09/22 Date of Service: 11/09/22 Chief Complaint: Nausea; vomiting diarrhea HPI Narrative HANSEL LOVE, is a 52 M with a significant history of alcoholism; BPH and hypertension who presented to the emergency department with a 2-week history of progressively worsening nausea, vomiting and diarrhea that started about 2 weeksago. Associated with his symptoms is lethargy. When paramedics went to pick patient patient up he had a tonic clonic seizures and became even more lethargicthereafter. Reportedly in the past patient has not had any seizures. Patient drinks alcohol a lot but her daughter thinks that in the past 48 before presentation patient has cut down. Per daughter patient drinks about 6 packs beer per day. Patient reported that he drinks about 6 packs beer about 2 times in a week. Two days before presentation patient fell 4 times. At the emergency department patient was found to have a poor urine output even after receiving 4 L of normal saline. Patient was found to have bloody loose bowel movements at the ED. History was taken predominantly from patient's daughter who was at the bedside. Only limited information was obtained from patient as he did not remember majority of the history. [facility] Medical History Acute encephalopathy Alcohol abuse, daily use Depression GERD (gastroesophageal reflux disease) HTN (hypertension) Perianal abscess Serotonin syndrome Serotonin syndrome Smoker Urinary retention due to benign prostatic hyperplasia Home Medications omeprazole 40 mg capsule,delayed release 40 mg PO DAILY REFLUX 07/04/15 [History Last Taken 05/30/18] lisinopril 20 mg-hydrochlorothiazide 12.5 mg tablet 1 tab PO DAILY BLOOD PRESSURE 06/17/17 [History Last Taken 05/30/18] finasteride 5 mg tablet 5 mg PO DAILY #30 tabs 06/20/17 [Rx Last Taken 05/30/18] magnesium oxide 400 mg (241.3 mg magnesium) tablet 400 mg PO BIDCM SUPPLEMENT 06/29/17 [History Last Taken 05/30/18] tamsulosin 0.4 mg capsule 0.4 mg PO DAILY@1730 PROSTATE 06/29/17 [History Last Taken 05/30/18] vitamin B12 500 mcg-folic acid 400 mcg tablet 1 tab PO QDAY 01/04/18 [History Last Taken 05/30/18] meloxicam 15 mg tablet 15 mg PO DAILY #21 tabs 09/14/22 [Rx Last Taken Unknown] Allergy/AdvReac Type Severity Reaction Status Date / Time Penicillins Allergy Unknown Verified 11/09/22 02:49 fluoxetine [From Prozac] AdvReac Other Verified 11/09/22 02:49 Family History Sister Diabetes Heart disease Mother CAD (coronary artery disease) Surgical History S/P right knee arthroscopy S/P tonsillectomy Social History Smoking Status: Current every day smoker tobacco type: cigarettes alcohol intake: current alcohol intake frequency: holidays/special occasions only ROS Review of Systems ROS Unobtainable: due to mental status Vital Signs Vital Signs Vital Signs: 11/09/22 02:19 11/09/22 02:26 11/09/22 02:45 Temperature 96.4 F L 96.4 F L 96.4 F L Temperature Source Temporal Temporal Temporal Pulse Rate 121 H 119 H 109 H Respiratory Rate 38 H 38 H 22 H Blood Pressure 77/52 L 77/52 L 72/44 L Blood Pressure Mean 60 60 53 Pulse Ox 90 98 Oxygen Delivery Method Non-Rebreather Nasal Cannula Non-Rebreather Oxygen Flow Rate (L/min) 6 15 11/09/22 03:00 11/09/22 03:18 11/09/22 03:35 Temperature 96.5 F L 96.3 F L Temperature Source Core Core Pulse Rate 106 H 106 H Respiratory Rate 97 H 23 H Blood Pressure 84/54 L 84/50 L 99/53 L Blood Pressure Mean 64 61 68 Pulse Ox 19 100 Oxygen Delivery Method Room Air Non-Rebreather Oxygen Flow Rate (L/min) 15 11/09/22 04:06 11/09/22 04:06 11/09/22 05:07 Temperature 98.4 F 98.5 F Temperature Source Temporal Temporal Pulse Rate 109 H 100 76 Respiratory Rate 20 H 27 H 18 Blood Pressure 86/62 L 86/62 L 95/53 L Blood Pressure Mean 70 70 67 Pulse Ox 99 100 98 Oxygen Delivery Method Non-Rebreather Room Air Oxygen Flow Rate (L/min) 11/09/22 05:07 11/09/22 05:08 Temperature 98.2 F 96.8 F L Temperature Source Temporal Core Pulse Rate 119 H Respiratory Rate 17 Blood Pressure 95/53 L Blood Pressure Mean 67 Pulse Ox 97 99 Oxygen Delivery Method Room Air Oxygen Flow Rate (L/min) Weight Weight: 87 kg Body Mass Index (BMI) 28.3 Physical Exam Narrative Physical exam: General: Well-nourished, well-developed. Head: Normocephalic, atraumatic, no tenderness Eyes: Vision is grossly intact. EOMI ENT, no trauma, no tongue laceration, no rhinorrhea Neck: Nontender, No thyromegaly. CVS: Regular rate and rhythm. S1-S2 present. No murmur, gallop or rub. Respiratory : clear to auscultation bilaterally, chest wall nontender Abdomen: Soft, nontender, nondistended, normal bowel sounds, no masses : Maciel catheter (placed in the ED) Back: Nontender, no CVA tenderness, no midline spinal tenderness, deformities, step-offs Extremities: Nontender full range of motion, no trauma Skin: Normal color, no trauma, abrasions Neuro: Alert, cranial nerves II through XII grossly intact. Psychiatry: Normal mood. Normal affect. Not depressed. Not anxious. Results Lab / Micro Data Result Diagrams: 11/09/22 02:31 11/09/22 02:31 Labs: Laboratory Results - last 24 hr 11/09/22 02:30: POC Glucose 183 H 11/09/22 02:31: WBC 21.9 H, RBC 4.55 L, Hgb 15.1, Hct 46.4, MCV 102.0 H, MCH 33.2 H, MCHC 32.5, RDW Std Deviation 49.1 H, RDW Coeff of Oleksandr 13.1, Plt Count 802 H*, MPV 10.0, Immature Gran % (Auto) 3.400 H, Neut % (Auto) 84.5 H, Lymph % (Auto) 8.2 L, Morton % (Auto) 2.8, Eos % (Auto) 0.2, Baso % (Auto) 0.9, Absolute Neuts (auto) 18.5 H, Absolute Lymphs (auto) 1.80, Nucleated RBC % 0, Diff Path Review May wild, Platelet Estimate MKD INC, Macrocytosis 1+ 11/09/22 02:31: PT 14.6, INR 1.2, APTT 29.2 11/09/22 02:31: Sodium 128 L, Potassium 3.0 L, Chloride 89 L, Carbon Dioxide 14.0 L, Anion Gap 25 H, BUN 55 H, Creatinine 10.90 H*, Estim Creat Clear Calc 7.84, Est GFR (MDRD) Af Amer 6 L, Est GFR (MDRD) Non-Af 5 L, BUN/Creatinine Ratio 5.0 L, Glucose 257 H, Calcium 9.7, Total Bilirubin 0.40, AST 38 H, ALT 29,Alkaline Phosphatase 152 H, Total Protein 10.8 H, Albumin 4.8, Globulin 6.0 H, Albumin/Globulin Ratio 0.8 L 11/09/22 02:31: Ethyl Alcohol Cancelled 11/09/22 02:50: Ammonia 28.0 11/09/22 02:50: Lactic Acid 8.5 H* 11/09/22 03:00: Urine Color Yellow, Urine Clarity Clear, Urine pH 5.0, Ur Specific [place] 1.030, Urine Protein 30 H, Urine Glucose (UA) Normal, Urine Ketones Negative, Urine Occult Blood 10 H, Urine Nitrite Negative, Urine Bilirubin 3 H, Urine Urobilinogen Normal, Ur Leukocyte Esterase 25 H, Urine RBC 0-5 SEEN, Urine WBC 0-5 SEEN, Ur Squamous Epith Cells 0 SEEN, Urine Bacteria RARE, Hyaline Casts 0-5 SEEN, Urine Mucus 0 SEEN 11/09/22 03:55: Ethyl Alcohol < 3.0 Micro: Microbiology 11/09/22 02:31 Nasal Secretion SARS-CoV-2 & FLU Antigen (Rapid) - Final ABG Data ABG results: ABG 11/09/22 02:57 Specimen Type YAO VBG pH 7.17 L* VBG pO2 40 VBG HCO3 13 L VBG Total CO2 14 L VBG O2 Sat (Calc) 61 VBG Base Excess -16 L POC Mix VBG pCO2 Pt Tmp 36.3 L O2 Delivery Device NRB Crit Call To/Read Back Yes Blood Gas Notified Whom mukherjee Blood Gas Notified Time 02:59:16 Rhythm Strip Rhythm Strip: Sinus Tach Rate: 114 Ectopy: None Radiology Impression Brain CT 11/09/22 02:30 IMPRESSION: 1. No acute intracranial abnormality. 2. Mucosal thickening right maxillary sinus. Electronically Signed: Michael Easley MD at 3:26 EDT , Chest X-Ray 11/09/22 03:10 IMPRESSION: No acute cardiopulmonary abnormality. Electronically Signed: Michael Easley MD at 3:29 EDT , Assessment & Plan Assessment/Plan (1) Septic shock: (2) Acute kidney failure: (3) Seizure in response to acute event: (4) Hypoxia: (5) Alcoholism: PLAN: Plan Septic shock The patient presented with sepsis due to (gastroenteritis) with acute sepsis related organ dysfunction as evidenced by (lactic acidosis; acute encephalopathy; acute kidney injury). Radiologist impression of chest x-ray:No acute cardiopulmonary abnormality. Chest x-ray was visualized and independently interpreted and I agree with radiology interpretation. Urinalysis was reviewed, unremarkable. SIRS criteria: Respiratory rate more than 20 Heart rate more than 90 WBC more than 21,900; trend Lactic acid of 8.5, trend. VBG showed pH of 7.17 Blood culture x2 ordered emergency department, follow. Received normal saline bolus prior septic shock protocol. Maintenance IV infusion continued. Zosyn started emergency department and continued. We will get a KUB. Stool studies ordered. Noted to have proteinemia of 10.8, trend CMP. Hold all home antihypertensive medication. Seizure Secondary to infection versus alcohol withdrawal. Brain CT per radiology interpretation: No acute intracranial normalities; mucosal thickening of the right maxillary sinus. Seizure precautions ordered. EEG ordered. As needed Ativan for seizures ordered. Hyponatremia Sodium of 128 on presentation. Likely secondary to hypovolemia; nausea and vomiting. IV hydration as above. Trend. Hypokalemia Potassium of 3.0. Like secondary to hypovolemia, nausea and vomiting. P.o. andIV replacement ordered. Check magnesium. BLUE Creatinine presentation was 10.90 with decreased urine output. Baseline creatinine is less than 1. BUN is 55; more than 3 times of baseline. BUN/CR 5; likely ATN. IV hydration ordered. Maciel catheter placed on the ED. Will get ultrasound of kidneys and bladder. Avoid nephrotoxins. Nephrology consult. Trend BMP and CMP. Anion gap metabolic acidosis Noted to have bicarbonate of 14; anion gap of 25. Like secondary to acute uremia and lactic acidosis. IV fluids and antibiotics as above. Hyperglycemia Glucose of 257 on BMP. Likely secondary to sepsis. Check A1c. Elevated liver biochemistry AST mildly elevated at 38, alkaline phosphatase slightly elevated at 152; ALT normal at 29. Secondary to alcoholism. Not indicative of shock liver. Trend CMP Alcoholism Placed on CIWA protocol with as needed Ativan. Folic acid and thiamine ordered. Hypoxia Require supplemental oxygenation with mask. Titrate oxygen as needed. Acute infectious or metabolic encephalopathy/post ictal state Improved DVT prophylaxis: With hemorrhagic diarrhea will avoid chemical thromboprophylaxis at this time. SCDs ordered. Sepsis Attestation Sepsis Alert: Yes Sepsis Attestation: Agree w/Sepsis Date exam was performed: 11/09/22 Time exam was performed: 05:45 Possible Source of Sepsis: GI tract/intra-abdominal Sepsis Organ Dysfunction Criteria Present: SBP < 90 mmHg or MAP < 65 mmHg, Creatinine > 2.0 mg/dL, UOP < 0.5 mL/kg/hour for 2 consecutive hours, Lactic Acid > 2 mmol/L, Serum CO2 < 20 mmol/L (on BMP) and New/Unexplained change in mental status Fluid Resuscitation Fluid Resuscitation ordered: 30 ml/kg fluid bolus ordered Sepsis Note Sepsis Attestation: Sepsis re-evaluation was performed Response to fluids: Fluid responsive hypotension Charges/Coding Visit Charges Inpatient E&M: 43021 Init Hosp 11/09/22627 <Electronically signed by Reed Espana MD> Cosigner Signature (if applicable): CC: Dr. Zia Osman MD; Dr. Reed Espana MD~ Signed [facility] Work Phone: [phone] 568-201012-28-2017 History of Past illness Narrative* Problem Noted Date Resolved Date Alcohol use 08/05/2017 08/05/2017 documented as of this encounter (statuses as of 01/05/2023) [facility]12-28-2017 History of Past illness Narrative* Problem Noted Date Resolved Date Alcohol use 08/05/2017 08/05/2017 documented as of this encounter (statuses as of 01/08/2023) [facility]12[facility]28-2017 History of Past illness Narrative* Problem Noted Date Resolved Date Alcohol use 08/05/2017 08/05/2017 documented as of this encounter (statuses as of 02/01/2023) [address]28-2017 History of Past illness Narrative* Problem Noted Date Diagnosed Date Resolved Date Alcohol use 08/05/2017 08/05/2017 documented as of this encounter (statuses as of 03/04/2023) [facility]12[facility]28-2017 History of Past illness Narrative* Problem Noted Date Diagnosed Date Resolved Date Alcohol use 08/05/2017 08/05/2017 documented as of this encounter (statuses as of 03/06/2023) [address]28-2017 History of Past illness Narrative* Problem Noted Date Diagnosed Date Resolved Date Alcohol use 08/05/2017 08/05/2017 documented as of this encounter (statuses as of 03/22/2023) [address]28-2017 History of Past illness Narrative* Problem Noted Date Diagnosed Date Resolved Date Alcohol use 08/05/2017 08/05/2017 documented as of this encounter (statuses as of 03/23/2023) [facility]12[facility]28-2017 History of Past illness Narrative* Problem Noted Date Diagnosed Date Resolved Date Alcohol use 08/05/2017 08/05/2017 documented as of this encounter (statuses as of 04/14/2023) [address]28-2017 History of Past illness Narrative* Problem Noted Date Diagnosed Date Resolved Date Alcohol use 08/05/2017 08/05/2017 documented as of this encounter (statuses as of 06/01/2023) [facility]12[facility]28[facility]2017 History of Past illness Narrative* Problem Noted Date Diagnosed Date Resolved Date Alcohol use 08/05/2017 08/05/2017 documented as of this encounter (statuses as of 06/08/2023) [address]28-2017 History of Past illness Narrative* Problem Noted Date Diagnosed Date Resolved Date Alcohol use 08/05/2017 08/05/2017 documented as of this encounter (statuses as of 07/08/2023) [address]28-2017 History of Past illness Narrative* Problem Noted Date Diagnosed Date Resolved Date Alcohol use 08/05/2017 08/05/2017 documented as of this encounter (statuses as of 09/10/2023) [address]28-2017 History of Past illness Narrative* Problem Noted Date Diagnosed Date Resolved Date Alcohol use 08/05/2017 08/05/2017 documented as of this encounter (statuses as of 09/10/2023) [address]2017 History of Past illness Narrative* Problem Noted Date Diagnosed Date Resolved Date Alcohol use 08/05/2017 08/05/2017 documented as of this encounter (statuses as of 09/13/2023) [facility]12[facility]28-2017 History of Past illness Narrative* Problem Noted Date Diagnosed Date Resolved Date Alcohol use 08/05/2017 08/05/2017 documented as of this encounter (statuses as of 09/20/2023) [facility]12[facility]28-2017 History of Past illness Narrative* Problem Noted Date Diagnosed Date Resolved Date Alcohol use 08/05/2017 08/05/2017 documented as of this encounter (statuses as of 09/29/2023) [facility]12[facility]28-2017 History of Past illness Narrative* Problem Noted Date Diagnosed Date Resolved Date Alcohol use 08/05/2017 08/05/2017 documented as of this encounter (statuses as of 09/29/2023) [facility]12[facility]28-2017 History of Past illness Narrative* Problem Noted Date Diagnosed Date Resolved Date Alcohol use 08/05/2017 08/05/2017 documented as of this encounter (statuses as of 10/25/2023) [facility]. Zacarias [facility] November 13, 2022 4:07pm Note Date/Time November 13, 2022 4:07 pm [facility] Medical Records Department [facility] [place] [address] Instructions for Home/Discharge Instructions 11/13/22 1607 MR#: [id number] Acct: [id number] Name: HANSEL LOVE Jr. Rep #:[id number] : 1970 52 From: Cally Zacarias MD PCP: Dr. Zia Osman MD Status:AD M IN Discharge Instructions Diet Discharge Diet: Low fat / Low cholesterol Activity Discharge Activity: Return to Normal Activity Weight Bearing Status: Weight bearing as tolerated Dressing / Incision Call your doctor if you observe: Fever of 101 or Higher, Shortness of breath, Dizziness, Swelling in the ankles, Chest pain and Increased palpitations (irregular heartbeat) Follow Up Care Test Results: Test results from this visit will be discussed in further detail at your follow- up appointment, if applicable. Discharge Plan Admission Admit Date/Time: 11/09/22 05:06 Primary Reason for Your Visit: Upper GI bleed, septic shock Attending Provider: Cally Zacarias Primary Care Provider: Zia Osman Consulting Providers: Jama Garner ; Reed Espana ; Rickey Brown Instructions Patient Instructions: ED Upper GI Bleeding (Stable) Discharge Orders/Prescriptions Prescriptions: New pantoprazole 40 mg tablet,delayed release (DR/EC) 40 mg PO BID Qty: 60 2RF sucralfate 1 gram tablet 1 g PO Q6H Qty: 120 1RF amlodipine 10 mg tablet 10 mg PO DAILY Qty: 30 2RF Continued vitamin B12 500 mcg-folic acid 400 mcg tablet 500-400 mcg tablet 1 tab PO QDAY meloxicam 15 mg tablet 15 mg PO DAILY Qty: 21 0RF omeprazole 40 MG capsule 40 mg PO DAILY Label Comments: GERD finasteride 5 MG tablet 5 mg PO DAILY Qty: 30 0RF magnesium oxide 400 MG tablet 400 mg PO BIDCM tamsulosin 0.4 MG capsule 0.4 mg PO DAILY@1730 Discontinued lisinopril-hydrochlorothiazide 1 TABLET tablet 1 tab PO DAILY Rx Instructions: 20/12.5mg Referrals / Follow Up: Rickey Brown MD [Med Staff - Consulting] - Within 2 Weeks Zia Osman MD [Primary Care Provider] - Within 2 Weeks Gino Briscoe DO [Med Staff - Active Staff] - Within 2 Weeks Disposition Disposition (needs filled in before D/C Order can be placed): Home, Self Care 11/13/22 1607<Electronically signed by Cally Zacarias MD>Cally Zacarias MD CC: Dr. Rickey Brown MD; Dr. Zia Osman MD; Dr. Reed Espana MD; Dr. Jama Garner MD ~ Signed [facility] Work Phone: Discharge summary Author Dr. Davidson [facility] November 19, 2022 12:53pm Note Date/Time November 19, 2022 12: 53pm [facility] Medical Records Department [address] [place] [address] Instructions for Home/Discharge Instructions 11/19/22 1252 MR#: [id number] Acct: [id number] Name: HANSEL LOVE Jr. Rep #:[id number] : 1970 52 From: Justa Davidson MD PCP: Dr. Zia Osman MD Status:AD M IN Discharge Instructions Diet Discharge Diet: No restrictions Activity Discharge Activity: Return to Normal Activity Follow Up Care Test Results: Test results from this visit will be discussed in further detail at your follow- up appointment, if applicable. Discharge Plan Admission Admit Date/Time: 11/17/22 16:41 Primary Reason for Your Visit: Abnormal lab values Attending Provider: Justa Davidson Primary Care Provider: Zia Osman Instructions Patient Instructions: Hypomagnesemia Dc Additional Instructions / Restrictions: DISCHARGE INSTRUCTIONS PLEASE READ *Please take this with you to your next doctors appointment* -Your magnesium supplementation has been increased to 800 mg twice daily, it is advised that you do not take this at the same time as your pantoprazole -Calcium citrate has also been sent to your preferred pharmacy on file as calcium citrate may be easier to absorb given that you are on pantoprazole. If this is too expensive you can take an equivalent alternate calcium supplement [id number] -Would recommend lab work (CMP and magnesium) to check your kidneys, calcium, and magnesium in 2 to 3 days through your primary care physician's office or 's office. Please call on the day of discharge to obtain an order for labwork, would recommend having this done on Wednesday at the latest. -You will need to follow-up with Dr. Briscoe with GI in his office upon discharge. Please call his office to schedule your hospital follow-up appointment (ph. [phone]) -Please call your primary care provider's office upon discharge to schedule a hospital follow up within 1 week. -For any concerning signs or symptoms please call 911 or proceed to the nearest emergency department Discharge Orders/Prescriptions Prescriptions: New calcium citrate 200 mg (950 mg) tablet 400 mg PO BID 30 Days Qty: 120 0RF Continued vitamin B12 500 mcg-folic acid 400 mcg tablet 500-400 mcg tablet 1 tab PO QDAY allopurinol 300 mg tablet 300 ea PO DAILY Label Comments: TAKE 1 TABLET BY MOUTH DAILY finasteride 5 MG tablet 5 mg PO DAILY Qty: 30 0RF tamsulosin 0.4 MG capsule 0.4 mg PO DAILY@1730 pantoprazole 40 mg tablet,delayed release (DR/EC) 40 mg PO BID Qty: 60 2RF sucralfate 1 gram tablet 1 g PO Q6H Qty: 120 1RF amlodipine 10 mg tablet 10 mg PO DAILY Changed magnesium oxide 400 MG tablet 800 mg PO BIDCM 30 Days Qty: 120 0RF Referrals / Follow Up: Zia Osman MD [Primary Care Provider] - Within 1 Week Gino Briscoe DO [Med Staff - Active Staff] - Within 1 Week (You will need to follow-up with Dr. Briscoe with GI in his office upon discharge. Please call hisoffice to schedule your hospital follow-up appointment (ph. [phone])) Disposition Disposition (needs filled in before D/C Order can be placed): Home, Self Care 11/19/22 7079<Electronically signed by Justa Davidson MD>Justa Davidson MD CC: Dr. Zia Osman MD ~ Signed [facility] Work Phone: evaluation noteNo assessment information available [facility] Work Phone: evaluation note* Diagnosis Onset Date Resolution Status Right shoulder injury acute Right shoulder pain acute [facility] Work Phone: evaluation note* Diagnosis Onset Date Resolution Status Right shoulder injury acute Right shoulder pain acute Impingement syndrome of right shoulder acute [facility] Work Phone: evaluation note* Diagnosis Onset Date Resolution Status Right shoulder injury acute Right shoulder pain acute Impingement syndrome of right shoulder acute Abnormal CT scan acute Acute alteration in mental status acute Acute dehydration acute Acute encephalopathy acute Acute hypotension acute Acute kidney failure acute Acute lactic acidosis acute Alcohol abuse, daily use acu te Alcoholism acute Crohn's disease acute Diarrhea acute Elevated liver enzymes acute Falls acute Head injury acute Hypokalemia acute Hypoxia acute Metabolic acidosis acute Seizure in response to acute event acute Sepsis acute Septic shock acute Upper GI bleed acute [facility] Work Phone: evaluation note* Diagnosis Onset Date Resolution Status Impingement syndrome of right shoulder acute Abnormal CT scan acute Acute alteration in mental status acute Acute dehydration acute Acute encephalopathy acute Acute hypotension acute Acute kidney failure acute Acute lactic acidosis acute Alcohol abuse, daily use acu te Alcoholism acute Crohn's disease acute Diarrhea acute Elevated liver enzymes acute Falls acute Head injury acute Hypokalemia acute Hypoxia acute Metabolic acidosis acute Seizure in response to acute event acute Sepsis acute Septic shock acute Upper GI bleed acute Crohn's disease acute Elevated liver enzymes acute Upper GI bleed acute Anemia acute Hypocalcemia syndrome acute Hypomagnesemia acute Sinus tachycardia seen on quality assurance monitor chassis [facility] Work Phone: Evaluation note* Diagnosis Onset Date Resolution Status Impingement syndrome of right shoulder acute Acute alteration in mental status resolved Acute dehydration resolved Acute encephalopathy resolve d Acute hypotension resolved Acute kidney failure resolve d Acute lactic acidosis resolv ed Diarrhea resolved Head injury resolved Hypokalemia resolved Hypoxia resolved Metabolic acidosis resolved Seizure in response to acute event resolved Sepsis resolved Septic shock resolved Upper GI bleed resolved Upper GI bleed resolved Anemia acute Hypocalcemia syndrome acute Hypomagnesemia acute Sinus tachycardia seen on quality assurance monitor chassis [facility] Work Phone: Evaluation note* Diagnosis Heartburn- Primary Peripheral edema Edema Primary hypertension Unspecified essential hypertension [facility] Diagnosis Peripheral edema- Primary Edema [facility]* Diagnosis Bilateral lower extremity edema- Primary Edema Itching Unspecified pruritic disorder Multiple excoriations Other and unspecified superficial injury of other, multiple, and unspecified sites, without mention of infection Essential hypertension, benign Alcohol abuse Alcohol abuse, unspecified Tobacco use disorder Gastroesophageal reflux disease, unspecified whether esophagitis present Gastrointestinal hemorrhage, unspecified gastrointestinal hemorrhage type Gout, unspecified cause, unspecified chronicity, unspecified site Anxiety Anxiety state, unspecified Depression, unspecified depression type Hypocalcemia [facility]* Diagnosis Peripheral edema Edema BPH with obstruction/lower urinary tract symptoms Hypertrophy of prostate with urinary obstruction and other lower urinary tract symptoms (LUTS) [facility]* Diagnosis Heartburn [facility]* Diagnosis Gastroesophageal reflux disease, unspecified whether esophagitis present- Primary Essential hypertension, benign Depression, unspecified depression type Anxiety Anxiety state, unspecified Hyponatremia Hyposmolality and/or hyponatremia Bilateral lower extremity edema Edema Itching with irritation Unspecified pruritic disorder documented in this encounter [facility] note* Diagnosis Essential hypertension, benign- Primary Peripheral edema Edema Gastroesophageal reflux disease, unspecified whether esophagitis present Anxiety Anxiety state, unspecified Depression, unspecified depression type Hypomagnesemia Disorders of magnesium metabolism Hyponatremia Hyposmolality and/or hyponatremia Eczema, unspecified type [facility] Diagnosis Hypomagnesemia- Primary Disorders of magnesium metabolism [facility] Diagnosis BPH with obstruction/lower urinary tract symptoms Hypertrophy of prostate with urinary obstruction and other lower urinary tract symptoms (LUTS) [facility] Diagnosis Peripheral edema Edema Primary hypertension Unspecified essential hypertension Heartburn [facility] Diagnosis BPH with obstruction/lower urinary tract symptoms Hypertrophy of prostate with urinary obstruction and other lower urinary tract symptoms (LUTS) [facility] Diagnosis Heartburn Peripheral edema Edema BPH with obstruction/lower urinary tract symptoms Hypertrophy of prostate with urinary obstruction and other lower urinary tract symptoms (LUTS) Primary hypertension Unspecified essential hypertension Hypomagnesemia Disorders of magnesium metabolism [facility] Diagnosis Heartburn Peripheral edema Edema Primary hypertension Unspecified essential hypertension [facility]* Diagnosis Wellness examination- Primary Gastroesophageal reflux disease, unspecified whether esophagitis present Essential hypertension, benign Hypomagnesemia Disorders of magnesium metabolism Gout, unspecified cause, unspecified chronicity, unspecified site Screening for diabetes mellitus Medication management Encounter for long-term (current) use of other medications Screening for prostate cancer Special screening for malignant neoplasm of prostate Screening for colon cancer Special screening for malignant neoplasms, colon Screening for HIV (human immunodeficiency virus) Special screening examination for other specified viral diseases Special screening examination for viral disease Special screening examination for unspecified viral disease Heartburn Primary hypertension Unspecified essential hypertension BPH with obstruction/lower urinary tract symptoms Hypertrophy of prostate with urinary obstruction and other lower urinary tract symptoms (LUTS) Anxiety Anxiety state, unspecified Depression, unspecified depression type Tobacco use disorder [facility] this [facility] Diagnosis Hypomagnesemia- Primary Disorders of magnesium metabolism [facility]* Diagnosis Peripheral edema Edema Primary hypertension Unspecified essential hypertension Hypomagnesemia Disorders of magnesium metabolism Heartburn [facility] in this encounter [facility] and [facility] note Author Dr. Davidson [facility] November 17, 2022 5:45pm Note Date/Time November 17, 2022 4:[address] [facility] Medical Records Department [address] [place] [address] H&P Exam - Hospitalist 11/17/22 1641 MR#: [id number] Acct: [id number] Name: HANSEL LOVE Jr. Rep #:[id number] : 1970 52 From: Justa Davidson MD PCP: Dr. Zia Osman MD Status:AD M IN Location: [facility] [id number] HPI - General General Date of Admission: 11/17/22 Date of Service: 11/17/22 Chief Complaint: Abnormal labs HPI Narrative HANSEL LOVE, is a 52 M with a history of gout, alcohol use disorder in early remission, GI bleed status post cauterization, BPH who presented to [facility] 11/17/22 due to lab abnormalities. He was recently admitted to the hospital for septic shock and had acute kidney failure as well as upper GI bleed bleed and EGD showed erosive esophagitis and oozing gastric ulcer with visible vessel. He was seen today at his gastroenterology office follow-up and had labs ordered, he was found to have a calcium of 6.1 and was sent to the emergency department. In the ED he had a magnesium checked which was 0.3 and hewas found to be symptomatic with his hypocalcemia, hospitalist consulted for admission. Patient reports that he had overall been doing better since getting out of the hospital and has not been drinking but has had some numbness and tingling in his fingers and toes over the past several days. Also has had some aching in his feet and ankles since he started walking on the more she is unsureif it is gout or not as he has had gout in the past. Denies diarrhea over the past several days and reports he has been taking calcium and magnesium supplements. No nausea or vomiting, overall eating well. Denied urinary complaints. [facility] Medical History Acute encephalopathy Alcohol abuse, daily use Depression GERD (gastroesophageal reflux disease) HTN (hypertension) Perianal abscess Serotonin syndrome Serotonin syndrome Smoker Urinary retention due to benign prostatic hyperplasia Home Medications finasteride 5 mg tablet 5 mg PO DAILY #30 tabs 06/20/17 [Rx Last Taken 05/30/18] magnesium oxide 400 mg (241.3 mg magnesium) tablet 400 mg PO BIDCM SUPPLEMENT 06/29/17 [History Last Taken 05/30/18] tamsulosin 0.4 mg capsule 0.4 mg PO DAILY@1730 PROSTATE 06/29/17 [History Last Taken 05/30/18] vitamin B12 500 mcg-folic acid 400 mcg tablet 1 tab PO QDAY 01/04/18 [History Last Taken 05/30/18] amlodipine 10 mg tablet 10 mg PO DAILY #30 tabs 11/13/22 [Rx Last Taken Unknown] pantoprazole 40 mg tablet,delayed release 40 mg PO BID #60 tabs 11/13/22 [Rx Last Taken Unknown] sucralfate 1 gram tablet 1 g PO Q6H #120 tabs 11/13/22 [Rx Last Taken Unknown] allopurinol 300 mg tablet 300 ea PO DAILY 11/17/22 [History Last Taken Unknown] Allergy/AdvReac Type Severity Reaction Status Date / Time Penicillins Allergy Unknown Verified 11/17/22 14:40 fluoxetine [From Prozac] AdvReac Other Verified 11/17/22 14:40 Family History Sister Diabetes Heart disease Mother CAD (coronary artery disease) Surgical History S/P right knee arthroscopy S/P tonsillectomy Social History Smoking Status: Current every day smoker tobacco type: cigarettes alcohol intake: current alcohol intake frequency: holidays/special occasions only ROS ROS Narrative General: Denies fever/chills HENT: Denies headache, denies stuffy nose, denies sore throat EYES: Feels like everything is seemed brighter since he has been discharged fromthe hospital Resp: Denies cough, denies shortness of breath Cardiac: Denies chest pain GI: Denies significant abdominal pain, denies changes in bowel, denies nausea/vomiting : Denies changes in urination Extremity: Denies swelling MSK: Denies weakness Neuro: Has some numbness and tingling in fingers and toes Heme: Denies any bleeding or bruising Skin: Denies rashes Psychiatric: No complaints voiced Vital Signs Vital Signs Vital Signs: 11/17/22 14:39 11/17/22 15:06 Temperature 98.4 F Temperature Source Temporal Pulse Rate 104 H Respiratory Rate 18 Respiratory Effort Normal Non-Labored Respiratory Pattern Normal Blood Pressure 116/83 H Blood Pressure Mean 94 Pulse Ox 98 Oxygen Delivery Method Room Air Weight Weight: 93.894 kg Body Mass Index (BMI) 30.5 Physical Exam Narrative General: Alert, oriented, no apparent distress HEENT: Atraumatic, normocephalic, Chvostek sign positive Eyes: Anicteric, normal conjunctiva, extraocular movements grossly intact, no nystagmus on far lateral gaze Neck: Supple Respiratory: Clear to auscultation bilaterally, normal respiratory effort Cardiovascular: Regular rate and rhythm GI: Soft, nontender, nondistended Extremities: No edema Musculoskeletal: Moving all extremities Neuro: No overt focal neurological deficits, had clonus on ED exam however givenpain in his feet and ankles this was deferred Skin: No rashes appreciated Psych: Cooperative Results Lab / Micro Data Labs: Laboratory Results - last 24 hr 11/17/22 15:22: Magnesium 0.3 L* Assessment & Plan Assessment/Plan (1) Hypocalcemia syndrome: (2) Hypomagnesemia: PLAN: Plan #Hypocalcemia and hypomagnesemia -Symptomatic with tingling in hands and feet, Chvostek sign positive -Ca 6.1 despite being 7.4 several days ago (still low when corrected for alb) and magnesium 0.3mg -Pt reports taking his Ca and Mg supplements and that he has not been drinking, also denies any diarrhea in multiple days -Given his severity of renal injury with creatinine returning to normal could bepost kidney injury diuresis causing magnesium wasting leading PTH resistance or deficiency, no s/s of pancreatitis and lipase not elevated -I's and O's, daily weights -Received 4 g of calcium and 4 g of magnesium in ED -Will start fluids -Slightly elevated white blood cell count however no signs or symptoms of infection, monitor closely -Will monitor on tele, EKG 92 HR, NSR -Trend BMP and mg -Check phos, vitamin d, pth -Urine Ca magnesium and urine creatinine -Suspect kidney as source of current electrolyte abnormalities, if unable to correct may need to consider discontinuing PPI though do not feel that would cause this profound change in this short period of time #History of upper GI bleed -During his last admission earlier this month had EGD that showed erosive esophagitis and oozing gastric ulcers with visible vessel -Is on PPI 40 mg twice daily and sucralfate -Hemoglobin stable #Tobacco use -Nicotine patch -Advised cessation #hx gout -Reports hx #Hx of alcohol use disorder- in remission -Continue to encourage cessation #DVT ppx: SCDs given recent GI bleed Justa Davidson MD Time spent in the patient's overall evaluation,decision-making process, review of diagnostic data, adjustment of management, discussion with other providers, nursing nursing and ancillary staff involved in patient's care documentation, 60minutes Charges/Coding Visit Charges Inpatient E&M: 20650 Init Hosp L2 11/17/22 1745 <Electronically signed by Justa Davidson MD> Cosigner Signature (if applicable): CC: Dr. Zia Osman MD; Dr. Justa Davidson MD~ Signed [facility] Work Phone: [employer] for referral (narrative)* Diagnostic Procedure Only (Routine) - Pending Review Specialty Diagnoses / Procedures Referred By Contac t Referred To Contact US IMAGING Diagnoses Bilateral lower extremity edema Procedures US VENOUS REFLUX BILATERAL DUP-SCAN XTR VEINS COMPLETE BILATERAL STUDY Celina Tesfaye MD [address] [place] [address] Us Imaging Referral ID Status Reason Start Date Expiration Date Visits Requested Visits Authorized [id number] Pending Review Auto-Generat ed Referral 03/03/2023 04/01/2024 1 1 [facility] for referral (narrative)* Outpatient Procedure (Routine) - Authorized Specialty Diagnoses / Procedures Referred By Contac t Referred To Contact [facility] Diagnoses Bilateral lower extremity edema Procedures PVR ANK PRESS LEONOR VAS LAB NON-INVAS PHYSIOLOGIC STD EXTREMITY ART 2 LEVEL Anjelica Munoz APRN.INSURANCE DEFENSE ATTORNEY [address] [place] [address] [facility] [address] [place] [address] Referral ID Status Reason Start Date Expiration Date Visits Requested Visits Authorized [id number] Authorized Auto-Generat ed Referral 3 06/06/2024 1 1 * Outpatient Procedure (Routine) - Authorized Specialty Diagnoses / Procedures Referred By Contac t Referred To Contact [facility] Diagnoses Bilateral lower extremity edema Procedures US LEG ARTERIAL PERIPH LEONOR VAS LAB DUP-SCAN LXTR ART/ARTL BPGS COMPL BI STUDY Anjelica Munoz APRN.CNP [address] [place] [address] [facility] [address] [place] [address] Referral ID Status Reason Start Date Expiration Date Visits Requested Visits Authorized [id number] Authorized Auto-Generat ed Referral 3 06/06/2024 1 1 [facility] Summary Purpose Family History Relationship Condition Age at Onset Recorded Date/T juan ramon sister Diabetes mellitus Unknown Cardiac disease Unknown mother Coronary artery disease Unknown Advance Directives Advance Directive Response Recorded Date/ Time Advance Directives No June 8:01pm Living Will No May 30 5:44pm Power of Special Education Bus Driver No May 30, 2018 5:44pm Advance Directive Response Recorded Date/ Time Advance Directives No June 7:01pm Living Will No May 30 4:44pm Power of Special Education Bus Driver No May 30, 2018 4:44pm Advance Directive Response Recorded Date/ Time Advance Directives No July 14, 2022 4:43pm Living Will No July 14 4:43pm Power of Special Education Bus Driver No July 14, 2022 4:43pm Advance Directive Response Recorded Date/ Time Advance Directives No July 14, 2022 5:43pm Living Will No November 09, 2022 2:50am Power of Special Education Bus Driver No November 09 2:50am Advance Directive Response Recorded Date/ Time Advance Directives No July 14, 2022 5:43pm Living Will No November 09, 2022 5:43am Power of Special Education Bus Driver No November 09 5:43am Advance Directive Response Recorded Date/ Time Advance Directives No November 16, 2:30pm Living Will No November 17, 2022 3:07pm Power of Special Education Bus Driver No November 17 3:07pm Advance Directive Response Recorded Date/ Time Advance Directives No November 16, 2:30pm Living Will No November 17, 2022 6:44pm Power of Special Education Bus Driver No November 17 6:44pm Chief Complaint and Reason for Visit Chief Complaint EORDER- RIGHT SHOULD ER INJURY Chief Complaint EORDER- RIGHT SHOULD ER INJURY RIGHT SHOULDER PAIN AND INJURY Reason for Visit Right shoulder injur y Right shoulder pain Chief Complaint RIGHT SHOULDER PAIN AND INJURY RIGHT SHOULDER SEIZURE Reason for Visit Right shoulder injur y Right shoulder pain Impingement syndrome of right shoulder Chief Complaint RIGHT SHOULDER PAIN AND INJURY RIGHT SHOULDER ACUTE DEHYDRATION ACUTE DEHYDRATION ACUTE DEHYDRATION ACUTE DEHYDRATION ACUTE DEHYDRATION ACUTE DEHYDRATION ACUTE DEHYDRATION ACUTE DEHYDRATION ACUTE DEHYDRATION ACUTE DEHYDRATION ACUTE DEHYDRATION ACUTE DEHYDRATION Reason for Visit Right shoulder injur y Right shoulder pain Impingement syndrome of right shoulder Abnormal CT scan Acute alteration in mental status Acute dehydration Acute encephalopathy Acute hypotension Acute kidney failure Acute lactic acidosis Alcohol abuse, daily use Alcoholism Crohn's disease Diarrhea Elevated liver enzymes [place] Head injury Hypokalemia Hypoxia Metabolic acidosis Seizure in response to acute event Sepsis Septic shock Upper GI bleed Chief Complaint PAIN AND INJURY RIGHT SHOULDER ACUTE DEHYDRATION ACUTE DEHYDRATION ACUTE DEHYDRATION ACUTE DEHYDRATION ACUTE DEHYDRATION ACUTE DEHYDRATION ACUTE DEHYDRATION ACUTE DEHYDRATION ACUTE DEHYDRATION ACUTE DEHYDRATION ACUTE DEHYDRATION ACUTE DEHYDRATION ACUTE DEHYDRATION H FU EORDERS HYPOCALCEIA SYMPTOMATICE, HYPOMAGNESIMIA Reason for Visit Impingement syndrome of right shoulder Abnormal CT scan Acute alteration in mental status Acute dehydration Acute encephalopathy Acute hypotension Acute kidney failure Acute lactic acidosis Alcohol abuse, daily use Alcoholism Crohn's disease Diarrhea Elevated liver enzymes [place] Head injury Hypokalemia Hypoxia Metabolic acidosis Seizure in response to acute event Sepsis Septic shock Upper GI bleed Crohn's disease Elevated liver enzymes Upper GI bleed Anemia Hypocalcemia syndrome Hypomagnesemia Sinus tachycardia seen on quality assurance monitor chassis Chief Complaint PAIN AND INJURY RIGHT SHOULDER ACUTE DEHYDRATION ACUTE DEHYDRATION ACUTE DEHYDRATION ACUTE DEHYDRATION ACUTE DEHYDRATION ACUTE DEHYDRATION ACUTE DEHYDRATION ACUTE DEHYDRATION ACUTE DEHYDRATION ACUTE DEHYDRATION ACUTE DEHYDRATION ACUTE DEHYDRATION ACUTE DEHYDRATION H FU EORDERS HYPOCALCEIA SYMPTOMATICE, HYPOMAGNESIMIA HYPOCALCEIA SYMPTOMATICE, HYPOMAGNESIMIA HYPOCALCEIA SYMPTOMATICE, HYPOMAGNESIMIA Reason for Visit Impingement syndrome of right shoulder Abnormal CT scan Acute alteration in mental status Acute dehydration Acute encephalopathy Acute hypotension Acute kidney failure Acute lactic acidosis Alcohol abuse, daily use Alcoholism Crohn's disease Diarrhea Elevated liver enzymes [place] Head injury Hypokalemia Hypoxia Metabolic acidosis Seizure in response to acute event Sepsis Septic shock Upper GI bleed Crohn's disease Elevated liver enzymes Upper GI bleed Anemia Hypocalcemia syndrome Hypomagnesemia Sinus tachycardia seen on quality assurance monitor chassis Chief Complaint PAIN AND INJURY RIGHT SHOULDER ACUTE DEHYDRATION ACUTE DEHYDRATION ACUTE DEHYDRATION ACUTE DEHYDRATION ACUTE DEHYDRATION ACUTE DEHYDRATION ACUTE DEHYDRATION ACUTE DEHYDRATION ACUTE DEHYDRATION ACUTE DEHYDRATION ACUTE DEHYDRATION ACUTE DEHYDRATION ACUTE DEHYDRATION H FU EORDERS HYPOCALCEIA SYMPTOMATICE, HYPOMAGNESIMIA HYPOCALCEIA SYMPTOMATICE, HYPOMAGNESIMIA HYPOCALCEIA SYMPTOMATICE, HYPOMAGNESIMIA HYPOCALCEIA SYMPTOMATICE, HYPOMAGNESIMIA Reason for Visit Impingement syndrome of right shoulder Acute alteration in mental status Acute dehydration Acute encephalopathy Acute hypotension Acute kidney failure Acute lactic acidosis Diarrhea Head injury Hypokalemia Hypoxia Metabolic acidosis Seizure in response to acute event Sepsis Septic shock Upper GI bleed Upper GI bleed Anemia Hypocalcemia syndrome Hypomagnesemia Sinus tachycardia seen on quality assurance monitor chassis Reason for Referral Specialty Diagnoses / Procedures Referred By Enma marsh Referred To Contact Dermatology Diagnoses Eczema, unspecified type Procedures CONSULT TO DERMATOLOGY Anjelica Munoz APRN.INSURANCE DEFENSE ATTORNEY [address] [place] [address] Referral ID Status Reason Start Date Expiration Date Visits Requested Visits Authorized [id number] Ref Not Required PCP Requested Referral 09/09/2023 09/08/2024 1 1 Additional Source Comments (unrecognized sect ion and content) No Status Records FoundNo Status Records FoundNo Status Records Found INFORMATION SOURCE (unrecogn ized section and content) DATE CREATED AUTHOR 01/27/2018 [facility] ([place] DATE CREATED AUTHOR AUTHOR'S ORGANIZ ATION 11/20/2023 [facility] DATE CREATED AUTHOR AUTHOR'S ORGANIZ ATION 01/04/2025 [facility] Goals (unrecognized section and content) Goals may be documented in a n alternate sectionGoals may be documented in an alternate sectionGoals may be documented in an alternate sectionGoals may be documented in an alternate section Care Teams (unrecognized sec tion and content) Team Status: Active Member Role Status Dates Dr. Zia Osman MD Family Provider Active Dr. Zia Osman MD Primary Care Provider Active Team Status: Inactive Member Role Status Dates Dr. Zia Osman MD Primary Care Provider, Referr ing Provider Active JUAN Agarwal Attending Provider Active Team Status: Inactive Member Role Status Dates Dr. Zia Osman MD Primary Care Provider Active Renetta Castro NP-C Attending Provider, Referring Pr ovider Active Team Status: Inactive Member Role Status Dates Dr. Zia Osman MD Primary Care Provider Active JUAN Agarwal Attending Provider, Referring Prov ider Active Team Status: Inactive Member Role Status Dates Dr. Zia Osman MD Primary Care Provider Active Dr. Ken Mukherjee MD Emergency Provider Active Team Status: Active Member Role Status Dates Dr. Zia Osman MD Primary Care Provider Active Dr. Ken Mukherjee MD Emergency Provider Active Dr. Reed Espana MD Admit Provider, Attending Provider, Other Provider Active Team Status: Active Member Role Status Dates Dr. Zia Osman MD Primary Care Provider Active Dr. Ken Mukherjee MD Emergency Provider Active Dr. Reed Espana MD Admit Provider, Other Provide r Active Dr. Jama Garner MD Other Provider Active Dr. Cally Zacarias MD Other Provider Active Dr. Rickey Brown MD Other Provider Active Dr. Gino Briscoe DO Attending Provider Active Team Status: Active Member Role Status Dates Dr. Zia Osman MD Primary Care Provider Active Dr. Ken Mukherjee MD Emergency Provider Active Dr. Reed Espana MD Admit Provider, Other Provide r Active Dr. Jama Garner MD Other Provider Active Dr. Cally Zacarias MD Other Provider Active Dr. Rickey Brown MD Other Provider Active Dr. Timmy Alcazar DO Attending Provider Active Team Status: Active Member Role Status Dates Dr. Zia Osman MD Primary Care Provider Active Dr. Gino Briscoe DO Attending Provider Active Team Status: Active Member Role Status Dates Dr. Zia Osman MD Primary Care Provider Active Dr. Ken Mukherjee MD Emergency Provider Active Dr. Reed Espana MD Admit Provider, Other Provide r Active Dr. Jama Garner MD Other Provider Active Dr. Cally Zacarias MD Attending Provider, Other Prov ider Active Dr. Rickey Brown MD Other Provider Active Team Status: Inactive Member Role Status Dates Dr. Zia Osman MD Primary Care Provider Active Dr. Ken Mukherjee MD Emergency Provider Active Dr. Reed Espana MD Admit Provider, Other Provide r Active Dr. Jama Garner MD Other Provider Active Dr. Cally Zacarias MD Attending Provider Active Dr. Rickey Brown MD Other Provider Active Team Status: Inactive Member Role Status Dates Dr. Zia Osman MD Primary Care Provider, Referr ing Provider Active Dr. Gino Briscoe DO Attending Provider Active Team Status: Active Member Role Status Dates Dr. Zia Osman MD Primary Care Provider Active Dr. Gino Briscoe DO Attending Provider, Referring Provider Active Team Status: Active Member Role Status Dates Dr. Zia Osman MD Primary Care Provider Active Dr. Will Hector MD Emergency Provider Active Dr. Justa Davidson MD Admit Provider, Attending Provid er Active Team Status: Active Member Role Status Dates Dr. Zia Osman MD Primary Care Provider Active Dr. Will Hector MD Emergency Provider Active Dr. Justa Davidson MD Admit Provider, At tending Provider, Other Provider Active Team Status: Inactive Member Role Status Dates Dr. Zia Osman MD Primary Care Provider Active Dr. Will Hector MD Emergency Provider Active Dr. Justa Davidson MD Admit Provider, Attending Provid er Active Team Status: Inactive Member Role Status Dates Dr. Zia Osman MD Primary Care Provider Active Dr. Gino Briscoe DO Attending Provider, Referring Provider Active Team Status: Active Member Role Status Dates Dr. Zia Osman MD Primary Care Provider Active SYDNEE Rodriguez Attending Provider Active Team Status: Inactive Member Role Status Dates Dr. Zia Osman MD Primary Care Provider Active SYDNEE Rodriguez Attending Provider Active [employer] Relationship Specialty Start Date End Date Pcp, No PCP - General 12/18/22 07/08/23 Qa Internship Relationship Specialty Start Date End Date Pcp, No PCP - General 12/18/22 07/08/23 Qa Internship Relationship Specialty Start Date End Date Pcp, No PCP - General 12/18/22 07/08/23 Qa Internship Relationship Specialty Start Date End Date Celina Tesfaye MD [address] [place] [address] PCP - General Family Medicine 03/03/23 Qa Internship Relationship Specialty Start Date End Date Celina Tesfaye MD [address] [place] [address] PCP - General Family Medicine 03/03/23 Qa Internship Relationship Specialty Start Date End Date Celina Tesfaye MD [address] [place] [address] PCP - General Family Medicine 03/03/23 Qa Internship Relationship Specialty Start Date End Date Celina Tesfaye MD [address] [place] [address] PCP - General Family Medicine 03/03/23 Qa Internship Relationship Specialty Start Date End Date Celina Tesfaye MD [address] [place] [address] PCP - General Family Medicine 03/03/23 Qa Internship Relationship Specialty Start Date End Date Celina Tesfaye MD [address] [place] [address] PCP - General Family Medicine 03/03/23 Qa Internship Relationship Specialty Start Date End Date Celina Tesfaye MD [address] [place] [address] PCP - General Family Medicine 03/03/23 Qa Internship Relationship Specialty Start Date End Date Celina Tesfaye MD [address] [place] [address] PCP - General Family Medicine 03/03/23 Qa Internship Relationship Specialty Start Date End Date Celina Tesfaye MD [address] [place] [address] PCP - General Family Medicine 03/03/23 Qa Internship Relationship Specialty Start Date End Date Celina Tesfaye MD [address] [place] [address] PCP - General Family Medicine 03/03/23 Qa Internship Relationship Specialty Start Date End Date Celina Tesfaye MD [address] [place] [address] PCP - General Family Medicine 03/03/23 Qa Internship Relationship Specialty Start Date End Date Celina Tesfaye MD [address] [place] [address] PCP - General Family Medicine 03/03/23 Qa Internship Relationship Specialty Start Date End Date Celina Tesfaye MD [address] [place] [address] PCP - General Family Medicine 03/03/23 Qa Internship Relationship Specialty Start Date End Date Celina Tesfaye MD [address] [place] [address] PCP - General Family Medicine 03/03/23 Qa Internship Relationship Specialty Start Date End Date Celina Tesfaye MD [address] [place] [address] PCP - General Family Medicine 03/03/23 Danna Guillory APRN.CNP [address] [facility] [place] [address] [facility] Qa Internship Relationship Specialty Start Date End Date Celina Tesfaye MD [address] [place] [address] PCP - General Family Medicine 03/03/23 Podlogar, JARVIS ClayN.INSURANCE DEFENSE ATTORNEY [address] [place] [address] [employer] Family Medicine 07/15/24 Anjelica Munoz APRN.INSURANCE DEFENSE ATTORNEY [address] [place] [address] [facility] 10/30/24 Qa Internship Relationship Specialty Start Date End Date Celina Tesfaye MD [address] [place] [address] PCP - General Family Medicine 03/03/23 Podlogar, Danna AIR BRAKE ADJUSTER.INSURANCE DEFENSE ATTORNEY [address] [place] [address] [facility] Medicine 07/15/24 Anjelica Munoz AIR BRAKE ADJUSTER.INSURANCE DEFENSE ATTORNEY [address] [place] [address] [facility] 10/30/24 Qa Internship Relationship Specialty Start Date End Date Celina Tesfaye MD [address] [place] [address] PCP - General Family Medicine 03/03/23 Podlogar, Danna, AIR BRAKE ADJUSTER.INSURANCE DEFENSE ATTORNEY [address] [place] [address] [facility] 07/15/24 Anjelica Munoz APRN.INSURANCE DEFENSE ATTORNEY [address] [place], [place] [address] [facility] 10/30/24 Qa Internship Relationship Specialty Start Date End Date Celina Tesfaye MD [address] [place], [place] [address] PCP - General Family Medicine 03/03/23 MarylogDanna fitzgerald APRN.INSURANCE DEFENSE ATTORNEY [address] [place], [place] [id number] [facility] 07/15/24 Anjelica Munoz APRN.INSURANCE DEFENSE ATTORNEY [address] [place] [address] [facility] 01/18/25 Source Comments (unrecognize d section and content) In the event this informatio n is protected by the Federal Confidentiality of Alcohol and Drug Abuse Patient Records regulations: The Federal rules restrict any use of the information to criminally investigate or prosecute any alcohol or drug abuse patient.[facility] the event this information is protected by the Federal Confidentiality of Alcohol and Drug Abuse Patient Records regulations: The Federal rules restrict any use of the information to criminally investigate or prosecute any alcohol or drug abuse patient.[facility] Hospital[facility] the event this information is protected by the Federal Confidentiality of Alcohol and Drug Abuse Patient Records regulations: The Federal rules restrict any use of the information to criminally investigate or prosecute any alcohol or drug abuse patient.[facility] Hospital[facility] the event this information is protected by the Federal Confidentiality of Alcohol and Drug Abuse Patient Records regulations: The Federal rules restrict any use of the information to criminally investigate or prosecute any alcohol or drug abuse patient.[facility] Hospital[facility] the event this information is protected by the Federal Confidentiality of Alcohol and Drug Abuse Patient Records regulations: The Federal rules restrict any use of the information to criminally investigate or prosecute any alcohol or drug abuse patient.[facility] Hospital[facility] the event this information is protected by the Federal Confidentiality of Alcohol and Drug Abuse Patient Records regulations: The Federal rules restrict any use of the information to criminally investigate or prosecute any alcohol or drug abuse patient.[facility] Hospital[facility] the event this information is protected by the Federal Confidentiality of Alcohol and Drug Abuse Patient Records regulations: The Federal rules restrict any use of the information to criminally investigate or prosecute any alcohol or drug abuse patient.[facility] Hospital[facility] the event this information is protected by the Federal Confidentiality of Alcohol and Drug Abuse Patient Records regulations: The Federal rules restrict any use of the information to criminally investigate or prosecute any alcohol or drug abuse patient.[facility] Hospital[facility] the event this information is protected by the Federal Confidentiality of Alcohol and Drug Abuse Patient Records regulations: The Federal rules restrict any use of the information to criminally investigate or prosecute any alcohol or drug abuse patient.[facility] Hospital[facility] the event this information is protected by the Federal Confidentiality of Alcohol and Drug Abuse Patient Records regulations: The Federal rules restrict any use of the information to criminally investigate or prosecute any alcohol or drug abuse patient.[facility] Hospital[facility] the event this information is protected by the Federal Confidentiality of Alcohol and Drug Abuse Patient Records regulations: The Federal rules restrict any use of the information to criminally investigate or prosecute any alcohol or drug abuse patient.[facility] Hospital[facility] the event this information is protected by the Federal Confidentiality of Alcohol and Drug Abuse Patient Records regulations: The Federal rules restrict any use of the information to criminally investigate or prosecute any alcohol or drug abuse patient.[facility] Hospital[facility] the event this information is protected by the Federal Confidentiality of Alcohol and Drug Abuse Patient Records regulations: The Federal rules restrict any use of the information to criminally investigate or prosecute any alcohol or drug abuse patient.[facility] HospitalIn the event this information is protected by the Federal Confidentiality of Alcohol and Drug Abuse Patient Records regulations: The Federal rules restrict any use of the information to criminally investigate or prosecute any alcohol or drug abuse patient.[facility] HospitalIn the event this information is protected by the Federal Confidentiality of Alcohol and Drug Abuse Patient Records regulations: The Federal rules restrict any use of the information to criminally investigate or prosecute any alcohol or drug abuse patient.[facility] HospitalIn the event this information is protected by the Federal Confidentiality of Alcohol and Drug Abuse Patient Records regulations: The Federal rules restrict any use of the information to criminally investigate or prosecute any alcohol or drug abuse patient.[facility] HospitalIn the event this information is protected by the Federal Confidentiality of Alcohol and Drug Abuse Patient Records regulations: The Federal rules restrict any use of the information to criminally investigate or prosecute any alcohol or drug abuse patient.[facility] HospitalIn the event this information is protected by the Federal Confidentiality of Alcohol and Drug Abuse Patient Records regulations: The Federal rules restrict any use of the information to criminally investigate or prosecute any alcohol or drug abuse patient.[facility] HospitalIn the event this information is protected by the Federal Confidentiality of Alcohol and Drug Abuse Patient Records regulations: The Federal rules restrict any use of the information to criminally investigate or prosecute any alcohol or drug abuse patient.[facility] HospitalIn the event this information is protected by the Federal Confidentiality of Alcohol and Drug Abuse Patient Records regulations: The Federal rules restrict any use of the information to criminally investigate or prosecute any alcohol or drug abuse patient.[facility] HospitalIn the event this information is protected by the Federal Confidentiality of Alcohol and Drug Abuse Patient Records regulations: The Federal rules restrict any use of the information to criminally investigate or prosecute any alcohol or drug abuse patient.[facility] HospitalIn the event this information is protected by the Federal Confidentiality of Alcohol and Drug Abuse Patient Records regulations: The Federal rules restrict any use of the information to criminally investigate or prosecute any alcohol or drug abuse patient.[facility] HospitalIn the event this information is protected by the Federal Confidentiality of Alcohol and Drug Abuse Patient Records regulations: The Federal rules restrict any use of the information to criminally investigate or prosecute any alcohol or drug abuse patient.[facility] HospitalIn the event this information is protected by the Federal Confidentiality of Alcohol and Drug Abuse Patient Records regulations: The Federal rules restrict any use of the information to criminally investigate or prosecute any alcohol or drug abuse patient.[facility] HospitalIn the event this information is protected by the Federal Confidentiality of Alcohol and Drug Abuse Patient Records regulations: The Federal rules restrict any use of the information to criminally investigate or prosecute any alcohol or drug abuse patient.[facility] HospitalIn the event this information is protected by the Federal Confidentiality of Alcohol and Drug Abuse Patient Records regulations: The Federal rules restrict any use of the information to criminally investigate or prosecute any alcohol or drug abuse patient.[facility] Reason for Visit (unrecogniz ed section and content) Reason Comments Recheck Reason Comments Results Reason Comments swelling above ankles Reason Comments Establish Care Reason Onset Date Comments Refill Request 03/19/2023 Refill Request 03/22/2023 Reason Comments Insurance Authorization Calcium Citrate Reason Comments Request Outside Medical Records Reason Onset Date Comments Refill Request 05/31/2023 Reason Comments Follow Up Reason Comments Follow Up Reason Comments Medication Request Reason Comments Patient Update derm referral Reason Comments Refill Request Reason Onset Date Comments Refill Request 10/25/2023 Reason Onset Date Comments Refill Request 01/24/2024 Reason Onset Date Comments Refill Request 03/21/2024 Reason Onset Date Comments Refill Request 07/10/2024 Reason Onset Date Comments Refill Request 10/02/2024 Reason Comments Physical Reason Onset Date Comments Results 11/07/2024 Reason Onset Date Comments Refill Request 11/21/2024 Reason Onset Date Comments Refill Request 02/17/2025 FOR RECORDS PERTAINING TO PATIENTS WHO ARE OR HAVE BEEN ENROLLED IN A CHEMICAL DEPENDENCY/SUBSTANCEABUSE PROGRAM, SOME INFORMATION MAY BE OMITTED. This clinical summary was aggregated from multiple sources. Caution should be exercised in using it in the provision of clinical care. This summary normalizes information from multiple sources, and as a consequence, information in this document may materially change the coding, format and clinical context of patient data. In addition, data may be omitted in some cases. CLINICAL DECISIONS SHOULD BE BASED ON THE PRIMARY CLINICAL RECORDS. [facility] [employer] [facility]. provides no warranty or guarantee of the accuracy or completeness of information in this document.
[2025-03-17 12:11] LABS: Lipase 34 U/L (13-75)
[2025-03-17 12:12] LABS: Alcohol, Blood (Medical)-Serum < 10.1 mg/dL (<=10.0)
[2025-03-17 12:15] LABS: Troponin T High Sensitivity 160 ng/L (<=22)
[2025-03-17 12:29] LABS: AST(SGOT) 66 U/L (<=37); Alanine Aminotransfer ALT/SGPT 31 U/L (<=46); Albumin, Serum 5.8 g/dL (3.5-5.0); Alkaline Phosphatase 115 U/L (40-129); Anion Gap 35 (5-15); BUN 24 mg/dL (4-19); BUN/Creat Ratio 8.2 RATIO (10-20); Calcium,Total 9.5 mg/dL (7.6-11.0); Carbon Dioxide 21.7 mmol/L (21.0-32.0); Chloride 84 mmol/L (98-108); Estimated Creatinine Clearance 28.03 ml/min (50-250); Globulin 3.6 g/dL (2.2-4.2); Glucose 226 mg/dL (70-99); Magnesium 0.5 mg/dL (1.5-2.2); Potassium 2.5 mmol/L (3.3-5.1)
[2025-03-17] MEDS: 0.9% Normal Saline (1000mL) 1,000 ML 999 ML IV (13:00)
[2025-03-17] MEDS: Magnesium Sulfate 4gm/100mL 4 GM/100 ML IV.SOLN. IV ×2 (13:00→17:03)
[2025-03-17] MEDS: Piperacil/Tazobactam 4.5 GM in 0.9% Normal Saline (100mL MB+) 100 ML IV (13:00)
[2025-03-17] MEDS: Potassium Chloride 10mEq/100mL 10 MEQ/100 ML IV.SOLN. 100 MEQ IV BOLUS ×4 (13:08→19:51)
[2025-03-17 13:32] LABS: Mucous, Urine 0 SEEN /hpf (<or=2+); Squamous Epithelial Cells - UA 0 SEEN /hpf (0-5)
[2025-03-17] MEDS: Vancomycin HCl 1,750 MG in 0.9% Normal Saline (500mL Bag) 500 ML 250 MG IV (13:32)
[2025-03-17 13:36] LABS: Color, Urine Yellow (Yellow); Glucose, Dipstick Normal (Normal); Ketone-Dipstick 15 mg/dl (Negative); Leukocyte Esterase-Dipstick 25 /ul (Negative); Nitrite-Dipstick Negative (Negative); Occult Blood-Urine 250 /ul (Negative); Protein-Dipstick 500 mg/dl (Negative); Specific Gravity, Urine 1.015 (1.002-1.030); Urine Bilirubin Dipstick Negative (Negative)
[2025-03-17 13:47] LABS: Red Blood Cells-Urine 10-25 SEEN /hpf (0-5)
[2025-03-17 13:49] LABS: Fine Granular Cast- Urine 0-5 SEEN /lpf (0-5)
[2025-03-17 14:25] LABS: Troponin T High Sens 2 HR 153 ng/L (<=22)
--- OUTSIDE RECORDS SUMMARY | 2025-03-17 14:41 | XMS RPT_ITS | CCD ---
Author Organization [facility] CliniSymi Care Team Providers Care Preschool Principal Name Role Phone DAVID SALDIVAR Dr. John E Primary Care Provider Dr. Zia Osman Referring Provider Nohemi MARTINEZ PA Lazaro Attending Provider [phone] Zia Osman Primary Care Provider Dr. Zia Osman Referring Provider Nohemi MARTINEZ PA Lazaro Attending Provider [phone] Ken Mukherjee Emergency Provider Dr. Reed Espana Admit Provider Dr. eRed Espana Attending Provider Dr. Reed Espana Other Provider Dr. Jama Garner Other Provider Dr. Cally Zacarias Other Provider Dr. Rickey Brown Other Provider [phone] Timmy Alcazar Attending Provider Luis Felipe, Dr. Christian Attending Provider Dr. Cally Zacarias Attending Provider Dr. Zia Osman Primary Care Provider Dr. Zia Osman Referring Provider Nohemi MARTINEZ PA Lazaro Attending Provider [phone] Will Hector Emergency Provider Dr. 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.Anjelica POOLE Unavailable ANJELICA MUNOZ Referring Unavailable CELINA TESFAYE Primary Care Unavailab ANJELICA Abernathy Attending Unavailable CELINA TESFAYE Primary Care Unavailab chance Munoz 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.Anjelica POOLE Unavailable Allergies Allergy Classification Reported Allergen(s) Allergy Type Date of Onset Reaction(s) Facility Penicillins (antibiotic) (1 source) Penicillin G Drug Allergy 11-27-2010 [facility] (10 sources) FLUoxetine Drug Allergy 11-15-2018 Other [facility] (10 sources) Penicillins Allergy to substance 11-15-2018 Unknown [facility] (20 sources) Penicillin G; Translations: [PENICILLIN G] Drug Allergy 11-27-2010 [facility] (1 source) FLUoxetine Drug Allergy 01-07-2023 [facility] (1 source) Penicillins Drug allergy (disorder) 01-07-2023 [facility] Medications Current Medications Medication Drug [...] once daily. Take 2 tablets by mo [facility] once daily. magnesium chloride 598 mg [...] a day. Take 2 tablets by mo [facility] two times a day. metOLazone 2.5 [...] Onset: 3 Other aftercare (1 source) Other terminal carman (current) drug therapy; Translations: [Medication management] Onset: [...] Test Name Value Interpretation Reference Range Facility [facility] 12-28-2024 [facility] Telephone ([facility]) -------- HANSEL LOVE ([id number]) 1970 M Date Time Provider Department 12/28/24 [...] Status:Closed by KARINE PEÑA on 12/29/24 Normal [facility] CBC W Auto Differential pane l (Bld)on 11-06-2024 Basophils (Bld) [#/Vol] 0.09 10*3/uL Normal <0.11 [facility] Comment on above: Order Comment: Speci men Type: BLOOD SPECIMEN Ordering Facility: [facility] Address: [address] [place] [address] Performed By: #### 5 7021-8 #### [facility] CLIA [id number] [address] [place] [address] [place] Basophils/100 WBC (Bld) 1.4 % Normal [facility] Comment on above: Order Comment: Speci men Type: BLOOD SPECIMEN Ordering Facility: [facility] Address: [address] [place] [address] Performed By: #### 5 7021-8 #### [facility] CLIA [id number] [address] [place] [address] [place] Differential cell count method Nom (Bld) Auto Normal [facility] Comment on above: Order Comment: Speci men Type: BLOOD SPECIMEN Ordering Facility: [facility] Address: [address] [place] [address] Performed By: #### 5 7021-8 #### [facility] CLIA [id number] [address] [place] [address] [place] Eosinophils (Bld) [#/Vol] 0.36 10*3/uL Normal <0.46 [facility] Comment on above: Order Comment: Speci men Type: BLOOD SPECIMEN Ordering Facility: [facility] Address: [address] [place] [address] Performed By: #### 5 7021-8 #### [facility] CLIA [id number] [address] [place] [address] [place] Eosinophils/100 WBC (Bld) 5.5 % Normal [facility] Comment on above: Order Comment: Speci men Type: BLOOD SPECIMEN Ordering Facility: [facility] Address: [address] [place] [address] Performed By: #### 5 7021-8 #### [facility] CLIA [id number] [address] [place] [address] [place] Erythrocyte distribution width (RBC) [Ratio] 12.8 % Normal 11.5-15.0 [facility] Comment on above: Order Comment: Speci men Type: BLOOD SPECIMEN Ordering Facility: [facility] Address: [address] [place] [address] Performed By: #### 5 7021-8 #### [facility] CLIA [id number] [address] [place] [address] [place] Hematocrit (Bld) [Volume fraction] 38.9 % Low 39.0-51.0 [facility] Comment on above: Order Comment: Speci men Type: BLOOD SPECIMEN Ordering Facility: [facility] Address: [address] [place] [address] Performed By: #### 5 7021-8 #### [facility] CLIA [id number] [address] [place] [address] [place] Hemoglobin (Bld) [Mass/Vol] 13.0 g/dL Normal 13.0-17.0 [facility] Comment on above: Order Comment: Speci men Type: BLOOD SPECIMEN Ordering Facility: [facility] Address: [address] [place] [address] Performed By: #### 5 7021-8 #### [facility] CLIA [id number] [address] [place] [address] [place] Immature granulocytes (Bld) [#/Vol] 10*3/uL Normal <0.10 [facility] Comment on above: Order Comment: Speci men Type: BLOOD SPECIMEN Ordering Facility: [facility] Address: [address] [place] [address] Performed By: #### 5 7021-8 #### [facility] CLIA [id number] [address] [place] [address] [place] Immature granulocytes/100 WBC (Bld) 0.3 % Normal [facility] Comment on above: Order Comment: Speci men Type: BLOOD SPECIMEN Ordering Facility: [facility] Address: [address] [place] [address] Performed By: #### 5 7021-8 #### [facility] CLIA [id number] [address] [place] [address] [place] Lymphocytes (Bld) [#/Vol] 2.03 10*3/uL Normal 1.00-4.00 [facility] Comment on above: Order Comment: Speci men Type: BLOOD SPECIMEN Ordering Facility: [facility] Address: [address] [place] [address] Performed By: #### 5 7021-8 #### [facility] CLIA [id number] [address] [place] [address] [place] Lymphocytes/100 WBC (Bld) 31.2 % Normal [facility] Comment on above: Order Comment: Speci men Type: BLOOD SPECIMEN Ordering Facility: [facility] Address: [address] [place] [address] Performed By: #### 5 7021-8 #### [facility] CLIA [id number] [address] [place] [address] [place] MCH (RBC) [Entitic mass] 33.4 pg Normal 26.0-34.0 [facility] Comment on above: Order Comment: Speci men Type: BLOOD SPECIMEN Ordering Facility: [facility] Address: [address] [place] [address] Performed By: #### 5 7021-8 #### [facility] CLIA [id number] [address] [place] [address] [place] MCHC (RBC) [Mass/Vol] 33.4 g/dL Normal 30.5-36.0 [facility] Comment on above: Order Comment: Speci men Type: BLOOD SPECIMEN Ordering Facility: [facility] Address: [address] [place] [address] Performed By: #### 5 7021-8 #### [facility] CLIA [id number] [address] [place] [address] [place] MCV (RBC) [Entitic vol] 100.0 fL Normal 80.0-100.0 [facility] Comment on above: Order Comment: Speci men Type: BLOOD SPECIMEN Ordering Facility: [facility] Address: [address] [place] [address] Performed By: #### 5 7021-8 #### [facility] CLIA [id number] [address] [place] [address] [place] Monocytes (Bld) [#/Vol] 0.85 10*3/uL Normal <0.87 [facility] Comment on above: Order Comment: Speci men Type: BLOOD SPECIMEN Ordering Facility: [facility] Address: [address] [place] [address] Performed By: #### 5 7021-8 #### [facility] CLIA [id number] [address] [place] [address] [place] Monocytes/100 WBC (Bld) 13.1 % Normal [facility] Comment on above: Order Comment: Speci men Type: BLOOD SPECIMEN Ordering Facility: [facility] Address: [address] [place] [address] Performed By: #### 5 7021-8 #### [facility] CLIA [id number] [address] [place] [address] [place] Neutrophils (Bld) [#/Vol] 3.16 10*3/uL Normal 1.45-7.50 [facility] Comment on above: Order Comment: Speci men Type: BLOOD SPECIMEN Ordering Facility: [facility] Address: [address] [place] [address] Performed By: #### 5 7021-8 #### [facility] CLIA [id number] [address] [place] [address] [place] Neutrophils/100 WBC (Bld) 48.5 % Normal [facility] Comment on above: Order Comment: Speci men Type: BLOOD SPECIMEN Ordering Facility: [facility] Address: [address] [place] [address] Result Comment: Diff erential confirmed by visual scan of peripheral blood smear slide. Performed By: #### 5 7021-8 #### [facility] CLIA [id number] [address] [place] [address] [place] Nucleated RBC (Bld) [#/Vol] 10*3/uL Normal <0.01 [facility] Comment on above: Order Comment: Speci men Type: BLOOD SPECIMEN Ordering Facility: [facility] Address: [address] [place] [address] Performed By: #### 5 7021-8 #### [facility] CLIA [id number] [address] [place] [address] [place] Nucleated RBC/100 WBC (Bld) [Ratio] 0.0 /100 WBC Normal [facility] Comment on above: Order Comment: Speci men Type: BLOOD SPECIMEN Ordering Facility: [facility] Address: [address] [place] [address] Performed By: #### 5 7021-8 #### [facility] CLIA [id number] [address] [place], [place] [address] [place] Platelet mean volume (Bld) [Entitic vol] 9.2 fL Normal 9.0-12.7 [facility] Comment on above: Order Comment: Speci men Type: BLOOD SPECIMEN Ordering Facility: [facility] Address: [address] [place] [address] Performed By: #### 5 7021-8 #### [facility] CLIA [id number] [address] [place], [place] [address] [place] Platelets (Bld) [#/Vol] 407 10*3/uL High 150-400 [facility] Comment on above: Order Comment: Speci men Type: BLOOD SPECIMEN Ordering Facility: [facility] Address: [address] [place] [address] Performed By: #### 5 7021-8 #### [facility] CLIA [id number] [address] [place], [place] [address] [place] RBC (Bld) [#/Vol] 3.89 10*6/uL Low 4.20-6.[address] [facility] Comment on above: Order Comment: Speci men Type: BLOOD SPECIMEN Ordering Facility: [facility] Address: [address] [place] [address] Performed By: #### 5 7021-8 #### [facility] CLIA [id number] [address] [place] [address] [place] RED CELL MORPH Reviewed: unremarkable Normal [facility] Comment on above: Order Comment: Speci men Type: BLOOD SPECIMEN Ordering Facility: [facility] Address: [address] [place] [address] Performed By: #### 5 7021-8 #### [facility] CLIA [id number] [address] [place] [address] [place] WBC (Bld) [#/Vol] 6.51 10*3/uL Normal 3.70-11.[address] 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 Normal [facility] Comprehensive metabolic 2000 panelon 11-06-2024 Albumin [Mass/Vol] 3.9 g/dL Normal 3.9-4.9 [facility] Comment on above: Order Comment: Speci men Type: BLOOD SPECIMEN Ordering Facility: [facility] Address: [address] [place] [address] Performed By: #### 2 4323-8, 3083-1, , 2132-04 #### [facility] CLIA [id number] [address] [place] [address] [place] ALP [Catalytic activity/Vol] 102 U/L Normal 38-113 [facility] Comment on above: Order Comment: Speci men Type: BLOOD SPECIMEN Ordering Facility: [facility] Address: [address] [place] [address] Performed By: #### 2 4323-8, 3083-, , 2132-04 #### [facility] CLIA [id number] [address] [place], [place] [address] [place] ALT [Catalytic activity/Vol] 14 U/L Normal 10-54 [facility] Comment on above: Order Comment: Speci men Type: BLOOD SPECIMEN Ordering Facility: [facility] Address: [address] [place] [address] Performed By: #### 2 4323-8, 3083-1, , 2132-04 #### [facility] CLIA [id number] [address] [place], [place] [address] [place] Anion gap [Moles/Vol] 11 mmol/L Normal 8-15 [facility] Comment on above: Order Comment: Speci men Type: BLOOD SPECIMEN Ordering Facility: [facility] Address: [address] [place], [place] [address] Performed By: #### 2 4323-8, 3084-1, , 2132-04 #### [facility] CLIA [id number] [address] [place], [place] [address] [place] AST [Catalytic activity/Vol] 20 U/L Normal 14-40 [facility] Comment on above: Order Comment: Speci men Type: BLOOD SPECIMEN Ordering Facility: [facility] Address: [address] [place] [address] Performed By: #### 2 4323-8, 308-1, , 2132-04 #### [facility] CLIA [id number] [address] [place] [address] [place] Bilirubin [Mass/Vol] 0.2 mg/dL Normal 0.2-1.3 [facility] Comment on above: Order Comment: Speci men Type: BLOOD SPECIMEN Ordering Facility: [facility] Address: [address] [place] [address] Performed By: #### 2 4323-8, 3083-, , 2132-04 #### [facility] CLIA [id number] [address] [place] [address] [place] Calcium [Mass/Vol] 9.2 mg/dL Normal 8.5-10.2 [facility] Comment on above: Order Comment: Speci men Type: BLOOD SPECIMEN Ordering Facility: [facility] Address: [address] [place] [address] Performed By: #### 2 4323-8, 3083-08, , 2132-04 #### [facility] CLIA [id number] [address] [place], [place] [address] [place] Chloride [Moles/Vol] 108 mmol/L High 98-107 [facility] Comment on above: Order Comment: Speci men Type: BLOOD SPECIMEN Ordering Facility: [facility] Address: [address] [place] [address] Performed By: #### 2 4323-8, 308-1, , 2132-04 #### [facility] CLIA [id number] [address] [place] [address] [place] CO2 [Moles/Vol] 25 mmol/L Normal 22-30 [facility] Comment on above: Order Comment: Speci men Type: BLOOD SPECIMEN Ordering Facility: [facility] Address: [address] [place] [address] Performed By: #### 2 4323-8, 3084-1, , 2132-04 #### [facility] CLIA [id number] [address] [place] [address] [place] Creatinine [Mass/Vol] 0.66 mg/dL Low 0.73-1.22 [facility] Comment on above: Order Comment: Speci men Type: BLOOD SPECIMEN Ordering Facility: [facility] Address: [address] [place] [address] Performed By: #### 2 4323-8, 3083-08, , 2132-04 #### [facility] CLIA [id number] [address] [place] [address] [place] Creatinine and Glomerular filtration rate.predicted panel (S/P/Bld) 111 mL/min/1.73m??? Normal >=60 [facility] Comment on above: Order Comment: Speci men Type: BLOOD SPECIMEN Ordering Facility: [facility] Address: [address] [place] [address] Result Comment: Jaky mated Glomerular Filtration Rate [...] #### 2 4323-8, 3084-1, , 2132-04 #### [facility] CLIA [id number] [address] [place] [address] [place] Glucose [Mass/Vol] 116 mg/dL High 74-99 [facility] Comment on above: Order Comment: Donnie gonsales Type: BLOOD SPECIMEN Ordering Facility: [facility] Address: [address] [place] [address] Result Comment: The [place] Diabetes Association (ADA) provides guidance for cutoff [...] Standards of Medical Care in Diabetes 2016, [place] [employer] Association. Diabetes Care. 2016.39(Suppl 1). Performed By: #### 2 4323-8, 3083-, , 2132-04 #### [facility] CLIA [id number] [address] [place] [address] [place] Potassium [Moles/Vol] 4.1 mmol/L Normal 3.7-5.1 [facility] Comment on above: Order Comment: Donnie gonsales Type: BLOOD SPECIMEN Ordering Facility: [facility] Address: [address] [place], [place] [address] Performed By: #### 2 4323-8, 30811-07, , 2132-04 #### [facility] CLIA [id number] [address] [place] [address] [place] Protein [Mass/Vol] 6.3 g/dL Normal 6.3-8.0 [facility] Comment on above: Order Comment: Donnie gonsales Type: BLOOD SPECIMEN Ordering Facility: [facility] Address: [address] [place], [place] [address] Performed By: #### 2 4323-8, 308-, , 2132-04 #### [facility] CLIA [id number] [address] [place] [address] [place] Sodium [Moles/Vol] 144 mmol/L Normal 136-144 [facility] Comment on above: Order Comment: Speci men Type: BLOOD SPECIMEN Ordering Facility: [facility] Address: [address] [place] [address] Performed By: #### 2 4323-8, 3084-1, , 2132-04 #### [facility] CLIA [id number] [address] [place] [address] [place] Urea nitrogen [Mass/Vol] 9 mg/dL Normal 9-24 [facility] Comment on above: Order Comment: Speci men Type: BLOOD SPECIMEN Ordering Facility: [facility] Address: [address] [place] [address] Performed By: #### 2 4323-8, 3084-1, , 2132-04 #### [facility] CLIA [id number] [address] [place] [address] [place] HCV Ab Ser Qlon 11-06-2024 HCV Ab Ql (S) Negative Normal Negative [facility] Comment on above: Order Comment: Speci men Type: BLOOD SPECIMEN Ordering Facility: [facility] Address: [address] [place] [address] Result Comment: The result suggests no evidence of infection with Hepatitis C virus. Should recent infection be suspected, repeat testing may be considered 4-6 weeks after this draw. Performed By: #### 1 6128-1 #### [facility] CLIA [id number] [address] [place] [address] [place] HIV 1+2 Ab IA Qlon HIV 1 and 2 Ab IA.rapid Nom (S/P/Bld) Normal [facility] Comment on above: Order Comment: Speci men Type: BLOOD SPECIMENOrdering Facility: [facility] Address: [address] [place] [address] Result Comment: Test not indicated. Performed By: #### 3 1201-7 ####[facility] [id number] [place] [address] [place] HIV 1+2 Ab+HIV1 p24 Ag IA Ql Non-Reactive Normal Nonreactive [facility] Comment on above: Order Comment: Speci men Type: BLOOD SPECIMENOrdering Facility: [facility] Address: [address] [place] [address] Performed By: #### 3 1201-7 ####[facility] [id number] [address] OF MAT HIV immunoassay testing algorithm interpretation (S/P/Bld) [Interp] Normal [facility] Comment on above: Order Comment: Speci men Type: BLOOD SPECIMENOrdering Facility: [facility] Address: [address] [place] [address] Result Comment: No e vidence of HIV-1 or HIV-2 infection. Should recent infection be suspected, repeat testing may be considered 2-3 weeks after this draw. [place] Rev. Code 3701.243(E): This information has been [...] or diagnoses. Performed By: #### 3 1201-7 ####[facility] [id number] [place] [address] [place] HbA1c (Bld)on 11-06-2024 Average glucose Estimated from glycated hemoglobin (Bld) [Mass/Vol] 85 mg/dL Normal [facility] Comment on above: Order Comment: Speci men Type: BLOOD SPECIMEN Ordering Facility: [facility] Address: [address] [place] [address] Result Comment: eAG: (Estimated average glucose) is a calculated value from HgbA1c and is c s s representative of the average blood glucose level in the last 2-3 month period. Performed By: #### 5 5454-3 #### [facility] CLIA [id number] [address] [place] [address] [place] HbA1c (Bld) [Mass fraction] 4.6 % Normal 4.3-5.6 [facility] Comment on above: Order Comment: Speci men Type: BLOOD SPECIMEN Ordering Facility: [facility] Address: [address] [place] [address] Result Comment: [place] Diabetes Association guidelines indicate that patients with HgbA1c in the range 5.7-6.4% are at increased risk for development of diabetes, and intervention by lifestyle modification may be beneficial. HgbA1c greater or equal to 6.5% is considered diagnostic of diabetes. Performed By: #### 5 5454-3 #### [facility] CLIA [id number] [address] [place] [address] [place] Magnesium SerPl-mCncon 11-06 Magnesium [Mass/Vol] 1.0 mg/dL Low 1.7-2.3 [facility] Comment on above: Order Comment: Speci men Type: BLOOD SPECIMEN Ordering Facility: [facility] Address: [address] [place] [address] Performed By: #### 2 4323-8, 3084-1, 11052-2, 2132-9 #### [facility] CLIA [id number] [address] [place] [address] [place] PSA/PROSTATE SPECIFIC ANTIGE N SCREENINGon 11-06-2024 Prostate specific Ag [Mass/Vol] 0.83 ng/mL Normal <2.60 [facility] Comment on above: Order Comment: Speci men Type: BLOOD SPECIMEN Ordering Facility: [facility] Address: [address] [place] [address] Result Comment: Tota l PSA test methodology used is the Electrochemiluminescence Immunoassay by [employer]. Total PSA values by differing methodologies cannot be interchanged. Performed By: #### P SAS1 #### [facility] CLIA [id number] [address] [place] [address] OF [place] Urate [facility] 5 Urate [Mass/Vol] 3.0 mg/dL Low 4.0-8.1 [facility] Comment on above: Order Comment: Speci men Type: BLOOD SPECIMEN Ordering Facility: [facility] Address: [address] [place] [address] Performed By: #### 2 4323-8, 3084-1, , 2132-04 #### [facility] CLIA [id number] [address] [place] [address] [place] Vit B12 [facility] 025 Cobalamin (Vitamin B12) [Mass/Vol] 290 pg/mL Normal 232-1245 [facility] Comment on above: Order Comment: Speci men Type: BLOOD SPECIMEN Ordering Facility: [facility] Address: [address] [place] [address] Performed By: #### 2 4323-8, 3084-1, , 2132-04 #### [facility] CLIA [id number] [address] [place] [address] OF [facility] Comprehensive metabolic 2000 panelon 06-08-2023 Albumin [Mass/Vol] 4.2 g/dL 3.9 - 4.9 g/dL [facility] ALP [Catalytic activity/Vol] 86 U/L 38 - 113 U/L [facility] ALT [Catalytic activity/Vol] 18 U/L 10 - 54 U/L [facility] Anion gap [Moles/Vol] 12 mmol/L 9 - 18 mmol/L [facility] AST [Catalytic activity/Vol] 23 U/L 14 - 40 U/L [facility] Bilirubin [Mass/Vol] 0.6 mg/dL 0.2 - 1 .3 mg/dL [facility] Calcium [Mass/Vol] 9.6 mg/dL 8.5 - 10. 2 mg/dL [facility] Chloride [Moles/Vol] 97 mmol/L 97 - 10 5 mmol/L [facility] CO2 [Moles/Vol] 26 mmol/L 22 - 30 mmol/L [facility] Creatinine [Mass/Vol] 0.81 mg/dL 0.73 - 1.22 mg/dL [facility] Estimated Glomerular Filtration Rate 105 mL/min/1.73m >=60 mL/min/1.73m [facility] Glucose [Mass/Vol] 114 mg/dL High 74 - 99 mg/dL [facility] Potassium [Moles/Vol] 4.1 mmol/L 3.7 - 5.1 mmol/L [facility] Protein [Mass/Vol] 6.6 g/dL 6.3 - 8.0 g/dL [facility] Sodium [Moles/Vol] 135 mmol/L Low 136 - 144 mmol/L [facility] Urea nitrogen [Mass/Vol] 11 mg/dL 9 - 24 mg/dL [facility] Comprehensive metabolic 2000 panelon 03-04-2023 Albumin [Mass/Vol] 4.1 g/dL 3.9 - 4.9 g/dL [facility] ALP [Catalytic activity/Vol] 85 U/L 38 - 113 U/L [facility] ALT [Catalytic activity/Vol] 17 U/L 10 - 54 U/L [facility] Anion gap [Moles/Vol] 9 mmol/L 9 - 18 mmol/L [facility] AST [Catalytic activity/Vol] 29 U/L 14 - 40 U/L [facility] Bilirubin [Mass/Vol] 0.3 mg/dL 0.2 - 1 .3 mg/dL [facility] Calcium [Mass/Vol] 9.4 mg/dL 8.5 - 10. 2 mg/dL [facility] Chloride [Moles/Vol] 102 mmol/L 97 - 10 5 mmol/L [facility] CO2 [Moles/Vol] 23 mmol/L 22 - 30 mmol/L [facility] Creatinine [Mass/Vol] 0.77 mg/dL 0.73 - 1.22 mg/dL [facility] Estimated Glomerular Filtration Rate 107 mL/min/1.73m >=60 mL/min/1.73m [facility] Glucose [Mass/Vol] 100 mg/dL High 74 - 99 mg/dL [facility] Potassium [Moles/Vol] 5.1 mmol/L 3.7 - 5.1 mmol/L [facility] Protein [Mass/Vol] 6.3 g/dL 6.3 - 8.0 g/dL [facility] Sodium [Moles/Vol] 134 mmol/L Low 136 - 144 mmol/L [facility] Urea nitrogen [Mass/Vol] 10 mg/dL 9 - 24 mg/dL [facility] LIPID PANEL, NONFASTINGon Cholesterol [Mass/Vol] 144 mg/dL <200 mg/dL [facility] HDL Cholesterol, Nonfasting 74 mg/dL >39 mg/dL [facility] LDL Cholesterol, Nonfasting 60 mg/dL <100 mg/dL [facility] LDL/HDL Ratio, Nonfasting 0.81 mg/dL <2.54 mg/dL [facility] Non HDL Cholesterol, Nonfasting 70 mg/dL <130 mg/dL [facility] Total Chol/HDL Ratio, Nonfasting 1.95 mg/dL <5.10 mg/dL [facility] Triglycerides, Nonfasting 48 mg/dL <150 mg/dL [facility] VLDL Cholesterol, Nonfasting 10 mg/dL <30 mg/dL [facility] CBC W Auto Differential pane l (Bld)on 03-03-2023 Basophils (Bld) [#/Vol] 0.09 10*3/uL <0.11 k/uL [facility] Basophils/100 WBC (Bld) 1.0 % [facility] Differential cell count method Nom (Bld) Auto [facility] Eosinophils (Bld) [#/Vol] 0.25 10*3/uL <0.46 k/uL [facility] Eosinophils/100 WBC (Bld) 2.9 % [facility] Erythrocyte distribution width (RBC) [Ratio] 17.1 % High 11.5 - 15.0 % [facility] Hematocrit (Bld) [Volume fraction] 38.0 % Low 39.0 - 51.0 % [facility] Hemoglobin (Bld) [Mass/Vol] 12.1 g/dL Low 13.0 - 17.0 g/dL [facility] Immature granulocytes (Bld) [#/Vol] <0.10 k/uL [facility] Immature granulocytes/100 WBC (Bld) 0.2 % [facility] Lymphocytes (Bld) [#/Vol] 2.05 10*3/uL 1.00 - 4.00 k/uL [facility] Lymphocytes/100 WBC (Bld) 23.8 % [facility] MCH (RBC) [Entitic mass] 27.7 pg 26.0 - 34.0 pg [facility] MCHC (RBC) [Mass/Vol] 31.8 g/dL 30.5 - 36.0 g/dL [facility] MCV (RBC) [Entitic vol] 87.0 fL 80.0 - 100.0 fL [facility] Monocytes (Bld) [#/Vol] 0.87 10*3/uL High <0.87 k/uL [facility] Monocytes/100 WBC (Bld) 10.1 % [facility] Neutrophils (Bld) [#/Vol] 5.35 10*3/uL 1.45 - 7.50 k/uL [facility] Neutrophils/100 WBC (Bld) 62.0 % [facility] Nucleated RBC (Bld) [#/Vol] <0.01 k/uL [facility] Nucleated RBC/100 WBC (Bld) [Ratio] 0.0 /100 WBC [facility] Platelet mean volume (Bld) [Entitic vol] 8.8 fL Low 9.0 - 12.7 fL [facility] Platelets (Bld) [#/Vol] 420 10*3/uL High 150 - 400 k/uL [facility] RBC (Bld) [#/Vol] 4.37 10*6/uL 4.20 - 6.0 0 m/uL [facility] WBC (Bld) [#/Vol] 8.63 10*3/uL 3.70 - 11. 00 k/uL [facility] Orthopedic Visit Reporton Orthopedic Visit Report [facility] [address] [place] [address] OFFICE VISIT Date of Service: 12/07/22 MR#: [id number] Acct: [id number] Name: HANSEL LOVE Jr. Rep #: [id number] : 1970 Provider: JUAN Song Age/Sex: 52/M Location: [facility] [place].LARIS[place] Status: Signed Intake Vital [...] states that he was very sick around [facility] and went into septic shock, and was [...] L7000.0750on 12-04-2022 P ELASTASE,FECA 397 Normal >200 [facility] Comment on above: Result Comment: Resu lt Units: ug Elast./g Severe Pancreatic Insufficiency: <100 Moderate Pancreatic Insufficiency: 100 - 200 Normal: >200 Performed By: #### M 100.0605, L7000.0700, L7000.0750 #### [facility] [address] [place], [place], [id number] Calprotectin, Stoolon [address] 44 ug/g Normal 0-120 [facility] Comment on above: Result Comment: Conc entration Interpretation Follow-Up <16 - 50 ug/g Normal None >50 -120 ug/g Borderline Re-evaluate in 4-6 weeks >120 ug/g Abnormal Repeat as clinically indicated Performed at: - [facility] [id number] Grout Pump Operator: Edmundo Panda MD, Phone: [phone] Performed By: #### M 100.0605, L7000.0700, L7000.0750 #### [facility] [address] [place], [place], [id number] Basophil percentageOrdered B y: Renetta Castro on 11-24-2022 Bilirubin [Mass/Vol] 0.20 mg/dL 0.20-1.00 [facility] Comment on above: For patients on eltr ombopag therapy, use of Dimension [place] TBIL is not recommended. Chloride [Moles/Vol] 107 mmol/L 98-107 [facility] Glucose [Mass/Vol] 82 mg/dL 74-106 [facility] Potassium [Moles/Vol] 4.2 mmol/L 3.5-5.1 [facility] Protein [Mass/Vol] 6.7 g/dL 6.4-8.2 [facility] Sodium [Moles/Vol] 136 mmol/L 136-145 [facility] WBC (Bld) [#/Vol] 8.2 10*3/uL 4.4-11.0 [facility] Blood erythrocytes count (nu mber/volume)Ordered By: Renetta Castro on 11-24-2022 RBC (Bld) [#/Vol] 3.24 10*6/uL 4.6-6.2 [facility] Blood hemoglobin measurement (mass/volume)Ordered By: Renetta Castro on 11-24-2022 Hemoglobin (Bld) [Mass/Vol] 10.7 g/dL 13.0-16.5 [facility] Blood platelet mean volumeOr dered By: Renetta Castro on 11-24-2022 Platelet mean volume (Bld) [Entitic vol] 9.2 fL 6.2-12.0 [facility] CBC W/Diff, Automatedon 11-07 Absolute Neut Normal 2.0-7.7 [facility] Comment on above: Result Comment: Canc elled via OM: Order cancelled - Patient discharged Performed By: #### M 100.0605, L7000.0700, L7000.0750 #### [facility] [address] [facility] [address] HCT Normal 40-54 [facility] Comment on above: Result Comment: Canc elled via OM: Order cancelled - Patient discharged Performed By: #### M 100.0605, L7000.0700, L7000.0750 #### [facility] [address] [facility] [address] HGB Normal 13.0-16.5 [facility] Comment on above: Result Comment: Canc elled via OM: Order cancelled - Patient discharged Performed By: #### M 100.0605, L7000.0700, L7000.0750 #### [facility] [address] [facility] [address] MCH Normal 27.0-32.0 [facility] Comment on above: Result Comment: Canc elled via OM: Order cancelled - Patient discharged Performed By: #### M 100.0605, L7000.0700, L7000.0750 #### [facility] [address] [place], [address] MCHC Normal 32-36 [facility] Comment on above: Result Comment: Canc elled via OM: Order cancelled - Patient discharged Performed By: #### M 100.0605, L7000.0700, L7000.0750 #### [facility] [address] [place], [address] MCV Normal 80-94 [facility] Comment on above: Result Comment: Canc elled via OM: Order cancelled - Patient discharged Performed By: #### M 100.0605, L7000.0700, L7000.0750 #### [facility] [address] [place], [address] NEUT% Normal 47-70 [facility] Comment on above: Result Comment: Canc elled via OM: Order cancelled - Patient discharged Performed By: #### M 100.0605, L7000.0700, L7000.0750 #### [facility] [address] [place], [address] PLT Normal 150-450 [facility] Comment on above: Result Comment: Canc elled via OM: Order cancelled - Patient discharged Performed By: #### M 100.0605, L7000.0700, L7000.0750 #### [facility] [address] [place], [address] RBC Normal 4.6-6.2 [facility] Comment on above: Result Comment: Canc elled via OM: Order cancelled - Patient discharged Performed By: #### M 100.0605, L7000.0700, L7000.0750 #### [facility] [address] [place], [address] RDW CV Normal 11.6-14.6 [facility] Comment on above: Result Comment: Canc elled via OM: Order cancelled - Patient discharged Performed By: #### M 100.0605, L7000.0700, L7000.0750 #### [facility] [address] [place], [address] RDW SD Normal 35.1-43.9 [facility] Comment on above: Result Comment: Canc elled via OM: Order cancelled - Patient discharged Performed By: #### M 100.0605, L7000.0700, L7000.0750 #### [facility] [address] [place], [address] WBC Normal 4.4-11.0 [facility] Comment on above: Result Comment: Canc elled via OM: Order cancelled - Patient discharged Performed By: #### M 100.0605, L7000.0700, L7000.0750 #### [facility] [address] [place], [address] [facility] Erythrocyte distribution width (RBC) [Ratio] 13.3 % Normal 11.6-14.6 [facility] Comment on above: Order Comment: Order Date: 11/24/22Order Info: [id number] - CBC Performed By: #### M 100.0605, L7000.0700, L7000.0750 #### [facility] [address] [place], [address] Hematocrit (Bld) [Volume fraction] 33.4 % Low 40-54 [facility] Comment on above: Order Comment: Order Date: 11/24/22Order Info: [id number] - CBC Performed By: #### M 100.0605, L7000.0700, L7000.0750 #### [facility] [address] [place], [address] Hemoglobin (Bld) [Mass/Vol] 10.7 g/dL Low 13.0-16.5 [facility] Comment on above: Order Comment: Order Date: 11/24/22Order Info: [id number] - CBC Performed By: #### M 100.0605, L7000.0700, L7000.0750 #### [facility] [address] [place], [address] MCH (RBC) [Entitic mass] 33.0 pg High 27.0-32.0 [facility] Comment on above: Order Comment: Order Date: 11/24/22Order Info: [id number] - CBC Performed By: #### M 100.0605, L7000.0700, L7000.0750 #### [facility] [address] [place], [address] MCHC (RBC) [Mass/Vol] 32.0 g/dL Normal 32-36 [facility] Comment on above: Order Comment: Order Date: 11/24/22Order Info: [id number] - CBC Performed By: #### M 100.0605, L7000.0700, L7000.0750 #### [facility] [address] [place], [address] MCV (RBC) [Entitic vol] 103.1 fL High 80-94 [facility] Comment on above: Order Comment: Order Date: 11/24/22Order Info: [id number] - CBC Performed By: #### M 100.0605, L7000.0700, L7000.0750 #### [facility] [address] [place], [address] Platelet mean volume (Bld) [Entitic vol] 9.2 fL Normal 6.2-12.0 [facility] Comment on above: Order Comment: Order Date: 11/24/22Order Info: [id number] - CBC Performed By: #### M 100.0605, L7000.0700, L7000.0750 #### [facility] [address] [place], [address] Platelets (Bld) [#/Vol] 637 10*3/uL High 150-450 [facility] Comment on above: Order Comment: Order Date: 11/24/22Order Info: [id number] - CBC Performed By: #### M 100.0605, L7000.0700, L7000.0750 #### [facility] [address] [place], [address] RBC (Bld) [#/Vol] 3.24 10*6/uL Low 4.6-6.2 [facility] Comment on above: Order Comment: Order Date: 11/24/22Order Info: [id number] - CBC Performed By: #### M 100.0605, L7000.0700, L7000.0750 #### [facility] [address] [place], [address] RDW SD 50.6 fl High 35.1-43.9 [facility] Comment on above: Order Comment: Order Date: 11/24/22Order Info: [id number] - CBC Performed By: #### M 100.0605, L7000.0700, L7000.0750 #### [facility] [address] [place], [address] WBC (Bld) [#/Vol] 8.2 10*3/uL Normal 4.4-11.0 [facility] Comment on above: Order Comment: Order Date: 11/24/22Order Info: [id number] - CBC Performed By: #### M 100.0605, L7000.0700, L7000.0750 #### [facility] [address] [place], [address] Comprehensive Metabolic Prof ilon 11-24-2022 Albumin [Mass/Vol] 3.4 g/dL Normal 3.2-5.0 [facility] Comment on above: Order Comment: Order Date: 11/24/22Order Info: [id number] - CMPOrder Info: [id number] - MG Performed By: #### M 100.0605, L7000.0700, L7000.0750 #### [facility] [address] [place], [address] Albumin/Globulin [Mass ratio] 1.0 {ratio} Normal 0.9-2.4 [facility] Comment on above: Order Comment: Order Date: 11/24/22Order Info: [id number] - CMPOrder Info: [id number] - MG Performed By: #### M 100.0605, L7000.0700, L7000.0750 #### [facility] [address] [place], [address] ALK P 102 U/L Normal 45-117 [facility] Comment on above: Order Comment: Order Date: 11/24/22Order Info: [id number] - CMPOrder Info: [id number] - MG Performed By: #### M 100.0605, L7000.0700, L7000.0750 #### [facility] [address] [place], [address] ALT [Catalytic activity/Vol] 23 U/L Normal 16-61 [facility] Comment on above: Order Comment: Order Date: 11/24/22Order Info: [id number] - CMPOrder Info: [id number] - MG Performed By: #### M 100.0605, L7000.0700, L7000.0750 #### [facility] [address] [place], [address] AST [Catalytic activity/Vol] 18 U/L Normal 15-37 [facility] Comment on above: Order Comment: Order Date: 11/24/22Order Info: [id number] - CMPOrder Info: [id number] - MG Performed By: #### M 100.0605, L7000.0700, L7000.0750 #### [facility] [address] [place], [address] Bilirubin [Mass/Vol] 0.20 mg/dL Normal 0.20-1.00 [facility] Comment on above: Order Comment: Order Date: 11/24/22Order Info: [id number] - CMPOrder Info: [id number] - MG Result Comment: For patients on eltrombopag therapy, use of Dimension [place] TBIL is not recommended. Performed By: #### M 100.0605, L7000.0700, L7000.0750 #### [facility] [address] [place], [address] BUN/CRE 17.5 RATIO Normal 10-20 [facility] Comment on above: Order Comment: Order Date: 11/24/22Order Info: [id number] - CMPOrder Info: [id number] - MG Performed By: #### M 100.0605, L7000.0700, L7000.0750 #### [facility] [address] [place], [address] CA,Total 8.8 mg/dL Normal 8.5-10.1 [facility] Comment on above: Order Comment: Order Date: 11/24/22Order Info: [id number] - CMPOrder Info: [id number] - MG Performed By: #### M 100.0605, L7000.0700, L7000.0750 #### [facility] [address] [place], [address] Chloride [Moles/Vol] 107 mmol/L Normal 98-107 [facility] Comment on above: Order Comment: Order Date: 11/24/22Order Info: [id number] - CMPOrder Info: [id number] - MG Performed By: #### M 100.0605, L7000.0700, L7000.0750 #### [facility] [address] [place], [address] CO2 [Moles/Vol] 25.0 mmol/L Normal 21.0-32.0 [facility] Comment on above: Order Comment: Order Date: 11/24/22Order Info: [id number] - CMPOrder Info: [id number] - MG Performed By: #### M 100.0605, L7000.0700, L7000.0750 #### [facility] [address] [place], [address] Creatinine [Mass/Vol] 0.74 mg/dL Normal 0.70-1.30 [facility] Comment on above: Order Comment: Order Date: 11/24/22Order Info: [id number] - CMPOrder Info: [id number] - MG Result Comment: The validity of the calculated GFR GFRAA in patients over 70 years has not been determined. Clinical correlation is essential. Performed By: #### M 100.0605, L7000.0700, L7000.0750 #### [facility] [address] [place], [address] EST GFR - AA 142 mL/min Normal >60 [facility] Comment on above: Order Comment: Order Date: 11/24/22Order Info: [id number] - CMPOrder Info: [id number] - MG Result Comment: Afri can [place] GFR Calc Performed By: #### M 100.0605, L7000.0700, L7000.0750 #### [facility] [address] [place], [address] GAP 4 Low 5-15 [facility] Comment on above: Order Comment: Order Date: 11/24/22Order Info: [id number] - CMPOrder Info: [id number] - MG Performed By: #### M 100.0605, L7000.0700, L7000.0750 #### [facility] [address] [place], [address] GFR/1.73 sq M.predicted among non-blacks MDRD (S/P/Bld) [Vol rate/Area] 117 mL/min/{1.73_m2} Normal >60 [facility] Comment on above: Order Comment: Order Date: 11/24/22Order Info: [id number] - CMPOrder Info: [id number] - MG Result Comment: Non- GFR Calc Performed By: #### M 100.0605, L7000.0700, L7000.0750 #### [facility] [address] [place], [address] Globulin (S) [Mass/Vol] 3.3 g/dL Normal 2.2-4.2 [facility] Comment on above: Order Comment: Order Date: 11/24/22Order Info: [id number] - CMPOrder Info: [id number] - MG Performed By: #### M 100.0605, L7000.0700, L7000.0750 #### [facility] [address] [place], [address] Glucose [Mass/Vol] 82 mg/dL Normal 74-106 [facility] Comment on above: Order Comment: Order Date: 11/24/22Order Info: [id number] - CMPOrder Info: [id number] - MG Performed By: #### M 100.0605, L7000.0700, L7000.0750 #### [facility] [address] [place], [address] Potassium [Moles/Vol] 4.2 mmol/L Normal 3.5-5.1 [facility] Comment on above: Order Comment: Order Date: 11/24/22Order Info: [id number] - CMPOrder Info: [id number] - MG Performed By: #### M 100.0605, L7000.0700, L7000.0750 #### [facility] [address] [place], [address] Sodium [Moles/Vol] 136 mmol/L Normal 136-145 [facility] Comment on above: Order Comment: Order Date: 11/24/22Order Info: [id number] - CMPOrder Info: [id number] - MG Performed By: #### M 100.0605, L7000.0700, L7000.0750 #### [facility] [address] [place], [address] T PROT 6.7 g/dL Normal 6.4-8.2 [facility] Comment on above: Order Comment: Order Date: 11/24/22Order Info: [id number] - CMPOrder Info: [id number] - MG Performed By: #### M 100.0605, L7000.0700, L7000.0750 #### [facility] [address] [place], [address] Urea nitrogen [Mass/Vol] 13 mg/dL Normal 7-18 [facility] Comment on above: Order Comment: Order Date: 11/24/22Order Info: [id number] - CMPOrder Info: [id number] - MG Performed By: #### M 100.0605, L7000.0700, L7000.0750 #### [facility] [address] [place], [address] ALB Normal 3.2-5.0 [facility] Comment on above: Result Comment: Canc elled via OM: Order cancelled - Patient discharged Performed By: #### L 500.4050 #### [facility] [address] [place], [address] ALK P Normal 45-117 [facility] Comment on above: Result Comment: Canc elled via OM: Order cancelled - Patient discharged Performed By: #### L 500.4050 #### [facility] [address] [place], [address] ALT Normal 16-61 [facility] Comment on above: Result Comment: Canc elled via OM: Order cancelled - Patient discharged Performed By: #### L 500.4050 #### [facility] [address] [place], [address] AST Normal 15-37 [facility] Comment on above: Result Comment: Canc elled via OM: Order cancelled - Patient discharged Performed By: #### L 500.4050 #### [facility] [address] [place], [address] BUN Normal 7-18 [facility] Comment on above: Result Comment: Canc elled via OM: Order cancelled - Patient discharged Performed By: #### L 500.4050 #### [facility] [address] [place], [address] BUN/CRE Normal 10-20 [facility] Comment on above: Result Comment: Canc elled via OM: Order cancelled - Patient discharged Performed By: #### L 500.4050 #### [facility] [address] [place], [address] CA,Total Normal 8.5-10.1 [facility] [facility] Comment on above: Result Comment: Canc elled via OM: Order cancelled - Patient discharged Performed By: #### L 500.4050 #### [facility] [address] [place], [address] CL Normal 98-107 [facility] Comment on above: Result Comment: Canc elled via OM: Order cancelled - Patient discharged Performed By: #### L 500.4050 #### [facility] [address] [place], [address] CO2 Normal 21.0-32.0 [facility] Comment on above: Result Comment: Canc elled via OM: Order cancelled - Patient discharged Performed By: #### L 500.4050 #### [facility] [address] [place], [address] CREAT,SERUM Normal 0.70-1.30 [facility] Comment on above: Result Comment: Canc elled via OM: Order cancelled - Patient discharged Performed By: #### L 500.4050 #### [facility] [address] [place], [address] EST GFR Normal >60 [facility] Comment on above: Result Comment: Canc elled via OM: Order cancelled - Patient discharged Performed By: #### L 500.4050 #### [facility] [address] [place], [address] EST GFR - AA Normal >60 [facility] Comment on above: Result Comment: Canc elled via OM: Order cancelled - Patient discharged Performed By: #### L 500.4050 #### [facility] [address] [place], [address] GAP Normal 5-15 [facility] Comment on above: Result Comment: Canc elled via OM: Order cancelled - Patient discharged Performed By: #### L 500.4050 #### [facility] [address] [place], [address] GLU Normal 74-106 [facility] Comment on above: Result Comment: Canc elled via OM: Order cancelled - Patient discharged Performed By: #### L 500.4050 #### [facility] [address] [place], [address] Potassium Normal 3.5-5.1 [facility] Comment on above: Result Comment: Canc elled via OM: Order cancelled - Patient discharged Performed By: #### L 500.4050 #### [facility] [address] [place], [address] T BILI Normal 0.20-1.00 [facility] Comment on above: Result Comment: Canc elled via OM: Order cancelled - Patient discharged Performed By: #### L 500.4050 #### [facility] [address] [place], [address] T PROT Normal 6.4-8.2 [facility] Comment on above: Result Comment: Canc elled via OM: Order cancelled - Patient discharged Performed By: #### L 500.4050 #### [facility] [address] [place], [address] Comprehensive Metabolic Profil Normal 136-145 [facility] Comment on above: Result Comment: Canc elled via OM: Order cancelled - Patient discharged Performed By: #### L 500.4050 #### [facility] [address] [place], [address] Determination of erythrocyte mean corpuscular volume (MCV)Ordered By: Renetta Castro on 11-24-2022 MCV (RBC) [Entitic vol] 103.1 fL 80-94 [facility] Hematocrit Auto (Bld) [Volum e fraction]Ordered By: Renetta Castro on 11-24-2022 Hematocrit (Bld) [Volume fraction] 33.4 % 40-54 [facility] - Chemistry and C hemistry - challengeOrdered By: Renetta Castro on 11-24-2022 ALP [Catalytic activity/Vol] 102 U/L 45-117 [facility] ALT [Catalytic activity/Vol] 23 U/L 16-61 [facility] CO2 [Moles/Vol] 25.0 mmol/L 21.0-32.0 [facility] Globulin (S) [Mass/Vol] 3.3 g/dL 2.2-4.2 [facility] Magnesium [Mass/Vol] 1.2 mg/dL 1.6-2.6 [facility] Urea nitrogen/Creatinine [Mass ratio] 17.5 mg/mg 10-20 [facility] - Hematology and Cell countsOrdered By: Renetta Castro on 11-24-2022 Erythrocyte distribution width (RBC) [Entitic vol] 50.6 fL 35.1-43.9 [facility] Erythrocyte distribution width (RBC) [Ratio] 13.3 % 11.6-14.6 [facility] MCH (RBC) [Entitic mass] 33.0 pg 27.0-32.0 [facility] MCHC Auto (RBC) [Mass/Vol]Or dered By: Renetta Castro on 11-24-2022 MCHC (RBC) [Mass/Vol] 32.0 g/dL 32-36 [facility] Magnesiumon 11-24-2022 Magnesium [Mass/Vol] 1.2 mg/dL Low 1.6-2.6 [facility] Comment on above: Order Comment: Order Date: 11/24/22Order Info: [id number] - CMPOrder Info: [id number] - MG Performed By: #### M 100.0605, L7000.0700, L7000.0750 #### [facility] [address] [place], [address] No Panel InformationOrdered By: Renetta Castro on 11-24-2022 Estimated GFR (MDRD) Amer 142 mL/min >60 [facility] Comment on above: GFR Calc Estimated GFR (MDRD) Non-Af Amer 117 mL/min >60 [facility] Comment on above: Non- GFR Calc Platelets bldOrdered By: Zoltan Castro on 11-24-2022 Platelets (Bld) [#/Vol] 637 10*3/uL 150-450 [facility] Serum or plasma albumin christy urement (mass/volume)Ordered By: Renetta Castro on 11-24-2022 Albumin [Mass/Vol] 3.4 g/dL 3.2-5.0 [facility] Serum or plasma albumin/glob ulin mass ratioOrdered By: Renetta Castro on 11-24-2022 Albumin/Globulin [Mass ratio] 1.0 {ratio} 0.9-2.4 [facility] Serum or plasma calcium christy urement (mass/volume)Ordered By: Renetta Castro on 11-24-2022 Calcium [Mass/Vol] 8.8 mg/dL 8.5-10.1 [facility] Serum or plasma creatinine m easurement (mass/volume)Ordered By: Renetta Castro on 11-24-2022 Creatinine [Mass/Vol] 0.74 mg/dL 0.70-1.30 [facility] Comment on above: The validity of the calculated GFR & GFRAA in patients over 70 years has not been determined. Clinical correlation is essential. Serum or plasma urea nitroge n measurement (mass/volume)Ordered By: Renetta Castro on 11-24-2022 Urea nitrogen [Mass/Vol] 13 mg/dL -18 [facility] Thin prep Papanicolaou smear with manual screeningOrdered By: Renetta Castro on 11-24-2022 Thin prep Papanicolaou smear with manual screening 18 U/L 15-37 [facility] Thin prep Papanicolaou smear with manual screening 4 5-15 [facility] CBC W/Diff, Automatedon 04- Absolute Neut Normal 2.0-7.7 [facility] Comment on above: Result Comment: Canc elled via OM: Order cancelled - Patient discharged Performed By: #### L 100.0100 #### [facility] [address] [place], [address] HCT Normal 40-54 [facility] Comment on above: Result Comment: Canc elled via OM: Order cancelled - Patient discharged Performed By: #### L 100.0100 #### [facility] [address] [place], [address] HGB Normal 13.0-16.5 [facility] Comment on above: Result Comment: Canc elled via OM: Order cancelled - Patient discharged Performed By: #### L 100.0100 #### [facility] [address] [place], [address] MCH Normal 27.0-32.0 [facility] Comment on above: Result Comment: Canc elled via OM: Order cancelled - Patient discharged Performed By: #### L 100.0100 #### [facility] [address] [place], [address] MCHC Normal 32-36 [facility] Comment on above: Result Comment: Canc elled via OM: Order cancelled - Patient discharged Performed By: #### L 100.0100 #### [facility] [address] [place], [address] MCV Normal 80-94 [facility] Comment on above: Result Comment: Canc elled via OM: Order cancelled - Patient discharged Performed By: #### L 100.0100 #### [facility] [address] [place], [address] NEUT% Normal 47-70 [facility] Comment on above: Result Comment: Canc elled via OM: Order cancelled - Patient discharged Performed By: #### L 100.0100 #### [facility] [address] [place], [address] PLT Normal 150-450 [facility] Comment on above: Result Comment: Canc elled via OM: Order cancelled - Patient discharged Performed By: #### L 100.0100 #### [facility] [address] [place], [address] RBC Normal 4.6-6.2 [facility] Comment on above: Result Comment: Canc elled via OM: Order cancelled - Patient discharged Performed By: #### L 100.0100 #### [facility] [address] [place], [address] RDW CV Normal 11.6-14.6 [facility] Comment on above: Result Comment: Canc elled via OM: Order cancelled - Patient discharged Performed By: #### L 100.0100 #### [facility] [address] [place], [address] RDW SD Normal 35.1-43.9 [facility] Comment on above: Result Comment: Canc elled via OM: Order cancelled - Patient discharged Performed By: #### L 100.0100 #### [facility] [address] [place], [address] WBC Normal 4.4-11.0 [facility] Comment on above: Result Comment: Canc elled via OM: Order cancelled - Patient discharged Performed By: #### L 100.0100 #### [facility] [address] [place], [address] Comprehensive Metabolic Prof ilon 11-23-2022 ALB Normal 3.2-5.0 [facility] Comment on above: Result Comment: Canc elled via OM: Order cancelled - Patient discharged Performed By: #### L 500.4050 #### [facility] [address] [place], [address] ALK P Normal 45-117 [facility] Comment on above: Result Comment: Canc elled via OM: Order cancelled - Patient discharged Performed By: #### L 500.4050 #### [facility] [address] [place], [address] ALT Normal 16-61 [facility] Comment on above: Result Comment: Canc elled via OM: Order cancelled - Patient discharged Performed By: #### L 500.4050 #### [facility] [address] [place], [address] AST Normal 15-37 [facility] Comment on above: Result Comment: Canc elled via OM: Order cancelled - Patient discharged Performed By: #### L 500.4050 #### [facility] [address] [place], [address] BUN Normal 7-18 [facility] Comment on above: Result Comment: Canc elled via OM: Order cancelled - Patient discharged Performed By: #### L 500.4050 #### [facility] [address] [place], [address] BUN/CRE Normal 10-20 [facility] Comment on above: Result Comment: Canc elled via OM: Order cancelled - Patient discharged Performed By: #### L 500.4050 #### [facility] [address] [place], [address] CA,Total Normal 8.5-10.1 [facility] Comment on above: Result Comment: Canc elled via OM: Order cancelled - Patient discharged Performed By: #### L 500.4050 #### [facility] [address] [place], [address] CL Normal 98-107 [facility] Comment on above: Result Comment: Canc elled via OM: Order cancelled - Patient discharged Performed By: #### L 500.4050 #### [facility] [address] [place], [address] CO2 Normal 21.0-32.0 [facility] Comment on above: Result Comment: Canc elled via OM: Order cancelled - Patient discharged Performed By: #### L 500.4050 #### [facility] [address] [place], [address] CREAT,SERUM Normal 0.70-1.30 [facility] Comment on above: Result Comment: Canc elled via OM: Order cancelled - Patient discharged Performed By: #### L 500.4050 #### [facility] [address] [place], [address] EST GFR Normal >60 [facility] Comment on above: Result Comment: Canc elled via OM: Order cancelled - Patient discharged Performed By: #### L 500.4050 #### [facility] [address] [place], [address] EST GFR - AA Normal >60 [facility] Comment on above: Result Comment: Canc elled via OM: Order cancelled - Patient discharged Performed By: #### L 500.4050 #### [facility] [address] [place], [address] GAP Normal 5-15 [facility] Comment on above: Result Comment: Canc elled via OM: Order cancelled - Patient discharged Performed By: #### L 500.4050 #### [facility] [address] [place], [address] GLU Normal 74-106 [facility] Comment on above: Result Comment: Canc elled via OM: Order cancelled - Patient discharged Performed By: #### L 500.4050 #### [facility] [address] [place], [address] Potassium Normal 3.5-5.1 [facility] Comment on above: Result Comment: Canc elled via OM: Order cancelled - Patient discharged Performed By: #### L 500.4050 #### [facility] [address] [place], [address] T BILI Normal 0.20-1.00 [facility] Comment on above: Result Comment: Canc elled via OM: Order cancelled - Patient discharged Performed By: #### L 500.4050 #### [facility] [address] [place], [address] T PROT Normal 6.4-8.2 [facility] Comment on above: Result Comment: Canc elled via OM: Order cancelled - Patient discharged Performed By: #### L 500.4050 #### [facility] [address] [place], [address] Comprehensive Metabolic Profil Normal 136-145 [facility] Comment on above: Result Comment: Canc elled via OM: Order cancelled - Patient discharged Performed By: #### L 500.4050 #### [facility] [address] [place], [address] No Panel InformationOrdered By: Gino Friend on 11-23-2022 Stool Calprotectin 44 ug/g 0-120 [facility] Comment on above: Concentration Interp retation Follow-Up<16 - 50 ug/g Normal None>50 -120 ug/g Borderline Re-evaluate in 4-6 weeks >120 ug/g Abnormal Repeat as clinically indicatedPerformed at: - [facility] [id number] Director: Edmundo Panda MD, Phone: [phone] Stool Lactoferrin/WBCon 11-07 [facility] Normal Reference Ran ge = Negative Fecal WBC Lactoferrin Negative: No Fecal WBC Lactoferrin present Normal [facility] Comment on above: Performed By: #### M 100.0605, L7000.0700, L7000.0750 #### [facility] [address] [place], [address] Stool lactoferrin detection by immunoassayOrdered By: Gino Briscoe on 11-23-2022 Lactoferrin [place] Ql (Stl) [facility] CBC W/Diff, Automatedon 11-07 Absolute Neut Normal 2.0-7.7 [facility] Comment on above: Result Comment: Canc elled via OM: Order cancelled - Patient discharged Performed By: #### L 100.0100 #### [facility] [address] [place], [address] HCT Normal 40-54 [facility] Comment on above: Result Comment: Canc elled via OM: Order cancelled - Patient discharged Performed By: #### L 100.0100 #### [facility] [address] [place], [address] HGB Normal 13.0-16.5 [facility] Comment on above: Result Comment: Canc elled via OM: Order cancelled - Patient discharged Performed By: #### L 100.0100 #### [facility] [address] [place], [address] MCH Normal 27.0-32.0 [facility] Comment on above: Result Comment: Canc elled via OM: Order cancelled - Patient discharged Performed By: #### L 100.0100 #### [facility] [address] [place], [address] MCHC Normal 32-36 [facility] Comment on above: Result Comment: Canc elled via OM: Order cancelled - Patient discharged Performed By: #### L 100.0100 #### [facility] [address] [place], [address] MCV Normal 80-94 [facility] Comment on above: Result Comment: Canc elled via OM: Order cancelled - Patient discharged Performed By: #### L 100.0100 #### [facility] [address] [place], [address] NEUT% Normal 47-70 [facility] Comment on above: Result Comment: Canc elled via OM: Order cancelled - Patient discharged Performed By: #### L 100.0100 #### [facility] [address] [place], [address] PLT Normal 150-450 [facility] Comment on above: Result Comment: Canc elled via OM: Order cancelled - Patient discharged Performed By: #### L 100.0100 #### [facility] [address] [place], [address] RBC Normal 4.6-6.2 [facility] Comment on above: Result Comment: Canc elled via OM: Order cancelled - Patient discharged Performed By: #### L 100.0100 #### [facility] [address] [place], [address] RDW CV Normal 11.6-14.6 [facility] Comment on above: Result Comment: Canc elled via OM: Order cancelled - Patient discharged Performed By: #### L 100.0100 #### [facility] [address] [place], [address] RDW SD Normal 35.1-43.9 [facility] Comment on above: Result Comment: Canc elled via OM: Order cancelled - Patient discharged Performed By: #### L 100.0100 #### [facility] [address] [place], [address] WBC Normal 4.4-11.0 [facility] Comment on above: Result Comment: Canc elled via OM: Order cancelled - Patient discharged Performed By: #### L 100.0100 #### [facility] [address] [place], [address] Comprehensive Metabolic Prof ilon 11-22-2022 ALB Normal 3.2-5.0 [facility] Comment on above: Result Comment: Canc elled via OM: Order cancelled - Patient discharged Performed By: #### M 100.0605, L7000.0700, L7000.0750 #### [facility] [address] [place], [address] ALK P Normal 45-117 [facility] Comment on above: Result Comment: Canc elled via OM: Order cancelled - Patient discharged Performed By: #### M 100.0605, L7000.0700, L7000.0750 #### [facility] [address] [place], [address] ALT Normal 16-61 [facility] Comment on above: Result Comment: Canc elled via OM: Order cancelled - Patient discharged Performed By: #### M 100.0605, L7000.0700, L7000.0750 #### [facility] [address] [place], [address] AST Normal 15-37 [facility] Comment on above: Result Comment: Canc elled via OM: Order cancelled - Patient discharged Performed By: #### M 100.0605, L7000.0700, L7000.0750 #### [facility] [address] [place], [address] BUN Normal 7-18 [facility] Comment on above: Result Comment: Canc elled via OM: Order cancelled - Patient discharged Performed By: #### M 100.0605, L7000.0700, L7000.0750 #### [facility] [address] [place], [address] BUN/CRE Normal 10-20 [facility] Comment on above: Result Comment: Canc elled via OM: Order cancelled - Patient discharged Performed By: #### M 100.0605, L7000.0700, L7000.0750 #### [facility] [address] [place], [address] CA,Total Normal 8.5-10.1 [facility] Comment on above: Result Comment: Canc elled via OM: Order cancelled - Patient discharged Performed By: #### M 100.0605, L7000.0700, L7000.0750 #### [facility] [address] [place], [address] CL Normal 98-107 [facility] Comment on above: Result Comment: Canc elled via OM: Order cancelled - Patient discharged Performed By: #### M 100.0605, L7000.0700, L7000.0750 #### [facility] [address] [place], [address] CO2 Normal 21.0-32.0 [facility] Comment on above: Result Comment: Canc elled via OM: Order cancelled - Patient discharged Performed By: #### M 100.0605, L7000.0700, L7000.0750 #### [facility] [address] [place], [address] CREAT,SERUM Normal 0.70-1.30 [facility] Comment on above: Result Comment: Canc elled via OM: Order cancelled - Patient discharged Performed By: #### M 100.0605, L7000.0700, L7000.0750 #### [facility] [address] [place], [address] EST GFR Normal >60 [facility] Comment on above: Result Comment: Canc elled via OM: Order cancelled - Patient discharged Performed By: #### M 100.0605, L7000.0700, L7000.0750 #### [facility] [address] [place], [address] EST GFR - AA Normal >60 [facility] Comment on above: Result Comment: Canc elled via OM: Order cancelled - Patient discharged Performed By: #### M 100.0605, L7000.0700, L7000.0750 #### [facility] [address] [place], [address] GAP Normal 5-15 [facility] Comment on above: Result Comment: Canc elled via OM: Order cancelled - Patient discharged Performed By: #### M 100.0605, L7000.0700, L7000.0750 #### [facility] [address] [place], [address] GLU Normal 74-106 [facility] Comment on above: Result Comment: Canc elled via OM: Order cancelled - Patient discharged Performed By: #### M 100.0605, L7000.0700, L7000.0750 #### [facility] [address] [place], [address] Potassium Normal 3.5-5.1 [facility] Comment on above: Result Comment: Canc elled via OM: Order cancelled - Patient discharged Performed By: #### M 100.0605, L7000.0700, L7000.0750 #### [facility] [address] [place], [address] T BILI Normal 0.20-1.00 [facility] Comment on above: Result Comment: Canc elled via OM: Order cancelled - Patient discharged Performed By: #### M 100.0605, L7000.0700, L7000.0750 #### [facility] [address] [place], [address] T PROT Normal 6.4-8.2 [facility] Comment on above: Result Comment: Canc elled via OM: Order cancelled - Patient discharged Performed By: #### M 100.0605, L7000.0700, L7000.0750 #### [facility] [address] [place], [address] Comprehensive Metabolic Profil Normal 136-145 [facility] Comment on above: Result Comment: Canc elled via OM: Order cancelled - Patient discharged Performed By: #### M 100.0605, L7000.0700, L7000.0750 #### [facility] [address] [place], [address] CBC W/Diff, Automatedon 04- Absolute Neut Normal 2.0-7.7 [facility] Comment on above: Result Comment: Canc elled via OM: Order cancelled - Patient discharged Performed By: #### L 100.0100 #### [facility] [address] [place], [address] HCT Normal 40-54 [facility] Comment on above: Result Comment: Canc elled via OM: Order cancelled - Patient discharged Performed By: #### L 100.0100 #### [facility] [address] [place], [address] HGB Normal 13.0-16.5 [facility] Comment on above: Result Comment: Canc elled via OM: Order cancelled - Patient discharged Performed By: #### L 100.0100 #### [facility] [address] [place], [address] MCH Normal 27.0-32.0 [facility] Comment on above: Result Comment: Canc elled via OM: Order cancelled - Patient discharged Performed By: #### L 100.0100 #### [facility] [address] [place], [address] MCHC Normal 32-36 [facility] Comment on above: Result Comment: Canc elled via OM: Order cancelled - Patient discharged Performed By: #### L 100.0100 #### [facility] [address] [place], [address] MCV Normal 80-94 [facility] Comment on above: Result Comment: Canc elled via OM: Order cancelled - Patient discharged Performed By: #### L 100.0100 #### [facility] [address] [place], [address] NEUT% Normal 47-70 [facility] Comment on above: Result Comment: Canc elled via OM: Order cancelled - Patient discharged Performed By: #### L 100.0100 #### [facility] [address] [place], [address] PLT Normal 150-450 [facility] Comment on above: Result Comment: Canc elled via OM: Order cancelled - Patient discharged Performed By: #### L 100.0100 #### [facility] [address] [place], [address] RBC Normal 4.6-6.2 [facility] Comment on above: Result Comment: Canc elled via OM: Order cancelled - Patient discharged Performed By: #### L 100.0100 #### [facility] [address] [place], [address] RDW CV Normal 11.6-14.6 [facility] Comment on above: Result Comment: Canc elled via OM: Order cancelled - Patient discharged Performed By: #### L 100.0100 #### [facility] [address] [place], [address] RDW SD Normal 35.1-43.9 [facility] Comment on above: Result Comment: Canc elled via OM: Order cancelled - Patient discharged Performed By: #### L 100.0100 #### [facility] [address] [place], [address] WBC Normal 4.4-11.0 [facility] Comment on above: Result Comment: Canc elled via OM: Order cancelled - Patient discharged Performed By: #### L 100.0100 #### [facility] [address] [place], [address] Comprehensive Metabolic Prof mari 11-21-2022 ALB Normal 3.2-5.0 [facility] Comment on above: Result Comment: Canc elled via OM: Order cancelled - Patient discharged Performed By: #### M 100.0605, L7000.0700, L7000.0750 #### [facility] [address] [place], [address] ALK P Normal 45-117 [facility] Comment on above: Result Comment: Canc elled via OM: Order cancelled - Patient discharged Performed By: #### M 100.0605, L7000.0700, L7000.0750 #### [facility] [address] [place], [address] ALT Normal 16-61 [facility] Comment on above: Result Comment: Canc elled via OM: Order cancelled - Patient discharged Performed By: #### M 100.0605, L7000.0700, L7000.0750 #### [facility] [address] [place], [address] AST Normal 15-37 [facility] Comment on above: Result Comment: Canc elled via OM: Order cancelled - Patient discharged Performed By: #### M 100.0605, L7000.0700, L7000.0750 #### [facility] [address] [place], [address] BUN Normal 7-18 [facility] Comment on above: Result Comment: Canc elled via OM: Order cancelled - Patient discharged Performed By: #### M 100.0605, L7000.0700, L7000.0750 #### [facility] [address] [place], [address] BUN/CRE Normal 10-20 [facility] Comment on above: Result Comment: Canc elled via OM: Order cancelled - Patient discharged Performed By: #### M 100.0605, L7000.0700, L7000.0750 #### [facility] [address] [place], [address] CA,Total Normal 8.5-10.1 [facility] Comment on above: Result Comment: Canc elled via OM: Order cancelled - Patient discharged Performed By: #### M 100.0605, L7000.0700, L7000.0750 #### [facility] [address] [place], [address] CL Normal 98-107 [facility] Comment on above: Result Comment: Canc elled via OM: Order cancelled - Patient discharged Performed By: #### M 100.0605, L7000.0700, L7000.0750 #### [facility] [address] [place], [address] CO2 Normal 21.0-32.0 [facility] Comment on above: Result Comment: Canc elled via OM: Order cancelled - Patient discharged Performed By: #### M 100.0605, L7000.0700, L7000.0750 #### [facility] [address] [place], [address] CREAT,SERUM Normal 0.70-1.30 [facility] Comment on above: Result Comment: Canc elled via OM: Order cancelled - Patient discharged Performed By: #### M 100.0605, L7000.0700, L7000.0750 #### [facility] [address] [place], [address] EST GFR Normal >60 [facility] Comment on above: Result Comment: Canc elled via OM: Order cancelled - Patient discharged Performed By: #### M 100.0605, L7000.0700, L7000.0750 #### [facility] [address] [place], [address] EST GFR - AA Normal >60 [facility] Comment on above: Result Comment: Canc elled via OM: Order cancelled - Patient discharged Performed By: #### M 100.0605, L7000.0700, L7000.0750 #### [facility] [address] [place], [address] GAP Normal 5-15 [facility] Comment on above: Result Comment: Canc elled via OM: Order cancelled - Patient discharged Performed By: #### M 100.0605, L7000.0700, L7000.0750 #### [facility] [address] [place], [address] GLU Normal 74-106 [facility] Comment on above: Result Comment: Canc elled via OM: Order cancelled - Patient discharged Performed By: #### M 100.0605, L7000.0700, L7000.0750 #### [facility] [address] [place], [address] Potassium Normal 3.5-5.1 [facility] Comment on above: Result Comment: Canc elled via OM: Order cancelled - Patient discharged Performed By: #### M 100.0605, L7000.0700, L7000.0750 #### [facility] [address] [place], [address] T BILI Normal 0.20-1.00 [facility] Comment on above: Result Comment: Canc elled via OM: Order cancelled - Patient discharged Performed By: #### M 100.0605, L7000.0700, L7000.0750 #### [facility] [address] [place], [address] T PROT Normal 6.4-8.2 [facility] Comment on above: Result Comment: Canc elled via OM: Order cancelled - Patient discharged Performed By: #### M 100.0605, L7000.0700, L7000.0750 #### [facility] [address] [place], [address] Comprehensive Metabolic Profil Normal 136-145 [facility] Comment on above: Result Comment: Canc elled via OM: Order cancelled - Patient discharged Performed By: #### M 100.0605, L7000.0700, L7000.0750 #### [facility] [address] [place], [address] CBC W/Diff, Automatedon - Absolute Neut Normal 2.0-7.7 [facility] Comment on above: Result Comment: Canc elled via OM: Order cancelled - Patient discharged Performed By: #### L 100.0100 #### [facility] [address] [place], [address] HCT Normal 40-54 [facility] Comment on above: Result Comment: Canc elled via OM: Order cancelled - Patient discharged Performed By: #### L 100.0100 #### [facility] [address] [place], [address] HGB Normal 13.0-16.5 [facility] Comment on above: Result Comment: Canc elled via OM: Order cancelled - Patient discharged Performed By: #### L 100.0100 #### [facility] [address] [place], [address] MCH Normal 27.0-32.0 [facility] Comment on above: Result Comment: Canc elled via OM: Order cancelled - Patient discharged Performed By: #### L 100.0100 #### [facility] [address] [place], [address] MCHC Normal 32-36 [facility] Comment on above: Result Comment: Canc elled via OM: Order cancelled - Patient discharged Performed By: #### L 100.0100 #### [facility] [address] [place], [address] MCV Normal 80-94 [facility] Comment on above: Result Comment: Canc elled via OM: Order cancelled - Patient discharged Performed By: #### L 100.0100 #### [facility] [address] [place], [address] NEUT% Normal 47-70 [facility] Comment on above: Result Comment: Canc elled via OM: Order cancelled - Patient discharged Performed By: #### L 100.0100 #### [facility] [address] [place], [address] PLT Normal 150-450 [facility] Comment on above: Result Comment: Canc elled via OM: Order cancelled - Patient discharged Performed By: #### L 100.0100 #### [facility] [address] [place], [address] RBC Normal 4.6-6.2 [facility] Comment on above: Result Comment: Canc elled via OM: Order cancelled - Patient discharged Performed By: #### L 100.0100 #### [facility] [address] [place], [address] RDW CV Normal 11.6-14.6 [facility] Comment on above: Result Comment: Canc elled via OM: Order cancelled - Patient discharged Performed By: #### L 100.0100 #### [facility] [address] [place], [address] RDW SD Normal 35.1-43.9 [facility] Comment on above: Result Comment: Canc elled via OM: Order cancelled - Patient discharged Performed By: #### L 100.0100 #### [facility] [address] [place], [address] WBC Normal 4.4-11.0 [facility] Comment on above: Result Comment: Canc elled via OM: Order cancelled - Patient discharged Performed By: #### L 100.0100 #### [facility] [address] [place], [address] Comprehensive Metabolic Prof ilon 11-20-2022 ALB Normal 3.2-5.0 [facility] Comment on above: Result Comment: Canc elled via OM: Order cancelled - Patient discharged Performed By: #### M 100.0605, L7000.0700, L7000.0750 #### [facility] [address] [place], [address] ALK P Normal 45-117 [facility] Comment on above: Result Comment: Canc elled via OM: Order cancelled - Patient discharged Performed By: #### M 100.0605, L7000.0700, L7000.0750 #### [facility] [address] [place], [address] ALT Normal 16-61 [facility] Comment on above: Result Comment: Canc elled via OM: Order cancelled - Patient discharged Performed By: #### M 100.0605, L7000.0700, L7000.0750 #### [facility] [address] [place], [address] AST Normal 15-37 [facility] Comment on above: Result Comment: Canc elled via OM: Order cancelled - Patient discharged Performed By: #### M 100.0605, L7000.0700, L7000.0750 #### [facility] [address] [place], [address] BUN Normal 7-18 [facility] Comment on above: Result Comment: Canc elled via OM: Order cancelled - Patient discharged Performed By: #### M 100.0605, L7000.0700, L7000.0750 #### [facility] [address] [place], [address] BUN/CRE Normal 10-20 [facility] Comment on above: Result Comment: Canc elled via OM: Order cancelled - Patient discharged Performed By: #### M 100.0605, L7000.0700, L7000.0750 #### [facility] [address] [place], [address] CA,Total Normal 8.5-10.1 [facility] Comment on above: Result Comment: Canc elled via OM: Order cancelled - Patient discharged Performed By: #### M 100.0605, L7000.0700, L7000.0750 #### [facility] [address] [place], [address] CL Normal 98-107 [facility] Comment on above: Result Comment: Canc elled via OM: Order cancelled - Patient discharged Performed By: #### M 100.0605, L7000.0700, L7000.0750 #### [facility] [address] [place], [address] CO2 Normal 21.0-32.0 [facility] Comment on above: Result Comment: Canc elled via OM: Order cancelled - Patient discharged Performed By: #### M 100.0605, L7000.0700, L7000.0750 #### [facility] [address] [place], [address] CREAT,SERUM Normal 0.70-1.30 [facility] Comment on above: Result Comment: Canc elled via OM: Order cancelled - Patient discharged Performed By: #### M 100.0605, L7000.0700, L7000.0750 #### [facility] [address] [place], [address] EST GFR Normal >60 [facility] Comment on above: Result Comment: Canc elled via OM: Order cancelled - Patient discharged Performed By: #### M 100.0605, L7000.0700, L7000.0750 #### [facility] [address] [place], [address] EST GFR - AA Normal >60 [facility] Comment on above: Result Comment: Canc elled via OM: Order cancelled - Patient discharged Performed By: #### M 100.0605, L7000.0700, L7000.0750 #### [facility] [address] [place], [address] GAP Normal 5-15 [facility] Comment on above: Result Comment: Canc elled via OM: Order cancelled - Patient discharged Performed By: #### M 100.0605, L7000.0700, L7000.0750 #### [facility] [address] [place], [address] GLU Normal 74-106 [facility] Comment on above: Result Comment: Canc elled via OM: Order cancelled - Patient discharged Performed By: #### M 100.0605, L7000.0700, L7000.0750 #### [facility] [address] [place], [address] Potassium Normal 3.5-5.1 [facility] Comment on above: Result Comment: Canc elled via OM: Order cancelled - Patient discharged Performed By: #### M 100.0605, L7000.0700, L7000.0750 #### [facility] [address] [place], [address] T BILI Normal 0.20-1.00 [facility] Comment on above: Result Comment: Canc elled via OM: Order cancelled - Patient discharged Performed By: #### M 100.0605, L7000.0700, L7000.0750 #### [facility] [address] [place], [address] T PROT Normal 6.4-8.2 [facility] Comment on above: Result Comment: Canc elled via OM: Order cancelled - Patient discharged Performed By: #### M 100.0605, L7000.0700, L7000.0750 #### [facility] [address] [place], [address] Comprehensive Metabolic Profil Normal 136-145 [facility] Comment on above: Result Comment: Canc elled via OM: Order cancelled - Patient discharged Performed By: #### M 100.0605, L7000.0700, L7000.0750 #### [facility] [address] [place], [address] Absolute lymphocyte countOrd ered By: Dr. Davidson on 11-19-2022 Lymphocytes Auto (Unsp spec) [#/Vol] 1.97 10*3/uL 0.83-4.51 [facility] Basophil percentageOrdered B y: Dr. Davidson on 11-19-2022 Basophils/100 WBC (Bld) 0.6 % 0-1 [facility] Bilirubin [Mass/Vol] 0.20 mg/dL 0.20-1.00 [facility] Comment on above: For patients on eltr ombopag therapy, use of Dimension [place] TBIL is not recommended. Chloride [Moles/Vol] 112 mmol/L 98-107 [facility] Eosinophils/100 WBC (Bld) 5.5 % 0-5 [facility] Glucose [Mass/Vol] 91 mg/dL 74-106 [facility] Neutrophils (Bld) [#/Vol] 7.4 10*3/uL 2.0-7.7 [facility] Neutrophils/100 WBC (Bld) 67.4 % 47-70 [facility] Potassium [Moles/Vol] 4.5 mmol/L 3.5-5.1 [facility] Protein [Mass/Vol] 6.0 g/dL 6.4-8.2 [facility] Sodium [Moles/Vol] 139 mmol/L 136-145 [facility] WBC (Bld) [#/Vol] 11.1 10*3/uL 4.4-11.0 [facility] Blood erythrocytes count (nu mber/volume)Ordered By: Dr. Davidson on 11-19-2022 RBC (Bld) [#/Vol] 3.10 10*6/uL 4.6-6.2 [facility] Blood hemoglobin measurement (mass/volume)Ordered By: Dr. Davidson on 11-19-2022 Hemoglobin (Bld) [Mass/Vol] 10.4 g/dL 13.0-16.5 [facility] Blood lymphocytes/100 leukoc ytesOrdered By: Dr. Davidson on 11-19-2022 Lymphocytes/100 WBC (Bld) 17.8 % 19-41 [facility] Blood monocytes/100 leukocyt esOrdered By: Dr. Davidson on 11-19-2022 Monocytes/100 WBC (Bld) 8.2 % 0-10 [facility] Blood platelet mean volumeOr dered By: Dr. Daivdson on 11-19-2022 Platelet mean volume (Bld) [Entitic vol] 9.3 fL 6.2-12.0 [facility] Determination of erythrocyte mean corpuscular volume (MCV)Ordered By: Dr. Davidson on 11-19-2022 MCV (RBC) [Entitic vol] 103.2 fL 80-94 [facility] Hematocrit Auto (Bld) [Volum e fraction]Ordered By: Dr. Davidson on 11-19-2022 Hematocrit (Bld) [Volume fraction] 32.0 % 40-54 [facility] - Chemistry and C hemistry - challengeOrdered By: Dr. Davidson on 11-19-2022 ALP [Catalytic activity/Vol] 102 U/L 45-117 [facility] ALT [Catalytic activity/Vol] 29 U/L 16-61 [facility] CO2 [Moles/Vol] 26.0 mmol/L 21.0-32.0 [facility] Globulin (S) [Mass/Vol] 3.3 g/dL 2.2-4.2 [facility] Magnesium [Mass/Vol] 1.8 mg/dL 1.6-2.6 [facility] Urea nitrogen/Creatinine [Mass ratio] 16.6 mg/mg 10-20 [facility] - Hematology and Cell countsOrdered By: Dr. Davidson on 11-19-2022 Erythrocyte distribution width (RBC) [Entitic vol] 50.6 fL 35.1-43.9 [facility] Erythrocyte distribution width (RBC) [Ratio] 13.4 % 11.6-14.6 [facility] Immature granulocytes/100 WBC (Bld) 0.500 % 0.0-0.9 [facility] Comment on above: IG% - Immature Granu locytes (promyelocytes, myelocytes and metamyelocytes) > 1% indicates that a LEFT SHIFT is Present. MCH (RBC) [Entitic mass] 33.5 pg 27.0-32.0 [facility] Nucleated RBC/100 WBC (Bld) [Ratio] 0 % 0-5 [facility] MCHC Auto (RBC) [Mass/Vol]Or dered By: Dr. Davidson on 11-19-2022 MCHC (RBC) [Mass/Vol] 32.5 g/dL 32-36 [facility] No Panel InformationOrdered By: Dr. Davidson on 11-19-2022 Estimated Creatinine Clearance Calc 129.44 ml/min [facility] Estimated GFR (MDRD) Amer 162 mL/min >60 [facility] Comment on above: GFR Calc Estimated GFR (MDRD) Non-Af Amer 134 mL/min >60 [facility] Comment on above: Non- GFR Calc Platelets bldOrdered By: Dr. Davidson on 11-19-2022 Platelets (Bld) [#/Vol] 487 10*3/uL 150-450 [facility] Serum or plasma albumin christy urement (mass/volume)Ordered By: Dr. Davidson on 11-19-2022 Albumin [Mass/Vol] 2.7 g/dL 3.2-5.0 [facility] Serum or plasma albumin/glob ulin mass ratioOrdered By: Dr. Davidson on 11-19-2022 Albumin/Globulin [Mass ratio] 0.8 {ratio} 0.9-2.4 [facility] Serum or plasma calcium christy urement (mass/volume)Ordered By: Dr. Davidson on 11-19-2022 Calcium [Mass/Vol] 7.7 mg/dL 8.5-10.1 [facility] Serum or plasma creatinine m easurement (mass/volume)Ordered By: Dr. Davidson on 11-19-2022 Creatinine [Mass/Vol] 0.66 mg/dL 0.70-1.30 [facility] Comment on above: The validity of the calculated GFR & GFRAA in patients over 70 years has not been determined. Clinical correlation is essential. Serum or plasma urea nitroge n measurement (mass/volume)Ordered By: Dr. Davidson on 11-19-2022 Urea nitrogen [Mass/Vol] 11 mg/dL 7-18 [facility] Thin prep Papanicolaou smear with manual screeningOrdered By: Dr. Davidson on 11-19-2022 Thin prep Papanicolaou smear with manual screening 21 U/L 15-37 [facility] Thin prep Papanicolaou smear with manual screening 1 5-15 [facility] Basophil percentageOrdered B y: Dr. Davidson on 11-18-2022 Basophil percentage 3.9 mg/dL 2.5-4.9 [facility] 24 hour urine calcium measur ement (mass/volume)Ordered By: Dr. Davidson on 11-17-2022 Calcium (24H U) [Mass/Vol] 9.6 mg/dL Not Estab. [facility] Absolute lymphocyte countOrd ered By: Gino Briscoe on 11-17-2022 Lymphocytes Auto (Unsp spec) [#/Vol] 2.46 10*3/uL 0.83-4.51 [facility] Albumin Elph [Mass/Vol]Order ed By: Gino Briscoe on 11-17-2022 Albumin [Mass/Vol] 3.2 g/dL 2.9-4.4 [facility] Atypical perinuclear antineu trophil cytoplasmic antibodies measurementOrdered By: Gino Briscoe on 11-17-2022 Neutrophil cytoplasmic Ab.perinuclear.atypical IF (S) [Titer] <1:20 titer Neg:<1:20 [facility] Comment on above: The atypical pANCA p attern has been observed in asignificant percentage of patients with ulcerative colitis,primary sclerosing cholangitis and autoimmune hepatitis.Performed at: - [facility] [id number] Director: Donny Kerr PhD, Phone: [phone] at: [facility] [id number] Director: Edmundo Panda MD, Phone: [phone] Basophil percentageOrdered B y: Gino Briscoe on 11-17-2022 Amylase [Catalytic activity/Vol] 162 U/L 25-115 [facility] Basophil percentage < 0.2 AI 0.0-0.9 [facility] Basophils/100 WBC (Bld) 0.7 % 0-1 [facility] Bilirubin [Mass/Vol] 0.20 mg/dL 0.20-1.00 [facility] Comment on above: For patients on eltr ombopag therapy, use of Dimension [place] TBIL is not recommended. Chloride [Moles/Vol] 105 mmol/L 98-107 [facility] Eosinophils/100 WBC (Bld) 4.9 % 0-5 [facility] Glucose [Mass/Vol] 97 mg/dL 74-106 [facility] LDH [Catalytic activity/Vol] 276 U/L 87-241 [facility] Neutrophils (Bld) [#/Vol] 8.9 10*3/uL 2.0-7.7 [facility] Neutrophils/100 WBC (Bld) 67.3 % 47-70 [facility] Potassium [Moles/Vol] 3.6 mmol/L 3.5-5.1 [facility] Protein [Mass/Vol] 6.5 g/dL 6.4-8.2 [facility] Sodium [Moles/Vol] 139 mmol/L 136-145 [facility] WBC (Bld) [#/Vol] 13.2 10*3/uL 4.4-11.0 [facility] Blood erythrocytes count (nu mber/volume)Ordered By: Gino Briscoe on 11-17-2022 RBC (Bld) [#/Vol] 3.31 10*6/uL 4.6-6.2 [facility] Blood hemoglobin measurement (mass/volume)Ordered By: Gino Briscoe on 11-17-2022 Hemoglobin (Bld) [Mass/Vol] 10.7 g/dL 13.0-16.5 [facility] Blood lymphocytes/100 leukoc ytesOrdered By: Gino Briscoe on 11-17-2022 Lymphocytes/100 WBC (Bld) 18.6 % 19-41 [facility] Blood monocytes/100 leukocyt esOrdered By: Gino Briscoe on 11-17-2022 Monocytes/100 WBC (Bld) 7.4 % 0-10 [facility] Blood platelet mean volumeOr dered By: Gino Briscoe on 11-17-2022 Platelet mean volume (Bld) [Entitic vol] 9.3 fL 6.2-12.0 [facility] Determination of erythrocyte mean corpuscular volume (MCV)Ordered By: Gino Briscoe on 11-17-2022 MCV (RBC) [Entitic vol] 102.7 fL 80-94 [facility] Erythrocyte sedimentation ra teOrdered By: Gino Briscoe on 11-17-2022 ESR (Bld) [Velocity] 25 mm/h 0-20 [facility] Hematocrit Auto (Bld) [Volum e fraction]Ordered By: Gino Briscoe on 11-17-2022 Hematocrit (Bld) [Volume fraction] 34.0 % 40-54 [facility] Interpretation of serum or p lasma protein pattern by immunofixation (narrative resultOrdered By: Gino Briscoe on 11-17-2022 Protein Fractions Immunofixation Vahe [Interp] See comment [facility] Comment on above: Result: Not Observed Laboratory - Chemistry and C hemistry - challengeOrdered By: Dr. Davidson on 11-17-2022 Sodium (U) [Moles/Vol] 181 mmol/L Not Establ. [facility] Laboratory - Chemistry and C hemistry - challengeOrdered By: Sina Wang on 11-17-2022 Magnesium [Mass/Vol] 0.3 mg/dL 1.6-2.6 [facility] Comment on above: Critical Result(s) C alled at: 16:21:38 11/17/2022 by: KALLI PRINCE TO ANDRES ENRIQUEZ. Results read back by same. Laboratory - Chemistry and C hemistry - challengeOrdered By: Gino Briscoe on 11-17-2022 ALP [Catalytic activity/Vol] 91 U/L 45-117 [facility] ALT [Catalytic activity/Vol] 35 U/L 16-61 [facility] CO2 [Moles/Vol] 27.0 mmol/L 21.0-32.0 [facility] Globulin (S) [Mass/Vol] 3.5 g/dL 2.2-4.2 [facility] Lipase [Catalytic activity/Vol] 104 U/L 13-75 [facility] Comment on above: Please note:LIPASE r evised reference range effective 22. New Lipase methodology. Expected to produce lower values than the previous assay method. NEW Reference Range: 13 - 75 U/L Urea nitrogen/Creatinine [Mass ratio] 11.6 mg/mg 10-20 [facility] - Hematology and Cell countsOrdered By: Gino Briscoe on 11-17-2022 Erythrocyte distribution width (RBC) [Entitic vol] 50.6 fL 35.1-43.9 [facility] Erythrocyte distribution width (RBC) [Ratio] 13.3 % 11.6-14.6 [facility] Immature granulocytes/100 WBC (Bld) 1.100 % 0.0-0.9 [facility] Comment on above: IG% - Immature Granu locytes (promyelocytes, myelocytes and metamyelocytes) > 1% indicates that a LEFT SHIFT is Present. MCH (RBC) [Entitic mass] 32.3 pg 27.0-32.0 [facility] Nucleated RBC/100 WBC (Bld) [Ratio] 0 % 0-5 [facility] MCHC Auto (RBC) [Mass/Vol]Or dered By: Gino Briscoe on 11-17-2022 MCHC (RBC) [Mass/Vol] 31.5 g/dL 32-36 [facility] No Panel InformationOrdered By: Dr. Davidson on 11-17-2022 Miscellaneous Test See comment [facility] Comment on above: TEST RESULT LIMITSMa gnesium, Random Urine 8.4 mg/dL Not Estab. _ [facility] ORIGINAL REPORT ON FILE IN LAB CONTAINS ADDITIONAL TEST SITE INFORMATION. Urine Potassium 6.0 mmol/L Not Establ. [facility] Urine Urea Nitrogen 238 mg/dL NO RANGE EST. [facility] Ionized Calcium 4.1 mg/dL 4.5-5.6 [facility] Comment on above: Performed at: - [address] [id number] Director: Donny Kerr PhD, Phone: [phone] Parathyroid Hormone (Intact) 146.3 pg/mL 18.4-80.1 [facility] No Panel InformationOrdered By: Gino Friend on 11-17-2022 Addendum Document Comment . [facility] Comment on above: Protein electrophore sis scan will follow via computer,mail, or edge gluer delivery. Centromere B Antibody <0.2 AI 0.0-0.9 [facility] Estimated GFR (MDRD) Amer 154 mL/min >60 [facility] Comment on above: GFR Calc Estimated GFR (MDRD) Non-Af Amer 128 mL/min >60 [facility] Comment on above: Non- GFR Calc Hepatitis A IgM Antibody Negative Negative [facility] Hepatitis B Core IgM Antibody Negative Negative [facility] Hepatitis C Antibody (EIA) Non-Reactive Non Reactive [facility] Hepatitis C Antibody Comment Comment . [facility] Comment on above: Not infected with HC V unless early or acute infection issuspected (which may be delayed in an immunocompromisedindividual), or other evidence exists to indicate HCVinfection. Immunoglobulin E 117 IU/mL 6-495 [facility] Miscellaneous Test See comment [facility] Comment on above: TEST RESULT LIMITSIB [...] developed and its performance characteristics determined by [employer]. It has not been cleared or approved by the Food and Drug Administration. The FDA has determined that such clearance or approval is not necessary.Atypical pANCA Negative Negative Comments Pattern is not suggestive of Inflammatory Bowel Disease __ TESTING PERFORMED AT [facility]. ORIGINAL REPORT ON FILE IN LAB CONTAINS ADDITIONAL TEST SITE INFORMATION. PROCESS SAFETY MANAGER Antibody <0.2 AI 0.0-0.9 [facility] Platelets bldOrdered By: Lewis Briscoe on 11-17-2022 Platelets (Bld) [#/Vol] 538 10*3/uL 150-450 [facility] Qualitative QuantiFERON-TB g old in tube testOrdered By: Gino Briscoe on 11-17-2022 M. tuberculosis tuberculin stim IFN-g Ql (Bld) 0.01 IU/mL . [facility] Serum DNA double strand anti body assay (units/volume)Ordered By: Gino Briscoe on 11-17-2022 DNA double strand Ab Qn (S) [IU]/mL 0-9 [facility] Comment on above: Negative <5 Equivoca l 5 - 9 Positive >9 Serum Leah-1 antibody assay (u nits/volume)Ordered By: Gino Briscoe on 11-17-2022 Leah-1 extractable nuclear Ab Qn (S) <0.2 AI 0.0-0.9 [facility] Serum Scl-70 extractable nuc lear antibody assay (units/volume)Ordered By: Gino Briscoe on 11-17-2022 SCL-70 extractable nuclear Ab Qn (S) <0.2 AI 0.0-0.9 [facility] Serum Norton extractable nucl ear antibody detectionOrdered By: Gino Briscoe on 11-17-2022 Norton extractable nuclear Ab Ql (S) <0.2 AI 0.0-0.9 [facility] Serum [id number]-5-[id number] measu rement by electrophoresisOrdered By: Gino Briscoe on 11-17-2022 Alpha 1 globulin Elph [Mass/Vol] 0.3 g/dL 0.0-0.4 [facility] Alpha 1 globulin Elph [Mass/Vol] 0.8 g/dL 0.4-1.0 [facility] Serum classic neutrophil cyt oplasmic antibody assay (units/volume)Ordered By: Gino Briscoe on 11-17-2022 Neutrophil cytoplasmic Ab.classic Qn (S) <1:20 titer Neg:<1:20 [facility] Serum globulin measurement ( mass/volume)Ordered By: Gino Briscoe on 11-17-2022 Globulin (S) [Mass/Vol] 2.5 g/dL 2.2-3.9 [facility] Serum or plasma C reactive p rotein measurement (mass/volume)Ordered By: Gino Briscoe on 11-17-2022 CRP [Mass/Vol] 4.92 mg/L 0.0-3.0 [facility] Comment on above: C-Reactive Protein ( CRP) provides useful information for thediagnosis, therapy and monitoring of inflammatory processesand associated diseases. For the evaluation of Relative Riskfor Cardiovascular Disease, a High Sensitivity CRP (HSCRP)should be ordered. Serum or plasma IgA measurem ent (mass/volume)Ordered By: Gino Briscoe on 11-17-2022 IgA [Mass/Vol] 223 mg/dL 90-386 [facility] Serum or plasma IgG measurem ent (mass/volume)Ordered By: Gino Briscoe on 11-17-2022 IgG [Mass/Vol] 535 mg/dL 603-1613 [facility] Serum or plasma IgM measurem ent (mass/volume)Ordered By: Gino Briscoe on 11-17-2022 IgM [Mass/Vol] 52 mg/dL 20-172 [facility] Serum or plasma albumin christy urement (mass/volume)Ordered By: Gino Briscoe on 11-17-2022 Albumin [Mass/Vol] 3.0 g/dL 3.2-5.0 [facility] Serum or plasma albumin/glob ulin mass ratioOrdered By: Gino Briscoe on 11-17-2022 Albumin/Globulin [Mass ratio] 0.9 {ratio} 0.9-2.4 [facility] Serum or plasma beta globuli n measurement by electrophoresis (mass/volume)Ordered By: Gino Briscoe on 11-17-2022 Beta globulin Elph [Mass/Vol] 0.9 g/dL 0.7-1.3 [facility] Serum or plasma calcitriol m easurement (mass/volume)Ordered By: Dr. Davidson on 11-17-2022 1,25-dihydroxyvitamin D3 [Mass/Vol] 41.6 pg/mL 24.8-81.5 [facility] Comment on above: Performed at: - [address] [id number] Director: Edmundo Panda MD, Phone: [phone] Serum or plasma calcium christy urement (mass/volume)Ordered By: Gino Briscoe on 11-17-2022 Calcium [Mass/Vol] 6.1 mg/dL 8.5-10.1 [facility] Comment on above: Critical Result(s) C alled at: 11:55:31 11/17/2022 by: Mamadou Rios to . Results read back by same. Serum or plasma creatinine m easurement (mass/volume)Ordered By: Gino Briscoe on 11-17-2022 Creatinine [Mass/Vol] 0.69 mg/dL 0.70-1.30 [facility] Comment on above: The validity of the calculated GFR & GFRAA in patients over 70 years has not been determined. Clinical correlation is essential. Serum or plasma gamma globul in measurement by electrophoresis (mass/volume)Ordered By: Gino Briscoe on 11-17-2022 Gamma globulin Elph [Mass/Vol] 0.5 g/dL 0.4-1.8 [facility] Serum or plasma hepatitis B virus surface antigen detection by immunoassayOrdered By: Gino Briscoe on 11-17-2022 HBV surface Ag IA Ql Negative Negative [facility] Serum or plasma immunoelectr ophoresis interpretation (nominal result)Ordered By: Gino Briscoe on 11-17-2022 Interpretation IEP [Interp] Comment . [facility] Comment on above: No monoclonality det ected. Serum or plasma urea nitroge n measurement (mass/volume)Ordered By: Gino Briscoe on 11-17-2022 Urea nitrogen [Mass/Vol] 8 mg/dL 7-18 [facility] Serum or plasma uric acid me asurement (mass/volume)Ordered By: Gino Briscoe on 11-17-2022 Urate [Mass/Vol] 3.4 mg/dL 3.5-7.2 [facility] Comment on above: The drugs N-Acetylcy steine and Metamizole may falsely depress this assay. Serum perinuclear neutrophil cytoplasmic antibody titer by immunofluorescenceOrdered By: Gino Briscoe on 11-17-2022 Neutrophil cytoplasmic Ab.perinuclear IF (S) [Titer] <1:20 titer Neg:<1:20 [facility] Comment on above: The presence of posi tive fluorescence exhibiting P-ANCA orC-ANCA patterns alone is not specific for the diagnosis ofWegener's Granulomatosis (WG) or microscopic polyangiitis.Decisions about treatment should not be based solely onANCA IFA results. The [employer] ANCA Group Consensusrecommends follow up testing of positive sera with both MA-3 and MPO-ANCA enzyme immunoassays. As many as 5% serumsamples are positive only by EIA. Ref. AM J Clin [id number];111:507-513. Thin prep Papanicolaou smear with manual screeningOrdered By: Dr. Davidson on 11-17-2022 Thin prep Papanicolaou smear with manual screening 125 mmol/L Not Establ. [facility] Thin prep Papanicolaou smear with manual screeningOrdered By: Gino Briscoe on 11-17-2022 Thin prep Papanicolaou smear with manual screening 25 U/L 15-37 [facility] Thin prep Papanicolaou smear with manual screening 7 5-15 [facility] Thin prep Papanicolaou smear with manual screening 1.3 0.7-1.7 [facility] Thin prep Papanicolaou smear with manual screening Comment . [facility] Comment on above: QuantiFERON-TB Gold Plus [...] smear with manual screening 0 IU/mL . [facility] Thin prep Papanicolaou smear with manual screening 0.02 IU/mL . [facility] Thin prep Papanicolaou smear with manual screening > 10.00 IU/mL . [facility] Thin prep Papanicolaou smear with manual screening Negative Negative [facility] Comment on above: No response to [...] on 11-17-2022 Protein [Mass/Vol] 5.7 g/dL 6.0-8.5 [facility] Urine creatinine measurement (mass/volume)Ordered By: Dr. Davidson on 11-17-2022 Creatinine (U) [Mass/Vol] 43.70 mg/dL NO RANGE EST. [facility] - Microbiology an d Antimicrobial susceptibilityOrdered By: Dr. Mukherjee on 11-14-2022 Bacteria identified Cx Nom (Bld) No growth in 5 days. [facility] Absolute lymphocyte countOrd ered By: Dr. Zacarias on 11-13-2022 Lymphocytes Auto (Unsp spec) [#/Vol] 2.18 10*3/uL 0.83-4.51 [facility] Albumin Elph [Mass/Vol]Order ed By: Gino Briscoe on 11-13-2022 Albumin [Mass/Vol] 2.7 g/dL 2.9-4.4 [facility] Atypical perinuclear antineu trophil cytoplasmic antibodies measurementOrdered By: Gino Briscoe on 11-13-2022 Neutrophil cytoplasmic Ab.perinuclear.atypical IF (S) [Titer] <1:20 titer Neg:<1:20 [facility] Comment on above: The atypical pANCA p attern has been observed in asignificant percentage of patients with ulcerative colitis,primary sclerosing cholangitis and autoimmune hepatitis.Performed at: - [facility] [id number] [place], [place] [id number] Director: Donny Kerr PhD, Phone: [phone] Basophil percentageOrdered B y: Gino Briscoe on 11-13-2022 Basophil percentage < 0.2 AI 0.0-0.9 [facility] Basophil percentageOrdered B y: Dr. Zacarias on 11-13-2022 Basophils/100 WBC (Bld) 0.6 % 0-1 [facility] Eosinophils/100 WBC (Bld) 3.2 % 0-5 [facility] Neutrophils (Bld) [#/Vol] 7.6 10*3/uL 2.0-7.7 [facility] Neutrophils/100 WBC (Bld) 69.1 % 47-70 [facility] WBC (Bld) [#/Vol] 11.0 10*3/uL 4.4-11.0 [facility] Basophil percentageOrdered B y: Sarahi Bone on 11-13-2022 Chloride [Moles/Vol] 112 mmol/L 98-107 [facility] Glucose [Mass/Vol] 92 mg/dL 74-106 [facility] Potassium [Moles/Vol] 3.5 mmol/L 3.5-5.1 [facility] Sodium [Moles/Vol] 143 mmol/L 136-145 [facility] Blood erythrocytes count (nu mber/volume)Ordered By: Dr. Zacarias on 11-13-2022 RBC (Bld) [#/Vol] 3.12 10*6/uL 4.6-6.2 [facility] Blood hemoglobin measurement (mass/volume)Ordered By: Dr. Zacarias on 11-13-2022 Hemoglobin (Bld) [Mass/Vol] 10.2 g/dL 13.0-16.5 [facility] Blood lymphocytes/100 leukoc ytesOrdered By: Dr. Zacarias on 11-13-2022 Lymphocytes/100 WBC (Bld) 19.8 % 19-41 [facility] Blood monocytes/100 leukocyt esOrdered By: Dr. Zacarias on 11-13-2022 Monocytes/100 WBC (Bld) 7.1 % 0-10 [facility] Blood platelet mean volumeOr dered By: Dr. Zacarias on 11-13-2022 Platelet mean volume (Bld) [Entitic vol] 9.1 fL 6.2-12.0 [facility] Clostridium difficile detect ion by polymerase chain reactionOrdered By: Dr. Yun on 11-13-2022 C. difficile DNA FRANCA+probe Ql (Unsp spec) [facility] Determination of erythrocyte mean corpuscular volume (MCV)Ordered By: Dr. Zacarias on 11-13-2022 MCV (RBC) [Entitic vol] 101.9 fL 80-94 [facility] Erythrocyte sedimentation ra teOrdered By: Gino Briscoe on 11-13-2022 ESR (Bld) [Velocity] 33 mm/h 0-20 [facility] Hematocrit Auto (Bld) [Volum e fraction]Ordered By: Dr. Zacarias on 11-13-2022 Hematocrit (Bld) [Volume fraction] 31.8 % 40-54 [facility] Interpretation of serum or p lasma protein pattern by immunofixation (narrative resultOrdered By: Gino Briscoe on 11-13-2022 Protein Fractions Immunofixation Vahe [Interp] See comment [facility] Comment on above: NOT OBSERVED Laboratory - Chemistry and C hemistry - challengeOrdered By: Sarahi Bone on 11-13-2022 CO2 [Moles/Vol] 22.0 mmol/L 21.0-32.0 [facility] Urea nitrogen/Creatinine [Mass ratio] 19.0 mg/mg 10-20 [facility] - Hematology and Cell countsOrdered By: Dr. Zacarias on 11-13-2022 Erythrocyte distribution width (RBC) [Entitic vol] 48.5 fL 35.1-43.9 [facility] Erythrocyte distribution width (RBC) [Ratio] 13.1 % 11.6-14.6 [facility] Immature granulocytes/100 WBC (Bld) 0.200 % 0.0-0.9 [facility] Comment on above: IG% - Immature Granu locytes (promyelocytes, myelocytes and metamyelocytes) > 1% indicates that a LEFT SHIFT is Present. MCH (RBC) [Entitic mass] 32.7 pg 27.0-32.0 [facility] Nucleated RBC/100 WBC (Bld) [Ratio] 0 % 0-5 [facility] MCHC Auto (RBC) [Mass/Vol]Or dered By: Dr. Zacarias on 11-13-2022 MCHC (RBC) [Mass/Vol] 32.1 g/dL 32-36 [facility] Comment on above: Delta: 34.5 on 11/12 No Panel InformationOrdered By: Gino Friend on 11-13-2022 Addendum Document Comment . [facility] Comment on above: Protein electrophore sis scan will follow via computer,mail, or edge gluer delivery. Centromere B Antibody <0.2 AI 0.0-0.9 [facility] Hepatitis A IgM Antibody Negative Negative [facility] Hepatitis B Core IgM Antibody Negative Negative [facility] Hepatitis C Antibody (EIA) Non-Reactive Non Reactive [facility] Hepatitis C Antibody Comment Comment . [facility] Comment on above: Not infected with HC V unless early or acute infection issuspected (which may be delayed in an immunocompromisedindividual), or other evidence exists to indicate HCVinfection. Miscellaneous Test See comment [facility] Comment on above: TEST RESULT LIMITSIB [...] developed and its performance characteristics determined by [employer]. It has not been cleared or approved by the Food and Drug Administration. The FDA has determined that such clearance or approval is not necessary.Atypical pANCA Negative Negative Comments Pattern is not suggestive of Inflammatory Bowel Disease __ TESTING PERFORMED AT [facility]. ORIGINAL REPORT ON FILE IN LAB CONTAINS ADDITIONAL TEST SITE INFORMATION. PROCESS SAFETY MANAGER Antibody <0.2 AI 0.0-0.9 [facility] No Panel InformationOrdered By: Dr. Yun on 11-13-2022 Stool Calprotectin 60 ug/g 0-120 [facility] Comment on above: Concentration Interp retation Follow-Up<16 - 50 ug/g Normal None>50 -120 ug/g Borderline Re-evaluate in 4-6 weeks >120 ug/g Abnormal Repeat as clinically indicatedPerformed at: [facility] [id number] Director: Donny Kerr PhD, Phone: [phone] at: [facility] [id number] Director: Edmundo Panda MD, Phone: [phone] Stool Neutral Fats Normal . [facility] Comment on above: Normal (<60 Droplets /HPF) Stool Pancreatic Elastase 323 >200 [facility] Comment on above: Result Units: ug Parul st./g Severe Pancreatic Insufficiency: <100 Moderate Pancreatic Insufficiency: 100 - 200 Normal: >200Performed at: [facility] [id number] Director: Edmundo Panda MD, Phone: [phone] No Panel InformationOrdered By: Sarahi Bone on 11-13-2022 Estimated Creatinine Clearance Calc 52.41 ml/min [facility] Estimated GFR (MDRD) Amer 57 mL/min >60 [facility] Comment on above: GFR Calc Estimated GFR (MDRD) Non-Af Amer 47 mL/min >60 [facility] Comment on above: Non- GFR Calc Platelets bldOrdered By: Dr. Zacarias on 11-13-2022 Platelets (Bld) [#/Vol] 454 10*3/uL 150-450 [facility] Qualitative QuantiFERON-TB g old in tube testOrdered By: Gino Briscoe on 11-13-2022 M. tuberculosis tuberculin stim IFN-g Ql (Bld) 0.02 IU/mL . [facility] Qualitative fecal fat or lip idsOrdered By: Dr. Yun on 11-13-2022 Fat Ql (Stl) Increased . [facility] Comment on above: Normal (<100 Droplet s/HPF) Serum DNA double strand anti body assay (units/volume)Ordered By: Gino Briscoe on 11-13-2022 DNA double strand Ab Qn (S) [IU]/mL 0-9 [facility] Comment on above: Negative <5 Equivoca l 5 - 9 Positive >9 Serum Leah-1 antibody assay (u nits/volume)Ordered By: Gino Briscoe on 11-13-2022 Leah-1 extractable nuclear Ab Qn (S) <0.2 AI 0.0-0.9 [facility] Serum Scl-70 extractable nuc lear antibody assay (units/volume)Ordered By: Gino Briscoe on 11-13-2022 SCL-70 extractable nuclear Ab Qn (S) <0.2 AI 0.0-0.9 [facility] Serum Norton extractable nucl ear antibody detectionOrdered By: Gino Briscoe on 11-13-2022 Norton extractable nuclear Ab Ql (S) <0.2 AI 0.0-0.9 [facility] Serum kkgdp-1-gektqcox measu rement by electrophoresisOrdered By: Gino Briscoe on 11-13-2022 Alpha 1 globulin Elph [Mass/Vol] 0.4 g/dL 0.0-0.4 [facility] Alpha 1 globulin Elph [Mass/Vol] 0.9 g/dL 0.4-1.0 [facility] Serum classic neutrophil cyt oplasmic antibody assay (units/volume)Ordered By: Gino Briscoe on 11-13-2022 Neutrophil cytoplasmic Ab.classic Qn (S) <1:20 titer Neg:<1:20 [facility] Serum globulin measurement ( mass/volume)Ordered By: Gino Briscoe on 11-13-2022 Globulin (S) [Mass/Vol] 2.8 g/dL 2.2-3.9 [facility] Serum or plasma C reactive p rotein measurement (mass/volume)Ordered By: Gino Briscoe on 11-13-2022 CRP [Mass/Vol] 17.90 mg/L 0.0-3.0 [facility] Comment on above: C-Reactive Protein ( CRP) provides useful information for thediagnosis, therapy and monitoring of inflammatory processesand associated diseases. For the evaluation of Relative Riskfor Cardiovascular Disease, a High Sensitivity CRP (HSCRP)should be ordered. Serum or plasma IgA measurem ent (mass/volume)Ordered By: Gino Briscoe on 11-13-2022 IgA [Mass/Vol] 222 mg/dL 90-386 [facility] Serum or plasma IgG measurem ent (mass/volume)Ordered By: Gino Briscoe on 11-13-2022 IgG [Mass/Vol] 506 mg/dL 603-1613 [facility] Serum or plasma IgM measurem ent (mass/volume)Ordered By: Gino Briscoe on 11-13-2022 IgM [Mass/Vol] 52 mg/dL 20-172 [facility] Serum or plasma beta globuli n measurement by electrophoresis (mass/volume)Ordered By: Gino Briscoe on 11-13-2022 Beta globulin Elph [Mass/Vol] 0.9 g/dL 0.7-1.3 [facility] Serum or plasma calcium christy urement (mass/volume)Ordered By: Sarahi Bone on 11-13-2022 Calcium [Mass/Vol] 7.6 mg/dL 8.5-10.1 [facility] Serum or plasma creatinine m easurement (mass/volume)Ordered By: Sarahi Bone on 11-13-2022 Creatinine [Mass/Vol] 1.63 mg/dL 0.70-1.30 [facility] Comment on above: The validity of the calculated GFR & GFRAA in patients over 70 years has not been determined. Clinical correlation is essential. Serum or plasma gamma globul in measurement by electrophoresis (mass/volume)Ordered By: Gino Briscoe on 11-13-2022 Gamma globulin Elph [Mass/Vol] 0.6 g/dL 0.4-1.8 [facility] Serum or plasma hepatitis B virus surface antigen detection by immunoassayOrdered By: Gino Briscoe on 11-13-2022 HBV surface Ag IA Ql Negative Negative [facility] Serum or plasma immunoelectr ophoresis interpretation (nominal result)Ordered By: Gino Briscoe on 11-13-2022 Interpretation IEP [Interp] Comment . [facility] Comment on above: No monoclonality det ected. Serum or plasma urea nitroge n measurement (mass/volume)Ordered By: Sarahi Bone on 11-13-2022 Urea nitrogen [Mass/Vol] 31 mg/dL 7-18 [facility] Serum perinuclear neutrophil cytoplasmic antibody titer by immunofluorescenceOrdered By: Gino Briscoe on 11-13-2022 Neutrophil cytoplasmic Ab.perinuclear IF (S) [Titer] <1:20 titer Neg:<1:20 [facility] Comment on above: The presence of posi tive fluorescence exhibiting P-ANCA orC-ANCA patterns alone is not specific for the diagnosis ofWegener's Granulomatosis (WG) or microscopic polyangiitis.Decisions about treatment should not be based solely onANCA IFA results. The [employer] AN[employer] Consensusrecommends follow up testing of positive sera with both MA-3 and MPO-ANCA enzyme immunoassays. As many as 5% serumsamples are positive only by EIA. Ref. AM J Clin [id number];111:507-513. Thin prep Papanicolaou smear with manual screeningOrdered By: Gino Briscoe on 11-13-2022 Thin prep Papanicolaou smear with manual screening 1.0 0.7-1.7 [facility] Thin prep Papanicolaou smear with manual screening Comment . [facility] Comment on above: QuantiFERON-TB Gold Plus [...] smear with manual screening 0.02 IU/mL . [facility] Thin prep Papanicolaou smear with manual screening 1.25 IU/mL . [facility] Thin prep Papanicolaou smear with manual screening > 10.00 IU/mL . [facility] Thin prep Papanicolaou smear with manual screening Negative Negative [facility] Comment on above: No response to [...] Papanicolaou smear with manual screening 9 5-15 [facility] Total protein bloodOrdered B y: Gino Briscoe on 11-13-2022 Protein [Mass/Vol] 5.5 g/dL 6.0-8.5 [facility] Basophil percentageOrdered B y: Sarahi Bone on 11-12-2022 Basophil percentage 2.6 mg/dL 2.5-4.9 [facility] - Chemistry and C hemistry - challengeOrdered By: Sarahi Bone on 11-12-2022 Magnesium [Mass/Vol] 1.6 mg/dL 1.6-2.6 [facility] Serum or plasma albumin christy urement (mass/volume)Ordered By: Sarahi Bone on 11-12-2022 Albumin [Mass/Vol] 2.5 g/dL 3.2-5.0 [facility] Culture, urineOrdered By: Dr Cristhian Mukherjee on 11-11-2022 Bacteria identified Cx Nom (U) Culture exhibits no growth. [facility] Basophil percentageOrdered B y: Dr. Espana on 11-10-2022 Bilirubin [Mass/Vol] 0.20 mg/dL 0.20-1.00 [facility] Comment on above: For patients on eltr ombopag therapy, use of Dimension [place] TBIL is not recommended. Protein [Mass/Vol] 6.4 g/dL 6.4-8.2 [facility] Laboratory - Chemistry and C hemistry - challengeOrdered By: Dr. Espana on 11-10-2022 ALP [Catalytic activity/Vol] 74 U/L 45-117 [facility] ALT [Catalytic activity/Vol] 24 U/L 16-61 [facility] Globulin (S) [Mass/Vol] 3.7 g/dL 2.2-4.2 [facility] No Panel InformationOrdered By: Dr. Alcazar on 11-10-2022 Methicillin-Resist S.aureus DNA PCR Negative Negative [facility] Serum or plasma albumin/glob ulin mass ratioOrdered By: Dr. Espana on 11-10-2022 Albumin/Globulin [Mass ratio] 0.7 {ratio} 0.9-2.4 [facility] Thin prep Papanicolaou smear with manual screeningOrdered By: Dr. Espana on 11-10-2022 Thin prep Papanicolaou smear with manual screening 118 U/L 15-37 [facility] Absolute lymphocyte countOrd ered By: Dr. Mukherjee on 11-09-2022 Lymphocytes Auto (Unsp spec) [#/Vol] 1.80 10*3/uL 0.83-4.51 [facility] Basophil percentageOrdered B y: Dr. Mukherjee on 11-09-2022 Lactate [Moles/Vol] 1.1 mmol/L 0.4-2.0 [facility] Basophil percentage 0-5 SEEN /hpf 0-5 [facility] Ammonia (P) [Moles/Vol] 28.0 umol/L 11-32 [facility] Lactate [Moles/Vol] 8.5 mmol/L 0.4-2.0 [facility] Comment on above: Critical Result(s) C alled at: 03:51:22 11/09/2022 by: Ramon Lieberman. EBNSON (RN) (ED) Results read back by same. Basophils/100 WBC (Bld) 0.9 % 0-1 [facility] Bilirubin [Mass/Vol] 0.40 mg/dL 0.20-1.00 [facility] Comment on above: For patients on eltr ombopag therapy, use of Dimension [place] TBIL is not recommended. Chloride [Moles/Vol] 89 mmol/L 98-107 [facility] Eosinophils/100 WBC (Bld) 0.2 % 0-5 [facility] Glucose [Mass/Vol] 257 mg/dL 74-106 [facility] Comment on above: Glucose result great er than or equal to 200 mg/dLsuggests DIABETES MELLITUS per A.D.A. criteria. Neutrophils (Bld) [#/Vol] 18.5 10*3/uL 2.0-7.7 [facility] Neutrophils/100 WBC (Bld) 84.5 % 47-70 [facility] Potassium [Moles/Vol] 3.0 mmol/L 3.5-5.1 [facility] Protein [Mass/Vol] 10.8 g/dL 6.4-8.2 [facility] Sodium [Moles/Vol] 128 mmol/L 136-145 [facility] WBC (Bld) [#/Vol] 21.9 10*3/uL 4.4-11.0 [facility] Bilirubin Test strip Ql (U)O rdered By: Dr. Mukherjee on 11-09-2022 Bilirubin Ql (U) 3 mg/dL Negative [facility] Comment on above: COLOR OF URINE MAY A FFECT DIPSTICK RESULTS. Blood erythrocytes count (nu mber/volume)Ordered By: Dr. Mukherjee on 11-09-2022 RBC (Bld) [#/Vol] 4.55 10*6/uL 4.6-6.2 [facility] Blood hemoglobin measurement (mass/volume)Ordered By: Dr. Mukherjee on 11-09-2022 Hemoglobin (Bld) [Mass/Vol] 15.1 g/dL 13.0-16.5 [facility] Blood lymphocytes/100 leukoc ytesOrdered By: Dr. Mukherjee on 11-09-2022 Lymphocytes/100 WBC (Bld) 8.2 % 19-41 [facility] Blood monocytes/100 leukocyt esOrdered By: Dr. Mukherjee on 11-09-2022 Monocytes/100 WBC (Bld) 2.8 % 0-10 [facility] Blood platelet adequacy dete ction by light microscopyOrdered By: Dr. Mukherjee on 11-09-2022 Platelets LM Ql (Bld) MKD INC ADEQ [facility] Blood platelet mean volumeOr dered By: Dr. Mukherjee on 11-09-2022 Platelet mean volume (Bld) [Entitic vol] 10.0 fL 6.2-12.0 [facility] Determination of erythrocyte mean corpuscular volume (MCV)Ordered By: Dr. Mukherjee on 11-09-2022 MCV (RBC) [Entitic vol] 102.0 fL 80-94 [facility] Glucose Glucometer (BldC) [M ass/Vol]Ordered By: Dr. Mukherjee on 11-09-2022 Glucose [Mass/Vol] 183 mg/dL 74-106 [facility] Comment on above: MANAGEMENT OF PATIEN T CARE PER NURSING PROTOCOL HCO3 (BldA) [Moles/Vol]Order ed By: Dr. Mukherjee on 11-09-2022 HCO3 (Bld) [Moles/Vol] 13 mmol/L 22-26 [facility] Hematocrit Auto (Bld) [Volum e fraction]Ordered By: Dr. Mukherjee on 11-09-2022 Hematocrit (Bld) [Volume fraction] 46.4 % 40-54 [facility] Hyaline casts LM.LPF (Urine sed) [#/Area]Ordered By: Dr. Mukherjee on 11-09-2022 Hyaline casts (Urine sed) [#/Area] 0 /[LPF] 0-5 [facility] INR in Blood by Coagulation assayOrdered By: Dr. Mukherjee on 11-09-2022 INR Coag (Bld) [Relative time] 1.2 {INR} [facility] Influenza virus A and B and SARS-CoV-2 (COVID-19) Ag panel - Upper respiratory specimOrdered By: Dr. Mukherjee on 11-09-2022 SARS-CoV-2 (COVID-19) RNA FRANCA+probe Ql (Resp) [facility] Ketones Test strip Ql (U)Ord ered By: Dr. Mukherjee on 11-09-2022 Ketones Ql (U) Negative Negative [facility] Laboratory - Chemistry and C hemistry - challengeOrdered By: Dr. Alcazar on 11-09-2022 Lipase [Catalytic activity/Vol] 295 U/L 73-393 [facility] Laboratory - Chemistry and C hemistry - challengeOrdered By: Dr. Mukherjee on 11-09-2022 CO2 [Moles/Vol] 14 mmol/L 23-33 [facility] ALP [Catalytic activity/Vol] 152 U/L 45-117 [facility] ALT [Catalytic activity/Vol] 29 U/L 16-61 [facility] CO2 [Moles/Vol] 14.0 mmol/L 21.0-32.0 [facility] Globulin (S) [Mass/Vol] 6.0 g/dL 2.2-4.2 [facility] Urea nitrogen/Creatinine [Mass ratio] 5.0 mg/mg 10-20 [facility] Laboratory - CoagulationOrde red By: Dr. Mukherjee on 11-09-2022 aPTT Coag (Bld) [Time] 29.2 s 24.1-36.2 [facility] PT Coag (PPP) [Time] 14.6 s 11.7-14.9 [facility] Laboratory - Hematology and Cell countsOrdered By: Dr. Mukherjee on 11-09-2022 Erythrocyte distribution width (RBC) [Entitic vol] 49.1 fL 35.1-43.9 [facility] Erythrocyte distribution width (RBC) [Ratio] 13.1 % 11.6-14.6 [facility] Immature granulocytes/100 WBC (Bld) 3.400 % 0.0-0.9 [facility] Comment on above: IG% - Immature Granu locytes (promyelocytes, myelocytes and metamyelocytes) > 1% indicates that a LEFT SHIFT is Present. MCH (RBC) [Entitic mass] 33.2 pg 27.0-32.0 [facility] Nucleated RBC/100 WBC (Bld) [Ratio] 0 % 0-5 [facility] MCHC Auto (RBC) [Mass/Vol]Or dered By: Dr. Mukherjee on 11-09-2022 MCHC (RBC) [Mass/Vol] 32.5 g/dL 32-36 [facility] Macrocytes detectionOrdered By: Dr. Mukherjee on 11-09-2022 Macrocytes Ql (Bld) 1+ [facility] Mucus LM Ql (Urine sed)Order ed By: Dr. Mukherjee on 11-09-2022 Mucus Ql (Urine sed) 0 SEEN /hpf [facility] Nitrite Test strip Ql (U)Ord ered By: Dr. Mukherjee on 11-09-2022 Nitrite Ql (U) Negative Negative [facility] No Panel InformationOrdered By: Dr. Alcazar on 11-09-2022 Troponin I High Sensitivity 9 pg/mL 3.0-78.0 [facility] Comment on above: Please Note: New Shirley t Units and Gender Specific Reference Ranges. For more information see Policy Stat Procedure [place] High Sensitivity Troponin (TNIH) and attachments. No Panel InformationOrdered By: Dr. Mukherjee on 11-09-2022 Ethyl Alcohol Level < 3.0 mg/dL [facility] Comment on above: The serum:whole bloo d ethanol ratio is approximately 1.14and varies slightly with hematocrit. Medical Alcohol reference interval and critical value innon-tolerant individuals; 50 - 100 Impairment 100 Intoxication 100 - 250 Severe Poisoning 250 - 400 Deep/possible fatal coma Bed Mix Venous Bld PCO2 at Pat Temp 36.3 mmHg 41-51 [facility] Bld Gas Crit Called To/Read Back By Yes [facility] Blood Gas Notified Time 02:59:16 [facility] Blood Gas Notified Whom valerie Ling [facility] Blood Gas Specimen Type YAO [facility] Oxygen Delivery Device NRB [facility] Venous Blood Base Excess -16 mmol/L -1.0-3.5 [facility] Estimated Creatinine Clearance Calc 7.84 ml/min [facility] Estimated GFR (MDRD) Amer 6 mL/min >60 [facility] Comment on above: GFR Calc Estimated GFR (MDRD) Non-Af Amer 5 mL/min >60 [facility] Comment on above: Non- GFR Calc PO2 venousOrdered By: Dr. Magdalena brink on 11-09-2022 Oxygen (BldV) [Partial pressure] 40 mm[Hg] 25-40 [facility] Platelets bldOrdered By: Dr. Mukherjee on 11-09-2022 Platelets (Bld) [#/Vol] 802 10*3/uL 150-450 [facility] Protein Test strip Ql (U)Ord ered By: Dr. Mukherjee on 11-09-2022 Protein Ql (U) 30 mg/dl Negative [facility] Review by pathologistOrdered By: Dr. Mukherjee on 11-09-2022 Pathologist review Vahe (Unsp spec) [Interp] Melissa rome [facility] Pathologist review Vahe (Unsp spec) [Interp] Reviewed [facility] Comment on above: Previous reported re sult: Melissa rome Edited by: RGOOD on 11/09/22:1322Neutrophilic leukocytosis with left shift. Macrocytosis.Thrombocytosis.Clinical correlation necessary.Flaco Crenshaw M.D. 11/09/22 AMENDED REPORT 11/09/22 1322 PATH REV previously reported as: Melissa wild Serum or plasma albumin christy urement (mass/volume)Ordered By: Dr. Mukherjee on 11-09-2022 Albumin [Mass/Vol] 4.8 g/dL 3.2-5.0 [facility] Serum or plasma albumin/glob ulin mass ratioOrdered By: Dr. Mukherjee on 11-09-2022 Albumin/Globulin [Mass ratio] 0.8 {ratio} 0.9-2.4 [facility] Serum or plasma calcium christy urement (mass/volume)Ordered By: Dr. Mukherjee on 11-09-2022 Calcium [Mass/Vol] 9.7 mg/dL 8.5-10.1 [facility] Serum or plasma creatinine m easurement (mass/volume)Ordered By: Dr. Mukherjee on 11-09-2022 Creatinine [Mass/Vol] 10.90 mg/dL 0.70-1.30 [facility] Comment on above: Critical Result(s) C alled at: 03:45:05 11/09/2022 by: Ramon Lieberman. USHA CabelloRN) (ED) Results read back by same.The validity of the calculated GFR & GFRAA in patients over 70 years has not been determined. Clinical correlation is essential. Serum or plasma urea nitroge n measurement (mass/volume)Ordered By: Dr. Mukherjee on 11-09-2022 Urea nitrogen [Mass/Vol] 55 mg/dL 7-18 [facility] Squamous epithelial cells de tection in urine sediment by light microscopyOrdered By: Dr. Mukherjee on 11-09-2022 Epithelial cells.squamous LM Ql (Urine sed) 0 SEEN /hpf 0-5 [facility] Thin prep Papanicolaou smear with manual screeningOrdered By: Dr. Mukherjee on 11-09-2022 Thin prep Papanicolaou smear with manual screening 38 U/L 15-37 [facility] Thin prep Papanicolaou smear with manual screening 25 5-15 [facility] Urine blood detectionOrdered By: Dr. Mukehrjee on 11-09-2022 RBC Ql (U) 10 /ul Negative [facility] RBC Ql (U) 0-5 SEEN /hpf 0-5 [facility] Urine clarityOrdered By: Dr. Mukherjee on 11-09-2022 Clarity (U) Clear Clear [facility] Urine color determinationOrd ered By: Dr. Mukherjee on 11-09-2022 Color (U) Yellow Yellow [facility] Urine glucose detectionOrder ed By: Dr. Mukherjee on 11-09-2022 Glucose Ql (U) Normal mg/dl Normal [facility] Urine leukocyte esterase det ection by dipstickOrdered By: Dr. Mukherjee on 11-09-2022 Leukocyte esterase Test strip Ql (U) 25 /ul Negative [facility] Urine pHOrdered By: Dr. Latonya peñaloza on 11-09-2022 pH (U) 5.0 [pH] 5.0 - 8.0 [facility] Urine sediment bacteria coun t by microscopy (number/high power field)Ordered By: Dr. Mukherjee on 11-09-2022 Bacteria LM.HPF (Urine sed) [#/Area] RARE /hpf None Seen [facility] Urine specific gravity measu rementOrdered By: Dr. Mukherjee on 11-09-2022 Specific gravity (U) [Rel density] 1.030 1.002-1.030 [facility] Urobilinogen Auto test strip Ql (U)Ordered By: Dr. Mukherjee on 11-09-2022 Urobilinogen Ql (U) Normal mg/dl Normal [facility] Vital signsOrdered By: Dr. Anuradha kim on 11-09-2022 Oxygen saturation in Blood 61 % 50-70 [facility] Whole blood hemoglobin A1c/t otal hemoglobin ratio (mass fraction)Ordered By: Dr. Espana on 11-09-2022 HbA1c (Bld) [Mass fraction] 5.1 % 3.8-5.6 [facility] Comment on above: Normal < 5.7 % Predi abetic 5.7 - 6.4 % Diabetic >or= 6.5 % Please note range changes. pH measurementOrdered By: Dr Cristhian Mukherjee on 11-09-2022 pH (Unsp spec) 7.17 [pH] 7.32-7.42 [facility] Absolute lymphocyte counton 04-22-2022 Lymphocytes Auto (Unsp spec) [#/Vol] 1.82 10*3/uL 0.83-4.51 [facility] Work Phone: Basophil percentageon 2021 Basophils/100 WBC (Bld) 1.1 % 0-1 [facility] Work Phone: Bilirubin [Mass/Vol] 0.40 mg/dL 0.20-1.00 [facility] Work Phone: Comment on above: For patients on eltr ombopag therapy, use of Dimension [place] TBIL is not recommended. Chloride [Moles/Vol] 105 mmol/L 98-107 [facility] Work Phone: Cholesterol [Mass/Vol] 170 mg/dL <200 [facility] Work Phone: Comment on above: <200 mg/dL Desirable 200-240 mg/dL Borderline >240 mg/dL High Risk Eosinophils/100 WBC (Bld) 4.4 % 0-5 [facility] Work Phone: Glucose [Mass/Vol] 85 mg/dL 74-106 [facility] Work Phone: Neutrophils (Bld) [#/Vol] 3.5 10*3/uL 2.0-7.7 [facility] Work Phone: Neutrophils/100 WBC (Bld) 54.3 % 47-70 [facility] Work Phone: Potassium [Moles/Vol] 3.7 mmol/L 3.5-5.1 [facility] Work Phone: Protein [Mass/Vol] 7.0 g/dL 6.4-8.2 [facility] Work Phone: Sodium [Moles/Vol] 138 mmol/L 136-145 [facility] Work Phone: [phone] Triglyceride [Mass/Vol] 145 mg/dL <199 [facility] Work Phone: Comment on above: The drugs N-Acetylcy steine and Metamizole may falsely depress this assay.Serum Triglycerides Reference Interval Normal <150 mg/dL Borderline high 150 - 199 mg/dL High 200 - 499 mg/dL Very High > or = 500 mg/dL WBC (Bld) [#/Vol] 6.4 10*3/uL 4.4-11.0 [facility] Work Phone: Blood erythrocytes count (nu mber/volume)on 04-22-2022 RBC (Bld) [#/Vol] 3.82 10*6/uL 4.6-6.2 [facility] Work Phone: Blood hemoglobin measurement (mass/volume)on 04-22-2022 Hemoglobin (Bld) [Mass/Vol] 13.2 g/dL 13.0-16.5 [facility] Work Phone: Blood lymphocytes/100 leukoc yteson 04-22-2022 Lymphocytes/100 WBC (Bld) 28.5 % 19-41 [facility] Work Phone: Blood monocytes/100 leukocyt eson 04-22-2022 Monocytes/100 WBC (Bld) 11.4 % 0-10 [facility] Work Phone: Blood platelet mean volumeon 04-22-2022 Platelet mean volume (Bld) [Entitic vol] 9.3 fL 6.2-12.0 [facility] Work Phone: Determination of erythrocyte mean corpuscular volume (MCV)on 04-22-2022 MCV (RBC) [Entitic vol] 103.7 fL 80-94 [facility] Work Phone: Hematocrit Auto (Bld) [Volum e fraction]on 04-22-2022 Hematocrit (Bld) [Volume fraction] 39.6 % 40-54 [facility] Work Phone: Laboratory - Chemistry and C hemistry - challengeon 04-22-2022 ALP [Catalytic activity/Vol] 88 U/L 45-117 [facility] Work Phone: ALT [Catalytic activity/Vol] 33 U/L 16-61 [facility] Work Phone: CO2 [Moles/Vol] 25.0 mmol/L 21.0-32.0 [facility] Work Phone: Cobalamin (Vitamin B12) [Mass/Vol] 440 pg/mL 211-911 [facility] Work Phone: Free T4 [Mass/Vol] 0.76 ng/dL 0.76-1.46 [facility] Work Phone: Globulin (S) [Mass/Vol] 3.3 g/dL 2.2-4.2 [facility] Work Phone: Magnesium [Mass/Vol] 1.8 mg/dL 1.6-2.6 [facility] Work Phone: Urea nitrogen/Creatinine [Mass ratio] 17.2 mg/mg 10-20 [facility] Work Phone: Laboratory - Hematology and Cell countson 04-22-2022 Erythrocyte distribution width (RBC) [Entitic vol] 49.1 fL 35.1-43.9 [facility] Work Phone: Erythrocyte distribution width (RBC) [Ratio] 12.9 % 11.6-14.6 [facility] Work Phone: Immature granulocytes/100 WBC (Bld) 0.300 % 0.0-0.9 [facility] Work Phone: Comment on above: IG% - Immature Granu locytes (promyelocytes, myelocytes and metamyelocytes) > 1% indicates that a LEFT SHIFT is Present. MCH (RBC) [Entitic mass] 34.6 pg 27.0-32.0 [facility] Work Phone: Nucleated RBC/100 WBC (Bld) [Ratio] 0 % 0-5 [facility] Work Phone: MCHC Auto (RBC) [Mass/Vol]on 04-22-2022 MCHC (RBC) [Mass/Vol] 33.3 g/dL 32-36 [facility] Work Phone: No Panel Informationon 04-22 Estimated GFR (MDRD) Amer 128 mL/min >60 [facility] Work Phone: Comment on above: GFR Calc Estimated GFR (MDRD) Non-Af Amer 106 mL/min >60 [facility] Work Phone: Comment on above: Non- GFR Calc Thyroid Stimulating Hormone (TSH) 2.15 uIU/mL 0.358-3.74 [facility] Work Phone: Vitamin B6 Level 6.8 ug/L 3.4-65.2 [facility] Work Phone: Comment on above: Deficiency: <3.4 Mar ginal: 3.4 - 5.1 Adequate: >5.1 Whole Blood Vitamin B1 Level 195.2 nmol/L 66.5-200.0 [facility] Work Phone: Comment on above: Performed at: - [address] [id number] Director: Edmundo Panda MD, Phone: [phone] Platelets bldon 04-22-2022 Platelets (Bld) [#/Vol] 381 10*3/uL 150-450 [facility] Work Phone: Serum or plasma albumin christy urement (mass/volume)on 04-22-2022 Albumin [Mass/Vol] 3.7 g/dL 3.2-5.0 [facility] Work Phone: Serum or plasma albumin/glob ulin mass ratioon 04-22-2022 Albumin/Globulin [Mass ratio] 1.1 {ratio} 0.9-2.4 [facility] Work Phone: Serum or plasma calcium christy urement (mass/volume)on 04-22-2022 Calcium [Mass/Vol] 8.6 mg/dL 8.5-10.1 [facility] Work Phone: Serum or plasma cholesterol in HDL measurement (mass/volume)on 04-22-2022 Cholesterol in HDL [Mass/Vol] 68 mg/dL >40 [facility] Work Phone: Comment on above: The drugs N-Acetylcy steine and Metamizole may falsely depress this assay. Reference Range HDL <40 mg/dL Low HDL Cholesterol HDL >or= 60 mg/dL High HDL Cholesterol Serum or plasma cholesterol in VLDL measurement (mass/volume)on 04-22-2022 Cholesterol in VLDL [Mass/Vol] 29 mg/dL 5-40 [facility] Work Phone: Serum or plasma creatinine m easurement (mass/volume)on 04-22-2022 Creatinine [Mass/Vol] 0.81 mg/dL 0.70-1.30 [facility] Work Phone: Comment on above: The validity of the calculated GFR & GFRAA in patients over 70 years has not been determined. Clinical correlation is essential. Serum or plasma low density lipoprotein (LDL) cholesterol measurement (mass/volume)on 04-22-2022 Cholesterol in LDL [Mass/Vol] 73 mg/dL 0-130 [facility] Work Phone: Serum or plasma urea nitroge n measurement (mass/volume)on 04-22-2022 Urea nitrogen [Mass/Vol] 14 mg/dL 7-18 [facility] Work Phone: Serum or plasma uric acid me asurement (mass/volume)on 04-22-2022 Urate [Mass/Vol] 4.1 mg/dL 3.5-7.2 [facility] Work Phone: Comment on above: The drugs N-Acetylcy steine and Metamizole may falsely depress this assay. Thin prep Papanicolaou smear with manual screeningon 04-22-2022 Thin prep Papanicolaou smear with manual screening 27 U/L 15-37 [facility] Work Phone: Thin prep Papanicolaou smear with manual screening 8 5-15 [facility] Work Phone: XR KNEE 1 OR [...] PM Sign Date: 07/19/2017 2:20:23 PM Normal [facility] ([place]) XR SHOULDER MINIMUM 2 VIEWS LEFTon 07-19-2017 XR SHOULDER MINIMUM 2 VIEWS LEFT ORIGINALXR SHOULDER MINIMUM 2 VIEWS LEFT CLINICAL STATEMENT: z02.71, chronic pain, determine disability COMPARISON: None FINDINGS: No acute fracture or dislocation is identified. There is chronic appearing altered morphology of the humeral head and neck which may represent sequela of a remote trauma; correlation is needed. [id number] degenerative change of the acromioclavicular joint is demonstrated. The included thoracic structures are normal. IMPRESSION: No acute fracture or dislocation. A remote healed fracture deformity of the proximal humerus is questioned. Interpreted By: Anabelle Phoenix MDPreliminary Report By: Anabelle Phoenix MDElectronically Signed By: Anabelle Phoenix MD Dictated Date: 07/19/2017 2:20:36 PM Prelim Date: 07/19/2017 2:20:36 PM Sign Date: 07/19/2017 2:22:39 PM Normal [facility] ([place]) XR SPINE LUMBAR AP/LATon XR SPINE LUMBAR [...] PM Sign Date: 07/19/2017 3:12:47 PM Normal [facility] ([place] Vital Signs Date Time Vital Sign Value Performing Clinician Jessica cmcurdy 11-06-2024 16:18-0400 Diastolic blood pressure 75 mm[Hg] Anjelica Jack 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.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 TECHNICIAN Work Phone: [facility] 11-06-2024 16:18-0400 Systolic blood pressure 132 mm[Hg] Anjelica Reinaldooble 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.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 TECHNICIAN Work Phone: [facility] 11-06-2024 16:10-0400 Body mass index (BMI) [Ratio] 25.07 kg/m2 Anjelica Munoz 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.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 TECHNICIAN Work Phone: [facility] 11-06-2024 16:10-0400 Body weight 77 kg Anjelica Munoz 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.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 TECHNICIAN Work Phone: [facility] 09-09-2023 17:25-0500 Body weight 70.31 kg Anjelica Munoz 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.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 TECHNICIAN Work Phone: [facility] 09-09-2023 17:25-0500 Diastolic blood pressure 60 mm[Hg] Anjeliac Reinaldooble 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.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 TECHNICIAN Work Phone: [facility] 09-09-2023 17:25-0500 Heart rate 100 /min Anjelica Reinaldooble 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.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 TECHNICIAN Work Phone: [facility] 09-09-2023 17:25-0500 Respiratory rate 14 /min Anjelica Munoz 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.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 TECHNICIAN Work Phone: [facility] 09-09-2023 17:25-0500 Systolic blood pressure 100 mm[Hg] Anjelica Reinaldooble 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.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 TECHNICIAN Work Phone: [facility] 06-07-2023 15:16-0400 Body weight 68.95 kg Anjelica Munoz 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.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 TECHNICIAN Work Phone: [facility] 06-07-2023 15:16-0400 Diastolic blood pressure 72 mm[Hg] Anjelica Knoble 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.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 TECHNICIAN Work Phone: [facility] 06-07-2023 15:16-0400 Heart rate 90 /min Anjelicadoron Munoz 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.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 TECHNICIAN Work Phone: [facility] 06-07-2023 15:16-0400 Respiratory rate 16 /min Anjelica Munoz 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.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 TECHNICIAN Work Phone: [facility] 06-07-2023 15:16-0400 Systolic blood pressure 110 mm[Hg] Anjelica Munoz 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.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 TECHNICIAN Work Phone: [facility] 03-03-2023 14:56-0400 Body height 175.3 cm Celina Tesfaye MD Work Phone: [facility] 03-03-2023 14:56-0400 Body weight 78.93 kg Celina Tesfaye MD Work Phone: [facility] 03-03-2023 14:56-0400 Diastolic blood pressure 70 mm[Hg] Celina Tesfaye MD Work Phone: [facility] 03-03-2023 14:56-0400 Heart rate 92 /min Celina Tesfaye MD Work Phone: [facility] 03-03-2023 14:56-0400 Respiratory rate 16 /min Celina Tesfaye MD Work Phone: [facility] 03-03-2023 14:56-0400 Systolic blood pressure 116 mm[Hg] Celina Tesfaye MD Work Phone: [facility] 01-05-2023 12:13-0400 Body weight 82.1 kg Anjelica Munoz 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.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 TECHNICIAN Work Phone: [facility] 01-05-2023 12:13-0400 Diastolic blood pressure 76 mm[Hg] Anjelica Munoz 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.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 TECHNICIAN Work Phone: [facility] 01-05-2023 12:13-0400 Heart rate 92 /min Anjelica Munoz 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.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 TECHNICIAN Work Phone: [facility] 01-05-2023 12:13-0400 Respiratory rate 14 /min Anjelica Munoz 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.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 TECHNICIAN Work Phone: [facility] 01-05-2023 12:13-0400 Systolic blood pressure 120 mm[Hg] Anjelica Munoz APRN.CNP Work Phone: [facility] 11-19-2022 14:00-0400 Body temperature 98.1 [degF] Dr. Zia Osman Work Phone: [facility] 11-19-2022 14:00-0400 Diastolic blood pressure 85 mm[Hg] Dr. Zia Osman Work Phone: [facility] 11-19-2022 14:00-0400 Heart rate 90 /min Dr. Zia Osman Work Phone: [facility] 11-19-2022 14:00-0400 Respiratory rate 16 /min Dr. Zia Osman Work Phone: [facility] 11-19-2022 14:00-0400 SaO2% (BldA) [Mass fraction] 100 % Dr. Zia Osman Work Phone: [facility] 11-19-2022 14:00-0400 Systolic blood pressure 140 mm[Hg] Dr. Zia Osman Work Phone: [facility] 11-19-2022 09:00-0400 Body mass index (BMI) [Ratio] 30.8 kg/m2 Dr. Zia Osman Work Phone: [facility] 11-19-2022 09:00-0400 Body weight 94.[address] Zia Osman Work Phone: [facility] 11-19-2022 05:23-0400 Body temperature 97.9 [degF] Dr. Zia Osman Work Phone: [facility] 11-19-2022 05:23-0400 Diastolic blood pressure 72 mm[Hg] Dr. Zia Osman Work Phone: [facility] 11-19-2022 05:23-0400 Heart rate 88 /min Dr. Zia Osman Work Phone: [facility] 11-19-2022 05:23-0400 Respiratory rate 18 /min Dr. Zia Osman Work Phone: [facility] 11-19-2022 05:23-0400 SaO2% (BldA) [Mass fraction] 98 % Dr. Zia Osman Work Phone: [facility] 11-19-2022 05:23-0400 Systolic blood pressure 127 mm[Hg] Dr. Zia Osman Work Phone: [facility] 11-18-2022 11:40-0400 Body height 175.[address] Zia Osman Work Phone: [facility] 11-17-2022 18:35-0400 Body temperature 98.6 [degF] Dr. Zia Osman Work Phone: [facility] 11-17-2022 18:35-0400 Diastolic blood pressure 79 mm[Hg] Dr. Zia Osman Work Phone: [facility] 11-17-2022 18:35-0400 Heart rate 92 /min Dr. Zia Osman Work Phone: [facility] 11-17-2022 18:35-0400 Respiratory rate 18 /min Dr. Zia Osman Work Phone: [facility] 11-17-2022 18:35-0400 SaO2% (BldA) [Mass fraction] 96 % Dr. Zia Osman Work Phone: [facility] 11-17-2022 18:35-0400 Systolic blood pressure 125 mm[Hg] Dr. Zia Osman Work Phone: [facility] 11-17-2022 14:39-0400 Body height 175.[address] Zia Osman Work Phone: [facility] 11-17-2022 14:39-0400 Body mass index (BMI) [Ratio] 30.5 kg/m2 Dr. Zia Osman Work Phone: [facility] 11-17-2022 14:39-0400 Body weight 93.[address] Zia Osman Work Phone: [facility] 11-13-2022 08:05-0400 Body temperature 97.3 [degF] Dr. Zia Osman Work Phone: [facility] 11-13-2022 08:05-0400 Diastolic blood pressure 79 mm[Hg] Dr. Zia Osman Work Phone: [facility] 11-13-2022 08:05-0400 Heart rate 86 /min Dr. Zia Osman Work Phone: [facility] 11-13-2022 08:05-0400 Respiratory rate 19 /min Dr. Zia Osman Work Phone: [facility] 11-13-2022 08:05-0400 SaO2% (BldA) [Mass fraction] 97 % Dr. Zia Osman Work Phone: [facility] 11-13-2022 08:05-0400 Systolic blood pressure 125 mm[Hg] Dr. Zia Osman Work Phone: [facility] 11-12-2022 06:00-0400 Body mass index (BMI) [Ratio] 27.5 kg/m2 Dr. Zia Osman Work Phone: [facility] 11-12-2022 06:00-0400 Body weight 84.[address] Zia Osman Work Phone: [facility] 11-11-2022 09:26-0400 Body height 175.[address] Zia Osman Work Phone: [facility] 11-09-2022 22:00-0400 Inhaled oxygen flow rate 2 L/min Dr. Zia Osman Work Phone: [facility] 11-09-2022 05:08-0400 Body temperature 96.8 [degF] Dr. Zia Osman Work Phone: [facility] 11-09-2022 05:08-0400 Diastolic blood pressure 53 mm[Hg] Dr. Zia Osman Work Phone: [facility] 11-09-2022 05:08-0400 Heart rate 119 /min Dr. Zia Osman Work Phone: [facility] 11-09-2022 05:08-0400 Respiratory rate 17 /min Dr. Zia Osman Work Phone: [facility] 11-09-2022 05:08-0400 SaO2% (BldA) [Mass fraction] 99 % Dr. Zia Osman Work Phone: [facility] 11-09-2022 05:08-0400 Systolic blood pressure 95 mm[Hg] Dr. Zia Osman Work Phone: [facility] 11-09-2022 03:35-0400 Inhaled oxygen flow rate 15 L/min Dr. Zia Osman Work Phone: [facility] 11-09-2022 02:19-0400 Body height 175.[address] Zia Osman Work Phone: [facility] 11-09-2022 02:19-0400 Body mass index (BMI) [Ratio] 28.3 kg/m2 Dr. Zia Osman Work Phone: [facility] 11-09-2022 02:19-04[address] Body weight [address] Zia Osman Work Phone: [facility] Encounters Encounter Date Encounter Type Care Provider Facility Start: 02-17-2025 End: 02-19-2025 Refill Celina Tesfaye MD Work Phone: [facility] [place] Comment on above: Refill Request Start: 11-21-2024 End: 11-21-2024 Refill Celina Tesfaye MD Work Phone: [facility] [place] Comment on above: Refill Request Start: 11-07-2024 End: 11-21-2024 Follow-up encounter Anjelica Munoz APRN.CNP Work Phone: [facility] Comment on above: Results Start: 11-06-2024 End: 11-06-2024 ambulatory ANJELICA MUNOZ Facility:[facility] Start: 11-06-2024 Encounter for genera l adult medical examination without abnormal findings ANJELICA MUNOZ [facility] Start: 11-06-2024 End: 11-06-2024 Patient encounter procedure Anjelica Munoz APRN.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 TECHNICIAN Work Phone: [facility] Comment on above: Wellness examination (Primary [...] End: 11-06-2024 Patient encounter status Anjelica Munoz APRN.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 TECHNICIAN Work Phone: [facility] Start: 10-02-2024 End: 10-02-2024 Refill Celina Tesfaye MD Work Phone: [address] [place] [address] Comment on above: Refill Request Start: 07-10-2024 End: 07-11-2024 Refill Celina Tesfaye MD Work Phone: [facility] Comment on above: Refill Request Start: 03-21-2024 Refill Celina Tesfaye MD Work Phone: [facility] Comment on above: Refill Request Start: 02-16-2024 ambulatory Zia Osman Facilit y:[facility] Start: 01-24-2024 Refill Celina Tesfaye MD Work Phone: [facility] Comment on above: Refill Request Start: 10-25-2023 Refill Celina Tesfaye MD Work Phone: [facility] Comment on above: Refill Request Start: 09-28-2023 Refill Celina Tesfaye MD Work Phone: [facility] Comment on above: Refill Request Medication Request Start: 09-16-2023 Telephone encounter Anjelica aranda APRN.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 TECHNICIAN Work Phone: [facility] [place] Comment on above: Results Start: 09-13-2023 Telephone encounter Anjelica aranda APRN.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 TECHNICIAN Work Phone: [facility] Comment on above: Patient Update (derm referral/) Start: 09-09-2023 End: 09-09-2023 Patient encounter procedure Anjelica Munoz APRN.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 TECHNICIAN Work Phone: [facility] Comment on above: Essential hypertensi on, benign (Primary Dx); Peripheral edema; Gastroesophageal reflux disease, unspecified whether esophagitis present; Anxiety; Depression, unspecified depression type; Hypomagnesemia; Hyponatremia; Eczema, unspecified type Start: 09-08-2023 Telephone encounter Montana Tesfaye MD Work Phone: [facility] [place] Comment on above: Medication Request Start: 06-08-2023 Telephone encounter Anjelica aranda APRN.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 TECHNICIAN Work Phone: [facility] Comment on above: Results Start: 06-07-2023 End: 06-07-2023 Patient encounter procedure Anjelica Munoz APRN.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 TECHNICIAN Work Phone: [facility] Comment on above: Gastroesophageal ref lux disease, unspecified whether esophagitis present (Primary Dx); Essential hypertension, benign; Depression, unspecified depression type; Anxiety; Hyponatremia; Bilateral lower extremity edema; Itching with irritation Start: 05-31-2023 Refill Anjelica abbott APRN.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 TECHNICIAN Work Phone: [facility] [place] Comment on above: Refill Request Start: 03-23-2023 Telephone encounter Montana Tesfaye MD Work Phone: [facility] [place] Comment on above: Insurance Authorizat ion (Calcium Citrate ) Start: 03-19-2023 Refill Celina Tesfaye MD Work Phone: [facility] [place] Comment on above: Refill Request; Refi ll Request Start: 03-06-2023 Telephone encounter Montana Tesfaye MD Work Phone: [facility] Comment on above: Results Start: 03-03-2023 End: 03-03-2023 Patient encounter procedure Celina Tesfaye MD Work Phone: [facility] Comment on above: Bilateral lower extr emity edema (Primary Dx); Itching; Multiple excoriations; Essential hypertension, benign; Alcohol abuse; Tobacco use disorder; Gastroesophageal reflux disease, unspecified whether esophagitis present; Gastrointestinal hemorrhage, unspecified gastrointestinal hemorrhage type; Gout, unspecified cause, unspecified chronicity, unspecified site; Anxiety; Depression, unspecified depression type; Hypocalcemia Start: 03-03-2023 Telephone encounter Montana Tesfaye MD Work Phone: [facility] Comment on above: Request Outside [facility] [place] [facility] Records Start: 02-01-2023 Telephone encounter Anjelica aranda APRN.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 TECHNICIAN Work Phone: [facility] Comment on above: swelling above ankle s Start: 01-12-2023 ambulatory Zia Osman Facilit y:[facility] Start: 01-07-2023 Telephone encounter Anjelica aranda APRN.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 TECHNICIAN Work Phone: [facility] Comment on above: Results Start: 01-05-2023 End: 01-05-2023 Patient encounter procedure Anjelica Munoz APRN.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 TECHNICIAN Work Phone: [facility] Comment on above: Heartburn (Primary D x); Peripheral edema; Primary hypertension Start: 12-26-2022 ambulatory Lazaro MARTINEZ Facilit y:[facility] Start: 12-07-2022 End: 12-07-2022 ambulatory Zia Osman Facility:[facility] Start: 11-24-2022 End: 11-24-[address] Zia Osman Work Phone: [facility] Work Phone: Start: 11-24-2022 End: 11-24-[address] Zia Osman Work Phone: [facility] Start: 11-23-2022 End: 11-23-[address] Zia Osman Work Phone: [facility]-Laboratory, Specimen Start: 11-23-2022 End: 11-23-[address] Zia Osman Work Phone: [facility] Work Phone: Start: 11-19-2022 Non-patient / Non-visit Dr. Leah Osman Work Phone: [facility] Start: 11-18-2022 Non-patient / Non-visit Dr. Leah Osman Work Phone: [facility] Start: 11-17-2022 Non-patient / Non-visit Dr. Leah Osman Work Phone: [facility] Start: 11-17-2022 End: 11-19-2022 Evaluation and management of inpatient Dr. Zia Osman Work Phone: [facility]-Progressive Care Unit Start: 11-17-2022 End: 11-17-[address] Zia Osman Work Phone: [facility] Work Phone: Start: 11-17-2022 End: 11-17-[address] Zia Osman Work Phone: [facility] [place] [facility] Start: 11-13-2022 Non-patient / Non-visit Dr. Leah Osman Work Phone: [facility] Start: 11-13-2022 Non-patient / Non-visit Dr. Leah Osman Work Phone: [facility] Start: 11-12-2022 Non-patient / Non-visit Dr. Leah Osman Work Phone: [facility] Start: 11-12-2022 Non-patient / Non-visit Dr. Leah Osman Work Phone: [facility] Start: 11-11-2022 Non-patient / Non-visit Dr. Leah Osman Work Phone: [facility] Start: 11-11-2022 Non-patient / Non-visit Dr. Leah Osman Work Phone: [facility] Start: 11-11-2022 Non-patient / Non-visit Dr. Laeh Osman Work Phone: [facility] Start: 11-10-2022 Non-patient / Non-visit Dr. Leah Osman Work Phone: [facility] Start: 11-10-2022 Non-patient / Non-visit Dr. Leah Osman Work Phone: [facility] Start: 11-10-2022 Non-patient / Non-visit Dr. Leah Osman Work Phone: [facility] Start: 11-09-2022 Non-patient / Non-visit Dr. Leah Osman Work Phone: [facility] Start: 11-09-2022 Non-patient / Non-visit Dr. Leah Osman Work Phone: [facility] Start: 11-09-2022 Non-patient / Non-visit Dr. Leah Osman Work Phone: [facility] Start: 11-09-2022 End: 11-13-2022 Evaluation and management of inpatient Dr. Zia Osman Work Phone: [facility]Intensive Care Unit Start: 11-09-2022 End: 11-09-2022 Emergency department patient visit Dr. Zia Osman Work Phone: [facility]Emergency Department Start: 09-14-2022 End: 09-14-[address] Zia Osman Work Phone: [facility] [place] [facility] Start: 08-25-2022 End: 08-25-[address] Zia Osman Work Phone: [facility] Work Phone: Start: 08-25-2022 End: 08-25-[address] Zia Osman Work Phone: [facility] Start: 07-16-2022 End: 07-16-[address] Zia Osman Work Phone: [facility] [place] [facility] Start: 07-07-2022 End: 07-07-2022 ambulatory [facility] Work Phone: Start: 07-07-2022 End: 07-07-2022 Patient encounter procedure [facility] Start: 04-22-2022 End: 04-22-2022 ambulatory [facility] Work Phone: Start: 04-22-2022 End: 04-22-2022 Patient encounter procedure [facility] Start: 07-19-2017 End: 07-20-2017 Ambulatory DAVID SALDIVAR Facility:[facility] Procedures Date Procedure Procedure Detail Performing Clinician Start: 03-03-2023 Lipid 1996 panel - Serum or Plasma Qamar Munoz APRN.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 TECHNICIAN Work Phone: Start: 11-10-[address] Zia [...] specific antigen measurement Prostate Cancer Screening Discussion [facility] Start: 03-03-2028 Lipid 1996 panel - Serum or Plasma Lipid Screening [facility] Start: 03-03-2028 Lipid panel Lipid Screening [facility] Start: 03-03-2028 LIPID SCREEN LIPID SCREEN [facility] Start: 11-07-2027 Diabetes Screening Diabetes Screening [facility] Start: 09-15-2026 Diabetes Screening Diabetes Screening [facility] Start: 06-07-2026 Diabetes Screening Diabetes Screening [facility] Start: 03-03-2026 DIABETES SCREEN DIABETES SCREEN [facility] Start: 03-03-2026 Diabetes Screening Diabetes Screening [facility] Start: 12-22-2025 DIABETES SCREEN DIABETES SCREEN [facility] Start: 11-06-2025 Annual PCP Team Chronic Disease Visit Annual PCP Team Chronic Disease Visit [facility] Start: 11-06-2025 BP Controlled (<130/80) BP Controlled (<130/80) [facility] Start: 11-06-2025 Covid-19 Vaccine ( season) Covid-19 Vaccine ( season) [facility] Comment on above: Postponed from 04/09/2024 (Declined at t his time) Start: 11-06-2025 Hepatitis B Vaccine (1 of 3 - 19+ 3-dose series) Hepatitis B Vaccine (1 of 3 - 19+ 3-dose series) [facility] Comment on above: Postponed from 1988 (Declined at t his time) Start: 11-06-2025 Pneumococcal Vaccine: 50+ (1 of 2 - PCV) Pneumococcal Vaccine: 50+ (1 of 2 - PCV) [facility] Comment on above: Postponed from 1988 (Declined at t his time) Start: 11-06-2025 Shingrix Vaccine (1 of 2) Shingrix Vaccine (1 of 2) [facility] Comment on above: Postponed from 10/09/2019 (Declined at t his time) Start: 11-06-2025 Urine microalbumin profile DTaP,Tdap,Td Vaccine (1 - Tdap) [facility] Comment on above: Postponed from 1988 (Declined at t his time) Start: 04-09-2025 Influenza vaccination Influenza Vaccine (#1) [facility] Start: 02-05-2025 Influenza vaccination Influenza Vaccine (#1) [facility] Comment on above: Postponed from 04/09/2024 (Declined at t his time) Start: 12-05-2024 End: 03-06-2025 Magnesium [Mass/volume] in Serum or Plasma MAGNESIUM Lab Routine Hypomagnesemia Expected: 12/05/2024, Expires: 03/06/2025 [facility] Work Phone: Comment on above: Expected: 12/05/2024, Expires: Start: 11-06-2024 End: 02-05-2025 Cobalamin (Vitamin B12) [Mass/volume] in Serum or Plasma [facility] Comment on above: Expected: 11/06/2024, Expires: Start: 11-06-2024 End: 02-05-2025 COLOGUARD COLOGUARD Lab Routine Screening for colon cancer Expected: 11/06/2024, Expires: 02/05/2025 [facility] Comment on above: Expected: 11/06/2024, Expires: Start: 11-06-2024 End: 02-05-2025 Comprehensive metabolic 2000 panel - Serum or Plasma [facility] Work Phone: Comment on above: Expected: 11/06/2024, Expires: Start: 11-06-2024 End: 02-05-2025 Hemoglobin A1c in Blood [facility] Comment on above: Expected: 11/06/2024, Expires: Start: 11-06-2024 End: 02-05-2025 Hepatitis C virus Ab [Presence] in Serum [facility] Comment on above: Expected: 11/06/2024, Expires: Start: 11-06-2024 End: 02-05-2025 HIV 1+2 Ab [Presence] in Serum or Plasma by Immunoassay [facility] Comment on above: Expected: 11/06/2024, Expires: Start: 11-06-2024 End: 02-05-2025 Magnesium [Mass/volume] in Serum or Plasma [facility] Comment on above: Expected: 11/06/2024, Expires: Start: 11-06-2024 End: 02-05-2025 PSA/PROSTATE SPECIFIC ANTIGEN SCREENING [facility] Comment on above: Expected: 11/06/2024, Expires: Start: 11-06-2024 End: 02-05-2025 Urate [Mass/volume] in Serum or Plasma [facility] Comment on above: Expected: 11/06/2024, Expires: Start: 10-25-2024 End: 10-25-2024 Patient encounter procedure 10/25/2024 5:20 PM EDT Office Visit Family [facility] [address] [place] [address] [employer] APRN.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 TECHNICIAN [address] [place] [address] physical [facility] [place] Comment on above: physical Start: 2024 Prostate specific antigen measurement Prostate Cancer Screening Discussion [facility] Start: 09-09-2024 Annual PCP Team Chronic Disease Visit Annual PCP Team Chronic Disease Visit [facility] Start: 09-09-2024 BP Controlled (<130/80) BP Controlled (<130/80) [facility] Start: 06-07-2024 Annual PCP Team Chronic Disease Visit Annual PCP Team Chronic Disease Visit [facility] Start: 06-07-2024 BP Controlled (<130/80) BP Controlled (<130/80) [facility] Start: 06-07-2024 Covid-19 Vaccine ( season) Covid-19 Vaccine () [facility] Comment on above: Postponed from 04/09/2023 (Declined at t his time) Start: 06-07-2024 Urine microalbumin profile DTaP,Tdap,Td Vaccine (1 - Tdap) [facility] Comment on above: Postponed from 1988 (Declined at t his time) Start: 04-09-2024 Covid-19 Vaccine ( season) Covid-19 Vaccine () [facility] Start: 04-09-2024 Influenza vaccination [facility] Start: 03-23-2024 End: 03-23-2024 Patient encounter procedure 03/23/2024 7:00 PM EDT Office Visit Family [facility] [address] [place] [address] Anjelica Munoz APRN.[facility] [address] [place], [place] [id number] wanting help to file for disability [facility] Comment on above: wanting help to file for disability Start: 03-03-2024 ANNUAL PCP TEAM CHRONIC DISEASE VISIT ANNUAL PCP TEAM CHRONIC DISEASE VISIT [facility] Start: 03-03-2024 BP CONTROLLED (<130/80) BP CONTROLLED (<130/80) [facility] Start: 02-06-2024 Influenza [facility] on [facility]: [facility] from 04/09/2023 (Declined at t his time) Start: 01-06-2024 ANNUAL PCP TEAM CHRONIC DISEASE VISIT ANNUAL PCP TEAM CHRONIC DISEASE VISIT [facility] Start: 01-06-2024 BP CONTROLLED (<130/80) BP CONTROLLED (<130/80) [facility] Start: 09-09-2023 End: 12-09-2023 Comprehensive metabolic 2000 panel - Serum or Plasma COMP METABOLIC PANEL Lab Routine Hyponatremia Expected: 09/09/2023, Expires: 12/09/2023 [facility] Work Phone: Comment on above: Expected: 09/09/2023, Expires: 4 Start: 09-09-2023 End: 12-09-2023 Magnesium [Mass/volume] in Serum or Plasma MAGNESIUM BLD Lab Routine Hypomagnesemia Expected: 09/09/2023, Expires: 12/09/2023 [facility] Work Phone: Comment on above: Expected: 09/09/2023, Expires: 4 Start: 04-09-2023 Covid-19 Vaccine () Covid-19 Vaccine () [facility] Start: 04-09-2023 Influenza vaccination [facility] Start: 11-24-2022 [facility] Start: 11-23-2022 Elastase, pancreatic (el-1), fecal; quantitative [facility] Start: 11-23-2022 Protein measurement [facility] Start: 11-23-2022 [facility] Start: 11-22-2022 [facility] Start: 11-21-2022 [facility] Start: 11-20-2022 [facility] Start: 11-19-2022 Patient discharge [facility] Start: 11-19-2022 Elastase, pancreatic (el-1), fecal; quantitative [facility] Start: 11-19-2022 Protein measurement [facility] Start: 11-19-2022 [facility] Start: 11-18-2022 End: 11-18-2022 Blood chemistry [facility] Start: 11-18-2022 [facility] Start: 11-18-2022 [facility] Start: 11-17-2022 Application of intermittent pneumatic compression device [facility] Start: 11-17-2022 End: 11-17-2022 Vitamin D, 1,25-dihydroxy measurement [facility] Start: 11-17-2022 Procedure [facility] Start: 11-17-2022 Following clinical pathway protocol [facility] Start: 11-17-2022 Assessment of risk of venous thromboembolism [facility] Start: 11-17-2022 Calcium measurement, urine [facility] Start: 11-17-2022 Creatinine [Mass/volume] in Urine collected for unspecified duration [facility] Start: 11-17-2022 Electrolytes measurement, urine [facility] Start: 11-17-2022 Incentive spirometry [facility] Start: 11-17-2022 Insertion of catheter into peripheral vein [facility] Start: 11-17-2022 Measuring intake and output [facility] Start: 11-17-2022 Procedure [facility] Start: 11-17-2022 Providing care according to standard [facility] Start: 11-17-2022 Provision of activity privileges [facility] Start: 11-17-2022 Urea nitrogen measurement, urine [facility] Start: 11-17-2022 End: 11-17-2022 Blood chemistry [facility] Start: 11-17-2022 Verification routine [facility] Start: 11-17-2022 Admission procedure [facility] Start: 11-17-2022 Acute hepatitis panel ACUTE HEPATITIS PANEL [facility] Start: 11-17-2022 Assay of amylase ASSAY OF AMYLASE [facility] Start: 11-17-2022 Assay of blood/uric acid ASSAY OF BLOOD/URIC ACID [facility] Start: 11-17-2022 Assay of gammaglobulin iga igd igg igm each ASSAY IGA/IGD/IGG/IGM EACH [facility] Start: 11-17-2022 Assay of gammaglobulin ige ASSAY OF IGE [facility] Start: 11-17-2022 Assay of lipase ASSAY OF LIPASE [facility] Start: 11-17-2022 Blood count complete auto&auto difrntl wbc COMPLETE CBC W/AUTO DIFF WBC [facility] Start: 11-17-2022 C-reactive protein C-REACTIVE PROTEIN [facility] Start: 11-17-2022 Collection venous blood venipuncture ROUTINE VENIPUNCTURE [facility] Start: 11-17-2022 Comprehensive metabolic panel COMPREHEN METABOLIC PANEL [facility] Start: 11-17-2022 Dna antibody tribe/double stranded DNA ANTIBODY GRAND RONDE TRIBES [facility] Start: 11-17-2022 Extractable nuclear antigen antibody any method NUCLEAR ANTIGEN ANTIBODY [facility] Start: 11-17-2022 Fluorescent nonnfct agt antb titer ea antibody FLUORESCENT ANTIBODY TITER [facility] Start: 11-17-2022 Immunofixj electrophoresis serum IMMUNOFIX E-PHORESIS SERUM [facility] Start: 11-17-2022 Lactate dehydrogenase ldh LACTATE (LD) (LDH) ENZYME [facility] Start: 11-17-2022 Protein electrophoretic fractj&quantj serum PROTEIN E-PHORESIS SERUM [facility] Start: 11-17-2022 Sedimentation rate rbc automated RBC SED RATE AUTOMATED [facility] Start: 11-17-2022 Tb cell mediated antign respnse gamma interferon TB TEST CELL IMMUN MEASURE [facility] Start: 11-17-2022 Acute hepatitis 2000 panel - Serum [facility] Start: 11-17-2022 Immunoglobulin measurement [facility] Start: 11-17-2022 In-vitro immunologic test [facility] Start: 11-17-2022 Procedure [facility] Start: 11-17-2022 Serum immunofixation [facility] Start: 11-17-2022 End: 11-17-2022 [facility] Start: 11-17-2022 Patient referral to dietitian [facility] Start: 11-13-2022 Patient discharge [facility] Start: 11-13-2022 Procedure [facility] Start: 11-13-2022 Serum immunofixation [facility] Start: 11-13-2022 [facility] Start: 11-13-2022 Elastase, pancreatic (el-1), fecal; quantitative [facility] Start: 11-13-2022 Protein measurement [facility] Start: 11-12-2022 Enteric precautions [facility] Start: 11-12-2022 [facility] Start: 11-11-2022 Care planning and problem solving actions [facility] Start: 11-11-2022 [facility] Start: 11-10-2022 Methicillin resistant Staphylococcus aureus screening test [facility] Start: 11-09-2022 Catheterization of vein [facility] Start: 11-09-2022 Referral to gastroenterology service [facility] Start: 11-09-2022 Referral to occupational therapist [facility] Start: 11-09-2022 Referral to service [facility] Start: 11-09-2022 Seizure precautions [facility] Start: 11-09-2022 Consultation [facility] Start: 11-09-2022 Application of intermittent pneumatic compression device [facility] Start: 11-09-2022 Following clinical pathway protocol [facility] Start: 11-09-2022 Assessment of risk of venous thromboembolism [facility] Start: 11-09-2022 Continuous pulse oximetry [facility] Start: 11-09-2022 Elevation of head of bed [facility] Start: 11-09-2022 Insertion of catheter into peripheral vein [facility] Start: 11-09-2022 Measuring intake and output [facility] Start: 11-09-2022 Oxygen therapy [facility] Start: 11-09-2022 Providing care according to standard [facility] Start: 11-09-2022 Referral to derrick barge operator [facility] Start: 11-09-2022 Vital signs measurements [facility] Start: 11-09-2022 Admission procedure [facility] Start: 11-09-2022 End: 11-09-2022 [facility] Start: 11-09-2022 End: 11-09-2022 Blood culture [facility] Start: 11-09-2022 Patient referral to dietitian [facility] Start: 04-22-2022 Thiamine measurement [facility] Work Phone: Start: 04-22-2022 Vitamin B6 measurement [facility] Work Phone: Start: 11-02-2021 LIPID SCREEN LIPID SCREEN [facility] Start: 10-10-2021 COVID-19 VACCINE (4 - Booster for Moderna series) COVID-19 VACCINE (4 - Booster for Moderna series) [facility] Start: 10-10-2021 COVID-19 VACCINE (4 - Moderna series) COVID-19 VACCINE (4 - Moderna series) [facility] Start: 10-09-2019 Influenza vaccination LUNG CANCER SCREENING [facility] Start: 10-09-2019 Screening for malignant neoplasm of lung Lung Cancer Screening [facility] Start: 10-09-2019 SHINGRIX VACCINE (1 of 2) SHINGRIX VACCINE (1 of 2) [facility] Start: 2014 COLOGUARD (FIT-DNA) COLOGUARD (FIT-DNA) [facility] Start: 2014 Colonoscopy COLONOSCOPY [facility] Start: 2014 COLORECTAL CANCER SCREENING COLORECTAL CANCER SCREENING [facility] Start: [address] COLONOGRAPHY [facility] Start: 2014 FECAL OCCULT BLOOD FECAL OCCULT BLOOD [facility] Start: 2014 Screening for malignant neoplasm of colon [facility] Start: 2014 SIGMOIDOSCOPY SIGMOIDOSCOPY [facility] Start: 1988 Hepatitis B Vaccine (1 of 3 - 19+ 3-dose series) Hepatitis B Vaccine (1 of 3 - 19+ 3-dose series) [facility] Start: 1988 Pneumococcal Vaccine: 50+ (1 of 2 - PCV) Pneumococcal Vaccine: 50+ (1 of 2 - PCV) [facility] Start: 1988 Urine microalbumin profile [facility] Start: 10-09-1987 BP Controlled (<130/80) BP Controlled (<130/80) [facility] Start: 10-09-1987 HEPATITIS C SCREENING HEPATITIS C SCREENING [facility] Start: 10-09-1987 Hepatitis C screening Hepatitis C Screening [facility] Start: 10-09-1987 HIV SCREENING HIV SCREENING [facility] Start: 10-09-1987 HIV screening HIV Screening [facility] Start: 10-09-1975 PNEUMOCOCCAL (1 - PCV) PNEUMOCOCCAL (1 - PCV) [facility] Start: 10-09-1975 Pneumococcal vaccination Pneumococcal Vaccine (1 - PCV) [facility] Start: 1969 HEPATITIS B (1 of 3 - 3-dose series) HEPATITIS B (1 of 3 - 3-dose series) [facility] Start: 1969 Hepatitis B Vaccine (1 of 3 - 3-dose series) Hepatitis B Vaccine (1 of 3 - 3-dose series) [facility] Alanine aminotransfe rase [Enzymatic activity/volume] in Serum or Plasma [facility] Alanine aminotransfe rase [Enzymatic activity/volume] in Serum or Plasma [facility] Alanine aminotransfe rase [Enzymatic activity/volume] in Serum or Plasma [facility] Alanine aminotransfe rase [Enzymatic activity/volume] in Serum or Plasma [facility] Alanine aminotransfe rase [Enzymatic activity/volume] in Serum or Plasma [facility] Alanine aminotransfe rase [Enzymatic activity/volume] in Serum or Plasma [facility] Alanine aminotransfe rase [Enzymatic activity/volume] in Serum or Plasma [facility] Albumin [Mass/volume ] in Serum or Plasma [facility] Albumin [Mass/volume ] in Serum or Plasma [facility] Albumin [Mass/volume ] in Serum or Plasma [facility] Albumin [Mass/volume ] in Serum or Plasma [facility] Albumin [Mass/volume ] in Serum or Plasma [facility] Albumin [Mass/volume ] in Serum or Plasma [facility] Albumin [Mass/volume ] in Serum or Plasma [facility] Albumin [Moles/volum e] in Serum or Plasma [facility] Albumin [Moles/volum e] in Serum or Plasma [facility] Albumin/Globulin ratio [facility] Albumin/Globulin ratio [facility] Alkaline phosphatase [Enzymatic activity/volume] in Serum or Plasma [facility] Alkaline phosphatase [Enzymatic activity/volume] in Serum or Plasma [facility] Alkaline phosphatase [Enzymatic activity/volume] in Serum or Plasma [facility] Alkaline phosphatase [Enzymatic activity/volume] in Serum or Plasma [facility] Alkaline phosphatase [Enzymatic activity/volume] in Serum or Plasma [facility] Alkaline phosphatase [Enzymatic activity/volume] in Serum or Plasma [facility] Alkaline phosphatase [Enzymatic activity/volume] in Serum or Plasma [facility] Anion gap measurement [facility] Anion gap measurement [facility] Anion gap measurement [facility] Anion gap measurement [facility] Anion gap measurement [facility] Anion gap measurement [facility] Anion gap measurement [facility] Anion gap measurement [facility] Antibody to lupus La protein measurement [facility] Antibody to lupus [place] protein measurement [facility] Antibody to SS-A measurement [facility] Antibody to SS-A measurement [facility] Aspartate aminotransferase [Enzymatic activity/volume] in Serum or Plasma [facility] Aspartate aminotransferase [Enzymatic activity/volume] in Serum or Plasma [facility] Aspartate aminotransferase [Enzymatic activity/volume] in Serum or Plasma [facility] Aspartate aminotransferase [Enzymatic activity/volume] in Serum or Plasma [facility] Aspartate aminotransferase [Enzymatic activity/volume] in Serum or Plasma [facility] Aspartate aminotransferase [Enzymatic activity/volume] in Serum or Plasma [facility] Aspartate aminotransferase [Enzymatic activity/volume] in Serum or Plasma [facility] Bacteria identified in Blood by Culture Blood Culture [facility] Bacteria identified in Urine by Culture Urine Culture [facility] Bilirubin, total measurement [facility] Bilirubin, total measurement [facility] Bilirubin, total measurement [facility] Bilirubin, total measurement [facility] Bilirubin, total measurement [facility] Bilirubin, total measurement [facility] Bilirubin, total measurement [facility] BUN/Creatinine ratio [facility] BUN/Creatinine ratio [facility] BUN/Creatinine ratio [facility] BUN/Creatinine ratio [facility] BUN/Creatinine ratio [facility] BUN/Creatinine ratio [facility] BUN/Creatinine ratio [facility] BUN/Creatinine ratio [facility] Calcium [Mass/volume ] in Serum or Plasma [facility] Calcium [Mass/volume ] in Serum or Plasma [facility] Calcium [Mass/volume ] in Serum or Plasma [facility] Calcium [Mass/volume ] in Serum or Plasma [facility] Calcium [Mass/volume ] in Serum or Plasma [facility] Calcium [Mass/volume ] in Serum or Plasma [facility] Calcium [Mass/volume ] in Serum or Plasma [facility] Calcium [Mass/volume ] in Serum or Plasma [facility] Calcium.ionized [Mass/volume] in Serum or Plasma [facility] Carbon dioxide, tota l [Moles/volume] in Serum or Plasma [facility] Carbon dioxide, tota l [Moles/volume] in Serum or Plasma [facility] Carbon dioxide, tota l [Moles/volume] in Serum or Plasma [facility] Carbon dioxide, tota l [Moles/volume] in Serum or Plasma [facility] Carbon dioxide, tota l [Moles/volume] in Serum or Plasma [facility] Carbon dioxide, tota l [Moles/volume] in Serum or Plasma [facility] Carbon dioxide, tota l [Moles/volume] in Serum or Plasma [facility] Carbon dioxide, tota l [Moles/volume] in Serum or Plasma [facility] CBC W Auto Different ial panel - Blood COMPLETE BLOOD COUNT AND DIFFERENTIAL Lab Routine Gastroesophageal reflux disease, unspecified whether esophagitis present 11/06/2024 4:39 PM EDT [facility] Centromere protein B Ab [Units/volume] in Serum [facility] Centromere protein B Ab [Units/volume] in Serum [facility] Chloride [Moles/volu me] in Serum or Plasma [facility] Chloride [Moles/volu me] in Serum or Plasma [facility] Chloride [Moles/volu me] in Serum or Plasma [facility] Chloride [Moles/volu me] in Serum or Plasma [facility] Chloride [Moles/volu me] in Serum or Plasma [facility] Chloride [Moles/volu me] in Serum or Plasma [facility] Chloride [Moles/volu me] in Serum or Plasma [facility] Chloride [Moles/volu me] in Serum or Plasma [facility] Chromatin Ab [Units/volume] in Serum or Plasma [facility] Chromatin Ab [Units/volume] in Serum or Plasma [facility] Creatinine [Moles/vo lume] in Serum or Plasma [facility] Creatinine [Moles/vo lume] in Serum or Plasma [facility] Creatinine [Moles/vo lume] in Serum or Plasma [facility] Creatinine [Moles/vo lume] in Serum or Plasma [facility] Creatinine [Moles/vo lume] in Serum or Plasma [facility] Creatinine [Moles/vo lume] in Serum or Plasma [facility] Creatinine [Moles/vo lume] in Serum or Plasma [facility] Creatinine [Moles/vo lume] in Serum or Plasma [facility] DNA double strand Ab [Units/volume] in Serum [facility] DNA double strand Ab [Units/volume] in Serum [facility] Elastase, pancreatic (el-1), fecal; quantitative [facility] Electrophoresis: [id number] [facility] Electrophoresis: [id number] [facility] Electrophoresis: junior ma globulin [facility] Electrophoresis: junior ma globulin [facility] Fat [Mass/mass] in Stool [facility] Fat.neutral [Presenc e] in Stool [facility] Globulin measurement [facility] Globulin measurement [facility] Glucose [Mass/volume ] in Serum or Plasma [facility] Glucose [Mass/volume ] in Serum or Plasma [facility] Glucose [Mass/volume ] in Serum or Plasma [facility] Glucose [Mass/volume ] in Serum or Plasma [facility] Glucose [Mass/volume ] in Serum or Plasma [facility] Glucose [Mass/volume ] in Serum or Plasma [facility] Glucose [Mass/volume ] in Serum or Plasma [facility] Glucose [Mass/volume ] in Serum or Plasma [facility] Hematocrit [Volume Fraction] of Blood [facility] Hematocrit [Volume Fraction] of Blood [facility] Hematocrit [Volume Fraction] of Blood [facility] Hematocrit [Volume Fraction] of Blood [facility] Hematocrit [Volume Fraction] of Blood [facility] Hematocrit [Volume Fraction] of Blood [facility] Hematocrit [Volume Fraction] of Blood [facility] Hemoglobin [Mass/vol ume] in Blood [facility] Hemoglobin [Mass/vol ume] in Blood [facility] Hemoglobin [Mass/vol ume] in Blood [facility] Hemoglobin [Mass/vol ume] in Blood [facility] Hemoglobin [Mass/vol ume] in Blood [facility] Hemoglobin [Mass/vol ume] in Blood [facility] Hemoglobin [Mass/vol ume] in Blood [facility] Hepatitis A virus Ig M Ab [Presence] in Serum [facility] Hepatitis A virus Ig M Ab [Presence] in Serum [facility] Hepatitis B core ant ibody measurement, IgM type [facility] Hepatitis B core ant ibody measurement, IgM type [facility] Hepatitis B surface antigen measurement [facility] Hepatitis B surface antigen measurement [facility] Hepatitis C antibody measurement [facility] Hepatitis C antibody measurement [facility] IgA [Mass/volume] in Serum or Plasma [facility] IgA [Mass/volume] in Serum or Plasma [facility] IgE [Units/volume] i n Serum or Plasma [facility] IgG [Mass/volume] in Serum or Plasma [facility] IgG [Mass/volume] in Serum or Plasma [facility] IgM [Mass/volume] in Serum or Plasma [facility] IgM [Mass/volume] in Serum or Plasma [facility] In-vitro immunologic test [facility] Leah-1 extractable nuc lear Ab [Units/volume] in Serum [facility] Leah-1 extractable nuc lear Ab [Units/volume] in Serum [facility] Lactoferrin [Presenc e] in Stool by Immunoassay [facility] Leukocytes [#/volume ] in Blood [facility] Leukocytes [#/volume ] in Blood [facility] Leukocytes [#/volume ] in Blood [facility] Leukocytes [#/volume ] in Blood [facility] Leukocytes [#/volume ] in Blood [facility] Leukocytes [#/volume ] in Blood [facility] Leukocytes [#/volume ] in Blood [facility] Magnesium [Mass/volu me] in Serum or Plasma [facility] Magnesium [Mass/volu me] in Serum or Plasma [facility] Mean corpuscular hemoglobin concentration determination [facility] Mean corpuscular hemoglobin concentration determination [facility] Mean corpuscular hemoglobin concentration determination [facility] Mean corpuscular hemoglobin concentration determination [facility] Mean corpuscular hemoglobin concentration determination [facility] Mean corpuscular hemoglobin concentration determination [facility] Mean corpuscular hemoglobin concentration determination [facility] Mean corpuscular hemoglobin determination [facility] Mean corpuscular hemoglobin determination [facility] Mean corpuscular hemoglobin determination [facility] Mean corpuscular hemoglobin determination [facility] Mean corpuscular hemoglobin determination [facility] Mean corpuscular hemoglobin determination [facility] Mean corpuscular hemoglobin determination [facility] Measurement of renal function [facility] Measurement of renal function [facility] Measurement of renal function [facility] Measurement of renal function [facility] Measurement of renal function [facility] Measurement of renal function [facility] Measurement of renal function [facility] Measurement of renal function [facility] Mycobacterium tuberculosis tuberculin stimulated gamma interferon [Presence] in Blood [facility] Mycobacterium tuberculosis tuberculin stimulated gamma interferon [Presence] in Blood [facility] Neutrophil count [facility] Neutrophil count [facility] Neutrophil count [facility] Neutrophil count [facility] Neutrophil count [facility] Neutrophil count [facility] Neutrophil count [facility] Neutrophil cytoplasm ic Ab.classic [Units/volume] in Serum [facility] Neutrophil cytoplasm ic Ab.classic [Units/volume] in Serum [facility] Neutrophil percent differential count [facility] Neutrophil percent differential count [facility] Neutrophil percent differential count [facility] Neutrophil percent differential count [facility] Neutrophil percent differential count [facility] Neutrophil percent differential count [facility] Neutrophil percent differential count [facility] P-ANCA measurement [facility] P-ANCA measurement [facility] Patient Education [facility] Work Phone: Patient referral [facility] Work Phone: Platelets [#/volume] in Blood [facility] Platelets [#/volume] in Blood [facility] Platelets [#/volume] in Blood [facility] Platelets [#/volume] in Blood [facility] Platelets [#/volume] in Blood [facility] Platelets [#/volume] in Blood [facility] Platelets [#/volume] in Blood [facility] Potassium [Moles/vol ume] in Serum or Plasma [facility] Potassium [Moles/vol ume] in Serum or Plasma [facility] Potassium [Moles/vol ume] in Serum or Plasma [facility] Potassium [Moles/vol ume] in Serum or Plasma [facility] Potassium [Moles/vol ume] in Serum or Plasma [facility] Potassium [Moles/vol ume] in Serum or Plasma [facility] Potassium [Moles/vol ume] in Serum or Plasma [facility] Potassium [Moles/vol ume] in Serum or Plasma [facility] Protein electrophore sis panel - Serum or Plasma [facility] Protein electrophore sis panel - Serum or Plasma [facility] Protein measurement [facility] End: 06-07-2024 PVR ANK [facility]ESS [facility] Routine Bilateral lower extremity edema 1 Occurrences starting 06/07/2023 until 06/07/2024 [facility] Work Phone: Comment on above: 1 Occurrences starting 06/07/2023 until 06/07/2024 Red blood cell count [facility] Red blood cell count [facility] Red blood cell count [facility] Red blood cell count [facility] Red blood cell count [facility] Red blood cell count [facility] Red blood cell count [facility] Red cell distributio n width determination [facility] Red cell distributio n width determination [facility] Red cell distributio n width determination [facility] Red cell distributio n width determination [facility] Red cell distributio n width determination [facility] Red cell distributio n width determination [facility] Red cell distributio n width determination [facility] SCL-70 extractable nuclear Ab [Units/volume] in Serum by Immunoassay [facility] SCL-70 extractable nuclear Ab [Units/volume] in Serum by Immunoassay [facility] Serum protein electrophoresis [facility] Serum protein electrophoresis [facility] [place] extractable nu clear Ab [Presence] in Serum [facility] [place] extractable nu clear Ab [Presence] in Serum [facility] Sodium [Moles/volume ] in Serum or Plasma [facility] Sodium [Moles/volume ] in Serum or Plasma [facility] Sodium [Moles/volume ] in Serum or Plasma [facility] Sodium [Moles/volume ] in Serum or Plasma [facility] Sodium [Moles/volume ] in Serum or Plasma [facility] Sodium [Moles/volume ] in Serum or Plasma [facility] Sodium [Moles/volume ] in Serum or Plasma [facility] Sodium [Moles/volume ] in Serum or Plasma [facility] Thiamine measurement [facility] Work Phone: Total protein measurement [facility] Total protein measurement [facility] Total protein measurement [facility] Total protein measurement [facility] Total protein measurement [facility] Total protein measurement [facility] Total protein measurement [facility] Urea nitrogen [Mass/volume] in Serum or Plasma [facility] Urea nitrogen [Mass/volume] in Serum or Plasma [facility] Urea nitrogen [Mass/volume] in Serum or Plasma [facility] Urea nitrogen [Mass/volume] in Serum or Plasma [facility] Urea nitrogen [Mass/volume] in Serum or Plasma [facility] Urea nitrogen [Mass/volume] in Serum or Plasma [facility] Urea nitrogen [Mass/volume] in Serum or Plasma [facility] Urea nitrogen [Mass/volume] in Serum or Plasma [facility] End: 06-07-2024 US LEG ARTERIAL PERIPH LEONOR VAS LAB US LEG ARTERIAL PERIPH LEONOR VAS LAB Vascular Lab Routine Bilateral lower extremity edema 1 Occurrences starting 06/07/2023 until 06/07/2024 [facility] Work Phone: Comment on above: 1 Occurrences starting 06/07/2023 until 06/07/2024 End: 04-01-2024 US VENOUS REFLUX BILATERAL US VENOUS REFLUX BILATERAL Radiology Routine Bilateral lower extremity edema 1 Occurrences starting 03/03/2023 until 04/01/2024 [facility] Work Phone: Comment on above: 1 Occurrences starting 03/03/2023 until 04/01/2024 Vitamin B6 measurement [facility] Work Phone: [facility] Immunizations Immunization Date Immunization Notes Care Provider Carter melton 06-07-2017 influenza virus vacc ine, unspecified formulation Anjelica Munoz 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 2017 Unknown [id number] Unknown [id number] [id number] [id number] Unknown [id number] [id number] [id number] Unknown [id number] [id number] [id number] Unknown [id number] 2.16.8 [id number] Unknown [id number] [id number] [id number] Unknown [id number] [id number] [id number] Social History Date Type Detail Facility Start: 01-18-2019 End: 11-18-2022 Tobacco smoking status DCIS Unknown if ever smoked [facility] Start: 06-30-2017 Heavy [facility] Start: 06-30-2017 Marijuana [facility] Start: 06-30-2017 - [facility] Start: 06-30-2017 Non-smoker [facility] Start: 1970 Sex Assigned At Male [facility] Start: 11-02-2016 End: 03-03-2023 Tobacco smoking status NHIS Smokes tobacco daily [facility] History of tobacco use Cigarette Smoker [facility] Start: 11-02-2016 End: 12-22-2022 Cigarettes smoked current (pack per day) - Reported 1 [facility] Start: 11-02-2016 End: 03-03-2023 Tobacco use and exposure Smokeless tobacco non-user [facility] Start: 09-27-2017 Alcohol intake Current drinke r of alcohol (finding) [facility] Start: 1970 Sex Assigned At Not on file [facility] Start: 03-03-2023 Alcohol intake Ex-drinker (finding) [facility] Start: 12-22-2022 End: 03-03-2023 Tobacco use panel [facility] National Score (1-10 0), lower number is lower risk 72 [facility] Start: 03-03-2023 Alcohol Comment once per month [facility] Medical Equipment Procedure Code Equipment Code Equipment [...] Facility 11-19-2022 Functional status Ambulates;Price r;Bathroom Privilege [facility] Work Phone: 11-13-2022 Functional status Ambulates;Up ad sandra [facility] Work Phone: 12-20-2014 Are you deaf, or do you have serious difficulty hearing No 12/20/2014 7:59 AM Shilpi Varela MA No [facility] 12-20-2014 Are you blind, or do you have serious difficulty seeing, even when wearing glasses No 12/20/2014 7:59 AM Shilpi Varela MA No [facility] 12-20-2014 Do you have serious difficulty walking or climbing stairs No 12/20/2014 7:59 AM Shilpi Varela MA No [facility] 12-20-2014 Do you have difficul ty dressing or bathing No 12/20/2014 7:59 AM Shilpi Varela MA No [facility] 12-20-2014 Because of a physica l, mental, or emotional condition, do you have difficulty doing errands alone such as visiting a physician's office or shopping No 12/20/2014 7:59 AM EDT Shilpi Dupree MA No [facility] Mental Status Date Assessment Result Facility 11-19-2022 Cognitive function Voice/Name [facility] Work Phone: 11-18-2022 Cognitive function Appropriate;Cooperativ e [facility] Work Phone: 11-17-2022 Cognitive function Level Of Cons ciousness Awake;Alert;Appropriate [facility] Work Phone: 11-12-2022 Cognitive function Voice/Name [facility] Work Phone: 11-09-2022 Cognitive function Level Of Cons ciousness Drowsy [facility] Work Phone: 12-20-2014 Because of a physica l, mental, or emotional condition, do you have serious difficulty concentrating, remembering, or making decisions No 12/20/2014 7:59 AM EDT Shilpi Dupree MA No [facility] Clinical Notes 08-05-2017 to 02-19-2025 Telephone Encounter - Lizzette Dai MA - 02/19/2025 10:05 AM EDTTelephone Encounter - Lizzette Dai MA - 02/19/2025 10:05 AM DAYANTAnjelica Munoz APRN.[facility] - 11/06/2024 4:08 PM EDT Note Date & Type Note Facility 02-19-2025 Telephone encounter Note Patient's daughter notified and verbalized understanding. Lizzette Dai MA [facility] 02-19-2025 Miscellaneous Notes Patient's daughter notified and verbalized understanding. Lizzette Dai MA Rx sent. Removed mag oxide from his list. Should not be taking both, only the slow mag. Per EPIC, pt has been taking slow mag since 11/21/24 when daughter requested be sent to [facility] Lizzette Dai MA Rx sent except for magnesium. Is he taking slow mag or mag oxide? Changing pharmacy due to [facility] closing. Patient is completely out of meds but wants meds sent to [facility] pharmacy([facility]) which is not open until Wednesday. [...] 2025 11:13 AM documented in this encounter [facility] 02-19-2025 Telephone encounter Note Rx sent. Removed mag oxide from his list. Should not be taking both, only the slow mag. [facility] 02-19-2025 Telephone encounter Note Per EPIC, pt has been taking slow mag since 11/21/24 when daughter requested be sent to [facility] MA [facility] 02-19-2025 Telephone encounter Note Rx sent except for magnesium. Is he taking slow mag or mag oxide? [facility] 02-17-2025 Telephone encounter Note Changing pharmacy due to [facility]. Patient is completely out of meds but wants meds sent to [facility] pharmacy([facility]) which is not open until Wednesday. [...] Glover LPN February 17, 2025 11:13 AM [facility] 11-21-2024 Telephone encounter Note Daughter (Martine) returns call to review provider message again. Martine requests Slo Mag be sent to [facility] as [facility] Rem[facility] as preferred pharmacy and added [facility] as requested. Josephine Pedroza RN [facility] 11-21-2024 Miscellaneous Notes Daughter (Martine) returns call to review provider message again. Martine requests Slo Mag be sent to [facility] as [facility] Rem[facility] as preferred pharmacy and added [facility] as requested. Josephine Pedroza RN documented in this encounter [facility] 11-21-2024 Telephone encounter Note Tried to reach pt, VM not set up. Pt daughter Qi notified and voiced understanding. Shilpi Dupree MA [facility] 11-21-2024 Miscellaneous Notes Tried to reach pt, [...] labs are stable. documented in this encounter [facility] 11-21-2024 Telephone encounter Note Stop OTC magnesium supplement and start slow mag 2 tablets daily. Recheck level in 2-4 weeks. [facility] 11-20-2024 Telephone encounter Note Daughter calls back to check on request below. Asking for Dr. Tesfaye to advise so she doesn't have to go just get additional magnesium OTC without knowing what dose is recommended. Patient is taking magnesium 800 mg twice daily as prescribed. Results: 11/06/2024 Magnesium 1.0 range: 1.7-2.3 mg/dL Josephine Pedroza, CINDY [facility] 11-20-2024 Telephone encounter Note Patient's daughter calls and is asking about results and provider instructions. Daughter notified of these. Daughter states that patient already takes [address] Tesfaye sends this prescription to [facility]. Daughter asking if increased dosage of prescription can be sent to pharmacy? Please review and advise, Funmilayo Sanches RN [facility] 11-13-2024 Telephone encounter Note Telephone call placed to patient. VM box is not setup, unable to leave message. Letter sent as this is 3rd attempt in outreach. Kenyetta Luo LPN [facility] 11-10-2024 Telephone encounter Note Attempted to contact patient; no answer; no voicemail set up. Devorah Guidry MA [facility] 11-09-2024 Telephone encounter Note No answer and no VM set up- will try back later Martine See MA [facility] 11-07-2024 Telephone encounter Note Please let patient know his HIV and hep c screen is negative. His magnesium is low and I would recommend him starting an OTC supplement daily. His other labs are stable. [facility] 11-06-2024 Note HNO ID: [id number] Author: ANJELICA MUNOZ APRN.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 TECHNICIAN Service: ? Author Type: Nurse Practitioner Type: [...] - Continue cu (more content not included)... [facility] 11-06-2024 History of Presen t illness Narrative [...] of the chemicals in tobacco. Anjelica Munoz APRN.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 TECHNICIAN documented in this encounter [facility] 10-02-2024 Telephone encounter Note Prescription Refill Information [...] Aylin Bello October 02, 2024 2:51 PM [facility] 10-02-2024 Miscellaneous Notes Prescription Refill Information The [...] 2024 2:51 PM documented in this encounter [facility] 07-10-2024 Telephone encounter Note Prescription Refill Information [...] Lizzette Bello July 10, 2024 2:54 PM [facility] 07-10-2024 Miscellaneous Notes Prescription Refill Information The [...] 2024 2:54 PM documented in this encounter [facility] 03-21-2024 Telephone encounter Note Prescription Refill Information [...] capsule by mouth once daily. Lizzette Lima [facility] March 21, 2024 10:33 AM [facility] 03-21-2024 Miscellaneous Notes Prescription Refill Information The [...] capsule by mouth once daily. Lizzette Lima [facility] March 21, 2024 10:33 AM documented in this encounter [facility] 01-24-2024 Telephone encounter Note Prescription Refill Information [...] breakfast. 1/2 hr before meal. Lianna Hernadez [facility] January 24, 2024 9:06 AM [facility] 01-24-2024 Miscellaneous Notes Prescription Refill Information The [...] 2024 9:06 AM documented in this encounter [facility] 10-25-2023 Miscellaneous Notes Patient has been identified [...] it has . documented in this encounter [facility] 09-29-2023 Miscellaneous Notes Detailed message left on verified VM. Instructed to call office back if has any questions. Kenyetta Luo LPN Prescription for allopurinol sent. Danna Guillory APRN.ZULEMA Hansel is calling Celina Tesfaye MD today to request a medication that does not appear on current med list: allopurinol (ZYLOPRIM) 300 mg Please send to pharmacy [facility] Patient has been identified by name and birthdate. Person calling: daughter: Martine Call patient at: on cell [phone] (home) [phone] (cell) Was an appointment scheduled: No Closing statement: Results or non-symptom based questions: Thank you for calling [facility], your call will be returned within the next business day. Sunshine Ardon documented in this encounter [facility] 09-28-2023 Miscellaneous Notes Patient has been identified [...] you. Sunshine Ardon. documented in this encounter [facility] 09-20-2023 Miscellaneous Notes Martine Daughter given results below and verbalizes understanding. Haven Azul LPN Left message for patient to return call to office Martine See Cma Please let patient know their labs are normal. Patient may continue magnesium supplementation. documented in this encounter [facility] 09-13-2023 Miscellaneous Notes Pt's daughter Qi calling in to update Anjelica Munoz for the dermatology referral. She states she called [facility] and they do take her dad's insurance. Referral already ordered. Order faxed to [phone]. documented in this encounter [facility] 09-10-2023 Miscellaneous Notes Discussed at OV 09/09/2023. [...] evening, 09/09/23. Please advise daughter Martine at [phone] Thank you. documented in this encounter [facility] 09-09-2023 History of Presen t illness Narrative [...] Anjelica Munoz APRN.CNP documented in this encounter [facility] 06-08-2023 Miscellaneous Notes Call to pt and phone was ringing and call ended. Will try calling again later. Lenka Seay Ma Please let patient know his labs are normal. documented in this encounter [facility] 06-07-2023 History of Presen t illness Narrative [...] - CETIRIZINE 10 MG TABLET Anjelica Munoz APRN.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 TECHNICIAN documented in this encounter [facility] 05-31-2023 Miscellaneous Notes Pt's daughter calling. She [...] Skylar Barry RN. documented in this encounter [facility] 03-23-2023 Miscellaneous Notes Received PA request for Calcium tablets. Medicaid will not cover supplements that can be purchased OTC. Did leave detailed vm on daughter voicemail Aura Esquivel Ma documented in this encounter [facility] 03-22-2023 Miscellaneous Notes Patient's daughter Martine returned [...] Karine Peña, RN documented in this encounter [facility] 03-06-2023 Miscellaneous Notes Phoned patient and reviewed [...] in 3-6 months. documented in this encounter [facility] 03-03-2023 Miscellaneous Notes Request for NEETA faxed to Dr. Osman at [phone] Lizzette Dai MA documented in this encounter [facility] 03-03-2023 History of Presen t illness Narrative Chief Complaint Patient presents with: Establish Care HPI Hansel Love is a 52 year old male who presents here today for Above Complaints. Accompanied today by his daughter Martine. States that he was previously seeing Dr. Osman in [place] with last OV in the last 6 months. Patient complaining of lower extremity edema which first started when he was admitted for GI bleed and sepsis to [facility] back in November. Has had follow ups [...] going to AA, NA, 180 or Verenice [place]so and is refusing information today. Past medical [...] syndrome) primarily diarrhea Lipomatosis Marijuana use Sepsis ([facility]) Serotonin syndrome Previous Surgical History No past [...] which included preparing to see the patient, [id number] patient care, completing clinical documentation, obtaining and/or reviewing separately obtained history, performing a medically appropriate examination, counseling and educating the patient/family/caregiver, and ordering medications, tests, or procedures. Celina Tesfaye MD documented in this encounter [facility] 02-01-2023 Miscellaneous Notes Daughter notified and verbalized [...] Haven Azul LPN documented in this encounter [facility] 01-07-2023 Miscellaneous Notes Pt called and is notified of providers results and instructions. Pt voices understanding. Karine Peña RN Please let patient know his echo shows slight left ventricular dysfunction. He can discuss this further with Dr. Tesfaye at his follow up. documented in this encounter [facility] 01-05-2023 Instructions Anjelica Munoz APRN.CNP - 01/05/2023 12:29 PM EDT Stop pantoprazole, lasix, metolazone Continue lasix Start omeprazole Follow up as scheduled. documented in this encounter [facility] 01-05-2023 History of Presen t illness Narrative [...] - LISINOPRIL 10 MG TABLET Anjelica Munoz APRN.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 TECHNICIAN documented in this encounter [facility] 11-18-2022 Progress note Note Date/Time November 18, 2022 12:15pm [facility] Medical Records Department [address] [place] [address] Progress Note - Hospitalist 11/18/22 1212 MR#: [id number] Acct: [id number] Name: LOVEHANSEL PAUAL Bray Rep #:[id number] : 1970 52 From: Justa Davidson MD PCP: Dr. Zia Osman MD Status:AD M IN Location: [place] [address] Reason for Visit Reason for Visit: Diagnoses [...] % (Auto) 67.1, Lymph % (Auto)18.4 L, [place] % (Auto) 8.5, Eos % (Auto) 4.6, [...] documentation, 30minutes Charges/Coding Visit Charges Inpatient E&M: 61813 Subs Hosp L2 11/18/22 1326 <Electronically signed by Justa Davidson MD> Cosigner Signature (if applicable): CC: ~ Signed [facility] Work Phone: 1(183) 834-236404-11-2023 History and physical note Author Dr. Davidson [facility] November 17, 2022 5:45pm Note Date/Time November 17, 2022 4:4 2pm [facility] Medical Records Department [address] [place] [address] H&P Exam - Hospitalist 11/17/22 1641 MR#: [id number] Acct: [id number] Name: HANSEL LOVE Jr. Rep #:[id number] : 1970 52 From: Justa Davidson MD PCP: Dr. Zia Osman MD Status:AD M IN Location: [id number] HPI - General General Date of Admission: 11/17/22 Date of Service: 11/17/22 Chief Complaint: Abnormal labs HPI Narrative HANSEL LOVE, is a 52 M with a history of gout, alcohol use disorder in early remission, GI bleed status post cauterization, BPH who presented to [facility] 11/17/22 due to lab abnormalities. He [...] vomiting, overall eating well. Denied urinary complaints. [facility] Medical History Acute encephalopathy Alcohol abuse, daily [...] [facility] Resp: Denies cough, denies shortness [...] documentation, 60minutes Charges/Coding Visit Charges Inpatient E&M: 94098 Init Hosp L2 11/17/22 1745 <Electronically signed by Justa Davidson MD> Cosigner Signature (if applicable): CC: Dr. Zia Osman MD; Dr. Justa Davidson MD~ Signed [facility] Work Phone: 1(172) 141-974404-11-[address] Hector [facility] November 17, 2022 4:34pm Note Date/Time November 17, 2022 3:3 1pm [facility] Medical Records Department [address] [place] [address] Emergency Department Summary 11/17/22 MR#: [id number] Acct: [id number] Name: HANSEL LOVE PAULA Bray Rep #:[id number] : 1970 52 From: Sina RANDHAWA PCP: [...] for evaluation. He denies any other injury. [facility] <SYDNEE Mejia - Last Filed: 11/17/22 16:32> [facility] Medical History Acute encephalopathy Alcohol abuse, daily [...] <SYDNEE Mejia - Last Filed: 11/17/22 16:32> [facility] Lab Data Labs: Laboratory Results - last 24 hr 11/17/22 15:22 Magnesium 0.3 L* EKG Initial EKG: Comments: EKG showed a normal sinus rhythm, MA interval 140 ms, QRS duration 94 ms [...] Hector MD - Last Filed: 11/17/22 16:34> [facility] Narrative Medical decision making narrative: I have [...] follows: Interpretation: Sinus Rhythm (Rate is 92. MA interval 140 ms. Cures duration 84 ms. QT duration 374 ms. [place] is normal. There is artifact noted. There is no ischemic abnormality noted) <Dr. Will Hector MD - Last Filed: 11/17/22 16:34> Critical Care Time Critical Care Time: Yes Critical care time (excluding procedures): 30-74 minutes (31), Including time spent: (History, physical, documentation, interpretation laboratory results initiation of therapy), Discussing w/Patient &/or Family/Training And Development Coordinator (Patient, daughter and significant other), Discussing w/Consultants and Arranging Admission or Transfer Discharge Plan Dx/Rx/DC Orders Clinical Impression: Hypocalcemia syndrome, Hypomagnesemia, Anemia, Sinus tachycardia seen on food service assistant Disposition Disposition: Acute Care Hospital [facility] What to do if you have Problems For any increased pain, shortness of breath, bleeding, nausea or vomiting, chestpain, or any unexpected problems, contact your Primary Care Provider. Call [facility] ([phone]) or report to the closest Emergency Room. Call 911 if necessary. 11/17/22 1633 <Electronically signed by Sina RANDHAWA> Cosigner Signature (if applicable): 11/17/22 1634 <Electronically signed by Jacye ANSARI> CC: Dr. Zia Osman MD ~ Signed [facility] Work Phone: 1(847) 156-367604-07-[address] Brown [facility] November 13, 2022 2:08pm Note Date/Time November 13, 2022 2:08 pm [facility] Medical Records Department [address] [place] [address] Progress Note - Nephrology 11/13/22 1407 MR#: [id number] Acct: [id number] Name: VERAHANSEL PAULA Bray Rep #:[id number] : 1970 52 From: Rickey carter MD [...] H, RDW Coeff of [place]r 13.1, Plt [id number] H, MPV 9.1, Immature Gran % (Auto) 0.200, Neut % (Auto) 69.1, Lymph % (Auto)19.8, [place] % (Auto) 7.1, Eos % (Auto) 3.2, [...] Cosigner Signature (if applicable): CC: ~ Signed [facility] Work Phone: 1(607) 789-346104-07-2023 Progress note Author Gino Friend [facility] November 13, 2022 4:21pm Note Date/Time November 13, 2022 4:21 pm [facility] Medical Records Department [address] [place] [address] Progress Note 11/13/22 1000 MR#: [id number] Acct: [id number] Name: LOVEHANSEL PAULA Bray Rep #:[id number] : 1970 52 From: Gino Briscoe DO [...] H, RDW Coeff of [place] 13.1, Plt [id number] H, MPV 9.1, Immature Gran % (Auto) 0.200, Neut % (Auto) 69.1, Lymph % (Auto)19.8, [place] % (Auto) 7.1, Eos % (Auto) 3.2, [...] the liver Charges/Coding Visit Charges Inpatient E&M: 87181 Subs Hosp L3 11/13/22 1621 <Electronically signed by Gino Briscoe DO> Gino Briscoe DO Cosigner Signature (if applicable): CC: ~ Signed [facility] Work Phone: 1(556) 974-793204-07-2023 Progress note Author Gino Briscoe [facility] November 13, 2022 7:47am Note Date/Time November 13, 2022 7:[address] [facility] Medical Records Department [address] [place] [address] Progress Note 11/13/2240 MR#: [id number] Acct: [id number] Name: HANSEL LOVE JrCristhian Rep #:[id number] : 1970 52 From: Gino Briscoe DO [...] H, RDW Coeff of [place]r 13.1, Plt [id number] H, MPV 9.1, Immature Gran % (Auto) 0.200, Neut % (Auto) 69.1, Lymph % (Auto)19.8, [place] % (Auto) 7.1, Eos % (Auto) 3.2, [...] the liver Charges/Coding Visit Charges Inpatient E&M: 38192 Subs Hosp L3 11/13/22 0747 <Electronically signed by Gino Friend DO> Gino Friend DO Cosigner Signature (if applicable): CC: ~ Signed [facility] Work Phone: 1(171) 793-125204-06-[address] Zacarias [facility] November 12, 2022 4:36pm Note Date/Time November 12, 2022 12:1 6pm [facility] Medical Records Department [address] [place] [address] Progress Note 11/12/22 1214 MR#: [id number] Acct: [id number] Name: HANSEL LOVE Rep #:[id number] : 1970 52 From: Cally Zacarias MD [...] H, RDW Coeff of Oleksandr 12.8, Plt [id number], MPV 9.3, Immature Gran % (Auto) 0.300, Neut % (Auto) 72.4 H, Lymph % (Auto)14.6 L, [place] % (Auto) 8.5, Eos % (Auto) 3.4, [...] PCU today Charges/Coding Visit Charges Inpatient E&M: 46320 Subs Hosp L2 11/12/22 1636 <Electronically signed by Cally Zacarias MD> Cally Zacarias MD Cosigner Signature (if applicable): CC: ~ Signed [facility] Work Phone: 1(314) 878-272104-06-[address] Brown [facility] November 12, 2022 3:33pm Note Date/Time November 12, 2022 10:3 2am [facility] Medical Records Department [address] [place] [address] Progress Note - Nephrology 11/12/22 1025 MR#: [id number] Acct: [id number] Name: HANSEL LOVE JrCristhian Rep #:[id number] : 1970 52 From: Sarahi yeager SENIOR SOFTWARE PROJECT MANAGER-C PCP: Dr. Zia Osman MD Status:AD M [...] H, RDW Coeff of [place]ks[place]r 12.8, Plt [id number], MPV 9.3, Immature Gran % (Auto) 0.300, Neut % (Auto) 72.4 H, Lymph % (Auto)14.6 L, [place] % (Auto) 8.5, Eos % (Auto) 3.4, [...] by Rickey Brown MD> cc: ~* Signed [facility] Work Phone: 1(248) 231-876104-06-[address] Brown [facility] November 12, 2022 12:29pm Note Date/Time November 11, 2022 10:1 2am [facility] Medical Records Department [address] [place] [address] Progress Note - Nephrology 11/11/22 1000 MR#: [id number] Acct: [id number] Name: HANSEL LOVE Jr. Rep #:[id number] : 1970 52 From: Sarahi yeager NP-C [...] 72.8 H, Lymph % (Auto) 15.6 L, [place] % (Auto) 7.6, Eos % (Auto) 2.7, [...] dialysis today. Urine output is starting to waste picker, already 1L output so far today. Patient [...] by Rickey Brown MD> CC: ~ Signed [facility] Work Phone: 1(626) 508-265104-06-[address] Alcazar [facility] November 12, 2022 8:47am Note Date/Time November 12, 2022 8:03 am [facility] Medical Records Department [address] [place] [address] Progress Note - Cooler Worker 11/12/22 08 MR#: [id number] Acct: [id number] Name: HANSEL LOVE Jr. Rep #:[id number] : 1970 52 From: Timmy Alcazar DO [...] alcohol withdrawal. This note was generated with [employer] dictation software. It may contain incorrectwords, spelling, [...] H, RDW Coeff of [place]r 12.8, Plt [id number], MPV 9.3, Immature Gran % (Auto) 0.300, Neut % (Auto) 72.4 H, Lymph % (Auto)14.6 L, [place] % (Auto) 8.5, Eos % (Auto) 3.4, [...] Behavior: restless Charges/Coding Visit Charges Inpatient E&M: 69656 Subs Hosp L2 11/12/22 0847 <Electronically signed by Timmy Alcazar DO> Cosigner Signature (if applicable): CC: ~ Signed [facility] Work Phone: 1(791) 801-980804-05-2023 Progress note Author Ginoiram Briscoe [facility] November 11, 2022 4:46pm Note Date/Time November 11, 2022 4:[address] [facility] Medical Records Department [address] [place] [address] Progress Note 11/11/22 1642 MR#: [id number] Acct: [id number] Name: HANSEL LOVE Jr. Rep #:[id number] : 1970 52 From: Gino Briscoe DO [...] 72.8 H, Lymph % (Auto) 15.6 L, [place] % (Auto) 7.6, Eos % (Auto) 2.7, [...] monitor H&H. Charges/Coding Visit Charges Inpatient E&M: 41498 Subs Hosp L3 11/11/22 1646 <Electronically signed by Gino Briscoe DO> Gino Briscoe DO Cosigner Signature (if applicable): CC: ~ Signed [facility] Work Phone: 1([phone]) 910-791004-05-[address] Zacarias [facility] November 11, 2022 3:05pm Note Date/Time November 11, 2022 3:05 pm [facility] Medical Records Department [address] [place] [address] Progress Note 11/11/22 1456 MR#: [id number] Acct: [id number] Name: HANSEL LOVE Rep #:[id number] : 1970 52 From: Cally Zacarias MD [...] 72.8 H, Lymph % (Auto) 15.6 L, [place] % (Auto) 7.6, Eos % (Auto) 2.7, [...] 45 mins Charges/Coding Visit Charges Inpatient E&M: 92443 [facility] Hosp L2 11/11/22 3187 <Electronically signed by Cally Zacarias MD> Cally Zacarias MD Cosigner Signature (if applicable): CC: ~ Signed [facility] Work Phone: 1(585) 907-931604-05-[address] Alcazar [facility] November 11, 2022 9:20am Note Date/Time November 11, 2022 8:41 am [facility] Medical Records Department [address] [place] [address] Progress Note - Cooler Worker 11/11/22 0838 MR#: [id number] Acct: [id number] Name: HANSEL LOVE Rep #:[id number] : 1970 52 From: Timmy Alcazar DO [...] alcohol withdrawal. This note was generated with [employer] dictation software. It may contain incorrectwords, spelling, [...] 72.8 H, Lymph % (Auto) 15.6 L, [place] % (Auto) 7.6, Eos % (Auto) 2.7, [...] Behavior: restless Charges/Coding Visit Charges Inpatient E&M: 84677 Subs Hosp L2 11/11/22 0920 <Electronically signed by Timmy Alcazar DO> Cosigner Signature (if applicable): CC: ~ Signed [facility] Work Phone: 1(718) 333-523104-04-[address] Zacarias [facility] November 10, 2022 5:32pm Note Date/Time November 10, 2022 2:[address] [facility] Medical Records Department [address] [place] [address] Progress Note 11/10/22 1444 MR#: [id number] Acct: [id number] Name: HANSEL LOVE Jr. Rep #:[id number] : 1970 52 From: Cally Zacarias MD [...] 78.6 H, Lymph % (Auto) 11.9 L, [place] % (Auto) 8.5, Eos % (Auto) 0.3, [...] 52 mins Charges/Coding Visit Charges Inpatient E&M: 51735 Subs Hosp 11/10/22 8344 <Electronically signed by Cally Zacarias MD> Cally Zacarias MD Cosigner Signature (if applicable): CC: ~ Signed [facility] Work Phone: 1(213) 163-649604-04-2023 [facility]-04[facility] Brown [facility] November 10, 2022 11:48am Note Date/Time November 10, 2022 11:4 8am [facility] Medical Records Department [address] [place] [address] Progress Note - Nephrology 11/10/22 1146 MR#: [id number] Acct: [id number] Name: HANSEL LOVE JrCristhian Rep #:[id number] : 1970 52 From: Rickey carter MD [...] 78.6 H, Lymph % (Auto) 11.9 L, [place] % (Auto) 8.5, Eos % (Auto) 0.3, [...] Cosigner Signature (if applicable): CC: ~ Signed [facility] Work Phone: [phone]) [phone] Alcazar [facility] November 10, 2022 9:47am Note Date/Time November 10, 2022 7:38 am [facility] Medical Records Department [address] [place] [address] Progress Note - Cooler Worker 11/10/22 0734 MR#: [id number] Acct: [id number] Name: HANSEL LOVE Jr. Rep #:[id number] : 1970 52 From: Timmy Alcazar DO [...] hold antihypertensives. This note was generated with [employer] dictation software. It may contain incorrectwords, spelling, [...] 78.6 H, Lymph % (Auto) 11.9 L, [place] % (Auto) 8.5, Eos % (Auto) 0.3, [...] 10:49 EDT Reading Location ID and State: [facility] / [place] , Service support , [employer] Rhythm [...] affect normal Charges/Coding Visit Charges Inpatient E&M: 81466 Subs Hosp L3 11/10/22 0947 <Electronically signed by Timmy Alcazar DO> Cosigner Signature (if applicable): CC: ~ Signed [facility] Work Phone: [phone]) 508-448504-04-[address] Alcazar [facility] November 10, 2022 7:34am Note Date/Time November 09, 2022 7:55 am [facility] Medical Records Department [address] [place] [address] Consultation - Cooler Worker 11/09/22 0749 MR#: [id number] Acct: [id number] Name: LOVEHANSEL PAULA Bray Rep #:[id number] : 1970 52 From: Timmy Alcazar DO [...] for now. This note was generated with [employer] dictation software. It may contain incorrectwords, spelling, [...] medical intensive care unit for further management. [facility] Medical History Acute encephalopathy Alcohol abuse, daily [...] 84.5 H, Lymph % (Auto) 8.2 L, [place] % (Auto) 2.8, Eos % (Auto) 0.2, [...] Clarity Clear, Urine pH 5.0, Ur Specific [place] 1.030, Urine Protein 30 H, Urine Glucose [...] EDT , Charges/Coding Visit Charges Inpatient E&M: 00911 Init Hosp L3 11/10/22 0734 <Electronically signed by Timmy Alcazar DO> Cosigner Signature (if applicable): CC: Dr. Rickey Brown MD; Dr. Zia Osman MD; Dr. Reed Espana MD; Dr. Jama Garner MD~ Signed [facility] Work Phone: 1([phone]) 211-686304-03-2023 Consult note Author Gino Friend [facility] November 09, 2022 6:57pm Note Date/Time November 09, 2022 6:57 pm [facility] Medical Records Department [address] [place] [address] Consultation - GI 11/09/22 1853 MR#: [id number] Acct: [id number] Name: HANSEL LOVE Jr. Rep #:[id number] : 1970 52 From: Gino Friend DO [...] for evaluation of his upper GI tract. [facility] Medical History Acute encephalopathy Alcohol abuse, daily [...] 84.5 H, Lymph % (Auto) 8.2 L, [place] % (Auto) 2.8, Eos % (Auto) 0.2, [...] Clarity Clear, Urine pH 5.0, Ur Specific [place] 1.030, Urine Protein 30 H, Urine Glucose [...] replete accordingly. Charges/Coding Visit Charges Inpatient E&M: 55956 Init Hosp L3 11/09/22 1857 <Electronically signed by Gino Briscoe DO> Cosigner Signature (if applicable): CC: Dr. Rickey Brown MD; Dr. Zia Osman MD; Dr. Reed Espana MD; Dr. Jama Garner MD~ Signed [facility] Work Phone: [phone]) [phone] Zacarias [facility] November 09, 2022 5:48pm Note Date/Time November 09, 2022 5:05 pm [facility] Medical Records Department [address] [place] [address] Progress Note 11/09/22 1656 MR#: [id number] Acct: [id number] Name: HANSEL LOVE Jr. Rep #:[id number] : 1970 52 From: Cally Zacarias MD PCP: Dr. Zia Omsan MD Status:AD M IN Location: ICU ICU05-1 [...] 84.5 H, Lymph % (Auto) 8.2 L, [place] % (Auto) 2.8, Eos % (Auto) 0.2, [...] Clarity Clear, Urine pH 5.0, Ur Specific [place] 1.030, Urine Protein 30 H, Urine Glucose [...] prophylaxis: SCDs. Charges/Coding Visit Charges Inpatient E&M: 42555 [facility] Hosp L3 11/09/22 0426 <Electronically signed by Cally Zacarias MD> Cally Zacarias MD Cosigner Signature (if applicable): CC: ~ Signed [facility] Work Phone: 1(119) [phone] Brown [facility] November 09, 2022 3:01pm Note Date/Time November 09, 2022 2:50 pm [facility] Medical Records Department [address] [place] [address] Consultation - Nephrology 11/09/22 1429 MR#: [id number] Acct: [id number] Name: HANSEL LOVE Jr. Rep #:[id number] : 1970 52 From: Sarahi yeager NP-C [...] this time there isno urgent need for SLUDGE FILTRATION ATTENDANT. Maciel catheter was placed with very scant [...] and recommend to continue with volume expansion. [id number] protein, 10 occult blood, 25 leukocyte esterase. [...] On patient's medication list is listed meloxicam. [facility] Medical History Acute encephalopathy Alcohol abuse, daily [...] 84.5 H, Lymph % (Auto) 8.2 L, [place] % (Auto) 2.8, Eos % (Auto) 0.2, [...] Clarity Clear, Urine pH 5.0, Ur Specific [place] 1.030, Urine Protein 30 H, Urine Glucose [...] Anmol Muhammad MD at 10:49 EDT , 11/09/22 1450 <Electronically signed by Sarahi RANDHAWA> Cosigner Signature (if applicable): 11/09/22 1501 <Electronically signed by Rickey Brown MD> CC: Dr. Rickey Brown MD; Dr. Zia Osman MD; Dr. Reed Espana MD; Dr. Jama Garner MD~ Signed [facility] Work Phone: 1([phone]) [phone] Mukherjee [facility] November 09, 2022 10:21am Note Date/Time November 09, 2022 2:39 am [facility] Medical Records Department [address] [place] [address] Emergency Department Summary 11/09/22 MR#: [id number] Acct: [id number] Name: HANSEL LOVE Jr. Rep #:[id number] : 1970 52 From: Ken Mukherjee MD PCP: Dr. Zia Osman MD Status:AD M IN Location: ICU ICU-1 [facility] History of Present Illness Chief Complaint: Seizure [...] similar symptoms: No Recent Illness/Hospitalization: No [facility] Medical History Acute encephalopathy Alcohol abuse, daily [...] 84.5 H Lymph % (Auto) 8.2 L [place] % (Auto) 2.8 Eos % (Auto) 0.2 [...] Color Urine Clarity Urine pH Ur Specific [place] Urine Protein Urine Glucose (UA) Urine Ketones [...] (Auto) Neut % (Auto) Lymph % (Auto) [place] % (Auto) Eos % (Auto) Baso % [...] Color Urine Clarity Urine pH Ur Specific [place] Urine Protein Urine Glucose (UA) Urine Ketones [...] (Auto) Neut % (Auto) Lymph % (Auto) [place] % (Auto) Eos % (Auto) Baso % [...] Clarity Clear Urine pH 5.0 Ur Specific [place] 1.030 Urine Protein 30 H Urine Glucose [...] rate of 114. No acute signs of CA or ischemia. Differential Diagnosis Differential Diagnosis: Sepsis on variety of causes. COVID. Clinically is dehydrated. He is hypotensive and hypoxic. He has had falls. Critical Care Time Critical Care Time: Yes Critical care time (excluding procedures): 30-74 minutes, 75-104 minutes, Including time spent:, Discussing w/Patient &/or Family/Training And Development Coordinator, Discussing w/Consultants, Arranging Admission or Transfer, Performing Direct Patient Care atBedside and - (35 min) Discharge Plan Dx/Rx/DC Orders Clinical Impression: Acute alteration in mental status, Acute encephalopathy, Acute hypotension, Acute dehydration, Falls, Hypoxia, Head injury, Seizure in response to acute event, Acute kidney failure, Metabolic acidosis, Acute lactic acidosis Disposition Disposition: [facility] What to do if you have Problems For any increased pain, shortness of breath, bleeding, nausea or vomiting, chestpain, or any unexpected problems, contact your Primary Care Provider. Call [facility] ([phone]) or report to the closest Emergency Room. Call 911 if necessary. 11/09/22 1021 <Electronically signed by Ken Mukherjee MD> Cosigner Signature (if applicable): CC: Dr. Zia Osman MD ~ Signed [facility] Work Phone: [phone]) 496-417904-03-[address] Espana [facility] November 09, 2022 8:10am Note Date/Time November 09, 2022 8:10 am [facility] Medical Records Department [address] [place] [address] Telemedicine Confirmation Receipt 11/09/22 MR#: [id number] Acct: [id number] Name: HANSEL LOVE JrCristhian Rep #: : 1970 52 From: Reed Espana MD PCP: Dr. Zia Osman MD Status:AD M IN [facility] has confirmed receipt of a request for visit. This document confirms receipt of the order initiating the consult. To find the results of the consultation, please view the patient's reports for the scanned Telemed Consult. [facility] Work Phone: 1(323) 614-158104-03-2023 History and physical note Author Dr. Espana [facility] November 09, 2022 6:28am Note Date/Time November 09, 2022 5:23 am [facility] Medical Records Department [address] [place] [address] H&P Exam - Hospitalist 11/09/22 0522 MR#: [id number] Acct: [id number] Name: HANSEL LOVE JrCristhian Rep #: : [...] did not remember majority of the history. [facility] Medical History Acute encephalopathy Alcohol abuse, daily [...] 84.5 H, Lymph % (Auto) 8.2 L, [place] % (Auto) 2.8, Eos % (Auto) 0.2, [...] Clarity Clear, Urine pH 5.0, Ur Specific [place] 1.030, Urine Protein 30 H, Urine Glucose [...] responsive hypotension Charges/Coding Visit Charges Inpatient E&M: 81014 Init Hosp 11/09/22627 <Electronically signed by Reed Espana MD> Cosigner Signature (if applicable): CC: Dr. Zia Osman MD; Dr. Reed Espana MD~ Signed [facility] Work Phone: 1(333) 196-216312-28-2017 History of Past illness Narrative* Problem Noted Date Resolved Date Alcohol use 08/05/2017 08/05/2017 documented as of this encounter (statuses as of 01/05/2023) [facility]12[facility]28-2017 History of Past illness Narrative* Problem Noted Date Resolved Date Alcohol use 08/05/2017 08/05/2017 documented as of this encounter (statuses as of 01/08/2023) [facility]2017 History of Past illness Narrative* Problem Noted Date Resolved Date Alcohol use 08/05/2017 08/05/2017 documented as of this encounter (statuses as of 02/01/2023) [address]28-2017 History of Past illness Narrative* Problem Noted Date Diagnosed Date Resolved Date Alcohol use 08/05/2017 08/05/2017 documented as of this encounter (statuses as of 03/04/2023) [facility]2017 History of Past illness Narrative* Problem Noted Date Diagnosed Date Resolved Date Alcohol use 08/05/2017 08/05/2017 documented as of this encounter (statuses as of 03/06/2023) [address]28-2017 History of Past illness Narrative* Problem Noted Date Diagnosed Date Resolved Date Alcohol use 08/05/2017 08/05/2017 documented as of this encounter (statuses as of 03/22/2023) [address]28-2017 History of Past illness Narrative* Problem Noted Date Diagnosed Date Resolved Date Alcohol use 08/05/2017 08/05/2017 documented as of this encounter (statuses as of 03/23/2023) [facility]2017 History of Past illness Narrative* Problem Noted Date Diagnosed Date Resolved Date Alcohol use 08/05/2017 08/05/2017 documented as of this encounter (statuses as of 04/14/2023) [address]28-2017 History of Past illness Narrative* Problem Noted Date Diagnosed Date Resolved Date Alcohol use 08/05/2017 08/05/2017 documented as of this encounter (statuses as of 06/01/2023) [facility]2017 History of Past illness Narrative* Problem Noted Date Diagnosed Date Resolved Date Alcohol use 08/05/2017 08/05/2017 documented as of this encounter (statuses as of 06/08/2023) [address]28-2017 History of Past illness Narrative* Problem Noted Date Diagnosed Date Resolved Date Alcohol use 08/05/2017 08/05/2017 documented as of this encounter (statuses as of 07/08/2023) [address]28-2017 History of Past illness Narrative* Problem Noted Date Diagnosed Date Resolved Date Alcohol use 08/05/2017 08/05/2017 documented as of this encounter (statuses as of 09/10/2023) [address]28-2017 History of Past illness Narrative* Problem Noted Date Diagnosed Date Resolved Date Alcohol use 08/05/2017 08/05/2017 documented as of this encounter (statuses as of 09/10/2023) [address] History of Past illness Narrative* Problem Noted Date Diagnosed Date Resolved Date Alcohol use 08/05/2017 08/05/2017 documented as of this encounter (statuses as of 09/13/2023) [facility]2017 History of Past illness Narrative* Problem Noted Date Diagnosed Date Resolved Date Alcohol use 08/05/2017 08/05/2017 documented as of this encounter (statuses as of 09/20/2023) [facility]2017 History of Past illness Narrative* Problem Noted Date Diagnosed Date Resolved Date Alcohol use 08/05/2017 08/05/2017 documented as of this encounter (statuses as of 09/29/2023) [facility]2017 History of Past illness Narrative* Problem Noted Date Diagnosed Date Resolved Date Alcohol use 08/05/2017 08/05/2017 documented as of this encounter (statuses as of 09/29/2023) [facility] History of Past illness Narrative* Problem Noted Date Diagnosed Date Resolved Date Alcohol use 08/05/2017 08/05/2017 documented as of this encounter (statuses as of 10/25/2023) [facility] November 13, 2022 4:07pm Note Date/Time November 13, 2022 4:[address] [facility] Medical Records Department [facility] [place] [address] Instructions for Home/Discharge Instructions 11/13/22 1607 MR#: [id number] Acct: [id number] Name: HANSEL LOVE Jr. Rep #:[id number] : 1970 52 From: Cally Zacarias MD [...] MD; Dr. Jama Garner MD ~ Signed [facility] Work Phone: Discharge summary Author Dr. Davidson [facility] November 19, 2022 12:53pm Note Date/Time November 19, 2022 12: 53pm [facility] Medical Records Department [address] [place] [address] Instructions for Home/Discharge Instructions 11/19/22 1252 MR#: [id number] Acct: [id number] Name: HANSEL LOVE Jr. Rep #:[id number] : 1970 52 From: Jsuta Davidson MD PCP: Dr. Zia Osman MD [...] can take an equivalent alternate calcium supplement [id number] -Would recommend lab work (CMP and magnesium) [...] to schedule your hospital follow-up appointment (ph. [phone]) -Please call your primary care provider's office [...] to schedule your hospital follow-up appointment (ph. [phone])) Disposition Disposition (needs filled in before D/C Order can be placed): Home, Self Care 11/19/22 4620<Electronically signed by Justa Davidson MD>Justa Davidson MD CC: Dr. Zia Osman MD ~ Signed [facility] Work Phone: evaluation noteNo assessment information available [facility] Work Phone: evaluation note* Diagnosis Onset Date Resolution Status Right shoulder injury acute Right shoulder pain acute [facility] Work Phone: evaluation note* Diagnosis Onset Date Resolution Status Right shoulder injury acute Right shoulder pain acute Impingement syndrome of right shoulder acute [facility] Work Phone: evaluation note* Diagnosis Onset [...] Septic shock acute Upper GI bleed acute [facility] Work Phone: evaluation note* Diagnosis Onset [...] acute Hypomagnesemia acute Sinus tachycardia seen on food service assistant [facility] Work Phone: Evaluation note* Diagnosis Onset [...] acute Hypomagnesemia acute Sinus tachycardia seen on food service assistant [facility] Work Phone: Evaluation note* Diagnosis Heartburn- Primary Peripheral edema Edema Primary hypertension Unspecified essential hypertension [facility]* Diagnosis Peripheral edema- Primary Edema [facility]* Diagnosis Bilateral lower extremity edema- Primary [...] depression type Hypocalcemia [facility]* Diagnosis Peripheral edema Edema BPH with obstruction/lower urinary tract symptoms Hypertrophy of prostate with urinary obstruction and other lower urinary tract symptoms (LUTS) [facility]* Diagnosis Heartburn [facility]* Diagnosis Gastroesophageal reflux disease, unspecified whether esophagitis present- Primary Essential hypertension, benign Depression, unspecified depression type Anxiety Anxiety state, unspecified Hyponatremia Hyposmolality and/or hyponatremia Bilateral lower extremity edema Edema Itching with irritation Unspecified pruritic disorder documented in this encounter [facility] note* Diagnosis Essential hypertension, benign- Primary Peripheral edema Edema Gastroesophageal reflux disease, unspecified whether esophagitis present Anxiety Anxiety state, unspecified Depression, unspecified depression type Hypomagnesemia Disorders of magnesium metabolism Hyponatremia Hyposmolality and/or hyponatremia Eczema, unspecified type [facility] Hypomagnesemia- Primary Disorders of magnesium metabolism [facility] Diagnosis BPH with obstruction/lower urinary tract symptoms Hypertrophy of prostate with urinary obstruction and other lower urinary tract symptoms (LUTS) [facility] Diagnosis Peripheral edema Edema Primary hypertension Unspecified essential hypertension Heartburn [facility] Diagnosis BPH with obstruction/lower urinary tract symptoms Hypertrophy of prostate with urinary obstruction and other lower urinary tract symptoms (LUTS) [facility] Diagnosis Heartburn Peripheral edema Edema BPH with obstruction/lower urinary tract symptoms Hypertrophy of prostate with urinary obstruction and other lower urinary tract symptoms (LUTS) Primary hypertension Unspecified essential hypertension Hypomagnesemia Disorders of magnesium metabolism [facility] Diagnosis Heartburn Peripheral edema Edema Primary hypertension Unspecified essential hypertension [facility] Diagnosis Wellness examination- Primary Gastroesophageal reflux [...] Tobacco use disorder [facility] Diagnosis Hypomagnesemia- Primary Disorders of magnesium metabolism [facility] Diagnosis Peripheral edema Edema Primary hypertension Unspecified essential hypertension Hypomagnesemia Disorders of magnesium metabolism Heartburn [facility] Author Dr. Davidson [facility] November 17, 2022 5:45pm Note Date/Time November 17, 2022 4:4 2pm [facility] Medical Records Department [address] [place] [address] H&P Exam - Hospitalist 11/17/22 1641 MR#: [id number] Acct: [id number] Name: HANSEL LOVE Jr. Rep #:[id number] : 1970 52 From: Justa Davidson MD PCP: Dr. Zia Osman MD Status:AD M IN Location: [facility] [id number] HPI - General General Date of Admission: 11/17/22 Date of Service: 11/17/22 Chief Complaint: Abnormal labs HPI Narrative HANSEL LOVE, is a 52 M with a history of gout, alcohol use disorder in early remission, GI bleed status post cauterization, BPH who presented to [facility] 11/17/22 due to lab abnormalities. He [...] vomiting, overall eating well. Denied urinary complaints. [facility] Medical History Acute encephalopathy Alcohol abuse, daily [...] documentation, 60minutes Charges/Coding Visit Charges Inpatient E&M: 67630 Init Hosp L2 11/17/22 1745 <Electronically signed by Justa Davidson MD> Cosigner Signature (if applicable): CC: Dr. Zia Osman MD; Dr. Justa Davidson MD~ Signed [facility] Work Phone: [employer] for referral (narrative)* Diagnostic Procedure Only (Routine) - Pending Review Specialty Diagnoses / Procedures Referred By Contac t Referred To Contact US IMAGING Diagnoses Bilateral lower extremity edema Procedures US VENOUS REFLUX BILATERAL DUP-SCAN XTR VEINS COMPLETE BILATERAL STUDY Celina Tesfaye MD [address] [place] [address] Us Imaging Referral ID Status Reason Start Date Expiration Date Visits Requested Visits Authorized [id number] Pending Review Auto-Generat ed Referral 03/03/2023 04/01/2024 1 1 [facility] for referral (narrative)* Outpatient Procedure (Routine) - Authorized Specialty Diagnoses / Procedures Referred By Contac t Referred To Contact [facility] Diagnoses Bilateral lower extremity edema Procedures PVR ANK PRESS LEONOR VAS LAB NON-INVAS PHYSIOLOGIC STD EXTREMITY ART 2 LEVEL Anjelica Munoz APRN.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 TECHNICIAN [address] [place] [address] [facility] [address] [place] [address] Referral ID Status Reason Start Date Expiration Date Visits Requested Visits Authorized [id number] Authorized Auto-Generat ed Referral 3 06/06/2024 1 1 * Outpatient Procedure (Routine) - Authorized Specialty Diagnoses / Procedures Referred By Contac t Referred To Contact [facility] Diagnoses Bilateral lower extremity edema Procedures US LEG ARTERIAL PERIPH LEONOR VAS LAB DUP-SCAN LXTR ART/ARTL BPGS COMPL BI STUDY Anjelica Munoz APRN.CNP [address] [place] [address] [facility] [address] [place] [address] Referral ID Status Reason Start Date Expiration Date Visits Requested Visits Authorized [id number] Authorized Auto-Generat ed Referral 3 06/06/2024 1 1 [facility] Summary Purpose Family History Relationship Condition Age at Onset Recorded Date/T juan ramon sister Diabetes mellitus Unknown Cardiac disease Unknown mother Coronary artery disease Unknown Advance Directives Advance Directive Response Recorded Date/ Time Advance Directives No June 8:01pm Living Will No May 30 5:44pm Power of Dispatch Coordinator No May 30, 2018 5:44pm Advance Directive Response Recorded Date/ Time Advance Directives No June 7:01pm Living Will No May 30 4:44pm Power of Dispatch Coordinator No May 30, 2018 4:44pm Advance Directive Response Recorded Date/ Time Advance Directives No July 14, 2022 4:43pm Living Will No July 14 4:43pm Power of Dispatch Coordinator No July 14, 2022 4:43pm Advance Directive Response Recorded Date/ Time Advance Directives No July 14, 2022 5:43pm Living Will No November 09, 2022 2:50am Power of Dispatch Coordinator No November 09 2:50am Advance Directive Response Recorded Date/ Time Advance Directives No July 14, 2022 5:43pm Living Will No November 09, 2022 5:43am Power of Dispatch Coordinator No November 09 5:43am Advance Directive Response Recorded Date/ Time Advance Directives No November 16, 2:30pm Living Will No November 17, 2022 3:07pm Power of Dispatch Coordinator No November 17 3:07pm Advance Directive Response Recorded Date/ Time Advance Directives No November 16, 2:30pm Living Will No November 17, 2022 6:44pm Power of Dispatch Coordinator No November 17 6:44pm Chief Complaint and [...] Hypocalcemia syndrome Hypomagnesemia Sinus tachycardia seen on food service assistant Chief Complaint PAIN AND INJURY RIGHT SHOULDER [...] Hypocalcemia syndrome Hypomagnesemia Sinus tachycardia seen on food service assistant Chief Complaint PAIN AND INJURY RIGHT SHOULDER [...] Hypocalcemia syndrome Hypomagnesemia Sinus tachycardia seen on food service assistant Reason for Referral Specialty Diagnoses / Procedures Referred By Enma marsh Referred To Contact Dermatology Diagnoses Eczema, unspecified type Procedures CONSULT TO DERMATOLOGY Anjelica Munoz APRN.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 TECHNICIAN [address] [place] [address] Referral ID Status Reason Start Date Expiration Date Visits Requested Visits Authorized [id number] Ref Not Required PCP Requested Referral 09/09/2023 09/08/2024 1 1 Additional Source Comments (unrecognized sect ion and content) No Status Records FoundNo Status Records FoundNo Status Records Found INFORMATION SOURCE (unrecogn ized section and content) DATE CREATED AUTHOR 01/27/2018 [facility] ([place]) DATE CREATED AUTHOR AUTHOR'S ORGANIZ ATION 11/20/2023 [facility] DATE CREATED AUTHOR AUTHOR'S ORGANIZ ATION 01/04/2025 [facility] Goals (unrecognized section and content) Goals may [...] Provider Active SYDNEE Rodriguez Attending Provider Active Preschool Principal Relationship Specialty Start Date End Date Pcp, No PCP - General 12/18/22 07/08/23 Preschool Principal Relationship Specialty Start Date End Date Pcp, No PCP - General 12/18/22 07/08/23 Preschool Principal Relationship Specialty Start Date End Date Pcp, No PCP - General 12/18/22 07/08/23 Preschool Principal Relationship Specialty Start Date End Date Celina Tesfaye MD [address] [facility] [place] [address] PCP - General Family Medicine 03/03/23 Preschool Principal Relationship Specialty Start Date End Date Celina Tesfaye MD [address] [facility] [place] [address] PCP - General Family Medicine 03/03/23 Preschool Principal Relationship Specialty Start Date End Date Celina Tesfaye MD [address] [facility] [place] [address] PCP - General Family Medicine 03/03/23 Preschool Principal Relationship Specialty Start Date End Date Celina Tesfaye MD [address] [facility] [place] [address] PCP - General Family Medicine 03/03/23 Preschool Principal Relationship Specialty Start Date End Date Celina Tesfaye MD [address] [facility] [place] [address] PCP - General Family Medicine 03/03/23 Preschool Principal Relationship Specialty Start Date End Date Celina Tesfaye MD [address] [facility] [place] [address] PCP - General Family Medicine 03/03/23 Preschool Principal Relationship Specialty Start Date End Date Celina Tesfaye MD [address] [facility] [place] [address] PCP - General Family Medicine 03/03/23 Preschool Principal Relationship Specialty Start Date End Date Celina Tesfaye MD [address] [facility] [place] [address] PCP - General Family Medicine 03/03/23 Preschool Principal Relationship Specialty Start Date End Date Celina Tesfaye MD [address] [facility] [place] [address] PCP - General Family Medicine 03/03/23 Preschool Principal Relationship Specialty Start Date End Date Celina Tesfaye MD [address] [facility] [place] [address] PCP - General Family Medicine 03/03/23 Preschool Principal Relationship Specialty Start Date End Date Celina Tesfaye MD [address] [facility] [place] [address] PCP - General Family Medicine 03/03/23 Preschool Principal Relationship Specialty Start Date End Date Celina Tesfaye MD [address] [facility] [place] [address] PCP - General Family Medicine 03/03/23 Preschool Principal Relationship Specialty Start Date End Date Celina Tesfaye MD [address] [facility] [place] [address] PCP - General Family Medicine 03/03/23 Preschool Principal Relationship Specialty Start Date End Date Celina Tesfaye MD [address] [facility] [place] [address] PCP - General Family Medicine 03/03/23 Preschool Principal Relationship Specialty Start Date End Date Celina Tesfaye MD [address] [facility] [place] [address] PCP - General Family Medicine 03/03/23 Danna Guillory APRN.CNP [address] [facility] [place] [address] [facility] Preschool Principal Relationship Specialty Start Date End Date Celina Tesfaye MD [address] [facility] [place] [address] PCP - General Family Medicine 03/03/23 Podlogar, JARVIS ClayN.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 TECHNICIAN [address] [place] [address] Enrichment Director Family Medicine 07/15/24 Anjelica Munoz APRN.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 TECHNICIAN [address] [place] [address] [facility] 10/30/24 Preschool Principal Relationship Specialty Start Date End Date Celina Tesfaye MD [address] [place] [address] PCP - General Family Medicine 03/03/23 Podlogar, Danna 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.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 TECHNICIAN [address] [place] [address] [facility] Medicine 07/15/24 Anjelica Munoz 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.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 TECHNICIAN [address] [place] [address] [facility] 10/30/24 Preschool Principal Relationship Specialty Start Date End Date Celina Tesfaye MD [address] [place] [address] PCP - General Family Medicine 03/03/23 Podlogar, Danna, 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.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 TECHNICIAN [address] [place] [address] [facility] 07/15/24 Anjelica Munoz APRN.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 TECHNICIAN [address] [place], [place] [address] [facility] 10/30/24 Preschool Principal Relationship Specialty Start Date End Date Celina Tesfaye MD [address] [place], [place] [address] PCP - General Family Medicine 03/03/23 MarylogDanna fitzgerald APRN.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 TECHNICIAN [address] [place], [place] [address] [facility] 07/15/24 Anjelica Munoz APRN.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 TECHNICIAN [address] [place] [address] [facility] 01/18/25 Source Comments (unrecognize d section and content) In the event this informatio n is protected by the Federal Confidentiality of Alcohol and Drug Abuse Patient Records regulations: The Federal rules restrict any use of the information to criminally investigate or prosecute any alcohol or drug abuse patient.[facility] Center[facility] the event this information is protected by the Federal Confidentiality of Alcohol and Drug Abuse Patient Records regulations: The Federal rules restrict any use of the information to criminally investigate or prosecute any alcohol or drug abuse patient.[facility] CenterIn the event this information is protected by the Federal Confidentiality of Alcohol and Drug Abuse Patient Records regulations: The Federal rules restrict any use of the information to criminally investigate or prosecute any alcohol or drug abuse patient.[facility] Center[facility] the event this information is protected by the Federal Confidentiality of Alcohol and Drug Abuse Patient Records regulations: The Federal rules restrict any use of the information to criminally investigate or prosecute any alcohol or drug abuse patient.[facility] Center[facility] the event this information is protected by the Federal Confidentiality of Alcohol and Drug Abuse Patient Records regulations: The Federal rules restrict any use of the information to criminally investigate or prosecute any alcohol or drug abuse patient.[facility] CenterIn the event this information is protected by the Federal Confidentiality of Alcohol and Drug Abuse Patient Records regulations: The Federal rules restrict any use of the information to criminally investigate or prosecute any alcohol or drug abuse patient.[facility] CenterIn the event this information is protected by the Federal Confidentiality of Alcohol and Drug Abuse Patient Records regulations: The Federal rules restrict any use of the information to criminally investigate or prosecute any alcohol or drug abuse patient.[facility] CenterIn the event this information is protected by the Federal Confidentiality of Alcohol and Drug Abuse Patient Records regulations: The Federal rules restrict any use of the information to criminally investigate or prosecute any alcohol or drug abuse patient.[facility] Center[facility] the event this information is protected by the Federal Confidentiality of Alcohol and Drug Abuse Patient Records regulations: The Federal rules restrict any use of the information to criminally investigate or prosecute any alcohol or drug abuse patient.[facility] CenterIn the event this information is protected by the Federal Confidentiality of Alcohol and Drug Abuse Patient Records regulations: The Federal rules restrict any use of the information to criminally investigate or prosecute any alcohol or drug abuse patient.[facility] CenterIn the event this information is protected by the Federal Confidentiality of Alcohol and Drug Abuse Patient Records regulations: The Federal rules restrict any use of the information to criminally investigate or prosecute any alcohol or drug abuse patient.[facility] CenterIn the event this information is protected by the Federal Confidentiality of Alcohol and Drug Abuse Patient Records regulations: The Federal rules restrict any use of the information to criminally investigate or prosecute any alcohol or drug abuse patient.[facility] CenterIn the event this information is protected by the Federal Confidentiality of Alcohol and Drug Abuse Patient Records regulations: The Federal rules restrict any use of the information to criminally investigate or prosecute any alcohol or drug abuse patient.[facility] CenterIn the event this information is protected by the Federal Confidentiality of Alcohol and Drug Abuse Patient Records regulations: The Federal rules restrict any use of the information to criminally investigate or prosecute any alcohol or drug abuse patient.[facility] CenterIn the event this information is protected by the Federal Confidentiality of Alcohol and Drug Abuse Patient Records regulations: The Federal rules restrict any use of the information to criminally investigate or prosecute any alcohol or drug abuse patient.[facility] CenterIn the event this information is protected by the Federal Confidentiality of Alcohol and Drug Abuse Patient Records regulations: The Federal rules restrict any use of the information to criminally investigate or prosecute any alcohol or drug abuse patient.[facility] CenterIn the event this information is protected by the Federal Confidentiality of Alcohol and Drug Abuse Patient Records regulations: The Federal rules restrict any use of the information to criminally investigate or prosecute any alcohol or drug abuse patient.[facility] CenterIn the event this information is protected by the Federal Confidentiality of Alcohol and Drug Abuse Patient Records regulations: The Federal rules restrict any use of the information to criminally investigate or prosecute any alcohol or drug abuse patient.[facility] CenterIn the event this information is protected by the Federal Confidentiality of Alcohol and Drug Abuse Patient Records regulations: The Federal rules restrict any use of the information to criminally investigate or prosecute any alcohol or drug abuse patient.[facility] CenterIn the event this information is protected by the Federal Confidentiality of Alcohol and Drug Abuse Patient Records regulations: The Federal rules restrict any use of the information to criminally investigate or prosecute any alcohol or drug abuse patient.[facility] CenterIn the event this information is protected by the Federal Confidentiality of Alcohol and Drug Abuse Patient Records regulations: The Federal rules restrict any use of the information to criminally investigate or prosecute any alcohol or drug abuse patient.[facility] CenterIn the event this information is protected by the Federal Confidentiality of Alcohol and Drug Abuse Patient Records regulations: The Federal rules restrict any use of the information to criminally investigate or prosecute any alcohol or drug abuse patient.[facility] CenterIn the event this information is protected by the Federal Confidentiality of Alcohol and Drug Abuse Patient Records regulations: The Federal rules restrict any use of the information to criminally investigate or prosecute any alcohol or drug abuse patient.[facility] CenterIn the event this information is protected by the Federal Confidentiality of Alcohol and Drug Abuse Patient Records regulations: The Federal rules restrict any use of the information to criminally investigate or prosecute any alcohol or drug abuse patient.[facility] CenterIn the event this information is protected by the Federal Confidentiality of Alcohol and Drug Abuse Patient Records regulations: The Federal rules restrict any use of the information to criminally investigate or prosecute any alcohol or drug abuse patient.[facility] CenterIn the event this information is protected by the Federal Confidentiality of Alcohol and Drug Abuse Patient Records regulations: The Federal rules restrict any use of the information to criminally investigate or prosecute any alcohol or drug abuse patient.[facility] Reason for Visit (unrecogniz ed section and [...] BE BASED ON THE PRIMARY CLINICAL RECORDS. [facility] [email or web address] [facility]. provides no warranty or guarantee of the accuracy or completeness of information in this document.
[2025-03-17 15:18] LABS: Reflex Lactate? Y
--- NOTE | 2025-03-17 16:44 | PCM.RX.CS ---
Consult Antibiotic Management Pharmacy has been consulted to manage selected antibiotic: Vancomycin Type of Intervention Type of Consult: New start Prior Doses of Antibiotics Prior Doses of Antibiotics Received/Current Regimen: had vanc 1750mg IV x1 in E.R. starting at 13:32 today Labs Labs: Sodium 140 mmol/L (133-145) 03/17/25 11:12 Potassium 2.5 mmol/L (3.3-5.1) L* 03/17/25 11:12 Chloride 84 mmol/L (98-108) L 03/17/25 11:12 Carbon Dioxide 21.7 mmol/L (21.0-32.0) 03/17/25 11:12 Anion Gap 35 (5-15) H 03/17/25 11:12 BUN 24 mg/dL (4-19) H 03/17/25 11:12 Creatinine 2.91 mg/dL (0.70-1.20) H 03/17/25 11:12 Est GFR (MDRD) Non-Af 25 (>60) L 03/17/25 11:12 BUN/Creatinine Ratio 8.2 RATIO (10-20) L 03/17/25 11:12 Glucose 226 mg/dL (70-99) H 03/17/25 11:12 Microbiology Microbiology: Microbiology 03/17/25 11:12 Mucosa - Nose SARS-CoV-2, Influenza & RSV (PCR) - Final Dosing Weight Weight used for dosin.8 kg Estimated Creatinine Clearance Estimated Creatinine Clearance: 28 ml/min Goal Trough Goal Trough: 15-20 mcg/mL Pharmacy Plan for Drug Dosing Pharmacy Plan for Drug Dosing: Starting 24 hours after the E.R. dose, continue with 750mg IV q24h per [facility] dosing chart. Will check a vanc trough before the 3rd overall dose. Pharmacy Service will continue to monitor and adjust dosing as required. Follow-Up Labs Follow-Up Labs: Trough: Vancomycin Date/Time Labs Ordered Labs to be done on [date and time ordered]: 03/19/25 13:30
[2025-03-17 16:48] LABS: Troponin T High Sens 4 HR 146 ng/L (<=22)
[2025-03-17] MEDS: KCL 20MEQ in 0.9% NS 20 MEQ/1,000 ML IV.SOLN. 150 MEQ IV ×2 (16:52→23:33)
[2025-03-17] MEDS: Cefepime HCl 1 GM in 0.9% Normal Saline (50mL MB+) 50 ML IV (17:00)
--- NOTE | 2025-03-17 18:57 | PCM.HP.STD ---
HPI - General General Date of Admission: 03/17/25 Date of Service: 03/17/25 Chief Complaint: Generalized weakness, vomiting HPI Narrative ELIE GAMEZ, is a 54 M who presents to the emergency room at [facility] with generalized weakness and inability to walk due to weakness. Patient also has had vomiting over the last 48 hours, he denies any diarrhea. Patient denies any cough, dysuria, and he denied any fevers or chills. Workup in the emergency room included a CBC which was abnormal for a white blood cell count of 23.1, hemoglobin was 19.9, chemistry profile was abnormal for potassium of 2.5, BUN was 24, creatinine was 2.9, glucose was 226, lactic acid was 6.6, magnesium was low at 0.5, troponin was elevated at 160, repeat troponin was 153. Anion gap was elevated at 35. Urinalysis was unremarkable except for the presence of occult blood, 10-25 RBCs, 5-10 WBCs, and no bacteria. Chest x-ray showed no acute abnormality, brain CT was unremarkable, and CT of the abdomen pelvis showed no acute abdominal pelvic abnormalities. Patient was given IV antibiotics due to his abnormal white blood cell count and elevated lactic acid, exact etiology of his possible sepsis is unknown at this time, patient will be admitted to PCU for possible sepsis, vital signs are stable at this time, he will be given IV fluids and IV antibiotics. Blood cultures were obtained and will be pending. Patient's blood sugars will be monitored. [facility] Medical History Abnormal endoscopy of upper gastrointestinal tract Loss of hearing Loose, teeth Alcohol use Marijuana use Gout Rheumatoid arthritis Arthritis Back pain Seizures History of IBS Heartburn History of edema Elevated liver enzymes Crohn's disease Abnormal CT scan Alcoholism Falls Perianal abscess Serotonin syndrome Urinary retention due to benign prostatic hyperplasia Acute encephalopathy Alcohol abuse, daily use Depression Serotonin syndrome Smoker GERD (gastroesophageal reflux disease) HTN (hypertension) Home Medications ?Medication ?Instructions ?Recorded ?Last Taken ?Type finasteride 5 mg tablet 5 mg PO DAILY #30 tabs 06/20/17 11/17/22 Rx tamsulosin 0.4 mg capsule 0.4 mg PO DAILY@1730 PROSTATE 06/29/17 11/17/22 History vitamin B12 500 mcg-folic acid 400 1 tab PO QDAY supplement 01/04/18 11/17/22 History mcg tablet allopurinol 300 mg tablet 300 ea PO DAILY gout 11/17/22 11/17/22 History amlodipine 10 mg tablet 10 mg PO DAILY BP 11/17/22 11/17/22 History calcium citrate 400 mg (2 x 200 mg (950 mg)) PO 11/19/22 Unknown Rx BID 30 days #120 tabs magnesium oxide 400 mg (241.3 mg 800 mg (2 x 400 mg (241.3 mg 11/19/22 Unknown Rx magnesium) tablet magnesium)) PO BIDCM SUPPLEMENT 30 days #120 tabs omeprazole 20 mg capsule,delayed 20 mg PO DAILY 01/07/23 Unknown History release Allergy/AdvReac Type Severity Reaction Status Date / Time Penicillins Allergy Unknown Verified 03/17/25 10:50 fluoxetine (From Prozac) AdvReac Other Verified 03/17/25 10:50 Family History Sister Diabetes Heart disease Mother CAD (coronary artery disease) Surgical History S/P right knee arthroscopy S/P tonsillectomy Social History Smoking Status: Current every day smoker tobacco type: cigarettes alcohol intake: current alcohol intake frequency: holidays/special occasions only ROS Constitutional Constitutional: Reports fatigue and weakness; Denies anorexia, change in weight, chills, fever(s) or night sweats Eyes Eyes: Denies blurry vision, change in vision, discharge from eye(s) or eye pain Cardiovascular Cardiovascular: Denies chest pain, claudication, dyspnea on exertion, edema or palpitations Respiratory/Chest Respiratory/Chest: Denies cough, dyspnea, excessive phlegm production, hemoptysis, productive cough, shortness of breath at rest or shortness of breath with exertion Gastrointestinal Gastrointestinal: Reports nausea and vomiting; Denies abdominal pain, constipation, diarrhea, hematemesis, hematochezia or melena Genitourinary Genitourinary: Denies dysuria, hematuria, urinary frequency, urinary hesitancy, urinary incontinence or urinary urgency Musculoskeletal Musculoskeletal: Denies back pain, joint pain, joint stiffness, joint swelling, myalgias or neck pain Neurologic Neurologic: Denies abnormal gait, abnormal speech, confusion, dizziness, focal weakness, headache(s), loss of vision, numbness, other visual disturbances, paresthesias, syncope or tingling Psychiatric Psychiatric: Denies anxiety, cognitive impairment, depression, irritability, mood swings or suicidal ideation Endocrine Endocrinology: Denies change in body appearance, cold intolerance, excessive sweating, heat intolerance, polydipsia or polyuria Hematologic/Lymphatic Hematologic/Lymphatic: Denies none, anemia, easy bleeding, easy bruising or lymphadenopathy Allergic/Immunologic Allergic/Immunologic: Denies rhinitis, urticaria, eczemia or asthma Vital Signs Vital Signs Vital Signs: 03/17/25 10:46 03/17/25 10:46 03/17/25 11:49 Temperature 97.6 F L 98.8 F Temperature Source Oral Oral Pulse Rate 110 H 107 H Respiratory Rate 28 H 34 H Respiratory Effort Normal Non-Labored Respiratory Pattern Tachypnea Blood Pressure 140/113 H 166/108 H Blood Pressure Mean 122 127 Pulse Ox 100 100 Oxygen Delivery Method Room Air Room Air 03/17/25 11:56 03/17/25 12:00 03/17/25 12:15 Temperature Temperature Source Pulse Rate 101 H 98 Respiratory Rate 31 H 29 H Respiratory Effort Respiratory Pattern Blood Pressure 148/102 H 166/108 H Blood Pressure Mean 116 125 Pulse Ox 97 97 Oxygen Delivery Method 03/17/25 12:30 03/17/25 12:30 03/17/25 12:45 Temperature Temperature Source Pulse Rate 81 Respiratory Rate 27 H Respiratory Effort Respiratory Pattern Blood Pressure 154/98 H 154/98 H 121/73 H Blood Pressure Mean 115 115 88 Pulse Ox 99 Oxygen Delivery Method 03/17/25 12:53 03/17/25 13:00 03/17/25 13:15 Temperature Temperature Source Pulse Rate 105 H 105 H Respiratory Rate 36 H 27 H Respiratory Effort Respiratory Pattern Blood Pressure 151/103 H 137/96 H Blood Pressure Mean 113 109 Pulse Ox 98 Oxygen Delivery Method 03/17/25 13:30 03/17/25 13:45 03/17/25 13:47 Temperature 99.6 F H 99.6 F H Temperature Source Core Pulse Rate 93 93 Respiratory Rate 43 H 30 H Respiratory Effort Respiratory Pattern Blood Pressure 142/89 H 130/87 H 130/87 H Blood Pressure Mean 105 102 101 Pulse Ox 100 Oxygen Delivery Method 03/17/25 14:00 03/17/25 14:15 Temperature 99.7 F H 99.5 F H Temperature Source Core Core Pulse Rate 72 Respiratory Rate 41 H Respiratory Effort Respiratory Pattern Blood Pressure 147/90 H 152/93 H Blood Pressure Mean 107 111 Pulse Ox 100 100 Oxygen Delivery Method Weight Weight: 69.8 kg Body Mass Index (BMI) 22.7 Physical Exam Const alert, oriented x3, no apparent distress and healthy appearing General Appearance: cooperative, well kempt and well developed Orientation / Consciousness: awake, oriented to person, oriented to place and oriented to time HEENT normocephalic, hearing grossly normal bilaterally and moist oral mucous membranes Eyes PERRL, EOMs intact bilaterally and conjunctivae normal Neck supple, no JVD, thyroid normal and no carotid bruits General: trachea midline Resp normal respiratory effort, no retractions, no use of accessory muscles and clear to auscultation bilaterally Auscultation: Negative for rales, rhonchi or wheezes Cardio regular rate, regular rhythm, no murmurs, no rub and no gallops GI normal to inspection, nondistended, normoactive bowel sounds, non-tender and non-distended GI Narrative: Abdomen is mildly tender to palpation across the mid abdominal area, no rebound abdominal tenderness was noted Extremity no clubbing, cyanosis or edema Skin no rashes or lesions noted General Skin Exam: no breakdown Neuro oriented x3, CN's II-XII intact bilaterally, moves all extremities, no focal motor deficits and no sensory deficits noted Sensorium / Orientation: awake and alert Speech: speech normal Psych affect normal Results Lab / Micro Data 03/17/25 11:12 03/17/25 11:12 Labs: Laboratory Results - last 24 hr 03/17/25 11:12: WBC 23.1 H, RBC 5.99, Hgb 19.9 H*, Hct 56.0 H, MCV 93.5, MCH 33.2 H, MCHC 35.5, RDW Std Deviation 45.1 H, RDW Coeff of Oleksandr 13.2, Plt Count 529 H, MPV 9.5, Immature Gran % (Auto) 0.700, Neut % (Auto) 90.0 H, Lymph % (Auto) 3.5 L, [place] % (Auto) 5.6, Eos % (Auto) 0.0, Baso % (Auto) 0.2, Absolute Neuts (auto) 20.8 H, Absolute Lymphs (auto) 0.81 L, Nucleated RBC % 0, Platelet Estimate MOD INC, Sodium 140, Potassium 2.5 L*, Chloride 84 L, Carbon Dioxide 21.7, Anion Gap 35 H, BUN 24 H, Creatinine 2.91 H, Estim Creat Clear Calc 28.03 L, Est GFR (MDRD) Non-Af 25 L, BUN/Creatinine Ratio 8.2 L, Glucose 226 H, Lactic Acid 6.6 H*, Calcium 9.5, Magnesium 0.5 L*, Total Bilirubin 0.93, AST 66 H, ALT 31, Alkaline Phosphatase 115, Troponin T High Sens 160 H*, Total Protein 9.4 H, Albumin 5.8 H, Globulin 3.6, Albumin/Globulin Ratio 1.6, Lipase 34, Ethyl Alcohol < 10.1 03/17/25 13:27: Urine Color Yellow, Urine Clarity Sl. Cloudy, Urine pH 6.5, Ur Specific [place] 1.015, Urine Protein 500 H, Urine Glucose (UA) Normal, Urine Ketones 15 H, Urine Occult Blood 250 H, Urine Nitrite Negative, Urine Bilirubin Negative, Urine Urobilinogen Normal, Ur Leukocyte Esterase 25 H, Urine RBC 10-25 SEEN, Urine WBC 5-10 SEEN, Ur Squamous Epith Cells 0 SEEN, Ur Renal Epithelial Cell 0-5 SEEN, Urine Bacteria 0 SEEN, Hyaline Casts 0-5 SEEN, Fine Granular Casts 0-5 SEEN, Urine Mucus 0 SEEN 03/17/25 13:59: Troponin T Hi Sens 2 Hr 153 H* 03/17/25 16:00: Troponin T Hi Sens 4Hr 146 H* 03/17/25 16:13: Lactic Acid 3.6 H* 03/17/25 16:24: POC Glucose 155 H Micro: Microbiology 03/17/25 11:12 Mucosa - Nose SARS-CoV-2, Influenza & RSV (PCR) - Final ABG Data ABG results: ABG 03/17/25 11:19 Specimen Type YAO Sample Site Not entered VBG pH 7.48 H VBG pO2 49 H VBG HCO3 26 VBG Total CO2 27 VBG O2 Sat (Calc) 88 H VBG Base Excess 2 POC Mix VBG pCO2 Pt Tmp 34.3 L O2 Delivery Device Not entered Imaging Radiology Impression Abdomen/Pelvis CT 03/17/25 10:59 IMPRESSION: No acute abdominopelvic abnormalities. Reading Location: [facility] Chest X-Ray 03/17/25 10:59 IMPRESSION: No acute cardiopulmonary process Reading Location: [facility] Brain CT 03/17/25 11:52 IMPRESSION: No acute intracranial abnormalities. Reading Location: [facility] Assessment & Plan Assessment/Plan (1) Hypomagnesemia: PLAN: Plan 1. Possible sepsis-etiology unclear, patient will be admitted to PCU and be maintained on broad-spectrum antibiotics for now, labs will be obtained tomorrow morning. Patient has a marked leukocytosis. #2 electrolyte abnormalities including hypomagnesemia, hypokalemia-patient will be given magnesium replacement and potassium replacement, labs will be monitored. #3 lactic acidosis-etiology unclear at this point, again I suspect patient may have sepsis and he is being covered with broad-spectrum antibiotics. Blood cultures are pending #4 elevated blood sugars-patient's blood sugars will be monitored, sliding scale insulin will be administered as needed #5 severe dehydration-patient's creatinine and BUN are elevated, I do not have a recent creatinine or BUN in the system so I cannot call this in BLUE. Patient will be given IV fluids and labs will be monitored. #6 elevated troponin-troponin elevations are flat, patient does not complain of any chest pain, I suspect this could be secondary to demand ischemia. Total clinical time spent by myself addressing the patient's medical issues, reviewing all of his data, and collaborating with patient's care team: 75 minutes Charges/Coding Visit Charges Inpatient E&M: 54489 Init Hosp L3
[2025-03-17] MEDS: Heparin Injection (Vial) 5,000 UNIT/ML VIAL 5000 UNIT SC (21:56)
[2025-03-18] VITALS (7 sets, daily range): BP systolic 121–153; BP diastolic 75–102; PULSE 94–118; RESP 16–18; TEMP 36.8–37.7; O2SAT 98–100
[2025-03-18] MEDS: 0.9% Saline Lock 10 ML Syringe IV ×2 (01:01→10:36)
[2025-03-18] MEDS: KCL 20MEQ in 0.9% NS 20 MEQ/1,000 ML IV.SOLN. 150 MEQ IV (06:14)
[2025-03-18 06:48] LABS: Hematocrit 44.7 % (40-54); Hemoglobin 15.4 g/dL (13.0-16.5); Immature Granulocytes Count 0.080 X10^3/uL (0.0-0.0); Mean Corp Hgb Conc 34.5 g/dL (32-36); Mean Corpuscular Volume 97.6 fL (80-94); Mean Platelet Vol. 9.7 fl (6.2-12.0); NRBC Flagged by Analyzer 0 % (0-5); Platelet Count 338 K/mm3 (150-450); RBC Distribution Width CV 13.5 % (11.6-14.6); RBC Distribution Width SD 48.3 fl (35.1-43.9); Red Blood Count 4.58 M/mm3 (4.6-6.2); White Blood Count 16.6 K/mm3 (4.4-11.0)
[2025-03-18 07:02] LABS: Anion Gap 13 (5-15); BUN 18 mg/dL (4-19); BUN/Creat Ratio 17.0 RATIO (10-20); Calcium,Total 7.4 mg/dL (7.6-11.0); Carbon Dioxide 26.0 mmol/L (21.0-32.0); Chloride 102 mmol/L (98-108); Estimated Creatinine Clearance 77.01 ml/min (50-250); Glucose 98 mg/dL (70-99); Magnesium 2.8 mg/dL (1.5-2.2); Potassium 3.7 mmol/L (3.3-5.1)
[2025-03-18] MEDS: Heparin Injection (Vial) 5,000 UNIT/ML VIAL 5000 UNIT SC ×2 (09:16→20:44)
--- NOTE | 2025-03-18 10:24 | PCM.RX.CS ---
Consult Antibiotic Management Pharmacy has been consulted to manage selected antibiotic: Vancomycin Type of Intervention Type of Consult: Follow-up Suspected Infection Suspected Infection: Sepsis Prior Doses of Antibiotics Prior Doses of Antibiotics Received/Current Regimen: received vanc 1750mg x1 yesterday at 13:32 Labs Labs: Sodium 141 mmol/L (133-145) 03/18/25 05:10 Potassium 3.7 mmol/L (3.3-5.1) 03/18/25 05:10 Chloride 102 mmol/L (98-108) 03/18/25 05:10 Carbon Dioxide 26.0 mmol/L (21.0-32.0) 03/18/25 05:10 Anion Gap 13 (5-15) 03/18/25 05:10 BUN 18 mg/dL (4-19) 03/18/25 05:10 Creatinine 1.07 mg/dL (0.70-1.20) 03/18/25 05:10 Est GFR (MDRD) Non-Af 82 (>60) 03/18/25 05:10 BUN/Creatinine Ratio 17.0 RATIO (10-20) 03/18/25 05:10 Glucose 98 mg/dL (70-99) 03/18/25 05:10 Microbiology Microbiology: Microbiology 03/17/25 11:12 Mucosa - Nose SARS-CoV-2, Influenza & RSV (PCR) - Final Dosing Weight Weight used for dosin.8 kg Estimated Creatinine Clearance Estimated Creatinine Clearance: 77 ml/min Goal Trough Goal Trough: 15-20 mcg/mL Pharmacy Plan for Drug Dosing Pharmacy Plan for Drug Dosing: DAILY ASSESSMENT Current Vancomycin Dose: 750MG Q24H Number of Doses Received: RECEIVED ONLY THE LOAD OF 1750MG X1 YESTERDAY AT 13:32 Current Renal Function: SCr 1.07, CrCl 77 ML/MIN Renal Function Trend: SCr IMPROVED FROM 2.91 YESTERDAY AND CrCl FROM 28 YESTERDAY Any Change in Vanc Plan: WILL CHANGE DOSING TO 1000MG Q12H TO START SOON SINCE RENAL FUNCTION IMPROVED. HAD NOT RECEIVED ANY OF THE 750MG DOSES YET. Pending Level: 03/19/25 11:30 Pharmacy Service will continue to monitor and adjust dosing as required. Follow-Up Labs Follow-Up Labs: Trough: Vancomycin Date/Time Labs Ordered Labs to be done on [date and time ordered]: 03/19 11:30
[2025-03-18] MEDS: Cefepime HCl 1 GM in 0.9% Normal Saline (50mL MB+) 50 ML IV ×2 (10:35→20:43)
[2025-03-18] MEDS: Vancomycin HCl 1,000 MG in 0.9% Normal Saline (250mL Bag) 250 ML 250 MG IV ×2 (11:40→22:47)
--- NOTE | 2025-03-18 16:39 | PN.HOSP_ITS ---
Reason for Visit Chief Complaint: Generalized weakness, vomiting Subjective Subjective Patient was seen and examined today, his electrolytes are within normal range. His white blood cell count is improved. He complained to the nursing staff that he felt dizzy and had some double vision, he told nursing that the last time he was septic he had double vision also. I have elected to order an MRI of the brain tomorrow to rule out a CVA. Objective Data Objective Data Vital Signs: Vital Signs Temp Pulse Resp BP Pulse Ox O2 Del Method 98.2 F 98 18 122/93 H 99 Room Air 03/18/25 04:00 03/18/25 08:10 03/18/25 04:00 03/18/25 09:15 03/18/25 04:00 03/18/25 08:05 Oxygen Delivery Method Room Air Weight: 69.8 kg Body Mass Index (BMI) 22.7 Intake & Output: Intake and Output for Last 24 Hours 03/16/25 03/17/25 03/18/25 23:59 23:59 23:59 Intake Total 4764.17 / 5384.17 3012.5 / 3012.5 Output Total 450 / 1650 3200 / 3200 Balance 4314.17 / 3734.17 -187.5 / -187.5 Lab / Micro Data 03/18/25 05:10 03/18/25 05:10 Labs: Laboratory Results - last 24 hr 03/17/25 16:00: Troponin T Hi Sens 4Hr 146 H* 03/17/25 16:13: Lactic Acid 3.6 H* 03/17/25 16:24: POC Glucose 155 H 03/18/25 05:10: WBC 16.6 H, RBC 4.58 L, Hgb 15.4, Hct 44.7, MCV 97.6 H, MCH 33.6 H, MCHC 34.5, RDW Std Deviation 48.3 H, RDW Coeff of Oleksandr 13.5, Plt Count 338, MPV 9.7, Immature Gran % (Auto) 0.500, Neut % (Auto) 80.0 H, Lymph % (Auto) 10.4 L, [place] % (Auto) 8.4, Eos % (Auto) 0.5, Baso % (Auto) 0.2, Absolute Neuts (auto) 13.3 H, Absolute Lymphs (auto) 1.73, Nucleated RBC % 0, Sodium 141, Potassium 3.7, Chloride 102, Carbon Dioxide 26.0, Anion Gap 13, BUN 18, Creatinine 1.07, Estim Creat Clear Calc 77.01, Est GFR (MDRD) Non-Af 82, BUN/Creatinine Ratio 17.0, Glucose 98, Calcium 7.4 L, Magnesium 2.8 H 03/18/25 08:29: POC Glucose 132 H 03/18/25 11:49: POC Glucose 122 H Micro: Microbiology 03/17/25 11:12 Mucosa - Nose SARS-CoV-2, Influenza & RSV (PCR) - Final Physical Exam Const alert, oriented x3, no apparent distress and average body habitus General Appearance: cooperative, well kempt and well developed Orientation / Consciousness: awake, oriented to person, oriented to place and oriented to time HEENT normocephalic, head/scalp atraumatic and moist oral mucous membranes Eyes PERRL, EOMs intact bilaterally and conjunctivae normal Neck supple, no JVD, thyroid normal and no carotid bruits General: trachea midline Resp normal respiratory effort, no retractions, no use of accessory muscles and clear to auscultation bilaterally Auscultation: Negative for rales, rhonchi or wheezes Cardio regular rate, regular rhythm, S1 normal heart sound, S2 normal heart sound, no murmurs, no rub and no gallops GI normal to inspection, nondistended, normoactive bowel sounds, soft to palpation, non-tender and non-distended Extremity no clubbing, cyanosis or edema Skin no rashes or lesions noted General Skin Exam: no breakdown Neuro oriented x3, CN's II-XII intact bilaterally, no focal motor deficits and no sensory deficits noted Sensorium / Orientation: awake and alert Speech: speech normal Psych affect normal Assessment & Plan Assessment/Plan (1) Sepsis: (2) Hypomagnesemia: PLAN: Plan 1. Possible sepsis-etiology unclear, patient is leukocytosis is improved, continue present antibiotics and await cultures. #2 electrolyte abnormalities including hypomagnesemia, hypokalemia-resolved at this time #3 lactic acidosis-etiology unclear at this point, again I suspect patient may have sepsis and he is being covered with broad-spectrum antibiotics. Blood cultures are pending #4 elevated blood sugars-patient's blood sugars will be monitored, sliding scale insulin will be administered as needed #5 severe dehydration-patient's creatinine and BUN are elevated, I do not have a recent creatinine or BUN in the system so I cannot call this in BLUE. Patient will be given IV fluids and labs will be monitored. #6 elevated troponin-troponin elevations are flat, patient does not complain of any chest pain, I suspect this could be secondary to demand ischemia. #7 dizziness with double vision-patient's admission CT was unremarkable, I will order an MRI of the brain tomorrow, I think it is unlikely the patient has had a stroke Total clinical time spent by myself addressing the patient's medical issues, reviewing all of his data, and collaborating with patient's care team: 35 minutes Charges/Coding Visit Charges Inpatient E&M: 76558 Subs Hosp L2 NIHSS NIHSS Nursing Documentation NIHSS Nursing Documentation: NIHSS: Ischemic Stroke/TIA Start: 03/18/25 08:44 Freq: Status: Active Protocol: Activity Type Activity Date Activity User E-sign Co-sign Detail Recorded Client Recorded Date Recorded By Document 03/18/25 08:10 ROMÁN [id number] 03/18/25 08:45 ROMÁN 03/18/25 08:10 NIH Stroke Scale [NIHSS] A score of 0 is normal or asymptomatic . Total possible score is 42. Inpatient: RN or Physician to activate a stroke alert for onset of new stroke symptoms or with NIHSS increase >/= 3 points. Following change in neurological status, NIHSS will be performed per physician order or more frequently PRN. -1a. Level of Consciousness 0 - Alert; keenly responsive -1b. LOC Questions 0 - Answers BOTH questions correctly -1c. LOC Commands 0 - Performs BOTH tasks correctly -2. Best Gaze 0 - Normal -3. Visual 0 - No visual loss -4. Facial Palsy 0 - Normal symmetrical movements -5a. Left Arm 0 - No drift; arm holds 90 ( or 45) degrees for full 10 seconds -5b. Right Arm 0 - No drift; arm holds 90 ( or 45) degrees for full 10 seconds -6a. Left Leg 0 - No drift; leg holds 30- degree position for full 5 seconds -6b. Right Leg 0 - No drift; leg holds 30- degree position for full 5 seconds -7. Limb Ataxia 0 - Absent -8. Sensory 0 - Normal; no sensory loss -9. Best Language 0 - No aphasia; normal -10. Dysarthria 0 - Normal -11. Extinction and Inattention 0 - No abnormality -Total 0 Query Text:A score of 0 is normal or asymptomatic. Total possible score is 42 . ED: Notify Physician for NIHSS increase by > / = 3 points. Inpatient: RN or Physician to activate a stroke alert for NIHSS increase of > / = 3 points. Coma Scale [Assess] -Eye Opening Spontaneous -Motor Obeys Commands -Verbal Oriented [Total] -Coma Scale Total 15
[2025-03-18] MEDS: KCL 20MEQ in 0.9% NS 20 MEQ/1,000 ML IV.SOLN. 75 MEQ IV (17:42)
[2025-03-19] VITALS (7 sets, daily range): BP systolic 121–148; BP diastolic 70–94; PULSE 73–91; RESP 14–18; TEMP 36.7–37.4; O2SAT 96–100
[2025-03-19] MEDS: Cefepime HCl 1 GM in 0.9% Normal Saline (50mL MB+) 50 ML IV ×3 (05:41→21:50)
[2025-03-19] MEDS: KCL 20MEQ in 0.9% NS 20 MEQ/1,000 ML IV.SOLN. 75 MEQ IV (06:14)
--- NOTE | 2025-03-19 07:55 | PCM.PN.HOSP ---
Reason for Visit Chief Complaint: Generalized weakness, vomiting Objective Data Objective Data Vital Signs: Vital Signs Temp Pulse Resp BP Pulse Ox O2 Del Method 98.4 F 76 14 123/77 H 98 Room Air 03/19/25 03:05 03/19/25 03:05 03/19/25 03:05 03/19/25 03:05 03/19/25 03:05 03/19/25 03:05 Oxygen Delivery Method Room Air Weight: 153 lb 14.122 oz Body Mass Index (BMI) 22.7 Intake & Output: Intake and Output for Last 24 Hours 03/17/25 03/18/25 03/19/25 23:59 23:59 23:59 Intake Total 4764.17 / 5384.17 4466.25 / 4466.25 1260 / 1260 Output Total 450 / 1650 4150 / 4650 1100 / 1100 Balance 4314.17 / 3734.17 316.25 / -183.75 160 / 160 Lab / Micro Data 03/18/25 05:10 03/18/25 05:10 Labs: Laboratory Results - last 24 hr 03/18/25 08:29: POC Glucose 132 H 03/18/25 11:49: POC Glucose 122 H 03/18/25 17:24: POC Glucose 112 H 03/19/25 06:56: POC Glucose 92 Micro: Microbiology 03/17/25 11:12 Mucosa - Nose SARS-CoV-2, Influenza & RSV (PCR) - Final Physical Exam Narrative Seen and examined. Patient complaining of double vision and dizziness started about 4 days ago. He was having near fall and then fall at home. Did not move bowels for 4 days. He vomited 5?6 times vigorously after 1 day of admission. Physical exam General: Alert, Oriented x3, Cooperative HEENT: Diplopia from 6 feet but not close. Rotational/vertical nystagmus. Atraumatic, PERRLA, EOMI, Normocephalic. Oral: No Gingival or Mucosal Lesions/ Ulcerations Neck: Supple, No JVD, Negative Carotid Bruits Chest wall/Lungs: Air entry diminished in bilateral lung bases. No crepitation/rhonchi Cardiovascular: Regular rate and rhythm, Normal S1,S2, No M/G/R Abdomen: Bowel Sounds Present, Soft, mild superficial tenderness on epigastrium and left upper quadrant. Non-Distended : No dysuria. No renal angle tenderness. No suprapubic tenderness. Extremities: No edema, Capillary Refill Less than 3 Seconds Skin: No rashes, No breakdown Musculoskeletal: No Tenderness to Palpation of Joints or Extremities Neurological: Cranial nerves II-XII grossly intact, DTR 2+/4. No acute focal neurological deficit. Psych/Mental Status: Normal Affect, Appropriate. Assessment & Plan Assessment/Plan (1) Sepsis: (2) Hypomagnesemia: PLAN: Plan 54-year-old gentleman admitted with generalized weakness, feeling unwell and numerous episodes of nonbloody nonbilious vomiting. Orthostatics were negative. Did not had hypotension but drop in blood pressure from 166/108 on 03/17 at 11:49 hrs to 122/ on 03/18. 1. Possible sepsis-etiology unclear, patient is leukocytosis is improved, continue present antibiotics and await cultures. Patient does not meet criteria for sepsis as didn't have hypotension but had LA 6.6, improved to 3.6 Troponins decreasing trend at the time of admission, 160, 153 and 146. Liver chemistry shows elevated AST 66. TP 9.4, albumin 5.8. At the time of admission, patient anion gap on BMP was 35, sodium 140, chloride 84, bicarb 21.7. VBG showed bicarb 26, calculated 27, with base excess 2. There is too much discrepancy between bicarb of BMP and VBG with difference of about 5. #2: Electrolyte abnormalities including hypomagnesemia, hypokalemia probably due to nausea and vomiting-resolved at this time. Patient also has complaint of abdominal pain for which CT abdomen was done. No acute abdominal pelvic abnormality. #3 lactic acidosis-etiology unclear at this point, again I suspect patient may have sepsis and he is being covered with broad-spectrum antibiotics. Blood cultures are pending #4. Elevated blood sugars-patient's blood sugars are being monitored. Glucose 98 on BMP. #5 severe dehydration-patient's creatinine and BUN are elevated, I do not have a recent creatinine or BUN in the system so I cannot call this in BLUE. Patient will be given IV fluids and labs will be monitored. #6 elevated troponin-troponin elevations are flat, patient does not complain of any chest pain, I suspect this could be secondary to demand ischemia. #7 dizziness with double vision-patient's admission CT was unremarkable, MRI is ordered. Patient is very claustrophobic therefore 0.5 mg IV Ativan ordered. Charges/Coding Visit Charges Inpatient E&M: 33407 Subs Hosp L2 NIHSS NIHSS Nursing Documentation NIHSS Nursing Documentation: NIHSS: Ischemic Stroke/TIA Start: 03/18/25 08:44 Freq: Status: Active Protocol: Activity Type Activity Date Activity User E-sign Co-sign Detail Recorded Client Recorded Date Recorded By Document 03/18/25 08:10 ROMÁN [id number] 03/18/25 08:45 ROMÁN 03/18/25 08:10 NIH Stroke Scale [NIHSS] A score of 0 is normal or asymptomatic . Total possible score is 42. Inpatient: RN or Physician to activate a stroke alert for onset of new stroke symptoms or with NIHSS increase >/= 3 points. Following change in neurological status, NIHSS will be performed per physician order or more frequently PRN. -1a. Level of Consciousness 0 - Alert; keenly responsive -1b. LOC Questions 0 - Answers BOTH questions correctly -1c. LOC Commands 0 - Performs BOTH tasks correctly -2. Best Gaze 0 - Normal -3. Visual 0 - No visual loss -4. Facial Palsy 0 - Normal symmetrical movements -5a. Left Arm 0 - No drift; arm holds 90 ( or 45) degrees for full 10 seconds -5b. Right Arm 0 - No drift; arm holds 90 ( or 45) degrees for full 10 seconds -6a. Left Leg 0 - No drift; leg holds 30- degree position for full 5 seconds -6b. Right Leg 0 - No drift; leg holds 30- degree position for full 5 seconds -7. Limb Ataxia 0 - Absent -8. Sensory 0 - Normal; no sensory loss -9. Best Language 0 - No aphasia; normal -10. Dysarthria 0 - Normal -11. Extinction and Inattention 0 - No abnormality -Total 0 Query Text:A score of 0 is normal or asymptomatic. Total possible score is 42 . ED: Notify Physician for NIHSS increase by > / = 3 points. Inpatient: RN or Physician to activate a stroke alert for NIHSS increase of > / = 3 points. Coma Scale [Assess] -Eye Opening Spontaneous -Motor Obeys Commands -Verbal Oriented [Total] -Coma Scale Total 15
[2025-03-19] MEDS: Heparin Injection (Vial) 5,000 UNIT/ML VIAL 5000 UNIT SC ×2 (08:22→21:49)
[2025-03-19] MEDS: 0.9% Saline Lock 10 ML Syringe IV ×4 (08:23→21:50)
[2025-03-19] MEDS: Lorazepam 2 MG/ML WCH Syringe 0.5 MG IV (09:47)
--- NOTE | 2025-03-19 10:20 | MRI_ITS ---
PROCEDURE: BRAIN WITHOUT CONTRAST 03/19/2025 REASON FOR EXAM: DOUBLE VISION TECHNIQUE: BRAIN WITHOUT CONTRAST Multiplanar and multisequence images were obtained. COMPARISON: CT head without contrast, 03/17/2025. FINDINGS: There is a normal sulcal pattern and gyral configuration. There is no evidence of acute intracranial hemorrhage or infarction. The myers-white differentiation is well preserved. There is no evidence of restricted diffusion. The ventricles and basilar cisterns are normal. There are normal flow voids demonstrated in the recognized intracranial vessels. The cerebellum and brainstem are unremarkable. The cerebellar pontine angles are normal. The craniovertebral junction is normal. The sella, pituitary infundibulum, suprasellar cistern and optic chiasm are unremarkable. The orbits and retro-orbital regions are unremarkable. The nasal septum is midline. There is diffuse mucoperiosteal thickening of the paranasal sinuses. There are mucous retention cysts in both maxillary sinuses and in the right sphenoid sinus. The mastoid air cells are clear. There is normal bone marrow signal in the skull base and calvarium. MRI/Brain without Contrast IMPRESSION: 1. No evidence of intracranial pathology. 2. Pansinusitis. Reading Location: [place] [address]
[2025-03-19] MEDS: Senna/Docusate Sodium 1 Tablet 2 TABLET PO (11:30)
[2025-03-19 12:00] LABS: Vancomycin, Trough Level 7.1 ug/mL (5.0-15.0)
--- NOTE | 2025-03-19 12:16 | PCM.RX.CS ---
Consult Antibiotic Management Pharmacy has been consulted to manage selected antibiotic: Vancomycin Type of Intervention Type of Consult: Follow-up Labs Labs: Sodium 141 mmol/L (133-145) 03/18/25 05:10 Potassium 3.7 mmol/L (3.3-5.1) 03/18/25 05:10 Chloride 102 mmol/L (98-108) 03/18/25 05:10 Carbon Dioxide 26.0 mmol/L (21.0-32.0) 03/18/25 05:10 Anion Gap 13 (5-15) 03/18/25 05:10 BUN 18 mg/dL (4-19) 03/18/25 05:10 Creatinine 1.07 mg/dL (0.70-1.20) 03/18/25 05:10 Est GFR (MDRD) Non-Af 82 (>60) 03/18/25 05:10 BUN/Creatinine Ratio 17.0 RATIO (10-20) 03/18/25 05:10 Glucose 98 mg/dL (70-99) 03/18/25 05:10 Vancomycin Trough 7.1 ug/mL (5.0-15.0) 03/19/25 11:24 Microbiology Microbiology: Microbiology 03/19/25 08:50 Nasal Secretion MRSA (PCR) - Final 03/17/25 13:27 Urine, Clean Catch Urine Culture - Final Culture exhibits no growth. 03/17/25 11:12 Mucosa - Nose SARS-CoV-2, Influenza & RSV (PCR) - Final Pharmacy Plan for Drug Dosing Pharmacy Plan for Drug Dosing: VANCOMYCIN LEVEL RECEIVED Current Vancomycin Dose: 1000MG Q12 Number of Doses Received: 3 Vancomycin Level: 7.1MG/DL Hours Since Last Dose: 12.5 Renal Function: SCr 1.07 mg/dL, CrCl 77 mL/min Renal Function Trend: no new level Vancomycin Plan/Comments: 12.5 hour trough is subtherapeutic at 7.1mg/dL (goal 15-20). Will increase dose to 1500mg Q12 and get a trough prior to 4th dose of new regimen. Pending Level: 03/21/25 @ 0030 Pharmacy Service will continue to monitor and adjust dosing as required.
--- NOTE | 2025-03-19 12:20 | CASEMGMT ---
CINDY SRIVASTAVA Assessment: Face to Face with pt for initial transition planning/care coordination assessment. CINDY SRIVASTAVA introduced self and role at [facility], pt voices understanding and consents to assessment. Pt is A&O x4 and answers all questions appropriately at this time. Pt sitting up in bed in no distress. Care providers, pharmacy, and demographics verified/updated. Strata: 2 Admitting Dx: Suspected Sepsis PCP: Mera Specialists: Denies Preferred Pharmacy: [facility] ([facility]) Insurance: Recommind Prescription Benefit: yes LNOK: Sister's (Jessica Gonzalez) Living Arrangements: Pt lives with mom in a duplex with no steps to enter in. Pt states he takes care of his 90 year old mom at home. ADLs: Pt states I with ADLs and IADLs. Transportation: Pt drives self and denies concerns with transportation. DME: Dnies HHC/SNF: Previously had HHC several years ago but does not recall agency. Pt states no concerns with going home at time of dc. Pt states no further concerns/needs. CM to follow. Advised pt to ask CM if any further question/concerns/needs arise, voices understanding. CINDY SRIVASTAVA provided report to CINDY SRIVASTAVA on unit. Pt Goal: Home Plan: Home, follow therapy recommnedations and for safe DC plan. Luiz WHITE CM
[2025-03-19] MEDS: Vancomycin HCl 1,500 MG in 0.9% Normal Saline (500mL Bag) 500 ML 250 MG IV (14:01)
[2025-03-19] MEDS: 0.9% Normal Saline (250mL Bag) 250 ML 15 ML IV (14:08)
--- NOTE | 2025-03-19 16:23 | CHAPLAIN ---
Type of Pastoral Visit _x__ Initial Visit ___ Follow-up Visit ___ On-call Visit ___ General Patient Visit ___ Spiritual Assessment ___ Family Conference ___ Bereavement ___ Rapid Response ___ Code Blue ___ Other (describe below) Pastoral Care Referral From _x__ Patient ___ Family ___ Nurse ___ Physician ___ Geologist ___ Nurse Sane ___ Other (describe below) Sacrament/Intervention _x__ Active listening ___ Anointing ___ Latter-Day ___ Bereavement ___ Communion ___ Karli exploration ___ _x__ Life review _x__ Prayer ___ Reconciliation ___ Sacrament of Sick _x__ Supportive presence ___ Wedding ___ Other (describe below) Pastoral Comments patient is welcoming and talkative; pt admits to desire to get 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
[2025-03-20 03:00] VITALS: BP 142/82; PULSE 81; RESP 16; TEMP 36.6; O2SAT 100
[2025-03-20] MEDS: Cefepime HCl 1 GM in 0.9% Normal Saline (50mL MB+) 50 ML IV (05:46)
[2025-03-20 07:17] LABS: Hematocrit 35.3 % (40-54); Hemoglobin 11.9 g/dL (13.0-16.5); Immature Granulocytes Count 0.020 X10^3/uL (0.0-0.0); Mean Corp Hgb Conc 33.7 g/dL (32-36); Mean Corpuscular Volume 98.9 fL (80-94); Mean Platelet Vol. 9.7 fl (6.2-12.0); NRBC Flagged by Analyzer 0 % (0-5); Platelet Count 315 K/mm3 (150-450); RBC Distribution Width CV 12.8 % (11.6-14.6); RBC Distribution Width SD 46.4 fl (35.1-43.9); Red Blood Count 3.57 M/mm3 (4.6-6.2); White Blood Count 7.0 K/mm3 (4.4-11.0)
[2025-03-20 07:48] LABS: AST(SGOT) 60 U/L (<=37); Alanine Aminotransfer ALT/SGPT 35 U/L (<=46); Albumin, Serum 3.5 g/dL (3.5-5.0); Alkaline Phosphatase 85 U/L (40-129); Anion Gap 9 (5-15); BUN 16 mg/dL (4-19); BUN/Creat Ratio 25.5 RATIO (10-20); Bilirubin, Direct 0.17 mg/dL (0.00-0.30); Calcium,Total 7.8 mg/dL (7.6-11.0); Carbon Dioxide 22.0 mmol/L (21.0-32.0); Chloride 108 mmol/L (98-108); Estimated Creatinine Clearance 135.09 ml/min (50-250); Globulin 1.9 g/dL (2.2-4.2); Glucose 97 mg/dL (70-99); Potassium 4.1 mmol/L (3.3-5.1)
[2025-03-20 09:21] VITALS: BP 140/90; PULSE 91; RESP 16; TEMP 36.7; O2SAT 100
--- NOTE | 2025-03-20 10:58 | PCM.DC ---
Discharge Instructions DC O2, CPAP, BIPAP needs Home O2 Discharge instructions: No Follow Up Care Test Results: Test results from this visit will be discussed in further detail at your follow-up appointment, if applicable. Discharge Plan Admission Admit Date/Time: 03/17/25 13:43 Primary Reason for Your Visit: Dizziness, vertigo. Pansinusitis Attending Provider: Roshan Bunn Primary Care Provider: Montana Tesfaye Consulting Providers: Andrea Munoz Discharge Orders/Prescriptions Prescriptions: New azithromycin [Zithromax] 500 mg tablet 500 mg PO DAILY 3 Days Qty: 3 0RF Rx Instructions: 2 more days Continued vitamin Q47-ilewe acid 500-400 mcg tablet 1 tab PO QDAY allopurinol 300 mg tablet 300 ea PO DAILY Patient Comments: TAKE 1 TABLET BY MOUTH DAILY finasteride 5 MG tablet 5 mg PO DAILY Qty: 30 0RF tamsulosin 0.4 MG capsule 0.4 mg PO DAILY@1730 amlodipine 10 mg tablet 10 mg PO DAILY calcium citrate 200 mg (950 mg) tablet 400 mg PO BID 30 Days Qty: 120 0RF magnesium oxide 400 MG tablet 800 mg PO BIDCM 30 Days Qty: 120 0RF omeprazole 20 mg capsule,delayed release(DR/EC) 20 mg PO DAILY Patient Comments: TAKE 1 CAPSULE BY MOUTH 1/2 HOUR before breakfast DAILY Referrals / Follow Up: Montana Tesfaye MD [Primary Care Provider] - Zia Osman MD [Med Staff - Biomedical Field Service Engineer] - Within 2 Weeks Robson Mauro MD [Med Staff - Active Staff] - Within 1 Month (For pansinusitis, dizziness and vertigo) Disposition Disposition (needs filled in before D/C Order can be placed): Home, Self Care
--- NOTE | 2025-03-20 11:05 | DS.PCM_ITS ---
Providers Date of Admission: 03/17/25 Date of Discharge: 03/20/25 Primary Care Physician: Dr. Montana Tesfaye MD Reason For Visit: SUSPECTED SEPSIS-ETIOLOGY UNCLEAR Diagnosis Discharge Diagnosis (1) Sepsis: Status: Resolved Code(s): A41.9 - Sepsis, unspecified organism (2) Hypomagnesemia: Status: Acute Code(s): E83.42 - Hypomagnesemia Plan 54-year-old gentleman admitted with generalized weakness, feeling unwell and numerous episodes of nonbloody nonbilious vomiting. Orthostatics were negative. Did not had hypotension but drop in blood pressure from 166/108 on 03/17 at 11:49 hrs to 122/ on 03/18. 1. Possible sepsis-etiology unclear, patient is leukocytosis is improved, continue present antibiotics and await cultures. Patient does not meet criteria for sepsis as didn't have hypotension but had LA 6.6, improved to 3.6 Troponins decreasing trend at the time of admission, 160, 153 and 146. Liver chemistry shows elevated AST 66. TP 9.4, albumin 5.8. At the time of admission, patient anion gap on BMP was 35, sodium 140, chloride 84, bicarb 21.7. VBG showed bicarb 26, calculated 27, with base excess 2. There is too much discrepancy between bicarb of BMP and VBG with difference of about 5. /: MRI shows pansinusitis otherwise no acute intracranial abnormality. Sepsis ruled out. During inpatient, patient was treated with IV cefepime. Blood cultures x 2, urine culture, MRSA PCR, triple PCR for SARS-CoV-2, flu and RSV are negative or negative. Patient has been started therefore discharged on 3 more days of azithromycin. Patient is allergic to penicillin. #2: Electrolyte abnormalities including hypomagnesemia, hypokalemia probably due to nausea and vomiting-resolved at this time. Patient also has complaint of abdominal pain for which CT abdomen was done. No acute abdominal pelvic abnormality. 03/20: Electrolyte abnormalities with corrected. #3 lactic acidosis-etiology unclear at this point, again I suspect patient may have sepsis and he is being covered with broad-spectrum antibiotics. Blood cultures are pending #4. Elevated blood sugars-patient's blood sugars are being monitored. Glucose 98 on BMP. #5 severe dehydration-patient's creatinine and BUN are elevated, I do not have a recent creatinine or BUN in the system so I cannot call this in BLUE. Patient will be given IV fluids and labs will be monitored. #6 elevated troponin-troponin elevations are flat, patient does not complain of any chest pain, I suspect this could be secondary to demand ischemia. #7 dizziness with double vision-patient's admission CT was unremarkable, MRI is ordered. Patient is very claustrophobic therefore 0.5 mg IV Ativan ordered. Dizziness/vertigo peripheral probably due to pansinusitis. Follow-up with ENT Dr. Mauro. Discharge medication reconciliation done. Discharge follow-up instructions completed. Discharge process discussed with the patient and all questions were answered to patient's satisfaction. Follow with PCP in 1 to 2 weeks Total time spent, exact 35 minutes on discharge meds reconciliation, examination, coordination of care with nurses and ancillary staff, review of imaging and blood test and discussion with the patient on follow-up instructions. Medications at Discharge Home Medications finasteride 5 mg tablet 5 mg PO DAILY #30 tabs 06/20/17 tamsulosin 0.4 mg capsule 0.4 mg PO DAILY@1730 PROSTATE 06/29/17 vitamin B12 500 mcg-folic acid 400 mcg tablet 1 tab PO QDAY supplement 01/04/18 allopurinol 300 mg tablet 300 ea PO DAILY gout 11/17/22 amlodipine 10 mg tablet 10 mg PO DAILY BP 11/17/22 calcium citrate 400 mg (2 x 200 mg (950 mg)) PO BID 30 days #120 tabs 11/19/22 magnesium oxide 400 mg (241.3 mg magnesium) tablet 800 mg (2 x 400 mg (241.3 mg magnesium)) PO BIDCM SUPPLEMENT 30 days #120 tabs 11/19/22 omeprazole 20 mg capsule,delayed release 20 mg PO DAILY 01/07/23 azithromycin 500 mg tablet (Zithromax) 500 mg PO DAILY 3 days #3 tabs 03/20/25 Physical Exam Narrative Seen and examined. Double vision and dizziness have resolved. MRI negative for acute stroke. Patient is dressed up to go home. Physical exam General: Alert, Oriented x3, Cooperative HEENT: DicloPR and nystagmus resolved. Atraumatic, PERRLA, EOMI, Normocephalic. Oral: No Gingival or Mucosal Lesions/ Ulcerations Neck: Supple, No JVD, Negative Carotid Bruits Chest wall/Lungs: Air entry diminished in bilateral lung bases. No crepitation/rhonchi Cardiovascular: Regular rate and rhythm, Normal S1,S2, No M/G/R Abdomen: Bowel Sounds Present, Soft, no tenderness. Non-Distended : No dysuria. No renal angle tenderness. No suprapubic tenderness. Extremities: No edema, Capillary Refill Less than 3 Seconds Skin: No rashes, No breakdown Musculoskeletal: No Tenderness to Palpation of Joints or Extremities Neurological: Cranial nerves II-XII grossly intact, DTR 2+/4. No acute focal neurological deficit. Psych/Mental Status: Normal Affect, Appropriate. Weight / BMI Weight Weight: 153 lb 14.122 oz Body Mass Index (BMI) 22.7 ABG / Lab / Microbiology Data 03/20/25 06:25 03/20/25 06:25 Laboratory: Laboratory Results - last 24 hr 03/19/25 11:24: Vancomycin Trough 7.1 03/19/25 11:29: POC Glucose 72 L 03/19/25 16:50: POC Glucose 112 H 03/20/25 06:25: WBC 7.0, RBC 3.57 L, Hgb 11.9 L, Hct 35.3 L, MCV 98.9 H, MCH 33.3 H, MCHC 33.7, RDW Std Deviation 46.4 H, RDW Coeff of Oleksandr 12.8, Plt Count 315, MPV 9.7, Immature Gran % (Auto) 0.300, Neut % (Auto) 63.8, Lymph % (Auto) 19.7, Weld % (Auto) 11.9 H, Eos % (Auto) 3.4, Baso % (Auto) 0.9, Absolute Neuts (auto) 4.5, Absolute Lymphs (auto) 1.39, Nucleated RBC % 0, Sodium 139, Potassium 4.1, Chloride 108, Carbon Dioxide 22.0, Anion Gap 9, BUN 16, C reatinine 0.61 L, Estim Creat Clear Calc 135.09, Est GFR (MDRD) Non-Af 114, B UN/Creatinine Ratio 25.5 H, Glucose 97, Hemoglobin A1c 5.1, Calcium 7.8, Total Bilirubin 0.36, Direct Bilirubin 0.17, AST 60 H, ALT 35, Alkaline Phosphatase 85, Total Protein 5.4 L, Albumin 3.5, Globulin 1.9 L 03/20/25 07:47: POC Glucose 90 Microbiology: Microbiology 03/17/25 11:12 Blood Culture (Wb) - Anticubital Left Blood Culture - Preliminary No growth in 48 hours. 03/17/25 11:12 Blood Culture (Wb) - Anticubital Right Blood Culture - Preliminary No growth in 48 hours. 03/19/25 08:50 Nasal Secretion MRSA (PCR) - Final 03/17/25 13:27 Urine, Clean Catch Urine Culture - Final Culture exhibits no growth. 03/17/25 11:12 Mucosa - Nose SARS-CoV-2, Influenza & RSV (PCR) - Final Radiography Diagnostic Testing: Radiology Impression Brain MRI 03/19/25 10:20 IMPRESSION: 1. No evidence of intracranial pathology. 2. Pansinusitis. Reading Location: [place] [address] D/C Instructions DC O2, CPAP, BIPAP Needs Home O2 Discharge instructions: No Meaningful Use Info Meaningful Use Meaningful Use Diagnoses (Choose all that apply): None applicable Discharge Plan Admission Admit Date/Time: 03/17/25 13:43 Primary Reason for Your Visit: Dizziness, vertigo. Pansinusitis Attending Provider: Roshan Bunn Primary Care Provider: Montana Tesfaye Consulting Providers: Andrea Munoz Discharge Orders/Prescriptions Prescriptions: New azithromycin [Zithromax] 500 mg tablet 500 mg PO DAILY 3 Days Qty: 3 0RF Rx Instructions: 2 more days Continued vitamin B34-ahjlb acid 500-400 mcg tablet 1 tab PO QDAY allopurinol 300 mg tablet 300 ea PO DAILY Patient Comments: TAKE 1 TABLET BY MOUTH DAILY finasteride 5 MG tablet 5 mg PO DAILY Qty: 30 0RF tamsulosin 0.4 MG capsule 0.4 mg PO DAILY@1730 amlodipine 10 mg tablet 10 mg PO DAILY calcium citrate 200 mg (950 mg) tablet 400 mg PO BID 30 Days Qty: 120 0RF magnesium oxide 400 MG tablet 800 mg PO BIDCM 30 Days Qty: 120 0RF omeprazole 20 mg capsule,delayed release(DR/EC) 20 mg PO DAILY Patient Comments: TAKE 1 CAPSULE BY MOUTH 1/2 HOUR before breakfast DAILY Referrals / Follow Up: Montana Tesfaye MD [Primary Care Provider] - Zia Osman MD [Med Staff - Drying Machine Back Tender] - Within 2 Weeks Robson Mauro MD [Med Staff - Active Staff] - Within 1 Month (For pansinusitis, dizziness and vertigo) Disposition Disposition (needs filled in before D/C Order can be placed): Home, Self Care Charges/Coding Visit Charges Inpatient E&M: 90744 Disch Hosp >30min
--- NOTE | 2025-03-20 11:15 | CASEMGMT ---
Patient has order for discharge. RN CM in to discuss needs at discharge. Patient denies needs or help at discharge. Patient had no further questions or concerns.
== END 2025-03-20 11:18 | disposition home or self-care (01) | DRG 422 ==
LOC: ED 12:05 → PCU 14:36
PROVIDERS: Admitting Provider Internal Medicine; Emergency Provider Student in an Organized Health Care Education/Training Program; PCP Family Medicine; Referring Provider Student in an Organized Health Care Education/Training Program; Visit Provider Internal Medicine
DX: E87.20 Acidosis, unspecified (principal); E86.0 Dehydration; I24.89 Other forms of acute ischemic heart disease; I10 Essential (primary) hypertension; E87.6 Hypokalemia; E83.42 Hypomagnesemia; K21.9 Gastro-esophageal reflux disease without esophagitis; H81.399 Other peripheral vertigo, unspecified ear; R11.2 Nausea with vomiting, unspecified; F17.210 Nicotine dependence, cigarettes, uncomplicated; H53.2 Diplopia; J32.4 Chronic pansinusitis; R73.9 Hyperglycemia, unspecified; R10.9 Unspecified abdominal pain; N40.1 Benign prostatic hyperplasia with lower urinary tract symptoms; R33.8 Other retention of urine; Z11.52 Encounter for screening for COVID-19; F40.240 Claustrophobia; Z88.0 Allergy status to penicillin; Z79.899 Other long term (current) drug therapy
CPT/HCPCS: 36415; 70450; 70551; 71046; 74177; 80048; 80053; 80076; 80202; 81001; 82077; 82803; 82962; 83036; 83605; 83690; 83735; 84484; 85025; 87040; 87086; 87631; 87641; 93005; 97110; 97162; 97165; 97530; 97535; 99285; 99406; Q9967; A4216